=== PATIENT | female | born 1975 | race Caucasian/White ===

== ENCOUNTER 2017-07-15 23:12 | Emergency (ER) | payer MEDICAID, OTHER ==
[2017-07-16] MEDS ORDERED: Aspirin 81 MG Tab.Chew PO ONE (01:04)
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
== END 2017-07-16 01:40 | disposition home or self-care (01) ==
LOC: JP.ED 23:12
DX: G45.9 Transient cerebral ischemic attack, unspecified (principal); F17.210 Nicotine dependence, cigarettes, uncomplicated; Z88.8 Allergy status to other drugs, medicaments and biological substances
CPT/HCPCS: 36415; 70450; 80053; 80305; 81001; 85025; 85610; 85730; 93005; 93010; 99285; A9270; 99284

== ENCOUNTER 2017-07-29 17:49 | Emergency (ER) | payer MEDICAID ==
--- NOTE | 2017-07-29 18:38 | EDM.PDOC ---
ED HPI GENERAL MEDICAL PROBLEM - General Chief Complaint: Back Pain or Injury Stated Complaint: BACK PAIN Time Seen by Provider: 07/29/17 18:10 Source of Information: Reports: Patient, Family History Limitations: Reports: No Limitations - History of Present Illness INITIAL COMMENTS - FREE TEXT/NARRATIVE: 42-year-old female with several chronic medical conditions has apparently an ongoing problem with nephrolithiasis. She has left flank pain for the last 1-2 days, generalized body aches and chills. Nausea but no vomiting. Onset: Gradual (Over the past several days) Location: Reports: Abdomen, Back (Left flank) Quality: Reports: Ache, Pressure Severity: Moderate Associated Symptoms: Reports: Fever/Chills, Malaise, Other (Generalized myalgias ) - Related Data Allergies Allergy/AdvReac Type Severity Reaction Status Date / Time lamotrigine [From Lamictal] Allergy Leg Cramps Verified 07/16/17 00:00 ziprasidone [From Geodon] Allergy Airway Verified 07/16/17 00:00 Tightness Home Meds: Home Meds Albuterol Sulfate 1 ampule INH Q4HR 07/29/17 [History] Calcium Carbonate [Tums] 1 tab PO QID 07/29/17 [History] Cyanocobalamin (Vitamin B-12) [B-12] 1 tab PO DAILY 07/29/17 [History] Ferrous Gluconate 1 tab PO DAILY 07/29/17 [History] Folic Acid 1 tab PO DAILY 07/29/17 [History] Gabapentin [Neurontin] 2 tab PO BID 07/29/17 [History] Hydrocodone/Acetaminophen [Vicodin 5-300 mg Tablet] 1 tab PO Q4HR PRN 07/29/17 [ History] Lactulose 15 ml PO BID 07/29/17 [History] Magnesium Oxide [Magnesium] 1 tab PO BID 07/29/17 [History] Omeprazole 1 tab PO BID 07/29/17 [History] Ondansetron [Zofran ODT] 1 tab PO DAILY 07/29/17 [History] Rifaximin [Xifaxan] 1 tab PO TID 07/29/17 [History] Thiamine [Vitamin B-1] 1 tab PO DAILY 07/29/17 [History] hydrOXYzine Pamoate [Hydroxyzine Pamoate] 1 tab PO TID PRN 07/29/17 [History] levETIRAcetam [Keppra] 1 tab PO BID 07/29/17 [History] Past Medical History Cardiovascular History: Reports: [place], Other (See Below) Other Cardiovascular History: portal hypertension Gastrointestinal History: Reports: Cirrhosis, Other (See Below) Other Gastrointestinal History: ascites, liver disease,cholecystitis hepatic encephalopathy Genitourinary History: Reports: Renal Calculus 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: Other (See Below) Other OB/BYN History: Irregular [place] Neurological History: Reports: Brain Injury, Head Trauma, Seizure, Other (See Below) Other Neuro History: TBI ICH Skull defect Psychiatric History: Reports: Anxiety Hematologic History: Reports: Iron Deficiency, Other (See Below) Other Hematologic History: Hypokelemia,hypomagnesemia,hyponatremia Oncologic (Cancer) History: Reports: Cervix - Past Surgical History Cardiovascular Surgical History: Reports: Coronary Artery Bypass GI Surgical History: Reports: Cholecystectomy Social & Family History - Tobacco Use Smoking Status *Q: Current Every Day Smoker Years of Tobacco use: 35 Packs/Tins Daily: 0.2 Used Tobacco, but Quit: No Second Hand Smoke Exposure: Yes - Caffeine Use Caffeine Use: Reports: Coffee, Soda - Recreational Drug Use Recreational Drug Use: No ED ROS GENERAL - Review of Systems Review Of Systems: See Below Constitutional: Reports: Chills, Malaise HEENT: Reports: No Symptoms Respiratory: Denies: Shortness of Breath Cardiovascular: Reports: Other (History of a cardiac bypass). Denies: Chest Pain GI/Abdominal: Reports: Abdominal Pain. Denies: Vomiting : Reports: Incontinence (Chronic incontinence, some dysuria over the past several days) Neurological: Reports: Other (History of severe brain trauma/stroke) ED EXAM, GENERAL - Physical Exam Exam: See Below Exam Limited By: No Limitations General Appearance: Alert, Mild Distress (Looks uncomfortable but stable) Eye Exam: Bilateral Eye: EOMI Head: Other (Fairly large right-sided postsurgical deficit of the cranium) Respiratory/Chest: No Respiratory Distress, Lungs Clear Cardiovascular: Regular Rate, Rhythm GI/Abdominal: Soft, Tender (Reactive tenderness to palpation across the lower and left abdomen, questionable guarding and rebound is present) Neurological: Alert, Oriented Psychiatric: Flat Affect Skin Exam: Warm, Dry Course - Vital Signs Last Recorded V/S: Last Vital Signs Temp 97.5 F 07/29/17 18:26 Pulse 81 07/29/17 18:26 Resp 18 07/29/17 18:26 BP 137/80 07/29/17 18:26 Pulse Ox 98 07/29/17 18:26 - Orders/Labs/Meds Orders: Active Orders 24 hr Category Date Time Status Abdomen Pelvis wo Cont [CT] Stat Exams 07/29/17 18:34 Taken CULTURE URINE [RM] Stat Lab 07/29/17 19:07 Received Labs: Laboratory Tests 07/29/17 07/29/17 07/29/17 Range/Units 18:49 18:49 19:23 WBC 5.0 (4.5-11.0) K/uL RBC 3.29 L (3.30-5.50) M/uL Hgb 10.2 L (12.0-15.0) g/dL Hct 32.0 L (36.0-48.0) % MCV 97 (80-98) fL MCH 31 (27-31) pg MCHC 32 (32-36) % Plt Count 108 L (150-400) K/uL Neut % (Auto) 31 L (36-66) % Lymph % (Auto) 50 H (24-44) % [place] % (Auto) 11 H (2-6) % Eos % (Auto) 7 H (2-4) % Baso % (Auto) 1 (0-1) % Sodium (140-148) mmol/L Potassium (3.6-5.2) mmol/L Chloride (100-108) mmol/L Carbon Dioxide (21-32) mmol/L Anion Gap (5.0-14.0) mmol/L BUN (7-18) mg/dL Creatinine (0.6-1.0) mg/dL Est Cr Clr Drug Dosing mL/min Estimated GFR (MDRD) (>60) Glucose (74-106) mg/dL Calcium (8.5-10.1) mg/dL Urine Color Yellow Urine Appearance Slightly cloudy Urine pH 6.5 (4.5-8.0) Ur Specific [place] 1.015 (1.008-1.030) Urine Protein 30 H (NEGATIVE) mg/dL Urine Glucose (UA) Normal (NEGATIVE) mg/dL Urine Ketones Negative (NEGATIVE) mg/dL Urine Occult Blood Large (NEGATIVE) Urine Nitrite Negative (NEGATIVE) Urine Bilirubin Negative (NEGATIVE) Urine Urobilinogen Normal (NORMAL) mg/dL Ur Leukocyte Esterase Large (NEGATIVE) Urine RBC Semi-packed H (0-5) Urine WBC >100 H (0-5) Ur Epithelial Cells Few Amorphous Sediment Not seen Urine Bacteria Many Urine Mucus Few Urine Opiates Screen Negative (NEGATIVE) Ur Oxycodone Screen Negative (NEGATIVE) Urine Methadone Screen Negative (NEGATIVE) Ur Propoxyphene Screen Negative (NEGATIVE) Ur Barbiturates Screen Negative (NEGATIVE) Ur Tricyclics Screen Negative (NEGATIVE) Ur Phencyclidine Scrn Negative (NEGATIVE) Ur Amphetamine Screen Negative (NEGATIVE) U Methamphetamines Scrn Negative (NEGATIVE) Urine MDMA Screen Negative (NEGATIVE) U Benzodiazepines Scrn Negative (NEGATIVE) U Cocaine Metab Screen Negative (NEGATIVE) U Marijuana (THC) Screen Negative (NEGATIVE) 07/29/17 Range/Units 19:23 WBC (4.5-11.0) K/uL RBC (3.30-5.50) M/uL Hgb (12.0-15.0) g/dL Hct (36.0-48.0) % MCV (80-98) fL MCH (27-31) pg MCHC (32-36) % Plt Count (150-400) K/uL Neut % (Auto) (36-66) % Lymph % (Auto) (24-44) % [place] % (Auto) (2-6) % Eos % (Auto) (2-4) % Baso % (Auto) (0-1) % Sodium 148 (140-148) mmol/L Potassium 3.5 L (3.6-5.2) mmol/L Chloride 114 H (100-108) mmol/L Carbon Dioxide 26 (21-32) mmol/L Anion Gap 11.5 (5.0-14.0) mmol/L BUN 10 (7-18) mg/dL Creatinine 0.9 (0.6-1.0) mg/dL Est Cr Clr Drug Dosing 65.98 mL/min Estimated GFR (MDRD) > 60 (>60) Glucose 91 (74-106) mg/dL Calcium 8.4 L (8.5-10.1) mg/dL Urine Color Urine Appearance Urine pH (4.5-8.0) Ur Specific [place] (1.008-1.030) Urine Protein (NEGATIVE) mg/dL Urine Glucose (UA) (NEGATIVE) mg/dL Urine Ketones (NEGATIVE) mg/dL Urine Occult Blood (NEGATIVE) Urine Nitrite (NEGATIVE) Urine Bilirubin (NEGATIVE) Urine Urobilinogen (NORMAL) mg/dL Ur Leukocyte Esterase (NEGATIVE) Urine RBC (0-5) Urine WBC (0-5) Ur Epithelial Cells Amorphous Sediment Urine Bacteria Urine Mucus Urine Opiates Screen (NEGATIVE) Ur Oxycodone Screen (NEGATIVE) Urine Methadone Screen (NEGATIVE) Ur Propoxyphene Screen (NEGATIVE) Ur Barbiturates Screen (NEGATIVE) Ur Tricyclics Screen (NEGATIVE) Ur Phencyclidine Scrn (NEGATIVE) Ur Amphetamine Screen (NEGATIVE) U Methamphetamines Scrn (NEGATIVE) Urine MDMA Screen (NEGATIVE) U Benzodiazepines Scrn (NEGATIVE) U Cocaine Metab Screen (NEGATIVE) U Marijuana (THC) Screen (NEGATIVE) Meds: Medications Discontinued Medications Generic Name Dose Route Start Last Admin Trade Name Freq PRN Reason Stop Dose Admin Ciprofloxacin 500 mg 07/29/17 21:52 07/29/17 21:54 Ciprofloxacin Hcl PO 07/29/17 21:53 500 mg ONETIME ONE Administration Ciprofloxacin Confirm 07/29/17 21:52 Ciprofloxacin Hcl Administered 07/29/17 21:53 Dose 500 mg .ROUTE .STK-MED ONE Hydromorphone HCl 0.5 mg 07/29/17 19:12 07/29/17 20:03 Dilaudid IVPUSH 07/29/17 19:13 0.5 mg ONETIME ONE Administration Sodium Chloride 1,000 mls @ 500 mls/hr 07/29/17 19:15 07/29/17 19:42 Normal Saline IV 500 mls/hr ASDIRECTED JOSE Administration Ceftriaxone Sodium 2 gm/ 50 mls @ 100 mls/hr 07/29/17 19:15 07/29/17 19:43 Sodium Chloride IV 07/29/17 19:44 100 mls/hr ONETIME ONE Administration Ondansetron HCl 4 mg 07/29/17 19:57 07/29/17 20:03 Zofran IVPUSH 07/29/17 19:58 4 mg ONETIME ONE Administration Ondansetron HCl Confirm 07/29/17 19:59 07/29/17 20:04 Zofran Administered 07/29/17 20:00 Not Given Dose 4 mg .ROUTE .STK-MED ONE - Re-Assessments/Exams Free Text/Narrative Re-Assessment/Exam: 07/29/17 19:21 Initially a UA was obtained by miniature catheterization, which was packed with RBCs, WBCs and bacteria. A CT of the abdomen and pelvis without contrast was obtained which showed a stent in the left ureter. The patient did not disclose this in her history. When I questioned her about it she said that she had had the stent placed about 2 months ago. She then admitted she was supposed to follow-up in one month but did not make her follow-up appointment because she was in a "bad place". A CBC and BMP were then obtained, a urine culture was initiated and the patient was given 2 g of Rocephin IV. When lab reports return and the CT iss read, urology at [place] will be consulted. 07/29/17 20:21 CT was read with the following findings 1. Left nephroureteral stent appears in satisfactory position but there is moderate dilatation of left renal pelvis and intrarenal collecting system. If clinically desired further evaluation could be done to ensure the left nephro ureteral stent is patent and functioning properly. 2. Small stones in both kidneys. No ureteral stones. 3. Tips procedure. 4. Postsurgical changes mid and upper abdomen. 5. Mild soft tissue stranding about the urinary bladder as well as the left ureter and renal pelvis which could be in part related to the left nephro ureteral stent but cannot exclude cystitis with pyelitis. Clinical and laboratory correlation recommended. Other findings as above. These were discussed with urology. It was asked that she was placed on Cipro 500 twice daily and they will contact her with a fairly urgent recheck appointment this week for stent removal. She'll also be provided with 10 hydrocodone for extra pain control. Departure - Departure Time of Disposition: 21:55 Disposition: Home, Self-Care 01 Condition: Fair Clinical Impression: UTI (urinary tract infection) Qualifiers: Urinary tract infection type: site unspecified Hematuria presence: with hematuria Qualified Code(s): N39.0 - Urinary tract infection, site not specified - Discharge Information Instructions: Urinary Tract Infection, Adult Referrals: PCP,None [Primary Care Provider] - Forms: ED Department Discharge Care Plan Goals: Take antibiotic twice daily as prescribed, starting tonight. Get plenty of fluids and you need a recheck appointment with urology in [place] this week. They will try to contact you but she should also call them if you do not hear from them tomorrow. Dr. Babin is expecting to see you this week. - My Orders Last 24 Hours: My Active Orders 07/29/17 18:34 Abdomen Pelvis wo Cont [CT] Stat 07/29/17 19:07 CULTURE URINE [RM] Stat - Assessment/Plan Last 24 Hours: My Active Orders 07/29/17 18:34 Abdomen Pelvis wo Cont [CT] Stat 07/29/17 19:07 CULTURE URINE [RM] Stat
[2017-07-29] MEDS ORDERED: HYDROmorphone 0.5 MG/0.5 ML Syringe IVPUSH ONE (19:12)
[2017-07-29] MEDS ORDERED: Sodium Chloride 0.9% 1,000 ML IV SCH (19:15)
[2017-07-29] MEDS ORDERED: cefTRIAXone 2 GM in Sodium Chloride 0.9% 50 ML IV ONE (19:15)
[2017-07-29] MEDS ORDERED: Ondansetron 4 MG/2 ML SDV IVPUSH ONE (19:57)
[2017-07-29] MEDS ORDERED: Ondansetron 4 MG/2 ML SDV ONE (19:59)
[2017-07-29] MEDS ORDERED: Ciprofloxacin 500 MG Tab PO ONE (21:52)
[2017-07-29] MEDS ORDERED: Ciprofloxacin 500 MG Tab ONE (21:52)
== END 2017-07-29 21:55 | disposition home or self-care (01) ==
LOC: JP.ED 17:49
DX: N39.0 Urinary tract infection, site not specified (principal); N20.0 Calculus of kidney; F17.210 Nicotine dependence, cigarettes, uncomplicated; Z88.8 Allergy status to other drugs, medicaments and biological substances; Z79.899 Other long term (current) drug therapy
CPT/HCPCS: 36415; 74176; 80048; 80305; 81001; 85025; 87086; 87088; 87186; 96361; 96365; 96375; 99284; A9270; J0696; J1170; J2405; J7040; J7050

== ENCOUNTER 2017-08-08 20:29 | Emergency (ER) | payer MEDICAID ==
--- NOTE | 2017-08-08 20:54 | EDM.PDOC ---
ED HPI GENERAL MEDICAL PROBLEM - General Chief Complaint: Genitourinary Problem Stated Complaint: BLADDER INFECTION??? Time Seen by Provider: 08/08/17 21:10 Source of Information: Reports: Patient, Old Records, RN History Limitations: Reports: No Limitations - History of Present Illness INITIAL COMMENTS - FREE TEXT/NARRATIVE: 42 yo female with a stent on the L for several weeks. Says she hasn't been able to get a ride to [place] to get it out. Placed for a kidney stone. Has a culture of her urine 07/29 that showed infection with Klebsiella. Didn't take her ATB as she doesn't have Medicaid yet. Moved to [facility] from [place] recently. Now dysuria and nausea without vomiting. [place] feverish in the night last night. 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: Other (see below) (none) Lower Abdominal Pain Score (Numeric/FACES): 9 - Related Data Allergies Allergy/AdvReac Type Severity Reaction Status Date / Time Fish Containing Products Allergy Airway Verified 08/08/17 20:58 Tightness lamotrigine [From Lamictal] Allergy Leg Cramps Verified 08/08/17 20:58 tree nut Allergy Hives Verified 08/08/17 20:58 ziprasidone [From Geodon] Allergy Airway Verified 08/08/17 20:58 Tightness Home Meds: Home Meds Albuterol Sulfate 1 ampule INH Q4HR 07/29/17 [History] Calcium Carbonate [Tums] 1 tab PO QID 07/29/17 [History] Cyanocobalamin (Vitamin B-12) [B-12] 1 tab PO DAILY 07/29/17 [History] Ferrous Gluconate 1 tab PO DAILY 07/29/17 [History] Folic Acid 1 tab PO DAILY 07/29/17 [History] Gabapentin [Neurontin] 2 tab PO BID 07/29/17 [History] Hydrocodone/Acetaminophen [Vicodin 5-300 mg Tablet] 1 tab PO Q4HR PRN 07/29/17 [ History] Lactulose 15 ml PO BID 07/29/17 [History] Magnesium Oxide [Magnesium] 1 tab PO BID 07/29/17 [History] Omeprazole 1 tab PO BID 07/29/17 [History] Ondansetron [Zofran ODT] 1 tab PO DAILY 07/29/17 [History] Rifaximin [Xifaxan] 1 tab PO TID 07/29/17 [History] Thiamine [Vitamin B-1] 1 tab PO DAILY 07/29/17 [History] hydrOXYzine Pamoate [Hydroxyzine Pamoate] 1 tab PO TID PRN 07/29/17 [History] levETIRAcetam [Keppra] 1 tab PO BID 07/29/17 [History] Past Medical History Cardiovascular History: Reports: [place], Other (See Below) Other Cardiovascular History: portal hypertension Gastrointestinal History: Reports: Cirrhosis, Other (See Below) Other Gastrointestinal History: ascites, liver disease,cholecystitis hepatic encephalopathy Genitourinary History: Reports: Renal Calculus 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) Other OB/BYN History: Irregular [place] Neurological History: Reports: Brain Injury, Head Trauma, Seizure, Other (See Below) Other Neuro History: TBI ICH Skull defect Psychiatric History: Reports: Anxiety Hematologic History: Reports: Iron Deficiency, Other (See Below) Other Hematologic History: Hypokelemia,hypomagnesemia,hyponatremia Oncologic (Cancer) History: Reports: Cervix - Past Surgical History Cardiovascular Surgical History: Reports: Coronary Artery Bypass GI Surgical History: Reports: Cholecystectomy Social & Family History - Tobacco Use Smoking Status *Q: Current Every Day Smoker Years of Tobacco use: 35 Packs/Tins Daily: 0.2 Used Tobacco, but Quit: No Second Hand Smoke Exposure: Yes - Caffeine Use Caffeine Use: Reports: Coffee, Soda - Recreational Drug Use Recreational Drug Use: No ED ROS GENERAL - Review of Systems Review Of Systems: See Below Constitutional: Reports: Fever, Chills (last night) HEENT: Reports: No Symptoms Respiratory: Reports: No Symptoms Cardiovascular: Reports: No Symptoms GI/Abdominal: Reports: Nausea. Denies: Abdominal Pain, Anorexia, Black Stool, Bloody Stool, Constipation, Diarrhea, Decreased Appetite, Hematemesis, Hematochezia, Melena, Vomiting : Reports: Dysuria. Denies: Flank Pain, Hematuria Musculoskeletal: Reports: No Symptoms Skin: Reports: No Symptoms ED EXAM, RENAL/ - Physical Exam Exam: See Below Exam Limited By: No Limitations General Appearance: Alert, WD/WN, No Apparent Distress Eye Exam: Bilateral Eye: Normal Inspection Ears: Normal External Exam, Normal Canal, Hearing Grossly Normal Nose: Normal Inspection, Normal Mucosa, No Blood Throat/Mouth: Normal Inspection, Normal Lips, Normal Oropharynx, Normal Voice, No Airway Compromise Head: Atraumatic, Normocephalic Neck: Normal Inspection Respiratory/Chest: No Respiratory Distress, Lungs Clear, Normal Breath Sounds, No Accessory Muscle Use Cardiovascular: Regular Rate, Rhythm, No Edema GI/Abdominal: Normal Bowel Sounds, Soft, Non-Tender, No Distention Back Exam: Normal Inspection. No: CVA Tenderness (R), CVA Tenderness (L) Extremities: Normal Inspection, Normal Range of Motion, Non-Tender, No Pedal Edema Neurological: Alert, Oriented, CN II-XII Intact, Normal Cognition, Normal Gait, No Motor/Sensory Deficits Psychiatric: Normal Affect, Normal Mood Skin Exam: Warm, Dry, Intact, Normal Color, No Rash Lymphatic: No Adenopathy Course - Vital Signs Last Recorded V/S: Last Vital Signs Temp 37.1 C 08/08/17 21:04 Pulse 87 08/08/17 21:04 Resp 16 08/08/17 21:04 BP 117/54 L 08/08/17 21:04 Pulse Ox 97 08/08/17 21:04 - Orders/Labs/Meds Orders: Active Orders 24 hr Category Date Time Status CULTURE URINE [RM] Stat Lab 08/08/17 21:10 Received Labs: Laboratory Tests 08/08/17 Range/Units 20:52 Urine Color Yellow Urine Appearance Cloudy Urine pH 6.5 (4.5-8.0) Ur Specific [place] 1.015 (1.008-1.030) Urine Protein 30 H (NEGATIVE) mg/dL Urine Glucose (UA) Normal (NEGATIVE) mg/dL Urine Ketones Negative (NEGATIVE) mg/dL Urine Occult Blood Large (NEGATIVE) Urine Nitrite Negative (NEGATIVE) Urine Bilirubin Negative (NEGATIVE) Urine Urobilinogen Normal (NORMAL) mg/dL Ur Leukocyte Esterase Large (NEGATIVE) Urine RBC Semi-packed H (0-5) Urine WBC Semi-packed H (0-5) Ur Epithelial Cells Few Amorphous Sediment Not seen Urine Bacteria Many Urine Mucus Few Meds: Medications Discontinued Medications Generic Name Dose Route Start Last Admin Trade Name Juan PRN Reason Stop Dose Admin Ceftriaxone Sodium 1 gm 08/08/17 21:17 Rocephin IM 08/08/17 21:18 ONETIME ONE Cephalexin 500 mg 08/08/17 21:11 Keflex PO 08/08/17 21:12 ONETIME ONE Ketorolac Tromethamine 30 mg 08/08/17 21:18 Toradol IM 08/08/17 21:19 ONETIME ONE Ondansetron HCl 4 mg 08/08/17 21:18 Zofran Odt PO 08/08/17 21:19 ONETIME ONE Departure - Departure Time of Disposition: 21:45 Disposition: Home, Self-Care 01 Condition: Fair Clinical Impression: UTI, Urinary tract infectious disease, Non-compliance - Discharge Information Referrals: PCP,None [Primary Care Provider] - Forms: ED Department Discharge - My Orders Last 24 Hours: My Active Orders 08/08/17 21:10 CULTURE URINE [RM] Stat - Assessment/Plan Last 24 Hours: My Active Orders 08/08/17 21:10 CULTURE URINE [RM] Stat
[2017-08-08] MEDS ORDERED: Cephalexin 250 MG Cap PO ONE (21:11)
[2017-08-08] MEDS ORDERED: cefTRIAXone 1 GM Vial IM ONE (21:17)
[2017-08-08] MEDS ORDERED: Ketorolac 30 MG/ML SDV IM ONE (21:18)
[2017-08-08] MEDS ORDERED: Ondansetron 4 MG Tab.DIS PO ONE (21:18)
== END 2017-08-08 22:24 | disposition home or self-care (01) ==
LOC: JP.ED 20:29
DX: N39.0 Urinary tract infection, site not specified (principal); F17.210 Nicotine dependence, cigarettes, uncomplicated; Z91.013 Allergy to seafood; Z91.09 Other allergy status, other than to drugs and biological substances; Z88.8 Allergy status to other drugs, medicaments and biological substances; Z79.899 Other long term (current) drug therapy
CPT/HCPCS: 81001; 87086; 96372; 99284; A9270; J0696; J1885; 99283

== ENCOUNTER 2017-08-11 04:00 | Emergency (ER) | payer MEDICAID ==
[2017-08-11] MEDS ORDERED: Ketorolac 60 MG/2 ML SDV IM ONE (04:44)
[2017-08-11] MEDS ORDERED: cefTRIAXone 1 GM, Lidocaine 1% 2.1 ML IM ONE ×2 (04:45)
--- NOTE | 2017-08-11 04:51 | EDM.PDOC ---
ED HPI GENERAL MEDICAL PROBLEM - General Chief Complaint: Genitourinary Problem Stated Complaint: UTI Time Seen by Provider: 08/11/17 04:46 Source of Information: Reports: Patient, Family, Old Records, RN Notes Reviewed History Limitations: Reports: No Limitations - History of Present Illness INITIAL COMMENTS - FREE TEXT/NARRATIVE: 42-year-old female presents emergency department day complaint of painful urination and blood in urine she was evaluated in the emergency department on the of this month just 3 days prior found to have a urinary tract infection does have a history of a urethral stent is well, she was able to fill the narcotic prescription but was unable to fill the antibiotic prescription she states her symptoms have gotten worse. Bladder Pain Score (Numeric/FACES): 9 - Related Data Allergies Allergy/AdvReac Type Severity Reaction Status Date / Time Fish Containing Products Allergy Airway Verified 08/11/17 04:19 Tightness lamotrigine [From Lamictal] Allergy Leg Cramps Verified 08/11/17 04:19 tree nut Allergy Hives Verified 08/11/17 04:19 ziprasidone [From Geodon] Allergy Airway Verified 08/11/17 04:19 Tightness Home Meds: Home Meds Albuterol Sulfate 1 ampule INH Q4HR 07/29/17 [History] Calcium Carbonate [Tums] 1 tab PO QID 07/29/17 [History] Cyanocobalamin (Vitamin B-12) [B-12] 1 tab PO DAILY 07/29/17 [History] Ferrous Gluconate 1 tab PO DAILY 07/29/17 [History] Folic Acid 1 tab PO DAILY 07/29/17 [History] Gabapentin [Neurontin] 2 tab PO BID 07/29/17 [History] Hydrocodone/Acetaminophen [Vicodin 5-300 mg Tablet] 1 tab PO Q4HR PRN 07/29/17 [ History] Lactulose 15 ml PO BID 07/29/17 [History] Magnesium Oxide [Magnesium] 1 tab PO BID 07/29/17 [History] Omeprazole 1 tab PO BID 07/29/17 [History] Ondansetron [Zofran ODT] 1 tab PO DAILY 07/29/17 [History] Rifaximin [Xifaxan] 1 tab PO TID 07/29/17 [History] Thiamine [Vitamin B-1] 1 tab PO DAILY 07/29/17 [History] hydrOXYzine Pamoate [Hydroxyzine Pamoate] 1 tab PO TID PRN 07/29/17 [History] levETIRAcetam [Keppra] 1 tab PO BID 07/29/17 [History] Past Medical History HEENT History: Reports: Hard of Hearing, Impaired Vision Cardiovascular History: Reports: [place], Other (See Below) Other Cardiovascular History: portal hypertension Gastrointestinal History: Reports: Cirrhosis, Other (See Below) Other Gastrointestinal History: ascites, liver disease,cholecystitis hepatic encephalopathy Genitourinary History: Reports: Renal Calculus 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) Other OB/BYN History: Irregular montes [place] oca Neurological History: Reports: Brain Injury, Head Trauma, Seizure, Other (See Below) Other Neuro History: TBI ICH Skull defect Psychiatric History: Reports: Anxiety Hematologic History: Reports: Iron Deficiency, Other (See Below) Other Hematologic History: Hypokelemia,hypomagnesemia,hyponatremia Oncologic (Cancer) History: Reports: Cervix - Infectious Disease History Infectious Disease History: Reports: Chicken Pox - Past Surgical History Cardiovascular Surgical History: Reports: Coronary Artery Bypass GI Surgical History: Reports: Cholecystectomy Social & Family History - Tobacco Use Smoking Status *Q: Current Every Day Smoker Years of Tobacco use: 35 Packs/Tins Daily: 0.2 Used Tobacco, but Quit: No Second Hand Smoke Exposure: Yes - Caffeine Use Caffeine Use: Reports: Coffee, Soda - Recreational Drug Use Recreational Drug Use: No ED ROS GENERAL - Review of Systems Review Of Systems: See Below Constitutional: Reports: No Symptoms HEENT: Reports: No Symptoms Respiratory: Reports: No Symptoms Cardiovascular: Reports: No Symptoms GI/Abdominal: Reports: Abdominal Pain : Reports: Dysuria, Hematuria Musculoskeletal: Reports: No Symptoms Skin: Reports: No Symptoms ED EXAM, GI/ABD - Physical Exam Exam: See Below Exam Limited By: No Limitations General Appearance: Alert, WD/WN, No Apparent Distress Respiratory/Chest: No Respiratory Distress GI/Abdominal Exam: Soft, Tender (Suprapubic region) Course - Vital Signs Last Recorded V/S: Last Vital Signs Temp 97.1 F 08/11/17 04:30 Pulse 73 08/11/17 04:30 Resp 16 08/11/17 04:30 BP 133/69 08/11/17 04:30 Pulse Ox 99 08/11/17 04:30 - Orders/Labs/Meds Orders: Active Orders 24 hr Category Date Time Status Ketorolac [Toradol] Med 08/11/17 04:44 Once 60 mg IM ONETIME ONE cefTRIAXone 1 GM,Lidocaine 1% 2.1 ML Med 08/11/17 04:45 Ordered cefTRIAXone [Rocephin] 1 gm Lidocaine 1% [Xylocaine-MPF 1%] 2.1 ml IM ONETIME Departure - Departure Time of Disposition: 04:49 Disposition: Home, Self-Care 01 Condition: Poor Clinical Impression: Non-compliance, UTI, Urinary tract infectious disease - Discharge Information Referrals: PCP,None [Primary Care Provider] - Additional Instructions: Filled with your prior written prescriptions complete full course of antibiotics , follow-up with urology for stent removal, Please followup with your primary care provider in 3-5 days if not better, please call return to the emergency department with worsening of symptoms. - My Orders Last 24 Hours: My Active Orders 08/11/17 04:44 Ketorolac [Toradol] 60 mg IM ONETIME ONE 08/11/17 04:45 cefTRIAXone 1 GM,Lidocaine 1% 2.1 ML cefTRIAXone [Rocephin] 1 gm Lidocaine 1% [ Xylocaine-MPF 1%] 2.1 ml IM ONETIME - Assessment/Plan Last 24 Hours: My Active Orders 08/11/17 04:44 Ketorolac [Toradol] 60 mg IM ONETIME ONE 08/11/17 04:45 cefTRIAXone 1 GM,Lidocaine 1% 2.1 ML cefTRIAXone [Rocephin] 1 gm Lidocaine 1% [ Xylocaine-MPF 1%] 2.1 ml IM ONETIME Plan: Assessment Acuity = acute Site and laterality = urinary tract infection complicated patient with poor medical compliance Etiology = probable bacterial cause Manifestations = none Location of injury = Home Lab values = none Plan She states she still has the prescriptions recommended she fill the prescription written for her and complete the course of antibiotics follow up with urology for the stent removal she was provided 1 g Rocephin now and 60 mg of Toradol Patient was in agreement with the plan all questions were answered, they were instructed to return to the emergency department or call for worsening symptoms. This note was dictated using [employer] voice recognition software please call with any questions.
== END 2017-08-11 05:16 | disposition home or self-care (01) ==
LOC: JP.ED 04:00
DX: N39.0 Urinary tract infection, site not specified (principal); Z87.442 Personal history of urinary calculi; Z91.14 Patient's other noncompliance with medication regimen; F17.210 Nicotine dependence, cigarettes, uncomplicated; Z88.8 Allergy status to other drugs, medicaments and biological substances; Z91.013 Allergy to seafood; Z91.018 Allergy to other foods; Z90.49 Acquired absence of other specified parts of digestive tract
CPT/HCPCS: 96372; 99283; J0696; J1885

== ENCOUNTER 2017-08-15 02:21 | Emergency (ER) | payer MEDICAID ==
[2017-08-15] MEDS ORDERED: Acetaminophen/HYDROcodone 325-5 MG Tab PO ONE (03:57)
[2017-08-15] MEDS ORDERED: Sulfamethoxazole/Trimethoprim 200-40 MG/5 ML Susp ML (473 ML Bottle) PO ONE (03:59)
[2017-08-15] MEDS ORDERED: Sulfamethoxazole/Trimethoprim 800-160 MG Tab PO ONE (04:08)
--- NOTE | 2017-08-15 04:10 | EDM.PDOC ---
ED HPI GENERAL MEDICAL PROBLEM - General Chief Complaint: Genitourinary Problem Stated Complaint: UTI Time Seen by Provider: 08/15/17 03:15 Source of Information: Reports: Patient, Old Records, RN Notes Reviewed History Limitations: Reports: No Limitations - History of Present Illness INITIAL COMMENTS - FREE TEXT/NARRATIVE: Brought by friend Chief complaint Flank pain and dysuria History of present illness 42-year-old female with history of hepatic disease with cirrhosis, hepatic encephalopathy, cerebral bleed requiring craniotomy recently moved back to the area She had been treated with left ureteral stent for kidney stones about 2 months ago. Presented to emergency here July 29 with flank pain hematuria positive urinalysis and was prescribed Cipro. Symptoms improved but she was seen again with similar symptoms on August 08 and prescribed cephalexin which she didn't fill because of financial problems. Seen again with similar symptoms August 11 and as she had not filled her prescription she was given an intravenous dose of ceftriaxone and ketorolac for pain and instructed to feel her a prescription of cephalexin. She is still taking cephalexin her pains did improve briefly but lastly 4 hours as her symptoms have relapsed and are worse than ever before. Unable to sleep tonight. Decreased appetite. No vomiting no fever or chills In addition to dysuria she also has fairly severe flank pain she is hematuria and she has incontinence of urine to the point that she wears pads. She still has a stent in place and this could be a focus for infection although she has no fever and previous blood test did not show any elevation of white count Left Flank Pain Score (Numeric/FACES): 10 - Related Data Allergies Allergy/AdvReac Type Severity Reaction Status Date / Time Fish Containing Products Allergy Airway Verified 08/15/17 02:34 Tightness lamotrigine [From Lamictal] Allergy Leg Cramps Verified 08/15/17 02:34 tree nut Allergy Hives Verified 08/15/17 02:34 ziprasidone [From Geodon] Allergy Airway Verified 08/15/17 02:34 Tightness Home Meds: Home Meds Albuterol Sulfate 1 ampule INH Q4HR 07/29/17 [History] Calcium Carbonate [Tums] 1 tab PO QID 07/29/17 [History] Cyanocobalamin (Vitamin B-12) [B-12] 1 tab PO DAILY 07/29/17 [History] Ferrous Gluconate 1 tab PO DAILY 07/29/17 [History] Folic Acid 1 tab PO DAILY 07/29/17 [History] Gabapentin [Neurontin] 2 tab PO BID 07/29/17 [History] Lactulose 15 ml PO BID 07/29/17 [History] Magnesium Oxide [Magnesium] 1 tab PO BID 07/29/17 [History] Omeprazole 1 tab PO BID 07/29/17 [History] Ondansetron [Zofran ODT] 1 tab PO DAILY 07/29/17 [History] Rifaximin [Xifaxan] 1 tab PO TID 07/29/17 [History] Thiamine [Vitamin B-1] 1 tab PO DAILY 07/29/17 [History] hydrOXYzine Pamoate [Hydroxyzine Pamoate] 1 tab PO TID PRN 07/29/17 [History] levETIRAcetam [Keppra] 1 tab PO BID 07/29/17 [History] Acetaminophen/HYDROcodone [[place] 325-5 MG] 1 - 2 tab PO Q4H PRN #10 tab [Rx] Cephalexin 500 mg PO TID 08/15/17 [History] Sulfamethoxazole/Trimethoprim [Septra Susp 200-40 MG/5 ML] 20 ml PO BID 10 Days #200 ml 08/15/17 [Rx] Past Medical History HEENT History: Reports: Hard of Hearing, Impaired Vision Cardiovascular History: Reports: [place], Other (See Below) Other Cardiovascular History: portal hypertension Gastrointestinal History: Reports: Cirrhosis, Other (See Below) Other Gastrointestinal History: ascites, liver disease,cholecystitis hepatic encephalopathy Genitourinary History: Reports: 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 Calculus 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) Other OB/BYN History: Irregular montes de oca Musculoskeletal History: Reports: Fracture Other Musculoskeletal History: colar bone Neurological History: Reports: Brain Injury, Head Trauma, Seizure, Other (See Below) Other Neuro History: TBI ICH Skull defect Psychiatric History: Reports: Anxiety Hematologic History: Reports: Iron Deficiency, Other (See Below) Other Hematologic History: Hypokelemia,hypomagnesemia,hyponatremia Oncologic (Cancer) History: Reports: Cervix - Infectious Disease History Infectious Disease History: Reports: Chicken Pox - Past Surgical History Cardiovascular Surgical History: Reports: Coronary Artery Bypass GI Surgical History: Reports: Cholecystectomy Social & Family History - Tobacco Use Smoking Status *Q: Current Every Day Smoker Years of Tobacco use: 35 Packs/Tins Daily: 0.2 Used Tobacco, but Quit: No Second Hand Smoke Exposure: Yes - Caffeine Use Caffeine Use: Reports: Coffee, Soda - Recreational Drug Use Recreational Drug Use: No ED ROS GENERAL - Review of Systems Review Of Systems: See Below Constitutional: Reports: Malaise. Denies: Fever, Chills HEENT: Reports: No Symptoms Respiratory: Reports: Shortness of Breath, Cough Cardiovascular: Reports: No Symptoms Endocrine: Reports: Fatigue GI/Abdominal: Reports: Abdominal Pain, Diarrhea (on lactulose) : Reports: Dysuria, Flank Pain, Frequency, Hematuria, Incontinence, Pain Musculoskeletal: Reports: Neck Pain Skin: Reports: No Symptoms ED EXAM, RENAL/ - Physical Exam Exam: See Below Exam Limited By: No Limitations General Appearance: Alert, Mild Distress, Other (Afebrile, normal pulse and pressure, no difficulty speaking or breathing) Eye Exam: Bilateral Eye: Normal Inspection Throat/Mouth: Normal Inspection, Normal Lips Head: Atraumatic Neck: Supple Respiratory/Chest: No Respiratory Distress, No Accessory Muscle Use Cardiovascular: Normal Peripheral Pulses, Regular Rate, Rhythm GI/Abdominal: Normal Bowel Sounds, Soft, No Mass, Tender Extremities: Non-Tender, No Pedal Edema Neurological: Alert, Normal Cognition, No Motor/Sensory Deficits Skin Exam: Warm, Dry, Intact, No Rash Lymphatic: No Adenopathy Course - Vital Signs Last Recorded V/S: Last Vital Signs Temp 36.9 C 08/15/17 02:45 Pulse 74 08/15/17 02:45 Resp 16 08/15/17 02:45 BP 136/68 08/15/17 02:45 Pulse Ox 99 08/15/17 02:45 - Orders/Labs/Meds Orders: Active Orders 24 hr Category Date Time Status CULTURE URINE [RM] Stat Lab 08/15/17 04:00 Ordered Labs: Laboratory Tests 08/15/17 Range/Units 03:09 Urine Color Red Urine Appearance Cloudy Urine pH 6.0 (4.5-8.0) Ur Specific [place] 1.020 (1.008-1.030) Urine Protein 500 H (NEGATIVE) mg/dL Urine Glucose (UA) Normal (NEGATIVE) mg/dL Urine Ketones Negative (NEGATIVE) mg/dL Urine Occult Blood Large (NEGATIVE) Urine Nitrite Negative (NEGATIVE) Urine Bilirubin Negative (NEGATIVE) Urine Urobilinogen Normal (NORMAL) mg/dL Ur Leukocyte Esterase Large (NEGATIVE) Urine RBC Packed H (0-5) Urine WBC (0-5) Meds: Medications Discontinued Medications Generic Name Dose Route Start Last Admin Trade Name Freq PRN Reason Stop Dose Admin Hydrocodone Bitart/Acetaminophen 1 tab 08/15/17 03:57 08/15/17 04:20 [place] 325-5 Mg PO 08/15/17 03:58 1 tab ONETIME ONE Administration Trimethoprim/Sulfamethoxazole 20 ml 08/15/17 03:59 Septra PO 08/15/17 04:00 STAT ONE Trimethoprim/Sulfamethoxazole 1 tab 08/15/17 04:08 08/15/17 04:20 Septra Ds PO 08/15/17 04:09 1 tab ONETIME ONE Administration - Re-Assessments/Exams Free Text/Narrative Re-Assessment/Exam: 08/15/17 04:22 42-year-old female with flank pain dysuria frequency and incontinence. Similar symptoms for which she was seen twice earlier in emergency this month. She still has a stent in place which could be contributing to her urinary tract infection Urinalysis here shows pyuria and red cells and bacteria Urine culture is pending Septra DS one tablet by mouth Hydrocodone/acetaminophen 5/325, 2 tablets by mouth See discharge instructions 08/15/17 04:23 Departure - Departure Time of Disposition: 04:15 Disposition: Home, Self-Care 01 Condition: Undetermined Clinical Impression: Urinary tract infection Qualifiers: Urinary tract infection type: site unspecified Hematuria presence: with hematuria Qualified Code(s): N39.0 - Urinary tract infection, site not specified - Discharge Information Prescriptions: Acetaminophen/HYDROcodone [[place] 325-5 MG] 1 - 2 tab PO Q4H PRN #10 tab PRN Reason: Moderate to severe pain Sulfamethoxazole/Trimethoprim [Septra Susp 200-40 MG/5 ML] 20 ml PO BID 10 Days #200 ml Referrals: PCP,None [Primary Care Provider] - Forms: ED Department Discharge Additional Instructions: Continue the finish the cephalexin Continue taking a probiotic or yogurt daily to prevent C. difficile colitis See your physician/clinic for urine recheck Make an appointment with urology for stent removal - My Orders Last 24 Hours: My Active Orders 08/15/17 04:00 CULTURE URINE [RM] Stat - Assessment/Plan Last 24 Hours: My Active Orders 08/15/17 04:00 CULTURE URINE [RM] Stat
== END 2017-08-15 04:30 | disposition home or self-care (01) ==
LOC: JP.ED 02:21
DX: N39.0 Urinary tract infection, site not specified (principal); R31.9 Hematuria, unspecified; F17.210 Nicotine dependence, cigarettes, uncomplicated; Z79.899 Other long term (current) drug therapy; Z88.8 Allergy status to other drugs, medicaments and biological substances; Z91.013 Allergy to seafood; Z91.018 Allergy to other foods
CPT/HCPCS: 81001; 87086; 99284; A9270

== ENCOUNTER 2017-09-02 23:27 | Emergency (ER) | payer MEDICAID ==
[2017-09-03] MEDS ORDERED: Ondansetron 4 MG Tab.DIS PO ONE (00:39)
[2017-09-03] MEDS ORDERED: HYDROmorphone 1 MG/ML Syringe IM ONE (00:39)
--- NOTE | 2017-09-03 00:43 | EDM.PDOC ---
ED HPI GENERAL MEDICAL PROBLEM - General Chief Complaint: Genitourinary Problem Stated Complaint: PAIN WITH STENT Time Seen by Provider: 09/03/17 00:00 Source of Information: Reports: Patient, Family, RN Notes Reviewed History Limitations: Reports: No Limitations - History of Present Illness INITIAL COMMENTS - FREE TEXT/NARRATIVE: 42-year-old female presents emergency department day complaint of renal pain and hematuria she has a known history of kidney stones had urethral stent placed unfortunately she missed her appointment for removal is asking if it can be removed at this time in the emergency department denies any fevers states she is in a lot of pain vaginal pain Pain Score (Numeric/FACES): 10 - Related Data Allergies Allergy/AdvReac Type Severity Reaction Status Date / Time Fish Containing Products Allergy Airway Verified 09/03/17 00:08 Tightness lamotrigine [From Lamictal] Allergy Leg Cramps Verified 09/03/17 00:08 tree nut Allergy Hives Verified 09/03/17 00:08 ziprasidone [From Geodon] Allergy Airway Verified 09/03/17 00:08 Tightness msg Allergy Hives Uncoded 09/03/17 00:08 Home Meds: Home Meds Albuterol Sulfate 1 ampule INH Q4HR 07/29/17 [History] Calcium Carbonate [Tums] 500 tab PO QID PRN 07/29/17 [History] Cyanocobalamin (Vitamin B-12) [B-12] 500 mcg PO DAILY 07/29/17 [History] Ferrous Gluconate 324 mg PO DAILY 07/29/17 [History] Folic Acid 1 mg PO DAILY 07/29/17 [History] Gabapentin [Neurontin] 100 mg PO BID 07/29/17 [History] Lactulose 15 ml PO BID 07/29/17 [History] Magnesium Oxide [Magnesium] 400 mg PO BID 07/29/17 [History] Omeprazole 20 mg PO BID 07/29/17 [History] Ondansetron [Zofran ODT] 4 mg PO DAILY 07/29/17 [History] Rifaximin [Xifaxan] 200 mg PO TID 07/29/17 [History] Thiamine [Vitamin B-1] 100 mg PO DAILY 07/29/17 [History] hydrOXYzine Pamoate [Hydroxyzine Pamoate] 25 mg PO TID PRN 07/29/17 [History] levETIRAcetam [Keppra] 500 mg PO BID 07/29/17 [History] Acetaminophen/HYDROcodone [Salcha 325-5 MG] 1 - 2 tab PO Q4H PRN #10 tab [Rx] Past Medical History HEENT History: Reports: Hard of Hearing, Impaired Vision Cardiovascular History: Reports: CAD, [place], Other (See Below) Other Cardiovascular History: portal hypertension Respiratory History: Reports: Asthma Gastrointestinal History: Reports: Cirrhosis, Other (See Below) Other Gastrointestinal History: ascites, liver disease, cholecystitis, hepatic encephalopathy, stent placed in liver Genitourinary History: Reports: Renal Calculus, Other (See Below) Other Genitourinary History: urethral stent placed that extends to kidney [employer] History: Reports: Other (See Below) Other OB/BYN History: Irregular montes de oca Musculoskeletal History: Reports: Fracture Other Musculoskeletal History: colar bone Neurological History: Reports: Brain Injury, CVA, Head Trauma, Seizure, Other ( See Below) Other Neuro History: TBI ICH Skull defect Psychiatric History: Reports: Anxiety, Depression, Psych Hospitalization(s), Suicide Attempt Hematologic History: Reports: Blood Transfusion(s), Iron Deficiency, Other (See Below) Other Hematologic History: Hypokelemia, hypomagnesemia, hyponatremia Oncologic (Cancer) History: Reports: Cervix - Infectious Disease History Infectious Disease History: Reports: C-Difficile, Chicken Pox - Past Surgical History Cardiovascular Surgical History: Reports: Coronary Artery Bypass GI Surgical History: Reports: Cholecystectomy Female Surgical History: Reports: Other (See Below) Other Female Surgeries/Procedures: removal of abscess from left breast Social & Family History - Tobacco Use Smoking Status *Q: Current Every Day Smoker Years of Tobacco use: 30 Packs/Tins Daily: 0.3 Used Tobacco, but Quit: No Second Hand Smoke Exposure: Yes - Caffeine Use Caffeine Use: Reports: Coffee, Tea - Recreational Drug Use Recreational Drug Use: No ED ROS GENERAL - Review of Systems Review Of Systems: See Below Constitutional: Denies: Fever, Chills HEENT: Reports: No Symptoms Respiratory: Reports: No Symptoms Cardiovascular: Reports: Dyspnea on Exertion GI/Abdominal: Reports: Abdominal Pain : Reports: Flank Pain, Hematuria Skin: Reports: No Symptoms Neurological: Reports: No Symptoms ED EXAM, GI/ABD - Physical Exam Exam: See Below Exam Limited By: No Limitations General Appearance: Alert, WD/WN, No Apparent Distress Eyes: Bilateral: Normal Appearance Throat/Mouth: Normal Inspection, Normal Lips, Normal Teeth, Normal Gums, Normal Oropharynx, Normal Voice, No Airway Compromise Neck: Normal Inspection, Supple, Non-Tender, Full Range of Motion Respiratory/Chest: No Respiratory Distress, Lungs Clear, Normal Breath Sounds, No Accessory Muscle Use Cardiovascular: Regular Rate, Rhythm, No Murmur GI/Abdominal Exam: Normal Bowel Sounds, Soft, Non-Tender Back Exam: Normal Inspection, Full Range of Motion. No: CVA Tenderness (R), CVA Tenderness (L) Course - Vital Signs Last Recorded V/S: Last Vital Signs Temp 99.1 F 09/03/17 00:30 Pulse 85 09/03/17 00:30 Resp 16 09/03/17 00:30 BP 109/61 09/03/17 00:30 Pulse Ox 97 09/03/17 00:30 - Orders/Labs/Meds Orders: Active Orders 24 hr Category Date Time Status CULTURE URINE [RM] Urgent Lab 09/03/17 01:41 Uncollected Labs: Laboratory Tests 09/03/17 09/03/17 09/03/17 Range/Units 00:45 00:45 00:45 WBC 5.1 (4.5-11.0) K/uL RBC 3.69 (3.30-5.50) M/uL Hgb 11.3 L (12.0-15.0) g/dL Hct 34.6 L (36.0-48.0) % MCV 94 (80-98) fL MCH 31 (27-31) pg MCHC 33 (32-36) % Plt Count 129 L (150-400) K/uL Neut % (Auto) 37 (36-66) % Lymph % (Auto) 47 H (24-44) % Morton % (Auto) 10 H (2-6) % Eos % (Auto) 6 H (2-4) % Baso % (Auto) 1 (0-1) % Sodium 145 (140-148) mmol/L Potassium 3.7 (3.6-5.2) mmol/L Chloride 111 H (100-108) mmol/L Carbon Dioxide 28 (21-32) mmol/L Anion Gap 9.7 (5.0-14.0) mmol/L BUN 7 (7-18) mg/dL Creatinine 1.0 (0.6-1.0) mg/dL Est Cr Clr Drug Dosing 61.99 mL/min Estimated GFR (MDRD) > 60 (>60) Glucose 102 (74-106) mg/dL Lactic Acid 1.8 (0.4-2.0) mmol/L Calcium 8.8 (8.5-10.1) mg/dL Total Bilirubin 0.5 (0.2-1.0) mg/dL AST 37 (15-37) U/L ALT 34 (12-78) U/L Alkaline Phosphatase 171 H (46-116) U/L Total Protein 6.7 (6.4-8.2) g/dL Albumin 2.7 L (3.4-5.0) g/dL Globulin 4.0 H (2.3-3.5) g/dL Albumin/Globulin Ratio 0.7 L (1.2-2.2) Lipase 137 (73-393) U/L Urine Color Urine Appearance Urine pH (4.5-8.0) Ur Specific [place] (1.008-1.030) Urine Protein (NEGATIVE) mg/dL Urine Glucose (UA) (NEGATIVE) mg/dL Urine Ketones (NEGATIVE) mg/dL Urine Occult Blood (NEGATIVE) Urine Nitrite (NEGATIVE) Urine Bilirubin (NEGATIVE) Urine Urobilinogen (NORMAL) mg/dL Ur Leukocyte Esterase (NEGATIVE) Urine RBC (0-5) Urine WBC (0-5) Ur Epithelial Cells Amorphous Sediment Urine Bacteria Urine Mucus Urine Opiates Screen (NEGATIVE) Ur Oxycodone Screen (NEGATIVE) Urine Methadone Screen (NEGATIVE) Ur Propoxyphene Screen (NEGATIVE) Ur Barbiturates Screen (NEGATIVE) Ur Tricyclics Screen (NEGATIVE) Ur Phencyclidine Scrn (NEGATIVE) Ur Amphetamine Screen (NEGATIVE) U Methamphetamines Scrn (NEGATIVE) Urine MDMA Screen (NEGATIVE) U Benzodiazepines Scrn (NEGATIVE) U Cocaine Metab Screen (NEGATIVE) U Marijuana (THC) Screen (NEGATIVE) 09/03/17 09/03/17 Range/Units 00:48 00:48 WBC (4.5-11.0) K/uL RBC (3.30-5.50) M/uL Hgb (12.0-15.0) g/dL Hct (36.0-48.0) % MCV (80-98) fL MCH (27-31) pg MCHC (32-36) % Plt Count (150-400) K/uL Neut % (Auto) (36-66) % Lymph % (Auto) (24-44) % Morton % (Auto) (2-6) % Eos % (Auto) (2-4) % Baso % (Auto) (0-1) % Sodium (140-148) mmol/L Potassium (3.6-5.2) mmol/L Chloride (100-108) mmol/L Carbon Dioxide (21-32) mmol/L Anion Gap (5.0-14.0) mmol/L BUN (7-18) mg/dL Creatinine (0.6-1.0) mg/dL Est Cr Clr Drug Dosing mL/min Estimated GFR (MDRD) (>60) Glucose (74-106) mg/dL Lactic Acid (0.4-2.0) mmol/L Calcium (8.5-10.1) mg/dL Total Bilirubin (0.2-1.0) mg/dL AST (15-37) U/L ALT (12-78) U/L Alkaline Phosphatase (46-116) U/L Total Protein (6.4-8.2) g/dL Albumin (3.4-5.0) g/dL Globulin (2.3-3.5) g/dL Albumin/Globulin Ratio (1.2-2.2) Lipase (73-393) U/L Urine Color Red Urine Appearance Turbid Urine pH 7.0 (4.5-8.0) Ur Specific [place] 1.015 (1.008-1.030) Urine Protein 100 H (NEGATIVE) mg/dL Urine Glucose (UA) Normal (NEGATIVE) mg/dL Urine Ketones Negative (NEGATIVE) mg/dL Urine Occult Blood Large (NEGATIVE) Urine Nitrite Positive H (NEGATIVE) Urine Bilirubin Negative (NEGATIVE) Urine Urobilinogen Normal (NORMAL) mg/dL Ur Leukocyte Esterase Large (NEGATIVE) Urine RBC Semi-packed H (0-5) Urine WBC 10-20 H (0-5) Ur Epithelial Cells Few Amorphous Sediment Not seen Urine Bacteria Many Urine Mucus Not seen Urine Opiates Screen Negative (NEGATIVE) Ur Oxycodone Screen Negative (NEGATIVE) Urine Methadone Screen Negative (NEGATIVE) Ur Propoxyphene Screen Negative (NEGATIVE) Ur Barbiturates Screen Negative (NEGATIVE) Ur Tricyclics Screen Negative (NEGATIVE) Ur Phencyclidine Scrn Negative (NEGATIVE) Ur Amphetamine Screen Negative (NEGATIVE) U Methamphetamines Scrn Negative (NEGATIVE) Urine MDMA Screen Negative (NEGATIVE) U Benzodiazepines Scrn Negative (NEGATIVE) U Cocaine Metab Screen Negative (NEGATIVE) U Marijuana (THC) Screen Negative (NEGATIVE) Meds: Medications Discontinued Medications Generic Name Dose Route Start Last Admin Trade Name Freq PRN Reason Stop Dose Admin Hydromorphone HCl 1 mg 09/03/17 00:39 09/03/17 00:53 Dilaudid IM 09/03/17 00:40 1 mg ONETIME ONE Administration Ondansetron HCl 4 mg 09/03/17 00:39 09/03/17 00:53 Zofran Odt PO 09/03/17 00:40 4 mg ONETIME ONE Administration Departure - Departure Time of Disposition: 01:48 Disposition: Home, Self-Care 01 Condition: Fair Clinical Impression: UTI, Urinary tract infectious disease - Discharge Information Referrals: Vicky Ramirez MD [Primary Care Provider] - Forms: ED Department Discharge Additional Instructions: Take full course of antibiotics, use hydrocodone as needed for pain control, Please followup with your primary care provider in 3-5 days if not better, please call return to the emergency department with worsening of symptoms. - My Orders Last 24 Hours: My Active Orders 09/03/17 01:41 CULTURE URINE [RM] Urgent - Assessment/Plan Last 24 Hours: My Active Orders 09/03/17 01:41 CULTURE URINE [RM] Urgent Plan: Assessment Acuity = acute Site and laterality = pyelonephritis complicated patient with known history urethral stent Etiology = probable bacterial cause Manifestations = back pain Location of injury = Home Lab values = hemoglobin low 11.3 consistent with normochromic anemia albumin low at 2.1 consistent with hypoalbuminemia urinalysis reveals 100 proteins consistent proteinuria positive for nitrates rbc's semi packed consistent with hematuria 10-20 WBCs consistent with pyuria cultures pending Plan I did review lab work results with her she received some relief from the Zofran and Dilaudid provided in emergency department she was recently on Bactrim at the end of July for urinary tract infection however culture grew only normal alcon. She'll be placed on Keflex 500 mg 4 times a day 7 days, hydrocodone 5/325 one tab by mouth 3 times a day when necessary for pain control follow up with primary care in 3-5 days for reevaluation This note was dictated using [employer] voice recognition software please call with any questions on syntax or linette.
== END 2017-09-03 02:04 | disposition home or self-care (01) ==
LOC: JP.ED 23:27
DX: N12 Tubulo-interstitial nephritis, not specified as acute or chronic (principal); N39.0 Urinary tract infection, site not specified; R31.9 Hematuria, unspecified; I25.10 Atherosclerotic heart disease of native coronary artery without angina pectoris; F32.9 Major depressive disorder, single episode, unspecified; F17.210 Nicotine dependence, cigarettes, uncomplicated; Z79.899 Other long term (current) drug therapy; Z91.013 Allergy to seafood; Z88.8 Allergy status to other drugs, medicaments and biological substances; Z91.048 Other nonmedicinal substance allergy status; Z96.0 Presence of urogenital implants
CPT/HCPCS: 36415; 80053; 80305; 81001; 83605; 83690; 85025; 87086; 87088; 87186; 96372; 99283; A9270; J1170; 99284

== ENCOUNTER 2017-09-19 18:07 | Emergency (ER) | payer MEDICAID ==
[2017-09-19] MEDS ORDERED: levETIRAcetam 250 MG Tab PO ONE (19:25)
[2017-09-19] MEDS ORDERED: HYDROmorphone 1 MG/ML Syringe IVPUSH ONE (19:26)
[2017-09-19] MEDS ORDERED: Ondansetron 4 MG/2 ML SDV IVPUSH ONE (19:26)
[2017-09-19] MEDS ORDERED: Sodium Chloride 0.9% 1,000 ML IV SCH (19:30)
--- NOTE | 2017-09-19 19:55 | EDM.PDOC ---
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 She fell outside of her home, hit the side of her head and pain in low back. Today at [employer], again felt weak, confused and dizzy, felt like her leg was weak, fell again. denies any complete syncope hx of TBI, with partial removal of the right skull. seizure disorder. reports has not taken Keppra for 6 months. hx of CVA, CAD, Renal stones with stent. Onset Date: 09/18/17 Duration: Day(s): Location: Reports: Head, Back Quality: Reports: Ache (headache), Sharp (back), Throbbing (back) Severity: Moderate Improves with: Reports: Rest Worsens with: Reports: Movement Context: Reports: Other (fall daily x 2 without LOC) Associated Symptoms: Reports: Headaches, Weakness Right Lower Back Pain Score (Numeric/FACES): 10 - Related Data Allergies Allergy/AdvReac Type Severity Reaction Status Date / Time Fish Containing Products Allergy Airway Verified 09/03/17 00:08 Tightness lamotrigine [From Lamictal] Allergy Leg Cramps Verified 09/03/17 00:08 tree nut Allergy Hives Verified 09/03/17 00:08 ziprasidone [From Geodon] Allergy Airway Verified 09/03/17 00:08 Tightness msg Allergy Hives Uncoded 09/03/17 00:08 Home Meds: Home Meds Albuterol Sulfate 1 ampule INH Q4HR 07/29/17 [History] Calcium Carbonate [Tums] 500 tab PO QID PRN 07/29/17 [History] Cyanocobalamin (Vitamin B-12) [B-12] 500 mcg PO DAILY 07/29/17 [History] Ferrous Gluconate 324 mg PO DAILY 07/29/17 [History] Folic Acid 1 mg PO DAILY 07/29/17 [History] Gabapentin [Neurontin] 100 mg PO BID 07/29/17 [History] Lactulose 15 ml PO BID 07/29/17 [History] Magnesium Oxide [Magnesium] 400 mg PO BID 07/29/17 [History] Omeprazole 20 mg PO BID 07/29/17 [History] Ondansetron [Zofran ODT] 4 mg PO DAILY 07/29/17 [History] Thiamine [Vitamin B-1] 100 mg PO DAILY 07/29/17 [History] hydrOXYzine Pamoate [Hydroxyzine Pamoate] 25 mg PO TID PRN 07/29/17 [History] levETIRAcetam [Keppra] 500 mg PO BID 07/29/17 [History] Ciprofloxacin [Ciprofloxacin HCl] 500 mg PO BID 09/19/17 [History] Past Medical History HEENT History: Reports: Hard of Hearing, Impaired Vision Cardiovascular History: Reports: CAD, [place], Other (See Below) Other Cardiovascular History: portal hypertension Respiratory History: Reports: Asthma Gastrointestinal History: Reports: Cirrhosis, Other (See Below) Other Gastrointestinal History: ascites, liver disease, cholecystitis, hepatic encephalopathy, stent placed in liver Genitourinary History: Reports: Renal Calculus, Other (See Below) Other Genitourinary History: urethral stent placed that extends to kidney TONGSMAN History: Reports: Other (See Below) Other OB/BYN History: Irregular montes de oca Musculoskeletal History: Reports: Fracture Other Musculoskeletal History: colar bone Neurological History: Reports: Brain Injury, CVA, Head Trauma, Seizure, Other ( See Below) Other Neuro History: TBI ICH Skull defect Psychiatric History: Reports: Anxiety, Depression, Psych Hospitalization(s), Suicide Attempt Hematologic History: Reports: Blood Transfusion(s), Iron Deficiency, Other (See Below) Other Hematologic History: Hypokelemia, hypomagnesemia, hyponatremia Oncologic (Cancer) History: Reports: Cervix - Infectious Disease History Infectious Disease History: Reports: C-Difficile, Chicken Pox - Past Surgical History Cardiovascular Surgical History: Reports: Coronary Artery Bypass GI Surgical History: Reports: Cholecystectomy Female Surgical History: Reports: Other (See Below) Other Female Surgeries/Procedures: removal of abscess from left breast Social & Family History - Tobacco Use Smoking Status *Q: Current Every Day Smoker Years of Tobacco use: 32 Packs/Tins Daily: 0.1 Used Tobacco, but Quit: No Second Hand Smoke Exposure: Yes - Caffeine Use Caffeine Use: Reports: Coffee - Recreational Drug Use Recreational Drug Use: No - Living Situation & Occupation Living situation: Reports: Single Occupation: Disabled (lives in Apartment, Sister and Uncle live in same building.) ED ROS GENERAL - Review of Systems Review Of Systems: See Below Constitutional: Reports: Weakness, Other (headache) HEENT: Reports: Nosebleed (yesterday, none today), Vertigo Respiratory: Reports: No Symptoms Cardiovascular: Reports: No Symptoms Endocrine: Reports: No Symptoms GI/Abdominal: Reports: No Symptoms : Reports: Other (chronic uti, renal stent in place, hx of renal stones) Musculoskeletal: Reports: Back Pain (lumbar pain since fall. chronic left leg weakness secondary to CVA.), Leg Pain (bialteral), Muscle Pain (bilateral) Skin: Reports: No Symptoms Neurological: Reports: Confusion, Dizziness, Headache, Pre-Existing Deficit (hx of CVA, partial skull removal.) Psychiatric: Reports: No Symptoms Hematologic/Lymphatic: Reports: No Symptoms Immunologic: Reports: No Symptoms ED EXAM, GENERAL - Physical Exam Exam: See Below Exam Limited By: No Limitations General Appearance: Alert, WD/WN, Mild Distress (talkative, when examined cries out in pain.), Other (abnormal shape of head, 1/2 of the left side of head is absent, skull sunken/mis-shapen) Eye Exam: Bilateral Eye: EOMI, Normal Inspection, PERRL Ears: Normal External Exam, Other (excess ear wax noted) Ear Exam: Bilateral Ear: TM Dull Nose: Normal Inspection, Normal Mucosa, No Blood Throat/Mouth: Normal Inspection, Normal Lips, Normal Teeth Head: Other (abnormal shape of skull due to removal of left side skull.) Neck: Normal Inspection, Supple, Non-Tender, Full Range of Motion Respiratory/Chest: No Respiratory Distress, Lungs Clear, Normal Breath Sounds, No Accessory Muscle Use, Chest Non-Tender Cardiovascular: Normal Peripheral Pulses, Regular Rate, Rhythm, No Edema, No Murmur Peripheral Pulses: 2+: Dorsalis Pedis (L), Dorsalis Pedis (R) GI/Abdominal: Normal Bowel Sounds, Soft, Tender (low pelvis, chronic ) (Female) Exam: Deferred Rectal (Female) Exam: Deferred Back Exam: Normal Inspection, Muscle Spasm (lumbar spine) Extremities: Normal Inspection, Other (left leg with pre-exisiting condition. ) Neurological: Sensory/Motor Deficit (left leg) Psychiatric: Anxious, Tearful Skin Exam: Warm, Dry, Intact, Normal Color, No Rash Lymphatic: No Adenopathy Course - Vital Signs Last Recorded V/S: Last Vital Signs Temp 37.0 C 09/19/17 18:52 Pulse 78 09/19/17 18:52 Resp 16 09/19/17 18:52 BP 145/64 H 09/19/17 18:52 Pulse Ox 98 09/19/17 18:52 - Orders/Labs/Meds Orders: Active Orders 24 hr Category Date Time Status Head wo Cont [CT] Stat Exams 09/19/17 19:26 Ordered Lumbar Spine 2 or 3V [CR] Stat Exams 09/19/17 19:28 Ordered Sodium Chloride 0.9% [Normal Saline] 1,000 ml Med 09/19/17 19:30 Active IV ASDIRECTED Medication Orders Sodium Chloride (Normal Saline) 1,000 mls @ 999 mls/hr IV ASDIRECTED JOSE Last Admin: 09/19/17 20:22 Dose: 999 mls/hr Labs: Laboratory Tests 09/19/17 09/19/17 Range/Units 19:36 19:36 Urine Color Yellow Urine Appearance Cloudy Urine pH 7.0 (4.5-8.0) Ur Specific [place] 1.010 (1.008-1.030) Urine Protein Negative (NEGATIVE) mg/dL Urine Glucose (UA) Normal (NEGATIVE) mg/dL Urine Ketones Negative (NEGATIVE) mg/dL Urine Occult Blood Large (NEGATIVE) Urine Nitrite Negative (NEGATIVE) Urine Bilirubin Negative (NEGATIVE) Urine Urobilinogen Normal (NORMAL) mg/dL Ur Leukocyte Esterase Large (NEGATIVE) Urine RBC 5-10 H (0-5) Urine WBC 10-20 H (0-5) Ur Epithelial Cells Rare Amorphous Sediment Not seen Urine Bacteria Rare Urine Mucus Not seen Urine Opiates Screen Negative (NEGATIVE) Ur Oxycodone Screen Negative (NEGATIVE) Urine Methadone Screen Negative (NEGATIVE) Ur Propoxyphene Screen Negative (NEGATIVE) Ur Barbiturates Screen Negative (NEGATIVE) Ur Tricyclics Screen Negative (NEGATIVE) Ur Phencyclidine Scrn Negative (NEGATIVE) Ur Amphetamine Screen Negative (NEGATIVE) U Methamphetamines Scrn Negative (NEGATIVE) Urine MDMA Screen Negative (NEGATIVE) U Benzodiazepines Scrn Positive H (NEGATIVE) U Cocaine Metab Screen Negative (NEGATIVE) U Marijuana (THC) Screen Negative (NEGATIVE) Meds: Medications Generic Name Dose Route Start Last Admin Trade Name Juan PRN Reason Stop Dose Admin Sodium Chloride 1,000 mls @ 999 mls/hr 09/19/17 19:30 09/19/17 20:22 Normal Saline IV 999 mls/hr ASDIRECTED JOSE Administration Discontinued Medications Generic Name Dose Route Start Last Admin Trade Name Juan PRN Reason Stop Dose Admin Hydromorphone HCl 1 mg 09/19/17 19:26 09/19/17 20:26 Dilaudid IVPUSH 09/19/17 19:27 1 mg ONETIME ONE Administration Levetiracetam 500 mg 09/19/17 19:25 09/19/17 20:29 Keppra PO 09/19/17 19:26 500 mg BID ONE Administration Ondansetron HCl 4 mg 09/19/17 19:26 09/19/17 20:22 Zofran IVPUSH 09/19/17 19:27 4 mg ONETIME ONE Administration - Re-Assessments/Exams Free Text/Narrative Re-Assessment/Exam: 09/19/17 20:18 labs; urine micro, urine drug imaging; CT of Head without contrast to rule out any acute injury to head lumbar spine meds; Dilaudid 1 mg IV, Zofran 4mg IV, Keppra 500mg po single dose, reports last dose 6 months ago. IV Fluids; Normal Saline give one liter over one hour will await results of lab testing. 20:21 call from Imaging -Head CT when compared with Jun 2017 scan does not show any new intra cranial pathology. impression; prior right craniectomy. stable right occipital and right parasagittal parietal encephalomalacia. 2. no acute intra cranial pathology or bleed. 09/19/17 20:23 urine micro; large leukocytes and blood, WBC 10-20, Nitrate negative xray; lumbar spine, no acute bony injury noted on wet read. 09/19/17 20:29 -reviewed with patient, will plan to discharge to home. given script for Theresa Liu Keppra, advise to follow up in Primary Care for recheck in 3-5 days, sooner if not improved. Departure - Departure Time of Disposition: 20:43 Disposition: Home, Self-Care 01 Condition: Good Clinical Impression: Strain of fascia of lower back, Fall from standing, Seizure disorder - Discharge Information Referrals: Vicky Ramirez MD [Primary Care Provider] - Forms: ED Department Discharge Care Plan Goals: fall low back pain -Head CT withoout contrast, no acute intracranial injury or bleed. -xray of lumbar spine; no acute findings -Deary one every 4 to 6 hours as needed for pain -Motrin 600mg one every 6 to 8 hours as needed for pain -rest, avoid any prolonged standing, walking, bending or lifting follow up with Primary Care for recheck in 3 to 5 days Seizure disorder -restart Keppra 500mg po bid. given one dose in ER, will need next dose tomorrow. -follow-up with Primary Care Provider. - Problem List & Annotations (1) Fall from standing SNOMED Code(s): 5664790 Code(s): W19.XXXA - UNSPECIFIED FALL, INITIAL ENCOUNTER Status: Acute Priority: High Current Visit: Yes Qualifiers: Encounter type: initial encounter Qualified Code(s): W19.XXXA - Unspecified fall, initial encounter (2) Seizure disorder SNOMED Code(s): 452254603 Code(s): G40.909 - EPILEPSY, UNSP, NOT INTRACTABLE, WITHOUT STATUS EPILEPTICUS Status: Acute Priority: High Current Visit: Yes (3) Strain of fascia of lower back SNOMED Code(s): 521117304 Code(s): S39.012A - STRAIN OF MUSCLE, FASCIA AND TENDON OF LOWER BACK, INIT Status: Acute Priority: High Current Visit: Yes - Problem List Review Problem List Initiated/Reviewed/Updated: Yes - My Orders Last 24 Hours: My Active Orders 09/19/17 19:26 Head wo Cont [CT] Stat 09/19/17 19:28 Lumbar Spine 2 or 3V [CR] Stat 09/19/17 19:30 Sodium Chloride 0.9% [Normal Saline] 1,000 ml IV ASDIRECTED - Assessment/Plan Last 24 Hours: My Active Orders 09/19/17 19:26 Head wo Cont [CT] Stat 09/19/17 19:28 Lumbar Spine 2 or 3V [CR] Stat 09/19/17 19:30 Sodium Chloride 0.9% [Normal Saline] 1,000 ml IV ASDIRECTED Plan: fall low back pain -Head CT withoout contrast, no acute intracranial injury or bleed. -xray of lumbar spine; no acute findings -Deary one every 4 to 6 hours as needed for pain -Motrin 600mg one every 6 to 8 hours as needed for pain -rest, avoid any prolonged standing, walking, bending or lifting follow up with Primary Care for recheck in 3 to 5 days Seizure disorder -restart Keppra 500mg po bid. given one dose in ER, will need next dose tomorrow. -follow-up with Primary Care Provider.
--- NOTE | 2017-09-20 09:38 | CR ---
Lumbar Spine 2 or 3V INDICATION: fall, pain at low back radiates to right leg COMPARISON: None FINDINGS: 3 views. 5 lumbar-type vertebra. No compression deformities or subluxations. Mild disc space narrowing L4-5 and L5-S1. Biliary stent right upper quadrant. Postoperative changes upper abdomen. Left ureteral stent.
== END 2017-09-19 21:36 | disposition home or self-care (01) ==
LOC: JP.ED 18:07
DX: S39.012A Strain of muscle, fascia and tendon of lower back, initial encounter (principal); G40.909 Epilepsy, unspecified, not intractable, without status epilepticus; R53.1 Weakness; F17.210 Nicotine dependence, cigarettes, uncomplicated; Z91.013 Allergy to seafood; Z88.8 Allergy status to other drugs, medicaments and biological substances; Z79.899 Other long term (current) drug therapy; W19.XXXA Unspecified fall, initial encounter
CPT/HCPCS: 70450; 72100; 80305; 81001; 96361; 96374; 96375; 99284; A9270; J1170; J2405; J7040; J7030

== ENCOUNTER 2017-10-04 18:02 | Emergency (ER) | payer MEDICAID ==
[2017-10-04] MEDS ORDERED: HYDROmorphone 1 MG/ML Syringe IM ONE (18:29)
--- NOTE | 2017-10-04 18:33 | EDM.PDOC ---
ED HPI GENERAL MEDICAL PROBLEM - General Chief Complaint: Lower Extremity Injury/Pain Stated Complaint: MEDICAL Time Seen by Provider: 10/04/17 18:26 Source of Information: Reports: Patient, EMS, RN Notes Reviewed History Limitations: Reports: No Limitations - History of Present Illness INITIAL COMMENTS - FREE TEXT/NARRATIVE: 42-year-old female presents emergency department today via EMS services for sudden onset of right leg pain she states the pain started yesterday has progressively gotten worse she is unable to bear weight the pain is so intense she has tried ibuprofen without any relief pain is predominantly in her calf does have a history of a fall 3 weeks ago with a back strain was evaluated in the emergency department at that time Right Leg Pain Score (Numeric/FACES): 10 - Related Data Allergies Allergy/AdvReac Type Severity Reaction Status Date / Time Fish Containing Products Allergy Airway Verified 09/03/17 00:08 Tightness lamotrigine [From Lamictal] Allergy Leg Cramps Verified 09/03/17 00:08 tree nut Allergy Hives Verified 09/03/17 00:08 ziprasidone [From Geodon] Allergy Airway Verified 09/03/17 00:08 Tightness msg Allergy Hives Uncoded 09/03/17 00:08 Home Meds: Home Meds Albuterol Sulfate 1 ampule INH Q4HR 07/29/17 [History] Calcium Carbonate [Tums] 500 tab PO QID PRN 07/29/17 [History] Cyanocobalamin (Vitamin B-12) [B-12] 500 mcg PO DAILY 07/29/17 [History] Ferrous Gluconate 324 mg PO DAILY 07/29/17 [History] Folic Acid 1 mg PO DAILY 07/29/17 [History] Gabapentin [Neurontin] 100 mg PO BID 07/29/17 [History] Lactulose 15 ml PO BID 07/29/17 [History] Magnesium Oxide [Magnesium] 400 mg PO BID 07/29/17 [History] Omeprazole 20 mg PO BID 07/29/17 [History] Ondansetron [Zofran ODT] 4 mg PO DAILY 07/29/17 [History] Thiamine [Vitamin B-1] 100 mg PO DAILY 07/29/17 [History] hydrOXYzine Pamoate [Hydroxyzine Pamoate] 25 mg PO TID PRN 07/29/17 [History] levETIRAcetam [Keppra] 500 mg PO BID 07/29/17 [History] Ciprofloxacin [Ciprofloxacin HCl] 500 mg PO BID 09/19/17 [History] Past Medical History HEENT History: Reports: Hard of Hearing, Impaired Vision Cardiovascular History: Reports: CAD, [place], Other (See Below) Other Cardiovascular History: portal hypertension Respiratory History: Reports: Asthma Gastrointestinal History: Reports: Cirrhosis, Other (See Below) Other Gastrointestinal History: ascites, liver disease, cholecystitis, hepatic encephalopathy, stent placed in liver Genitourinary History: Reports: Renal Calculus, Other (See Below) Other Genitourinary History: urethral stent placed that extends to kidney 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: Other (See Below) Other OB/BYN History: Irregular montes [place] oca Musculoskeletal History: Reports: Fracture Other Musculoskeletal History: colar bone Neurological History: Reports: Brain Injury, CVA, Head Trauma, Seizure, Other ( See Below) Other Neuro History: TBI ICH Skull defect Psychiatric History: Reports: Anxiety, Depression, Psych Hospitalization(s), Suicide Attempt Hematologic History: Reports: Blood Transfusion(s), Iron Deficiency, Other (See Below) Other Hematologic History: Hypokelemia, hypomagnesemia, hyponatremia Oncologic (Cancer) History: Reports: Cervix - Infectious Disease History Infectious Disease History: Reports: C-Difficile, Chicken Pox - Past Surgical History Cardiovascular Surgical History: Reports: Coronary Artery Bypass GI Surgical History: Reports: Cholecystectomy Female Surgical History: Reports: Other (See Below) Other Female Surgeries/Procedures: removal of abscess from left breast Social & Family History - Tobacco Use Smoking Status *Q: Light Tobacco Smoker Years of Tobacco use: 22 Packs/Tins Daily: 0.1 Used Tobacco, but Quit: No Second Hand Smoke Exposure: Yes - Caffeine Use Caffeine Use: Reports: Coffee - Recreational Drug Use Recreational Drug Use: No - Living Situation & Occupation Living situation: Reports: Single Occupation: Disabled (lives in Apartment, Sister and Uncle live in same building.) Review of Systems - Review of Systems Review Of Systems: See Below Musculoskeletal: Reports: Muscle Pain ED EXAM, GENERAL - Physical Exam Exam: See Below Free Text/Narrative:: Examination of the right lower extremity I don't appreciate any erythema there is no edema toes are of good color capillary refill is less than 2 seconds pedal pulses +2 there is no tenderness at the ankle no tenderness at the knee no tenderness at the hip she is tender to palpation mid calf area however calf muscle itself is soft no edema noted Exam Limited By: No Limitations General Appearance: Alert, Moderate Distress Respiratory/Chest: No Respiratory Distress Course - Vital Signs Last Recorded V/S: Last Vital Signs Temp 98.1 F 10/04/17 18:08 Pulse 92 10/04/17 18:08 Resp 16 10/04/17 18:08 BP 154/95 H 10/04/17 18:32 Pulse Ox 99 10/04/17 18:32 - Orders/Labs/Meds Orders: Active Orders 24 hr Category Date Time Status Tibia Fibula Rt [CR] Stat Exams 10/04/17 18:30 Taken Meds: Medications Discontinued Medications Generic Name Dose Route Start Last Admin Trade Name Juan PRN Reason Stop Dose Admin Hydromorphone HCl 1 mg 10/04/17 18:29 10/04/17 18:43 Dilaudid IM 10/04/17 18:30 1 mg ONETIME ONE Administration Departure - Departure Time of Disposition: 18:58 Disposition: Home, Self-Care 01 Condition: Good Clinical Impression: Left leg pain, Left leg pain - Discharge Information Referrals: PCP,None [Primary Care Provider] - Forms: ED Department Discharge Additional Instructions: Continue to use ibuprofen for baseline pain control, use hydrocodone for breakthrough pain, Please followup with your primary care provider in 3-5 days if not better, please call return to the emergency department with worsening of symptoms. - My Orders Last 24 Hours: My Active Orders 10/04/17 18:30 Tibia Fibula Rt [CR] Stat - Assessment/Plan Last 24 Hours: My Active Orders 10/04/17 18:30 Tibia Fibula Rt [CR] Stat Plan: Assessment Acuity = acute Site and laterality = right leg pain Etiology = unclear etiology Manifestations = none Location of injury = Home Lab values = right tib-fib x-ray I did review films myself I cannot appreciate any acute process, the official read from radiology is pending Plan She received good relief from the injection of Dilaudid, will be discharged home with hydrocodone 5/325 one tab by mouth 3 times a day when necessary total #10 tablets there is a possibility this pain may be related to the back injury she had 3 weeks ago vascular follow-up with her primary care for further evaluation next 3-5 days This note was dictated using [employer]hub voice recognition software please call with any questions on syntax or linette.
--- NOTE | 2017-10-05 08:53 | CR ---
Right leg The tibia and fibula demonstrate normal alignment. There is no evidence of fracture. The soft tissues are unremarkable. Impression: 1. No acute findings.
== END 2017-10-04 19:31 | disposition home or self-care (01) ==
LOC: JP.ED 18:02
DX: M79.604 Pain in right leg (principal); J45.909 Unspecified asthma, uncomplicated; F17.210 Nicotine dependence, cigarettes, uncomplicated; Z79.899 Other long term (current) drug therapy; Z91.013 Allergy to seafood; Z88.8 Allergy status to other drugs, medicaments and biological substances
CPT/HCPCS: 73590; 96372; 99284; J1170; 99283

== ENCOUNTER 2017-10-07 20:06 | Emergency (ER) | payer MEDICAID ==
[2017-10-07] MEDS ORDERED: Ketorolac 60 MG/2 ML SDV IM ONE (20:15)
--- NOTE | 2017-10-07 20:17 | EDM.PDOC ---
ED HPI GENERAL MEDICAL PROBLEM - General Stated Complaint: FELL AND HIT HEAD Time Seen by Provider: 10/07/17 20:10 Source of Information: Reports: Patient, RN Notes Reviewed History Limitations: Reports: No Limitations - History of Present Illness INITIAL COMMENTS - FREE TEXT/NARRATIVE: 42-year-old female presents emergency department today via EMS services for complaint of right leg pain, she was in the emergency department 2 days prior complaining of right leg pain lower extremity however this time pain is presenting upper right leg hip area she did have a fall a couple weeks prior she states she was going to the bathroom stood up suddenly onset of pain unable to bear weight - Related Data Allergies Allergy/AdvReac Type Severity Reaction Status Date / Time Fish Containing Products Allergy Airway Verified 10/07/17 20:15 Tightness lamotrigine [From Lamictal] Allergy Leg Cramps Verified 10/07/17 20:15 tree nut Allergy Hives Verified 10/07/17 20:15 ziprasidone [From Geodon] Allergy Airway Verified 10/07/17 20:15 Tightness msg Allergy Hives Uncoded 10/07/17 20:15 Home Meds: Home Meds Albuterol Sulfate 1 ampule INH Q4HR 07/29/17 [History] Calcium Carbonate [Tums] 500 tab PO QID PRN 07/29/17 [History] Cyanocobalamin (Vitamin B-12) [B-12] 500 mcg PO DAILY 07/29/17 [History] Ferrous Gluconate 324 mg PO DAILY 07/29/17 [History] Folic Acid 1 mg PO DAILY 07/29/17 [History] Gabapentin [Neurontin] 100 mg PO BID 07/29/17 [History] Lactulose 15 ml PO BID 07/29/17 [History] Magnesium Oxide [Magnesium] 400 mg PO BID 07/29/17 [History] Omeprazole 20 mg PO BID 07/29/17 [History] Ondansetron [Zofran ODT] 4 mg PO DAILY 07/29/17 [History] Thiamine [Vitamin B-1] 100 mg PO DAILY 07/29/17 [History] hydrOXYzine Pamoate [Hydroxyzine Pamoate] 25 mg PO TID PRN 07/29/17 [History] levETIRAcetam [Keppra] 500 mg PO BID 07/29/17 [History] Ciprofloxacin [Ciprofloxacin HCl] 500 mg PO BID 09/19/17 [History] Past Medical History HEENT History: Reports: Hard of Hearing, Impaired Vision Cardiovascular History: Reports: CAD, [place], Other (See Below) Other Cardiovascular History: portal hypertension Respiratory History: Reports: Asthma Gastrointestinal History: Reports: Cirrhosis, Other (See Below) Other Gastrointestinal History: ascites, liver disease, cholecystitis, hepatic encephalopathy, stent placed in liver Genitourinary History: Reports: Renal Calculus, Other (See Below) Other Genitourinary History: urethral stent placed that extends to kidney 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: Other (See Below) Other OB/BYN History: Irregular montes [place] oca Musculoskeletal History: Reports: Fracture Other Musculoskeletal History: colar bone Neurological History: Reports: Brain Injury, CVA, Head Trauma, Seizure, Other ( See Below) Other Neuro History: TBI ICH Skull defect Psychiatric History: Reports: Anxiety, Depression, Psych Hospitalization(s), Suicide Attempt Hematologic History: Reports: Blood Transfusion(s), Iron Deficiency, Other (See Below) Other Hematologic History: Hypokelemia, hypomagnesemia, hyponatremia Oncologic (Cancer) History: Reports: Cervix - Infectious Disease History Infectious Disease History: Reports: C-Difficile, Chicken Pox - Past Surgical History Cardiovascular Surgical History: Reports: Coronary Artery Bypass GI Surgical History: Reports: Cholecystectomy Female Surgical History: Reports: Other (See Below) Other Female Surgeries/Procedures: removal of abscess from left breast Social & Family History - Tobacco Use Smoking Status *Q: Light Tobacco Smoker Years of Tobacco use: 22 Packs/Tins Daily: 0.1 Used Tobacco, but Quit: No Second Hand Smoke Exposure: Yes - Caffeine Use Caffeine Use: Reports: Coffee - Recreational Drug Use Recreational Drug Use: No - Living Situation & Occupation Living situation: Reports: Single Occupation: Disabled (lives in Apartment, Sister and Uncle live in same building.) Review of Systems - Review of Systems Review Of Systems: See Below Musculoskeletal: Reports: Leg Pain ED EXAM, GENERAL - Physical Exam Exam: See Below Free Text/Narrative:: Examination of the right leg on appreciate any erythema there is no edema there is no internal and external rotation noted she is tender to the touch at the ankle tender to the touch at the knee tender to the touch the hip tender with any movement of the foot difficult to do an exam, pedal pulse is +2 Exam Limited By: No Limitations General Appearance: Moderate Distress Course - Vital Signs Last Recorded V/S: Last Vital Signs Temp 98.2 F 10/07/17 20:20 Pulse 84 10/07/17 20:20 Resp 14 10/07/17 20:20 BP 139/86 10/07/17 20:20 Pulse Ox 97 10/07/17 20:20 - Orders/Labs/Meds Orders: Active Orders 24 hr Category Date Time Status Hip Min 1V w Pelvis Rt [CR] Stat Exams 10/07/17 20:15 Taken Meds: Medications Discontinued Medications Generic Name Dose Route Start Last Admin Trade Name Juan PRN Reason Stop Dose Admin Ketorolac Tromethamine 60 mg 10/07/17 20:15 10/07/17 20:24 Toradol IM 10/07/17 20:16 60 mg ONETIME ONE Administration Departure - Departure Time of Disposition: 21:06 Disposition: Home, Self-Care 01 Condition: Fair Clinical Impression: Right leg pain - Discharge Information Referrals: PCP,None [Primary Care Provider] - Additional Instructions: Use ibuprofen for baseline pain control, use Percocet for breakthrough pain keep your follow-up appointment with physical therapy tomorrow, - My Orders Last 24 Hours: My Active Orders 10/07/17 20:15 Hip Min 1V w Pelvis Rt [CR] Stat - Assessment/Plan Last 24 Hours: My Active Orders 10/07/17 20:15 Hip Min 1V w Pelvis Rt [CR] Stat Plan: Assessment Acuity = acute on chronic Site and laterality = right leg pain Etiology = unclear etiology Manifestations = none Location of injury = Home Lab values = hip x-ray I did review films myself I cannot appreciate any acute process, the official read from radiology is pending Plan She had good relief with Toradol injection, prescription written for Percocet 5/ 325 one tab by mouth 3 times a day when necessary total #10 she does have appointment with physical therapy tomorrow This note was dictated using [employer] voice recognition software please call with any questions on syntax or linette.
--- NOTE | 2017-10-08 09:02 | CR ---
Hip Min 1V w Pelvis Rt INDICATION: pain FINDINGS: Negative pelvis and right hip. No acute fracture.
== END 2017-10-07 21:31 | disposition home or self-care (01) ==
LOC: JP.ED 20:06
DX: M79.604 Pain in right leg (principal); F17.210 Nicotine dependence, cigarettes, uncomplicated; Z91.013 Allergy to seafood; Z88.8 Allergy status to other drugs, medicaments and biological substances; Z79.899 Other long term (current) drug therapy
CPT/HCPCS: 73501; 96372; 99284; J1885; 99283

== ENCOUNTER 2017-10-14 19:48 | Emergency (ER) | payer MEDICAID ==
[2017-10-14] MEDS ORDERED: Ketorolac 60 MG/2 ML SDV IM ONE (21:15)
--- NOTE | 2017-10-14 21:18 | EDM.PDOC ---
ED HPI GENERAL MEDICAL PROBLEM - General Chief Complaint: Lower Extremity Injury/Pain Stated Complaint: MEDICAL VIA [facility] Time Seen by Provider: 10/14/17 21:18 Source of Information: Reports: Patient History Limitations: Reports: No Limitations - History of Present Illness INITIAL COMMENTS - FREE TEXT/NARRATIVE: pt arrived with severe pain in the rt leg. She has come in by ambulance twice with this pain. Dr officer xrayed her lumbar spine and leg and did not find the etiology. s Onset: Gradual Duration: Hour(s): Location: Reports: Lower Extremity, Right Associated Symptoms: Reports: Other (Pain in the rt leg. ) Treatments AUDIO NARRATOR: Reports: NSAIDS Right lower leg Pain Score (Numeric/FACES): 10 - Related Data Allergies Allergy/AdvReac Type Severity Reaction Status Date / Time Fish Containing Products Allergy Airway Verified 10/14/17 19:57 Tightness lamotrigine [From Lamictal] Allergy Leg Cramps Verified 10/14/17 19:57 tree nut Allergy Hives Verified 10/14/17 19:57 ziprasidone [From Geodon] Allergy Airway Verified 10/14/17 19:57 Tightness msg Allergy Hives Uncoded 10/14/17 19:57 Home Meds: Home Meds Albuterol Sulfate 1 ampule INH Q4HR 07/29/17 [History] Calcium Carbonate [Tums] 500 tab PO QID PRN 07/29/17 [History] Cyanocobalamin (Vitamin B-12) [B-12] 500 mcg PO DAILY 07/29/17 [History] Ferrous Gluconate 324 mg PO DAILY 07/29/17 [History] Folic Acid 1 mg PO DAILY 07/29/17 [History] Gabapentin [Neurontin] 100 mg PO BID 07/29/17 [History] Lactulose 15 ml PO BID 07/29/17 [History] Magnesium Oxide [Magnesium] 400 mg PO BID 07/29/17 [History] Ondansetron [Zofran ODT] 4 mg PO DAILY 07/29/17 [History] Thiamine [Vitamin B-1] 100 mg PO DAILY 07/29/17 [History] hydrOXYzine Pamoate [Hydroxyzine Pamoate] 25 mg PO TID PRN 07/29/17 [History] levETIRAcetam [Keppra] 500 mg PO BID 07/29/17 [History] Ciprofloxacin [Ciprofloxacin HCl] 500 mg PO BID 09/19/17 [History] Past Medical History HEENT History: Reports: Hard of Hearing, Impaired Vision Cardiovascular History: Reports: CAD, [place], Other (See Below) Other Cardiovascular History: portal hypertension Respiratory History: Reports: Asthma Gastrointestinal History: Reports: Cirrhosis, Other (See Below) Other Gastrointestinal History: ascites, liver disease, cholecystitis, hepatic encephalopathy, stent placed in liver Genitourinary History: Reports: Renal Calculus, Other (See Below) Other Genitourinary History: urethral stent placed that extends to kidney 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 (See Below) Other OB/BYN History: Irregular montes de oca Musculoskeletal History: Reports: Fracture Other Musculoskeletal History: colar bone Neurological History: Reports: Brain Injury, CVA, Head Trauma, Seizure, Other ( See Below) Other Neuro History: TBI ICH Skull defect Psychiatric History: Reports: Anxiety, Depression, Psych Hospitalization(s), Suicide Attempt Hematologic History: Reports: Blood Transfusion(s), Iron Deficiency, Other (See Below) Other Hematologic History: Hypokelemia, hypomagnesemia, hyponatremia Oncologic (Cancer) History: Reports: Cervix - Infectious Disease History Infectious Disease History: Reports: Chicken Pox, MRSA - Past Surgical History Cardiovascular Surgical History: Reports: Coronary Artery Bypass GI Surgical History: Reports: Cholecystectomy Female Surgical History: Reports: Other (See Below) Other Female Surgeries/Procedures: removal of abscess from left breast Social & Family History - Tobacco Use Smoking Status *Q: Current Some Day Smoker Years of Tobacco use: 30 Packs/Tins Daily: 0.2 Used Tobacco, but Quit: No Second Hand Smoke Exposure: No - Caffeine Use Caffeine Use: Reports: Coffee - Recreational Drug Use Recreational Drug Use: No - Living Situation & Occupation Living situation: Reports: Single Occupation: Disabled (lives in Apartment, Sister and Uncle live in same building.) Review of Systems - Review of Systems Review Of Systems: See Below Constitutional: Reports: No Symptoms Eyes: Reports: No Symptoms Ears: Reports: No Symptoms Nose: Reports: No Symptoms Mouth/Throat: Reports: No Symptoms Respiratory: Reports: No Symptoms Cardiovascular: Reports: No Symptoms GI/Abdominal: Reports: No Symptoms Genitourinary: Reports: Vaginal Bleeding Musculoskeletal: Reports: Other ( severe pain in the rt leg. ) ED EXAM, GENERAL - Physical Exam Exam: See Below Free Text/Narrative:: Pt arrived with pain in the rt leg. She was seen a few days ago with severe leg pain. She was xrayed lumbar spine, and rt hleg which was neg. Exam Limited By: No Limitations General Appearance: Alert, Anxious, Moderate Distress Ears: Normal TMs Nose: Normal Inspection Throat/Mouth: Normal Inspection Head: Atraumatic Neck: Normal Inspection Respiratory/Chest: No Respiratory Distress Cardiovascular: Regular Rate, Rhythm GI/Abdominal: Soft, Non-Tender (Female) Exam: Deferred Rectal (Female) Exam: Deferred Back Exam: Other (pt has tenderness over the rt buttock. She is tender over the rt hip. She was tender in the rt calf. ) Extremities: Other (pt does not have sig swelling. ) Neurological: Alert, Oriented, Normal Cognition Psychiatric: Depressed Mood Course - Vital Signs Last Recorded V/S: Last Vital Signs Temp 37.1 C 10/14/17 21:25 Pulse 68 10/14/17 23:14 Resp 14 10/14/17 23:14 BP 145/80 H 10/14/17 23:14 Pulse Ox 100 10/14/17 23:14 - Orders/Labs/Meds Labs: Laboratory Tests 10/14/17 10/14/17 10/14/17 Range/Units 22:49 22:49 22:55 WBC 5.3 (4.5-11.0) K/uL RBC 3.66 (3.30-5.50) M/uL Hgb 10.5 L (12.0-15.0) g/dL Hct 32.9 L (36.0-48.0) % MCV 90 (80-98) fL MCH 29 (27-31) pg MCHC 32 (32-36) % Plt Count 119 L (150-400) K/uL Neut % (Auto) 33 L (36-66) % Lymph % (Auto) 51 H (24-44) % [place] % (Auto) 12 H (2-6) % Eos % (Auto) 4 (2-4) % Baso % (Auto) 0 (0-1) % Sodium 148 (140-148) mmol/L Potassium 3.9 (3.6-5.2) mmol/L Chloride 116 H (100-108) mmol/L Carbon Dioxide 26 (21-32) mmol/L Anion Gap 9.9 (5.0-14.0) mmol/L BUN 11 D (7-18) mg/dL Creatinine 1.1 H (0.6-1.0) mg/dL Est Cr Clr Drug Dosing 52.80 mL/min Estimated GFR (MDRD) 54 L (>60) Glucose 92 (74-106) mg/dL Calcium 8.6 (8.5-10.1) mg/dL Total Bilirubin 0.5 (0.2-1.0) mg/dL AST 32 (15-37) U/L ALT 28 (12-78) U/L Alkaline Phosphatase 134 H (46-116) U/L Total Protein 5.8 L (6.4-8.2) g/dL Albumin 2.6 L (3.4-5.0) g/dL Globulin 3.2 (2.3-3.5) g/dL Albumin/Globulin Ratio 0.8 L (1.2-2.2) Urine Color Yellow Urine Appearance Cloudy Urine pH 6.5 (4.5-8.0) Ur Specific [place] 1.015 (1.008-1.030) Urine Protein Negative (NEGATIVE) mg/dL Urine Glucose (UA) Normal (NEGATIVE) mg/dL Urine Ketones Negative (NEGATIVE) mg/dL Urine Occult Blood Negative (NEGATIVE) Urine Nitrite Negative (NEGATIVE) Urine Bilirubin Negative (NEGATIVE) Urine Urobilinogen 4 (NORMAL) mg/dL Ur Leukocyte Esterase Negative (NEGATIVE) Urine RBC 0-5 (0-5) Urine WBC 10-20 H (0-5) Ur Epithelial Cells Few Amorphous Sediment Not seen Urine Bacteria Many Urine Mucus Not seen Meds: Medications Discontinued Medications Generic Name Dose Route Start Last Admin Trade Name Juan PRN Reason Stop Dose Admin Hydromorphone HCl 0.5 mg 10/14/17 22:03 10/14/17 22:24 Dilaudid IM 10/14/17 22:04 0.5 mg ONETIME ONE Administration Ketorolac Tromethamine 60 mg 10/14/17 21:15 10/14/17 21:23 Toradol IM 10/14/17 21:16 60 mg ONETIME ONE Administration - Re-Assessments/Exams Free Text/Narrative Re-Assessment/Exam: 10/14/17 23:32 pt had lab work that was normal, Her us on the leg was neg. Departure - Departure Time of Disposition: 23:33 Disposition: Home, Self-Care 01 Condition: Fair Clinical Impression: Leg pain, posterior - Discharge Information Instructions: Muscle Pain, Adult Referrals: PCP,None [Primary Care Provider] - Forms: ED Department Discharge Care Plan Goals: rtc for a lumbar MRI, appt with Dr James gomez or glenn. alternate hot and cold on the rt hip area, percocet 5/325 q6h prn for pain # 6
[2017-10-14] MEDS ORDERED: HYDROmorphone 0.5 MG/0.5 ML Syringe IM ONE (22:03)
--- NOTE | 2017-10-15 10:18 | US ---
VL Duplex Lwr Ext Veins Ltd Rt HISTORY: Pain, fall. FINDINGS: The deep veins of the right lower extremity demonstrate normal augmentation and compressibi lity. No evidence for deep venous thrombosis. IMPRESSION: Normal lower extremity venous Doppler study.
== END 2017-10-14 23:57 | disposition home or self-care (01) ==
LOC: JP.ED 19:48
DX: M79.604 Pain in right leg (principal); F17.210 Nicotine dependence, cigarettes, uncomplicated; J45.909 Unspecified asthma, uncomplicated; Z79.899 Other long term (current) drug therapy; Z91.013 Allergy to seafood; Z88.8 Allergy status to other drugs, medicaments and biological substances
CPT/HCPCS: 36415; 80053; 81001; 85025; 93971; 96372; 99284; J1170; J1885; 99283

== ENCOUNTER 2017-10-19 21:09 | Emergency (ER) | payer MEDICAID ==
--- NOTE | 2017-10-19 23:20 | EDM.PDOC ---
ED HPI GENERAL MEDICAL PROBLEM - General Chief Complaint: General Stated Complaint: LEG IS GOING NUMB Time Seen by Provider: 10/19/17 23:04 Source of Information: Reports: Patient History Limitations: Reports: No Limitations - History of Present Illness INITIAL COMMENTS - FREE TEXT/NARRATIVE: low back pain radiated to right leg; this is a 42 year old female with multi chronic medical conditions, here to have results of MRI done earlier today and medication for her worsen back pain. She reports pain for the past year, but worse the past month. She reports not sleeping well for the past two days due to the pain. denies any changes in bowel or bladder. 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 Medication(s) (out of pain medication) Right Hip Pain Score (Numeric/FACES): 10 - Related Data Allergies Allergy/AdvReac Type Severity Reaction Status Date / Time Fish Containing Products Allergy Airway Verified 10/19/17 22:03 Tightness lamotrigine [From Lamictal] Allergy Leg Cramps Verified 10/19/17 22:03 tree nut Allergy Hives Verified 10/19/17 22:03 ziprasidone [From Geodon] Allergy Airway Verified 10/19/17 22:03 Tightness msg Allergy Hives Uncoded 10/14/17 19:57 Home Meds: Home Meds Cyanocobalamin (Vitamin B-12) [B-12] 500 mcg PO DAILY 07/29/17 [History] Ferrous Gluconate 324 mg PO DAILY 07/29/17 [History] Folic Acid 1 mg PO DAILY 07/29/17 [History] Gabapentin [Neurontin] 100 mg PO BID 07/29/17 [History] Lactulose 15 ml PO BID 07/29/17 [History] Thiamine [Vitamin B-1] 100 mg PO DAILY 07/29/17 [History] hydrOXYzine Pamoate [Hydroxyzine Pamoate] 25 mg PO TID PRN 07/29/17 [History] levETIRAcetam [Keppra] 500 mg PO BID 07/29/17 [History] Omeprazole 10 mg PO DAILY 10/19/17 [History] Past Medical History HEENT History: Reports: Hard of Hearing, Impaired Vision Cardiovascular History: Reports: CAD, [place], Other (See Below) Other Cardiovascular History: portal hypertension Respiratory History: Reports: Asthma Gastrointestinal History: Reports: Cirrhosis, Other (See Below) Other Gastrointestinal History: ascites, liver disease, cholecystitis, hepatic encephalopathy, stent placed in liver Genitourinary History: Reports: Renal Calculus, Other (See Below) Other Genitourinary History: urethral stent placed that extends to kidney 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 (See Below) Other OB/BYN History: Irregular montes de oca Musculoskeletal History: Reports: Fracture Other Musculoskeletal History: colar bone Neurological History: Reports: Brain Injury, CVA, Head Trauma, Seizure, Other ( See Below) Other Neuro History: TBI ICH Skull defect Psychiatric History: Reports: Anxiety, Depression, Psych Hospitalization(s), Suicide Attempt Hematologic History: Reports: Blood Transfusion(s), Iron Deficiency, Other (See Below) Other Hematologic History: Hypokelemia, hypomagnesemia, hyponatremia Oncologic (Cancer) History: Reports: Cervix - Infectious Disease History Infectious Disease History: Reports: Chicken Pox, MRSA - Past Surgical History HEENT Surgical History: Reports: None Cardiovascular Surgical History: Reports: Coronary Artery Bypass Respiratory Surgical History: Reports: None GI Surgical History: Reports: Cholecystectomy Female Surgical History: Reports: Other (See Below) Other Female Surgeries/Procedures: removal of abscess from left breast Neurological Surgical History: Reports: None Oncologic Surgical History: Reports: None Dermatological Surgical History: Reports: None Social & Family History - Tobacco Use Smoking Status *Q: Current Every Day Smoker Years of Tobacco use: 32 Packs/Tins Daily: 0.5 Used Tobacco, but Quit: No Second Hand Smoke Exposure: Yes - Caffeine Use Caffeine Use: Reports: Coffee, Tea - Recreational Drug Use Recreational Drug Use: No - Living Situation & Occupation Living situation: Reports: Single Occupation: Disabled (lives in Apartment, Sister and Uncle live in same building.) ED ROS GENERAL - Review of Systems Review Of Systems: See Below Constitutional: Reports: Fatigue (not sleeping well for the past two nights) Respiratory: Reports: No Symptoms Cardiovascular: Reports: No Symptoms Endocrine: Reports: No Symptoms GI/Abdominal: Reports: No Symptoms : Reports: No Symptoms Musculoskeletal: Reports: Back Pain, Leg Pain, Muscle Pain Skin: Reports: No Symptoms Neurological: Reports: Pre-Existing Deficit Psychiatric: Reports: No Symptoms Hematologic/Lymphatic: Reports: No Symptoms Immunologic: Reports: No Symptoms ED EXAM, GENERAL - Physical Exam Exam: See Below General Appearance: Alert, Moderate Distress, Thin (appears much older than stated age. 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) Head: Other (right side of head sunken deformity due to removal of skull from previous trauma) Neck: Normal Inspection, Supple, Non-Tender, Full Range of Motion Respiratory/Chest: No Respiratory Distress, Lungs Clear, Normal Breath Sounds Cardiovascular: Normal Peripheral Pulses, Regular Rate, Rhythm Back Exam: Normal Inspection, Muscle Spasm, Paraspinal Tenderness, Vertebral Tenderness Extremities: Normal Inspection, Leg Pain (right leg, increased pain with straight leg lift, left leg weakness from old CVA) Neurological: Alert, Oriented, Normal Cognition Psychiatric: Normal Affect, Normal Mood Skin Exam: Warm, Dry, Intact, Normal Color, No Rash Lymphatic: No Adenopathy Course - Vital Signs Last Recorded V/S: Last Vital Signs Temp 36.5 C 10/19/17 22:01 Pulse 74 10/19/17 22:01 Resp 16 10/19/17 22:01 BP 114/46 L 10/19/17 22:01 Pulse Ox 100 10/19/17 22:01 - Re-Assessments/Exams Free Text/Narrative Re-Assessment/Exam: reviewed today MRI report which shows multi bulging disc from L3 to L5 -S1 advised to follow up with Orthopedics for further care and treatment will give Percocet and flexeril for pain control Patient agrees with plan of care, will call for appointment of Sunday, - Departure Time of Disposition: 23:36 Disposition: Home, Self-Care 01 Condition: Good Clinical Impression: Bulging of intervertebral disc between L4 and L5 Acute low back pain Qualifiers: Back pain laterality: bilateral Sciatica laterality: sciatica of right side - Discharge Information Referrals: Vicky Ramirez MD [Primary Care Provider] - Forms: ED Department Discharge Care Plan Goals: back pain due to bulging disc -Percocet 5-325mg take one every 4 to 6 hours as needed for acute pain; #15 -Flexeril 10mg every 8 hours as needed for muscle spasms #15 advised to rest, no lifting, bending or twisting of spine. advised to call Orthopedic Clinic on Sunday for appointment for follow up will need to follow up in no improved or symptoms worsen. - Problem List & Annotations (1) Acute low back pain SNOMED Code(s): 576284167 Code(s): M54.5 - LOW BACK PAIN Status: Acute Current Visit: Yes Qualifiers: Back pain laterality: bilateral Sciatica laterality: sciatica of right side (2) Bulging of intervertebral disc between L4 and L5 SNOMED Code(s): 986877671 Code(s): M51.26 - OTHER INTERVERTEBRAL DISC DISPLACEMENT, LUMBAR REGION Status: Acute Priority: High Current Visit: Yes - Problem List Review Problem List Initiated/Reviewed/Updated: Yes - Assessment/Plan Plan: back pain due to bulging disc -Percocet 5-325mg take one every 4 to 6 hours as needed for acute pain; #15 -Flexeril 10mg every 8 hours as needed for muscle spasms #15 advised to rest, no lifting, bending or twisting of spine. advised to call Orthopedic Clinic on Sunday for appointment for follow up will need to follow up in no improved or symptoms worsen.
== END 2017-10-19 23:38 | disposition home or self-care (01) ==
LOC: JP.ED 21:09
DX: M51.86 Other intervertebral disc disorders, lumbar region (principal); F17.210 Nicotine dependence, cigarettes, uncomplicated; J45.909 Unspecified asthma, uncomplicated; Z88.8 Allergy status to other drugs, medicaments and biological substances; Z91.013 Allergy to seafood; Z91.018 Allergy to other foods
CPT/HCPCS: 99284

== ENCOUNTER 2017-10-25 19:45 | Observation (INO) | payer MEDICAID ==
[2017-10-25] MEDS ORDERED: Ketorolac 30 MG/ML SDV IVPUSH ONE (20:08)
[2017-10-25] MEDS ORDERED: Sodium Chloride 0.9% 10 ML Syringe FLUSH PRN (20:08)
[2017-10-25] MEDS ORDERED: HYDROmorphone 0.5 MG/0.5 ML Syringe IVPUSH ONE (20:09)
[2017-10-25] MEDS ORDERED: methylPREDNISolone Sodium Succinate 125 MG/2 ML SDV IVPUSH ONE (20:09)
--- NOTE | 2017-10-25 20:20 | EDM.PDOC ---
ED HPI GENERAL MEDICAL PROBLEM - General Chief Complaint: Lower Extremity Injury/Pain Stated Complaint: FELL IN SHOWER Time Seen by Provider: 10/25/17 20:00 Source of Information: Reports: Patient, EMS, Old Records History Limitations: Reports: No Limitations - History of Present Illness INITIAL COMMENTS - FREE TEXT/NARRATIVE: 42 yo female who lives alone and who has been having ongoing low back pain and pain radiating down her R leg fell in the shower this evening. She managed to break her fall by grabbing a support bar. However, she now has increased low back pain and radiation down the R leg. Had a recent outpatient MRI for this problem that showed significant disc herniations of the low lumbar spine. A clinic appt is pending for her tomorrow to check on her pain and make a plan for management. Used up her last doses of Percocet and a muscle relaxer earlier today. Has not seen a surgeon or back specialist yet. No bowel or bladder incontinence. Here via EMS after the fall due to her increased pain. Onset: Unknown/Unsure, Other (this evening's fall aggrevated the pre-existing problem) Duration: Week(s):, Getting Worse Location: Reports: Back (low) Quality: Reports: Ache, Burning (down R leg) Severity: Severe Improves with: Reports: Immobilization, Rest Worsens with: Reports: Movement Context: Reports: Other (has known lumbar disc herniations) Associated Symptoms: Reports: No Other Symptoms Treatments CLIENT LEADER: Reports: Other (see below) (none) Right Leg Pain Score (Numeric/FACES): 10 - Related Data Allergies Allergy/AdvReac Type Severity Reaction Status Date / Time Fish Containing Products Allergy Airway Verified 10/25/17 19:52 Tightness lamotrigine [From Lamictal] Allergy Leg Cramps Verified 10/25/17 19:52 tree nut Allergy Hives Verified 10/25/17 19:52 ziprasidone [From Geodon] Allergy Airway Verified 10/25/17 19:52 Tightness msg Allergy Hives Uncoded 10/14/17 19:57 Home Meds: Home Meds Cyanocobalamin (Vitamin B-12) [B-12] 500 mcg PO DAILY 07/29/17 [History] Ferrous Gluconate 324 mg PO DAILY 07/29/17 [History] Folic Acid 1 mg PO DAILY 07/29/17 [History] Gabapentin [Neurontin] 100 mg PO BID 07/29/17 [History] Lactulose 15 ml PO BID 07/29/17 [History] Thiamine [Vitamin B-1] 100 mg PO DAILY 07/29/17 [History] hydrOXYzine Pamoate [Hydroxyzine Pamoate] 25 mg PO TID PRN 07/29/17 [History] levETIRAcetam [Keppra] 500 mg PO BID 07/29/17 [History] Omeprazole 10 mg PO DAILY 10/19/17 [History] Past Medical History HEENT History: Reports: Hard of Hearing, Impaired Vision Cardiovascular History: Reports: CAD, [place], Other (See Below) Other Cardiovascular History: portal hypertension Respiratory History: Reports: Asthma Gastrointestinal History: Reports: Cirrhosis, Other (See Below) Other Gastrointestinal History: ascites, liver disease, cholecystitis, hepatic encephalopathy, stent placed in liver Genitourinary History: Reports: Renal Calculus, Other (See Below) Other Genitourinary History: urethral stent placed that extends to kidney 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 (See Below) Other OB/BYN History: Irregular montes [place] oca Musculoskeletal History: Reports: Fracture Other Musculoskeletal History: colar bone Neurological History: Reports: Brain Injury, CVA, Head Trauma, Seizure, Other ( See Below) Other Neuro History: TBI ICH Skull defect Psychiatric History: Reports: Anxiety, Depression, Psych Hospitalization(s), Suicide Attempt Hematologic History: Reports: Blood Transfusion(s), Iron Deficiency, Other (See Below) Other Hematologic History: Hypokelemia, hypomagnesemia, hyponatremia Oncologic (Cancer) History: Reports: Cervix - Infectious Disease History Infectious Disease History: Reports: Chicken Pox, MRSA - Past Surgical History Head Surgeries/Procedures: Reports: None HEENT Surgical History: Reports: None Cardiovascular Surgical History: Reports: Coronary Artery Bypass Respiratory Surgical History: Reports: None GI Surgical History: Reports: Cholecystectomy Female Surgical History: Reports: Other (See Below) Other Female Surgeries/Procedures: removal of abscess from left breast Neurological Surgical History: Reports: None Oncologic Surgical History: Reports: None Dermatological Surgical History: Reports: None Social & Family History - Tobacco Use Smoking Status *Q: Current Every Day Smoker Years of Tobacco use: 32 Packs/Tins Daily: 0.5 Used Tobacco, but Quit: No Second Hand Smoke Exposure: Yes - Caffeine Use Caffeine Use: Reports: Coffee - Recreational Drug Use Recreational Drug Use: No - Living Situation & Occupation Living situation: Reports: Single Occupation: Disabled (lives in Apartment, Sister and Uncle live in same building.) Review of Systems - Review of Systems Review Of Systems: See Below Constitutional: Reports: No Symptoms Eyes: Reports: No Symptoms Ears: Reports: No Symptoms Nose: Reports: No Symptoms Mouth/Throat: Reports: No Symptoms Respiratory: Reports: No Symptoms Cardiovascular: Reports: No Symptoms GI/Abdominal: Reports: No Symptoms Genitourinary: Reports: No Symptoms Musculoskeletal: Reports: Back Pain Skin: Reports: No Symptoms Neurological: Reports: Other (Pain radiating down her R leg.) ED EXAM, GENERAL - Physical Exam Exam: See Below Exam Limited By: No Limitations General Appearance: Alert, WD/WN, Mild Distress Eye Exam: Bilateral Eye: Normal Inspection Ears: Normal External Exam, Normal Canal, Hearing Grossly Normal Ear Exam: Bilateral Ear: Auricle Normal, Canal Normal, TM normal Nose: Normal Inspection, Normal Mucosa, No Blood Throat/Mouth: Normal Inspection, Normal Lips, Normal Teeth Head: Atraumatic, Normocephalic Neck: Normal Inspection, Supple, Non-Tender Respiratory/Chest: No Respiratory Distress, Lungs Clear, Normal Breath Sounds, No Accessory Muscle Use Cardiovascular: Regular Rate, Rhythm GI/Abdominal: Normal Bowel Sounds, Soft, Non-Tender, No Distention Back Exam: Normal Inspection. No: CVA Tenderness (R), CVA Tenderness (L) Extremities: Normal Inspection, No Pedal Edema, Limited Range of Motion (any movement of the R leg increases her low back pain. ) Neurological: Alert, Oriented, CN II-XII Intact, Normal Cognition, No Motor/ Sensory Deficits Psychiatric: Normal Affect, Normal Mood Skin Exam: Warm, Dry, Intact, Normal Color, No Rash Course - Vital Signs Text/Narrative:: Not able to ambulate with a walker after Solumedrol, Toradol 30 mg IV, and Dilaudid 0.5 mg IV Will stay as an OBS patient for pain control. Last Recorded V/S: Last Vital Signs Temp 36.6 C 10/25/17 19:49 Pulse 101 H 10/25/17 19:49 Resp 16 10/25/17 19:49 BP 149/112 H 10/25/17 19:49 Pulse Ox 100 10/25/17 19:49 - Orders/Labs/Meds Orders: Active Orders 24 hr Category Date Time Status Sodium Chloride 0.9% [Saline Flush] Med 10/25/17 20:08 Active 10 ml FLUSH ASDIRECTED PRN Saline Lock Insert [OM.PC] Routine Oth 10/25/17 20:08 Ordered Medication Orders Sodium Chloride (Saline Flush) 10 ml FLUSH ASDIRECTED PRN PRN Reason: Keep Vein Open Last Admin: 10/25/17 20:25 Dose: 10 ml Meds: Medications Generic Name Dose Route Start Last Admin Trade Name Freq PRN Reason Stop Dose Admin Sodium Chloride 10 ml 10/25/17 20:08 10/25/17 20:25 Saline Flush FLUSH 10 ml ASDIRECTED PRN Administration Keep Vein Open Discontinued Medications Generic Name Dose Route Start Last Admin Trade Name Freq PRN Reason Stop Dose Admin Hydromorphone HCl 0.5 mg 10/25/17 20:09 10/25/17 20:24 Dilaudid IVPUSH 10/25/17 20:10 0.5 mg ONETIME ONE Administration Ketorolac Tromethamine 30 mg 10/25/17 20:08 10/25/17 20:24 Toradol IVPUSH 10/25/17 20:09 30 mg ONETIME ONE Administration Methylprednisolone Sodium Succinate 125 mg 10/25/17 20:09 10/25/17 20:25 Solu-Medrol IVPUSH 10/25/17 20:10 125 mg ONETIME ONE Administration Departure - Departure Time of Disposition: 21:35 Disposition: Refer to Observation Condition: Fair Clinical Impression: Lumbar disc herniation with radiculopathy, Intractable back pain - Discharge Information Referrals: PCP,None [Primary Care Provider] - Forms: ED Department Discharge - My Orders Last 24 Hours: My Active Orders 10/25/17 20:08 Sodium Chloride 0.9% [Saline Flush] 10 ml FLUSH ASDIRECTED PRN Saline Lock Insert [OM.PC] Routine - Assessment/Plan Last 24 Hours: My Active Orders 10/25/17 20:08 Sodium Chloride 0.9% [Saline Flush] 10 ml FLUSH ASDIRECTED PRN Saline Lock Insert [OM.PC] Routine
--- NOTE | 2017-10-25 22:41 | PCM.HP ---
H&P History of Present Illness - General Admit Problem/Dx: Admission Diagnosis/Problem Admission Diagnosis/Problem Intractable back pain Source of Information: Patient, EMS Notes Reviewed, Provider, RN History Limitations: Reports: No Limitations - History of Present Illness Initial Comments - Free Text/Narative: 42 yo female who lives alone and who has been having ongoing low back pain and pain radiating down her R leg fell in the shower this evening. She managed to break her fall by grabbing a support bar. However, she now has increased low back pain and radiation down the R leg. Had a recent outpatient MRI for this problem that showed significant disc herniations of the low lumbar spine. A clinic appt is pending for her tomorrow to check on her pain and make a plan for management. Used up her last doses of Percocet and a muscle relaxer earlier today. Has not seen a surgeon or back specialist yet. No bowel or bladder incontinence. Here via EMS after the fall due to her increased pain. Onset: Unknown/Unsure, Other (this evening's fall aggrevated the pre-existing problem) Duration: Week(s):, Getting Worse Location: Reports: Back (low) Quality: Reports: Ache, Burning (down R leg) Severity: Severe Improves with: Reports: Immobilization, Rest Worsens with: Reports: Movement Context: Reports: Other (has known lumbar disc herniations) Associated Symptoms: Reports: No Other Symptoms Treatments OPTIMIZATION ANALYST: Reports: Other (see below) (none) Right Leg Pain Score (Numeric/FACES): 10 - Onset of Symptoms: Reports: Gradual Duration of Symptoms: Reports: Getting Worse Location: Reports: Back, Lower Extremity, Right Quality: Reports: Sharp, Throbbing Severity: Severe Improves with: Reports: Rest Worsens with: Reports: Movement Associated Symptoms: Reports: No Other Symptoms Right Leg Pain Score (Numeric/FACES): 10 - Related Data Allergies/Adverse Reactions: Allergies Allergy/AdvReac Type Severity Reaction Status Date / Time Fish Containing Products Allergy Airway Verified 10/25/17 19:52 Tightness lamotrigine [From Lamictal] Allergy Leg Cramps Verified 10/25/17 19:52 tree nut Allergy Hives Verified 10/25/17 19:52 ziprasidone [From Geodon] Allergy Airway Verified 10/25/17 19:52 Tightness msg Allergy Hives Uncoded 10/14/17 19:57 Home Medications: Home Meds Cyanocobalamin (Vitamin B-12) [B-12] 500 mcg PO DAILY 07/29/17 [History] Ferrous Gluconate 324 mg PO DAILY 07/29/17 [History] Folic Acid 1 mg PO DAILY 07/29/17 [History] Gabapentin [Neurontin] 100 mg PO BID 07/29/17 [History] Lactulose 15 ml PO BID 07/29/17 [History] Thiamine [Vitamin B-1] 100 mg PO DAILY 07/29/17 [History] hydrOXYzine Pamoate [Hydroxyzine Pamoate] 25 mg PO TID PRN 07/29/17 [History] levETIRAcetam [Keppra] 500 mg PO BID 07/29/17 [History] Omeprazole 10 mg PO DAILY 10/19/17 [History] Past Medical History HEENT History: Reports: Hard of Hearing, Impaired Vision Cardiovascular History: Reports: CAD, VA, Other (See Below) Other Cardiovascular History: portal hypertension Respiratory History: Reports: Asthma Gastrointestinal History: Reports: Cirrhosis, Other (See Below) Other Gastrointestinal History: ascites, liver disease, cholecystitis, hepatic encephalopathy, stent placed in liver Genitourinary History: Reports: Renal Calculus, Other (See Below) Other Genitourinary History: urethral stent placed that extends to kidney SENIOR EDITOR History: Reports: Other (See Below) Other OB/BYN History: Irregular [place] Musculoskeletal History: Reports: Fracture Other Musculoskeletal History: colar bone Neurological History: Reports: Brain Injury, CVA, Head Trauma, Seizure, Other ( See Below) Other Neuro History: TBI ICH Skull defect Psychiatric History: Reports: Anxiety, Depression, Psych Hospitalization(s), Suicide Attempt Hematologic History: Reports: Blood Transfusion(s), Iron Deficiency, Other (See Below) Other Hematologic History: Hypokelemia, hypomagnesemia, hyponatremia Oncologic (Cancer) History: Reports: Cervix - Infectious Disease History Infectious Disease History: Reports: Chicken Pox, MRSA - Past Surgical History Head Surgeries/Procedures: Reports: None HEENT Surgical History: Reports: None Cardiovascular Surgical History: Reports: Coronary Artery Bypass Respiratory Surgical History: Reports: None GI Surgical History: Reports: Cholecystectomy Female Surgical History: Reports: Other (See Below) Other Female Surgeries/Procedures: removal of abscess from left breast Neurological Surgical History: Reports: None Oncologic Surgical History: Reports: None Dermatological Surgical History: Reports: None Social & Family History - Tobacco Use Smoking Status *Q: Current Every Day Smoker Years of Tobacco use: 32 Packs/Tins Daily: 0.5 Used Tobacco, but Quit: No Second Hand Smoke Exposure: Yes - Caffeine Use Caffeine Use: Reports: Coffee - Recreational Drug Use Recreational Drug Use: No - Living Situation & Occupation Living situation: Reports: Single Occupation: Disabled (lives in Apartment, Sister and Uncle live in same building.) H&P Review of Systems - Review of Systems: Review Of Systems: See Below General: Reports: Other (back pain) HEENT: Reports: No Symptoms, Other (hx of TBI with skull deformity right side) Pulmonary: Reports: No Symptoms, Other (tobacco use) Cardiovascular: Reports: No Symptoms Gastrointestinal: Reports: No Symptoms Genitourinary: Reports: No Symptoms Musculoskeletal: Reports: Back Pain, Leg Pain (right) Skin: Reports: Pallor Psychiatric: Reports: Other (TBI) Neurological: Reports: No Symptoms Hematologic/Lymphatic: Reports: No Symptoms Immunologic: Reports: No Symptoms Exam - Exam Exam: See Below - Vital Signs Vital Signs: Last Vital Signs Temp 36.6 C 10/25/17 19:49 Pulse 101 H 10/25/17 19:49 Resp 16 10/25/17 19:49 BP 149/112 H 10/25/17 19:49 Pulse Ox 100 10/25/17 19:49 Weight: 64.864 kg - Exam General: Alert, Oriented, Cooperative, Sedated HEENT: PERRLA, Conjunctiva Clear, EACs Clear, EOMI, Hearing Intact, Mucosa Moist & [place], Nares Patent, Normal Nasal Septum, Posterior Pharynx Clear, TMs Clear, Other (abnormal head shape due to previous trauma) Neck: Supple, Trachea Midline, 2 Lungs: Clear to Auscultation, Normal Respiratory Effort Cardiovascular: Regular Rate, Regular Rhythm GI/Abdominal Exam: Soft, Non-Tender, Distended (Female) Exam: Deferred Rectal (Female) Exam: Deferred Back Exam: Muscle Spasm, Paraspinal Tenderness, Vertebral Tenderness Extremities: Normal Inspection, Normal Range of Motion, Non-Tender, No Pedal Edema, Normal Capillary Refill, Other (patellar reflexes equal bilateral, increased pain with straight leg lift rt) Peripheral Pulses: 2+: Dorsalis Pedis (L), Dorsalis Pedis (R) Skin: Warm, Dry, Intact Neurological: Reflexes Equal Bilateral, Strength Equal Bilateral, Normal Speech , Normal Tone, Sensation Intact Neuro Extensive - Mental Status: Alert, Oriented x3, Normal Mood/Affect, Normal Cognition Neuro Extensive - Motor, Sensory, Reflexes: CN II-XII Intact, Normal Reflexes DTR: 2+: Patella (L), Patella (R) Psychiatric: Alert, Normal Affect, Normal Mood *Q Meaningful Use (ADM) - VTE *Q VTE Criteria *Q: - Stroke *Q Stroke Criteria *Q: - AMI *Q AMI Criteria *Q: - Problem List (1) Hx of cirrhosis SNOMED Code(s): 020316642 ICD Code: Z87.19 - PERSONAL HISTORY OF OTHER DISEASES OF THE DIGESTIVE SYSTEM Status: Acute Priority: Medium Current Visit: Yes (2) Intractable back pain SNOMED Code(s): 265325044 ICD Code: M54.9 - DORSALGIA, UNSPECIFIED Status: Acute Priority: High Current Visit: Yes (3) Lumbar disc herniation with radiculopathy SNOMED Code(s): 721814851 ICD Code: M51.16 - INTERVERTEBRAL DISC DISORDERS W RADICULOPATHY, LUMBAR REGION Status: Acute Priority: High Current Visit: Yes (4) Seizure disorder SNOMED Code(s): 805317426 ICD Code: G40.909 - EPILEPSY, UNSP, NOT INTRACTABLE, WITHOUT STATUS EPILEPTICUS Status: Chronic Priority: High Current Visit: No (5) Tobacco use SNOMED Code(s): 780297381 ICD Code: Z72.0 - TOBACCO USE Status: Acute Priority: Medium Current Visit: Yes Problem List Initiated/Reviewed/Updated: Yes Orders Last 24hrs: Active Orders 24 hr Category Date Time Status Patient Status Manage Transfer [TRANSFER] Routine ADT 10/25/17 22:20 Ordered Sodium Chloride 0.9% [Saline Flush] Med 10/25/17 20:08 Active 10 ml FLUSH ASDIRECTED PRN Saline Lock Insert [OM.PC] Routine Oth 10/25/17 20:08 Ordered Resuscitation Status Routine Resus Stat 10/25/17 22:23 Ordered Medication Orders Sodium Chloride (Saline Flush) 10 ml FLUSH ASDIRECTED PRN PRN Reason: Keep Vein Open Last Admin: 10/25/17 20:25 Dose: 10 ml Assessment/Plan Comment:: ASSESSMENT / PLAN -This is a 42 year old female present to ER with complaints of uncontrolled back pain from fall at home in her shower. She was unable to stand after fall, crawled to her bed then call ambulance. She was seen earlier this week for back pain, she has an appointment with PCP at 10 am tomorrow morning. She will be admitted for pain control. Plan Intractable back pain, hx of herniated disc per MRI -Admit to [address] [place] [id number] for further monitoring -IV fluids for rehydration NS at 125 mL per hour -Advise to notify nurses of any worsen back pain or other symptoms -pain medication ordered -And a.m. labs: CBC, BMP, ammonia level, ua, uds, amylase and lipase Cirrhosis of liver -has not been taking Lactose due to diarrhea -pending ammonia lever, INR, PT, CBC -restart Lactose Seizure disorder, hx of TBI -reorder seizure medication Maintenance issues -Orders home meds: -Nutrition: Regular diet -tobacco use; nicotine gum ordered -Jean catheter not indicated at this time -DVT:SCD -GI Prophalaxis; PO Protonix 40mg daily -consult to PT -consult to OT -consult to Orthopedics CODE STATUS: Full Admission status: Admit to Observation -I expect this patient to stay less than 24 hours, not to exceed 96 hours for evaluation and management of this problem. Disposition: home Primary care provider: Dr. Rodas Hospitalist: Dr. Antonio Garay
[2017-10-25] MEDS ORDERED: Nicotine Polacrilex 2 MG Gum CHEW PRN (23:08)
[2017-10-25] MEDS ORDERED: Albuterol 0.083% 2.5 MG/3 ML Neb Soln NEB PRN (23:08)
[2017-10-25] MEDS ORDERED: Acetaminophen 325 MG Tab PO PRN (23:08)
[2017-10-25] MEDS ORDERED: Ondansetron 4 MG/2 ML SDV IV PRN (23:08)
[2017-10-25] MEDS ORDERED: Temazepam 15 MG Cap PO PRN (23:08)
[2017-10-25] MEDS ORDERED: Ondansetron 4 MG Tab.DIS PO PRN (23:08)
[2017-10-25] MEDS ORDERED: LORazepam 2 MG/ML MDV IV PRN (23:08)
[2017-10-26] MEDS: Sodium Chloride 0.9% 1,000 ML IV SCH ×2 (00:04→07:54)
[2017-10-26] MEDS: HYDROmorphone 0.5 MG/0.5 ML Syringe IVPUSH PRN ×3 (00:08→06:14)
[2017-10-26] MEDS: Gabapentin 100 MG Cap PO SCH ×2 (00:08→08:30)
[2017-10-26] MEDS: Lactulose Soln 10 GM/15 ML 15 ML UD Cup PO SCH ×2 (00:08→08:30)
[2017-10-26] MEDS: levETIRAcetam 250 MG Tab PO SCH ×2 (00:08→08:30)
[2017-10-26] MEDS: oxyCODONE 5 MG Tab PO PRN ×2 (01:24→08:42)
[2017-10-26] MEDS ORDERED: Pantoprazole 40 MG Tab.CR PO SCH (07:30)
[2017-10-26] MEDS ORDERED: Magnesium Oxide 400 MG Tab PO SCH (09:00)
[2017-10-26] MEDS ORDERED: Folic Acid 1 MG Tab PO SCH (09:00)
[2017-10-26] MEDS ORDERED: Sulfamethoxazole/Trimethoprim 800-160 MG Tab PO SCH (09:00)
[2017-10-26] MEDS ORDERED: Thiamine 100 MG Tab PO SCH (09:00)
--- NOTE | 2017-10-26 09:15 | PCM.DCSUM1 ---
Discharge Summary - Hospital Course Brief History: Ms. Leggett is a 42-year-old woman with a known history of chronic low back problems. She developed increased back pain after she fell in the shower, with new radicular pain in the right leg. - Discharge Data Discharge Date: 10/26/17 Discharge Disposition: Home, Self-Care 01 Condition: Fair - Discharge Diagnosis/Problem(s) (1) Lumbar foraminal stenosis SNOMED Code(s): 404561802379 ICD Code: M99.83 - OTHER BIOMECHANICAL LESIONS OF LUMBAR REGION Status: Acute Current Visit: No (2) Lumbar disc herniation with radiculopathy SNOMED Code(s): 297251001 ICD Code: M51.16 - INTERVERTEBRAL DISC DISORDERS W RADICULOPATHY, LUMBAR REGION Status: Acute Priority: High Current Visit: Yes (3) Hx of cirrhosis SNOMED Code(s): 841713301 ICD Code: Z87.19 - PERSONAL HISTORY OF OTHER DISEASES OF THE DIGESTIVE SYSTEM Status: Acute Priority: Medium Current Visit: Yes - Patient Summary/Data Consults: Consultations 10/25/17 23:08 Consult to Physician [CONS] Routine Consulting Provider: Jarrod Herrera Call Completed to Consulting Physician: Yes: eval for back pain Reason for Consult: intractable back pain with herniated disc per mri Person Notified: ApoloniaLux Date Notified: 10/25/17 Time Notified: 22:00 OT Evaluation and Treatment [CONS] Routine Please Evaluate and Treat. OT Reason for Consult: Discharge Planning This query below is only for informational purposes and is not editable. PT Evaluation and Treatment [CONS] Routine Please Evaluate and Treat. PT Reason for Consult: Strengthening Special Instructions: intractable back pain with herniated disc This query below is only for informational purposes and is not editable. Hospital Course: Ms. Leggett has had ongoing difficulty with low back pain, recent MRI did show facet narrowing as well as a bulging disc in the lumbar spine. She was seen and evaluated by Dr. Dagoberto Herrera, referral to spine surgeon in [place] was ordered as well as epidural steroid injections. Last night she fell in the shower and experienced increased back pain as well as pain into her right leg. She was admitted to the hospital on observation status and given pain medication as needed. She is doing better this morning and able to ambulate short distances, pain has not totally resolved. She will be discharged for outpatient follow-up and will see her primary care provider at 10 AM this morning. Epidural steroid injections have been ordered and she plans to follow through with that as well as her appointment with the spine surgeon in [place]. Activity will be as tolerated and she will resume her usual diet. - Patient Instructions Diet: Usual Diet as Tolerated Activity: As Tolerated Other/Special Instructions: Follow-up with primary care provider's previously scheduled later this morning at 10 AM. Follow-up with epidural steroid injections as ordered by Dr. Herrera. Follow-up with spine surgery at [facility] in [place] as previously scheduled by Dr. Herrera. - Discharge Plan Home Medications: Home Meds Cyanocobalamin (Vitamin B-12) [B-12] 500 mcg PO DAILY 07/29/17 [History] Ferrous Gluconate 324 mg PO DAILY 07/29/17 [History] Folic Acid 1 mg PO DAILY 07/29/17 [History] Gabapentin [Neurontin] 100 mg PO BID 07/29/17 [History] Lactulose 15 ml PO BID 07/29/17 [History] Thiamine [Vitamin B-1] 100 mg PO DAILY 07/29/17 [History] hydrOXYzine Pamoate [Hydroxyzine Pamoate] 25 mg PO TID PRN 07/29/17 [History] levETIRAcetam [Keppra] 500 mg PO BID 07/29/17 [History] Omeprazole 10 mg PO DAILY 10/19/17 [History] Referrals: PCP,None [Primary Care Provider] - - Patient Data Vitals - Most Recent: Last Vital Signs Temp 97.9 F 10/26/17 03:00 Pulse 81 10/26/17 03:00 Resp 18 10/26/17 03:00 BP 140/75 10/26/17 03:00 Pulse Ox 97 10/26/17 03:00 Weight - Most Recent: 143 lb I&O - Last 24 hours: Intake & Output 10/25/17 10/26/17 10/26/17 22:59 06:59 14:59 Intake Total 1205 Output Total 450 Balance 755 Lab Results - Last 24 hrs: Laboratory Results - last 24 hr 10/25/17 10/25/17 10/25/17 Range/Units 23:08 23:08 23:19 WBC (4.5-11.0) K/uL RBC (3.30-5.50) M/uL Hgb (12.0-15.0) g/dL Hct (36.0-48.0) % MCV (80-98) fL MCH (27-31) pg MCHC (32-36) % Plt Count (150-400) K/uL Neut % (Auto) (36-66) % Lymph % (Auto) (24-44) % [place] % (Auto) (2-6) % Eos % (Auto) (2-4) % Baso % (Auto) (0-1) % PT (9.5-12.0) sec INR (0.80-1.20) Sodium (140-148) mmol/L Potassium (3.6-5.2) mmol/L Chloride (100-108) mmol/L Carbon Dioxide (21-32) mmol/L Anion Gap (5.0-14.0) mmol/L BUN (7-18) mg/dL Creatinine (0.6-1.0) mg/dL Est Cr Clr Drug Dosing mL/min Estimated GFR (MDRD) (>60) Glucose (74-106) mg/dL Calcium (8.5-10.1) mg/dL Phosphorus (2.5-4.9) mg/dL Magnesium (1.8-2.4) mg/dL Total Bilirubin (0.2-1.0) mg/dL AST (15-37) U/L ALT (12-78) U/L Alkaline Phosphatase (46-116) U/L Ammonia 49 H (11-32) mmol/L Total Protein (6.4-8.2) g/dL Albumin (3.4-5.0) g/dL Globulin (2.3-3.5) g/dL Albumin/Globulin Ratio (1.2-2.2) Amylase (25-115) U/L Lipase (73-393) U/L Urine Color Yellow Urine Appearance Turbid Urine pH 7.0 (4.5-8.0) Ur Specific [place] 1.015 (1.008-1.030) Urine Protein Negative (NEGATIVE) mg/dL Urine Glucose (UA) Normal (NEGATIVE) mg/dL Urine Ketones Negative (NEGATIVE) mg/dL Urine Occult Blood Moderate (NEGATIVE) Urine Nitrite Negative (NEGATIVE) Urine Bilirubin Small (NEGATIVE) Urine Urobilinogen 4 (NORMAL) mg/dL Ur Leukocyte Esterase Small (NEGATIVE) Urine RBC 5-10 H (0-5) Urine WBC 20-30 H (0-5) Ur Epithelial Cells Moderate Amorphous Sediment Not seen Urine Bacteria Many Urine Mucus Few Urine Other Urine Opiates Screen Positive H (NEGATIVE) Ur Oxycodone Screen Positive H (NEGATIVE) Urine Methadone Screen Negative (NEGATIVE) Ur Propoxyphene Screen Negative (NEGATIVE) Ur Barbiturates Screen Negative (NEGATIVE) Ur Tricyclics Screen Positive H (NEGATIVE) Ur Phencyclidine Scrn Negative (NEGATIVE) Ur Amphetamine Screen Negative (NEGATIVE) U Methamphetamines Scrn Negative (NEGATIVE) Urine MDMA Screen Negative (NEGATIVE) U Benzodiazepines Scrn Negative (NEGATIVE) U Cocaine Metab Screen Negative (NEGATIVE) U Marijuana (THC) Screen Negative (NEGATIVE) 10/25/17 10/25/17 10/25/17 Range/Units 23:19 23:19 23:19 WBC 4.2 L (4.5-11.0) K/uL RBC 4.27 (3.30-5.50) M/uL Hgb 12.3 (12.0-15.0) g/dL Hct 37.7 (36.0-48.0) % MCV 88 (80-98) fL MCH 29 (27-31) pg MCHC 33 (32-36) % Plt Count 112 L (150-400) K/uL Neut % (Auto) 77 H (36-66) % Lymph % (Auto) 19 L (24-44) % [place] % (Auto) 2 (2-6) % Eos % (Auto) 1 L (2-4) % Baso % (Auto) 1 (0-1) % PT 12.2 H (9.5-12.0) sec INR 1.13 (0.80-1.20) Sodium 145 (140-148) mmol/L Potassium 4.0 (3.6-5.2) mmol/L Chloride 111 H (100-108) mmol/L Carbon Dioxide 26 (21-32) mmol/L Anion Gap 12.0 (5.0-14.0) mmol/L BUN 14 (7-18) mg/dL Creatinine 0.8 (0.6-1.0) mg/dL Est Cr Clr Drug Dosing 74.23 mL/min Estimated GFR (MDRD) > 60 (>60) Glucose 141 H (74-106) mg/dL Calcium 9.1 (8.5-10.1) mg/dL Phosphorus 1.8 L (2.5-4.9) mg/dL Magnesium 1.4 L (1.8-2.4) mg/dL Total Bilirubin 0.8 D (0.2-1.0) mg/dL AST 35 (15-37) U/L ALT 28 (12-78) U/L Alkaline Phosphatase 158 H (46-116) U/L Ammonia (11-32) mmol/L Total Protein 6.5 (6.4-8.2) g/dL Albumin 2.9 L (3.4-5.0) g/dL Globulin 3.6 H (2.3-3.5) g/dL Albumin/Globulin Ratio 0.8 L (1.2-2.2) Amylase 89 (25-115) U/L Lipase 233 (73-393) U/L Urine Color Urine Appearance Urine pH (4.5-8.0) Ur Specific [place] (1.008-1.030) Urine Protein (NEGATIVE) mg/dL Urine Glucose (UA) (NEGATIVE) mg/dL Urine Ketones (NEGATIVE) mg/dL Urine Occult Blood (NEGATIVE) Urine Nitrite (NEGATIVE) Urine Bilirubin (NEGATIVE) Urine Urobilinogen (NORMAL) mg/dL Ur Leukocyte Esterase (NEGATIVE) Urine RBC (0-5) Urine WBC (0-5) Ur Epithelial Cells Amorphous Sediment Urine Bacteria Urine Mucus Urine Other Urine Opiates Screen (NEGATIVE) Ur Oxycodone Screen (NEGATIVE) Urine Methadone Screen (NEGATIVE) Ur Propoxyphene Screen (NEGATIVE) Ur Barbiturates Screen (NEGATIVE) Ur Tricyclics Screen (NEGATIVE) Ur Phencyclidine Scrn (NEGATIVE) Ur Amphetamine Screen (NEGATIVE) U Methamphetamines Scrn (NEGATIVE) Urine MDMA Screen (NEGATIVE) U Benzodiazepines Scrn (NEGATIVE) U Cocaine Metab Screen (NEGATIVE) U Marijuana (THC) Screen (NEGATIVE) Med Orders - Current: Current Medications Acetaminophen (Tylenol) 650 mg PO Q4H PRN PRN Reason: analgesia/fever Albuterol (Proventil Neb Soln) 2.5 mg NEB Q4H PRN PRN Reason: Shortness Of Breath/wheezing Folic Acid (Folic Acid) 1 mg PO DAILY JOSE Last Admin: 10/26/17 08:30 Dose: 1 mg Gabapentin (Neurontin) 100 mg PO BID [facility] Last Admin: 10/26/17 08:30 Dose: 100 mg Hydromorphone HCl (Dilaudid) 0.5 mg IVPUSH Q2H PRN PRN Reason: Pain (severe 7-10) Last Admin: 10/26/17 06:14 Dose: 0.5 mg Sodium Chloride (Normal Saline) 1,000 mls @ 125 mls/hr IV ASDIRECTED [facility] Last Admin: 10/26/17 07:54 Dose: 125 mls/hr Magnesium Sulfate 2 gm/ Premix 50 mls @ 25 mls/hr IV ONETIME ONE Stop: 10/26/17 11:29 Lactulose (Chronulac) 10 gm PO BID [facility] Last Admin: 10/26/17 08:30 Dose: 10 gm Levetiracetam (Keppra) 500 mg PO BID [facility] Last Admin: 10/26/17 08:30 Dose: 500 mg Lorazepam (Ativan) 1 mg IV Q6H PRN PRN Reason: Nausea/Vomiting Magnesium Oxide (Magnesium Oxide) 400 mg PO BID [facility] Nicotine Polacrilex (Nicorelief) 2 mg CHEW Q1H PRN PRN Reason: Withdrawal Symptoms Last Admin: 10/26/17 07:09 Dose: 2 mg Ondansetron HCl (Zofran Odt) 4 mg PO Q6H PRN PRN Reason: Nausea able to take PO Ondansetron HCl (Zofran) 4 mg IV Q4H PRN PRN Reason: Nausea/Vomiting Oxycodone HCl (Oxycodone) 5 mg PO Q4H PRN PRN Reason: Pain (moderate 4-6) Last Admin: 10/26/17 08:42 Dose: 5 mg Pantoprazole Sodium (Protonix) 40 mg PO ACBREAKFAST [facility] Last Admin: 10/26/17 08:30 Dose: 40 mg Sodium Chloride (Saline Flush) 10 ml FLUSH ASDIRECTED PRN PRN Reason: Keep Vein Open Last Admin: 10/25/17 20:25 Dose: 10 ml Temazepam (Restoril) 15 mg PO BEDTIME PRN PRN Reason: Sleep Thiamine HCl (Vitamin B-1) 100 mg PO DAILY [facility] Last Admin: 10/26/17 08:30 Dose: 100 mg Trimethoprim/Sulfamethoxazole (Septra Ds) 1 tab PO BID JOSE Discontinued Medications Hydromorphone HCl (Dilaudid) 0.5 mg IVPUSH ONETIME ONE Stop: 10/25/17 20:10 Last Admin: 10/25/17 20:24 Dose: 0.5 mg Ketorolac Tromethamine (Toradol) 30 mg IVPUSH ONETIME ONE Stop: 10/25/17 20:09 Last Admin: 10/25/17 20:24 Dose: 30 mg Methylprednisolone Sodium Succinate (Solu-Medrol) 125 mg IVPUSH ONETIME ONE Stop: 10/25/17 20:10 Last Admin: 10/25/17 20:25 Dose: 125 mg *Q Meaningful Use (DIS) - VTE *Q VTE Criteria *Q: - Stroke *Q Stroke Criteria *Q: - AMI *Q AMI Criteria *Q:
[2017-10-26] MEDS ORDERED: Magnesium Sulfate/Water 2 GM in Premix Bag 1 BAG IV ONE (09:30)
== END 2017-10-26 09:50 | disposition home or self-care (01) ==
LOC: JP.ED 19:45 → JP.MS 22:20
PROVIDERS: ADMIT Internal Medicine; ATTEND Internal Medicine
DX: M51.16 Intervertebral disc disorders with radiculopathy, lumbar region (principal); M99.83 Other biomechanical lesions of lumbar region; G89.29 Other chronic pain; M48.061 Spinal stenosis, lumbar region without neurogenic claudication; I25.10 Atherosclerotic heart disease of native coronary artery without angina pectoris; I25.2 Old myocardial infarction; F41.9 Anxiety disorder, unspecified; F32.9 Major depressive disorder, single episode, unspecified; F17.210 Nicotine dependence, cigarettes, uncomplicated; G40.909 Epilepsy, unspecified, not intractable, without status epilepticus; K74.60 Unspecified cirrhosis of liver; K76.6 Portal hypertension; W18.2XXA Fall in (into) shower or empty bathtub, initial encounter; Z87.19 Personal history of other diseases of the digestive system; Z79.899 Other long term (current) drug therapy; Z91.013 Allergy to seafood; Z88.8 Allergy status to other drugs, medicaments and biological substances; Z91.018 Allergy to other foods; Z87.442 Personal history of urinary calculi; Z86.73 Personal history of transient ischemic attack (TIA), and cerebral infarction without residual deficits; Z95.1 Presence of aortocoronary bypass graft; Z90.49 Acquired absence of other specified parts of digestive tract
CPT/HCPCS: 36415; 80053; 80305; 81001; 82140; 82150; 83690; 83735; 84100; 85025; 85610; 96361; 96374; 96375; 96376; 99284; A9270; G0378; J1170; J1885; J2930; J7040; J7050

== ENCOUNTER 2017-10-28 21:56 | Emergency (ER) | payer MEDICAID ==
--- NOTE | 2017-10-28 23:07 | EDM.PDOC ---
ED HPI GENERAL MEDICAL PROBLEM - General Chief Complaint: Lower Extremity Injury/Pain Stated Complaint: RIGHT HIP AND DOWN LEG PAIN Time Seen by Provider: 10/28/17 22:41 Source of Information: Reports: Patient, RN Notes Reviewed History Limitations: Reports: No Limitations - History of Present Illness INITIAL COMMENTS - FREE TEXT/NARRATIVE: 42-year-old female presents emergency department day complaint of right leg pain she was recently discharged from the hospital on the eighth of this month was evaluated by orthopedic surgery, per notes from orthopedic surgery she was set up with consultation for neurosurgery and anesthesia for epidural injections. However she states the pain is so severe she is unable to sleep or function she was discharged with 20 Percocet enough for 4 days filled on the nin however she only has one tablet remaining right hip/leg Pain Score (Numeric/FACES): 10 - Related Data Allergies Allergy/AdvReac Type Severity Reaction Status Date / Time Fish Containing Products Allergy Severe Airway Verified 10/28/17 22:30 Tightness ziprasidone [From Geodon] Allergy Severe Airway Verified 10/28/17 22:30 Tightness tree nut Allergy Hives Verified 10/28/17 22:30 lamotrigine [From Lamictal] AdvReac Leg Cramps Verified 10/28/17 22:30 msg Allergy Hives Uncoded 10/28/17 22:30 Home Meds: Home Meds Cyanocobalamin (Vitamin B-12) [B-12] 500 mcg PO DAILY 07/29/17 [History] Ferrous Gluconate 324 mg PO DAILY 07/29/17 [History] Folic Acid 1 mg PO DAILY 07/29/17 [History] Gabapentin [Neurontin] 100 mg PO BID 07/29/17 [History] Lactulose 15 ml PO BID 07/29/17 [History] Thiamine [Vitamin B-1] 100 mg PO DAILY 07/29/17 [History] hydrOXYzine Pamoate [Hydroxyzine Pamoate] 25 mg PO TID PRN 07/29/17 [History] levETIRAcetam [Keppra] 500 mg PO BID 07/29/17 [History] Omeprazole 10 mg PO DAILY 10/19/17 [History] Past Medical History HEENT History: Reports: Hard of Hearing, Impaired Vision Cardiovascular History: Reports: CAD, [place], Other (See Below) Other Cardiovascular History: portal hypertension Respiratory History: Reports: Asthma Gastrointestinal History: Reports: Cirrhosis, Other (See Below) Other Gastrointestinal History: ascites, liver disease, cholecystitis, hepatic encephalopathy, stent placed in liver Genitourinary History: Reports: Renal Calculus, Other (See Below) Other Genitourinary History: urethral stent placed that extends to kidney 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) Other OB/BYN History: Irregular montes de oca Musculoskeletal History: Reports: Fracture Other Musculoskeletal History: colar bone Neurological History: Reports: Brain Injury, CVA, Head Trauma, Seizure, Other ( See Below) Other Neuro History: TBI ICH Skull defect Psychiatric History: Reports: Anxiety, Depression, Psych Hospitalization(s), Suicide Attempt Hematologic History: Reports: Blood Transfusion(s), Iron Deficiency, Other (See Below) Other Hematologic History: Hypokelemia, hypomagnesemia, hyponatremia Oncologic (Cancer) History: Reports: Cervix - Infectious Disease History Infectious Disease History: Reports: Chicken Pox, MRSA - Past Surgical History Head Surgeries/Procedures: Reports: None HEENT Surgical History: Reports: None Cardiovascular Surgical History: Reports: Coronary Artery Bypass Respiratory Surgical History: Reports: None GI Surgical History: Reports: Cholecystectomy Female Surgical History: Reports: Other (See Below) Other Female Surgeries/Procedures: removal of abscess from left breast Neurological Surgical History: Reports: None Oncologic Surgical History: Reports: None Dermatological Surgical History: Reports: None Social & Family History - Tobacco Use Smoking Status *Q: Never Smoker Years of Tobacco use: 32 Packs/Tins Daily: 0.5 Used Tobacco, but Quit: No Second Hand Smoke Exposure: No - Caffeine Use Caffeine Use: Reports: Coffee - Recreational Drug Use Recreational Drug Use: No - Living Situation & Occupation Living situation: Reports: Single Occupation: Disabled (lives in Apartment, Sister and Uncle live in same building.) Review of Systems - Review of Systems Review Of Systems: See Below Musculoskeletal: Reports: Leg Pain ED EXAM, GENERAL - Physical Exam Exam: See Below Exam Limited By: No Limitations General Appearance: Alert, WD/WN, No Apparent Distress Throat/Mouth: No Airway Compromise Respiratory/Chest: No Respiratory Distress Course - Vital Signs Last Recorded V/S: Last Vital Signs Temp 98.8 F 10/28/17 22:33 Pulse 102 H 10/28/17 22:33 Resp 16 10/28/17 22:33 BP 153/73 H 10/28/17 22:33 Pulse Ox 99 02/11/18 22:33 Departure - Departure Time of Disposition: 23:07 Disposition: Home, Self-Care 01 Condition: Poor Clinical Impression: Lumbar stenosis without neurogenic claudication, Lumbar radicular pain - Discharge Information Referrals: PCP,None [Primary Care Provider] - Additional Instructions: Use ibuprofen for baseline pain control, use oxycodone for breakthrough pain please call to the orthopedic surgery clinic in the morning to follow-up on your referral to anesthesia for epidural injections - Assessment/Plan Plan: Assessment Acuity = chronic Site and laterality = right leg pain with neural claudication spinal stenosis Etiology = unclear etiology Manifestations = none Location of injury = Home Lab values = none Plan Granted prescription for Percocet 5/325 one tab by mouth 3 times a day when necessary total #10 also set up a consultation with physical therapy she should contact orthopedic surgery's office on Sunday to follow-up on the consultations that were ordered This note was dictated using [employer] voice recognition software please call with any questions on syntax or linette.
== END 2017-10-28 23:22 | disposition home or self-care (01) ==
LOC: JP.ED 21:56
DX: M48.061 Spinal stenosis, lumbar region without neurogenic claudication (principal); I25.2 Old myocardial infarction; Z91.018 Allergy to other foods; Z91.013 Allergy to seafood; Z79.899 Other long term (current) drug therapy
CPT/HCPCS: 99283

== ENCOUNTER 2017-11-03 23:01 | Emergency (ER) | payer MEDICAID ==
--- NOTE | 2017-11-04 01:22 | EDM.PDOCBH ---
ED HPI GENERAL MEDICAL PROBLEM - General Chief Complaint: Behavioral/Psych Stated Complaint: MEDICAL VIA NORTH Time Seen by Provider: 11/03/17 23:27 Source of Information: Reports: Patient, Police History Limitations: Reports: Other (This was a very angry patient and I was only able to get much history after she calmed down) - History of Present Illness INITIAL COMMENTS - FREE TEXT/NARRATIVE: This patient was brought in by law enforcement for psych evaluation. The history is that she had made some comments at home that she didn't want to live and so forth and some people present called 911. The patient's problem is that she has a number of medical problems including dementia prior range surgeries. She says she is in constant pain and nobody will help her. She said she just wants the pain to end. She was questioned at length as to whether or not she wants to kill herself or not. She intubated answering that question until finally I insisted that she answer that one question and finally she did say that no she did not want to kill herself she just wants the pain to go away. See treatment course. There was some history given think it was by EMS that she had been cutting at her hands. - Related Data Allergies Allergy/AdvReac Type Severity Reaction Status Date / Time Fish Containing Products Allergy Severe Airway Verified 11/03/17 23:17 Tightness ziprasidone [From Geodon] Allergy Severe Airway Verified 11/03/17 23:17 Tightness tree nut Allergy Hives Verified 11/03/17 23:17 lamotrigine [From Lamictal] AdvReac Leg Cramps Verified 11/03/17 23:17 msg Allergy Hives Uncoded 10/28/17 22:30 Home Meds: Home Meds Cyanocobalamin (Vitamin B-12) [B-12] 500 mcg PO DAILY 07/29/17 [History] Ferrous Gluconate 324 mg PO DAILY 07/29/17 [History] Folic Acid 1 mg PO DAILY 07/29/17 [History] Gabapentin [Neurontin] 100 mg PO BID 07/29/17 [History] Lactulose 15 ml PO BID 07/29/17 [History] Thiamine [Vitamin B-1] 100 mg PO DAILY 07/29/17 [History] hydrOXYzine Pamoate [Hydroxyzine Pamoate] 25 mg PO TID PRN 07/29/17 [History] levETIRAcetam [Keppra] 500 mg PO BID 07/29/17 [History] Omeprazole 10 mg PO DAILY 10/19/17 [History] Past Medical History HEENT History: Reports: Hard of Hearing, Impaired Vision Cardiovascular History: Reports: CAD, [place], Other (See Below) Other Cardiovascular History: portal hypertension Respiratory History: Reports: Asthma Gastrointestinal History: Reports: Cirrhosis, Other (See Below) Other Gastrointestinal History: ascites, liver disease, cholecystitis, hepatic encephalopathy, stent placed in liver Genitourinary History: Reports: Renal Calculus, Other (See Below) Other Genitourinary History: urethral stent placed that extends to kidney 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) Other OB/BYN History: Irregular montes de oca Musculoskeletal History: Reports: Fracture Other Musculoskeletal History: colar bone Neurological History: Reports: Brain Injury, CVA, Head Trauma, Seizure, Other ( See Below) Other Neuro History: TBI ICH Skull defect Psychiatric History: Reports: Anxiety, Depression, Psych Hospitalization(s), Suicide Attempt Hematologic History: Reports: Blood Transfusion(s), Iron Deficiency, Other (See Below) Other Hematologic History: Hypokelemia, hypomagnesemia, hyponatremia Oncologic (Cancer) History: Reports: Cervix - Infectious Disease History Infectious Disease History: Reports: Chicken Pox, MRSA - Past Surgical History Head Surgeries/Procedures: Reports: None HEENT Surgical History: Reports: None Cardiovascular Surgical History: Reports: Coronary Artery Bypass Respiratory Surgical History: Reports: None GI Surgical History: Reports: Cholecystectomy Female Surgical History: Reports: Other (See Below) Other Female Surgeries/Procedures: removal of abscess from left breast Neurological Surgical History: Reports: None Oncologic Surgical History: Reports: None Dermatological Surgical History: Reports: None Social & Family History - Tobacco Use Smoking Status *Q: Current Every Day Smoker Years of Tobacco use: 22 Packs/Tins Daily: 0.5 Used Tobacco, but Quit: No Second Hand Smoke Exposure: No - Caffeine Use Caffeine Use: Reports: Coffee - Recreational Drug Use Recreational Drug Use: No - Living Situation & Occupation Living situation: Reports: Single Occupation: Disabled (lives in Apartment, Sister and Uncle live in same building.) ED ROS GENERAL - Review of Systems Review Of Systems: ROS reveals no pertinent complaints other than HPI. ED EXAM, BEHAVIORAL HEALTH - Physical Exam Exam: See Below Exam Limited By: No Limitations General Appearance: Alert, Other (She looks chronically ill and she is very angry yelling at people that they are holding her against her will and so forth. She does not appear to be intoxicated or under the influence of any drugs ) Eye Exam: Bilateral Eye: Normal Inspection Respiratory/Chest: Lungs Clear Cardiovascular: Regular Rate, Rhythm Extremities: Other (I did not see any kind of damage to her hands or fingers) Neurological: Alert, Other (See above) Psychiatric: Other (She is very angry but I did manage to calm her down. I don' t think she is depressed. I don't think she is suicidal.) Skin Exam: Warm, Dry COURSE, BEHAVIORAL HEALTH COMP - Course Vital Signs: Last Vital Signs Temp 37.0 C 11/03/17 23:19 Pulse 99 11/03/17 23:03 Resp 18 11/03/17 23:19 BP 144/75 H 11/03/17 23:03 Pulse Ox 98 11/03/17 23:03 Orders, Labs, Meds: Laboratory Tests 11/03/17 11/03/17 11/03/17 Range/Units 00:06 00:06 00:06 WBC 7.9 (4.5-11.0) K/uL RBC 4.26 (3.30-5.50) M/uL Hgb 12.4 (12.0-15.0) g/dL Hct 38.0 (36.0-48.0) % MCV 89 (80-98) fL MCH 29 (27-31) pg MCHC 33 (32-36) % Plt Count 133 L (150-400) K/uL Neut % (Auto) 45 (36-66) % Lymph % (Auto) 39 (24-44) % [place] % (Auto) 12 H (2-6) % Eos % (Auto) 3 (2-4) % Baso % (Auto) 1 (0-1) % Sodium 145 (140-148) mmol/L Potassium 4.0 (3.6-5.2) mmol/L Chloride 114 H (100-108) mmol/L Carbon Dioxide 23 (21-32) mmol/L Anion Gap 12.0 (5.0-14.0) mmol/L BUN 12 (7-18) mg/dL Creatinine 1.0 (0.6-1.0) mg/dL Est Cr Clr Drug Dosing 56.78 mL/min Estimated GFR (MDRD) > 60 (>60) Glucose 116 H (74-106) mg/dL Calcium 8.7 (8.5-10.1) mg/dL Total Bilirubin 0.6 (0.2-1.0) mg/dL AST 29 (15-37) U/L ALT 28 (12-78) U/L Alkaline Phosphatase 148 H (46-116) U/L Total Protein 6.5 (6.4-8.2) g/dL Albumin 3.0 L (3.4-5.0) g/dL Globulin 3.5 (2.3-3.5) g/dL Albumin/Globulin Ratio 0.9 L (1.2-2.2) Salicylates (2.0-20.0) mg/dL Acetaminophen 0.0 L (10.0-30.0) ug/mL Ethyl Alcohol < 3 mg/dL 11/03/17 Range/Units 23:50 WBC (4.5-11.0) K/uL RBC (3.30-5.50) M/uL Hgb (12.0-15.0) g/dL Hct (36.0-48.0) % MCV (80-98) fL MCH (27-31) pg MCHC (32-36) % Plt Count (150-400) K/uL Neut % (Auto) (36-66) % Lymph % (Auto) (24-44) % [place] % (Auto) (2-6) % Eos % (Auto) (2-4) % Baso % (Auto) (0-1) % Sodium (140-148) mmol/L Potassium (3.6-5.2) mmol/L Chloride (100-108) mmol/L Carbon Dioxide (21-32) mmol/L Anion Gap (5.0-14.0) mmol/L BUN (7-18) mg/dL Creatinine (0.6-1.0) mg/dL Est Cr Clr Drug Dosing mL/min Estimated GFR (MDRD) (>60) Glucose (74-106) mg/dL Calcium (8.5-10.1) mg/dL Total Bilirubin (0.2-1.0) mg/dL AST (15-37) U/L ALT (12-78) U/L Alkaline Phosphatase (46-116) U/L Total Protein (6.4-8.2) g/dL Albumin (3.4-5.0) g/dL Globulin (2.3-3.5) g/dL Albumin/Globulin Ratio (1.2-2.2) Salicylates 0.8 L (2.0-20.0) mg/dL Acetaminophen (10.0-30.0) ug/mL Ethyl Alcohol mg/dL Departure - Departure Time of Disposition: 01:16 Disposition: Home, Self-Care 01 Condition: Fair (She's 5 signatures no marrow is with her side) Clinical Impression: Self-harm - Discharge Information Instructions: Suicidal Feelings: How to Help Yourself Referrals: PCP,None [Primary Care Provider] - Forms: ED Department Discharge Additional Instructions: By signing this paper you are promising that you will not try to harm yourself. If you do feel like harming yourself then you should either call 911 or asked someone else to make that call for you. Otherwise you should follow-up with your regular doctor as planned.
== END 2017-11-04 01:35 | disposition home or self-care (01) ==
LOC: JP.ED 23:01
DX: R45.4 Irritability and anger (principal); K76.6 Portal hypertension; I25.10 Atherosclerotic heart disease of native coronary artery without angina pectoris; J45.909 Unspecified asthma, uncomplicated; F17.210 Nicotine dependence, cigarettes, uncomplicated; Z85.41 Personal history of malignant neoplasm of cervix uteri; Z95.1 Presence of aortocoronary bypass graft; Z79.899 Other long term (current) drug therapy; Z91.013 Allergy to seafood; Z91.018 Allergy to other foods; Z88.8 Allergy status to other drugs, medicaments and biological substances
CPT/HCPCS: 36415; 80053; 85025; 99285; G0480

== ENCOUNTER 2017-11-06 03:09 | Emergency (ER) | payer MEDICAID ==
[2017-11-06] MEDS ORDERED: Morphine 4 MG/ML Syringe IM ONE (04:11)
[2017-11-06] MEDS ORDERED: Cyclobenzaprine 10 MG Tab PO ONE (04:11)
[2017-11-06] MEDS ORDERED: predniSONE 20 MG Tab PO ONE (04:11)
--- NOTE | 2017-11-06 04:18 | EDM.PDOC ---
ED HPI GENERAL MEDICAL PROBLEM - General Chief Complaint: Lower Extremity Injury/Pain Stated Complaint: MEDICAL VIA NORTH Time Seen by Provider: 11/06/17 03:32 Source of Information: Reports: Patient, EMS, Old Records, RN Notes Reviewed History Limitations: Reports: No Limitations - History of Present Illness INITIAL COMMENTS - FREE TEXT/NARRATIVE: EMS arrival Chief complaint Right hip and leg pain History of present illness 42-year-old female with a history of head injury/traumatic brain injury who fell September 17, injured her right hip. X-rays and MRI negative for fracture but she does have bulging disks and probable neuropathy. Reports that she's had pain shooting all the way down to her foot as well as numbness. Difficulty walking and moving around, weakness in the right leg Has been seen by orthopedics and upcoming therapeutic steroid injections are planned. Several visits to emergency because of the pain She states it's getting worse. Reports that she's having difficulties getting around although at a recent emergency room visit where she was evaluated for psychiatric reason she walked out of the department without difficulty. She uses a walker states she is having greater difficulty moving with it. He is not interested in rehabilitation bed, she was in a rehabilitation bed "after my stroke, and they treated me very badly" "It needs to get fixed" No incontinence No fever Pain aggravated by movement History of alcohol abuse alcohol related liver disease including portal hypertension and cirrhosis, asthma, coronary disease with myocardial infarction and bypass kidney stone anxiety and depression. Right Leg Pain Score (Numeric/FACES): 10 - Related Data Allergies Allergy/AdvReac Type Severity Reaction Status Date / Time Fish Containing Products Allergy Severe Airway Verified 11/03/17 23:17 Tightness ziprasidone [From Geodon] Allergy Severe Airway Verified 11/03/17 23:17 Tightness tree nut Allergy Hives Verified 11/03/17 23:17 lamotrigine [From Lamictal] AdvReac Leg Cramps Verified 11/03/17 23:17 msg Allergy Hives Uncoded 10/28/17 22:30 Home Meds: Home Meds Cyanocobalamin (Vitamin B-12) [B-12] 500 mcg PO DAILY 07/29/17 [History] Ferrous Gluconate 324 mg PO DAILY 07/29/17 [History] Folic Acid 1 mg PO DAILY 07/29/17 [History] Gabapentin [Neurontin] 100 mg PO BID 07/29/17 [History] Lactulose 15 ml PO BID 07/29/17 [History] Thiamine [Vitamin B-1] 100 mg PO DAILY 07/29/17 [History] hydrOXYzine Pamoate [Hydroxyzine Pamoate] 25 mg PO TID PRN 07/29/17 [History] levETIRAcetam [Keppra] 500 mg PO BID 07/29/17 [History] Omeprazole 10 mg PO DAILY 10/19/17 [History] Folic Acid/Multivit-Minerals [Women's Multivitamin Gummies] 200 mcg PO DAILY [History] Past Medical History HEENT History: Reports: Hard of Hearing, Impaired Vision Cardiovascular History: Reports: CAD, [place], Other (See Below) Other Cardiovascular History: portal hypertension Respiratory History: Reports: Asthma Gastrointestinal History: Reports: Cirrhosis, Other (See Below) Other Gastrointestinal History: ascites, liver disease, cholecystitis, hepatic encephalopathy, stent placed in liver Genitourinary History: Reports: Renal Calculus, Other (See Below) Other Genitourinary History: urethral stent placed that extends to kidney 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) Other OB/BYN History: Irregular montes de oca Musculoskeletal History: Reports: Fracture Other Musculoskeletal History: colar bone Neurological History: Reports: Brain Injury, CVA, Head Trauma, Seizure, Other ( See Below) Other Neuro History: TBI ICH Skull defect Psychiatric History: Reports: Anxiety, Depression, Psych Hospitalization(s), Suicide Attempt Hematologic History: Reports: Blood Transfusion(s), Iron Deficiency, Other (See Below) Other Hematologic History: Hypokelemia, hypomagnesemia, hyponatremia Oncologic (Cancer) History: Reports: Cervix - Infectious Disease History Infectious Disease History: Reports: Chicken Pox - Past Surgical History HEENT Surgical History: Reports: None Cardiovascular Surgical History: Reports: Coronary Artery Bypass Respiratory Surgical History: Reports: None GI Surgical History: Reports: Cholecystectomy Female Surgical History: Reports: Other (See Below) Other Female Surgeries/Procedures: removal of abscess from left breast Neurological Surgical History: Reports: None Oncologic Surgical History: Reports: None Social & Family History - Family History Family Medical History: Noncontributory - Tobacco Use Smoking Status *Q: Current Every Day Smoker Years of Tobacco use: 25 Packs/Tins Daily: 0.2 Used Tobacco, but Quit: No Second Hand Smoke Exposure: No - Caffeine Use Caffeine Use: Reports: Coffee - Recreational Drug Use Recreational Drug Use: No - Living Situation & Occupation Living situation: Reports: Single Occupation: Disabled (lives in Apartment, Sister and Uncle live in same building.) Review of Systems - Review of Systems Review Of Systems: ROS reveals no pertinent complaints other than HPI. Musculoskeletal: Reports: Leg Pain (Right leg involving the whole leg). Denies : Back Pain Skin: Reports: Mottled (Reports mottling of her right foot) Neurological: Reports: Numbness (Whole of the right leg from the hip down), Difficulty Walking (Uses walker) Psychiatric: Reports: Depression ED EXAM, GENERAL - Physical Exam Exam: See Below Exam Limited By: Other (Limited movement because of her right leg pain) General Appearance: Alert, Anxious, Moderate Distress, Other (Afebrile, normal pulse, mild elevation pressure normal breathing) Head: Atraumatic, Normocephalic Respiratory/Chest: No Respiratory Distress, No Accessory Muscle Use Cardiovascular: Normal Peripheral Pulses, Regular Rate, Rhythm, Other ( Including pulses to feet and capillary refill normal) Extremities: Normal Inspection, No Pedal Edema, Leg Pain, Other (Hyperesthetic to touch or movement of her right leg). No: Joint Swelling, Mottled Neurological: Alert, Oriented Psychiatric: Anxious, Depressed Mood, Tearful Skin Exam: Warm, Dry, Intact, Normal Color, No Rash Course - Vital Signs Last Recorded V/S: Last Vital Signs Temp 36.3 C 11/06/17 03:12 Pulse 86 11/06/17 03:12 Resp 18 11/06/17 03:12 BP 154/78 H 11/06/17 03:12 Pulse Ox 100 11/06/17 03:12 - Orders/Labs/Meds Meds: Medications Discontinued Medications Generic Name Dose Route Start Last Admin Trade Name Freq PRN Reason Stop Dose Admin Cyclobenzaprine HCl 10 mg 11/06/17 04:11 11/06/17 04:19 Flexeril PO 11/06/17 04:12 10 mg ONETIME ONE Administration Morphine Sulfate 6 mg 11/06/17 04:11 11/06/17 04:18 Morphine IM 11/06/17 04:12 6 mg ONETIME ONE Administration Prednisone 40 mg 11/06/17 04:11 11/06/17 04:19 Prednisone PO 11/06/17 04:12 40 mg ONETIME ONE Administration - Re-Assessments/Exams Free Text/Narrative Re-Assessment/Exam: 11/06/17 04:18 42-year-old female with leg pain since she fell September 17 This is over 7 weeks now. This is not a new condition, she has been investigated, there are no new symptoms but the intensity of pain is worsening Some of the pain is inconsistent and she may have more than one process going on. Limited ability of emergency to be able to help her Follow-up with primary care and with orthopedics as needed. However she could benefit from pain relief States Toradol does nothing for her despite what is reported in previous emergency room visits For pain relief, Flexeril 10 mg by mouth, prednisone 40 mg by mouth and morphine 6 mg IM will be prescribed a muscle relaxer and prednisone but if she needs a renewal of pain medicine she needs to get this to primary care or her regular treating physicians 11/06/17 04:46 Reports some improvement at this time We'll discharge with prescriptions for prednisone and cyclobenzaprine Follow-up primary care for pain medicines in addition if needed Follow-up with orthopedics Departure - Departure Time of Disposition: 05:00 Disposition: Home, Self-Care 01 Condition: Undetermined Clinical Impression: Right sided sciatica, Muscle spasm of right leg, Lumbar disc herniation with myelopathy - Discharge Information Instructions: Sciatica, [id number], Muscle Cramps and Spasms, [id number] Referrals: PCP,None [Primary Care Provider] - Forms: ED Department Discharge Additional Instructions: Keep your appointment with orthopedics as arranged Contact her physician for further management of your pain as we cannot renew pain medications in emergency
== END 2017-11-06 05:14 | disposition home or self-care (01) ==
LOC: JP.ED 03:09
DX: M51.06 Intervertebral disc disorders with myelopathy, lumbar region (principal); M54.41 Lumbago with sciatica, right side; M62.838 Other muscle spasm; F17.210 Nicotine dependence, cigarettes, uncomplicated; Z91.013 Allergy to seafood; Z91.018 Allergy to other foods; Z88.8 Allergy status to other drugs, medicaments and biological substances; Z79.899 Other long term (current) drug therapy
CPT/HCPCS: 96374; 99284; A9270; J2270

== ENCOUNTER 2017-11-07 08:42 | Emergency (ER) | payer MEDICAID ==
[2017-11-07] MEDS: HYDROmorphone 1 MG/ML Syringe IM ONE (09:43)
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
== END 2017-11-07 10:31 | disposition home or self-care (01) ==
LOC: JP.ED 08:42
DX: M54.5 Low back pain (principal); G89.29 Other chronic pain; I25.2 Old myocardial infarction; I10 Essential (primary) hypertension; Z91.013 Allergy to seafood; Z91.018 Allergy to other foods; Z91.048 Other nonmedicinal substance allergy status; Z88.8 Allergy status to other drugs, medicaments and biological substances; Z79.899 Other long term (current) drug therapy
CPT/HCPCS: 80305; 96372; 99284; J1170

== ENCOUNTER 2017-11-07 16:34 | Emergency (ER) | payer MEDICAID ==
--- NOTE | 2017-11-07 16:48 | EDM.PDOCBH ---
<Rui George G - Last Filed: 11/08/17 13:01> ED HPI GENERAL MEDICAL PROBLEM - General Chief Complaint: Behavioral/Psych Stated Complaint: R LEG/HIP PAIN Time Seen by Provider: 11/07/17 16:44 Source of Information: Reports: Patient, Old Records, Provider History Limitations: Reports: No Limitations - History of Present Illness INITIAL COMMENTS - FREE TEXT/NARRATIVE: 42 yo female with chronic pain was here in the ER earlier today alleging that her back pain was worse after an epidural. She got Dilaudid 1 mg IM. She told us she had a 1 pm appt in the clinic with her provider this afternoon. When her primary care provider at that appt indicated she was not going to supply her with narcotics the patient threatened suicide. Dr. Ramirez has now referred Cris back to the ER to find psych placement for her suicide ideation. Was in the ER recently and seen by Dr. Saab for suicidal ideation. She went home from the ER that day. Officers here in the ER today say she's threatened suicide in their presence as well. Onset: Unknown/Unsure Duration: Waxing/Waning Location: Reports: Head Quality: Reports: Other (not clear if she is actually suicidal, or more likely using these threats as manipulation to get narcotics from various sources. 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: Reports: Other (see below) (Had Dilaudid 1 mg IM earlier today.) Right Hip Pain Score (Numeric/FACES): 9 - Related Data Allergies Allergy/AdvReac Type Severity Reaction Status Date / Time Fish Containing Products Allergy Severe Airway Verified 11/07/17 18:27 Tightness ziprasidone [From Geodon] Allergy Severe Airway Verified 11/07/17 18:27 Tightness tree nut Allergy Hives Verified 11/07/17 18:27 lamotrigine [From Lamictal] AdvReac Leg Cramps Verified 11/07/17 18:27 msg Allergy Hives Uncoded 11/07/17 08:57 Home Meds: Home Meds Cyanocobalamin (Vitamin B-12) [B-12] 500 mcg PO DAILY 07/29/17 [History] Ferrous Gluconate 324 mg PO DAILY 07/29/17 [History] Folic Acid 1 mg PO DAILY 07/29/17 [History] Gabapentin [Neurontin] 100 mg PO BID 07/29/17 [History] Lactulose 15 ml PO BID 07/29/17 [History] Thiamine [Vitamin B-1] 100 mg PO DAILY 07/29/17 [History] hydrOXYzine Pamoate [Hydroxyzine Pamoate] 25 mg PO TID PRN 07/29/17 [History] levETIRAcetam [Keppra] 500 mg PO BID 07/29/17 [History] Omeprazole 10 mg PO DAILY 10/19/17 [History] Cyclobenzaprine [Flexeril] 10 mg PO TID PRN #12 tab 11/06/17 [Rx] predniSONE 40 mg PO WITHBREAKFAST #10 tab 11/06/17 [Rx] Past Medical History HEENT History: Reports: Hard of Hearing, Impaired Vision Cardiovascular History: Reports: CAD, [place], Other (See Below) Other Cardiovascular History: portal hypertension Respiratory History: Reports: Asthma Gastrointestinal History: Reports: Cirrhosis, Other (See Below) Other Gastrointestinal History: ascites, liver disease, cholecystitis, hepatic encephalopathy, stent placed in liver Genitourinary History: Reports: Renal Calculus, Other (See Below) Other Genitourinary History: urethral stent placed that extends to kidney 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: Reports: Other (See Below) Other OB/BYN History: Irregular [place] Musculoskeletal History: Reports: Fracture Other Musculoskeletal History: colar bone Neurological History: Reports: Brain Injury, CVA, Head Trauma, Seizure, Other ( See Below) Other Neuro History: TBI ICH Skull defect Psychiatric History: Reports: Anxiety, Depression, Psych Hospitalization(s), Suicide Attempt Hematologic History: Reports: Blood Transfusion(s), Iron Deficiency, Other (See Below) Other Hematologic History: Hypokelemia, hypomagnesemia, hyponatremia Oncologic (Cancer) History: Reports: Cervix - Infectious Disease History Infectious Disease History: Reports: MRSA - Past Surgical History HEENT Surgical History: Reports: None Cardiovascular Surgical History: Reports: Coronary Artery Bypass Respiratory Surgical History: Reports: None GI Surgical History: Reports: Cholecystectomy Female Surgical History: Reports: Other (See Below) Other Female Surgeries/Procedures: removal of abscess from left breast Neurological Surgical History: Reports: None Oncologic Surgical History: Reports: None Dermatological Surgical History: Reports: None Social & Family History - Family History Family Medical History: Noncontributory - Tobacco Use Smoking Status *Q: Unknown Ever Smoked Years of Tobacco use: 25 Packs/Tins Daily: 0.2 Used Tobacco, but Quit: No Second Hand Smoke Exposure: No - Caffeine Use Caffeine Use: Reports: Coffee - Recreational Drug Use Recreational Drug Use: No - Living Situation & Occupation Living situation: Reports: Single Occupation: Disabled (lives in Apartment, Sister and Uncle live in same building.) ED ROS GENERAL - Review of Systems Review Of Systems: See Below Constitutional: Reports: No Symptoms HEENT: Reports: No Symptoms Respiratory: Reports: No Symptoms Cardiovascular: Reports: No Symptoms GI/Abdominal: Reports: No Symptoms : Reports: No Symptoms Musculoskeletal: Reports: Back Pain (chronic) Skin: Reports: No Symptoms ED EXAM, BEHAVIORAL HEALTH - Physical Exam Exam: See Below Exam Limited By: No Limitations General Appearance: Alert, WD/WN, No Apparent Distress, Other (combative initially when she found out she was going to be retrained in the ER to assess her suicidality.) Eye Exam: Bilateral Eye: Normal Inspection Ears: Normal External Exam, Normal Canal, Hearing Grossly Normal Nose: Normal Inspection, Normal Mucosa, No Blood Throat/Mouth: Normal Inspection, Normal Lips, Normal Oropharynx, Normal Voice, No Airway Compromise Head: Other (Cranial deformities from injury/surgery.) Neck: Normal Inspection, Non-Tender Respiratory/Chest: No Respiratory Distress, Lungs Clear, Normal Breath Sounds, No Accessory Muscle Use Cardiovascular: Regular Rate, Rhythm, No Edema GI/Abdominal: Normal Bowel Sounds, Soft, Non-Tender, No Distention Back Exam: Normal Inspection. No: CVA Tenderness (R), CVA Tenderness (L) Extremities: Normal Inspection, Normal Range of Motion, Non-Tender Neurological: Alert, Normal Mood/Affect, CN II-XII Intact, Normal Cognition, No Motor/Sensory Deficits, Oriented x 3 Psychiatric: Alert, Normal Affect, Normal Cognition, Agitated, Uncooperative Skin Exam: Warm, Dry, Intact, Normal color, No rash COURSE, BEHAVIORAL HEALTH COMP - Course Vital Signs: Last Vital Signs Temp 36.7 C 11/09/17 18:57 Pulse 87 11/09/17 18:57 Resp 14 11/09/17 18:57 BP 128/67 11/09/17 18:57 Pulse Ox 100 11/09/17 18:57 Orders, Labs, Meds: Laboratory Tests 11/07/17 11/07/17 11/07/17 Range/Units 16:42 16:42 16:42 WBC 9.2 (4.5-11.0) K/uL RBC 4.08 (3.30-5.50) M/uL Hgb 11.8 L (12.0-15.0) g/dL Hct 36.2 (36.0-48.0) % MCV 89 (80-98) fL MCH 29 (27-31) pg MCHC 33 (32-36) % Plt Count 123 L (150-400) K/uL Sodium 140 (140-148) mmol/L Potassium 3.7 (3.6-5.2) mmol/L Chloride 107 (100-108) mmol/L Carbon Dioxide 22 (21-32) mmol/L Anion Gap 11.1 (5.0-14.0) mmol/L BUN 16 (7-18) mg/dL Creatinine 0.9 (0.6-1.0) mg/dL Est Cr Clr Drug Dosing TNP Estimated GFR (MDRD) > 60 (>60) Glucose 77 (74-106) mg/dL Calcium 9.2 (8.5-10.1) mg/dL TSH, Ultra Sensitive (0.358-3.740) uIU/mL Urine Color Urine Appearance Urine pH (4.5-8.0) Ur Specific [place] (1.008-1.030) Urine Protein (NEGATIVE) mg/dL Urine Glucose (UA) (NEGATIVE) mg/dL Urine Ketones (NEGATIVE) mg/dL Urine Occult Blood (NEGATIVE) Urine Nitrite (NEGATIVE) Urine Bilirubin (NEGATIVE) Urine Urobilinogen (NORMAL) mg/dL Ur Leukocyte Esterase (NEGATIVE) Urine RBC (0-5) Urine WBC (0-5) Ur Epithelial Cells Amorphous Sediment Urine Bacteria Urine Mucus Urine HCG, Qual Salicylates (2.0-20.0) mg/dL Urine Opiates Screen (NEGATIVE) Ur Oxycodone Screen (NEGATIVE) Urine Methadone Screen (NEGATIVE) Ur Propoxyphene Screen (NEGATIVE) Acetaminophen 0.0 L (10.0-30.0) ug/mL Ur Barbiturates Screen (NEGATIVE) Ur Tricyclics Screen (NEGATIVE) Ur Phencyclidine Scrn (NEGATIVE) Ur Amphetamine Screen (NEGATIVE) U Methamphetamines Scrn (NEGATIVE) Urine MDMA Screen (NEGATIVE) U Benzodiazepines Scrn (NEGATIVE) U Cocaine Metab Screen (NEGATIVE) U Marijuana (THC) Screen (NEGATIVE) Ethyl Alcohol mg/dL 11/07/17 11/07/17 11/07/17 Range/Units 16:42 16:42 16:42 WBC (4.5-11.0) K/uL RBC (3.30-5.50) M/uL Hgb (12.0-15.0) g/dL Hct (36.0-48.0) % MCV (80-98) fL MCH (27-31) pg MCHC (32-36) % Plt Count (150-400) K/uL Sodium (140-148) mmol/L Potassium (3.6-5.2) mmol/L Chloride (100-108) mmol/L Carbon Dioxide (21-32) mmol/L Anion Gap (5.0-14.0) mmol/L BUN (7-18) mg/dL Creatinine (0.6-1.0) mg/dL Est Cr Clr Drug Dosing Estimated GFR (MDRD) (>60) Glucose (74-106) mg/dL Calcium (8.5-10.1) mg/dL TSH, Ultra Sensitive 1.677 (0.358-3.740) uIU/mL Urine Color Urine Appearance Urine pH (4.5-8.0) Ur Specific [place] (1.008-1.030) Urine Protein (NEGATIVE) mg/dL Urine Glucose (UA) (NEGATIVE) mg/dL Urine Ketones (NEGATIVE) mg/dL Urine Occult Blood (NEGATIVE) Urine Nitrite (NEGATIVE) Urine Bilirubin (NEGATIVE) Urine Urobilinogen (NORMAL) mg/dL Ur Leukocyte Esterase (NEGATIVE) Urine RBC (0-5) Urine WBC (0-5) Ur Epithelial Cells Amorphous Sediment Urine Bacteria Urine Mucus Urine HCG, Qual Salicylates 0.3 L (2.0-20.0) mg/dL Urine Opiates Screen (NEGATIVE) Ur Oxycodone Screen (NEGATIVE) Urine Methadone Screen (NEGATIVE) Ur Propoxyphene Screen (NEGATIVE) Acetaminophen (10.0-30.0) ug/mL Ur Barbiturates Screen (NEGATIVE) Ur Tricyclics Screen (NEGATIVE) Ur Phencyclidine Scrn (NEGATIVE) Ur Amphetamine Screen (NEGATIVE) U Methamphetamines Scrn (NEGATIVE) Urine MDMA Screen (NEGATIVE) U Benzodiazepines Scrn (NEGATIVE) U Cocaine Metab Screen (NEGATIVE) U Marijuana (THC) Screen (NEGATIVE) Ethyl Alcohol < 3 mg/dL 11/07/17 11/07/17 11/08/17 Range/Units 18:22 18:45 21:24 WBC (4.5-11.0) K/uL RBC (3.30-5.50) M/uL Hgb (12.0-15.0) g/dL Hct (36.0-48.0) % MCV (80-98) fL MCH (27-31) pg MCHC (32-36) % Plt Count (150-400) K/uL Sodium (140-148) mmol/L Potassium (3.6-5.2) mmol/L Chloride (100-108) mmol/L Carbon Dioxide (21-32) mmol/L Anion Gap (5.0-14.0) mmol/L BUN (7-18) mg/dL Creatinine (0.6-1.0) mg/dL Est Cr Clr Drug Dosing Estimated GFR (MDRD) (>60) Glucose (74-106) mg/dL Calcium (8.5-10.1) mg/dL TSH, Ultra Sensitive (0.358-3.740) uIU/mL Urine Color Yellow Urine Appearance Cloudy Urine pH 6.0 (4.5-8.0) Ur Specific [place] 1.020 (1.008-1.030) Urine Protein Negative (NEGATIVE) mg/dL Urine Glucose (UA) Normal (NEGATIVE) mg/dL Urine Ketones Negative (NEGATIVE) mg/dL Urine Occult Blood Trace (NEGATIVE) Urine Nitrite Negative (NEGATIVE) Urine Bilirubin Negative (NEGATIVE) Urine Urobilinogen Normal (NORMAL) mg/dL Ur Leukocyte Esterase Small (NEGATIVE) Urine RBC 0-5 (0-5) Urine WBC 20-30 H (0-5) Ur Epithelial Cells Rare Amorphous Sediment Not seen Urine Bacteria Many Urine Mucus Rare Urine HCG, Qual Negative Salicylates (2.0-20.0) mg/dL Urine Opiates Screen Positive H (NEGATIVE) Ur Oxycodone Screen Positive H (NEGATIVE) Urine Methadone Screen Negative (NEGATIVE) Ur Propoxyphene Screen Negative (NEGATIVE) Acetaminophen (10.0-30.0) ug/mL Ur Barbiturates Screen Negative (NEGATIVE) Ur Tricyclics Screen Negative (NEGATIVE) Ur Phencyclidine Scrn Negative (NEGATIVE) Ur Amphetamine Screen Negative (NEGATIVE) U Methamphetamines Scrn Negative (NEGATIVE) Urine MDMA Screen Negative (NEGATIVE) U Benzodiazepines Scrn Negative (NEGATIVE) U Cocaine Metab Screen Negative (NEGATIVE) U Marijuana (THC) Screen Negative (NEGATIVE) Ethyl Alcohol mg/dL Medications Discontinued Medications Generic Name Dose Route Start Last Admin Trade Name Freq PRN Reason Stop Dose Admin Cyclobenzaprine HCl 5 mg 11/08/17 14:00 11/09/17 14:17 Flexeril PO 5 mg TID JOSE Administration Diphenhydramine HCl 25 mg 11/07/17 17:22 11/07/17 18:51 Benadryl IM 11/07/17 17:23 25 mg ONETIME STA Administration Diphenhydramine HCl 50 mg 11/08/17 13:04 Benadryl IM 11/08/17 13:05 ONETIME ONE Gabapentin 100 mg 11/08/17 11:15 11/09/17 14:16 Neurontin PO 100 mg BID JOSE Administration Gabapentin 300 mg 11/09/17 21:00 Neurontin PO BID JOSE Gabapentin 200 mg 11/09/17 17:15 11/09/17 17:04 Neurontin PO 11/09/17 17:16 200 mg ONETIME ONE Administration Haloperidol Lactate 4 mg 11/07/17 17:21 11/07/17 18:51 Haldol IM 11/07/17 17:22 4 mg ONETIME STA Administration Haloperidol Lactate 5 mg 11/08/17 13:03 Haldol IM 11/08/17 13:04 ONETIME ONE Ketorolac Tromethamine 60 mg 11/09/17 16:56 11/09/17 17:03 Toradol IM 11/09/17 16:57 60 mg ONETIME ONE Administration Levetiracetam 500 mg 11/08/17 11:15 11/08/17 12:55 Keppra PO 500 mg BID JOSE Administration Levetiracetam 500 mg 11/09/17 09:00 11/09/17 14:18 Keppra PO 500 mg BID JOSE Administration Lorazepam 1 mg 11/07/17 17:23 11/07/17 18:51 Ativan IM 11/07/17 17:24 1 mg ONETIME STA Administration Lorazepam 1 mg 11/08/17 13:04 Ativan IM 11/08/17 13:05 ONETIME ONE Magnesium Oxide 800 mg 11/07/17 17:58 11/07/17 20:54 Magnesium Oxide PO 11/07/17 17:59 800 mg ONETIME ONE Administration Magnesium Oxide Confirm 11/07/17 20:52 11/07/17 21:09 Magnesium Oxide Administered 11/07/17 20:53 Not Given Dose 800 mg .ROUTE .STK-MED ONE Magnesium Oxide 400 mg 11/08/17 09:00 11/09/17 14:19 Magnesium Oxide PO 400 mg DAILY JOSE Administration Nitrofurantoin Macrocrystals 100 mg 11/08/17 09:00 11/09/17 14:15 Macrobid PO 100 mg BID JOSE Administration Tramadol HCl 50 mg 11/09/17 16:41 Ultram PO 11/09/17 16:42 ONETIME ONE Departure - Departure Disposition: Home, Self-Care 01 Condition: Good Clinical Impression: Verbalizes suicidal thoughts Chronic pain Qualifiers: Chronic pain type: chronic pain syndrome Qualified Code(s): G89.4 - Chronic pain syndrome - Discharge Information Instructions: Suicidal Feelings: How to Help Yourself, Chronic Pain, Adult Referrals: Vicky Ramirez MD [Primary Care Provider] - Forms: ED Department Discharge Additional Instructions: Continue your regular medications, please follow-up with your primary care in the next 3-5 days for reevaluation, call or return to the emergency department worsening of symptoms <OfficerDeshawn - Last Filed: 11/09/17 19:17> COURSE, BEHAVIORAL HEALTH COMP - Course Re-Assessment/Re-Exam: Took over care from Dr. Gasca at 1900, patient was up ambulating to the bathroom communicative with the nursing staff, was cooperative at that time. Crisis team here to evaluate about 2300 hrs. patient is not cooperative will not arouse for crisis team to evaluate Departure - Departure Time of Disposition: 19:21 Condition: Fair - Assessment/Plan Plan: Assessment Acuity = acute Site and laterality = suicidal ideation complicated in a patient with history of head trauma chronic back pain with recent steroid injections to the back. Etiology = unclear etiology possibly related to pain control issues and prior head injury Manifestations = none Location of injury = Home Lab values = CBC, CMP unremarkable urinalysis does reveal 10-20 WBCs consistent pyuria, beta-hCG is negative urine drug screen positive for opiates for alcohol Plan Initial evaluation by crisis team did recommend inpatient psychiatric treatment for suicidal ideation however we had difficulty with placement she has been in the emergency department now for about 72 hours a hold was placed by Dr. Gasca per recommendations of crisis team. She is calm at this time her demeanor has changed significantly she's pleasant and cooperative admits that she said things that she shouldn't have admits secondary to her head injury she does get upset easily. Therefore I sought a second opinion from Dr. De La Torre psychiatry please see his notes for details she was interviewed by Dr. De La Torre via telemedicine in his opinion she is safe to go home will be discharged to custody of her sister keep her regular follow-up appointments with primary care and counseling This note was dictated using [employer] voice recognition software please call with any questions on syntax or linette. <Susana Godinez - Last Filed: 11/10/17 09:31> COURSE, BEHAVIORAL HEALTH COMP - Course Medical Clearance: 11/09/17 08:38 pt continues to have a somewhat uncooperative attituds. Placement has not been accmoplished. 11/09/17 16:30 pt is requesting a evaluation to reassess her suicidal threats. She claimes she did get very upset because no one was willing to help her with her pain until she could be evaluated in [place] by A back surgeon. She has got a very bad looking Mri with nerve root compression. She Is not someone who has been in and out of the Er looking for pain meds until she started having the severe back pain. She has had alot of other major medical problems in her life and did not come in repeatedly.Pt has had epidurals and she states that they actually made the pain worse. She is scheduled for Pt and she hopes to keep that appt. She hopes still to see the back surgeon and if surgery is her only answer then she is willing to do that. 11/09/17 16:45 a DECISION WAS MADE TO GET A CONSULT FROM dR De La Torre REGARDING WHETHER THE 72 HOUR HOLD CAN BE LIFTED. 11/10/17 09:30
[2017-11-07] MEDS ORDERED: Haloperidol Lactate 5 MG/ML SDV IM STA (17:21)
[2017-11-07] MEDS ORDERED: diphenhydrAMINE 50 MG/ML SDV IM STA (17:22)
[2017-11-07] MEDS ORDERED: LORazepam 2 MG/ML SDV IM STA (17:23)
[2017-11-07] MEDS ORDERED: Magnesium Oxide 400 MG Tab PO ONE (17:58)
[2017-11-07] MEDS ORDERED: Magnesium Oxide 400 MG Tab ONE (20:52)
[2017-11-08] MEDS: Nitrofurantoin Monohydrate/Macrocrystalline 100 MG Cap PO SCH ×2 (08:23→22:34)
[2017-11-08] MEDS: Magnesium Oxide 400 MG Tab PO SCH (08:23)
[2017-11-08] MEDS ORDERED: levETIRAcetam 500 MG/5 ML Solution ML 473 ml Bottle PO SCH (11:15)
[2017-11-08] MEDS: Gabapentin 100 MG Cap PO SCH ×2 (12:55→22:34)
[2017-11-08] MEDS ORDERED: Haloperidol Lactate 5 MG/ML SDV IM ONE (13:03)
[2017-11-08] MEDS ORDERED: diphenhydrAMINE 50 MG/ML SDV IM ONE (13:04)
[2017-11-08] MEDS ORDERED: LORazepam 2 MG/ML SDV IM ONE (13:04)
[2017-11-08] MEDS: Cyclobenzaprine 10 MG Tab PO SCH ×2 (13:17→22:34)
[2017-11-09] MEDS ORDERED: levETIRAcetam 250 MG Tab PO SCH (09:00)
[2017-11-09] MEDS: Nitrofurantoin Monohydrate/Macrocrystalline 100 MG Cap PO SCH (14:15)
[2017-11-09] MEDS: Gabapentin 100 MG Cap PO SCH (14:16)
[2017-11-09] MEDS: Cyclobenzaprine 10 MG Tab PO SCH (14:17)
[2017-11-09] MEDS: Magnesium Oxide 400 MG Tab PO SCH (14:19)
[2017-11-09] MEDS ORDERED: traMADol 50 MG Tab PO ONE (16:41)
[2017-11-09] MEDS ORDERED: Ketorolac 60 MG/2 ML SDV IM ONE (16:56)
[2017-11-09] MEDS ORDERED: Gabapentin 100 MG Cap PO ONE (17:15)
[2017-11-09] MEDS ORDERED: Gabapentin 300 MG Cap PO SCH (21:00)
--- NOTE | 2017-11-13 08:59 | CONS ---
DATE OF SERVICE: 11/09/2017 REFERRING PHYSICIAN: CONSULTING PHYSICIAN: Shady De La Torre MD 60-minute Emergency Room Clinical Event. IDENTIFICATION: The patient is a 42-year-old female, who is presenting to the Emergency Room at [facility] in [place], [place]. She is seen for psychiatric evaluation. CHIEF COMPLAINT: "I came here to get help with my pain.I never said I would kill myself." HISTORY OF PRESENT ILLNESS: The patient is a 42-year-old female, who reports that she originally presented to the emergency room at [facility] in [place], [place], because she was struggling with severe back pain, after receiving some shots that were to help reduce her pain, but instead "were excruciating" to the patient afterwards. The patient was looking for help, and she states that she got very frustrated and she states, "I just don't deal with pain very well." The patient is also reporting that she had a stroke back in 2016 and "they had to do emergency surgery on me." States that she had what appears to be evacuation or a craniotomy at that time. She states that she has noticed that, since she had this neurologic event, it is harder for her to keep her calm in situations where she gets frustrated. That said, the patient is adamantly denying that she is suicidal or homicidal, stating "I definitely don't want to kill myself. I would never do anything like that. I have too much to live for." She also denies that she is psychiatrically delusional or paranoid. She states that she has been sober for over 2 years from alcohol and denies any excessive alcohol use or illicit substance use complicating her clinical picture at this time. She is on seizure medications for seizures, but denies any seizure activity in quite a while. At this point in time, the patient would like to be discharged from the ER and followup with her regular outpatient provider and neurologist to see if she can get a better handle on her pain and also talk to her neurologist about any medications that might help her with impulse control going forward. She states her sister will come and pick her up, and she lives next to her sister in an apartment in [place], [place] and across the street from her uncle, so she has good family support going forward. MEDICATIONS: At the time of presentation: 1. Keppra. 2. Hydroxyzine. 3. Thiamine supplements. 4. Neurontin. 5. Flexeril. ALLERGIES: 1. GEODON, WHICH CAUSES AIRWAY TIGHTNESS. 2. LAMICTAL, WHICH CAUSES LEG CRAMPS AND PRURITUS. PAST MEDICAL HISTORY: 1. Status post stroke in 2016. 2. Status post PA. 3. History of cirrhosis. 4. History of seizures as a sequela to stroke. REVIEW OF SYSTEMS: Aside from neuro, cardiovascular, and GI, all other major organ systems are negative at this point in time for acute difficulties or complications. FAMILY PSYCHIATRIC AND CD HISTORY: The patient reports maternal uncles had a history of bipolar affective disease and ADHD and mother had a history of clinical depression. PAST PSYCHIATRIC AND CD HISTORY: The patient reports past psychiatric hospitalizations, but none recently. Reports 14 chemical dependency treatments for alcohol. States she has been sober x2 years from alcohol. Doing what appears to be a 12-step based self-guided program. She reports some suicide attempts by overdose in the past, but states this was while she was still using alcohol. Denies any recent suicide attempts. SOCIAL HISTORY: The patient was born and raised in [facility]. She spent time in [place], [place] and then also has been living in [facility]. 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 She has been x1, but from her for many years without having a formal divorce. She has been in a current relationship for 7 years with boyfriend, who works at [employer] and at [employer], and he lives over in [place]. She is currently living in [place] in an apartment next to her sister and across from her uncle. She has 6 biological children, one is . She is [employer] in terms of her erica formation. MENTAL STATUS EXAM: The patient is a 42-year-old white female in no apparent distress. Speech is regular rate and rhythm. The patient is cognitively oriented. Psychomotor activity is within normal limits. There are no abnormal motor movements or tics observed. Gait and station are not observed, as the patient is seated on a gurney at the time of emergency room consult. Mood is frustrated over her current situation, but okay overall. Affect is cooperative overall for the purposes of the emergency room consult. There is no behavioral or stated evidence of acute suicidal or homicidal ideation or acute psychiatric delusional or paranoid symptoms. Thought processes are appear organized. There are no manic symptoms or loose associations evident. Judgement and insight appear unimpaired at this point in time. Motivation for help appears good. PHYSICAL EXAMINATION: VITAL SIGNS: 128/67, 87, 14, 98.1 degrees. IMPRESSION: [place] I: 1. Depression, not otherwise specified, F33.9. 2. Rule out bipolar affective disease, mixed type. 3. Rule out cognitive and mood changes secondary to stroke in 2016. [place] II: Rule out personality changes secondary to stroke in 2016. [place] III: 1. Status post stroke in 2016. 2. Status post myocardial infarction. 3. History of seizures in past as a sequela to stroke. 4. History of cirrhosis. [place] IV: Severe. [place] V: 65. PLAN: 1. The patient may be discharged back to community under the care of her sister, if she is medically stable, if she does not appear to be a danger to herself or others at this point in time and, from a psychiatric standpoint, does not appear holdable or in need of treatment at the moment. 2. I recommend the patient followup with outpatient care provider and Neurology to assess her current medication regimen to see if it needs adjusting or to help with pain control and impulse control. 3. We will continue to follow up with patient on an as needed basis while she remains in the emergency room at [facility] in [place], [place] on an as needed basis. 4. We will follow up with patient sooner if there are any complications. 5. Crisis plan is in place. Shady De La Torre MD /[id number]
== END 2017-11-09 19:36 | disposition home or self-care (01) ==
LOC: JP.ED 16:34
DX: R45.851 Suicidal ideations (principal); M54.9 Dorsalgia, unspecified; G89.4 Chronic pain syndrome; Z91.013 Allergy to seafood; Z91.018 Allergy to other foods; Z88.8 Allergy status to other drugs, medicaments and biological substances; Z79.899 Other long term (current) drug therapy; M48.061 Spinal stenosis, lumbar region without neurogenic claudication; M54.5 Low back pain; G89.29 Other chronic pain; I25.2 Old myocardial infarction; I10 Essential (primary) hypertension; Z91.048 Other nonmedicinal substance allergy status
CPT/HCPCS: 36415; 62322; 80048; 80305; 81001; 81025; 84443; 85027; 87086; 87088; 87186; 96372; 99284; A9270; G0480; J1040; J1170; J1200; J1630; J1885; J2060; Q3014

== ENCOUNTER 2017-11-18 23:51 | Emergency (ER) | payer MEDICAID ==
--- NOTE | 2017-11-19 01:41 | EDM.PDOC ---
ED HPI GENERAL MEDICAL PROBLEM - General Chief Complaint: Neck Problem Stated Complaint: MEDICAL VIA [facility] - FALL Time Seen by Provider: 11/19/17 00:16 Source of Information: Reports: Patient History Limitations: Reports: No Limitations - History of Present Illness INITIAL COMMENTS - FREE TEXT/NARRATIVE: This patient arrived by EMS. She was walking around at home using her walker when she apparently lost her balance and fell backwards. She said she hit her head on the ground and complains of neck pain. She thinks maybe she passed out. She herself called 911. She still complains of neck pain. Neck Pain Score (Numeric/FACES): 8 - Related Data Allergies Allergy/AdvReac Type Severity Reaction Status Date / Time Fish Containing Products Allergy Severe Airway Verified 11/07/17 18:27 Tightness ziprasidone [From Geodon] Allergy Severe Airway Verified 11/07/17 18:27 Tightness tree nut Allergy Hives Verified 11/07/17 18:27 lamotrigine [From Lamictal] AdvReac Leg Cramps Verified 11/07/17 18:27 msg Allergy Hives Uncoded 11/07/17 08:57 Home Meds: Home Meds Cyanocobalamin (Vitamin B-12) [B-12] 500 mcg PO DAILY 07/29/17 [History] Ferrous Gluconate 324 mg PO DAILY 07/29/17 [History] Folic Acid 1 mg PO DAILY 07/29/17 [History] Gabapentin [Neurontin] 100 mg PO BID 07/29/17 [History] Lactulose 15 ml PO BID 07/29/17 [History] Thiamine [Vitamin B-1] 100 mg PO DAILY 07/29/17 [History] hydrOXYzine Pamoate [Hydroxyzine Pamoate] 25 mg PO TID PRN 07/29/17 [History] levETIRAcetam [Keppra] 500 mg PO BID 07/29/17 [History] Omeprazole 10 mg PO DAILY 10/19/17 [History] Cyclobenzaprine [Flexeril] 10 mg PO TID PRN #12 tab 11/06/17 [Rx] Past Medical History HEENT History: Reports: Hard of Hearing, Impaired Vision Cardiovascular History: Reports: CAD, CT, Other (See Below) Other Cardiovascular History: portal hypertension Respiratory History: Reports: Asthma Gastrointestinal History: Reports: Cirrhosis, Other (See Below) Other Gastrointestinal History: ascites, liver disease, cholecystitis, hepatic encephalopathy, stent placed in liver Genitourinary History: Reports: Renal Calculus, Other (See Below) Other Genitourinary History: urethral stent placed that extends to kidney SHUTTLE HAND History: Reports: Other (See Below) Other OB/BYN History: Irregular [place] Musculoskeletal History: Reports: Fracture Other Musculoskeletal History: colar bone Neurological History: Reports: Brain Injury, CVA, Head Trauma, Seizure, Other ( See Below) Other Neuro History: TBI ICH Skull defect Psychiatric History: Reports: Anxiety, Depression, Psych Hospitalization(s), Suicide Attempt Hematologic History: Reports: Blood Transfusion(s), Iron Deficiency, Other (See Below) Other Hematologic History: Hypokelemia, hypomagnesemia, hyponatremia Oncologic (Cancer) History: Reports: Cervix - Infectious Disease History Infectious Disease History: Reports: MRSA - Past Surgical History Head Surgeries/Procedures: Reports: None HEENT Surgical History: Reports: None Cardiovascular Surgical History: Reports: Coronary Artery Bypass Respiratory Surgical History: Reports: None GI Surgical History: Reports: Cholecystectomy Female Surgical History: Reports: Other (See Below) Other Female Surgeries/Procedures: removal of abscess from left breast Neurological Surgical History: Reports: None Oncologic Surgical History: Reports: None Dermatological Surgical History: Reports: None Social & Family History - Family History Family Medical History: Noncontributory - Tobacco Use Smoking Status *Q: Light Tobacco Smoker Years of Tobacco use: 30 Packs/Tins Daily: 0.2 Used Tobacco, but Quit: No Second Hand Smoke Exposure: No - Caffeine Use Caffeine Use: Reports: None - Recreational Drug Use Recreational Drug Use: No - Living Situation & Occupation Living situation: Reports: Single Occupation: Disabled (lives in Apartment, Sister and Uncle live in same building.) ED ROS GENERAL - Review of Systems Review Of Systems: ROS reveals no pertinent complaints other than HPI. ED EXAM, UPPER BACK/NECK PAIN - Physical Exam Exam: See Below Exam Limited By: No Limitations General Appearance: Alert, Mild Distress (She's complaining of neck pain. She has on a [place] collar.) Eye Exam: Bilateral Eye: EOMI, Normal Inspection, PERRL Throat/Mouth Exam: Normal Inspection Head Exam: Other (She has surgical changes with the right anterior parietal area being miss shape and) Neck Exam: Other (After CT the c-collar was removed and she has good range of motion of the neck. Neck has no midline tenderness) Cardiovascular/Respiratory: Regular Rate, Rhythm GI/Abdominal: Non-Tender Extremities: Normal Inspection Neurologic: No Motor/Sensory Deficits, Normal Mood/Affect Course - Vital Signs Last Recorded V/S: Last Vital Signs Temp 35.5 C 11/19/17 00:03 Pulse 97 11/19/17 00:03 Resp 16 11/19/17 00:03 BP 160/88 H 11/19/17 00:03 Pulse Ox 97 11/19/17 00:03 - Orders/Labs/Meds Orders: Active Orders 24 hr Category Date Time Status Cervical Spine wo Cont [CT] Stat Exams 11/19/17 00:25 Taken Head wo Cont [CT] Stat Exams 11/19/17 00:25 Taken - Re-Assessments/Exams Free Text/Narrative Re-Assessment/Exam: 11/19/17 05:37 this lady it was initially complaining of a lot of pain in her neck. She was asking for pain medications. I told her that I was not going to give her any pain medications. After returning from CT I went in to examine her and she was sleeping. And on awakening she seemed to be pain-free. The collar was removed and her neck was examined. She does not appear to need any kind of pain medications Departure - Departure Time of Disposition: 01:39 Disposition: Home, Self-Care 01 Condition: Fair Clinical Impression: Neck strain, Minor head injury - Discharge Information Referrals: PCP,None [Primary Care Provider] - Forms: ED Department Discharge Additional Instructions: There is no evidence of any kind of a neck fracture or acute head injury. Continue all your usual medications. Follow-up with your for any more problems - My Orders Last 24 Hours: My Active Orders 11/19/17 00:25 Cervical Spine wo Cont [CT] Stat Head wo Cont [CT] Stat - Assessment/Plan Last 24 Hours: My Active Orders 11/19/17 00:25 Cervical Spine wo Cont [CT] Stat Head wo Cont [CT] Stat
== END 2017-11-19 01:45 | disposition home or self-care (01) ==
LOC: JP.ED 23:51
DX: S09.90XA Unspecified injury of head, initial encounter (principal); S16.1XXA Strain of muscle, fascia and tendon at neck level, initial encounter; F17.210 Nicotine dependence, cigarettes, uncomplicated; Z91.013 Allergy to seafood; Z88.8 Allergy status to other drugs, medicaments and biological substances; Z91.018 Allergy to other foods; Z79.899 Other long term (current) drug therapy; W01.10XA Fall on same level from slipping, tripping and stumbling with subsequent striking against unspecified object, initial encounter; Y93.01 Activity, walking, marching and hiking; Y92.009 Unspecified place in unspecified non-institutional (private) residence as the place of occurrence of the external cause
CPT/HCPCS: 70450; 72125; 99284-25

== ENCOUNTER 2017-11-20 06:18 | Emergency (ER) | payer MEDICAID ==
--- NOTE | 2017-11-20 07:07 | EDM.PDOC ---
<Rojelio Arvizu - Last Filed: 11/20/17 07:02> ED HPI GENERAL MEDICAL PROBLEM - General Chief Complaint: General Stated Complaint: MEDICAL VIA [facility] Time Seen by Provider: 11/20/17 06:45 Source of Information: Reports: Patient, Old Records, RN Notes Reviewed History Limitations: Reports: Uncooperative, Other (Possible malingering possible drug abuse) - History of Present Illness INITIAL COMMENTS - FREE TEXT/NARRATIVE: EMS arrival Chief complaint Found down on the floor, "unresponsive" History of present illness 42-year-old female who has her own apartment but is frequently seen in emergency for primarily complaints of pain related to her back in her right hip. History of traumatic brain injury, seizure disorder, anxiety Frequently complains that "no one will help me" States she's had many falls, refusing to move from her apartment into a facility with higher level of care States she is very tired took an [id number] sleep medication last night Also complaining of pain - Related Data Allergies Allergy/AdvReac Type Severity Reaction Status Date / Time Fish Containing Products Allergy Severe Airway Verified 11/07/17 18:27 Tightness ziprasidone [From Geodon] Allergy Severe Airway Verified 11/07/17 18:27 Tightness tree nut Allergy Hives Verified 11/07/17 18:27 lamotrigine [From Lamictal] AdvReac Leg Cramps Verified 11/07/17 18:27 msg Allergy Hives Uncoded 11/07/17 08:57 Home Meds: Home Meds Cyanocobalamin (Vitamin B-12) [B-12] 500 mcg PO DAILY 07/29/17 [History] Ferrous Gluconate 324 mg PO DAILY 07/29/17 [History] Folic Acid 1 mg PO DAILY 07/29/17 [History] Gabapentin [Neurontin] 100 mg PO BID 07/29/17 [History] Lactulose 15 ml PO BID 07/29/17 [History] Thiamine [Vitamin B-1] 100 mg PO DAILY 07/29/17 [History] hydrOXYzine Pamoate [Hydroxyzine Pamoate] 25 mg PO TID PRN 07/29/17 [History] levETIRAcetam [Keppra] 500 mg PO BID 07/29/17 [History] Omeprazole 10 mg PO DAILY 10/19/17 [History] Cyclobenzaprine [Flexeril] 10 mg PO TID PRN #12 tab 11/06/17 [Rx] Past Medical History HEENT History: Reports: Hard of Hearing, Impaired Vision Cardiovascular History: Reports: CAD, [place], Other (See Below) Other Cardiovascular History: portal hypertension Respiratory History: Reports: Asthma Gastrointestinal History: Reports: Cirrhosis, Other (See Below) Other Gastrointestinal History: ascites, liver disease, cholecystitis, hepatic encephalopathy, stent placed in liver Genitourinary History: Reports: Renal Calculus, Other (See Below) Other Genitourinary History: urethral stent placed that extends to kidney ANESTHESIA RESIDENT History: Reports: Other (See Below) Other OB/BYN History: Irregular [place] Musculoskeletal History: Reports: Fracture Other Musculoskeletal History: colar bone Neurological History: Reports: Brain Injury, CVA, Head Trauma, Seizure, Other ( See Below) Other Neuro History: TBI ICH Skull defect Psychiatric History: Reports: Anxiety, Depression, Psych Hospitalization(s), Suicide Attempt Hematologic History: Reports: Blood Transfusion(s), Iron Deficiency, Other (See Below) Other Hematologic History: Hypokelemia, hypomagnesemia, hyponatremia Oncologic (Cancer) History: Reports: Cervix - Infectious Disease History Infectious Disease History: Reports: MRSA - Past Surgical History Head Surgeries/Procedures: Reports: None HEENT Surgical History: Reports: None Cardiovascular Surgical History: Reports: Coronary Artery Bypass Respiratory Surgical History: Reports: None GI Surgical History: Reports: Cholecystectomy Female Surgical History: Reports: Other (See Below) Other Female Surgeries/Procedures: removal of abscess from left breast Neurological Surgical History: Reports: None Oncologic Surgical History: Reports: None Dermatological Surgical History: Reports: None Social & Family History - Family History Family Medical History: Noncontributory - Tobacco Use Smoking Status *Q: Light Tobacco Smoker Years of Tobacco use: 30 Packs/Tins Daily: 0.2 Used Tobacco, but Quit: No Second Hand Smoke Exposure: No - Caffeine Use Caffeine Use: Reports: Coffee - Recreational Drug Use Recreational Drug Use: Yes - Living Situation & Occupation Living situation: Reports: Single Occupation: Disabled (lives in Apartment, Sister and Uncle live in same building.) ED ROS GENERAL - Review of Systems Review Of Systems: Unable To Obtain (Patient quite drowsy slurring her words, altered level of consciousness) ED EXAM, GENERAL - Physical Exam Exam: See Below Exam Limited By: Other (Odor of alcohol noted on her breath) General Appearance: Lethargic, Other (Slurred speech but rales by shaking her body, vital signs show mild elevation of systolic blood pressure otherwise normal, no difficulty breathing, maintaining her airway) Eye Exam: Bilateral Eye: Normal Inspection Ears: Normal External Exam Nose: Normal Inspection Respiratory/Chest: No Respiratory Distress, No Accessory Muscle Use Cardiovascular: Normal Peripheral Pulses, Regular Rate, Rhythm GI/Abdominal: Non-Tender Back Exam: Other (Not fully examined, complaining of pain in her back and in her legs as per her chronic pain) Extremities: No Pedal Edema Neurological: Slow to Respond, Other (Cranial deformity from previous injury) Skin Exam: Warm, Dry, Normal Color Lymphatic: No Adenopathy Course - Vital Signs Last Recorded V/S: Last Vital Signs Temp 95.7 F 11/20/17 11:44 Pulse 95 11/20/17 11:44 Resp 16 11/20/17 11:44 BP 145/85 H 11/20/17 11:44 Pulse Ox 97 11/20/17 11:44 - Re-Assessments/Exams Free Text/Narrative Re-Assessment/Exam: 11/20/17 07:06 42-year-old female with chronic medical problems including posttraumatic brain injury, seizure disorder, chronic pain and difficulty coping on her own, somewhat vulnerable but refuses to move from her current environment. Found with decreased responsiveness on the floor at her apartment. Does rouse and is not exhibiting any signs of delirium. We'll also rest until she is more alert and coherent and can be discharged home. Transferred to care of Dr. Del Real Departure - Departure Disposition: Home, Self-Care 01 Clinical Impression: Mental status change resolved Alcohol intoxication Qualifiers: Complication of substance-induced condition: uncomplicated Qualified Code(s): F10.920 - Alcohol use, unspecified with intoxication, uncomplicated - Discharge Information Instructions: Alcohol Intoxication, [id number] Referrals: PCP,None [Primary Care Provider] - Forms: ED Department Discharge Care Plan Goals: Continue your medications as prescribed, avoid alcohol in the future, especially mixed with sleeping medications. <Moses Del Real - Last Filed: 11/20/17 14:05> Course - Re-Assessments/Exams Free Text/Narrative Re-Assessment/Exam: 11/20/17 08:03 Patient rested quietly over the next hour, was alert enough to push the nurse call light several times. Discharged without treatment. Departure - Departure Time of Disposition: 13:29 Condition: Good
== END 2017-11-20 12:45 | disposition home or self-care (01) ==
LOC: JP.ED 06:18
DX: F10.120 Alcohol abuse with intoxication, uncomplicated (principal); R41.82 Altered mental status, unspecified; F17.210 Nicotine dependence, cigarettes, uncomplicated; Z91.013 Allergy to seafood; Z88.8 Allergy status to other drugs, medicaments and biological substances; Z79.899 Other long term (current) drug therapy
CPT/HCPCS: 99285

== ENCOUNTER 2017-11-28 16:04 | Emergency (ER) | payer MEDICAID ==
--- NOTE | 2017-11-28 16:46 | EDM.PDOC ---
ED HPI GENERAL MEDICAL PROBLEM - General Chief Complaint: Lower Extremity Injury/Pain Stated Complaint: FALL VIA NORTH Time Seen by Provider: 11/28/17 16:30 Source of Information: Reports: Patient, EMS History Limitations: Reports: Intoxication - History of Present Illness INITIAL COMMENTS - FREE TEXT/NARRATIVE: 42-year-old female arrives by ambulance from falling, she is very intoxicated. She says her legs are weak, she has a UTI for "5 months" and she wants everything fixed. I had to wake her up when I went into the room as she was basically passed out. Onset: Unknown/Unsure Severity: Moderate Associated Symptoms: Reports: Malaise, Weakness Left Leg Pain Score (Numeric/FACES): 10 - Related Data Allergies Allergy/AdvReac Type Severity Reaction Status Date / Time Fish Containing Products Allergy Severe Airway Verified 11/28/17 18:36 Tightness ziprasidone [From Geodon] Allergy Severe Airway Verified 11/28/17 18:36 Tightness tree nut Allergy Hives Verified 11/28/17 18:36 lamotrigine [From Lamictal] AdvReac Leg Cramps Verified 11/28/17 18:36 msg Allergy Hives Uncoded 11/28/17 16:16 Home Meds: Home Meds Cyanocobalamin (Vitamin B-12) [B-12] 500 mcg PO DAILY 07/29/17 [History] Ferrous Gluconate 324 mg PO DAILY 07/29/17 [History] Folic Acid 1 mg PO DAILY 07/29/17 [History] Gabapentin [Neurontin] 100 mg PO BID 07/29/17 [History] Lactulose 15 ml PO BID 07/29/17 [History] Thiamine [Vitamin B-1] 100 mg PO DAILY 07/29/17 [History] hydrOXYzine Pamoate [Hydroxyzine Pamoate] 25 mg PO TID PRN 07/29/17 [History] levETIRAcetam [Keppra] 500 mg PO BID 07/29/17 [History] Omeprazole 10 mg PO DAILY 10/19/17 [History] Cyclobenzaprine [Flexeril] 10 mg PO TID PRN #12 tab 11/06/17 [Rx] Past Medical History HEENT History: Reports: Hard of Hearing, Impaired Vision Cardiovascular History: Reports: CAD, [place], Other (See Below) Other Cardiovascular History: portal hypertension Respiratory History: Reports: Asthma Gastrointestinal History: Reports: Cirrhosis, Other (See Below) Other Gastrointestinal History: ascites, liver disease, cholecystitis, hepatic encephalopathy, stent placed in liver Genitourinary History: Reports: Renal Calculus, Other (See Below) Other Genitourinary History: urethral stent placed that extends to kidney RN CASE MGR History: Reports: Other (See Below) Other OB/BYN History: Irregular [place] Musculoskeletal History: Reports: Fracture Other Musculoskeletal History: colar bone Neurological History: Reports: Brain Injury, CVA, Head Trauma, Seizure, Other ( See Below) Other Neuro History: TBI ICH Skull defect Psychiatric History: Reports: Anxiety, Depression, Psych Hospitalization(s), Suicide Attempt Hematologic History: Reports: Blood Transfusion(s), Iron Deficiency, Other (See Below) Other Hematologic History: Hypokelemia, hypomagnesemia, hyponatremia Oncologic (Cancer) History: Reports: Cervix - Infectious Disease History Infectious Disease History: Reports: MRSA - Past Surgical History Head Surgeries/Procedures: Reports: None HEENT Surgical History: Reports: None Cardiovascular Surgical History: Reports: Coronary Artery Bypass Respiratory Surgical History: Reports: None GI Surgical History: Reports: Cholecystectomy Female Surgical History: Reports: Other (See Below) Other Female Surgeries/Procedures: removal of abscess from left breast Neurological Surgical History: Reports: None Oncologic Surgical History: Reports: None Dermatological Surgical History: Reports: None Social & Family History - Family History Family Medical History: Noncontributory - Tobacco Use Smoking Status *Q: Light Tobacco Smoker Years of Tobacco use: 30 Packs/Tins Daily: 0.2 Used Tobacco, but Quit: No Second Hand Smoke Exposure: No - Caffeine Use Caffeine Use: Reports: Coffee - Alcohol Use Date of Last Drink: 11/28/17 - Recreational Drug Use Recreational Drug Use: Yes - Living Situation & Occupation Living situation: Reports: Single Occupation: Disabled (lives in Apartment, Sister and Uncle live in same building.) Review of Systems - Review of Systems Review Of Systems: Unable To Obtain (Very intoxicated, inconsistent with answers ) Genitourinary: Reports: Other (Has had a UTI for "5 months") ED EXAM, GENERAL - Physical Exam Exam: See Below Exam Limited By: Uncooperative General Appearance: Lethargic Eye Exam: Bilateral Eye: PERRL Head: Other (Right cranial defect from prior surgery) Respiratory/Chest: No Respiratory Distress, Lungs Clear Cardiovascular: Regular Rate, Rhythm Extremities: Other (Moving spontaneously without asymmetry) Skin Exam: Warm, Dry Course - Vital Signs Last Recorded V/S: Last Vital Signs Temp 97.9 F 11/28/17 16:13 Pulse 98 11/28/17 17:34 Resp 16 11/28/17 16:13 BP 121/86 11/28/17 17:34 Pulse Ox 95 11/28/17 16:13 - Orders/Labs/Meds Labs: Laboratory Tests 11/28/17 11/28/17 11/28/17 Range/Units 16:44 16:44 16:44 WBC 6.3 (4.5-11.0) K/uL RBC 4.19 (3.30-5.50) M/uL Hgb 12.5 (12.0-15.0) g/dL Hct 37.8 (36.0-48.0) % MCV 90 (80-98) fL MCH 30 (27-31) pg MCHC 33 (32-36) % Plt Count 108 L (150-400) K/uL Neut % (Auto) 30 L (36-66) % Lymph % (Auto) 53 H (24-44) % Jones % (Auto) 11 H (2-6) % Eos % (Auto) 6 H (2-4) % Baso % (Auto) 1 (0-1) % Sodium 152 H (140-148) mmol/L Potassium 3.6 (3.6-5.2) mmol/L Chloride 116 H (100-108) mmol/L Carbon Dioxide 28 (21-32) mmol/L Anion Gap 11.6 (5.0-14.0) mmol/L BUN 13 (7-18) mg/dL Creatinine 0.8 (0.6-1.0) mg/dL Est Cr Clr Drug Dosing 74.23 mL/min Estimated GFR (MDRD) > 60 (>60) Glucose 93 (74-106) mg/dL Calcium 8.9 (8.5-10.1) mg/dL Urine Color Urine Appearance Urine pH (4.5-8.0) Ur Specific [place] (1.008-1.030) Urine Protein (NEGATIVE) mg/dL Urine Glucose (UA) (NEGATIVE) mg/dL Urine Ketones (NEGATIVE) mg/dL Urine Occult Blood (NEGATIVE) Urine Nitrite (NEGATIVE) Urine Bilirubin (NEGATIVE) Urine Urobilinogen (NORMAL) mg/dL Ur Leukocyte Esterase (NEGATIVE) Urine RBC (0-5) Urine WBC (0-5) Ur Epithelial Cells Amorphous Sediment Urine Bacteria Urine Mucus Ethyl Alcohol 267 mg/dL 11/28/17 Range/Units 16:54 WBC (4.5-11.0) K/uL RBC (3.30-5.50) M/uL Hgb (12.0-15.0) g/dL Hct (36.0-48.0) % MCV (80-98) fL MCH (27-31) pg MCHC (32-36) % Plt Count (150-400) K/uL Neut % (Auto) (36-66) % Lymph % (Auto) (24-44) % Jones % (Auto) (2-6) % Eos % (Auto) (2-4) % Baso % (Auto) (0-1) % Sodium (140-148) mmol/L Potassium (3.6-5.2) mmol/L Chloride (100-108) mmol/L Carbon Dioxide (21-32) mmol/L Anion Gap (5.0-14.0) mmol/L BUN (7-18) mg/dL Creatinine (0.6-1.0) mg/dL Est Cr Clr Drug Dosing mL/min Estimated GFR (MDRD) (>60) Glucose (74-106) mg/dL Calcium (8.5-10.1) mg/dL Urine Color Yellow Urine Appearance Slightly cloudy Urine pH 7.0 (4.5-8.0) Ur Specific [place] 1.015 (1.008-1.030) Urine Protein Negative (NEGATIVE) mg/dL Urine Glucose (UA) Normal (NEGATIVE) mg/dL Urine Ketones Negative (NEGATIVE) mg/dL Urine Occult Blood Trace (NEGATIVE) Urine Nitrite Negative (NEGATIVE) Urine Bilirubin Negative (NEGATIVE) Urine Urobilinogen Normal (NORMAL) mg/dL Ur Leukocyte Esterase Moderate (NEGATIVE) Urine RBC Not seen (0-5) Urine WBC 0-5 (0-5) Ur Epithelial Cells Not seen Amorphous Sediment Not seen Urine Bacteria Few Urine Mucus Not seen Ethyl Alcohol mg/dL - Re-Assessments/Exams Free Text/Narrative Re-Assessment/Exam: CBC and chemistry profile were basically normal other than a very mildly elevated sodium. Blood alcohol repeat return 0.267. Patient was allowed to sleep for 45 minutes, when she woke up she wanted something done about her chronic leg pain. She also is claiming she's having difficulty walking. I told her to go home and sober up and if she was still having difficulty walking she should tell her regular doctor. Departure - Departure Time of Disposition: 18:37 Disposition: Home, Self-Care 01 Condition: Fair Clinical Impression: Weakness Alcohol intoxication Qualifiers: Complication of substance-induced condition: uncomplicated Qualified Code(s): F10.920 - Alcohol use, unspecified with intoxication, uncomplicated - Discharge Information Instructions: Alcohol Intoxication, [id number] Referrals: PCP,None [Primary Care Provider] - Forms: ED Department Discharge Care Plan Goals: Avoid alcohol in the future and stay as active as possible. Recheck with your primary doctor if not improving over the next few days to get scheduled for a physical therapy evaluation.
== END 2017-11-28 18:15 | disposition home or self-care (01) ==
LOC: JP.ED 16:04
DX: F10.120 Alcohol abuse with intoxication, uncomplicated (principal); R53.1 Weakness; F17.210 Nicotine dependence, cigarettes, uncomplicated; J45.909 Unspecified asthma, uncomplicated; Z91.013 Allergy to seafood; Z88.8 Allergy status to other drugs, medicaments and biological substances; Z91.018 Allergy to other foods; Z79.899 Other long term (current) drug therapy; Y90.8 Blood alcohol level of 240 mg/100 ml or more
CPT/HCPCS: 36415; 80048; 81001; 85025; 99284; G0480

== ENCOUNTER 2017-12-06 23:55 | Emergency (ER) | payer MEDICAID ==
[2017-12-07] MEDS ORDERED: Ketorolac 30 MG/ML SDV IM ONE (00:12)
--- NOTE | 2017-12-07 00:17 | EDM.PDOC ---
ED HPI GENERAL MEDICAL PROBLEM - General Chief Complaint: General Stated Complaint: FALL VIA NORTH Time Seen by Provider: 12/07/17 00:05 Source of Information: Reports: Patient, EMS History Limitations: Reports: No Limitations - History of Present Illness INITIAL COMMENTS - FREE TEXT/NARRATIVE: 42 yo female fell in her kitchen tonight with resulting pain to her low back, R hip, and R ankle. Arrives via EMS. Lives alone. 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: Other (see below) (none) right hip/leg Pain Score (Numeric/FACES): 9 - Related Data Allergies Allergy/AdvReac Type Severity Reaction Status Date / Time Fish Containing Products Allergy Severe Airway Verified 12/07/17 00:14 Tightness ziprasidone [From Geodon] Allergy Severe Airway Verified 12/07/17 00:14 Tightness tree nut Allergy Hives Verified 12/07/17 00:14 lamotrigine [From Lamictal] AdvReac Leg Cramps Verified 12/07/17 00:14 msg Allergy Hives Uncoded 12/07/17 00:14 Home Meds: Home Meds Cyanocobalamin (Vitamin B-12) [B-12] 500 mcg PO DAILY 07/29/17 [History] Ferrous Gluconate 324 mg PO DAILY 07/29/17 [History] Folic Acid 1 mg PO DAILY 07/29/17 [History] Gabapentin [Neurontin] 100 mg PO BID 07/29/17 [History] Lactulose 15 ml PO BID 07/29/17 [History] Thiamine [Vitamin B-1] 100 mg PO DAILY 07/29/17 [History] hydrOXYzine Pamoate [Hydroxyzine Pamoate] 25 mg PO TID PRN 07/29/17 [History] levETIRAcetam [Keppra] 500 mg PO BID 07/29/17 [History] Omeprazole 10 mg PO DAILY 10/19/17 [History] Cyclobenzaprine [Flexeril] 10 mg PO TID PRN #12 tab 11/06/17 [Rx] Prednisone [IJD: predniSONE] 20 mg PO BID 12/07/17 [History] Past Medical History HEENT History: Reports: Hard of Hearing, Impaired Vision Cardiovascular History: Reports: CAD, [place], Other (See Below) Other Cardiovascular History: portal hypertension Respiratory History: Reports: Asthma Gastrointestinal History: Reports: Cirrhosis, Other (See Below) Other Gastrointestinal History: ascites, liver disease, cholecystitis, hepatic encephalopathy, stent placed in liver Genitourinary History: Reports: Renal Calculus, Other (See Below) Other Genitourinary History: urethral stent placed that extends to kidney 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 (See Below) Other OB/BYN History: Irregular montes de oca Musculoskeletal History: Reports: Fracture Other Musculoskeletal History: colar bone Neurological History: Reports: Brain Injury, CVA, Head Trauma, Seizure, Other ( See Below) Other Neuro History: TBI ICH Skull defect Psychiatric History: Reports: Anxiety, Depression, Psych Hospitalization(s), Suicide Attempt Hematologic History: Reports: Blood Transfusion(s), Iron Deficiency, Other (See Below) Other Hematologic History: Hypokelemia, hypomagnesemia, hyponatremia Oncologic (Cancer) History: Reports: Cervix - Infectious Disease History Infectious Disease History: Reports: MRSA - Past Surgical History Head Surgeries/Procedures: Reports: None HEENT Surgical History: Reports: None Cardiovascular Surgical History: Reports: Coronary Artery Bypass Respiratory Surgical History: Reports: None GI Surgical History: Reports: Cholecystectomy Female Surgical History: Reports: Other (See Below) Other Female Surgeries/Procedures: removal of abscess from left breast Neurological Surgical History: Reports: None Oncologic Surgical History: Reports: None Dermatological Surgical History: Reports: None Social & Family History - Family History Family Medical History: Noncontributory - Tobacco Use Smoking Status *Q: Light Tobacco Smoker Years of Tobacco use: 30 Packs/Tins Daily: 0.2 Used Tobacco, but Quit: No Second Hand Smoke Exposure: No - Caffeine Use Caffeine Use: Reports: Coffee - Recreational Drug Use Recreational Drug Use: Yes - Living Situation & Occupation Living situation: Reports: Single Occupation: Disabled (lives in Apartment, Sister and Uncle live in same building.) ED ROS GENERAL - Review of Systems Review Of Systems: See Below Constitutional: Reports: No Symptoms HEENT: Reports: No Symptoms Respiratory: Reports: No Symptoms Cardiovascular: Reports: No Symptoms GI/Abdominal: Reports: No Symptoms : Reports: No Symptoms Musculoskeletal: Reports: Back Pain (low, acute on chronic), Leg Pain (R hip and leg and ankle) Skin: Reports: No Symptoms Neurological: Reports: No Symptoms Psychiatric: Reports: No Symptoms ED EXAM, GENERAL - Physical Exam Exam: See Below Exam Limited By: No Limitations General Appearance: Alert, WD/WN, Mild Distress (crying) Eye Exam: Bilateral Eye: Normal Inspection Ears: Normal External Exam, Normal Canal, Hearing Grossly Normal Ear Exam: Bilateral Ear: Auricle Normal, Canal Normal Nose: Normal Inspection, Normal Mucosa, No Blood Throat/Mouth: Normal Inspection, Normal Lips, Normal Oropharynx, Normal Voice, No Airway Compromise Head: Atraumatic, Normocephalic Neck: Normal Inspection, Supple, Non-Tender Respiratory/Chest: No Respiratory Distress, Lungs Clear, Normal Breath Sounds, No Accessory Muscle Use, Chest Non-Tender Cardiovascular: Regular Rate, Rhythm, No Edema GI/Abdominal: Normal Bowel Sounds, Soft, Non-Tender, No Distention Back Exam: Normal Inspection Extremities: Normal Inspection, No Pedal Edema, Limited Range of Motion (due to pain). No: Pedal Edema, Darlene's Sign, Increased Warmth, Redness Neurological: Alert, Oriented, CN II-XII Intact, Normal Cognition, No Motor/ Sensory Deficits Psychiatric: Normal Affect, Normal Mood Skin Exam: Warm, Dry, Intact, Normal Color, No Rash Course - Vital Signs Last Recorded V/S: Last Vital Signs Temp 35.8 C 12/07/17 00:21 Pulse 96 12/07/17 00:21 Resp 16 12/07/17 00:21 BP 156/93 H 12/07/17 00:21 Pulse Ox 98 12/07/17 00:21 - Orders/Labs/Meds Orders: Active Orders 24 hr Category Date Time Status Ankle Min 3V Rt [CR] Stat Exams 12/07/17 00:12 Taken Hip Min 2V or 3V Rt [CR] Stat Exams 12/07/17 00:12 Taken Meds: Medications Discontinued Medications Generic Name Dose Route Start Last Admin Trade Name Freq PRN Reason Stop Dose Admin Ketorolac Tromethamine 30 mg 12/07/17 00:12 Toradol IM 12/07/17 00:13 ONETIME ONE - Radiology Interpretation Free Text/Narrative:: R hip [id number] R ankle [id number] Departure - Departure Time of Disposition: 01:30 Disposition: Home, Self-Care 01 Condition: Good Clinical Impression: Hip pain, right Fall Qualifiers: Encounter type: initial encounter Qualified Code(s): W19.XXXA - Unspecified fall, initial encounter - Discharge Information Referrals: PCP,None [Primary Care Provider] - Forms: ED Department Discharge - My Orders Last 24 Hours: My Active Orders 12/07/17 00:12 Ankle Min 3V Rt [CR] Stat Hip Min 2V or 3V Rt [CR] Stat - Assessment/Plan Last 24 Hours: My Active Orders 12/07/17 00:12 Ankle Min 3V Rt [CR] Stat Hip Min 2V or 3V Rt [CR] Stat
[2017-12-07] MEDS ORDERED: Acetaminophen 325 MG Tab PO ONE (00:59)
--- NOTE | 2017-12-07 08:53 | CR ---
Right ankle There is diffuse demineralization throughout the ankle and foot. There is no evidence of fracture. Th e soft tissues are unremarkable. There is mild degenerative spurring laterally. Impression: 1. No acute findings.
--- NOTE | 2017-12-07 08:54 | CR ---
Right hip There is mild degenerative joint space loss. There is normal alignment. There is no evidence of fract ure. Impression: 1. No acute findings.
== END 2017-12-07 01:43 | disposition home or self-care (01) ==
LOC: JP.ED 23:55
DX: M25.551 Pain in right hip (principal); I25.2 Old myocardial infarction; F17.210 Nicotine dependence, cigarettes, uncomplicated; Z91.013 Allergy to seafood; Z88.8 Allergy status to other drugs, medicaments and biological substances; Z79.899 Other long term (current) drug therapy; W19.XXXA Unspecified fall, initial encounter; Y92.000 Kitchen of unspecified non-institutional (private) residence as the place of occurrence of the external cause
CPT/HCPCS: 73502-26-RT; 73502-RT; 73610-26-RT; 73610-RT; 96372; 99284-25

== ENCOUNTER 2017-12-13 13:59 | Emergency (ER) | payer MEDICAID ==
[2017-12-13] MEDS ORDERED: Ketorolac 30 MG/ML SDV IM ONE (14:56)
--- NOTE | 2017-12-13 15:02 | EDM.PDOC ---
ED HPI GENERAL MEDICAL PROBLEM - General Chief Complaint: Lower Extremity Injury/Pain Stated Complaint: BACK AND RIGHT LEG PAIN Time Seen by Provider: 12/13/17 14:25 Source of Information: Reports: Patient, Old Records, RN History Limitations: Reports: No Limitations - History of Present Illness INITIAL COMMENTS - FREE TEXT/NARRATIVE: 42 yo female was out looking to get blood work previously ordered at [facility] in advance of a planned injection in her back for pain radiating down her R leg. She went to the wrong door and concluded they were closed. She got frustrated and came to the ER to get help sorting out where where she is supposed to go and asks for something for pain. She has nothing new going on today with regards to her health. 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 (see below) (usual meds) Right Hip Pain Score (Numeric/FACES): 10 - Related Data Allergies Allergy/AdvReac Type Severity Reaction Status Date / Time Fish Containing Products Allergy Severe Airway Verified 12/13/17 14:05 Tightness ziprasidone [From Geodon] Allergy Severe Airway Verified 12/13/17 14:05 Tightness tree nut Allergy Hives Verified 12/13/17 14:05 lamotrigine [From Lamictal] AdvReac Leg Cramps Verified 12/13/17 14:05 msg Allergy Hives Uncoded 12/13/17 14:05 Home Meds: Home Meds Cyanocobalamin (Vitamin B-12) [B-12] 500 mcg PO DAILY 07/29/17 [History] Ferrous Gluconate 324 mg PO DAILY 07/29/17 [History] Folic Acid 1 mg PO DAILY 07/29/17 [History] Gabapentin [Neurontin] 100 mg PO BID 07/29/17 [History] Lactulose 15 ml PO BID 07/29/17 [History] Thiamine [Vitamin B-1] 100 mg PO DAILY 07/29/17 [History] hydrOXYzine Pamoate [Hydroxyzine Pamoate] 25 mg PO TID PRN 07/29/17 [History] levETIRAcetam [Keppra] 500 mg PO BID 07/29/17 [History] Omeprazole 10 mg PO DAILY 10/19/17 [History] Cyclobenzaprine [Flexeril] 10 mg PO TID PRN #12 tab 11/06/17 [Rx] Past Medical History HEENT History: Reports: Hard of Hearing, Impaired Vision Cardiovascular History: Reports: CAD, [place], Other (See Below) Other Cardiovascular History: portal hypertension Respiratory History: Reports: Asthma Gastrointestinal History: Reports: Cirrhosis, Other (See Below) Other Gastrointestinal History: ascites, liver disease, cholecystitis, hepatic encephalopathy, stent placed in liver Genitourinary History: Reports: Renal Calculus, Other (See Below) Other Genitourinary History: urethral stent placed that extends to kidney 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 (See Below) Other OB/BYN History: Irregular montes de oca Musculoskeletal History: Reports: Fracture Other Musculoskeletal History: colar bone Neurological History: Reports: Brain Injury, CVA, Head Trauma, Seizure, Other ( See Below) Other Neuro History: TBI ICH Skull defect Psychiatric History: Reports: Anxiety, Depression, Psych Hospitalization(s), Suicide Attempt Hematologic History: Reports: Blood Transfusion(s), Iron Deficiency, Other (See Below) Other Hematologic History: Hypokelemia, hypomagnesemia, hyponatremia Oncologic (Cancer) History: Reports: Cervix - Infectious Disease History Infectious Disease History: Reports: MRSA - Past Surgical History Head Surgeries/Procedures: Reports: None HEENT Surgical History: Reports: None Cardiovascular Surgical History: Reports: Coronary Artery Bypass Respiratory Surgical History: Reports: None GI Surgical History: Reports: Cholecystectomy Female Surgical History: Reports: Other (See Below) Other Female Surgeries/Procedures: removal of abscess from left breast Neurological Surgical History: Reports: None Oncologic Surgical History: Reports: None Dermatological Surgical History: Reports: None Social & Family History - Family History Family Medical History: Noncontributory - Tobacco Use Smoking Status *Q: Light Tobacco Smoker Years of Tobacco use: 30 Packs/Tins Daily: 0.2 Used Tobacco, but Quit: No Second Hand Smoke Exposure: No - Caffeine Use Caffeine Use: Reports: Coffee - Recreational Drug Use Recreational Drug Use: Yes Recreational Drug Type: Reports: Marijuana/Hashish Recreational Drug Use Frequency: Socially - Living Situation & Occupation Living situation: Reports: Single Occupation: Disabled (lives in Apartment, Sister and Uncle live in same building.) Review of Systems - Review of Systems Review Of Systems: See Below Constitutional: Reports: No Symptoms Eyes: Reports: No Symptoms Ears: Reports: No Symptoms Nose: Reports: No Symptoms Mouth/Throat: Reports: No Symptoms Respiratory: Reports: No Symptoms Cardiovascular: Reports: No Symptoms GI/Abdominal: Reports: No Symptoms Genitourinary: Reports: No Symptoms Musculoskeletal: Reports: Leg Pain (R leg and back) Skin: Reports: No Symptoms Neurological: Reports: Numbness (R leg at times) ED EXAM, GENERAL - Physical Exam Exam: See Below Exam Limited By: No Limitations General Appearance: Alert, WD/WN, No Apparent Distress Eye Exam: Bilateral Eye: PERRL Ears: Normal External Exam, Normal Canal, Hearing Grossly Normal Ear Exam: Bilateral Ear: Auricle Normal, Canal Normal Nose: Normal Inspection, Normal Mucosa, No Blood Throat/Mouth: Normal Inspection, Normal Lips, Normal Oropharynx, Normal Voice, No Airway Compromise Head: Atraumatic, Other (skull deformity from an old accident/surgery) Neck: Normal Inspection, Supple Respiratory/Chest: No Respiratory Distress, Lungs Clear, No Accessory Muscle Use Cardiovascular: Regular Rate, Rhythm Extremities: Normal Inspection, Non-Tender Neurological: Alert, Oriented, CN II-XII Intact, Normal Cognition, No Motor/ Sensory Deficits Psychiatric: Normal Affect, Normal Mood Skin Exam: Warm, Dry, Intact, Normal Color, No Rash Course - Vital Signs Last Recorded V/S: Last Vital Signs Temp 36.3 C 12/13/17 14:20 Pulse 91 12/13/17 14:20 Resp 17 12/13/17 14:20 BP 141/78 H 12/13/17 14:20 Pulse Ox 98 12/13/17 14:20 - Orders/Labs/Meds Meds: Medications Discontinued Medications Generic Name Dose Route Start Last Admin Trade Name Freq PRN Reason Stop Dose Admin Ketorolac Tromethamine 30 mg 12/13/17 14:56 Toradol IM 12/13/17 14:57 ONETIME ONE Departure - Departure Time of Disposition: 15:10 Disposition: Home, Self-Care 01 Condition: Good Clinical Impression: Chronic pain Qualifiers: Chronic pain type: chronic pain syndrome Qualified Code(s): G89.4 - Chronic pain syndrome - Discharge Information Referrals: PCP,None [Primary Care Provider] - Forms: ED Department Discharge Additional Instructions: Follow up at [facility] for your blood work and later your injection per plan. See your primary care provider for your pain med needs.
== END 2017-12-13 15:15 | disposition home or self-care (01) ==
LOC: JP.ED 13:59
DX: G89.4 Chronic pain syndrome (principal); M25.551 Pain in right hip; I25.2 Old myocardial infarction; J45.909 Unspecified asthma, uncomplicated; K76.6 Portal hypertension; K72.90 Hepatic failure, unspecified without coma; F41.9 Anxiety disorder, unspecified; F32.9 Major depressive disorder, single episode, unspecified; I25.810 Atherosclerosis of coronary artery bypass graft(s) without angina pectoris; F17.210 Nicotine dependence, cigarettes, uncomplicated; Z91.013 Allergy to seafood; Z91.018 Allergy to other foods; Z88.8 Allergy status to other drugs, medicaments and biological substances; Z87.442 Personal history of urinary calculi; Z95.5 Presence of coronary angioplasty implant and graft; Z86.73 Personal history of transient ischemic attack (TIA), and cerebral infarction without residual deficits; Z86.14 Personal history of Methicillin resistant Staphylococcus aureus infection; Z95.1 Presence of aortocoronary bypass graft
CPT/HCPCS: 96372; 99283; J1885

== ENCOUNTER 2017-12-18 01:39 | Emergency (ER) | payer MEDICAID ==
--- NOTE | 2017-12-18 02:20 | EDM.PDOC ---
ED HPI GENERAL MEDICAL PROBLEM - General Chief Complaint: General Stated Complaint: MEDICAL VIA NORTH Time Seen by Provider: 12/18/17 02:10 Source of Information: Reports: Patient, Old Records History Limitations: Reports: No Limitations - History of Present Illness INITIAL COMMENTS - FREE TEXT/NARRATIVE: 42 yo female fell in her home while intoxicated tonight. Says she hit the R side of her scalp and that is where she has the most pain. Did have a self- limited nose bleed before arrival. Vitals were stable en route via EMS. 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: Other (see below) (none) Headache Pain Score (Numeric/FACES): 9 - Related Data Allergies Allergy/AdvReac Type Severity Reaction Status Date / Time Fish Containing Products Allergy Severe Airway Verified 12/18/17 01:47 Tightness ziprasidone [From Geodon] Allergy Severe Airway Verified 12/18/17 01:47 Tightness tree nut Allergy Hives Verified 12/18/17 01:47 lamotrigine [From Lamictal] AdvReac Leg Cramps Verified 12/18/17 01:47 msg Allergy Hives Uncoded 12/18/17 01:47 Home Meds: Home Meds Cyanocobalamin (Vitamin B-12) [B-12] 500 mcg PO DAILY 07/29/17 [History] Ferrous Gluconate 324 mg PO DAILY 07/29/17 [History] Folic Acid 1 mg PO DAILY 07/29/17 [History] Gabapentin [Neurontin] 100 mg PO BID 07/29/17 [History] Lactulose 15 ml PO BID 07/29/17 [History] hydrOXYzine Pamoate [Hydroxyzine Pamoate] 25 mg PO TID PRN 07/29/17 [History] levETIRAcetam [Keppra] 500 mg PO BID 07/29/17 [History] Omeprazole 10 mg PO DAILY 10/19/17 [History] Past Medical History HEENT History: Reports: Hard of Hearing, Impaired Vision Cardiovascular History: Reports: CAD, [place], Other (See Below) Other Cardiovascular History: portal hypertension Respiratory History: Reports: Asthma Gastrointestinal History: Reports: Cirrhosis, Other (See Below) Other Gastrointestinal History: ascites, liver disease, cholecystitis, hepatic encephalopathy, stent placed in liver Genitourinary History: Reports: Renal Calculus, Other (See Below) Other Genitourinary History: urethral stent placed that extends to kidney 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 (See Below) Other OB/BYN History: Irregular montes de oca Musculoskeletal History: Reports: Fracture Other Musculoskeletal History: colar bone Neurological History: Reports: Brain Injury, CVA, Head Trauma, Seizure, Other ( See Below) Other Neuro History: TBI ICH Skull defect Psychiatric History: Reports: Anxiety, Depression, Psych Hospitalization(s), Suicide Attempt Hematologic History: Reports: Blood Transfusion(s), Iron Deficiency, Other (See Below) Other Hematologic History: Hypokelemia, hypomagnesemia, hyponatremia Oncologic (Cancer) History: Reports: Cervix - Infectious Disease History Infectious Disease History: Reports: MRSA - Past Surgical History Head Surgeries/Procedures: Reports: None HEENT Surgical History: Reports: None Cardiovascular Surgical History: Reports: Coronary Artery Bypass Respiratory Surgical History: Reports: None GI Surgical History: Reports: Cholecystectomy Female Surgical History: Reports: Other (See Below) Other Female Surgeries/Procedures: removal of abscess from left breast Neurological Surgical History: Reports: None Oncologic Surgical History: Reports: None Dermatological Surgical History: Reports: None Social & Family History - Family History Family Medical History: Noncontributory - Tobacco Use Smoking Status *Q: Current Every Day Smoker Years of Tobacco use: 30 Packs/Tins Daily: 0.1 Used Tobacco, but Quit: No Second Hand Smoke Exposure: No - Caffeine Use Caffeine Use: Reports: Coffee - Alcohol Use Days Per Week of Alcohol Use: 4 Number of Drinks Per Day: 3 Total Drinks Per Week: 12 Date of Last Drink: 12/18/17 - Recreational Drug Use Recreational Drug Use: No Recreational Drug Type: Reports: Marijuana/Hashish Recreational Drug Use Frequency: Socially - Living Situation & Occupation Living situation: Reports: Single Occupation: Disabled (lives in Apartment, Sister and Uncle live in same building.) ED ROS GENERAL - Review of Systems Review Of Systems: See Below Constitutional: Reports: No Symptoms HEENT: Reports: Nosebleed (resolved on arrival.) Respiratory: Reports: No Symptoms Cardiovascular: Reports: No Symptoms Endocrine: Reports: No Symptoms GI/Abdominal: Denies: Nausea, Vomiting : Reports: No Symptoms Musculoskeletal: Reports: No Symptoms Skin: Reports: No Symptoms Neurological: Reports: No Symptoms Psychiatric: Reports: No Symptoms ED EXAM, GENERAL - Physical Exam Exam: See Below Exam Limited By: No Limitations General Appearance: Alert, WD/WN, No Apparent Distress Eye Exam: Bilateral Eye: Normal Inspection, PERRL Ears: Normal External Exam, Normal Canal, Hearing Grossly Normal, Normal TMs Ear Exam: Bilateral Ear: Auricle Normal, Canal Normal, TM normal Nose: Other (dried blood R nares). No: No Blood Head: Atraumatic, Other (Has a defect of the right side of her scalp from an old injury with no bony coverage over that portion of her brain. ) Neck: Normal Inspection, Supple, Non-Tender Respiratory/Chest: No Respiratory Distress, Lungs Clear, Normal Breath Sounds, No Accessory Muscle Use Cardiovascular: Regular Rate, Rhythm, No Edema GI/Abdominal: Normal Bowel Sounds, Soft, Non-Tender, No Distention Back Exam: Normal Inspection. No: CVA Tenderness (R), CVA Tenderness (L) Extremities: Normal Inspection, Normal Range of Motion, Non-Tender, No Pedal Edema Neurological: Alert, Oriented, CN II-XII Intact, No Motor/Sensory Deficits Psychiatric: Normal Affect, Normal Mood Skin Exam: Warm, Dry, Intact, Normal Color, No Rash Lymphatic: No Adenopathy Course - Vital Signs Last Recorded V/S: Last Vital Signs Temp 35.1 C L 12/18/17 01:53 Pulse 87 12/18/17 01:53 Resp 20 12/18/17 01:53 BP 142/77 H 12/18/17 01:53 Pulse Ox 100 12/18/17 01:53 Departure - Departure Time of Disposition: 02:59 Disposition: Home, Self-Care 01 Condition: Good Clinical Impression: Alcohol intoxication Qualifiers: Complication of substance-induced condition: uncomplicated Qualified Code(s): F10.920 - Alcohol use, unspecified with intoxication, uncomplicated Minor head injury Qualifiers: Encounter type: initial encounter Qualified Code(s): S09.90XA - Unspecified injury of head, initial encounter - Discharge Information Referrals: PCP,None [Primary Care Provider] - Forms: ED Department Discharge
== END 2017-12-18 03:00 | disposition left against medical advice (07) ==
LOC: JP.ED 01:39
DX: S09.90XA Unspecified injury of head, initial encounter (principal); F10.120 Alcohol abuse with intoxication, uncomplicated; I25.10 Atherosclerotic heart disease of native coronary artery without angina pectoris; I25.2 Old myocardial infarction; F17.210 Nicotine dependence, cigarettes, uncomplicated; Z91.013 Allergy to seafood; Z88.8 Allergy status to other drugs, medicaments and biological substances; Z91.018 Allergy to other foods; Z79.899 Other long term (current) drug therapy; W19.XXXA Unspecified fall, initial encounter; W22.8XXA Striking against or struck by other objects, initial encounter
CPT/HCPCS: 99284

== ENCOUNTER 2017-12-19 02:01 | Emergency (ER) | payer MEDICAID ==
[2017-12-19] MEDS ORDERED: Ketorolac 60 MG/2 ML SDV IM ONE (02:36)
--- NOTE | 2017-12-19 02:41 | EDM.PDOC ---
ED HPI GENERAL MEDICAL PROBLEM - General Chief Complaint: Back Pain or Injury Stated Complaint: FALL - VIA NORTH Time Seen by Provider: 12/19/17 02:27 Source of Information: Reports: Patient History Limitations: Reports: No Limitations - History of Present Illness INITIAL COMMENTS - FREE TEXT/NARRATIVE: This patient fell at home when she was going to the kitchen. She said her right leg hurts so bad that it started just gave out and so she fell. There was no injury when she fell. She just wants something for pain. She was here yesterday morning for the same thing. 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 Right Leg Pain Score (Numeric/FACES): 10 - Related Data Allergies Allergy/AdvReac Type Severity Reaction Status Date / Time Fish Containing Products Allergy Severe Airway Verified 12/19/17 02:32 Tightness ziprasidone [From Geodon] Allergy Severe Airway Verified 12/19/17 02:32 Tightness tree nut Allergy Hives Verified 12/19/17 02:32 lamotrigine [From Lamictal] AdvReac Leg Cramps Verified 12/19/17 02:32 msg Allergy Hives Uncoded 12/19/17 02:32 Home Meds: Home Meds Cyanocobalamin (Vitamin B-12) [B-12] 500 mcg PO DAILY 07/29/17 [History] Ferrous Gluconate 324 mg PO DAILY 07/29/17 [History] Folic Acid 1 mg PO DAILY 07/29/17 [History] Gabapentin [Neurontin] 100 mg PO BID 07/29/17 [History] Lactulose 15 ml PO BID 07/29/17 [History] hydrOXYzine Pamoate [Hydroxyzine Pamoate] 25 mg PO TID PRN 07/29/17 [History] levETIRAcetam [Keppra] 500 mg PO BID 07/29/17 [History] Omeprazole 10 mg PO DAILY 10/19/17 [History] Past Medical History HEENT History: Reports: Hard of Hearing, Impaired Vision Cardiovascular History: Reports: CAD, [place], Other (See Below) Other Cardiovascular History: portal hypertension Respiratory History: Reports: Asthma Gastrointestinal History: Reports: Cirrhosis, Other (See Below) Other Gastrointestinal History: ascites, liver disease, cholecystitis, hepatic encephalopathy, stent placed in liver Genitourinary History: Reports: Renal Calculus, Other (See Below) Other Genitourinary History: urethral stent placed that extends to kidney 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 (See Below) Other OB/BYN History: Irregular [place]ca Musculoskeletal History: Reports: Fracture Other Musculoskeletal History: colar bone Neurological History: Reports: Brain Injury, CVA, Head Trauma, Seizure, Other ( See Below) Other Neuro History: TBI ICH Skull defect Psychiatric History: Reports: Anxiety, Depression, Psych Hospitalization(s), Suicide Attempt Hematologic History: Reports: Blood Transfusion(s), Iron Deficiency, Other (See Below) Other Hematologic History: Hypokelemia, hypomagnesemia, hyponatremia Oncologic (Cancer) History: Reports: Cervix - Infectious Disease History Infectious Disease History: Reports: Chicken Pox - Past Surgical History HEENT Surgical History: Reports: None Cardiovascular Surgical History: Reports: Coronary Artery Bypass Respiratory Surgical History: Reports: None GI Surgical History: Reports: Cholecystectomy Female Surgical History: Reports: Other (See Below) Other Female Surgeries/Procedures: removal of abscess from left breast Neurological Surgical History: Reports: None Oncologic Surgical History: Reports: None Dermatological Surgical History: Reports: None Social & Family History - Family History Family Medical History: Noncontributory - Tobacco Use Smoking Status *Q: Current Every Day Smoker Years of Tobacco use: 20 Packs/Tins Daily: 1 Used Tobacco, but Quit: No Second Hand Smoke Exposure: No - Caffeine Use Caffeine Use: Reports: Coffee, Soda - Alcohol Use Days Per Week of Alcohol Use: 4 Number of Drinks Per Day: 3 Total Drinks Per Week: 12 - Recreational Drug Use Recreational Drug Use: No Recreational Drug Type: Reports: Marijuana/Hashish Recreational Drug Use Frequency: Socially - Living Situation & Occupation Living situation: Reports: Single Occupation: Disabled (lives in Apartment, Sister and Uncle live in same building.) ED ROS GENERAL - Review of Systems Review Of Systems: ROS reveals no pertinent complaints other than HPI. 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 She says that the right leg is numb. That seems to be a chronic problem for her. She says the right leg is getting weaker but that is also chronic.) Skin Exam: Warm, Dry Course - Vital Signs Last Recorded V/S: Last Vital Signs Temp 35.9 C 12/19/17 02:04 Pulse 98 12/19/17 02:04 Resp 18 12/19/17 02:04 BP 144/99 H 12/19/17 02:04 Pulse Ox 99 12/19/17 02:04 - Re-Assessments/Exams Free Text/Narrative Re-Assessment/Exam: 12/19/17 02:40 She received an injection of Toradol 60 mg IM Departure - Departure Time of Disposition: 02:40 Disposition: Home, Self-Care 01 Condition: Fair Clinical Impression: Fall, Chronic low back pain with right-sided sciatica - Discharge Information Referrals: PCP,None [Primary Care Provider] - Additional Instructions: Follow-up with your regular Dr. if you need more medications for pain
== END 2017-12-19 03:30 | disposition home or self-care (01) ==
LOC: JP.ED 02:01
DX: M54.41 Lumbago with sciatica, right side (principal); I25.2 Old myocardial infarction; Z91.09 Other allergy status, other than to drugs and biological substances; Z88.8 Allergy status to other drugs, medicaments and biological substances; Z79.899 Other long term (current) drug therapy; W19.XXXA Unspecified fall, initial encounter; Y92.000 Kitchen of unspecified non-institutional (private) residence as the place of occurrence of the external cause
CPT/HCPCS: 96372; 99284; J1885

== ENCOUNTER 2017-12-20 16:09 | Inpatient (IN) | payer MEDICAID ==
--- NOTE | 2017-12-20 16:50 | EDM.PDOC ---
ED HPI GENERAL MEDICAL PROBLEM - General Chief Complaint: Behavioral/Psych Stated Complaint: INJURY VIA NORTH Time Seen by Provider: 12/20/17 16:42 Source of Information: Reports: Patient History Limitations: Reports: Altered Mental Status - History of Present Illness INITIAL COMMENTS - FREE TEXT/NARRATIVE: pt arrived with a history of falling almost every day in her apartment. She thinks she is having another stroke. She has been drinking today. She states she has had 2 shots. Onset: Other (pt has been having problems for several days. ) Duration: Hour(s): Location: Reports: Head, Other ( She has had weakness in the rt leg. ) Associated Symptoms: Reports: Confusion, Headaches, Other (pt has been drinking . She was on the floor in her apartment. She has multiple bruises. ) Lower Back Pain Score (Numeric/FACES): 8 - Related Data Allergies Allergy/AdvReac Type Severity Reaction Status Date / Time Fish Containing Products Allergy Severe Airway Verified 12/19/17 02:32 Tightness ziprasidone [From Geodon] Allergy Severe Airway Verified 12/19/17 02:32 Tightness tree nut Allergy Hives Verified 12/19/17 02:32 lamotrigine [From Lamictal] AdvReac Leg Cramps Verified 12/19/17 02:32 msg Allergy Hives Uncoded 12/19/17 02:32 Home Meds: Home Meds Cyanocobalamin (Vitamin B-12) [B-12] 500 mcg PO DAILY 07/29/17 [History] Ferrous Gluconate 324 mg PO DAILY 07/29/17 [History] Folic Acid 1 mg PO DAILY 07/29/17 [History] Gabapentin [Neurontin] 100 mg PO BID 07/29/17 [History] Lactulose 15 ml PO BID 07/29/17 [History] hydrOXYzine Pamoate [Hydroxyzine Pamoate] 25 mg PO TID PRN 07/29/17 [History] levETIRAcetam [Keppra] 500 mg PO BID 07/29/17 [History] Omeprazole 10 mg PO DAILY 10/19/17 [History] Past Medical History HEENT History: Reports: Hard of Hearing, Impaired Vision Cardiovascular History: Reports: CAD, [place], Other (See Below) Other Cardiovascular History: portal hypertension Respiratory History: Reports: Asthma Gastrointestinal History: Reports: Cirrhosis, Other (See Below) Other Gastrointestinal History: ascites, liver disease, cholecystitis, hepatic encephalopathy, stent placed in liver Genitourinary History: Reports: Renal Calculus, Other (See Below) Other Genitourinary History: urethral stent placed that extends to kidney 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) Other OB/BYN History: Irregular mont[place] oca Musculoskeletal History: Reports: Fracture Other Musculoskeletal History: colar bone Neurological History: Reports: Brain Injury, CVA, Head Trauma, Seizure, Other ( See Below) Other Neuro History: TBI ICH Skull defect Psychiatric History: Reports: Anxiety, Depression, Psych Hospitalization(s), Suicide Attempt Hematologic History: Reports: Blood Transfusion(s), Iron Deficiency, Other (See Below) Other Hematologic History: Hypokelemia, hypomagnesemia, hyponatremia Oncologic (Cancer) History: Reports: Cervix - Infectious Disease History Infectious Disease History: Reports: Chicken Pox - Past Surgical History HEENT Surgical History: Reports: None Cardiovascular Surgical History: Reports: Coronary Artery Bypass Respiratory Surgical History: Reports: None GI Surgical History: Reports: Cholecystectomy Female Surgical History: Reports: Other (See Below) Other Female Surgeries/Procedures: removal of abscess from left breast Neurological Surgical History: Reports: None Oncologic Surgical History: Reports: None Dermatological Surgical History: Reports: None Social & Family History - Family History Family Medical History: Noncontributory - Tobacco Use Smoking Status *Q: Current Every Day Smoker Years of Tobacco use: 20 Packs/Tins Daily: 1 Used Tobacco, but Quit: No Second Hand Smoke Exposure: No - Caffeine Use Caffeine Use: Reports: Coffee, Soda - Alcohol Use Days Per Week of Alcohol Use: 4 Number of Drinks Per Day: 3 Total Drinks Per Week: 12 - Recreational Drug Use Recreational Drug Use: Yes Recreational Drug Type: Reports: Marijuana/Hashish Recreational Drug Use Frequency: Socially - Living Situation & Occupation Living situation: Reports: Single Occupation: Disabled (lives in Apartment, Sister and Uncle live in same building.) ED ROS GENERAL - Review of Systems Review Of Systems: See Below Constitutional: Reports: Chills HEENT: Reports: No Symptoms Respiratory: Reports: No Symptoms Cardiovascular: Reports: No Symptoms Endocrine: Reports: No Symptoms GI/Abdominal: Reports: No Symptoms : Reports: No Symptoms Musculoskeletal: Reports: Other ( weakness in her rt leg. She has residual weakness in the left side from a subdural hematoma. ) Neurological: Reports: Gait Disturbance, Other (pt has been falling. ) Psychiatric: Reports: Depression, Other (pt has been drinking. ) ED EXAM, NEURO - Physical Exam Exam: See Below Text/Narrative:: pt was down in her apartment. She has had multiple falls. She has obviously been drinking. She does not remember whether she has been taking her medication. Exam Limited By: No Limitations General Appearance: Alert, Other (pain in her back and rt leg. ) Ears: Normal TMs Nose: Normal Inspection Throat/Mouth: Normal Inspection Head Exam: Other (pt has had a previous subdural and part of her skull is missing. ) Neck: Normal Inspection Respiratory/Chest: No Respiratory Distress Cardiovascular: Regular Rate, Rhythm GI/Abdominal: Soft, Non-Tender (Female) Exam: Other ( tovar cath was inserted she has been wearing depends. ) Rectal (Female) Exam: Deferred Neurological: Alert, Other (pt is confused. She states her rt leg is weak and that is why she is falling. 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 She has fallen multiple times. ) Back Exam: Other ( She is tender over the rt lumbar area. She has had a recent MRI of the lumbar area which shows significant disc disease. ) Psychiatric: Other (pt has been drinking. ) Course - Vital Signs Last Recorded V/S: Last Vital Signs Temp 35.2 C 12/20/17 16:22 Pulse 97 12/20/17 16:22 Resp 15 12/20/17 16:22 BP 140/85 12/20/17 16:22 Pulse Ox 98 12/20/17 16:22 - Orders/Labs/Meds Orders: Active Orders 24 hr Category Date Time Status Head wo Cont [CT] Stat Exams 12/20/17 16:23 Taken CREATINE KINASE,CK [CHEM] Urgent Lab 12/20/17 17:39 Ordered CULTURE URINE [RM] Stat Lab 12/20/17 17:41 Ordered DRUG SCREEN, URINE [URCHEM] Stat Lab 12/20/17 17:11 Ordered KEPPRA [REF] Stat Lab 12/20/17 16:51 Received UA W/MICROSCOPIC [URIN] Urgent Lab 12/20/17 17:11 Ordered Sodium Chloride 0.9% [Normal Saline] 1,000 ml Med 12/20/17 17:15 Active IV ASDIRECTED Medication Orders Sodium Chloride (Normal Saline) 1,000 mls @ 999 mls/hr IV ASDIRECTED JOSE Last Admin: 12/20/17 17:20 Dose: 999 mls/hr Labs: Laboratory Tests 12/20/17 12/20/17 12/20/17 Range/Units 16:23 16:23 16:23 WBC 5.4 (4.5-11.0) K/uL RBC 4.09 (3.30-5.50) M/uL Hgb 12.2 (12.0-15.0) g/dL Hct 36.7 (36.0-48.0) % MCV 90 (80-98) fL MCH 30 (27-31) pg MCHC 33 (32-36) % Plt Count 109 L (150-400) K/uL Neut % (Auto) 32 L (36-66) % Lymph % (Auto) 52 H (24-44) % Davidson % (Auto) 8 H (2-6) % Eos % (Auto) 7 H (2-4) % Baso % (Auto) 1 (0-1) % Sodium 151 H (140-148) mmol/L Potassium 3.7 (3.6-5.2) mmol/L Chloride 116 H (100-108) mmol/L Carbon Dioxide 26 (21-32) mmol/L Anion Gap 12.7 (5.0-14.0) mmol/L BUN 9 (7-18) mg/dL Creatinine 0.8 (0.6-1.0) mg/dL Est Cr Clr Drug Dosing 70.98 mL/min Estimated GFR (MDRD) > 60 (>60) Glucose 100 (74-106) mg/dL Calcium 8.3 L (8.5-10.1) mg/dL Total Bilirubin 0.7 (0.2-1.0) mg/dL AST 35 (15-37) U/L ALT 31 (12-78) U/L Alkaline Phosphatase 125 H (46-116) U/L Total Protein 6.5 (6.4-8.2) g/dL Albumin 3.0 L (3.4-5.0) g/dL Globulin 3.5 (2.3-3.5) g/dL Albumin/Globulin Ratio 0.9 L (1.2-2.2) Urine Color Urine Appearance Urine pH (4.5-8.0) Ur Specific [place] (1.008-1.030) Urine Protein (NEGATIVE) mg/dL Urine Glucose (UA) (NEGATIVE) mg/dL Urine Ketones (NEGATIVE) mg/dL Urine Occult Blood (NEGATIVE) Urine Nitrite (NEGATIVE) Urine Bilirubin (NEGATIVE) Urine Urobilinogen (NORMAL) mg/dL Ur Leukocyte Esterase (NEGATIVE) Urine RBC (0-5) Urine WBC (0-5) Ur Epithelial Cells Amorphous Sediment Urine Bacteria Urine Mucus Urine Opiates Screen (NEGATIVE) Ur Oxycodone Screen (NEGATIVE) Urine Methadone Screen (NEGATIVE) Ur Propoxyphene Screen (NEGATIVE) Ur Barbiturates Screen (NEGATIVE) Ur Tricyclics Screen (NEGATIVE) Ur Phencyclidine Scrn (NEGATIVE) Ur Amphetamine Screen (NEGATIVE) U Methamphetamines Scrn (NEGATIVE) Urine MDMA Screen (NEGATIVE) U Benzodiazepines Scrn (NEGATIVE) U Cocaine Metab Screen (NEGATIVE) U Marijuana (THC) Screen (NEGATIVE) Ethyl Alcohol 283 mg/dL 12/20/17 12/20/17 Range/Units 17:11 17:11 WBC (4.5-11.0) K/uL RBC (3.30-5.50) M/uL Hgb (12.0-15.0) g/dL Hct (36.0-48.0) % MCV (80-98) fL MCH (27-31) pg MCHC (32-36) % Plt Count (150-400) K/uL Neut % (Auto) (36-66) % Lymph % (Auto) (24-44) % Davidson % (Auto) (2-6) % Eos % (Auto) (2-4) % Baso % (Auto) (0-1) % Sodium (140-148) mmol/L Potassium (3.6-5.2) mmol/L Chloride (100-108) mmol/L Carbon Dioxide (21-32) mmol/L Anion Gap (5.0-14.0) mmol/L BUN (7-18) mg/dL Creatinine (0.6-1.0) mg/dL Est Cr Clr Drug Dosing mL/min Estimated GFR (MDRD) (>60) Glucose (74-106) mg/dL Calcium (8.5-10.1) mg/dL Total Bilirubin (0.2-1.0) mg/dL AST (15-37) U/L ALT (12-78) U/L Alkaline Phosphatase (46-116) U/L Total Protein (6.4-8.2) g/dL Albumin (3.4-5.0) g/dL Globulin (2.3-3.5) g/dL Albumin/Globulin Ratio (1.2-2.2) Urine Color Yellow Urine Appearance Cloudy Urine pH 7.0 (4.5-8.0) Ur Specific [place] 1.010 (1.008-1.030) Urine Protein Negative (NEGATIVE) mg/dL Urine Glucose (UA) Normal (NEGATIVE) mg/dL Urine Ketones Negative (NEGATIVE) mg/dL Urine Occult Blood Negative (NEGATIVE) Urine Nitrite Positive H (NEGATIVE) Urine Bilirubin Negative (NEGATIVE) Urine Urobilinogen Normal (NORMAL) mg/dL Ur Leukocyte Esterase Negative (NEGATIVE) Urine RBC Not seen (0-5) Urine WBC Not seen (0-5) Ur Epithelial Cells Rare Amorphous Sediment Rare Urine Bacteria Many Urine Mucus Rare Urine Opiates Screen Negative (NEGATIVE) Ur Oxycodone Screen Negative (NEGATIVE) Urine Methadone Screen Negative (NEGATIVE) Ur Propoxyphene Screen Negative (NEGATIVE) Ur Barbiturates Screen Negative (NEGATIVE) Ur Tricyclics Screen Negative (NEGATIVE) Ur Phencyclidine Scrn Negative (NEGATIVE) Ur Amphetamine Screen Negative (NEGATIVE) U Methamphetamines Scrn Negative (NEGATIVE) Urine MDMA Screen Negative (NEGATIVE) U Benzodiazepines Scrn Positive H (NEGATIVE) U Cocaine Metab Screen Negative (NEGATIVE) U Marijuana (THC) Screen Negative (NEGATIVE) Ethyl Alcohol mg/dL Meds: Medications Generic Name Dose Route Start Last Admin Trade Name Freq PRN Reason Stop Dose Admin Sodium Chloride 1,000 mls @ 999 mls/hr 12/20/17 17:15 12/20/17 17:20 Normal Saline IV 999 mls/hr ASDIRECTED JOSE Administration Discontinued Medications Generic Name Dose Route Start Last Admin Trade Name Freq PRN Reason Stop Dose Admin Levetiracetam 250 mg/ Sodium 102.5 mls @ 400 mls/hr 12/20/17 17:15 12/20/17 17:27 Chloride IV 12/20/17 17:30 Not Given ONETIME ONE Lorazepam Confirm 12/20/17 16:50 12/20/17 17:15 Ativan Administered 12/20/17 16:51 0.5 mg Dose Administration 2 mg .ROUTE .STK-MED ONE Lorazepam 0.5 mg 12/20/17 16:51 12/20/17 16:52 Ativan IVPUSH 12/20/17 16:52 0.5 mg ONETIME ONE Administration - Re-Assessments/Exams Free Text/Narrative Re-Assessment/Exam: 12/20/17 17:42 pt has a sodium greater than 150. She had a ct scan which is unchanged form the one on December 18. She has a etoh of .283. She has a neg drug scree, Her urine looks infected. She has a tovar cath in place. Departure - Departure Time of Disposition: 17:44 Disposition: Admitted As Inpatient 64 Condition: Fair Clinical Impression: Hypernatremia, Dehydration, Intoxication, Lumbar disc disease, History of subdural hematoma - Discharge Information Referrals: PCP,None [Primary Care Provider] - Forms: ED Department Discharge Care Plan Goals: admit to Dr Brambila. - My Orders Last 24 Hours: My Active Orders 12/20/17 16:23 Head wo Cont [CT] Stat 12/20/17 16:51 KEPPRA [REF] Stat 12/20/17 17:11 DRUG SCREEN, URINE [URCHEM] Stat UA W/MICROSCOPIC [URIN] Urgent 12/20/17 17:15 Sodium Chloride 0.9% [Normal Saline] 1,000 ml IV ASDIRECTED 12/20/17 17:39 CREATINE KINASE,CK [CHEM] Urgent 12/20/17 17:41 CULTURE URINE [RM] Stat - Assessment/Plan Last 24 Hours: My Active Orders 12/20/17 16:23 Head wo Cont [CT] Stat 12/20/17 16:51 KEPPRA [REF] Stat 12/20/17 17:11 DRUG SCREEN, URINE [URCHEM] Stat UA W/MICROSCOPIC [URIN] Urgent 12/20/17 17:15 Sodium Chloride 0.9% [Normal Saline] 1,000 ml IV ASDIRECTED 12/20/17 17:39 CREATINE KINASE,CK [CHEM] Urgent 12/20/17 17:41 CULTURE URINE [RM] Stat
[2017-12-20] MEDS ORDERED: LORazepam 2 MG/ML SDV IVPUSH ONE (16:51)
[2017-12-20] MEDS: LORazepam 2 MG/ML SDV ONE ×3 (17:00→17:15)
[2017-12-20] MEDS ORDERED: Sodium Chloride 0.9% 1,000 ML IV SCH (17:15)
--- NOTE | 2017-12-20 19:05 | PCM.HP ---
H&P History of Present Illness - General Date of Service: 12/20/17 Admit Problem/Dx: Admission Diagnosis/Problem Admission Diagnosis/Problem Seizure Source of Information: Old Records, Provider, RN Notes Reviewed History Limitations: Reports: Altered Mental Status (Sedated, postictal, intoxicated) - History of Present Illness Initial Comments - Free Text/Narative: Ms. Leggett is a 42-year-old woman who is admitted through the emergency department following a seizure, with alcohol intoxication. She is currently postictal and has received sedating medication, unable to provide significant history concerning recent symptoms or events. Despite her relatively young age she has a complicated extensive past medical history including; traumatic brain injury, large subdural hematoma status post partial skull resection, coronary artery disease status post coronary artery bypass surgery, hepatic cirrhosis with hepatic encephalopathy, chronic low back pain with recent difficulty of right leg weakness and pain. She apparently has been falling frequently over the past few days and is been into the emergency department several times. Fell today and was brought in for further evaluation, shortly after she arrived in the emergency department experienced a generalized tonic-clonic seizure and was given IV lorazepam. CT scan of the head shows chronic changes but no acute abnormalities. She is intoxicated with an alcohol level of 283. Lower Back Pain Score (Numeric/FACES): 8 - Related Data Allergies/Adverse Reactions: Allergies Allergy/AdvReac Type Severity Reaction Status Date / Time Fish Containing Products Allergy Severe Airway Verified 12/19/17 02:32 Tightness ziprasidone [From Geodon] Allergy Severe Airway Verified 12/19/17 02:32 Tightness tree nut Allergy Hives Verified 12/19/17 02:32 lamotrigine [From Lamictal] AdvReac Leg Cramps Verified 12/19/17 02:32 msg Allergy Hives Uncoded 12/19/17 02:32 Home Medications: Home Meds Cyanocobalamin (Vitamin B-12) [B-12] 500 mcg PO DAILY 07/29/17 [History] Ferrous Gluconate 324 mg PO DAILY 07/29/17 [History] Folic Acid 1 mg PO DAILY 07/29/17 [History] Gabapentin [Neurontin] 100 mg PO BID 07/29/17 [History] Lactulose 15 ml PO BID 07/29/17 [History] hydrOXYzine Pamoate [Hydroxyzine Pamoate] 25 mg PO TID PRN 07/29/17 [History] levETIRAcetam [Keppra] 500 mg PO BID 07/29/17 [History] Omeprazole 10 mg PO DAILY 10/19/17 [History] Past Medical History HEENT History: Reports: Hard of Hearing, Impaired Vision Cardiovascular History: Reports: CAD, [place], Other (See Below) Other Cardiovascular History: portal hypertension Respiratory History: Reports: Asthma Gastrointestinal History: Reports: Cirrhosis, Other (See Below) Other Gastrointestinal History: ascites, liver disease, cholecystitis, hepatic encephalopathy, stent placed in liver Genitourinary History: Reports: Renal Calculus, Other (See Below) Other Genitourinary History: urethral stent placed that extends to kidney OB TECH History: Reports: Other (See Below) Other OB/BYN History: Irregular [place] Musculoskeletal History: Reports: Fracture Other Musculoskeletal History: colar bone Neurological History: Reports: Brain Injury, CVA, Head Trauma, Seizure, Other ( See Below) Other Neuro History: TBI ICH Skull defect Psychiatric History: Reports: Anxiety, Depression, Psych Hospitalization(s), Suicide Attempt Hematologic History: Reports: Blood Transfusion(s), Iron Deficiency, Other (See Below) Other Hematologic History: Hypokelemia, hypomagnesemia, hyponatremia Oncologic (Cancer) History: Reports: Cervix - Infectious Disease History Infectious Disease History: Reports: Chicken Pox - Past Surgical History HEENT Surgical History: Reports: None Cardiovascular Surgical History: Reports: Coronary Artery Bypass Respiratory Surgical History: Reports: None GI Surgical History: Reports: Cholecystectomy Female Surgical History: Reports: Other (See Below) Other Female Surgeries/Procedures: removal of abscess from left breast Neurological Surgical History: Reports: None Oncologic Surgical History: Reports: None Dermatological Surgical History: Reports: None Social & Family History - Family History Family Medical History: Noncontributory - Tobacco Use Smoking Status *Q: Current Every Day Smoker Years of Tobacco use: 20 Packs/Tins Daily: 1 Used Tobacco, but Quit: No Second Hand Smoke Exposure: No - Caffeine Use Caffeine Use: Reports: Coffee, Soda - Alcohol Use Days Per Week of Alcohol Use: 4 Number of Drinks Per Day: 3 Total Drinks Per Week: 12 - Recreational Drug Use Recreational Drug Use: Yes Recreational Drug Type: Reports: Marijuana/Hashish Recreational Drug Use Frequency: Socially - Living Situation & Occupation Living situation: Reports: Single Occupation: Disabled (lives in Apartment, Sister and Uncle live in same building.) H&P Review of Systems - Review of Systems: Review Of Systems: Unable To Obtain General: Reports: ROS unobtainable (Postictal, sedating medication) Exam - Exam Exam: See Below - Vital Signs Vital Signs: Last Vital Signs Temp 95.4 F 12/20/17 16:22 Pulse 91 12/20/17 18:22 Resp 15 12/20/17 16:22 BP 145/75 H 12/20/17 18:22 Pulse Ox 99 12/20/17 18:22 Weight: 185 lb - Exam Quality Assessment: DVT Prophylaxis General: Sedated, Lethargic, Other (Postictal) HEENT: Conjunctiva Clear, Mucosa Moist & [place]yline, Posterior Pharynx Clear, Pupils Equal, Pupils Reactive Neck: Supple, Trachea Midline, +2 Carotid Pulse wo Bruit Lungs: Clear to Auscultation, Normal Respiratory Effort Cardiovascular: Regular Rate, Regular Rhythm, Normal S1, Normal S2. No: Systolic Murmur, Diastolic Murmur GI/Abdominal Exam: Soft, Non-Tender, No Organomegaly, No Distention Extremities: Non-Tender, No Pedal Edema Skin: Warm, Dry, Ecchymosis Neurological: Other (Unable to cooperate with detailed exam, moves all 4 extremities to stimulation) - Patient Data Lab Results Last 24 hrs: Laboratory Results - last 24 hr 12/20/17 12/20/17 12/20/17 Range/Units 16:23 16:23 16:23 WBC 5.4 (4.5-11.0) K/uL RBC 4.09 (3.30-5.50) M/uL Hgb 12.2 (12.0-15.0) g/dL Hct 36.7 (36.0-48.0) % MCV 90 (80-98) fL MCH 30 (27-31) pg MCHC 33 (32-36) % Plt Count 109 L (150-400) K/uL Neut % (Auto) 32 L (36-66) % Lymph % (Auto) 52 H (24-44) % Allen % (Auto) 8 H (2-6) % Eos % (Auto) 7 H (2-4) % Baso % (Auto) 1 (0-1) % Sodium 151 H (140-148) mmol/L Potassium 3.7 (3.6-5.2) mmol/L Chloride 116 H (100-108) mmol/L Carbon Dioxide 26 (21-32) mmol/L Anion Gap 12.7 (5.0-14.0) mmol/L BUN 9 (7-18) mg/dL Creatinine 0.8 (0.6-1.0) mg/dL Est Cr Clr Drug Dosing 70.98 mL/min Estimated GFR (MDRD) > 60 (>60) Glucose 100 (74-106) mg/dL Calcium 8.3 L (8.5-10.1) mg/dL Total Bilirubin 0.7 (0.2-1.0) mg/dL AST 35 (15-37) U/L ALT 31 (12-78) U/L Alkaline Phosphatase 125 H (46-116) U/L Creatine Kinase (26-192) U/L Total Protein 6.5 (6.4-8.2) g/dL Albumin 3.0 L (3.4-5.0) g/dL Globulin 3.5 (2.3-3.5) g/dL Albumin/Globulin Ratio 0.9 L (1.2-2.2) Urine Color Urine Appearance Urine pH (4.5-8.0) Ur Specific [place] (1.008-1.030) Urine Protein (NEGATIVE) mg/dL Urine Glucose (UA) (NEGATIVE) mg/dL Urine Ketones (NEGATIVE) mg/dL Urine Occult Blood (NEGATIVE) Urine Nitrite (NEGATIVE) Urine Bilirubin (NEGATIVE) Urine Urobilinogen (NORMAL) mg/dL Ur Leukocyte Esterase (NEGATIVE) Urine RBC (0-5) Urine WBC (0-5) Ur Epithelial Cells Amorphous Sediment Urine Bacteria Urine Mucus Urine Opiates Screen (NEGATIVE) Ur Oxycodone Screen (NEGATIVE) Urine Methadone Screen (NEGATIVE) Ur Propoxyphene Screen (NEGATIVE) Ur Barbiturates Screen (NEGATIVE) Ur Tricyclics Screen (NEGATIVE) Ur Phencyclidine Scrn (NEGATIVE) Ur Amphetamine Screen (NEGATIVE) U Methamphetamines Scrn (NEGATIVE) Urine MDMA Screen (NEGATIVE) U Benzodiazepines Scrn (NEGATIVE) U Cocaine Metab Screen (NEGATIVE) U Marijuana (THC) Screen (NEGATIVE) Ethyl Alcohol 283 mg/dL 12/20/17 12/20/17 12/20/17 Range/Units 17:11 17:11 17:39 WBC (4.5-11.0) K/uL RBC (3.30-5.50) M/uL Hgb (12.0-15.0) g/dL Hct (36.0-48.0) % MCV (80-98) fL MCH (27-31) pg MCHC (32-36) % Plt Count (150-400) K/uL Neut % (Auto) (36-66) % Lymph % (Auto) (24-44) % Allen % (Auto) (2-6) % Eos % (Auto) (2-4) % Baso % (Auto) (0-1) % Sodium (140-148) mmol/L Potassium (3.6-5.2) mmol/L Chloride (100-108) mmol/L Carbon Dioxide (21-32) mmol/L Anion Gap (5.0-14.0) mmol/L BUN (7-18) mg/dL Creatinine (0.6-1.0) mg/dL Est Cr Clr Drug Dosing mL/min Estimated GFR (MDRD) (>60) Glucose (74-106) mg/dL Calcium (8.5-10.1) mg/dL Total Bilirubin (0.2-1.0) mg/dL AST (15-37) U/L ALT (12-78) U/L Alkaline Phosphatase (46-116) U/L Creatine Kinase 252 H (26-192) U/L Total Protein (6.4-8.2) g/dL Albumin (3.4-5.0) g/dL Globulin (2.3-3.5) g/dL Albumin/Globulin Ratio (1.2-2.2) Urine Color Yellow Urine Appearance Cloudy Urine pH 7.0 (4.5-8.0) Ur Specific [place] 1.010 (1.008-1.030) Urine Protein Negative (NEGATIVE) mg/dL Urine Glucose (UA) Normal (NEGATIVE) mg/dL Urine Ketones Negative (NEGATIVE) mg/dL Urine Occult Blood Negative (NEGATIVE) Urine Nitrite Positive H (NEGATIVE) Urine Bilirubin Negative (NEGATIVE) Urine Urobilinogen Normal (NORMAL) mg/dL Ur Leukocyte Esterase Negative (NEGATIVE) Urine RBC Not seen (0-5) Urine WBC Not seen (0-5) Ur Epithelial Cells Rare Amorphous Sediment Rare Urine Bacteria Many Urine Mucus Rare Urine Opiates Screen Negative (NEGATIVE) Ur Oxycodone Screen Negative (NEGATIVE) Urine Methadone Screen Negative (NEGATIVE) Ur Propoxyphene Screen Negative (NEGATIVE) Ur Barbiturates Screen Negative (NEGATIVE) Ur Tricyclics Screen Negative (NEGATIVE) Ur Phencyclidine Scrn Negative (NEGATIVE) Ur Amphetamine Screen Negative (NEGATIVE) U Methamphetamines Scrn Negative (NEGATIVE) Urine MDMA Screen Negative (NEGATIVE) U Benzodiazepines Scrn Positive H (NEGATIVE) U Cocaine Metab Screen Negative (NEGATIVE) U Marijuana (THC) Screen Negative (NEGATIVE) Ethyl Alcohol mg/dL Result Diagrams: 12/20/17 16:23 12/20/17 16:23 *Q Meaningful Use (ADM) - VTE Risk Assess *Q Each Risk Factor Represents 1 Point: Age 41 - 59 years, Obesity ( BMI > 25 kg/m2 ) Total Score 1 Point Risk Factors: 2 Each Risk Factor Represents 2 Points: None Total Score 2 Point Risk Factors: 0 Each Risk Factor Represents 3 Points: None Total Score 3 Point Risk Factors: 0 Each Risk Factor Represents 5 Points: None Total Score 5 Point Risk Factors: 0 Venous Thromboembolism Risk Factor Score *Q: 2 Problem List Initiated/Reviewed/Updated: Yes Orders Last 24hrs: Active Orders 24 hr Category Date Time Status Patient Status Manage Transfer [TRANSFER] Routine ADT 12/20/17 18:12 Active Insert Jean Catheter [Insert Urinary Catheter] [OM.PC] Care 12/20/17 17:15 Ordered Q24H Urinary Catheter Assessment [RC] ASDIRECTED Care 12/20/17 17:42 Active Head wo Cont [CT] Stat Exams 12/20/17 16:23 Taken CULTURE URINE [RM] Stat Lab 12/20/17 17:41 Ordered DRUG SCREEN, URINE [URCHEM] Stat Lab 12/20/17 17:11 Ordered HCG QUALITATIVE,SERUM [CHEM] Stat Lab 12/20/17 18:59 Ordered KEPPRA [REF] Stat Lab 12/20/17 16:51 Received UA W/MICROSCOPIC [URIN] Urgent Lab 12/20/17 17:11 Ordered Sodium Chloride 0.9% [Normal Saline] 1,000 ml Med 12/20/17 17:15 Active IV ASDIRECTED Resuscitation Status Routine Resus Stat 12/20/17 18:16 Ordered Medication Orders Sodium Chloride (Normal Saline) 1,000 mls @ 999 mls/hr IV ASDIRECTED JOSE Last Admin: 12/20/17 17:20 Dose: 999 mls/hr Assessment/Plan Comment:: ASSESSMENT AND PLAN SEIZURE-known history of seizure disorder, unclear if she has been taking her Keppra on a regular basis. Secondary to underlying traumatic brain injury and previous subdural hematoma. Currently is postictal and received IV lorazepam causing some ongoing sedation. In addition to the lorazepam did receive IV Keppra 250 mg in the emergency department. -Admit to ICU -Resume usual dose of Keppra 500 mg twice daily -IV fluids for hydration -seizure precautions -neuro checks every 4 hours ALCOHOL INTOXICATION/DEPENDENCE-history of daily alcohol use, alcohol level on admission 283. -Alcohol withdrawal protocol -Banana bag -gabapentin 400 mg by mouth every 8 hours 4 days, then 200 mg by mouth every 8 hours 4 days HISTORY OF HEPATIC CIRRHOSIS WITH HEPATIC ENCEPHALOPATHY -continue outpatient medical regimen HISTORY OF TRAUMATIC BRAIN INJURY MAINTENANCE ISSUES -DVT prophylaxis; SCUDs -GI prophylaxis;Continue outpatient PPI therapy -Jean catheter; not indicated -Nutrition; REGULAR DIET -Nicotine dependence;not required CODE STATUS- FULL CODE ADMISSION STATUS-patient will be admitted to inpatient status, expect at least a 2 night hospital stay for evaluation and management of problems as outlined above. At the time of this admission I do not reasonably expected evaluation and management of this problem will require more than a 96 hour hospital stay. DISPOSITION-anticipate discharge to home after the hospital stay. PRIMARY CARE PROVIDER-
[2017-12-20] MEDS ORDERED: Sodium Chloride 0.9% 10 ML Syringe FLUSH PRN (19:54)
[2017-12-20] MEDS ORDERED: Ondansetron 4 MG/2 ML SDV IV PRN (19:54)
[2017-12-20] MEDS ORDERED: LORazepam 1 MG Tab PO SCH (19:54)
[2017-12-20] MEDS ORDERED: MVI, Adult with Vitamin K 10 ML, Thiamine 100 MG, Folic Acid 1 MG, Magnesium Sulfate 2 ... IV ONE ×5 (19:54)
[2017-12-20] MEDS ORDERED: oxyCODONE 5 MG Tab PO PRN (19:54)
[2017-12-20] MEDS ORDERED: Albuterol 0.083% 2.5 MG/3 ML Neb Soln NEB PRN (19:54)
[2017-12-20] MEDS ORDERED: Dextrose 5%-0.45% NaCl 1,000 ML IV SCH (19:54)
[2017-12-20] MEDS ORDERED: Magnesium Hydroxide 400 MG/5 ML Susp 30 ML Cup PO PRN (19:54)
[2017-12-20] MEDS ORDERED: LORazepam 2 MG/ML SDV IV SCH (19:54)
[2017-12-20] MEDS ORDERED: LORazepam 2 MG/ML SDV IVPUSH PRN (19:55)
[2017-12-20] MEDS ORDERED: hydrOXYzine HCl 25 MG Tab PO PRN (20:16)
[2017-12-20] MEDS ORDERED: Lactulose Soln 10 GM/15 ML 15 ML UD Cup ONE (21:43)
[2017-12-20] MEDS ORDERED: levETIRAcetam 250 MG Tab ONE (21:45)
[2017-12-20] MEDS: Thiamine 100 MG Tab PO SCH (22:10)
[2017-12-20] MEDS: Lactulose Soln 10 GM/15 ML 15 ML UD Cup PO SCH (22:12)
[2017-12-20] MEDS: levETIRAcetam 250 MG Tab PO SCH (22:12)
[2017-12-20] MEDS: Gabapentin 400 MG Cap PO SCH (22:13)
[2017-12-21] MEDS: Gabapentin 400 MG Cap PO SCH (05:09)
[2017-12-21] MEDS ORDERED: Pantoprazole 40 MG Tab.CR PO SCH (07:30)
[2017-12-21] MEDS: Lactulose Soln 10 GM/15 ML 15 ML UD Cup PO SCH (08:08)
[2017-12-21] MEDS: levETIRAcetam 250 MG Tab PO SCH (08:09)
[2017-12-21] MEDS: Thiamine 100 MG Tab PO SCH (08:09)
[2017-12-21] MEDS ORDERED: Magnesium Sulfate/Water 2 GM in Premix Bag 1 BAG IV ONE (08:30)
[2017-12-21] MEDS ORDERED: Magnesium Oxide 400 MG Tab PO SCH (09:00)
[2017-12-21] MEDS ORDERED: Folic Acid 1 MG Tab PO SCH (09:00)
--- NOTE | 2017-12-21 10:37 | PCM.DCSUM1 ---
Discharge Summary - Hospital Course Brief History: Ms. Leggett is a 42-year-old woman who is admitted through the emergency department with alcohol intoxication and seizure which occurred in the emergency department. - Discharge Data Discharge Date: 12/21/17 Discharge Disposition: Home, Self-Care 01 Condition: Fair - Discharge Diagnosis/Problem(s) (1) Seizure SNOMED Code(s): 98435260 ICD Code: R56.9 - UNSPECIFIED CONVULSIONS Status: Acute Current Visit: Yes (2) Alcohol intoxication SNOMED Code(s): 37441510 ICD Code: F10.929 - ALCOHOL USE, UNSPECIFIED WITH INTOXICATION, UNSPECIFIED Status: Acute Current Visit: No Qualifiers: Complication of substance-induced condition: uncomplicated Qualified Code(s ): F10.920 - Alcohol use, unspecified with intoxication, uncomplicated (3) Chronic pain SNOMED Code(s): 33902247 ICD Code: G89.29 - OTHER CHRONIC PAIN Status: Chronic Current Visit: No Qualifiers: Chronic pain type: chronic pain syndrome Qualified Code(s): G89.4 - Chronic pain syndrome (4) Lumbar disc herniation with radiculopathy SNOMED Code(s): 132066479 ICD Code: M51.16 - INTERVERTEBRAL DISC DISORDERS W RADICULOPATHY, LUMBAR REGION Status: Chronic Priority: High Current Visit: No - Patient Summary/Data Hospital Course: Ms. Leggett is a 42-year-old woman who was admitted through the emergency department following a seizure, with alcohol intoxication. She was postictal and had received sedating medication, unable to provide significant history concerning recent symptoms or events. Despite her relatively young age she has a complicated extensive past medical history including; traumatic brain injury, large subdural hematoma status post partial skull resection, coronary artery disease status post coronary artery bypass surgery, hepatic cirrhosis with hepatic encephalopathy, chronic low back pain with recent difficulty of right leg weakness and pain. She apparently has been falling frequently over the past few days and is been into the emergency department several times. Fell on the day of admission and was brought in for further evaluation, shortly after she arrived in the emergency department experienced a generalized tonic-clonic seizure and was given IV lorazepam. CT scan of the head showed chronic changes but no acute abnormalities. She was intoxicated with an alcohol level of 283. In addition to the IV lorazepam in the emergency department she was given 250 mg of IV Keppra. She was admitted to the hospital, given IV fluids for hydration and started back on oral antiepileptic therapy with Keppra 500 mg twice daily. She was placed on seizure precautions and had neuro checks performed every 4 hours. She had no new neurologic compromise or recurrent seizures during the rest of her hospitalization. She was placed on alcohol withdrawal protocol and started on gabapentin 400 mg by mouth every 8 hours. Following morning she felt she was back to her usual state, denied daily alcohol use but stated that she'd overindulged in alcohol on the day of admission. She has follow-up appointment pending with neurosurgery concerning her ongoing back and right leg pain. Follow-up appointment will be scheduled with her primary care provider within one week. She is encouraged to take her Keppra on a regular basis. Activity will be as tolerated and she will resume her usual diet. She was admitted as an inpatien but because she improved and was feeling well on the day after admission she will be discharge to home earlier than anticipated requiring only a one night hospital stay. - Patient Instructions Diet: Usual Diet as Tolerated Activity: As Tolerated Other/Special Instructions: Please schedule follow-up appointment with Dr. Ramirez within one week - Discharge Plan Home Medications: Home Meds Cyanocobalamin (Vitamin B-12) [B-12] 500 mcg PO DAILY 07/29/17 [History] Ferrous Gluconate 324 mg PO DAILY 07/29/17 [History] Folic Acid 1 mg PO DAILY 07/29/17 [History] Gabapentin [Neurontin] 100 mg PO BID 07/29/17 [History] Lactulose 15 ml PO BID 07/29/17 [History] hydrOXYzine Pamoate [Hydroxyzine Pamoate] 25 mg PO TID PRN 07/29/17 [History] levETIRAcetam [Keppra] 500 mg PO BID 07/29/17 [History] Omeprazole 10 mg PO DAILY 10/19/17 [History] Referrals: Vicky Ramirez MD [Physician] - - Discharge Summary/Plan Comment DC Time >30 min.: No - Patient Data Vitals - Most Recent: Last Vital Signs Temp 99 F 12/21/17 08:47 Pulse 91 12/21/17 04:00 Resp 13 12/21/17 08:47 BP 165/91 H 12/21/17 08:47 Pulse Ox 98 12/21/17 08:47 Weight - Most Recent: 153 lb 6 oz I&O - Last 24 hours: Intake & Output 12/20/17 12/21/17 12/21/17 22:59 06:59 14:59 Intake Total 1960 1960 100 Output Total 600 Balance 1360 1960 100 Lab Results - Last 24 hrs: Laboratory Results - last 24 hr 12/20/17 12/20/17 12/20/17 Range/Units 16:23 16:23 16:23 WBC 5.4 (4.5-11.0) K/uL RBC 4.09 (3.30-5.50) M/uL Hgb 12.2 (12.0-15.0) g/dL Hct 36.7 (36.0-48.0) % MCV 90 (80-98) fL MCH 30 (27-31) pg MCHC 33 (32-36) % Plt Count 109 L (150-400) K/uL Neut % (Auto) 32 L (36-66) % Lymph % (Auto) 52 H (24-44) % [place] % (Auto) 8 H (2-6) % Eos % (Auto) 7 H (2-4) % Baso % (Auto) 1 (0-1) % PT (9.5-12.0) sec INR (0.80-1.20) Sodium 151 H (140-148) mmol/L Potassium 3.7 (3.6-5.2) mmol/L Chloride 116 H (100-108) mmol/L Carbon Dioxide 26 (21-32) mmol/L Anion Gap 12.7 (5.0-14.0) mmol/L BUN 9 (7-18) mg/dL Creatinine 0.8 (0.6-1.0) mg/dL Est Cr Clr Drug Dosing 70.98 mL/min Estimated GFR (MDRD) > 60 (>60) Glucose 100 (74-106) mg/dL Calcium 8.3 L (8.5-10.1) mg/dL Magnesium (1.8-2.4) mg/dL Total Bilirubin 0.7 (0.2-1.0) mg/dL AST 35 (15-37) U/L ALT 31 (12-78) U/L Alkaline Phosphatase 125 H (46-116) U/L Creatine Kinase (26-192) U/L Total Protein 6.5 (6.4-8.2) g/dL Albumin 3.0 L (3.4-5.0) g/dL Globulin 3.5 (2.3-3.5) g/dL Albumin/Globulin Ratio 0.9 L (1.2-2.2) HCG, Qual Urine Color Urine Appearance Urine pH (4.5-8.0) Ur Specific Mcdonald (1.008-1.030) Urine Protein (NEGATIVE) mg/dL Urine Glucose (UA) (NEGATIVE) mg/dL Urine Ketones (NEGATIVE) mg/dL Urine Occult Blood (NEGATIVE) Urine Nitrite (NEGATIVE) Urine Bilirubin (NEGATIVE) Urine Urobilinogen (NORMAL) mg/dL Ur Leukocyte Esterase (NEGATIVE) Urine RBC (0-5) Urine WBC (0-5) Ur Epithelial Cells Amorphous Sediment Urine Bacteria Urine Mucus Urine Opiates Screen (NEGATIVE) Ur Oxycodone Screen (NEGATIVE) Urine Methadone Screen (NEGATIVE) Ur Propoxyphene Screen (NEGATIVE) Ur Barbiturates Screen (NEGATIVE) Ur Tricyclics Screen (NEGATIVE) Ur Phencyclidine Scrn (NEGATIVE) Ur Amphetamine Screen (NEGATIVE) U Methamphetamines Scrn (NEGATIVE) Urine MDMA Screen (NEGATIVE) U Benzodiazepines Scrn (NEGATIVE) U Cocaine Metab Screen (NEGATIVE) U Marijuana (THC) Screen (NEGATIVE) Ethyl Alcohol 283 mg/dL 12/20/17 12/20/17 12/20/17 Range/Units 17:11 17:11 17:39 WBC (4.5-11.0) K/uL RBC (3.30-5.50) M/uL Hgb (12.0-15.0) g/dL Hct (36.0-48.0) % MCV (80-98) fL MCH (27-31) pg MCHC (32-36) % Plt Count (150-400) K/uL Neut % (Auto) (36-66) % Lymph % (Auto) (24-44) % [place] % (Auto) (2-6) % Eos % (Auto) (2-4) % Baso % (Auto) (0-1) % PT (9.5-12.0) sec INR (0.80-1.20) Sodium (140-148) mmol/L Potassium (3.6-5.2) mmol/L Chloride (100-108) mmol/L Carbon Dioxide (21-32) mmol/L Anion Gap (5.0-14.0) mmol/L BUN (7-18) mg/dL Creatinine (0.6-1.0) mg/dL Est Cr Clr Drug Dosing mL/min Estimated GFR (MDRD) (>60) Glucose (74-106) mg/dL Calcium (8.5-10.1) mg/dL Magnesium (1.8-2.4) mg/dL Total Bilirubin (0.2-1.0) mg/dL AST (15-37) U/L ALT (12-78) U/L Alkaline Phosphatase (46-116) U/L Creatine Kinase 252 H (26-192) U/L Total Protein (6.4-8.2) g/dL Albumin (3.4-5.0) g/dL Globulin (2.3-3.5) g/dL Albumin/Globulin Ratio (1.2-2.2) HCG, Qual Urine Color Yellow Urine Appearance Cloudy Urine pH 7.0 (4.5-8.0) Ur Specific Mcdonald 1.010 (1.008-1.030) Urine Protein Negative (NEGATIVE) mg/dL Urine Glucose (UA) Normal (NEGATIVE) mg/dL Urine Ketones Negative (NEGATIVE) mg/dL Urine Occult Blood Negative (NEGATIVE) Urine Nitrite Positive H (NEGATIVE) Urine Bilirubin Negative (NEGATIVE) Urine Urobilinogen Normal (NORMAL) mg/dL Ur Leukocyte Esterase Negative (NEGATIVE) Urine RBC Not seen (0-5) Urine WBC Not seen (0-5) Ur Epithelial Cells Rare Amorphous Sediment Rare Urine Bacteria Many Urine Mucus Rare Urine Opiates Screen Negative (NEGATIVE) Ur Oxycodone Screen Negative (NEGATIVE) Urine Methadone Screen Negative (NEGATIVE) Ur Propoxyphene Screen Negative (NEGATIVE) Ur Barbiturates Screen Negative (NEGATIVE) Ur Tricyclics Screen Negative (NEGATIVE) Ur Phencyclidine Scrn Negative (NEGATIVE) Ur Amphetamine Screen Negative (NEGATIVE) U Methamphetamines Scrn Negative (NEGATIVE) Urine MDMA Screen Negative (NEGATIVE) U Benzodiazepines Scrn Positive H (NEGATIVE) U Cocaine Metab Screen Negative (NEGATIVE) U Marijuana (THC) Screen Negative (NEGATIVE) Ethyl Alcohol mg/dL 12/20/17 12/21/17 12/21/17 Range/Units 18:59 06:10 06:10 WBC 6.0 (4.5-11.0) K/uL RBC 3.67 (3.30-5.50) M/uL Hgb 11.0 L (12.0-15.0) g/dL Hct 33.2 L (36.0-48.0) % MCV 91 (80-98) fL MCH 30 (27-31) pg MCHC 33 (32-36) % Plt Count 100 L (150-400) K/uL Neut % (Auto) 40 (36-66) % Lymph % (Auto) 45 H (24-44) % [place] % (Auto) 11 H (2-6) % Eos % (Auto) 4 (2-4) % Baso % (Auto) 0 (0-1) % PT 12.1 H (9.5-12.0) sec INR 1.13 (0.80-1.20) Sodium (140-148) mmol/L Potassium (3.6-5.2) mmol/L Chloride (100-108) mmol/L Carbon Dioxide (21-32) mmol/L Anion Gap (5.0-14.0) mmol/L BUN (7-18) mg/dL Creatinine (0.6-1.0) mg/dL Est Cr Clr Drug Dosing mL/min Estimated GFR (MDRD) (>60) Glucose (74-106) mg/dL Calcium (8.5-10.1) mg/dL Magnesium (1.8-2.4) mg/dL Total Bilirubin (0.2-1.0) mg/dL AST (15-37) U/L ALT (12-78) U/L Alkaline Phosphatase (46-116) U/L Creatine Kinase (26-192) U/L Total Protein (6.4-8.2) g/dL Albumin (3.4-5.0) g/dL Globulin (2.3-3.5) g/dL Albumin/Globulin Ratio (1.2-2.2) HCG, Qual Negative Urine Color Urine Appearance Urine pH (4.5-8.0) Ur Specific Mcdonald (1.008-1.030) Urine Protein (NEGATIVE) mg/dL Urine Glucose (UA) (NEGATIVE) mg/dL Urine Ketones (NEGATIVE) mg/dL Urine Occult Blood (NEGATIVE) Urine Nitrite (NEGATIVE) Urine Bilirubin (NEGATIVE) Urine Urobilinogen (NORMAL) mg/dL Ur Leukocyte Esterase (NEGATIVE) Urine RBC (0-5) Urine WBC (0-5) Ur Epithelial Cells Amorphous Sediment Urine Bacteria Urine Mucus Urine Opiates Screen (NEGATIVE) Ur Oxycodone Screen (NEGATIVE) Urine Methadone Screen (NEGATIVE) Ur Propoxyphene Screen (NEGATIVE) Ur Barbiturates Screen (NEGATIVE) Ur Tricyclics Screen (NEGATIVE) Ur Phencyclidine Scrn (NEGATIVE) Ur Amphetamine Screen (NEGATIVE) U Methamphetamines Scrn (NEGATIVE) Urine MDMA Screen (NEGATIVE) U Benzodiazepines Scrn (NEGATIVE) U Cocaine Metab Screen (NEGATIVE) U Marijuana (THC) Screen (NEGATIVE) Ethyl Alcohol mg/dL 12/21/17 Range/Units 06:10 WBC (4.5-11.0) K/uL RBC (3.30-5.50) M/uL Hgb (12.0-15.0) g/dL Hct (36.0-48.0) % MCV (80-98) fL MCH (27-31) pg MCHC (32-36) % Plt Count (150-400) K/uL Neut % (Auto) (36-66) % Lymph % (Auto) (24-44) % [place] % (Auto) (2-6) % Eos % (Auto) (2-4) % Baso % (Auto) (0-1) % PT (9.5-12.0) sec INR (0.80-1.20) Sodium 145 (140-148) mmol/L Potassium 4.0 (3.6-5.2) mmol/L Chloride 111 H (100-108) mmol/L Carbon Dioxide 24 (21-32) mmol/L Anion Gap 14.0 (5.0-14.0) mmol/L BUN 8 (7-18) mg/dL Creatinine 0.8 (0.6-1.0) mg/dL Est Cr Clr Drug Dosing 80.75 mL/min Estimated GFR (MDRD) > 60 (>60) Glucose 92 (74-106) mg/dL Calcium 8.3 L (8.5-10.1) mg/dL Magnesium 1.7 L (1.8-2.4) mg/dL Total Bilirubin 0.8 (0.2-1.0) mg/dL AST 35 (15-37) U/L ALT 28 (12-78) U/L Alkaline Phosphatase 115 (46-116) U/L Creatine Kinase (26-192) U/L Total Protein 5.8 L (6.4-8.2) g/dL Albumin 2.6 L (3.4-5.0) g/dL Globulin 3.2 (2.3-3.5) g/dL Albumin/Globulin Ratio 0.8 L (1.2-2.2) HCG, Qual Urine Color Urine Appearance Urine pH (4.5-8.0) Ur Specific Mcdonald (1.008-1.030) Urine Protein (NEGATIVE) mg/dL Urine Glucose (UA) (NEGATIVE) mg/dL Urine Ketones (NEGATIVE) mg/dL Urine Occult Blood (NEGATIVE) Urine Nitrite (NEGATIVE) Urine Bilirubin (NEGATIVE) Urine Urobilinogen (NORMAL) mg/dL Ur Leukocyte Esterase (NEGATIVE) Urine RBC (0-5) Urine WBC (0-5) Ur Epithelial Cells Amorphous Sediment Urine Bacteria Urine Mucus Urine Opiates Screen (NEGATIVE) Ur Oxycodone Screen (NEGATIVE) Urine Methadone Screen (NEGATIVE) Ur Propoxyphene Screen (NEGATIVE) Ur Barbiturates Screen (NEGATIVE) Ur Tricyclics Screen (NEGATIVE) Ur Phencyclidine Scrn (NEGATIVE) Ur Amphetamine Screen (NEGATIVE) U Methamphetamines Scrn (NEGATIVE) Urine MDMA Screen (NEGATIVE) U Benzodiazepines Scrn (NEGATIVE) U Cocaine Metab Screen (NEGATIVE) U Marijuana (THC) Screen (NEGATIVE) Ethyl Alcohol mg/dL ALINA Results - Last 24 hrs: Microbiology 12/20/17 17:41 Urine Culture - Preliminary Urine, Bladder Med Orders - Current: Current Medications Albuterol (Proventil Neb Soln) 2.5 mg NEB Q4H PRN PRN Reason: Shortness Of Breath/wheezing Folic Acid (Folic Acid) 1 mg PO DAILY [facility] Last Admin: 12/21/17 08:09 Dose: 1 mg Gabapentin (Neurontin) 400 mg PO Q8H [facility] Last Admin: 12/21/17 05:09 Dose: 400 mg Hydroxyzine HCl (Atarax) 25 mg PO TID PRN PRN Reason: ANXIETY Dextrose/Sodium Chloride (Dextrose 5%-1/2 Ns) 1,000 mls @ 125 mls/hr IV ASDIRECTED [facility] Last Admin: 12/21/17 08:27 Dose: 125 mls/hr Lactulose (Chronulac) 10 gm PO BID [facility] Last Admin: 12/21/17 08:08 Dose: 10 gm Levetiracetam (Keppra) 500 mg PO BID [facility] Last Admin: 12/21/17 08:09 Dose: 500 mg Lorazepam (Ativan) 0 mg IV ASDIRECTED [facility]; Protocol Lorazepam (Ativan) 0 mg PO ASDIRECTED [facility]SE; Protocol Lorazepam (Ativan) 1 mg IVPUSH ONETIME PRN PRN Reason: Seizures Magnesium Hydroxide (Milk Of Magnesia) 30 ml PO Q12H PRN PRN Reason: Constipation Magnesium Oxide (Magnesium Oxide) 400 mg PO BID [facility] Last Admin: 12/21/17 08:12 Dose: 400 mg Ondansetron HCl (Zofran) 4 mg IV Q4H PRN PRN Reason: Nausea/Vomiting Oxycodone HCl (Oxycodone) 5 mg PO Q4H PRN PRN Reason: Pain (moderate 4-6) Pantoprazole Sodium (Protonix) 40 mg PO ACBREAKFAST [facility] Last Admin: 12/21/17 08:09 Dose: 40 mg Senna/Docusate Sodium (Senna Plus) 1 tab PO BID PRN PRN Reason: Constipation Sodium Chloride (Saline Flush) 10 ml FLUSH ASDIRECTED PRN PRN Reason: Keep Vein Open Thiamine HCl (Vitamin B-1) 100 mg PO DAILY [facility] Last Admin: 12/21/17 08:09 Dose: 100 mg Discontinued Medications Levetiracetam 250 mg/ Sodium (Chloride) 102.5 mls @ 400 mls/hr IV ONETIME ONE Stop: 12/20/17 17:30 Last Admin: 12/20/17 17:27 Dose: Not Given Sodium Chloride (Normal Saline) 1,000 mls @ 999 mls/hr IV ASDIRECTED [facility] Last Admin: 12/20/17 17:20 Dose: 999 mls/hr Multivitamins/Minerals 10 ml/Thiamine HCl 100 mg/ Folic Acid 1 mg/ Magnesium Sulfate 2 gm/ Sodium Chloride 1,015.2 mls @ 100 mls/hr IV ONETIME ONE Stop: 12/21/17 06:03 Last Admin: 12/20/17 22:08 Dose: 100 mls/hr Magnesium Sulfate 2 gm/ Premix 50 mls @ 25 mls/hr IV ONETIME ONE Stop: 12/21/17 10:29 Last Admin: 12/21/17 08:17 Dose: 25 mls/hr Lactulose (Chronulac) Confirm Administered Dose 10 gm .ROUTE .STK-MED ONE Stop: 12/20/17 21:44 Last Admin: 12/20/17 22:13 Dose: Not Given Levetiracetam (Keppra) Confirm Administered Dose 500 mg .ROUTE .STK-MED ONE Stop: 12/20/17 21:46 Last Admin: 12/20/17 22:13 Dose: Not Given Lorazepam (Ativan) Confirm Administered Dose 2 mg .ROUTE .STK-MED ONE Stop: 12/20/17 16:51 Last Admin: 12/20/17 17:00 Dose: Not Given Lorazepam (Ativan) 0.5 mg IVPUSH ONETIME ONE Stop: 12/20/17 16:52 Last Admin: 12/20/17 16:52 Dose: 0.5 mg - Exam General: Reports: Alert, Oriented, Cooperative, No Acute Distress Lungs: Reports: Clear to Auscultation, Normal Respiratory Effort Cardiovascular: Reports: Regular Rate, Regular Rhythm, No Murmurs GI/Abdominal Exam: Soft, Non-Tender, No Organomegaly, No Distention Extremities: Non-Tender, No Pedal Edema Skin: Reports: Warm, Dry, Intact Neurological: Reports: No New Focal Deficit
== END 2017-12-21 11:22 | disposition home or self-care (01) | DRG 101 ==
LOC: JP.ED 16:09 → JP.ICU 18:12
PROVIDERS: ADMIT Hospitalist; ATTEND Hospitalist
DX: G40.909 Epilepsy, unspecified, not intractable, without status epilepticus (principal); Y90.8 Blood alcohol level of 240 mg/100 ml or more; F10.229 Alcohol dependence with intoxication, unspecified; M51.16 Intervertebral disc disorders with radiculopathy, lumbar region; R29.6 Repeated falls; F17.210 Nicotine dependence, cigarettes, uncomplicated; I25.10 Atherosclerotic heart disease of native coronary artery without angina pectoris; Z86.73 Personal history of transient ischemic attack (TIA), and cerebral infarction without residual deficits; Z87.820 Personal history of traumatic brain injury; K74.60 Unspecified cirrhosis of liver; K72.90 Hepatic failure, unspecified without coma; Z95.1 Presence of aortocoronary bypass graft; Z85.41 Personal history of malignant neoplasm of cervix uteri; I25.2 Old myocardial infarction; H54.7 Unspecified visual loss; H91.90 Unspecified hearing loss, unspecified ear; Z91.018 Allergy to other foods; Z88.8 Allergy status to other drugs, medicaments and biological substances; Z91.5 Personal history of self-harm; R53.1 Weakness
CPT/HCPCS: 36415; 70450; 80053; 80177; 80305; 81001; 82550; 83735; 84703; 85025; 85610; 87086; 87088; 87186; 96361; 96374; 99285-25; A9270-GY; G0480; J1953; J2060; J3411; J3475; J3490; J7030

== ENCOUNTER 2017-12-22 05:37 | Emergency (ER) | payer MEDICAID ==
--- NOTE | 2017-12-22 05:49 | EDM.PDOC ---
<[facility] Real - Last Filed: 12/22/17 06:37> ED HPI GENERAL MEDICAL PROBLEM - General Stated Complaint: MEDICAL VIA [facility] Time Seen by Provider: 12/22/17 05:40 Source of Information: Reports: Patient, EMS History Limitations: Reports: Altered Mental Status, Intoxication - History of Present Illness INITIAL COMMENTS - FREE TEXT/NARRATIVE: 42-year-old female pushed her medical alert bracelet to summon the ambulance after taking some extra Keppra and gabapentin. EMS did not bring her bottles in but they said they all looked "full". She is complaining of chronic pain, her speech is very slurred but she is answering questions. Vitals are stable. Onset: Unknown/Unsure Severity: Moderate Generalized Pain Score (Numeric/FACES): 9 - Related Data Allergies Allergy/AdvReac Type Severity Reaction Status Date / Time Fish Containing Products Allergy Severe Airway Verified 12/22/17 05:58 Tightness ziprasidone [From Geodon] Allergy Severe Airway Verified 12/22/17 05:58 Tightness tree nut Allergy Hives Verified 12/22/17 05:58 lamotrigine [From Lamictal] AdvReac Leg Cramps Verified 12/22/17 05:58 msg Allergy Hives Uncoded 12/22/17 05:58 Home Meds: Home Meds Cyanocobalamin (Vitamin B-12) [B-12] 500 mcg PO DAILY 07/29/17 [History] Ferrous Gluconate 324 mg PO DAILY 07/29/17 [History] Folic Acid 1 mg PO DAILY 07/29/17 [History] Gabapentin [Neurontin] 100 mg PO BID 07/29/17 [History] Lactulose 15 ml PO BID 07/29/17 [History] hydrOXYzine Pamoate [Hydroxyzine Pamoate] 25 mg PO TID PRN 07/29/17 [History] levETIRAcetam [Keppra] 500 mg PO BID 07/29/17 [History] Omeprazole 10 mg PO DAILY 10/19/17 [History] Past Medical History HEENT History: Reports: Hard of Hearing, Impaired Vision Cardiovascular History: Reports: CAD, [place], Other (See Below) Other Cardiovascular History: portal hypertension Respiratory History: Reports: Asthma Gastrointestinal History: Reports: Cirrhosis, Other (See Below) Other Gastrointestinal History: ascites, liver disease, cholecystitis, hepatic encephalopathy, stent placed in liver Genitourinary History: Reports: Renal Calculus, Other (See Below) Other Genitourinary History: urethral stent placed that extends to kidney CONTENT DEVELOPER History: Reports: Other (See Below) Other OB/BYN History: Irregular montes de oca Musculoskeletal History: Reports: Fracture Other Musculoskeletal History: colar bone Neurological History: Reports: Brain Injury, CVA, Head Trauma, Seizure, Other ( See Below) Other Neuro History: TBI ICH Skull defect Psychiatric History: Reports: Anxiety, Depression, Psych Hospitalization(s), Suicide Attempt Hematologic History: Reports: Blood Transfusion(s), Iron Deficiency, Other (See Below) Other Hematologic History: Hypokelemia, hypomagnesemia, hyponatremia Oncologic (Cancer) History: Reports: Cervix - Infectious Disease History Infectious Disease History: Reports: Chicken Pox - Past Surgical History HEENT Surgical History: Reports: None Cardiovascular Surgical History: Reports: Coronary Artery Bypass Respiratory Surgical History: Reports: None GI Surgical History: Reports: Cholecystectomy Female Surgical History: Reports: Other (See Below) Other Female Surgeries/Procedures: removal of abscess from left breast Neurological Surgical History: Reports: None Oncologic Surgical History: Reports: None Dermatological Surgical History: Reports: None Social & Family History - Family History Family Medical History: Noncontributory - Tobacco Use Smoking Status *Q: Current Every Day Smoker Years of Tobacco use: 20 Packs/Tins Daily: 1 Used Tobacco, but Quit: No Second Hand Smoke Exposure: No - Caffeine Use Caffeine Use: Reports: Coffee, Soda - Alcohol Use Days Per Week of Alcohol Use: 4 Number of Drinks Per Day: 3 Total Drinks Per Week: 12 - Recreational Drug Use Recreational Drug Use: Yes Recreational Drug Type: Reports: Marijuana/Hashish Recreational Drug Use Frequency: Socially - Living Situation & Occupation Living situation: Reports: Single Occupation: Disabled (lives in Apartment, Sister and Uncle live in same building.) ED ROS GENERAL - Review of Systems Review Of Systems: See Below Constitutional: Denies: Fever Respiratory: Denies: Shortness of Breath Cardiovascular: Denies: Chest Pain GI/Abdominal: Denies: Nausea, Vomiting Musculoskeletal: Reports: Other (Chronic leg and back pain) Neurological: Reports: Seizure (recent). Denies: Headache Psychiatric: Reports: Depression ED EXAM, GENERAL - Physical Exam Exam: See Below Exam Limited By: Physical Impairment General Appearance: Alert, No Apparent Distress Eye Exam: Right Eye: Periorbital Changes (A small amount of ecchymosis around the right eye from a recent fall), Bilateral Eye: EOMI, PERRL Head: Other (right sided chronic calvarium deficit) Neck: Non-Tender Respiratory/Chest: No Respiratory Distress, Lungs Clear Cardiovascular: Regular Rate, Rhythm GI/Abdominal: Non-Tender Extremities: Leg Pain (with movement) Neurological: Slow to Respond Psychiatric: Depressed Mood, Flat Affect Course - Vital Signs Last Recorded V/S: Last Vital Signs Temp 97.8 F 12/22/17 05:48 Pulse 78 12/22/17 12:05 Resp 14 12/22/17 12:05 BP 107/81 12/22/17 12:05 Pulse Ox 98 12/22/17 12:05 - Orders/Labs/Meds Orders: Active Orders 24 hr Category Date Time Status Insert Jean Catheter [Insert Urinary Catheter] [OM.PC] Care 12/22/17 06:45 Ordered Q24H Urinary Catheter Assessment [RC] ASDIRECTED Care 12/22/17 06:35 Active DRUG SCREEN, URINE [URCHEM] Stat Lab 12/22/17 06:59 Ordered UA W/MICROSCOPIC [URIN] Urgent Lab 12/22/17 06:59 Ordered Restraint Initiate Non-VIOL/Non-SD [OM.PC] Stat Oth 12/22/17 06:23 Ordered Labs: Laboratory Tests 12/22/17 12/22/17 12/22/17 Range/Units 05:55 05:55 05:55 WBC 6.6 (4.5-11.0) K/uL RBC 4.15 (3.30-5.50) M/uL Hgb 12.4 (12.0-15.0) g/dL Hct 37.5 (36.0-48.0) % MCV 90 (80-98) fL MCH 30 (27-31) pg MCHC 33 (32-36) % Plt Count 100 L (150-400) K/uL Neut % (Auto) 39 (36-66) % Lymph % (Auto) 46 H (24-44) % Crook % (Auto) 10 H (2-6) % Eos % (Auto) 5 H (2-4) % Baso % (Auto) 1 (0-1) % Sodium 151 H (140-148) mmol/L Potassium 3.5 L (3.6-5.2) mmol/L Chloride 118 H (100-108) mmol/L Carbon Dioxide 21 (21-32) mmol/L Anion Gap 15.5 H (5.0-14.0) mmol/L BUN 13 D (7-18) mg/dL Creatinine 0.9 (0.6-1.0) mg/dL Est Cr Clr Drug Dosing 63.09 mL/min Estimated GFR (MDRD) > 60 (>60) Glucose 98 (74-106) mg/dL Calcium 9.1 (8.5-10.1) mg/dL Ammonia (11-32) mmol/L Urine Color Urine Appearance Urine pH (4.5-8.0) Ur Specific [place] (1.008-1.030) Urine Protein (NEGATIVE) mg/dL Urine Glucose (UA) (NEGATIVE) mg/dL Urine Ketones (NEGATIVE) mg/dL Urine Occult Blood (NEGATIVE) Urine Nitrite (NEGATIVE) Urine Bilirubin (NEGATIVE) Urine Urobilinogen (NORMAL) mg/dL Ur Leukocyte Esterase (NEGATIVE) Urine RBC (0-5) Urine WBC (0-5) Ur Epithelial Cells Urine Bacteria Urine Mucus Salicylates 0.3 L (2.0-20.0) mg/dL Urine Opiates Screen (NEGATIVE) Ur Oxycodone Screen (NEGATIVE) Urine Methadone Screen (NEGATIVE) Ur Propoxyphene Screen (NEGATIVE) Acetaminophen 0.0 L (10.0-30.0) ug/mL Ur Barbiturates Screen (NEGATIVE) Ur Tricyclics Screen (NEGATIVE) Ur Phencyclidine Scrn (NEGATIVE) Ur Amphetamine Screen (NEGATIVE) U Methamphetamines Scrn (NEGATIVE) Urine MDMA Screen (NEGATIVE) U Benzodiazepines Scrn (NEGATIVE) U Cocaine Metab Screen (NEGATIVE) U Marijuana (THC) Screen (NEGATIVE) Ethyl Alcohol mg/dL 12/22/17 12/22/17 12/22/17 Range/Units 05:55 06:06 06:59 WBC (4.5-11.0) K/uL RBC (3.30-5.50) M/uL Hgb (12.0-15.0) g/dL Hct (36.0-48.0) % MCV (80-98) fL MCH (27-31) pg MCHC (32-36) % Plt Count (150-400) K/uL Neut % (Auto) (36-66) % Lymph % (Auto) (24-44) % Crook % (Auto) (2-6) % Eos % (Auto) (2-4) % Baso % (Auto) (0-1) % Sodium (140-148) mmol/L Potassium (3.6-5.2) mmol/L Chloride (100-108) mmol/L Carbon Dioxide (21-32) mmol/L Anion Gap (5.0-14.0) mmol/L BUN (7-18) mg/dL Creatinine (0.6-1.0) mg/dL Est Cr Clr Drug Dosing mL/min Estimated GFR (MDRD) (>60) Glucose (74-106) mg/dL Calcium (8.5-10.1) mg/dL Ammonia 59 H (11-32) mmol/L Urine Color Yellow Urine Appearance Cloudy Urine pH 6.5 (4.5-8.0) Ur Specific [place] 1.010 (1.008-1.030) Urine Protein Negative (NEGATIVE) mg/dL Urine Glucose (UA) Normal (NEGATIVE) mg/dL Urine Ketones Negative (NEGATIVE) mg/dL Urine Occult Blood Negative (NEGATIVE) Urine Nitrite Negative (NEGATIVE) Urine Bilirubin Negative (NEGATIVE) Urine Urobilinogen Normal (NORMAL) mg/dL Ur Leukocyte Esterase Negative (NEGATIVE) Urine RBC Not seen (0-5) Urine WBC Not seen (0-5) Ur Epithelial Cells Rare Urine Bacteria Many Urine Mucus Rare Salicylates (2.0-20.0) mg/dL Urine Opiates Screen (NEGATIVE) Ur Oxycodone Screen (NEGATIVE) Urine Methadone Screen (NEGATIVE) Ur Propoxyphene Screen (NEGATIVE) Acetaminophen (10.0-30.0) ug/mL Ur Barbiturates Screen (NEGATIVE) Ur Tricyclics Screen (NEGATIVE) Ur Phencyclidine Scrn (NEGATIVE) Ur Amphetamine Screen (NEGATIVE) U Methamphetamines Scrn (NEGATIVE) Urine MDMA Screen (NEGATIVE) U Benzodiazepines Scrn (NEGATIVE) U Cocaine Metab Screen (NEGATIVE) U Marijuana (THC) Screen (NEGATIVE) Ethyl Alcohol 309 mg/dL 12/22/17 Range/Units 06:59 WBC (4.5-11.0) K/uL RBC (3.30-5.50) M/uL Hgb (12.0-15.0) g/dL Hct (36.0-48.0) % MCV (80-98) fL MCH (27-31) pg MCHC (32-36) % Plt Count (150-400) K/uL Neut % (Auto) (36-66) % Lymph % (Auto) (24-44) % Crook % (Auto) (2-6) % Eos % (Auto) (2-4) % Baso % (Auto) (0-1) % Sodium (140-148) mmol/L Potassium (3.6-5.2) mmol/L Chloride (100-108) mmol/L Carbon Dioxide (21-32) mmol/L Anion Gap (5.0-14.0) mmol/L BUN (7-18) mg/dL Creatinine (0.6-1.0) mg/dL Est Cr Clr Drug Dosing mL/min Estimated GFR (MDRD) (>60) Glucose (74-106) mg/dL Calcium (8.5-10.1) mg/dL Ammonia (11-32) mmol/L Urine Color Urine Appearance Urine pH (4.5-8.0) Ur Specific [place] (1.008-1.030) Urine Protein (NEGATIVE) mg/dL Urine Glucose (UA) (NEGATIVE) mg/dL Urine Ketones (NEGATIVE) mg/dL Urine Occult Blood (NEGATIVE) Urine Nitrite (NEGATIVE) Urine Bilirubin (NEGATIVE) Urine Urobilinogen (NORMAL) mg/dL Ur Leukocyte Esterase (NEGATIVE) Urine RBC (0-5) Urine WBC (0-5) Ur Epithelial Cells Urine Bacteria Urine Mucus Salicylates (2.0-20.0) mg/dL Urine Opiates Screen Negative (NEGATIVE) Ur Oxycodone Screen Negative (NEGATIVE) Urine Methadone Screen Negative (NEGATIVE) Ur Propoxyphene Screen Negative (NEGATIVE) Acetaminophen (10.0-30.0) ug/mL Ur Barbiturates Screen Negative (NEGATIVE) Ur Tricyclics Screen Negative (NEGATIVE) Ur Phencyclidine Scrn Negative (NEGATIVE) Ur Amphetamine Screen Negative (NEGATIVE) U Methamphetamines Scrn Negative (NEGATIVE) Urine MDMA Screen Negative (NEGATIVE) U Benzodiazepines Scrn Positive H (NEGATIVE) U Cocaine Metab Screen Negative (NEGATIVE) U Marijuana (THC) Screen Negative (NEGATIVE) Ethyl Alcohol mg/dL Meds: Medications Discontinued Medications Generic Name Dose Route Start Last Admin Trade Name Freq PRN Reason Stop Dose Admin Lactated Ringer's 1,000 mls @ 999 mls/hr 12/22/17 07:02 12/22/17 07:11 Ringers, Lactated IV 12/22/17 08:02 999 mls/hr BOLUS ONE Administration - Re-Assessments/Exams Free Text/Narrative Re-Assessment/Exam: 12/22/17 06:38 Over the first 30 minutes the patient became much more alert, uncooperative and trying to crawl off the bed so for her safety she had to be restrained. She repeatedly asked for pain medicine because of her back and hip pain. Her speech continued to be slurred but she was understandable. A Jean was then placed to obtain a UA and urine drug screen. Departure - Departure Disposition: Home, Self-Care 01 Clinical Impression: Alcohol intoxication Qualifiers: Complication of substance-induced condition: uncomplicated Qualified Code(s): F10.920 - Alcohol use, unspecified with intoxication, uncomplicated - Discharge Information Referrals: PCP,None [Primary Care Provider] - Additional Instructions: Please refrain from alcohol use, Please followup with your primary care provider in 3-5 days if not better, please call return to the emergency department with worsening of symptoms. <OfficerDeshawn - Last Filed: 12/22/17 14:46> Course - Re-Assessments/Exams Free Text/Narrative Re-Assessment/Exam: Took over care from Dr. Del Real at 7 AM patient continued to sleep for the next 8 hours, she did arouse was able to tolerate a meal continues to complain of ongoing pain once pain medications she does have a appointment with pain management on the of this month, states she does not like to take pills 12/22/17 14:21 Departure - Departure Time of Disposition: 14:45 Condition: Poor - Assessment/Plan Plan: Assessment Acuity = acute Site and laterality = alcohol intoxication Etiology = EtOH Manifestations = none Location of injury = Home Lab values = sodium elevated 151 consistent hyponatremia sodium low at 3.5 consistent hypokalemia, CBC unremarkable sodium elevated at 59 probably related to alcohol use your direction positive for benzodiazepines Plan after tolerating meals she was able to ambulate down the childs did ride the bus home Continue to ask for pain medications she will be discharged home follow-up primary care 3-5 days for reevaluation to does have appointment with chronic pain on the of this month did recommend increasing her gabapentin from 100 twice a day to 400 twice a day she declined stated she does not like to take pills This note was dictated using [employer] voice recognition software please call with any questions on syntax or linette.
[2017-12-22] MEDS ORDERED: Lactated Ringers 1,000 ML IV ONE (07:02)
== END 2017-12-22 14:59 | disposition home or self-care (01) ==
LOC: JP.ED 05:37
DX: F10.129 Alcohol abuse with intoxication, unspecified (principal); I10 Essential (primary) hypertension; F17.210 Nicotine dependence, cigarettes, uncomplicated; J45.909 Unspecified asthma, uncomplicated; I25.810 Atherosclerosis of coronary artery bypass graft(s) without angina pectoris; K76.6 Portal hypertension; Z87.442 Personal history of urinary calculi; Z95.1 Presence of aortocoronary bypass graft; Z86.73 Personal history of transient ischemic attack (TIA), and cerebral infarction without residual deficits; Y90.8 Blood alcohol level of 240 mg/100 ml or more; Z91.013 Allergy to seafood; Z88.8 Allergy status to other drugs, medicaments and biological substances; Z79.899 Other long term (current) drug therapy
CPT/HCPCS: 36415; 51702; 80048; 80305; 81001; 82140; 85025; 96360; 99284; G0480; J7120

== ENCOUNTER 2019-06-15 20:13 | Emergency (ER) | payer SELFPAY ==
--- NOTE | 2019-06-15 21:18 | EDM.PDOC ---
ED HPI GENERAL MEDICAL PROBLEM - General Chief Complaint: Genitourinary Problem Stated Complaint: UTI, POSSIBLE YEAST INFEC, PAIN IN VAGINAL, NAUSEA Time Seen by Provider: 06/15/19 20:39 Source of Information: Reports: Patient History Limitations: Reports: No Limitations - History of Present Illness INITIAL COMMENTS - FREE TEXT/NARRATIVE: Cris is a 44 year old female who presents to the ED today with concerns for UTI and vaginal yeast infection. Patient reports urinary frequency as well as vaginal itching and white discharge. Uncertain if possible STD. Denies any fever/chills/back pain. Has not taken anything for her symptoms, nothing really makes her symptoms better or worse. Onset: Gradual Bladder Pain Score (Numeric/FACES): 8 - Related Data Allergies Allergy/AdvReac Type Severity Reaction Status Date / Time Fish Containing Products Allergy Severe Airway Verified 06/15/19 20:47 Tightness ziprasidone [From Geodon] Allergy Severe Airway Verified 06/15/19 20:47 Tightness tree nut Allergy Hives Verified 06/15/19 20:47 lamotrigine [From Lamictal] AdvReac Leg Cramps Verified 06/15/19 20:47 msg Allergy Hives Uncoded 06/15/19 20:47 Home Meds: Home Meds Cyanocobalamin (Vitamin B-12) [B-12] 500 mcg PO DAILY 07/29/17 [History] Gabapentin [Neurontin] 100 mg PO BID 07/29/17 [History] Lactulose 15 ml PO BID 07/29/17 [History] levETIRAcetam [Keppra] 500 mg PO BID 07/29/17 [History] Omeprazole 10 mg PO DAILY 10/19/17 [History] Past Medical History HEENT History: Reports: Hard of Hearing, Impaired Vision Cardiovascular History: Reports: CAD, [place], Other (See Below) Other Cardiovascular History: portal hypertension Respiratory History: Reports: Asthma Gastrointestinal History: Reports: Cirrhosis, Other (See Below) Other Gastrointestinal History: ascites, liver disease, cholecystitis, hepatic encephalopathy, stent placed in liver Genitourinary History: Reports: Renal Calculus, Other (See Below) Other Genitourinary History: urethral stent placed that extends to kidney SPD MANAGER History: Reports: Other (See Below) Other SPD MANAGER History: Irregular montes de oca Musculoskeletal History: Reports: Fracture Other Musculoskeletal History: colar bone Neurological History: Reports: Brain Injury, CVA, Head Trauma, Seizure, Other ( See Below) Other Neuro History: TBI ICH Skull defect Psychiatric History: Reports: Anxiety, Depression, Psych Hospitalization(s), Suicide Attempt Hematologic History: Reports: Blood Transfusion(s), Iron Deficiency, Other (See Below) Other Hematologic History: Hypokelemia, hypomagnesemia, hyponatremia Oncologic (Cancer) History: Reports: Cervix - Infectious Disease History Infectious Disease History: Reports: Chicken Pox - Past Surgical History HEENT Surgical History: Reports: None Cardiovascular Surgical History: Reports: Coronary Artery Bypass Respiratory Surgical History: Reports: None GI Surgical History: Reports: Cholecystectomy Female Surgical History: Reports: Other (See Below) Other Female Surgeries/Procedures: removal of abscess from left breast Neurological Surgical History: Reports: None Oncologic Surgical History: Reports: None Dermatological Surgical History: Reports: None Social & Family History - Family History Family Medical History: Noncontributory - Tobacco Use Smoking Status *Q: Current Every Day Smoker Years of Tobacco use: 40 Packs/Tins Daily: 0.2 Used Tobacco, but Quit: No Second Hand Smoke Exposure: Yes - Caffeine Use Caffeine Use: Reports: Coffee - Recreational Drug Use Recreational Drug Use: No - Living Situation & Occupation Living situation: Reports: Single Occupation: Disabled (lives in Apartment, Sister and Uncle live in same building.) ED ROS GENERAL - Review of Systems Review Of Systems: ROS reveals no pertinent complaints other than HPI. ED EXAM, RENAL/ - Physical Exam Exam: See Below Exam Limited By: No Limitations General Appearance: Alert, WD/WN, No Apparent Distress Head: Atraumatic Neck: Normal Inspection, Supple, Non-Tender Respiratory/Chest: No Respiratory Distress, Lungs Clear Cardiovascular: Normal Peripheral Pulses GI/Abdominal: Normal Bowel Sounds (Female) Exam: Normal External Exam, Normal Speculum Exam, Vaginal Discharge (white). No: Cervical Lesions, Vaginal Bleeding Extremities: Normal Inspection Neurological: Alert, Oriented, CN II-XII Intact Psychiatric: Normal Affect, Normal Mood Skin Exam: Warm, Dry, Intact Lymphatic: No Adenopathy Course - Vital Signs Last Recorded V/S: Last Vital Signs Temp 37.0 C 06/15/19 20:56 Pulse 81 06/15/19 20:56 Resp 18 06/15/19 20:56 BP 125/58 L 06/15/19 20:56 Pulse Ox 95 06/15/19 20:56 Cris is a 44 year old female who presents to the ED today with c/o Urinary frequency and vaginal discharge. Please refer to HPI and focused exam. UA negative, culture pending. Pelvic exam done with RN at bedside after obtaining patient verbal consent. White vaginal discharge present in vault. No CMT. Wet prep returns with clue cells, will treat with Metro-gel. Patient can follow up with PCP, reasons to return discussed, patient agreeable and discharged in stable condition - Orders/Labs/Meds Orders: Active Orders 24 hr Category Date Time Status CHLAMYDIA/GC AMPLIFICATION Stat Lab 06/15/19 21:04 Received CULTURE URINE [RM] Stat Lab 06/15/19 20:55 Received Labs: Laboratory Tests 06/15/19 Range/Units 20:38 Urine Color Yellow (YELLOW) Urine Appearance Slightly cloudy A (CLEAR) Urine pH 7.0 (5.0-8.0) Ur Specific [place] 1.025 (1.008-1.030) Urine Protein Negative (NEGATIVE) mg/dL Urine Glucose (UA) Normal (NEGATIVE) mg/dL Urine Ketones Negative (NEGATIVE) mg/dL Urine Occult Blood Trace (NEGATIVE) Urine Nitrite Negative (NEGATIVE) Urine Bilirubin Negative (NEGATIVE) Urine Urobilinogen 1.0 (0.2-1.0) EU/dL Ur Leukocyte Esterase Negative (NEGATIVE) Urine RBC 5-10 H (0-5) Urine WBC 0-5 (0-5) Ur Epithelial Cells Moderate Amorphous Sediment Not seen Urine Bacteria Moderate Urine Mucus Few Departure - Departure Time of Disposition: 22:00 Disposition: Home, Self-Care 01 Condition: Good Clinical Impression: Bacterial vaginosis - Discharge Information Instructions: Bacterial Vaginosis, [id number] Referrals: PCP,None [Primary Care Provider] - Forms: ED Department Discharge Additional Instructions: Cris, Your urine is not infected but I did sent if for a culture, if this return positive, you will be notified. Your wet prep is negative for yeast but does contain clue cells which means you do have Bacterial Vaginosis. I have prescribed you Flagyl for this, it is administered vaginally, you can start this tomorrow as you will have to have filled at a pharmacy. GC/Chlamydia tests are pending as well, again if these return positive you will receive a phone call and appropriate treatment at that time. - My Orders Last 24 Hours: My Active Orders 06/15/19 20:55 CULTURE URINE [RM] Stat 06/15/19 21:04 CHLAMYDIA/GC AMPLIFICATION Stat - Assessment/Plan Last 24 Hours: My Active Orders 06/15/19 20:55 CULTURE URINE [RM] Stat 06/15/19 21:04 CHLAMYDIA/GC AMPLIFICATION Stat
[2019-06-18 11:09] LABS: CHLAMYDIA TRACHOMATIS, NAA Negative (Negative); NEISSERIA GONORRHOEAE, NAA Negative (Negative)
== END 2019-06-15 21:47 | disposition home or self-care (01) ==
LOC: JP.ED 20:13
DX: N76.0 Acute vaginitis (principal); I25.10 Atherosclerotic heart disease of native coronary artery without angina pectoris; I25.2 Old myocardial infarction; F17.210 Nicotine dependence, cigarettes, uncomplicated; Z79.899 Other long term (current) drug therapy; Z95.1 Presence of aortocoronary bypass graft; Z90.49 Acquired absence of other specified parts of digestive tract; Z91.013 Allergy to seafood; Z88.8 Allergy status to other drugs, medicaments and biological substances
CPT/HCPCS: 81001; 87086; 87210; 87491; 87591; 99283

== ENCOUNTER 2019-07-25 16:37 | Emergency (ER) | payer MEDICAID ==
--- NOTE | 2019-07-25 18:32 | EDM.PDOC ---
ED HPI GENERAL MEDICAL PROBLEM - General Chief Complaint: Abdominal Pain Stated Complaint: LIVER FAILURE/NOT FEELING WELL Time Seen by Provider: 07/25/19 18:36 Source of Information: Reports: Patient History Limitations: Reports: No Limitations - History of Present Illness INITIAL COMMENTS - FREE TEXT/NARRATIVE: Not feeling well x 3 days. History of end stage liver disease with hospitalization for encephalopathy. She normally takes high dose lactulose on a regular basis to avoid constipation and also help her liver status. She has not taken her lactulose for seven days and today had a large for her size dark stool. She denies that it was a black stool and refers to it as baby Redmond in size. She's had intermittent abdominal pain with nausea and one episode of vomiting. She's been hospitalized several times this year with delirium and encephalopathy. She is concerned that she is heading that direction at this time and that was the reason for presentation tonight. Onset: Gradual Duration: Day(s): (3) Location: Reports: Abdomen Quality: Reports: Burning, Dull Severity: Mild Improves with: Reports: None Worsens with: Reports: None Associated Symptoms: Denies: Confusion upper abd Pain Score (Numeric/FACES): 9 - Related Data Allergies Allergy/AdvReac Type Severity Reaction Status Date / Time Fish Containing Products Allergy Severe Airway Verified 07/25/19 18:21 Tightness ziprasidone [From Geodon] Allergy Severe Airway Verified 07/25/19 18:21 Tightness tree nut Allergy Hives Verified 07/25/19 18:21 lamotrigine [From Lamictal] AdvReac Leg Cramps Verified 07/25/19 18:21 msg Allergy Hives Uncoded 07/25/19 18:21 Home Meds: Home Meds Cyanocobalamin (Vitamin B-12) [B-12] 500 mcg PO DAILY 07/29/17 [History] Gabapentin [Neurontin] 100 mg PO BID 07/29/17 [History] Lactulose 15 ml PO BID 07/29/17 [History] levETIRAcetam [Keppra] 500 mg PO BID 07/29/17 [History] Omeprazole 10 mg PO DAILY 10/19/17 [History] Past Medical History HEENT History: Reports: Hard of Hearing, Impaired Vision Cardiovascular History: Reports: CAD, [place], Other (See Below) Other Cardiovascular History: portal hypertension Respiratory History: Reports: Asthma Gastrointestinal History: Reports: Cirrhosis, Other (See Below) Other Gastrointestinal History: ascites, liver disease, cholecystitis, hepatic encephalopathy, stent placed in liver Genitourinary History: Reports: Renal Calculus, Other (See Below) Other Genitourinary History: urethral stent placed that extends to kidney 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 MACHINE OPERATOR History: Irregular [place] oca Musculoskeletal History: Reports: Fracture Other Musculoskeletal History: colar bone Neurological History: Reports: Brain Injury, CVA, Head Trauma, Seizure, Other ( See Below) Other Neuro History: TBI ICH Skull defect Psychiatric History: Reports: Anxiety, Depression, Psych Hospitalization(s), Suicide Attempt Hematologic History: Reports: Blood Transfusion(s), Iron Deficiency, Other (See Below) Other Hematologic History: Hypokelemia, hypomagnesemia, hyponatremia Oncologic (Cancer) History: Reports: Cervix - Infectious Disease History Infectious Disease History: Reports: Chicken Pox - Past Surgical History HEENT Surgical History: Reports: None Cardiovascular Surgical History: Reports: Coronary Artery Bypass Respiratory Surgical History: Reports: None GI Surgical History: Reports: Cholecystectomy Female Surgical History: Reports: Other (See Below) Other Female Surgeries/Procedures: removal of abscess from left breast Neurological Surgical History: Reports: None Oncologic Surgical History: Reports: None Dermatological Surgical History: Reports: None Social & Family History - Family History Family Medical History: Noncontributory - Caffeine Use Caffeine Use: Reports: Coffee - Living Situation & Occupation Living situation: Reports: Single Occupation: Disabled (lives in Apartment, Sister and Uncle live in same building.) ED ROS GENERAL - Review of Systems Review Of Systems: See Below Constitutional: Reports: Chills, Malaise. Denies: Fever HEENT: Reports: No Symptoms Respiratory: Reports: No Symptoms Cardiovascular: Reports: No Symptoms GI/Abdominal: Reports: Abdominal Pain, Decreased Appetite : Reports: No Symptoms Musculoskeletal: Reports: No Symptoms Neurological: Reports: Confusion (She states that she feels like she has "early confusion."), Dizziness ED EXAM, GI/ABD - Physical Exam Exam: See Below Exam Limited By: No Limitations General Appearance: Alert, No Apparent Distress, Cachetic Throat/Mouth: Normal Inspection Respiratory/Chest: No Respiratory Distress Cardiovascular: Regular Rate, Rhythm GI/Abdominal Exam: Normal Bowel Sounds, Soft, Tender (LLQ and left flank pain radiating along costal margins). No: No Distention, Guarding, Rigid Extremities: Normal Inspection Skin Exam: Pallor Course - Vital Signs Last Recorded V/S: Last Vital Signs Temp 37.2 C 07/25/19 19:05 Pulse 60 07/25/19 19:05 Resp 15 07/25/19 19:05 BP 108/44 L 07/25/19 19:05 Pulse Ox 99 07/25/19 19:05 - Orders/Labs/Meds Orders: Active Orders 24 hr Category Date Time Status Saline Lock Insert [OM.PC] Routine Oth 07/25/19 18:34 Ordered Labs: Laboratory Tests 07/25/19 07/25/19 07/25/19 Range/Units 18:47 18:47 18:47 WBC 5.0 (4.5-11.0) K/uL RBC 3.97 (3.30-5.50) M/uL Hgb 12.8 (12.0-15.0) g/dL Hct 37.2 (36.0-48.0) % MCV 94 (80-98) fL MCH 32 H (27-31) pg MCHC 34 (32-36) % Plt Count 99 L (150-400) K/uL Neut % (Auto) 35 L (36-66) % Lymph % (Auto) 50 H (24-44) % [place] % (Auto) 10 H (2-6) % Eos % (Auto) 4 (2-4) % Baso % (Auto) 1 (0-1) % Sodium 141 (140-148) mmol/L Potassium 3.7 (3.6-5.2) mmol/L Chloride 109 H (100-108) mmol/L Carbon Dioxide 25 (21-32) mmol/L Anion Gap 10.7 (5.0-14.0) mmol/L BUN 10 (7-18) mg/dL Creatinine 0.7 (0.6-1.0) mg/dL Est Cr Clr Drug Dosing 79.42 mL/min Estimated GFR (MDRD) > 60 (>60) Glucose 98 (74-106) mg/dL Calcium 9.1 (8.5-10.1) mg/dL Total Bilirubin 0.4 (0.2-1.0) mg/dL AST 24 (15-37) U/L ALT 24 (12-78) U/L Alkaline Phosphatase 129 H (46-116) U/L Ammonia 53 H (11-32) mmol/L C-Reactive Protein (0.0-0.3) mg/dL Total Protein 6.6 (6.4-8.2) g/dL Albumin 3.1 L (3.4-5.0) g/dL Globulin 3.5 (2.3-3.5) g/dL Albumin/Globulin Ratio 0.9 L (1.2-2.2) Lipase 156 (73-393) U/L Urine Color (YELLOW) Urine Appearance (CLEAR) Urine pH (5.0-8.0) Ur Specific [place] (1.008-1.030) Urine Protein (NEGATIVE) mg/dL Urine Glucose (UA) (NEGATIVE) mg/dL Urine Ketones (NEGATIVE) mg/dL Urine Occult Blood (NEGATIVE) Urine Nitrite (NEGATIVE) Urine Bilirubin (NEGATIVE) Urine Urobilinogen (0.2-1.0) EU/dL Ur Leukocyte Esterase (NEGATIVE) Urine RBC (0-5) Urine WBC (0-5) Ur Epithelial Cells Amorphous Sediment Urine Bacteria Urine Mucus 07/25/19 07/25/19 Range/Units 18:47 20:23 WBC (4.5-11.0) K/uL RBC (3.30-5.50) M/uL Hgb (12.0-15.0) g/dL Hct (36.0-48.0) % MCV (80-98) fL MCH (27-31) pg MCHC (32-36) % Plt Count (150-400) K/uL Neut % (Auto) (36-66) % Lymph % (Auto) (24-44) % [place] % (Auto) (2-6) % Eos % (Auto) (2-4) % Baso % (Auto) (0-1) % Sodium (140-148) mmol/L Potassium (3.6-5.2) mmol/L Chloride (100-108) mmol/L Carbon Dioxide (21-32) mmol/L Anion Gap (5.0-14.0) mmol/L BUN (7-18) mg/dL Creatinine (0.6-1.0) mg/dL Est Cr Clr Drug Dosing mL/min Estimated GFR (MDRD) (>60) Glucose (74-106) mg/dL Calcium (8.5-10.1) mg/dL Total Bilirubin (0.2-1.0) mg/dL AST (15-37) U/L ALT (12-78) U/L Alkaline Phosphatase (46-116) U/L Ammonia (11-32) mmol/L C-Reactive Protein 0.09 (0.0-0.3) mg/dL Total Protein (6.4-8.2) g/dL Albumin (3.4-5.0) g/dL Globulin (2.3-3.5) g/dL Albumin/Globulin Ratio (1.2-2.2) Lipase (73-393) U/L Urine Color Yellow (YELLOW) Urine Appearance Slightly cloudy A (CLEAR) Urine pH 7.5 (5.0-8.0) Ur Specific [place] 1.020 (1.008-1.030) Urine Protein Negative (NEGATIVE) mg/dL Urine Glucose (UA) Negative (NEGATIVE) mg/dL Urine Ketones Negative (NEGATIVE) mg/dL Urine Occult Blood Trace-intact H (NEGATIVE) Urine Nitrite Negative (NEGATIVE) Urine Bilirubin Negative (NEGATIVE) Urine Urobilinogen 1.0 (0.2-1.0) EU/dL Ur Leukocyte Esterase Negative (NEGATIVE) Urine RBC 0-5 (0-5) Urine WBC Not seen (0-5) Ur Epithelial Cells Rare Amorphous Sediment Many Urine Bacteria Few Urine Mucus Rare Meds: Medications Discontinued Medications Generic Name Dose Route Start Last Admin Trade Name Freq PRN Reason Stop Dose Admin Sodium Chloride 1,000 mls @ 250 mls/hr 07/25/19 18:45 07/25/19 19:03 Normal Saline IV 250 mls/hr ASDIRECTED JOSE Administration Sodium Chloride 10 ml 07/25/19 18:34 07/25/19 19:03 Saline Flush FLUSH 10 ml ASDIRECTED PRN Administration Keep Vein Open - Re-Assessments/Exams Free Text/Narrative Re-Assessment/Exam: 07/25/19 18:38 IV fluids will be given while workup continues. 07/26/19 02:28 I returned later to review test results which look very good. Her ammonia level is minimally elevated and given the fact that she has not taken lactulose for the last week, that makes sense. There is nothing in her clinical presentation at this time that indicates a need for hospitalization. I recommend restarting all of her previous medications that she has stopped. Small amounts of food and liquid regularly will sit better with her system. If she feels worse after several days or is not improving, she should contact primary care or return here Departure - Departure Time of Disposition: 21:07 Disposition: Home, Self-Care 01 Condition: Good Clinical Impression: Gastroenteritis, Abdominal pain - Discharge Information *PRESCRIPTION DRUG MONITORING PROGRAM REVIEWED*: Not Applicable *COPY OF PRESCRIPTION DRUG MONITORING REPORT IN PATIENT NOMAN: Not Applicable Instructions: Abdominal Pain, Adult, [id number] Referrals: PCP,None [Primary Care Provider] - Forms: ED Department Discharge Additional Instructions: Resumed use old medications including lactulose to help with constipation and reduce problems associated with her liver disease. He small amounts frequently and drink adequate fluids also to help it feel better. Recheck with primary care as needed. Return to ER if feeling worse. - My Orders Last 24 Hours: My Active Orders 07/25/19 18:34 Saline Lock Insert [OM.PC] Routine - Assessment/Plan Last 24 Hours: My Active Orders 07/25/19 18:34 Saline Lock Insert [OM.PC] Routine
[2019-07-25] MEDS ORDERED: Sodium Chloride 0.9% 10 ML Syringe FLUSH PRN (18:34)
[2019-07-25] MEDS ORDERED: Sodium Chloride 0.9% 1,000 ML IV SCH (18:45)
== END 2019-07-25 21:21 | disposition home or self-care (01) ==
LOC: JP.ED 16:37
DX: K52.9 Noninfective gastroenteritis and colitis, unspecified (principal); I25.10 Atherosclerotic heart disease of native coronary artery without angina pectoris; I25.2 Old myocardial infarction; J45.909 Unspecified asthma, uncomplicated; Z86.73 Personal history of transient ischemic attack (TIA), and cerebral infarction without residual deficits; Z95.1 Presence of aortocoronary bypass graft; Z91.013 Allergy to seafood; Z88.8 Allergy status to other drugs, medicaments and biological substances; Z91.010 Allergy to peanuts; Z91.02 Food additives allergy status
CPT/HCPCS: 36415; 80053; 81001; 82140; 83690; 85025; 86140; 96360; 96361; 99284; J7030

== ENCOUNTER 2019-09-16 06:03 | Emergency (ER) | payer MEDICAID ==
[2019-09-16] MEDS ORDERED: fentaNYL 100 MCG/2 ML SDV IM ONE (06:37)
--- NOTE | 2019-09-16 06:41 | EDM.PDOC ---
<OfficerDeshawn - Last Filed: 09/16/19 06:39> ED HPI GENERAL MEDICAL PROBLEM - General Chief Complaint: Back Pain or Injury Stated Complaint: FALL VIA NORTH Time Seen by Provider: 09/16/19 06:32 Source of Information: Reports: Patient, EMS, RN Notes Reviewed History Limitations: Reports: No Limitations - History of Present Illness INITIAL COMMENTS - FREE TEXT/NARRATIVE: 44-year-old female presents emergency department today following a fall at home , the power was out it was dark she fell backwards hit her head on the wall she is complaining of headache, neck pain and tailbone pain, there was no loss of consciousness she has no nausea or vomiting no loss of bowel or bladder Lower Back Pain Score (Numeric/FACES): 9 - Related Data Allergies Allergy/AdvReac Type Severity Reaction Status Date / Time Fish Containing Products Allergy Severe Airway Verified 09/16/19 06:12 Tightness ziprasidone [From Geodon] Allergy Severe Airway Verified 09/16/19 06:12 Tightness tree nut Allergy Hives Verified 09/16/19 06:12 lamotrigine [From Lamictal] AdvReac Leg Cramps Verified 09/16/19 06:12 msg Allergy Hives Uncoded 09/16/19 06:12 Home Meds: Home Meds Cyanocobalamin (Vitamin B-12) [B-12] 500 mcg PO DAILY 07/29/17 [History] Gabapentin [Neurontin] 300 mg PO BID 07/29/17 [History] Lactulose 30 ml PO BID 07/29/17 [History] levETIRAcetam [Keppra] 500 mg PO BID 07/29/17 [History] Omeprazole 20 mg PO DAILY 10/19/17 [History] Cholecalciferol (Vitamin D3) [Vitamin D3] 1 tab PO BID 09/16/19 [History] Folic Acid 1 mg PO DAILY 09/16/19 [History] Magnesium 30 mg PO DAILY 09/16/19 [History] Past Medical History HEENT History: Reports: Hard of Hearing, Impaired Vision Cardiovascular History: Reports: CAD, [place], Other (See Below) Other Cardiovascular History: portal hypertension Respiratory History: Reports: Asthma Gastrointestinal History: Reports: Cirrhosis, Other (See Below) Other Gastrointestinal History: ascites, liver disease, cholecystitis, hepatic encephalopathy, stent placed in liver Genitourinary History: Reports: Renal Calculus, Other (See Below) Other Genitourinary History: urethral stent placed that extends to kidney 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 [place] Musculoskeletal History: Reports: Fracture Other Musculoskeletal History: colar bone Neurological History: Reports: Brain Injury, CVA, Head Trauma, Seizure, Other ( See Below) Other Neuro History: TBI ICH Skull defect Psychiatric History: Reports: Anxiety, Depression, Psych Hospitalization(s), Suicide Attempt Hematologic History: Reports: Blood Transfusion(s), Iron Deficiency, Other (See Below) Other Hematologic History: Hypokelemia, hypomagnesemia, hyponatremia Oncologic (Cancer) History: Reports: Cervix - Infectious Disease History Infectious Disease History: Reports: Chicken Pox - Past Surgical History HEENT Surgical History: Reports: None Cardiovascular Surgical History: Reports: Coronary Artery Bypass Respiratory Surgical History: Reports: None GI Surgical History: Reports: Cholecystectomy Female Surgical History: Reports: Other (See Below) Other Female Surgeries/Procedures: removal of abscess from left breast Neurological Surgical History: Reports: None Oncologic Surgical History: Reports: None Dermatological Surgical History: Reports: None Social & Family History - Family History Family Medical History: Noncontributory - Tobacco Use Smoking Status *Q: Current Every Day Smoker Years of Tobacco use: 12 Packs/Tins Daily: 1 Used Tobacco, but Quit: No Tobacco Use Comment: Now smokes 2 cigarettes daily Second Hand Smoke Exposure: No - Caffeine Use Caffeine Use: Reports: Coffee - Alcohol Use Days Per Week of Alcohol Use: 7 Number of Drinks Per Day: 30 Total Drinks Per Week: 210 Date of Last Drink: 01/27/14 - Recreational Drug Use Recreational Drug Use: Yes Drug Use in Last 12 Months: No Recreational Drug Type: Reports: Marijuana/Hashish Recreational Drug Use Frequency: Socially - Living Situation & Occupation Living situation: Reports: Single Occupation: Disabled (lives in Apartment, Sister and Uncle live in same building.) ED ROS GENERAL - Review of Systems Review Of Systems: See Below Constitutional: Reports: No Symptoms HEENT: Reports: No Symptoms Respiratory: Reports: No Symptoms Cardiovascular: Reports: No Symptoms GI/Abdominal: Reports: No Symptoms : Reports: No Symptoms Musculoskeletal: Reports: Neck Pain, Other (Tailbone pain) Neurological: Reports: Headache ED EXAM, HEAD INJURY - Physical Exam Exam: See Below Exam Limited By: No Limitations General Appearance: Alert, WD/WN, No Apparent Distress Head: Atraumatic, Normocephalic Nexus Criteria: Posterior, Midline Cervical Tenderness. No: Evidence of Intoxication, Altered Level of Consciousness, Focal Neurological Deficit, Painful Distraction Injuries Eyes: Bilateral Eye: EOMI, Normal Inspection, PERRL Ears: Normal External Exam, Normal Canal, Hearing Grossly Normal, Normal TMs Nose: Normal Inspection, Normal Mucousa, No Blood Throat/Mouth: Normal Inspection, Normal Lips, Normal Teeth, Normal Gums, Normal Oropharynx, Normal Voice, No Airway Compromise Neck: Tenderness, Tender Midline Respiratory: No Respiratory Distress, Lungs Clear, Normal Breath Sounds, No Accessory Muscle Use, Chest Non-Tender Cardiovascular: Regular Rate, Rhythm, No Murmur GI/Abdominal Exam: Soft, Non-Tender Back Exam: Decreased Range of Motion, Vertebral Tenderness (Coccyx region). No : CVA Tenderness (R), CVA Tenderness (L) Extremities: Normal Inspection, No Pedal Edema Course - Vital Signs Last Recorded V/S: Last Vital Signs Temp 37.7 C 09/16/19 06:31 Pulse 68 09/16/19 06:31 Resp 16 09/16/19 06:31 BP 113/62 09/16/19 06:31 Pulse Ox 98 09/16/19 06:31 - Orders/Labs/Meds Meds: Medications Discontinued Medications Generic Name Dose Route Start Last Admin Trade Name Juan PRN Reason Stop Dose Admin Fentanyl 50 mcg 09/16/19 06:37 09/16/19 07:10 Sublimaze IM 09/16/19 06:38 50 mcg ONETIME ONE Administration Departure - Departure Disposition: Home, Self-Care 01 Clinical Impression: Coccygeal pain Fall Qualifiers: Encounter type: initial encounter Qualified Code(s): W19.XXXA - Unspecified fall, initial encounter - Discharge Information Referrals: PCP,None [Primary Care Provider] - Forms: ED Department Discharge Additional Instructions: We did not identify any injuries during your work up in the ED Please take tylenol as needed for pain. Follow up with your primary doctor as needed. Sepsis Event Note - Evaluation Sepsis Screening Result: No Definite Risk - Focused Exam Vital Signs: Vital Signs Temp Pulse Resp BP Pulse Ox 09/16/19 06:31 37.7 C 68 16 113/62 98 Date Exam was Performed: 09/16/19 Time Exam was Performed: 06:39 <Jason Collins - Last Filed: 09/16/19 08:29> Course - Re-Assessments/Exams Free Text/Narrative Re-Assessment/Exam: I received this patient in signout from Officer pending imaging. CT of the head and neck is negative. Plain films of the coccyx are unremarkable. The patient is feeling well and is safe for discharge with symptomatic treatment as needed. 09/16/19 08:27 Departure - Departure Time of Disposition: 08:28 Sepsis Event Note - Focused Exam Date Exam was Performed: 09/16/19 Time Exam was Performed: 08:27
--- NOTE | 2019-09-16 08:03 | CRLCT ---
INDICATION: Head injury. Patient fell. COMPARISON: Head CT dated 12/20/2017 TECHNIQUE: A CT volumetric acquisition was performed of the brain without IV contrast. FINDINGS: There is stable appearance of a large right craniectomy defect. There are stable focal areas of encephalomalacia within the posterior medial right occipital lobe and at the juncture of the posterior right frontal and anterior right parietal lobes. There is no evidence of a new intraparenchymal hemorrhage and no evidence of epidural or subdural hematoma formation. There is stable ex vacuo dilatation the right lateral ventricle. No focal lesions are noted within the contralateral left cerebral hemisphere. Cerebellum appears intact. Mastoid air cells and middle ear cavities are clear. There is mild inflammation within a few ethmoid air cells. There is no evidence of a fracture within the calvarium. IMPRESSION: Stable postsurgical changes and encephalomalacia within the right cerebral hemisphere. No evidence of acute hemorrhage or mass effect. Dictated by Kiran Harris MD @ 09/16/2019 8:01:00 AM Please note that all CT scans at this facility use dose modulation, iterative reconstruction, and/or weight-based dosing when appropriate to reduce radiation dose to as low as reasonably achievable. Dictated by: Kiran Harris MD @ 09/16/2019 08:01:10 (Electronically Signed)
--- NOTE | 2019-09-16 08:11 | CRLCT ---
INDICATION: Neck pain. Patient fell. TECHNIQUE: A CT volumetric acquisition was performed of the cervical spine without IV contrast. FINDINGS: The cervical vertebra appear anatomically aligned on the sagittal and coronal reformations. There is no evidence of a fracture. There is mild hypertrophic spurring about the articulation of the odontoid process and anterior arch of C1. There is disc degeneration and hypertrophic spurring within the posterior uncovertebral joints and anterior vertebral margins of C4-5, C5-6 and C6-7. The facet joints are anatomically aligned. There is no evidence of ankylosis or significant hypertrophic spurring within the facet joints. The posterior elements and spinous processes appear intact. There is no evidence of a paraspinal or epidural hematoma. IMPRESSION: Disc degeneration evident within the mid and lower cervical spine. No evidence of a fracture or subluxation within the cervical spine. Dictated by Kiran Harris MD @ 09/16/2019 8:09:56 AM Please note that all CT scans at this facility use dose modulation, iterative reconstruction, and/or weight-based dosing when appropriate to reduce radiation dose to as low as reasonably achievable. Dictated by: Kiran Harris MD @ 09/16/2019 08:10:05 (Electronically Signed)
--- NOTE | 2019-09-16 08:14 | CRLCR ---
INDICATION: Pain. Patient fell. TECHNIQUE: 3 view sacrum and coccyx FINDINGS: The sacroiliac joints appear intact. There is no evidence of a fracture or displacement within the sacrum and coccyx. The presacral soft tissues appear normal. IMPRESSION: Normal sacrum and coccyx. Dictated by Kiran Harris MD @ 09/16/2019 8:12:58 AM Dictated by: Kiran Harris MD @ 09/16/2019 08:13:08 (Electronically Signed)
== END 2019-09-16 08:35 | disposition home or self-care (01) ==
LOC: JP.ED 06:03
DX: M53.3 Sacrococcygeal disorders, not elsewhere classified (principal); I10 Essential (primary) hypertension; I25.2 Old myocardial infarction; F17.210 Nicotine dependence, cigarettes, uncomplicated; Z91.018 Allergy to other foods; Z91.013 Allergy to seafood; Z88.8 Allergy status to other drugs, medicaments and biological substances; Z79.899 Other long term (current) drug therapy; W19.XXXA Unspecified fall, initial encounter
CPT/HCPCS: 70450; 72125; 72220; 96372; 99283; 99284; J3010

== ENCOUNTER 2019-09-29 16:03 | Emergency (ER) | payer MEDICAID ==
[2019-09-29] MEDS ORDERED: Ondansetron 4 MG/2 ML SDV IVPUSH ONE (17:12)
[2019-09-29] MEDS ORDERED: HYDROmorphone 0.5 MG/0.5 ML Syringe IVPUSH ONE ×2 (17:13→20:39)
[2019-09-29] MEDS ORDERED: Sodium Chloride 0.9% 1,000 ML IV SCH (17:15)
--- NOTE | 2019-09-29 17:18 | EDM.PDOC ---
<Susana Godinez - Last Filed: 09/29/19 17:56> ED HPI GENERAL MEDICAL PROBLEM - General Chief Complaint: Genitourinary Problem Stated Complaint: INFECTION Time Seen by Provider: 09/29/19 17:13 Source of Information: Reports: Patient History Limitations: Reports: No Limitations - History of Present Illness INITIAL COMMENTS - FREE TEXT/NARRATIVE: pt is having severe pain up in her abdoman when she voids. She has had a increase in her # of stools per day. She has had very liquid stools. These are hard to evaluate because of the laculose therapy. Pt has supraspupic pain and some left lower abdomanal pain. Onset: Other ( This has been going on for the pasr 2-3 days. ) Duration: Hour(s): Location: Reports: Abdomen Associated Symptoms: Reports: Nausea/Vomiting, Weakness Left Flank Pain Score (Numeric/FACES): 8 - Related Data Allergies Allergy/AdvReac Type Severity Reaction Status Date / Time Fish Containing Products Allergy Severe Airway Verified 09/29/19 16:32 Tightness ziprasidone [From Geodon] Allergy Severe Airway Verified 09/29/19 16:32 Tightness tree nut Allergy Hives Verified 09/29/19 16:32 lamotrigine [From Lamictal] AdvReac Leg Cramps Verified 09/29/19 16:32 msg Allergy Hives Uncoded 09/29/19 16:32 Home Meds: Home Meds Cyanocobalamin (Vitamin B-12) [B-12] 250 mcg PO DAILY 07/29/17 [History] Gabapentin [Neurontin] 200 mg PO BID 07/29/17 [History] Lactulose 30 ml PO TID 07/29/17 [History] levETIRAcetam [Keppra] 500 mg PO BID 07/29/17 [History] Omeprazole 20 mg PO BID 10/19/17 [History] Cholecalciferol (Vitamin D3) [Vitamin D3] 1 tab PO DAILY 09/16/19 [History] Folic Acid 1 mg PO DAILY 09/16/19 [History] Magnesium 400 mg PO DAILY 09/16/19 [History] Albuterol Sulfate [Proventil Hfa] 6.7 gm IH Q4H 09/29/19 [History] Albuterol [Proventil Neb Soln] 2.5 mg INH Q4H PRN 09/29/19 [History] Calcium Carbonate [Tums] 500 mg PO QID PRN 09/29/19 [History] Docusate Sodium 200 mg PO BID PRN 09/29/19 [History] Ferrous Gluconate 324 mg PO DAILY 09/29/19 [History] Furosemide 40 mg PO DAILY 09/29/19 [History] Lidocaine/Kinesiology Tape [Lidopure Patch 5% Combo Pack] 1 each TP DAILY [History] Methyl Salicylate/Menthol [Salonpas Patch] 1 each TP Q24H 09/29/19 [History] Multivit with Minerals No.55 [Centrum Flavor Burst Adult] 1 tab PO DAILY [History] Nitrofurantoin Monohyd/M-Cryst [Macrobid 100 mg Capsule] 1 tab PO BID 09/29/19 [ History] Nitroglycerin [Nitrostat] 0.4 mg SL ASDIRECTED PRN 09/29/19 [History] Ondansetron [Zofran ODT] 1 tab PO Q8H PRN 09/29/19 [History] Rifaximin [Xifaxan] 550 mg PO BID 09/29/19 [History] Spironolactone [Aldactone] 100 mg PO DAILY 09/29/19 [History] Thiamine [Vitamin B-1] 1 tab PO DAILY 09/29/19 [History] hydrOXYzine HCL [Hydroxyzine HCl] 100 mg PO QID PRN 09/29/19 [History] oxyCODONE 5 mg PO Q6H PRN 09/29/19 [History] Past Medical History HEENT History: Reports: Hard of Hearing, Impaired Vision Cardiovascular History: Reports: CAD, [place], Other (See Below) Other Cardiovascular History: portal hypertension Respiratory History: Reports: Asthma Gastrointestinal History: Reports: Cirrhosis, Other (See Below) Other Gastrointestinal History: ascites, liver disease, cholecystitis, hepatic encephalopathy, stent placed in liver Genitourinary History: Reports: Renal Calculus, Other (See Below) Other Genitourinary History: urethral stent placed that extends to kidney 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: , Spontaneous , Other (See Below) 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[employer] History: Irregular [place] Musculoskeletal History: Reports: Back Pain, Chronic, Fracture, Other (See Below ) Other Musculoskeletal History: colar bone, carpal tunnel Neurological History: Reports: Brain Injury, CVA, Head Trauma, Seizure, Other ( See Below) Other Neuro History: TBI ICH Skull defect Psychiatric History: Reports: Anxiety, Depression, Psych Hospitalization(s), Suicide Attempt Hematologic History: Reports: Blood Transfusion(s), Iron Deficiency, Other (See Below) Other Hematologic History: Hypokelemia, hypomagnesemia, hyponatremia Oncologic (Cancer) History: Reports: Cervix - Infectious Disease History Infectious Disease History: Reports: Chicken Pox - Past Surgical History Head Surgeries/Procedures: Reports: None HEENT Surgical History: Reports: Adenoidectomy, Tonsillectomy Cardiovascular Surgical History: Reports: Coronary Artery Bypass Respiratory Surgical History: Reports: None GI Surgical History: Reports: Cholecystectomy Female Surgical History: Reports: Other (See Below) Other Female Surgeries/Procedures: removal of abscess from left breast Neurological Surgical History: Reports: None Musculoskeletal Surgical History: Reports: None Oncologic Surgical History: Reports: None Dermatological Surgical History: Reports: None Social & Family History - Family History Family Medical History: Noncontributory - Tobacco Use Smoking Status *Q: Current Every Day Smoker Years of Tobacco use: 35 Packs/Tins Daily: 0.2 Used Tobacco, but Quit: No Second Hand Smoke Exposure: Yes - Caffeine Use Caffeine Use: Reports: Coffee, Soda - Recreational Drug Use Recreational Drug Use: No - Living Situation & Occupation Living situation: Reports: Single Occupation: Disabled (lives in Apartment, Sister and Uncle live in same building.) ED ROS GENERAL - Review of Systems Review Of Systems: See Below Constitutional: Reports: Weakness, Decreased Appetite HEENT: Reports: No Symptoms Respiratory: Reports: No Symptoms Cardiovascular: Reports: No Symptoms Endocrine: Reports: No Symptoms, Other (pt does feel that she is more thirsty. ) GI/Abdominal: Reports: Abdominal Pain, Other (pt has suprapupic pain and pain in the left lower abdoman. ) Musculoskeletal: Reports: No Symptoms Skin: Reports: No Symptoms ED EXAM, RENAL/ - Physical Exam Exam: See Below Text/Narrative:: pt ishaving supra pupic and left lower abdomanal pain for the past 2-3 days. She has known end stasge liver disease. Exam Limited By: No Limitations General Appearance: Alert, Moderate Distress Ears: Normal TMs Nose: Normal Inspection Throat/Mouth: Normal Inspection Head: Atraumatic Neck: Carotid Bruit Respiratory/Chest: No Respiratory Distress Cardiovascular: Regular Rate, Rhythm GI/Abdominal: Tender, Other (pt has supra pupic and left lower abdomanal tenderness. ) (Female) Exam: Deferred Rectal (Female) Exam: Deferred Back Exam: Normal Inspection Extremities: Normal Inspection, Other (pt has very little edema. ) Neurological: Alert, Oriented, Normal Cognition Course - Vital Signs Last Recorded V/S: Last Vital Signs Temp 36.7 C 09/29/19 16:28 Pulse 62 09/29/19 16:28 Resp 18 09/29/19 16:28 BP 137/68 09/29/19 16:28 Pulse Ox 98 09/29/19 16:28 - Orders/Labs/Meds Orders: Active Orders 24 hr Category Date Time Status CULTURE URINE [] Stat Lab 09/29/19 17:10 Received Clostridium [CLOS DIFFICILE PCR W/REFLEX] [] Stat Lab 09/29/19 17:10 Ordered Iopamidol [Isovue-300 (61%)] Med 09/29/19 18:15 Active 100 ml IV . DIRECTED Sodium Chloride 0.9% [Normal Saline] 1,000 ml Med 09/29/19 17:15 Active IV ASDIRECTED Sodium Chloride 0.9% [Normal Saline] 75 ml Med 09/29/19 18:15 Active IV ASDIRECTED Medication Orders Sodium Chloride (Normal Saline) 1,000 mls @ 150 mls/hr IV ASDIRECTED JOSE Last Admin: 09/29/19 17:39 Dose: 150 mls/hr Sodium Chloride (Normal Saline) 75 mls @ 3 mls/sec IV ASDIRECTED JOSE Iopamidol (Isovue-300 (61%)) 100 ml IV . DIRECTED ON LICENSE OF [facility] Labs: Laboratory Tests 09/29/19 09/29/19 09/29/19 Range/Units 16:56 17:00 17:03 WBC 5.3 (4.5-11.0) K/uL RBC 4.07 (3.30-5.50) M/uL Hgb 13.2 (12.0-15.0) g/dL Hct 38.6 (36.0-48.0) % MCV 95 (80-98) fL MCH 32 H (27-31) pg MCHC 34 (32-36) % Plt Count 112 L (150-400) K/uL Neut % (Auto) 41 (36-66) % Lymph % (Auto) 43 (24-44) % Phelps % (Auto) 10 H (2-6) % Eos % (Auto) 5 H (2-4) % Baso % (Auto) 1 (0-1) % Sodium (140-148) mmol/L Potassium (3.6-5.2) mmol/L Chloride (100-108) mmol/L Carbon Dioxide (21-32) mmol/L Anion Gap (5.0-14.0) mmol/L BUN (7-18) mg/dL Creatinine (0.6-1.0) mg/dL Est Cr Clr Drug Dosing mL/min Estimated GFR (MDRD) (>60) Glucose (74-106) mg/dL Calcium (8.5-10.1) mg/dL Total Bilirubin (0.2-1.0) mg/dL AST (15-37) U/L ALT (12-78) U/L Alkaline Phosphatase (46-116) U/L C-Reactive Protein 0.13 (0.0-0.3) mg/dL Total Protein (6.4-8.2) g/dL Albumin (3.4-5.0) g/dL Globulin (2.3-3.5) g/dL Albumin/Globulin Ratio (1.2-2.2) Amylase (25-115) U/L Lipase (73-393) U/L Urine Color Yellow (YELLOW) Urine Appearance Slightly cloudy A (CLEAR) Urine pH 6.0 (5.0-8.0) Ur Specific [place] 1.020 (1.008-1.030) Urine Protein Negative (NEGATIVE) mg/dL Urine Glucose (UA) Negative (NEGATIVE) mg/dL Urine Ketones Negative (NEGATIVE) mg/dL Urine Occult Blood Small H (NEGATIVE) Urine Nitrite Negative (NEGATIVE) Urine Bilirubin Negative (NEGATIVE) Urine Urobilinogen 0.2 (0.2-1.0) EU/dL Ur Leukocyte Esterase Negative (NEGATIVE) Urine RBC 0-5 (0-5) Urine WBC 5-10 H (0-5) Ur Epithelial Cells Few Amorphous Sediment Not seen Urine Bacteria Moderate Urine Mucus Not seen 09/29/19 09/29/19 Range/Units 17:03 17:03 WBC (4.5-11.0) K/uL RBC (3.30-5.50) M/uL Hgb (12.0-15.0) g/dL Hct (36.0-48.0) % MCV (80-98) fL MCH (27-31) pg MCHC (32-36) % Plt Count (150-400) K/uL Neut % (Auto) (36-66) % Lymph % (Auto) (24-44) % Phelps % (Auto) (2-6) % Eos % (Auto) (2-4) % Baso % (Auto) (0-1) % Sodium 144 (140-148) mmol/L Potassium 2.9 L* (3.6-5.2) mmol/L Chloride 106 (100-108) mmol/L Carbon Dioxide 29 (21-32) mmol/L Anion Gap 11.9 (5.0-14.0) mmol/L BUN 17 D (7-18) mg/dL Creatinine 0.9 (0.6-1.0) mg/dL Est Cr Clr Drug Dosing 61.77 mL/min Estimated GFR (MDRD) > 60 (>60) Glucose 138 H (74-106) mg/dL Calcium 8.7 (8.5-10.1) mg/dL Total Bilirubin 0.8 D (0.2-1.0) mg/dL AST 28 (15-37) U/L ALT 27 (12-78) U/L Alkaline Phosphatase 123 H (46-116) U/L C-Reactive Protein (0.0-0.3) mg/dL Total Protein 6.7 (6.4-8.2) g/dL Albumin 3.2 L (3.4-5.0) g/dL Globulin 3.5 (2.3-3.5) g/dL Albumin/Globulin Ratio 0.9 L (1.2-2.2) Amylase 75 (25-115) U/L Lipase 63 L (73-393) U/L Urine Color (YELLOW) Urine Appearance (CLEAR) Urine pH (5.0-8.0) Ur Specific [place] (1.008-1.030) Urine Protein (NEGATIVE) mg/dL Urine Glucose (UA) (NEGATIVE) mg/dL Urine Ketones (NEGATIVE) mg/dL Urine Occult Blood (NEGATIVE) Urine Nitrite (NEGATIVE) Urine Bilirubin (NEGATIVE) Urine Urobilinogen (0.2-1.0) EU/dL Ur Leukocyte Esterase (NEGATIVE) Urine RBC (0-5) Urine WBC (0-5) Ur Epithelial Cells Amorphous Sediment Urine Bacteria Urine Mucus Meds: Medications Generic Name Dose Route Start Last Admin Trade Name Freq PRN Reason Stop Dose Admin Sodium Chloride 1,000 mls @ 150 mls/hr 09/29/19 17:15 09/29/19 17:39 Normal Saline IV 150 mls/hr ASDIRECTED JOSE Administration Sodium Chloride 75 mls @ 3 mls/sec 09/29/19 18:15 Normal Saline IV ASDIRECTED JOSE Iopamidol 100 ml 09/29/19 18:15 Isovue-300 (61%) IV . DIRECTED JOSE Discontinued Medications Generic Name Dose Route Start Last Admin Trade Name Freq PRN Reason Stop Dose Admin Hydromorphone HCl 0.5 mg 09/29/19 17:13 09/29/19 17:41 Dilaudid IVPUSH 09/29/19 17:14 0.5 mg ONETIME ONE Administration Hydromorphone HCl 0.5 mg 09/29/19 20:39 09/29/19 20:46 Dilaudid IVPUSH 09/29/19 20:40 0.5 mg ONETIME ONE Administration Potassium Chloride 20 meq/ 100 mls @ 50 mls/hr 09/29/19 17:54 09/29/19 18:01 Premix IV 09/29/19 19:53 50 mls/hr ONETIME ONE Administration Ondansetron HCl 4 mg 09/29/19 17:12 09/29/19 17:40 Zofran IVPUSH 09/29/19 17:13 4 mg ONETIME ONE Administration Sodium Chloride 10 ml 09/29/19 18:03 09/29/19 20:25 Saline Flush FLUSH 09/29/19 18:04 Not Given ONETIME ONE - Re-Assessments/Exams Free Text/Narrative Re-Assessment/Exam: 09/29/19 17:56 pt has a normal wbc. Her creatnine is good. will get a cat scan of the abdoman. her urine does not look real positive. will obtain a cat scan of the abdoman. 09/29/19 17:58 Departure - Departure Disposition: Home, Self-Care 01 Clinical Impression: Abdominal pain - Discharge Information Referrals: Zelda Rodriguez DO [Primary Care Provider] - Forms: ED Department Discharge Additional Instructions: Rest and stay well-hydrated Follow-up with your primary doctor tomorrow Come back for any concern or any worsening symptom Recheck potassium in 2 or 3 days. Sepsis Event Note - Evaluation Sepsis Screening Result: No Definite Risk - Focused Exam Vital Signs: Vital Signs Temp Pulse Resp BP Pulse Ox 09/29/19 16:28 36.7 C 62 18 137/68 98 09/29/19 16:23 36.7 C 62 18 137/68 98 Date Exam was Performed: 09/29/19 Time Exam was Performed: 17:56 <Reba Floyd - Last Filed: 09/29/19 21:26> Course - Re-Assessments/Exams Free Text/Narrative Re-Assessment/Exam: Resumed patient care from Dr. Godinez at time of shift exchange pending CT result. CT abdomen and pelvis did not show any acute abnormalities. Patient still complaining of pain. Was given another 0.5 mg of IV Dilaudid. Potassium 2.9. Was given 20 mEq IV potassium. Case was discussed with Dr. Rodriguez hospitalist partition assembler and she is a patient primary care provider. She evaluated the patient's. she recommended discharging her as the Patient wanted to be discharged home does not want to be admitted. Dr. Rodriguez will arrange for a follow-up possibly tomorrow, she will also send a prescription for potassium chloride. She will order pelvic ultrasound as well. And further workup. Stated she will contact her tomorrow to recheck on her. Unclear etiology of her symptom of this point. Advised to continue her antibiotic. patient symptoms improved. Stable for discharge. Advised to rest, hydration, close follow-up with PCP tomorrow. Come back for any concern or any worsening symptom. Patient agrees with the plan. Stable for discharge. 09/29/19 21:20 Departure - Departure Time of Disposition: 21:24 Condition: Fair - Discharge Information *PRESCRIPTION DRUG MONITORING PROGRAM REVIEWED*: Not Applicable *COPY OF PRESCRIPTION DRUG MONITORING REPORT IN PATIENT NOMAN: Not Applicable Sepsis Event Note - Focused Exam Date Exam was Performed: 09/29/19 Time Exam was Performed: 21:18 - Assessment/Plan Plan: Rest and stay well-hydrated Follow-up with your primary doctor tomorrow Come back for any concern or any worsening symptom Recheck potassium in 2 or 3 days.
[2019-09-29] MEDS ORDERED: Potassium Chloride 20 MEQ in Premix Bag 1 BAG IV ONE (17:54)
[2019-09-29] MEDS ORDERED: Sodium Chloride 0.9% 10 ML Syringe FLUSH ONE (18:03)
[2019-09-29] MEDS ORDERED: Iopamidol 612 MG/ML 100 ML Bottle IV SCH (18:15)
[2019-09-29] MEDS ORDERED: Sodium Chloride 0.9% 75 ML IV SCH (18:15)
--- NOTE | 2019-09-29 19:06 | CRLCT ---
INDICATION: Left lower quadrant and suprapubic pain TECHNIQUE: CT abdomen and pelvis acquired with 100 cc Isovue-300 IV contrast. COMPARISON: July 29, 2017 FINDINGS: Lower chest: Status post median sternotomy. Liver: A TIPS appears patent. Spleen: Unremarkable. Pancreas: Unremarkable. Gallbladder and bile ducts: S/p cholecystectomy. Common bile duct measures 1.5 cm in diameter, likely due to reservoir effect. Adrenal glands: Unremarkable. Kidneys: 2 mm nonobstructive left renal stone. Scarring in the left kidney. GI tract: Large amount of feces in the colon. Appendix is not seen. Vascular structures: Unremarkable. Lymph nodes: Unremarkable. Miscellaneous: Unremarkable. No free air or significant free fluid. Pelvic Organs: Unremarkable. Bones: Unremarkable for age. IMPRESSION: No acute intra-abdominal inflammatory process. Large amount of feces in the colon. Correlate with symptoms of constipation. Patent TIPS. Nonobstructive left nephrolithiasis. Status post cholecystectomy and median sternotomy. Please note that all CT scans at this facility use dose modulation, iterative reconstruction, and/or weight-based dosing when appropriate to reduce radiation dose to as low as reasonably achievable. Dictated by Kanwal Higginbotham MD @ Sep 29 2019 6:58PM Signed by Dr. Kanwal Higginbotham @ Sep 29 2019 7:04PM
== END 2019-09-29 22:02 | disposition home or self-care (01) ==
LOC: JP.ED 16:03
DX: R10.32 Left lower quadrant pain (principal); I25.10 Atherosclerotic heart disease of native coronary artery without angina pectoris; I25.2 Old myocardial infarction; J45.909 Unspecified asthma, uncomplicated; F17.210 Nicotine dependence, cigarettes, uncomplicated; Z86.73 Personal history of transient ischemic attack (TIA), and cerebral infarction without residual deficits; Z91.013 Allergy to seafood; Z88.8 Allergy status to other drugs, medicaments and biological substances; Z79.899 Other long term (current) drug therapy; Z95.1 Presence of aortocoronary bypass graft
CPT/HCPCS: 36415; 74177; 80053; 81001; 82150; 83690; 85025; 86140; 87086; 96365; 96366; 96375; 96376; 99284; J1170; J2405; J3480; J7030

== ENCOUNTER 2019-10-06 12:52 | Emergency (ER) | payer MEDICAID ==
--- NOTE | 2019-10-06 15:30 | EDM.PDOC ---
ED HPI GENERAL MEDICAL PROBLEM - General Chief Complaint: General Stated Complaint: BURNING IN RIGHT HAND, ADB LEFT SIDE Time Seen by Provider: 10/06/19 15:10 Source of Information: Reports: Patient History Limitations: Reports: No Limitations - History of Present Illness INITIAL COMMENTS - FREE TEXT/NARRATIVE: 44-year-old female with chronic right wrist pain, has an increased pain over the past couple of days. Severe throbbing pain that is relieved mildly with warm water. She was given 40 oxycodone for a 10-day supply 11 days ago, called her doctor who she has a pain contract with and she is "out sick". An EMG is scheduled for the , she is tearful and wants it done sooner so she can get this taken care of. Onset: Unknown/Unsure Duration: Chronic Location: Reports: Upper Extremity, Right hand Pain Score (Numeric/FACES): 8 - Related Data Allergies Allergy/AdvReac Type Severity Reaction Status Date / Time Fish Containing Products Allergy Severe Airway Verified 10/06/19 14:20 Tightness ziprasidone [From Geodon] Allergy Severe Airway Verified 10/06/19 14:20 Tightness tree nut Allergy Hives Verified 10/06/19 14:20 lamotrigine [From Lamictal] AdvReac Leg Cramps Verified 10/06/19 14:20 msg Allergy Hives Uncoded 10/06/19 14:20 Home Meds: Home Meds Cyanocobalamin (Vitamin B-12) [B-12] 250 mcg PO DAILY 07/29/17 [History] Gabapentin [Neurontin] 200 mg PO BID 07/29/17 [History] Lactulose 30 ml PO TID 07/29/17 [History] levETIRAcetam [Keppra] 500 mg PO BID 07/29/17 [History] Omeprazole 20 mg PO BID 10/19/17 [History] Cholecalciferol (Vitamin D3) [Vitamin D3] 1 tab PO DAILY 09/16/19 [History] Folic Acid 1 mg PO DAILY 09/16/19 [History] Magnesium 400 mg PO DAILY 09/16/19 [History] Albuterol Sulfate [Proventil Hfa] 6.7 gm IH Q4H 09/29/19 [History] Albuterol [Proventil Neb Soln] 2.5 mg INH Q4H PRN 09/29/19 [History] Calcium Carbonate [Tums] 500 mg PO QID PRN 09/29/19 [History] Docusate Sodium 200 mg PO BID PRN 09/29/19 [History] Ferrous Gluconate 324 mg PO DAILY 09/29/19 [History] Furosemide 40 mg PO DAILY 09/29/19 [History] Lidocaine/Kinesiology Tape [Lidopure Patch 5% Combo Pack] 1 each TP DAILY [History] Methyl Salicylate/Menthol [Salonpas Patch] 1 each TP Q24H 09/29/19 [History] Multivit with Minerals No.55 [Centrum Flavor Burst Adult] 1 tab PO DAILY [History] Nitrofurantoin Monohyd/M-Cryst [Macrobid 100 mg Capsule] 1 tab PO BID 09/29/19 [ History] Nitroglycerin [Nitrostat] 0.4 mg SL ASDIRECTED PRN 09/29/19 [History] Ondansetron [Zofran ODT] 1 tab PO Q8H PRN 09/29/19 [History] Rifaximin [Xifaxan] 550 mg PO BID 09/29/19 [History] Spironolactone [Aldactone] 100 mg PO DAILY 09/29/19 [History] Thiamine [Vitamin B-1] 1 tab PO DAILY 09/29/19 [History] hydrOXYzine HCL [Hydroxyzine HCl] 100 mg PO QID PRN 09/29/19 [History] oxyCODONE 5 mg PO Q6H PRN 09/29/19 [History] Past Medical History HEENT History: Reports: Hard of Hearing, Impaired Vision Cardiovascular History: Reports: CAD, [place], Other (See Below) Other Cardiovascular History: portal hypertension Respiratory History: Reports: Asthma Gastrointestinal History: Reports: Cirrhosis, Other (See Below) Other Gastrointestinal History: ascites, liver disease, cholecystitis, hepatic encephalopathy, stent placed in liver Genitourinary History: Reports: Renal Calculus, Other (See Below) Other Genitourinary History: urethral stent placed that extends to kidney 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: , Spontaneous , Other (See Below) Other SOLE STITCHER HAND History: Irregular [place] oca Musculoskeletal History: Reports: Back Pain, Chronic, Fracture, Other (See Below ) Other Musculoskeletal History: colar bone, carpal tunnel Neurological History: Reports: Brain Injury, CVA, Head Trauma, Seizure, Other ( See Below) Other Neuro History: TBI ICH Skull defect Psychiatric History: Reports: Anxiety, Depression, Psych Hospitalization(s), Suicide Attempt Hematologic History: Reports: Blood Transfusion(s), Iron Deficiency, Other (See Below) Other Hematologic History: Hypokelemia, hypomagnesemia, hyponatremia Oncologic (Cancer) History: Reports: Cervix - Infectious Disease History Infectious Disease History: Reports: Chicken Pox - Past Surgical History Head Surgeries/Procedures: Reports: None HEENT Surgical History: Reports: Adenoidectomy, Tonsillectomy Cardiovascular Surgical History: Reports: Coronary Artery Bypass Respiratory Surgical History: Reports: None GI Surgical History: Reports: Cholecystectomy Female Surgical History: Reports: Other (See Below) Other Female Surgeries/Procedures: removal of abscess from left breast Neurological Surgical History: Reports: None Musculoskeletal Surgical History: Reports: None Oncologic Surgical History: Reports: None Dermatological Surgical History: Reports: None Social & Family History - Family History Family Medical History: Noncontributory - Tobacco Use Smoking Status *Q: Current Every Day Smoker Years of Tobacco use: 38 Packs/Tins Daily: 0.2 Used Tobacco, but Quit: No Second Hand Smoke Exposure: Yes - Caffeine Use Caffeine Use: Reports: Coffee - Recreational Drug Use Recreational Drug Use: No - Living Situation & Occupation Living situation: Reports: Single Occupation: Disabled (lives in Apartment, Sister and Uncle live in same building.) ED ROS GENERAL - Review of Systems Review Of Systems: See Below Constitutional: Denies: Fever, Chills HEENT: Denies: Dental Pain Respiratory: Denies: Shortness of Breath Cardiovascular: Denies: Chest Pain GI/Abdominal: Reports: Abdominal Pain Skin: Denies: Bruising Neurological: Reports: Confusion Psychiatric: Reports: Anxiety ED EXAM, GENERAL - Physical Exam Exam: See Below Exam Limited By: No Limitations General Appearance: Alert, Anxious, Other (Patient is in no distress but looks very uncomfortable, somewhat tearful) Eye Exam: Bilateral Eye: EOMI Head: Other (Asymmetric cranium due to past surgery for stroke) Neck: Supple Respiratory/Chest: No Respiratory Distress, Lungs Clear Extremities: Other (Exam of the right upper extremity reveals tenderness and increased pain with percussion over the median nerve, and mapping out her painful area of her hand correlates with the median nerve as the lateral ring finger and small finger are less involved.) Course - Vital Signs Last Recorded V/S: Last Vital Signs Temp 97.8 F 10/06/19 14:36 Pulse 73 10/06/19 14:36 Resp 18 10/06/19 14:36 BP 130/75 10/06/19 14:36 Pulse Ox 96 10/06/19 14:36 - Re-Assessments/Exams Free Text/Narrative Re-Assessment/Exam: 10/07/19 11:44 This patient does have significant 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 Because her primary provider is unavailable today, she was provided with 12 oxycodone to take 1 every 4 hours for pain control until she can really establish with Dr. Rodriguez. I did encourage her to wear her splint at all times if possible. Departure - Departure Time of Disposition: 15:36 Disposition: Home, Self-Care 01 Clinical Impression: Carpal tunnel syndrome of right wrist - Discharge Information Instructions: Carpal Tunnel Syndrome, [id number] Referrals: Zelda Rodriguez DO [Primary Care Provider] - Forms: ED Department Discharge Care Plan Goals: It would be very helpful to wear the splint as much as possible, especially at night. Take oxycodone as prescribed and call your primary provider in the next 1 to 2 days for additional pain medication if needed. Sepsis Event Note - Evaluation Sepsis Screening Result: No Definite Risk - Focused Exam Date Exam was Performed: 10/07/19 Time Exam was Performed: 11:42
== END 2019-10-06 15:36 | disposition home or self-care (01) ==
LOC: JP.ED 12:52
DX: G56.01 Carpal tunnel syndrome, right upper limb (principal); I25.10 Atherosclerotic heart disease of native coronary artery without angina pectoris; I25.2 Old myocardial infarction; J45.909 Unspecified asthma, uncomplicated; Z86.73 Personal history of transient ischemic attack (TIA), and cerebral infarction without residual deficits; F41.9 Anxiety disorder, unspecified; F32.9 Major depressive disorder, single episode, unspecified; F17.210 Nicotine dependence, cigarettes, uncomplicated; Z79.899 Other long term (current) drug therapy; Z91.013 Allergy to seafood; Z88.8 Allergy status to other drugs, medicaments and biological substances; Z91.048 Other nonmedicinal substance allergy status
CPT/HCPCS: 99283

== ENCOUNTER 2019-11-09 18:13 | Emergency (ER) | payer MEDICAID ==
--- NOTE | 2019-11-09 19:22 | EDM.PDOC ---
ED HPI GENERAL MEDICAL PROBLEM - General Chief Complaint: Upper Extremity Injury/Pain Stated Complaint: RIGHT HAND PAIN POST SURGERY 11/08 Time Seen by Provider: 11/09/19 19:09 Source of Information: Reports: Patient, RN Notes Reviewed History Limitations: Reports: No Limitations - History of Present Illness INITIAL COMMENTS - FREE TEXT/NARRATIVE: 44-year-old female presents emergency department a complaint of postoperative pain she had carpal tunnel done 3 days prior right wrist she is complaining of pain over the suture area numbness digits 1 3 and 5 no numbness and tingling in digits 2 or 4 right wrist Pain Score (Numeric/FACES): 9 - Related Data Allergies Allergy/AdvReac Type Severity Reaction Status Date / Time Fish Containing Products Allergy Severe Airway Verified 11/09/19 18:46 Tightness ziprasidone [From Geodon] Allergy Severe Airway Verified 11/09/19 18:46 Tightness tree nut Allergy Hives Verified 11/09/19 18:46 lamotrigine [From Lamictal] AdvReac Leg Cramps Verified 11/09/19 18:46 msg Allergy Hives Uncoded 11/09/19 18:46 Home Meds: Home Meds Cyanocobalamin (Vitamin B-12) [B-12] 250 mcg PO DAILY 07/29/17 [History] Gabapentin [Neurontin] 200 mg PO BID 07/29/17 [History] Lactulose 30 ml PO TID 07/29/17 [History] levETIRAcetam [Keppra] 500 mg PO BID 07/29/17 [History] Omeprazole 20 mg PO BID 10/19/17 [History] Cholecalciferol (Vitamin D3) [Vitamin D3] 1 tab PO DAILY 09/16/19 [History] Folic Acid 1 mg PO DAILY 09/16/19 [History] Magnesium 400 mg PO DAILY 09/16/19 [History] Albuterol Sulfate [Proventil Hfa] 6.7 gm IH Q4H 09/29/19 [History] Albuterol [Proventil Neb Soln] 2.5 mg INH Q4H PRN 09/29/19 [History] Ferrous Gluconate 324 mg PO DAILY 09/29/19 [History] Furosemide 40 mg PO DAILY 09/29/19 [History] Lidocaine/Kinesiology Tape [Lidopure Patch 5% Combo Pack] 1 each TP DAILY [History] Methyl Salicylate/Menthol [Salonpas Patch] 1 each TP Q24H 09/29/19 [History] Multivit with Minerals No.55 [Centrum Flavor Burst Adult] 1 tab PO DAILY [History] Nitroglycerin [Nitrostat] 0.4 mg SL ASDIRECTED PRN 09/29/19 [History] Ondansetron [Zofran ODT] 1 tab PO Q8H PRN 09/29/19 [History] Rifaximin [Xifaxan] 550 mg PO BID 09/29/19 [History] Spironolactone [Aldactone] 100 mg PO DAILY 09/29/19 [History] Thiamine [Vitamin B-1] 1 tab PO DAILY 09/29/19 [History] hydrOXYzine HCL [Hydroxyzine HCl] 100 mg PO QID PRN 09/29/19 [History] oxyCODONE 5 mg PO Q6H PRN 09/29/19 [History] Past Medical History HEENT History: Reports: Hard of Hearing, Impaired Vision Cardiovascular History: Reports: CAD, [place], Other (See Below) Other Cardiovascular History: portal hypertension Respiratory History: Reports: Asthma Gastrointestinal History: Reports: Cirrhosis, Other (See Below) Other Gastrointestinal History: ascites, liver disease, cholecystitis, hepatic encephalopathy, stent placed in liver Genitourinary History: Reports: Renal Calculus, Other (See Below) Other Genitourinary History: urethral stent placed that extends to kidney FISHER History: Reports: , Spontaneous , Other (See Below) Other FISHER History: Irregular [place] Musculoskeletal History: Reports: Back Pain, Chronic, Fracture, Other (See Below ) Other Musculoskeletal History: colar bone, carpal tunnel Neurological History: Reports: Brain Injury, CVA, Head Trauma, Seizure, Other ( See Below) Other Neuro History: TBI ICH Skull defect Psychiatric History: Reports: Anxiety, Depression, Psych Hospitalization(s), Suicide Attempt Hematologic History: Reports: Blood Transfusion(s), Iron Deficiency, Other (See Below) Other Hematologic History: Hypokelemia, hypomagnesemia, hyponatremia Oncologic (Cancer) History: Reports: Cervix - Infectious Disease History Infectious Disease History: Reports: Chicken Pox - Past Surgical History Head Surgeries/Procedures: Reports: None HEENT Surgical History: Reports: Adenoidectomy, Tonsillectomy Cardiovascular Surgical History: Reports: Coronary Artery Bypass Respiratory Surgical History: Reports: None GI Surgical History: Reports: Cholecystectomy Female Surgical History: Reports: Other (See Below) Other Female Surgeries/Procedures: removal of abscess from left breast Neurological Surgical History: Reports: None Musculoskeletal Surgical History: Reports: None, Carpal Tunnel Oncologic Surgical History: Reports: None Dermatological Surgical History: Reports: None Social & Family History - Family History Family Medical History: Noncontributory - Tobacco Use Smoking Status *Q: Current Every Day Smoker Years of Tobacco use: 35 Packs/Tins Daily: 0.2 - Caffeine Use Caffeine Use: Reports: Coffee - Recreational Drug Use Recreational Drug Use: No - Living Situation & Occupation Living situation: Reports: Single Occupation: Disabled (lives in Apartment, Sister and Uncle live in same building.) Review of Systems - Review of Systems Review Of Systems: See Below Constitutional: Reports: No Symptoms Musculoskeletal: Reports: Hand Pain Neurological: Reports: Numbness, Tingling ED EXAM, GENERAL - Physical Exam Exam: See Below Free Text/Narrative:: Examination of the wound it is clean dry and intact appears to be healing well there is a strong radial pulse of +2 good capillary refill in all digits sensation appears to be intact limited range of motion of digits and wrist secondary to pain Exam Limited By: No Limitations General Appearance: Alert, WD/WN, No Apparent Distress Respiratory/Chest: No Respiratory Distress Course - Vital Signs Last Recorded V/S: Last Vital Signs Temp 96.2 F L 11/09/19 18:51 Pulse 88 11/09/19 18:51 Resp 16 11/09/19 18:51 BP 118/80 11/09/19 18:51 Pulse Ox 95 11/09/19 18:51 Departure - Departure Time of Disposition: 19:21 Disposition: Home, Self-Care 01 Condition: Fair Clinical Impression: Postoperative pain - Discharge Information Instructions: Acute Pain, Adult Referrals: Zelda Rodriguez DO [Primary Care Provider] - Additional Instructions: Try the Percocet as needed for pain control please contact your surgeon in the morning for further evaluation Sepsis Event Note - Evaluation Sepsis Screening Result: No Definite Risk - Focused Exam Vital Signs: Vital Signs Temp Pulse Resp BP Pulse Ox 11/09/19 18:51 96.2 F L 88 16 118/80 95 11/09/19 18:33 96.2 F L 88 16 118/80 95 Date Exam was Performed: 11/09/19 Time Exam was Performed: 19:16 - Assessment/Plan Plan: Assessment Acuity = acute Site and laterality = postoperative pain secondary to carpal tunnel on the right Etiology = unknown Manifestations = none Location of injury = Home Lab values = none Plan I did offer to change pain medication she asked for the pain medication that begins with deep I told her I do not have that pain medication and instrument pharmacy therefore she is willing to try Percocet therefore prescription written for Percocet 5/325 1 tab p.o. 3 times daily PRN total #6 have her contact her surgeon in the morning for further evaluation This note was dictated using [employer] voice recognition software please call with any questions on syntax or grammar.
[2019-11-09] MEDS ORDERED: Acetaminophen/oxyCODONE 325-5 MG Tab PO PRN (19:30)
== END 2019-11-09 19:40 | disposition home or self-care (01) ==
LOC: JP.ED 18:13
DX: G89.18 Other acute postprocedural pain (principal); F17.210 Nicotine dependence, cigarettes, uncomplicated; I25.10 Atherosclerotic heart disease of native coronary artery without angina pectoris; I25.2 Old myocardial infarction; Z86.73 Personal history of transient ischemic attack (TIA), and cerebral infarction without residual deficits; Z79.899 Other long term (current) drug therapy; Z91.013 Allergy to seafood; Z88.8 Allergy status to other drugs, medicaments and biological substances; Z91.09 Other allergy status, other than to drugs and biological substances
CPT/HCPCS: 99283; A9270

== ENCOUNTER 2019-11-11 20:52 | Emergency (ER) | payer MEDICAID ==
[2019-11-11] MEDS ORDERED: Sodium Chloride 0.9% 10 ML Syringe FLUSH PRN (22:05)
--- NOTE | 2019-11-11 22:11 | EDM.PDOC ---
ED HPI GENERAL MEDICAL PROBLEM - General Chief Complaint: General Stated Complaint: DIZZY Time Seen by Provider: 11/11/19 21:58 Source of Information: Reports: Patient, RN Notes Reviewed History Limitations: Reports: No Limitations - History of Present Illness INITIAL COMMENTS - FREE TEXT/NARRATIVE: 44-year-old female presents emergency department today complaint of dizziness and difficulty walking she has an extensive past medical history including a subdural hematoma. She states the symptoms she is feeling now feels very similar to her prior episode symptoms, early this morning have progressively gotten worse she has difficulty walking as well as nausea and vomiting. She has no focal neurologic deficit Frontal Headache Pain Score (Numeric/FACES): 9 - Related Data Allergies Allergy/AdvReac Type Severity Reaction Status Date / Time Fish Containing Products Allergy Severe Airway Verified 11/11/19 21:32 Tightness ziprasidone [From Geodon] Allergy Severe Airway Verified 11/11/19 21:32 Tightness tree nut Allergy Hives Verified 11/11/19 21:32 lamotrigine [From Lamictal] AdvReac Leg Cramps Verified 11/11/19 21:32 msg Allergy Hives Uncoded 11/11/19 21:32 Home Meds: Home Meds Cyanocobalamin (Vitamin B-12) [B-12] 250 mcg PO DAILY 07/29/17 [History] Gabapentin [Neurontin] 200 mg PO BID 07/29/17 [History] Lactulose 30 ml PO TID 07/29/17 [History] levETIRAcetam [Keppra] 500 mg PO BID 07/29/17 [History] Omeprazole 20 mg PO BID 10/19/17 [History] Cholecalciferol (Vitamin D3) [Vitamin D3] 1 tab PO DAILY 09/16/19 [History] Folic Acid 1 mg PO DAILY 09/16/19 [History] Magnesium 400 mg PO DAILY 09/16/19 [History] Albuterol Sulfate [Proventil Hfa] 6.7 gm IH Q4H 09/29/19 [History] Albuterol [Proventil Neb Soln] 2.5 mg INH Q4H PRN 09/29/19 [History] Ferrous Gluconate 324 mg PO DAILY 09/29/19 [History] Furosemide 40 mg PO DAILY 09/29/19 [History] Lidocaine/Kinesiology Tape [Lidopure Patch 5% Combo Pack] 1 each TP DAILY [History] Methyl Salicylate/Menthol [Salonpas Patch] 1 each TP Q24H 09/29/19 [History] Multivit with Minerals No.55 [Centrum Flavor Burst Adult] 1 tab PO DAILY [History] Nitroglycerin [Nitrostat] 0.4 mg SL ASDIRECTED PRN 09/29/19 [History] Ondansetron [Zofran ODT] 1 tab PO Q8H PRN 09/29/19 [History] Rifaximin [Xifaxan] 550 mg PO BID 09/29/19 [History] Spironolactone [Aldactone] 100 mg PO DAILY 09/29/19 [History] Thiamine [Vitamin B-1] 1 tab PO DAILY 09/29/19 [History] hydrOXYzine HCL [Hydroxyzine HCl] 100 mg PO QID PRN 09/29/19 [History] oxyCODONE 5 mg PO Q6H PRN 09/29/19 [History] Past Medical History HEENT History: Reports: Hard of Hearing, Impaired Vision Cardiovascular History: Reports: CAD, [place], Other (See Below) Other Cardiovascular History: portal hypertension Respiratory History: Reports: Asthma Gastrointestinal History: Reports: Cirrhosis, Other (See Below) Other Gastrointestinal History: ascites, liver disease, cholecystitis, hepatic encephalopathy, stent placed in liver Genitourinary History: Reports: Renal Calculus, Other (See Below) Other Genitourinary History: urethral stent placed that extends to kidney CYBER ENGINEER History: Reports: , Spontaneous , Other (See Below) Other CYBER ENGINEER History: Irregular [place] Musculoskeletal History: Reports: Back Pain, Chronic, Fracture, Other (See Below ) Other Musculoskeletal History: colar bone, carpal tunnel Neurological History: Reports: Brain Injury, CVA, Head Trauma, Seizure, Other ( See Below) Other Neuro History: TBI ICH Skull defect Psychiatric History: Reports: Anxiety, Depression, Psych Hospitalization(s), Suicide Attempt Hematologic History: Reports: Blood Transfusion(s), Iron Deficiency, Other (See Below) Other Hematologic History: Hypokelemia, hypomagnesemia, hyponatremia Oncologic (Cancer) History: Reports: Cervix - Infectious Disease History Infectious Disease History: Reports: Chicken Pox - Past Surgical History Head Surgeries/Procedures: Reports: None HEENT Surgical History: Reports: Adenoidectomy, Tonsillectomy Cardiovascular Surgical History: Reports: Coronary Artery Bypass Respiratory Surgical History: Reports: None GI Surgical History: Reports: Cholecystectomy Female Surgical History: Reports: Other (See Below) Other Female Surgeries/Procedures: removal of abscess from left breast Neurological Surgical History: Reports: None Musculoskeletal Surgical History: Reports: None, Carpal Tunnel Oncologic Surgical History: Reports: None Dermatological Surgical History: Reports: None Social & Family History - Family History Family Medical History: Noncontributory - Tobacco Use Smoking Status *Q: Current Every Day Smoker Years of Tobacco use: 33 Packs/Tins Daily: 0.2 - Caffeine Use Caffeine Use: Reports: Coffee Caffeine Use Comment: 2 cups of coffee per day; 3 diet pops per day - Recreational Drug Use Recreational Drug Use: No - Living Situation & Occupation Living situation: Reports: Single Occupation: Disabled (lives in Apartment, Sister and Uncle live in same building.) ED ROS GENERAL - Review of Systems Review Of Systems: See Below Constitutional: Reports: No Symptoms HEENT: Reports: Vertigo Respiratory: Reports: No Symptoms Cardiovascular: Reports: No Symptoms GI/Abdominal: Reports: Nausea, Vomiting Musculoskeletal: Reports: No Symptoms Skin: Reports: No Symptoms Neurological: Reports: Dizziness, Headache, Difficulty Walking ED EXAM, GENERAL - Physical Exam Exam: See Below (YZ here) Free Text/Narrative:: General: Female, not in any distress, anxious, alert and oriented x3 HEENT: head is portion of skull is missing normocephalic, eyes pupils equal round reactive to light, sclera clear no conjunctivitis appreciated. Ears tympanic membranes clear and cannon landmarks and light reflex are present bilaterally canals are clear. Nose no septal deviation, nares are clear, no blood present. Mouth mucosa is moist and pink no erythema or exudate noted in soft palate, tongue is midline uvula is midline, dentition is intact. Head impulse test: Negative loss of fixation with corrective saccades when head turned to the bilateral Nystagmus: unidirectional, horizontal to-beating nystagmus Skew deviation: grossly absent Neck: Supple no thyromegaly no tracheal deviation. Nodes: Cervical nodes subclavicular nodes nontender no palpable lymphadenopathy noted. Lungs: clear to auscultation bilaterally with symmetrical respirations, no adventitious noise appreciated. CV: Regular rate and rhythm S1 and S2 appreciated no murmurs rubs or gallops noted. Abdomen: Soft, nontender, no palpable masses or organomegaly appreciated, no distention no guarding bowel sounds are present, [scars ]. Neuro: Cranial nerves II test with pupillary light reflex 4 mm to 2 mm bilaterally, CN III test pupillary constriction, lid elevation and eye abduction bilaterally, CN IV downward movement of eyes bilaterally, CN V good jaw movement, CN lateral deviation of the eyes bilaterally to finger movement , CN VII symmetrical smile shows teeth without difficulty, CN VIII pass finger rub to ears bilaterally, CN IX adequate voice and tone, CN X adequate voice and tone no difficulty swallowing, CN XI can shrug shoulders without difficulty, CN XII can stick tongue out without difficulty, cranial nerves II to XII intact as tested, power is 5 x 5 upper and lower extremities has difficulty with ambulation Skin: Warm and dry, intact Extremities: No lower extremity edema appreciated, Course - Vital Signs Last Recorded V/S: Last Vital Signs Temp 97.8 F 11/11/19 21:33 Pulse 72 11/11/19 21:33 Resp 16 11/11/19 21:33 BP 126/73 11/11/19 21:33 Pulse Ox 98 11/11/19 21:33 - Orders/Labs/Meds Orders: Active Orders 24 hr Category Date Time Status Peripheral IV Care [RC] . DIRECTED Care 11/11/19 22:05 Active Sodium Chloride 0.9% [Saline Flush] Med 11/11/19 22:05 Active 10 ml FLUSH ASDIRECTED PRN Peripheral IV Insertion Adult [OM.PC] Urgent Oth 11/11/19 22:05 Ordered Medication Orders Sodium Chloride (Saline Flush) 10 ml FLUSH ASDIRECTED PRN PRN Reason: Keep Vein Open Last Admin: 11/11/19 22:34 Dose: 10 ml Labs: Laboratory Tests 11/11/19 11/11/19 Range/Units 22:10 22:10 WBC 8.1 (4.5-11.0) K/uL RBC 4.34 (3.30-5.50) M/uL Hgb 13.7 (12.0-15.0) g/dL Hct 40.6 (36.0-48.0) % MCV 94 (80-98) fL MCH 32 H (27-31) pg MCHC 34 (32-36) % Plt Count 123 L (150-400) K/uL Neut % (Auto) 38 (36-66) % Lymph % (Auto) 51 H (24-44) % [place] % (Auto) 9 H (2-6) % Eos % (Auto) 3 (2-4) % Baso % (Auto) 0 (0-1) % Sodium 142 (140-148) mmol/L Potassium 3.9 (3.6-5.2) mmol/L Chloride 108 (100-108) mmol/L Carbon Dioxide 23 (21-32) mmol/L Anion Gap 11.2 (5.0-14.0) mmol/L BUN 16 (7-18) mg/dL Creatinine 1.2 H (0.6-1.0) mg/dL Est Cr Clr Drug Dosing 48.46 mL/min Estimated GFR (MDRD) 48 L (>60) Glucose 96 (74-106) mg/dL Calcium 9.2 (8.5-10.1) mg/dL Meds: Medications Generic Name Dose Route Start Last Admin Trade Name Freq PRN Reason Stop Dose Admin Sodium Chloride 10 ml 11/11/19 22:05 11/11/19 22:34 Saline Flush FLUSH 10 ml ASDIRECTED PRN Administration Keep Vein Open Discontinued Medications Generic Name Dose Route Start Last Admin Trade Name Freq PRN Reason Stop Dose Admin Meclizine HCl 12.5 mg 11/11/19 23:15 11/11/19 23:19 Antivert PO 11/11/19 23:16 12.5 mg ONETIME ONE Administration Ondansetron HCl 4 mg 11/11/19 22:07 11/11/19 22:34 Zofran IVPUSH 11/11/19 22:08 4 mg ONETIME ONE Administration Departure - Departure Time of Disposition: 23:47 Disposition: Home, Self-Care 01 Condition: Poor Clinical Impression: Dizziness - Discharge Information Instructions: Dizziness, [id number] Referrals: Zelda Rodriguez DO [Primary Care Provider] - Forms: ED Department Discharge Additional Instructions: Try meclizine as needed for dizzy symptoms, please followup with your primary care provider in 3 to 5 days days if not better, please call return to the emergency department with worsening of symptoms. Sepsis Event Note - Evaluation Sepsis Screening Result: No Definite Risk - Focused Exam Vital Signs: Vital Signs Temp Pulse Resp BP Pulse Ox 11/11/19 21:33 97.8 F 72 16 126/73 98 11/11/19 21:27 97.8 F 72 16 126/73 98 Date Exam was Performed: 11/11/19 Time Exam was Performed: 23:46 - My Orders Last 24 Hours: My Active Orders 11/11/19 22:05 Peripheral IV Care [RC] . DIRECTED Sodium Chloride 0.9% [Saline Flush] 10 ml FLUSH ASDIRECTED PRN Peripheral IV Insertion Adult [OM.PC] Urgent - Assessment/Plan Last 24 Hours: My Active Orders 11/11/19 22:05 Peripheral IV Care [RC] . DIRECTED Sodium Chloride 0.9% [Saline Flush] 10 ml FLUSH ASDIRECTED PRN Peripheral IV Insertion Adult [OM.PC] Urgent Plan: Assessment Acuity = acute Site and laterality = dizzy Etiology = unknown Manifestations = none Location of injury = Home Lab values = CBC unremarkable creatinine elevated 1.2 consistent with chronic renal failure stage G3 a CT scan of the head was negative Plan She had good improvement with meclizine provided in the ED was able to ambulate without difficulty discharged home with meclizine 25 mg 1 tab p.o. 3 times daily as needed total #100 follow-up primary care 3 to 5 days if not better This note was dictated using [employer] voice recognition software please call with any questions on syntax or grammar.
[2019-11-11] MEDS: Ondansetron 4 MG/2 ML SDV IVPUSH ONE (22:34)
--- NOTE | 2019-11-11 23:12 | CRLCT ---
INDICATION: Dizziness and loss of balance TECHNIQUE: CT head without contrast. COMPARISON: 09/15 09/25 FINDINGS: CSF spaces: Within normal limits for age. Brain parenchyma: The cannon-white differentiation is normal. No sign of mass, hemorrhage, or midline shift. Changes of encephalomalacia right posterior occipital lobe. Skull base and calvarium: The visualized paranasal sinuses and mastoid air cells demonstrate no acute or significant findings. The visualized orbits are grossly unremarkable. No skull fractures. Stable large right craniectomy defect. IMPRESSION: No acute intracranial abnormalities. Stable large right craniectomy with stable changes of encephalomalacia right posterior occipital lobe. Dictated by Shady Mendoza MD @ 11/11/2019 11:10:11 PM Please note that all CT scans at this facility use dose modulation, iterative reconstruction, and/or weight-based dosing when appropriate to reduce radiation dose to as low as reasonably achievable. Dictated by: Shady Mendoza MD @ 11/11/2019 23:10:15 (Electronically Signed)
[2019-11-11] MEDS ORDERED: Meclizine 25 MG Tab PO ONE (23:15)
== END 2019-11-11 23:55 | disposition home or self-care (01) ==
LOC: JP.ED 20:52
DX: R42 Dizziness and giddiness (principal); F17.210 Nicotine dependence, cigarettes, uncomplicated; I25.10 Atherosclerotic heart disease of native coronary artery without angina pectoris; I25.2 Old myocardial infarction; J45.909 Unspecified asthma, uncomplicated; F41.9 Anxiety disorder, unspecified; F32.9 Major depressive disorder, single episode, unspecified; Z79.899 Other long term (current) drug therapy; Z91.013 Allergy to seafood; Z91.09 Other allergy status, other than to drugs and biological substances
CPT/HCPCS: 36415; 70450; 80048; 85025; 96374; 99284; A9270; J2405

== ENCOUNTER 2019-11-28 22:16 | Emergency (ER) | payer MEDICAID ==
--- NOTE | 2019-11-28 22:58 | EDM.PDOC ---
ED HPI GENERAL MEDICAL PROBLEM - General Chief Complaint: General Stated Complaint: VERTIGO Time Seen by Provider: 11/28/19 22:30 Source of Information: Reports: Patient History Limitations: Reports: No Limitations - History of Present Illness INITIAL COMMENTS - FREE TEXT/NARRATIVE: 44-year-old female with persistent dizzy spells and vertigo, was seen in the emergency room a couple weeks ago and had a thorough work-up including CT scan which was negative. She was told to follow-up with her primary care to consider physical therapy but she has not done that. She has been using meclizine on a regular basis and it is not working so she came in [facility]. No fevers or chills, no head trauma, no shortness of breath or palpitations. Onset: Gradual (Symptoms are chronic, been ongoing for weeks) Associated Symptoms: Denies: Nausea/Vomiting Head Pain Score (Numeric/FACES): 8 - Related Data Allergies Allergy/AdvReac Type Severity Reaction Status Date / Time Fish Containing Products Allergy Severe Airway Verified 11/28/19 22:30 Tightness ziprasidone [From Geodon] Allergy Severe Airway Verified 11/28/19 22:30 Tightness tree nut Allergy Hives Verified 11/28/19 22:30 lamotrigine [From Lamictal] AdvReac Leg Cramps Verified 11/28/19 22:30 msg Allergy Hives Uncoded 11/28/19 22:30 Home Meds: Home Meds Cyanocobalamin (Vitamin B-12) [B-12] 250 mcg PO DAILY 07/29/17 [History] Gabapentin [Neurontin] 200 mg PO BID 07/29/17 [History] Lactulose 30 ml PO TID 07/29/17 [History] levETIRAcetam [Keppra] 500 mg PO BID 07/29/17 [History] Omeprazole 20 mg PO BID 10/19/17 [History] Cholecalciferol (Vitamin D3) [Vitamin D3] 1 tab PO DAILY 09/16/19 [History] Folic Acid 1 mg PO DAILY 09/16/19 [History] Magnesium 400 mg PO DAILY 09/16/19 [History] Albuterol Sulfate [Proventil Hfa] 6.7 gm IH Q4H 09/29/19 [History] Albuterol [Proventil Neb Soln] 2.5 mg INH Q4H PRN 09/29/19 [History] Ferrous Gluconate 324 mg PO DAILY 09/29/19 [History] Furosemide 40 mg PO DAILY 09/29/19 [History] Lidocaine/Kinesiology Tape [Lidopure Patch 5% Combo Pack] 1 each TP DAILY [History] Methyl Salicylate/Menthol [Salonpas Patch] 1 each TP Q24H 09/29/19 [History] Multivit with Minerals No.55 [Centrum Flavor Burst Adult] 1 tab PO DAILY [History] Nitroglycerin [Nitrostat] 0.4 mg SL ASDIRECTED PRN 09/29/19 [History] Ondansetron [Zofran ODT] 1 tab PO Q8H PRN 09/29/19 [History] Rifaximin [Xifaxan] 550 mg PO BID 09/29/19 [History] Spironolactone [Aldactone] 100 mg PO DAILY 09/29/19 [History] Thiamine [Vitamin B-1] 1 tab PO DAILY 09/29/19 [History] hydrOXYzine HCL [Hydroxyzine HCl] 100 mg PO QID PRN 09/29/19 [History] oxyCODONE 5 mg PO Q6H PRN 09/29/19 [History] Meclizine [Antivert] 12.5 mg PO TID 11/28/19 [History] Past Medical History HEENT History: Reports: Hard of Hearing, Impaired Vision Cardiovascular History: Reports: CAD, [place], Other (See Below) Other Cardiovascular History: portal hypertension Respiratory History: Reports: Asthma Gastrointestinal History: Reports: Cirrhosis, GERD, Other (See Below) Other Gastrointestinal History: ascites, liver disease, cholecystitis, hepatic encephalopathy, stent placed in liver Genitourinary History: Reports: Renal Calculus, Other (See Below) Other Genitourinary History: urethral stent placed that extends to kidney SOLUTIONS CONSULTANT History: Reports: , Spontaneous , Other (See Below) Other SOLUTIONS CONSULTANT History: Irregular [place] Musculoskeletal History: Reports: Back Pain, Chronic, Fracture, Other (See Below ) Other Musculoskeletal History: colar bone, Neurological History: Reports: Brain Injury, CVA, Head Trauma, Seizure, Vertigo , Other (See Below) Other Neuro History: TBI ICH Skull defect Psychiatric History: Reports: Anxiety, Depression, Psych Hospitalization(s), Suicide Attempt Hematologic History: Reports: Blood Transfusion(s), Iron Deficiency, Other (See Below) Other Hematologic History: Hypokelemia, hypomagnesemia, hyponatremia Oncologic (Cancer) History: Reports: Cervix - Infectious Disease History Infectious Disease History: Reports: C-Difficile, Chicken Pox - Past Surgical History Head Surgeries/Procedures: Reports: None HEENT Surgical History: Reports: Adenoidectomy, Tonsillectomy Cardiovascular Surgical History: Reports: Coronary Artery Bypass Respiratory Surgical History: Reports: None GI Surgical History: Reports: Appendectomy, Cholecystectomy Female Surgical History: Reports: Cystectomy, Other (See Below) Other Female Surgeries/Procedures: removal of abscess from left breast Neurological Surgical History: Reports: None Musculoskeletal Surgical History: Reports: None, Carpal Tunnel Oncologic Surgical History: Reports: None Dermatological Surgical History: Reports: None Social & Family History - Family History Family Medical History: Noncontributory - Tobacco Use Smoking Status *Q: Current Every Day Smoker Years of Tobacco use: 32 Packs/Tins Daily: 0.2 - Caffeine Use Caffeine Use: Reports: Coffee Caffeine Use Comment: 2 cups of coffee per day; 3 diet pops per day - Recreational Drug Use Recreational Drug Use: No - Living Situation & Occupation Living situation: Reports: Single Occupation: Disabled (lives in Apartment, Sister and Uncle live in same building.) ED ROS GENERAL - Review of Systems Review Of Systems: See Below Constitutional: Denies: Fever, Chills HEENT: Reports: Other (Claims it is hard to focus her vision at times) Respiratory: Denies: Shortness of Breath, Cough GI/Abdominal: Reports: Nausea (Intermittent mild nausea, no vomiting). Denies: Abdominal Pain Skin: Reports: No Symptoms Neurological: Reports: Dizziness, Difficulty Walking (At times she feels like she is going to fall down when trying to ambulate). 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) Respiratory/Chest: No Respiratory Distress, Lungs Clear Cardiovascular: Regular Rate, Rhythm GI/Abdominal: Soft, Non-Tender Neurological: Alert, Oriented, No Motor/Sensory Deficits Psychiatric: Normal Affect, Normal Mood Skin Exam: Warm, Dry Course - Vital Signs Last Recorded V/S: Last Vital Signs Temp 97.8 F 11/28/19 22:35 Pulse 80 11/28/19 22:35 Resp 15 11/28/19 22:35 BP 109/65 11/28/19 22:35 Pulse Ox 97 11/28/19 22:35 - Orders/Labs/Meds Meds: Medications Discontinued Medications Generic Name Dose Route Start Last Admin Trade Name Freq PRN Reason Stop Dose Admin Docusate Sodium 100 mg 11/28/19 23:12 11/28/19 23:24 Colace 50 Mg/5 Ml Liquid .XX 11/28/19 23:13 100 mg ONETIME ONE Administration Ketorolac Tromethamine 10 mg 11/28/19 23:31 11/28/19 23:37 Toradol PO 11/28/19 23:32 10 mg ONETIME ONE Administration Oxycodone/Acetaminophen 1 tab 11/28/19 23:31 11/28/19 23:37 Percocet 325-10 Mg PO 1 tab ONETIME PRN Administration Pain (moderate 4-6) - Re-Assessments/Exams Free Text/Narrative Re-Assessment/Exam: 11/28/19 22:58 An attempt was made to remove the cerumen from the right ear canal. 11/28/19 23:25 After irrigation was unsuccessful removing the wax, I attempted to remove the wax with a plastic curette under direct visualization. This was very difficult because the patient was not tolerating the procedure even with light touch of the canal she was jerking and wincing. I did manage to dislodge part of the wax but it could not be removed. It appeared there was an abrasion of the ear canal during the attempt at removing the cerumen. I then had the patient lie on her left side and we filled the ear canal with liquid Colace. She remained fairly uncomfortable, hopefully there was no damage or irritation to the eardrum itself with her moving suddenly during the removal attempt. I still could not see the eardrum through the wax 11/28/19 23:32 Patient was given 1 oral 10 mg ketorolac, and 1 10 mg Percocet 03/13/20 23:54 By discharge the patient's symptoms improved significantly. I would like her to put 2 drops of Colace into her right ear 3 times a day through the weekend, then call the clinic on Sunday to see if Dr. Galarza can fit the patient in for a quick exam. Departure - Departure Time of Disposition: 00:06 Disposition: Home, Self-Care 01 Clinical Impression: Otalgia of right ear, Vertigo Cerumen impaction Qualifiers: Laterality: right Qualified Code(s): H61.21 - Impacted cerumen, right ear - Discharge Information Instructions: Vertigo, [id number] Referrals: Zelda Rodriguez DO [Primary Care Provider] - Forms: ED Department Discharge Care Plan Goals: Put 2 to 3 drops of Colace in your right ear and leave for 15 to 20 minutes 3 times a day through the weekend. Ibuprofen will be helpful for pain, and call the clinic on Sunday to see if Dr. Galarza can work you in for a quick exam. Return to the emergency room if worsening or concerns. Sepsis Event Note - Evaluation Sepsis Screening Result: No Definite Risk - Focused Exam Date Exam was Performed: 11/29/19 Time Exam was Performed: 17:46
[2019-11-28] MEDS ORDERED: Docusate Sodium Liquid 50 MG/5 ML ML 473 ML Bottle PO ONE (23:05)
[2019-11-28] MEDS ORDERED: Docusate Sodium Liquid 100 MG/10 ML UD Cup ONE (23:12)
[2019-11-28] MEDS ORDERED: Acetaminophen/oxyCODONE 325-10 MG Tab PO PRN (23:31)
[2019-11-28] MEDS ORDERED: Ketorolac 10 MG Tab PO ONE (23:31)
== END 2019-11-29 00:07 | disposition home or self-care (01) ==
LOC: JP.ED 22:16
DX: H61.21 Impacted cerumen, right ear (principal); R42 Dizziness and giddiness; F41.9 Anxiety disorder, unspecified; F32.9 Major depressive disorder, single episode, unspecified; F17.210 Nicotine dependence, cigarettes, uncomplicated; I25.10 Atherosclerotic heart disease of native coronary artery without angina pectoris; I25.2 Old myocardial infarction; Z91.013 Allergy to seafood; Z88.8 Allergy status to other drugs, medicaments and biological substances; Z91.018 Allergy to other foods; Z79.899 Other long term (current) drug therapy; Z86.73 Personal history of transient ischemic attack (TIA), and cerebral infarction without residual deficits
CPT/HCPCS: 99283; A9270

== ENCOUNTER 2020-01-26 21:01 | Emergency (ER) | payer MEDICAID ==
--- NOTE | 2020-01-26 21:24 | EDM.PDOC ---
ED HPI GENERAL MEDICAL PROBLEM - General Stated Complaint: MED[facility] Time Seen by Provider: 01/26/20 21:01 Source of Information: Reports: Patient, EMS, Police History Limitations: Reports: Intoxication - History of Present Illness INITIAL COMMENTS - FREE TEXT/NARRATIVE: 44-year-old female, chronic substance abuser and alcohol abuse, presents by EMS after a welfare check found her to be intoxicated at home. When they knocked on her door she was yelling at them and said I do not want to go in but then they heard her fall so they forced their way in and insisted she come in. She is very angry she is here, yelling, being very uncooperative and swinging at EMS and the nurses. According to EMS she had 2 empty bottles of vodka and an empty bottle of oxycodone in the room. After trying to talk her down for the first 10 to 15 minutes, it was obvious that she was going to need to be temporarily restrained for her own safety. Onset: Unknown/Unsure Associated Symptoms: Denies: Nausea/Vomiting, Shortness of Breath - Related Data Allergies Allergy/AdvReac Type Severity Reaction Status Date / Time Fish Containing Products Allergy Severe Airway Verified 11/28/19 22:30 Tightness ziprasidone [From Geodon] Allergy Severe Airway Verified 11/28/19 22:30 Tightness tree nut Allergy Hives Verified 11/28/19 22:30 lamotrigine [From Lamictal] AdvReac Leg Cramps Verified 11/28/19 22:30 msg Allergy Hives Uncoded 11/28/19 22:30 Home Meds: Home Meds Cyanocobalamin (Vitamin B-12) [B-12] 250 mcg PO DAILY 07/29/17 [History] Gabapentin [Neurontin] 200 mg PO BID 07/29/17 [History] Lactulose 30 ml PO TID 07/29/17 [History] levETIRAcetam [Keppra] 500 mg PO BID 07/29/17 [History] Omeprazole 20 mg PO BID 10/19/17 [History] Cholecalciferol (Vitamin D3) [Vitamin D3] 1 tab PO DAILY 09/16/19 [History] Folic Acid 1 mg PO DAILY 09/16/19 [History] Magnesium 400 mg PO DAILY 09/16/19 [History] Albuterol Sulfate [Proventil Hfa] 6.7 gm IH Q4H 09/29/19 [History] Albuterol [Proventil Neb Soln] 2.5 mg INH Q4H PRN 09/29/19 [History] Ferrous Gluconate 324 mg PO DAILY 09/29/19 [History] Furosemide 40 mg PO DAILY 09/29/19 [History] Lidocaine/Kinesiology Tape [Lidopure Patch 5% Combo Pack] 1 each TP DAILY [History] Methyl Salicylate/Menthol [Salonpas Patch] 1 each TP Q24H 09/29/19 [History] Multivit with Minerals No.55 [Centrum Flavor Burst Adult] 1 tab PO DAILY [History] Nitroglycerin [Nitrostat] 0.4 mg SL ASDIRECTED PRN 09/29/19 [History] Ondansetron [Zofran ODT] 1 tab PO Q8H PRN 09/29/19 [History] Rifaximin [Xifaxan] 550 mg PO BID 09/29/19 [History] Spironolactone [Aldactone] 100 mg PO DAILY 09/29/19 [History] Thiamine [Vitamin B-1] 1 tab PO DAILY 09/29/19 [History] hydrOXYzine HCL [Hydroxyzine HCl] 100 mg PO QID PRN 09/29/19 [History] oxyCODONE 5 mg PO Q6H PRN 09/29/19 [History] Meclizine [Antivert] 12.5 mg PO TID 11/28/19 [History] Past Medical History HEENT History: Reports: Hard of Hearing, Impaired Vision Cardiovascular History: Reports: CAD, [place], Other (See Below) Other Cardiovascular History: portal hypertension Respiratory History: Reports: Asthma Gastrointestinal History: Reports: Cirrhosis, GERD, Other (See Below) Other Gastrointestinal History: ascites, liver disease, cholecystitis, hepatic encephalopathy, stent placed in liver Genitourinary History: Reports: Renal Calculus, Other (See Below) Other Genitourinary History: urethral stent placed that extends to kidney ENVELOPE FOLDER History: Reports: , Spontaneous , Other (See Below) Other ENVELOPE FOLDER History: Irregular [place] Musculoskeletal History: Reports: Back Pain, Chronic, Fracture, Other (See Below ) Other Musculoskeletal History: colar bone, Neurological History: Reports: Brain Injury, CVA, Head Trauma, Seizure, Vertigo , Other (See Below) Other Neuro History: TBI ICH Skull defect Psychiatric History: Reports: Anxiety, Depression, Psych Hospitalization(s), Suicide Attempt Hematologic History: Reports: Blood Transfusion(s), Iron Deficiency, Other (See Below) Other Hematologic History: Hypokelemia, hypomagnesemia, hyponatremia Oncologic (Cancer) History: Reports: Cervix - Infectious Disease History Infectious Disease History: Reports: C-Difficile, Chicken Pox - Past Surgical History Head Surgeries/Procedures: Reports: None HEENT Surgical History: Reports: Adenoidectomy, Tonsillectomy Cardiovascular Surgical History: Reports: Coronary Artery Bypass Respiratory Surgical History: Reports: None GI Surgical History: Reports: Appendectomy, Cholecystectomy Female Surgical History: Reports: Cystectomy, Other (See Below) Other Female Surgeries/Procedures: removal of abscess from left breast Neurological Surgical History: Reports: None Musculoskeletal Surgical History: Reports: None, Carpal Tunnel Oncologic Surgical History: Reports: None Dermatological Surgical History: Reports: None Social & Family History - Family History Family Medical History: Noncontributory - Caffeine Use Caffeine Use: Reports: Coffee Caffeine Use Comment: 2 cups of coffee per day; 3 diet pops per day - Living Situation & Occupation Living situation: Reports: Single Occupation: Disabled (lives in Apartment, Sister and Uncle live in same building.) ED ROS GENERAL - Review of Systems Review Of Systems: See Below Reason Not Obtained: Patient is not cooperative with only a few questions answered Constitutional: Denies: Fever, Chills Respiratory: Denies: Shortness of Breath Cardiovascular: Denies: Chest Pain GI/Abdominal: Denies: Nausea, Vomiting ED EXAM, GENERAL - Physical Exam Exam: See Below Exam Limited By: Intoxication General Appearance: Alert, Other (Very uncooperative, yelling and insisting she stand up and leave despite being intoxicated) Head: Other (Fairly large right cranial deficit which is chronic, no new trauma seen) Respiratory/Chest: No Respiratory Distress Neurological: Alert, Other (Fairly intoxicated) Skin Exam: Warm, Dry Course - Vital Signs Last Recorded V/S: Last Vital Signs Temp Pulse 90 01/26/20 21:55 Resp 20 01/26/20 21:55 BP 110/90 01/26/20 21:55 Pulse Ox 90 L 01/26/20 21:55 - Orders/Labs/Meds Labs: Laboratory Tests 01/26/20 01/26/20 01/26/20 Range/Units 21:14 21:14 21:14 WBC 9.3 (4.5-11.0) K/uL RBC 5.02 (3.30-5.50) M/uL Hgb 15.4 H (12.0-15.0) g/dL Hct 46.5 (36.0-48.0) % MCV 93 (80-98) fL MCH 31 (27-31) pg MCHC 33 (32-36) % Plt Count 153 (150-400) K/uL Neut % (Auto) 45 (36-66) % Lymph % (Auto) 46 H (24-44) % Kern % (Auto) 6 (2-6) % Eos % (Auto) 2 (2-4) % Baso % (Auto) 1 (0-1) % Sodium 151 H (140-148) mmol/L Potassium 5.0 (3.6-5.2) mmol/L Chloride 115 H (100-108) mmol/L Carbon Dioxide 25 (21-32) mmol/L Anion Gap 16.0 H (5.0-14.0) mmol/L BUN 12 (7-18) mg/dL Creatinine 1.0 (0.6-1.0) mg/dL Est Cr Clr Drug Dosing TNP Estimated GFR (MDRD) 60 (>60) Glucose 95 (74-106) mg/dL Calcium 9.9 (8.5-10.1) mg/dL Total Bilirubin 0.4 (0.2-1.0) mg/dL AST 32 (15-37) U/L ALT 44 (12-78) U/L Alkaline Phosphatase 128 H (46-116) U/L Total Protein 7.9 (6.4-8.2) g/dL Albumin 3.5 (3.4-5.0) g/dL Globulin 4.4 H (2.3-3.5) g/dL Albumin/Globulin Ratio 0.8 L (1.2-2.2) Acetaminophen 0.0 L (10.0-30.0) ug/mL Ethyl Alcohol 324 mg/dL - Re-Assessments/Exams Free Text/Narrative Re-Assessment/Exam: 01/26/20 21:27 She has an empty bottle of oxycodone, 90 total that was prescribed 2 weeks ago. EtOH, acetaminophen, CBC and BMP were obtained. 01/26/20 21:40 EtOH was 0.324, acetaminophen 0. CBC was normal, electrolytes and LFTs also stable and within normal limits. When the patient is presented with going home , she comes down and interacts normally although she has slurred speech. 01/26/20 21:43 There is no need for hospitalization at this time as long as she is cooperative. Her family contact agreed to come and get her and give her a ride home. Hopefully they are able to remove any alcohol that is remaining in the home. She needs to recheck with her primary provider later this week. Dr. Zelda Rodriguez is her primary and was contacted and informed of her situation and will check on her later this week. Departure - Departure Time of Disposition: 22:05 Disposition: Home, Self-Care 01 Clinical Impression: Alcohol intoxication Qualifiers: Complication of substance-induced condition: uncomplicated Qualified Code(s): F10.920 - Alcohol use, unspecified with intoxication, uncomplicated - Discharge Information Instructions: Alcohol Intoxication Referrals: PCP,None [Primary Care Provider] - Forms: ED Department Discharge Care Plan Goals: Drink only water and rehydrate yourself and avoid any further alcohol intake. Recheck with your regular doctor later this week if you are still having concerns. Sepsis Event Note - Focused Exam Vital Signs: Vital Signs Pulse Resp BP Pulse Ox 01/26/20 21:55 90 20 110/90 90 L Date Exam was Performed: 01/26/20 Time Exam was Performed: 22:30
== END 2020-01-26 22:05 | disposition home or self-care (01) ==
LOC: JP.ED 21:01
DX: F10.129 Alcohol abuse with intoxication, unspecified (principal); Y90.8 Blood alcohol level of 240 mg/100 ml or more; I25.10 Atherosclerotic heart disease of native coronary artery without angina pectoris; I25.2 Old myocardial infarction; I10 Essential (primary) hypertension; J45.909 Unspecified asthma, uncomplicated; K21.9 Gastro-esophageal reflux disease without esophagitis; Z86.73 Personal history of transient ischemic attack (TIA), and cerebral infarction without residual deficits; R56.9 Unspecified convulsions; F41.9 Anxiety disorder, unspecified; F32.9 Major depressive disorder, single episode, unspecified; Z91.013 Allergy to seafood; Z88.8 Allergy status to other drugs, medicaments and biological substances; Z91.018 Allergy to other foods
CPT/HCPCS: 36415; 80053; 80307; 85025; 99284

== ENCOUNTER 2020-01-28 11:41 | Emergency (ER) | payer MEDICAID ==
[2020-01-28] MEDS ORDERED: Sodium Chloride 0.9% 1,000 ML IV SCH ×2 (11:45→12:30)
--- NOTE | 2020-01-28 11:50 | EDM.PDOCBH ---
ED HPI GENERAL MEDICAL PROBLEM - General Chief Complaint: Drug or Alcohol Abuse Stated Complaint: MEDICAL VIA [facility] Time Seen by Provider: 01/28/20 11:44 Source of Information: Reports: Patient History Limitations: Reports: No Limitations - History of Present Illness INITIAL COMMENTS - FREE TEXT/NARRATIVE: pt arrived with a history of possibly drinking a liter of vodka this am. She states that she wants to dye. People are dying around her the whole w[place]rld id dying. Onset: Today, Sudden, Other (pt was seen earlier in the week and was very intoxuicated. ) Duration: Hour(s): Location: Reports: Generalized Severity: Moderate Associated Symptoms: Reports: Weakness Generalized Pain Score (Numeric/FACES): 10 - Related Data Allergies Allergy/AdvReac Type Severity Reaction Status Date / Time Fish Containing Products Allergy Severe Airway Verified 01/28/20 11:45 Tightness ziprasidone [From Geodon] Allergy Severe Airway Verified 01/28/20 11:45 Tightness tree nut Allergy Hives Verified 01/28/20 11:45 lamotrigine [From Lamictal] AdvReac Leg Cramps Verified 01/28/20 11:45 msg Allergy Hives Uncoded 01/28/20 11:45 Home Meds: Home Meds Cyanocobalamin (Vitamin B-12) [B-12] 250 mcg PO DAILY 07/29/17 [History] Gabapentin [Neurontin] 200 mg PO BID 07/29/17 [History] Lactulose 30 ml PO TID 07/29/17 [History] levETIRAcetam [Keppra] 500 mg PO BID 07/29/17 [History] Omeprazole 20 mg PO BID 10/19/17 [History] Cholecalciferol (Vitamin D3) [Vitamin D3] 1 tab PO DAILY 09/16/19 [History] Folic Acid 1 mg PO DAILY 09/16/19 [History] Magnesium 400 mg PO DAILY 09/16/19 [History] Albuterol Sulfate [Proventil Hfa] 6.7 gm IH Q4H 09/29/19 [History] Albuterol [Proventil Neb Soln] 2.5 mg INH Q4H PRN 09/29/19 [History] Ferrous Gluconate 324 mg PO DAILY 09/29/19 [History] Furosemide 40 mg PO DAILY 09/29/19 [History] Lidocaine/Kinesiology Tape [Lidopure Patch 5% Combo Pack] 1 each TP DAILY [History] Methyl Salicylate/Menthol [Salonpas Patch] 1 each TP Q24H 09/29/19 [History] Multivit with Minerals No.55 [Centrum Flavor Burst Adult] 1 tab PO DAILY [History] Nitroglycerin [Nitrostat] 0.4 mg SL ASDIRECTED PRN 09/29/19 [History] Ondansetron [Zofran ODT] 1 tab PO Q8H PRN 09/29/19 [History] Rifaximin [Xifaxan] 550 mg PO BID 09/29/19 [History] Spironolactone [Aldactone] 100 mg PO DAILY 09/29/19 [History] Thiamine [Vitamin B-1] 1 tab PO DAILY 09/29/19 [History] hydrOXYzine HCL [Hydroxyzine HCl] 100 mg PO QID PRN 09/29/19 [History] oxyCODONE 5 mg PO Q6H PRN 09/29/19 [History] Meclizine [Antivert] 12.5 mg PO TID 11/28/19 [History] Past Medical History HEENT History: Reports: Hard of Hearing, Impaired Vision Cardiovascular History: Reports: CAD, MS, Other (See Below) Other Cardiovascular History: portal hypertension Respiratory History: Reports: Asthma Gastrointestinal History: Reports: Cirrhosis, GERD, Other (See Below) Other Gastrointestinal History: ascites, liver disease, cholecystitis, hepatic encephalopathy, stent placed in liver Genitourinary History: Reports: Renal Calculus, Other (See Below) Other Genitourinary History: urethral stent placed that extends to kidney DOMESTIC TECHNICIAN History: Reports: , Spontaneous , Other (See Below) Other DOMESTIC TECHNICIAN History: Irregular [place] Musculoskeletal History: Reports: Back Pain, Chronic, Fracture, Other (See Below ) Other Musculoskeletal History: colar bone, Neurological History: Reports: Brain Injury, CVA, Head Trauma, Seizure, Vertigo , Other (See Below) Other Neuro History: TBI ICH Skull defect Psychiatric History: Reports: Anxiety, Depression, Psych Hospitalization(s), Suicide Attempt Hematologic History: Reports: Blood Transfusion(s), Iron Deficiency, Other (See Below) Other Hematologic History: Hypokelemia, hypomagnesemia, hyponatremia Oncologic (Cancer) History: Reports: Cervix - Infectious Disease History Infectious Disease History: Reports: C-Difficile, Chicken Pox - Past Surgical History Head Surgeries/Procedures: Reports: None HEENT Surgical History: Reports: Adenoidectomy, Tonsillectomy Cardiovascular Surgical History: Reports: Coronary Artery Bypass Respiratory Surgical History: Reports: None GI Surgical History: Reports: Appendectomy, Cholecystectomy Female Surgical History: Reports: Cystectomy, Other (See Below) Other Female Surgeries/Procedures: removal of abscess from left breast Neurological Surgical History: Reports: None Musculoskeletal Surgical History: Reports: None, Carpal Tunnel Oncologic Surgical History: Reports: None Dermatological Surgical History: Reports: None Social & Family History - Family History Family Medical History: Noncontributory - Caffeine Use Caffeine Use: Reports: Coffee Caffeine Use Comment: 2 cups of coffee per day; 3 diet pops per day - Living Situation & Occupation Living situation: Reports: Single Occupation: Disabled (lives in Apartment, Sister and Uncle live in same building.) ED ROS GENERAL - Review of Systems Review Of Systems: See Below Constitutional: Reports: Decreased Appetite, Other (pt has been drinking very heavily) HEENT: Reports: No Symptoms Respiratory: Reports: Other (pt is intoxicated and has been vomiting. ) Cardiovascular: Reports: No Symptoms Endocrine: Reports: No Symptoms GI/Abdominal: Reports: Other (pt has been vomiting. ) : Reports: Other (pt is dehydrated. ) Musculoskeletal: Reports: No Symptoms Skin: Reports: No Symptoms ED EXAM, BEHAVIORAL HEALTH - Physical Exam Exam: See Below Text/Narrative:: pt arrived with a history of drinking a liter this am. While she was in ER she pulled out a knife and tried to cut herself. Exam Limited By: No Limitations General Appearance: Alert, Anxious, Other (pt is out of control) Ears: Normal TMs Nose: Normal Inspection Throat/Mouth: Normal Inspection, Other (pt has emesis around her mouith. ) Head: Atraumatic Neck: Normal Inspection Respiratory/Chest: No Respiratory Distress Cardiovascular: Regular Rate, Rhythm GI/Abdominal: Soft, Non-Tender (Female) Exam: Deferred Rectal (Female) Exam: Deferred Back Exam: Normal Inspection Extremities: Normal Inspection Neurological: Alert, Disoriented to Place Psychiatric: Alert, Disoriented, Suicidal Plan, Suicidal Thoughts, Threatening Behavior, Other (pt is very intoxicated. ) COURSE, BEHAVIORAL HEALTH COMP - Course Vital Signs: Last Vital Signs Temp 36.3 C 01/28/20 13:01 Pulse 90 01/28/20 13:01 Resp 22 H 01/28/20 13:01 BP 115/54 L 01/28/20 13:01 Pulse Ox 93 L 01/28/20 13:01 Orders, Labs, Meds: Active Orders 24 hr Category Date Time Status Sodium Chloride 0.9% [Normal Saline] 1,000 ml Med 01/28/20 11:45 Active IV ASDIRECTED Sodium Chloride 0.9% [Normal Saline] 1,000 ml Med 01/28/20 12:30 Active IV ASDIRECTED Suicide Precautions [OM.PC] Routine Oth 01/28/20 13:35 Ordered Medication Orders Sodium Chloride (Normal Saline) 1,000 mls @ 999 mls/hr IV ASDIRECTED JOSE Last Admin: 01/28/20 12:30 Dose: 999 mls/hr Sodium Chloride (Normal Saline) 1,000 mls @ 999 mls/hr IV ASDIRECTED JOSE Laboratory Tests 01/28/20 01/28/20 01/28/20 Range/Units 11:43 11:48 12:12 WBC (4.5-11.0) K/uL RBC (3.30-5.50) M/uL Hgb (12.0-15.0) g/dL Hct (36.0-48.0) % MCV (80-98) fL MCH (27-31) pg MCHC (32-36) % Plt Count (150-400) K/uL Neut % (Auto) (36-66) % Lymph % (Auto) (24-44) % [place] % (Auto) (2-6) % Eos % (Auto) (2-4) % Baso % (Auto) (0-1) % Sodium (140-148) mmol/L Potassium (3.6-5.2) mmol/L Chloride (100-108) mmol/L Carbon Dioxide (21-32) mmol/L Anion Gap (5.0-14.0) mmol/L BUN (7-18) mg/dL Creatinine (0.6-1.0) mg/dL Est Cr Clr Drug Dosing Estimated GFR (MDRD) (>60) Glucose (74-106) mg/dL Calcium (8.5-10.1) mg/dL Total Bilirubin (0.2-1.0) mg/dL AST (15-37) U/L ALT (12-78) U/L Alkaline Phosphatase (46-116) U/L Total Protein (6.4-8.2) g/dL Albumin (3.4-5.0) g/dL Globulin (2.3-3.5) g/dL Albumin/Globulin Ratio (1.2-2.2) Lipase (73-393) U/L Urine Color Yellow (YELLOW) Urine Appearance Cloudy A (CLEAR) Urine pH 6.0 (5.0-8.0) Ur Specific [place] >= 1.030 (1.008-1.030) Urine Protein >=300 H (NEGATIVE) mg/dL Urine Glucose (UA) Negative (NEGATIVE) mg/dL Urine Ketones Negative (NEGATIVE) mg/dL Urine Occult Blood Moderate H (NEGATIVE) Urine Nitrite Negative (NEGATIVE) Urine Bilirubin Negative (NEGATIVE) Urine Urobilinogen 0.2 (0.2-1.0) EU/dL Ur Leukocyte Esterase Negative (NEGATIVE) Urine RBC 10-20 H (0-5) Urine WBC 0-5 (0-5) Ur Epithelial Cells Moderate Amorphous Sediment Rare Urine Bacteria Many Urine Mucus Rare Urine Opiates Screen Negative (NEGATIVE) Ur Oxycodone Screen Presumptive positive H (NEGATIVE) Urine Methadone Screen Negative (NEGATIVE) Ur Propoxyphene Screen Negative (NEGATIVE) Ur Barbiturates Screen Negative (NEGATIVE) Ur Tricyclics Screen Negative (NEGATIVE) Ur Phencyclidine Scrn Negative (NEGATIVE) Ur Amphetamine Screen Negative (NEGATIVE) U Methamphetamines Scrn Negative (NEGATIVE) Urine MDMA Screen Negative (NEGATIVE) U Benzodiazepines Scrn Negative (NEGATIVE) U Cocaine Metab Screen Negative (NEGATIVE) U Marijuana (THC) Screen Negative (NEGATIVE) Ethyl Alcohol 319 mg/dL 01/28/20 01/28/20 01/28/20 Range/Units 12:12 12:12 12:36 WBC 12.6 H (4.5-11.0) K/uL RBC 5.43 (3.30-5.50) M/uL Hgb 16.6 H (12.0-15.0) g/dL Hct 49.8 H (36.0-48.0) % MCV 92 (80-98) fL MCH 31 (27-31) pg MCHC 33 (32-36) % Plt Count 187 (150-400) K/uL Neut % (Auto) 67 H (36-66) % Lymph % (Auto) 27 (24-44) % [place] % (Auto) 5 (2-6) % Eos % (Auto) 0 L (2-4) % Baso % (Auto) 1 (0-1) % Sodium 150 H (140-148) mmol/L Potassium 4.1 (3.6-5.2) mmol/L Chloride 109 H (100-108) mmol/L Carbon Dioxide 25 (21-32) mmol/L Anion Gap 20.1 H (5.0-14.0) mmol/L BUN 23 H D (7-18) mg/dL Creatinine 1.2 H (0.6-1.0) mg/dL Est Cr Clr Drug Dosing TNP Estimated GFR (MDRD) 48 L (>60) Glucose 97 (74-106) mg/dL Calcium 9.8 (8.5-10.1) mg/dL Total Bilirubin 0.7 D (0.2-1.0) mg/dL AST 42 H (15-37) U/L ALT 46 (12-78) U/L Alkaline Phosphatase 128 H (46-116) U/L Total Protein 7.9 (6.4-8.2) g/dL Albumin 3.9 (3.4-5.0) g/dL Globulin 4.0 H (2.3-3.5) g/dL Albumin/Globulin Ratio 1.0 L (1.2-2.2) Lipase 114 (73-393) U/L Urine Color (YELLOW) Urine Appearance (CLEAR) Urine pH (5.0-8.0) Ur Specific [place] (1.008-1.030) Urine Protein (NEGATIVE) mg/dL Urine Glucose (UA) (NEGATIVE) mg/dL Urine Ketones (NEGATIVE) mg/dL Urine Occult Blood (NEGATIVE) Urine Nitrite (NEGATIVE) Urine Bilirubin (NEGATIVE) Urine Urobilinogen (0.2-1.0) EU/dL Ur Leukocyte Esterase (NEGATIVE) Urine RBC (0-5) Urine WBC (0-5) Ur Epithelial Cells Amorphous Sediment Urine Bacteria Urine Mucus Urine Opiates Screen (NEGATIVE) Ur Oxycodone Screen (NEGATIVE) Urine Methadone Screen (NEGATIVE) Ur Propoxyphene Screen (NEGATIVE) Ur Barbiturates Screen (NEGATIVE) Ur Tricyclics Screen (NEGATIVE) Ur Phencyclidine Scrn (NEGATIVE) Ur Amphetamine Screen (NEGATIVE) U Methamphetamines Scrn (NEGATIVE) Urine MDMA Screen (NEGATIVE) U Benzodiazepines Scrn (NEGATIVE) U Cocaine Metab Screen (NEGATIVE) U Marijuana (THC) Screen (NEGATIVE) Ethyl Alcohol mg/dL Medications Generic Name Dose Route Start Last Admin Trade Name Freq PRN Reason Stop Dose Admin Sodium Chloride 1,000 mls @ 999 mls/hr 01/28/20 11:45 01/28/20 12:30 Normal Saline IV 999 mls/hr ASDIRECTED JOSE Administration Sodium Chloride 1,000 mls @ 999 mls/hr 01/28/20 12:30 Normal Saline IV ASDIRECTED JOSE Discontinued Medications Generic Name Dose Route Start Last Admin Trade Name Freq PRN Reason Stop Dose Admin Diphenhydramine HCl 50 mg 01/28/20 13:08 01/28/20 13:48 Benadryl IM 01/28/20 13:09 50 mg ONETIME ONE Administration Haloperidol Lactate 5 mg 01/28/20 13:09 01/28/20 13:48 Haldol IM 01/28/20 13:10 5 mg ONETIME ONE Administration Haloperidol Lactate Confirm 01/28/20 13:10 01/28/20 13:48 Haldol Administered 01/28/20 13:11 Not Given Dose 5 mg .ROUTE .STK-MED ONE Lorazepam 2 mg 01/28/20 13:07 01/28/20 13:15 Ativan IM 01/28/20 13:08 2 mg ONETIME ONE Administration Medical Clearance: 01/28/20 13:47 pt became out of control and she was threatening to kill herself. She had a knife in her purse and she tried to cut herself. She is very intoxicated at this point. She was given a B52 and she has been put in 4 point restrains. She is very dehydrated from her drinking. She has progressively gotten more out of control. 01/28/20 13:56 01/28/20 15:10 once she was somewhat sedated the pt was given iv fluids. Her iv needed to be restarted. She is much calmer than on arrival. Departure - Departure Time of Disposition: 15:12 Disposition: Home, Self-Care 01 Condition: Fair Clinical Impression: Dehydration, Acute alcohol intoxication, Suicidal behavior, Seizure disorder - Discharge Information Referrals: PCP,None [Primary Care Provider] - Forms: ED Department Discharge Care Plan Goals: transfer to -- [place]. Sepsis Event Note - Focused Exam Vital Signs: Vital Signs Temp Pulse Resp BP Pulse Ox 01/28/20 13:01 36.3 C 90 22 H 115/54 L 93 L Date Exam was Performed: 01/28/20 Time Exam was Performed: 15:10 - My Orders Last 24 Hours: My Active Orders 01/28/20 11:45 Sodium Chloride 0.9% [Normal Saline] 1,000 ml IV ASDIRECTED 01/28/20 12:30 Sodium Chloride 0.9% [Normal Saline] 1,000 ml IV ASDIRECTED 01/28/20 13:35 Suicide Precautions [OM.PC] Routine - Assessment/Plan Last 24 Hours: My Active Orders 01/28/20 11:45 Sodium Chloride 0.9% [Normal Saline] 1,000 ml IV ASDIRECTED 01/28/20 12:30 Sodium Chloride 0.9% [Normal Saline] 1,000 ml IV ASDIRECTED 01/28/20 13:35 Suicide Precautions [OM.PC] Routine
--- NOTE | 2020-01-28 12:31 | CR ---
CHEST: Portable 01/28/2020 at 12:21 PM CLINICAL HISTORY:Vomiting COMPARISON:CT 2009 FINDINGS: Patient has had previous sternotomy. The heart size, pulmonary vascularity and hilar structures are normal. No infiltrate effusion or pneumothorax is seen. IMPRESSION: No acute cardiopulmonary process.
[2020-01-28] MEDS ORDERED: LORazepam 2 MG/ML SDV IM ONE (13:07)
[2020-01-28] MEDS ORDERED: diphenhydrAMINE 50 MG/ML SDV IM ONE (13:08)
[2020-01-28] MEDS ORDERED: Haloperidol Lactate 5 MG/ML SDV IM ONE (13:09)
[2020-01-28] MEDS ORDERED: Haloperidol Lactate 5 MG/ML SDV ONE (13:10)
[2020-01-28] MEDS ORDERED: LORazepam 2 MG/ML SDV IVPUSH ONE ×2 (15:15→16:37)
== END 2020-01-28 18:27 | disposition home or self-care (01) ==
LOC: JP.ED 11:41
DX: F10.129 Alcohol abuse with intoxication, unspecified (principal); E86.0 Dehydration; F41.9 Anxiety disorder, unspecified; F32.9 Major depressive disorder, single episode, unspecified; G40.909 Epilepsy, unspecified, not intractable, without status epilepticus; R45.851 Suicidal ideations; I25.10 Atherosclerotic heart disease of native coronary artery without angina pectoris; I25.2 Old myocardial infarction; I10 Essential (primary) hypertension; J45.909 Unspecified asthma, uncomplicated; K21.9 Gastro-esophageal reflux disease without esophagitis; Z86.73 Personal history of transient ischemic attack (TIA), and cerebral infarction without residual deficits; Z91.013 Allergy to seafood; Z88.8 Allergy status to other drugs, medicaments and biological substances; Z91.018 Allergy to other foods; Z79.899 Other long term (current) drug therapy
CPT/HCPCS: 36415; 71045; 80053; 80305; 80307; 81001; 83690; 85025; 96361; 96372; 96374; 96376; 99285; J1200; J1630; J2060; J7030

== ENCOUNTER 2020-02-01 05:22 | Emergency (ER) | payer MEDICAID ==
--- NOTE | 2020-02-01 05:47 | EDM.PDOC ---
ED HPI GENERAL MEDICAL PROBLEM - General Chief Complaint: Chest Pain Stated Complaint: [facility] Time Seen by Provider: 02/01/20 05:35 Source of Information: Reports: Patient, Old Records, RN Notes Reviewed History Limitations: Reports: No Limitations - History of Present Illness INITIAL COMMENTS - FREE TEXT/NARRATIVE: 44-year-old female presents emergency department today via EMS services complaint of chest pain this is her third visit to the emergency department this month initial visit alcohol intoxication refused treatment came in 4 days prior alcohol intoxication with suicidal ideation was transferred to [facility]. She states she does not know when she was discharged from [place] complaints chest pain that started anywhere from an hour to 3 hours prior admits she is only had a couple of alcoholic drinks however she has difficulty speaking in full sentences and her speech is mumbled. Declines alcohol treatment at this time chest pain Pain Score (Numeric/FACES): 8 abd pain Pain Score (Numeric/FACES): 8 headache Pain Score (Numeric/FACES): 9 - Related Data Allergies Allergy/AdvReac Type Severity Reaction Status Date / Time Fish Containing Products Allergy Severe Airway Verified 02/01/20 05:24 Tightness ziprasidone [From Geodon] Allergy Severe Airway Verified 02/01/20 05:24 Tightness tree nut Allergy Hives Verified 02/01/20 05:24 lamotrigine [From Lamictal] AdvReac Leg Cramps Verified 02/01/20 05:24 msg Allergy Hives Uncoded 02/01/20 05:24 Home Meds: Home Meds Cyanocobalamin (Vitamin B-12) [B-12] 250 mcg PO DAILY 07/29/17 [History] Gabapentin [Neurontin] 200 mg PO BID 07/29/17 [History] Lactulose 30 ml PO TID 07/29/17 [History] levETIRAcetam [Keppra] 500 mg PO BID 07/29/17 [History] Omeprazole 20 mg PO BID 10/19/17 [History] Cholecalciferol (Vitamin D3) [Vitamin D3] 1 tab PO DAILY 09/16/19 [History] Folic Acid 1 mg PO DAILY 09/16/19 [History] Magnesium 400 mg PO DAILY 09/16/19 [History] Albuterol Sulfate [Proventil Hfa] 6.7 gm IH Q4H 09/29/19 [History] Albuterol [Proventil Neb Soln] 2.5 mg INH Q4H PRN 09/29/19 [History] Ferrous Gluconate 324 mg PO DAILY 09/29/19 [History] Furosemide 40 mg PO DAILY 09/29/19 [History] Lidocaine/Kinesiology Tape [Lidopure Patch 5% Combo Pack] 1 each TP DAILY [History] Methyl Salicylate/Menthol [Salonpas Patch] 1 each TP Q24H 09/29/19 [History] Multivit with Minerals No.55 [Centrum Flavor Burst Adult] 1 tab PO DAILY [History] Nitroglycerin [Nitrostat] 0.4 mg SL ASDIRECTED PRN 09/29/19 [History] Ondansetron [Zofran ODT] 1 tab PO Q8H PRN 09/29/19 [History] Rifaximin [Xifaxan] 550 mg PO BID 09/29/19 [History] Spironolactone [Aldactone] 100 mg PO DAILY 09/29/19 [History] Thiamine [Vitamin B-1] 1 tab PO DAILY 09/29/19 [History] hydrOXYzine HCL [Hydroxyzine HCl] 100 mg PO QID PRN 09/29/19 [History] oxyCODONE 5 mg PO Q6H PRN 09/29/19 [History] Meclizine [Antivert] 12.5 mg PO TID 11/28/19 [History] Past Medical History HEENT History: Reports: Hard of Hearing, Impaired Vision Cardiovascular History: Reports: CAD, ME, Other (See Below) Other Cardiovascular History: portal hypertension Respiratory History: Reports: Asthma Gastrointestinal History: Reports: Cirrhosis, GERD, Other (See Below) Other Gastrointestinal History: ascites, liver disease, cholecystitis, hepatic encephalopathy, stent placed in liver Genitourinary History: Reports: Renal Calculus, Other (See Below) Other Genitourinary History: urethral stent placed that extends to kidney INFORMATION OFFICER History: Reports: , Spontaneous , Other (See Below) Other INFORMATION OFFICER History: Irregular [place] Musculoskeletal History: Reports: Back Pain, Chronic, Fracture, Other (See Below ) Other Musculoskeletal History: colar bone, Neurological History: Reports: Brain Injury, CVA, Head Trauma, Seizure, Vertigo , Other (See Below) Other Neuro History: TBI ICH Skull defect Psychiatric History: Reports: Anxiety, Depression, Psych Hospitalization(s), Suicide Attempt Hematologic History: Reports: Blood Transfusion(s), Iron Deficiency, Other (See Below) Other Hematologic History: Hypokelemia, hypomagnesemia, hyponatremia Oncologic (Cancer) History: Reports: Cervix - Infectious Disease History Infectious Disease History: Reports: C-Difficile, Chicken Pox - Past Surgical History Head Surgeries/Procedures: Reports: None HEENT Surgical History: Reports: Adenoidectomy, Tonsillectomy Cardiovascular Surgical History: Reports: Coronary Artery Bypass Respiratory Surgical History: Reports: None GI Surgical History: Reports: Appendectomy, Cholecystectomy Female Surgical History: Reports: Cystectomy, Other (See Below) Other Female Surgeries/Procedures: removal of abscess from left breast Neurological Surgical History: Reports: None Musculoskeletal Surgical History: Reports: None, Carpal Tunnel Oncologic Surgical History: Reports: None Dermatological Surgical History: Reports: None Social & Family History - Family History Family Medical History: Noncontributory - Tobacco Use Smoking Status *Q: Current Every Day Smoker Years of Tobacco use: 38 Packs/Tins Daily: 0.1 - Caffeine Use Caffeine Use: Reports: Coffee Caffeine Use Comment: 2 cups of coffee per day; 3 diet pops per day - Recreational Drug Use Recreational Drug Use: No - Living Situation & Occupation Living situation: Reports: Single Occupation: Disabled (lives in Apartment, Sister and Uncle live in same building.) ED ROS GENERAL - Review of Systems Review Of Systems: See Below Constitutional: Reports: No Symptoms HEENT: Reports: No Symptoms Respiratory: Reports: Shortness of Breath Cardiovascular: Reports: Chest Pain GI/Abdominal: Reports: No Symptoms : Reports: No Symptoms Musculoskeletal: Reports: No Symptoms ED EXAM, GENERAL - Physical Exam Exam: See Below Exam Limited By: Intoxication General Appearance: Alert, WD/WN, No Apparent Distress Eye Exam: Bilateral Eye: Normal Inspection Respiratory/Chest: No Respiratory Distress, Lungs Clear, Normal Breath Sounds, No Accessory Muscle Use, Chest Non-Tender Cardiovascular: Regular Rate, Rhythm, No Murmur GI/Abdominal: Soft, Tender (Generalized tenderness to palpation) Extremities: Normal Inspection, No Pedal Edema Course - Vital Signs Last Recorded V/S: Last Vital Signs Temp 97.7 F 02/01/20 05:28 Pulse 100 05/17/20 05:28 Resp 17 02/01/20 05:28 BP 127/71 02/01/20 05:28 Pulse Ox 96 02/01/20 05:28 - Orders/Labs/Meds Orders: Active Orders 24 hr Category Date Time Status Cardiac Monitoring [RC] .As Directed Care 02/01/20 05:42 Active Chest 1V Frontal [CR] Stat Exams 02/01/20 05:42 Taken CULTURE URINE [RM] Urgent Lab 02/01/20 06:22 Ordered fentaNYL [Sublimaze] Med 02/01/20 06:26 Once 50 mcg IM ONETIME ONE Labs: Laboratory Tests 02/01/20 02/01/20 02/01/20 Range/Units 05:52 05:52 05:52 WBC 7.7 (4.5-11.0) K/uL RBC 4.12 (3.30-5.50) M/uL Hgb 12.8 D (12.0-15.0) g/dL Hct 37.8 (36.0-48.0) % MCV 92 (80-98) fL MCH 31 (27-31) pg MCHC 34 (32-36) % Plt Count 124 L (150-400) K/uL Neut % (Auto) 48 (36-66) % Lymph % (Auto) 41 (24-44) % [place] % (Auto) 8 H (2-6) % Eos % (Auto) 3 (2-4) % Baso % (Auto) 1 (0-1) % Sodium 140 (140-148) mmol/L Potassium 4.0 (3.6-5.2) mmol/L Chloride 107 (100-108) mmol/L Carbon Dioxide 20 L (21-32) mmol/L Anion Gap 17.0 H (5.0-14.0) mmol/L BUN 20 H (7-18) mg/dL Creatinine 0.8 (0.6-1.0) mg/dL Est Cr Clr Drug Dosing 69.50 mL/min Estimated GFR (MDRD) > 60 (>60) Glucose 71 L (74-106) mg/dL Lactic Acid 2.0 (0.4-2.0) mmol/L Calcium 8.8 (8.5-10.1) mg/dL Total Bilirubin 0.9 (0.2-1.0) mg/dL AST 51 H (15-37) U/L ALT 52 (12-78) U/L Alkaline Phosphatase 118 H (46-116) U/L Troponin I < 0.017 (0.000-0.056) ng/mL Total Protein 6.6 (6.4-8.2) g/dL Albumin 3.4 (3.4-5.0) g/dL Globulin 3.2 (2.3-3.5) g/dL Albumin/Globulin Ratio 1.1 L (1.2-2.2) Lipase 188 (73-393) U/L Urine Color (YELLOW) Urine Appearance (CLEAR) Urine pH (5.0-8.0) Ur Specific [place] (1.008-1.030) Urine Protein (NEGATIVE) mg/dL Urine Glucose (UA) (NEGATIVE) mg/dL Urine Ketones (NEGATIVE) mg/dL Urine Occult Blood (NEGATIVE) Urine Nitrite (NEGATIVE) Urine Bilirubin (NEGATIVE) Urine Urobilinogen (0.2-1.0) EU/dL Ur Leukocyte Esterase (NEGATIVE) Urine RBC (0-5) Urine WBC (0-5) Ur Epithelial Cells Amorphous Sediment Urine Bacteria Urine Mucus Urine Opiates Screen (NEGATIVE) Ur Oxycodone Screen (NEGATIVE) Urine Methadone Screen (NEGATIVE) Ur Propoxyphene Screen (NEGATIVE) Ur Barbiturates Screen (NEGATIVE) Ur Tricyclics Screen (NEGATIVE) Ur Phencyclidine Scrn (NEGATIVE) Ur Amphetamine Screen (NEGATIVE) U Methamphetamines Scrn (NEGATIVE) Urine MDMA Screen (NEGATIVE) U Benzodiazepines Scrn (NEGATIVE) U Cocaine Metab Screen (NEGATIVE) U Marijuana (THC) Screen (NEGATIVE) Ethyl Alcohol mg/dL 02/01/20 02/01/20 02/01/20 Range/Units 05:52 06:02 06:02 WBC (4.5-11.0) K/uL RBC (3.30-5.50) M/uL Hgb (12.0-15.0) g/dL Hct (36.0-48.0) % MCV (80-98) fL MCH (27-31) pg MCHC (32-36) % Plt Count (150-400) K/uL Neut % (Auto) (36-66) % Lymph % (Auto) (24-44) % [place] % (Auto) (2-6) % Eos % (Auto) (2-4) % Baso % (Auto) (0-1) % Sodium (140-148) mmol/L Potassium (3.6-5.2) mmol/L Chloride (100-108) mmol/L Carbon Dioxide (21-32) mmol/L Anion Gap (5.0-14.0) mmol/L BUN (7-18) mg/dL Creatinine (0.6-1.0) mg/dL Est Cr Clr Drug Dosing mL/min Estimated GFR (MDRD) (>60) Glucose (74-106) mg/dL Lactic Acid (0.4-2.0) mmol/L Calcium (8.5-10.1) mg/dL Total Bilirubin (0.2-1.0) mg/dL AST (15-37) U/L ALT (12-78) U/L Alkaline Phosphatase (46-116) U/L Troponin I (0.000-0.056) ng/mL Total Protein (6.4-8.2) g/dL Albumin (3.4-5.0) g/dL Globulin (2.3-3.5) g/dL Albumin/Globulin Ratio (1.2-2.2) Lipase (73-393) U/L Urine Color Yellow (YELLOW) Urine Appearance Clear (CLEAR) Urine pH 6.0 (5.0-8.0) Ur Specific [place] >= 1.030 (1.008-1.030) Urine Protein 100 H (NEGATIVE) mg/dL Urine Glucose (UA) Negative (NEGATIVE) mg/dL Urine Ketones 15 H (NEGATIVE) mg/dL Urine Occult Blood Moderate H (NEGATIVE) Urine Nitrite Negative (NEGATIVE) Urine Bilirubin Negative (NEGATIVE) Urine Urobilinogen 0.2 (0.2-1.0) EU/dL Ur Leukocyte Esterase Negative (NEGATIVE) Urine RBC 10-20 H (0-5) Urine WBC 0-5 (0-5) Ur Epithelial Cells Few Amorphous Sediment Not seen Urine Bacteria Rare Urine Mucus Moderate Urine Opiates Screen Negative (NEGATIVE) Ur Oxycodone Screen Negative (NEGATIVE) Urine Methadone Screen Negative (NEGATIVE) Ur Propoxyphene Screen Negative (NEGATIVE) Ur Barbiturates Screen Negative (NEGATIVE) Ur Tricyclics Screen Negative (NEGATIVE) Ur Phencyclidine Scrn Negative (NEGATIVE) Ur Amphetamine Screen Presumptive positive H (NEGATIVE) U Methamphetamines Scrn Presumptive positive H (NEGATIVE) Urine MDMA Screen Negative (NEGATIVE) U Benzodiazepines Scrn Presumptive positive H (NEGATIVE) U Cocaine Metab Screen Negative (NEGATIVE) U Marijuana (THC) Screen Negative (NEGATIVE) Ethyl Alcohol 84 mg/dL - Re-Assessments/Exams Free Text/Narrative Re-Assessment/Exam: 02/01/20 06:27 After a period of time she admits she is not having chest pain she is having back pain and she is out of her oxycodone which she can refill today, she has become much more communicative while in the emergency department she also states that she is going to follow-up with her therapist Departure - Departure Time of Disposition: 06:29 Disposition: Home, Self-Care 01 Condition: Poor Clinical Impression: Bulging of intervertebral disc between L4 and L5 Alcohol intoxication Qualifiers: Complication of substance-induced condition: uncomplicated Qualified Code(s): F10.920 - Alcohol use, unspecified with intoxication, uncomplicated Chronic pain Qualifiers: Chronic pain type: chronic pain syndrome Qualified Code(s): G89.4 - Chronic pain syndrome Instructions: Pain Medicine Instructions Referrals: PCP,None [Primary Care Provider] - Forms: ED Department Discharge Additional Instructions: Continue with your regular medications please follow-up with your therapist, call or return to the emergency department worsening of symptoms Sepsis Event Note - Evaluation Sepsis Screening Result: No Definite Risk - Focused Exam Vital Signs: Vital Signs Temp Pulse Resp BP Pulse Ox 02/01/20 05:28 97.7 F 100 17 127/71 96 02/01/20 05:25 97.7 F 100 17 127/71 96 Date Exam was Performed: 02/01/20 Time Exam was Performed: 06:27 - My Orders Last 24 Hours: My Active Orders 02/01/20 05:42 Cardiac Monitoring [RC] .As Directed Chest 1V Frontal [CR] Stat 02/01/20 06:22 CULTURE URINE [RM] Urgent 02/01/20 06:26 fentaNYL [Sublimaze] 50 mcg IM ONETIME ONE - Assessment/Plan Last 24 Hours: My Active Orders 02/01/20 05:42 Cardiac Monitoring [RC] .As Directed Chest 1V Frontal [CR] Stat 02/01/20 06:22 CULTURE URINE [RM] Urgent 02/01/20 06:26 fentaNYL [Sublimaze] 50 mcg IM ONETIME ONE Plan: Assessment Acuity = acute on chronic Site and laterality = back pain Etiology = bulging disks currently of her chronic pain medication Manifestations = none Location of injury = Home Lab values = CBC CMP unremarkable urinalysis reveals 10-20 RBCs consistent with hematuria urinalysis positive for methamphetamine and alcohol at 84 Plan She is provided 50 mcg of fentanyl while in the emergency department she is discharged home she will follow-up with her therapist today and refill her prescription for oxycodone This note was dictated using [employer] voice recognition software please call with any questions on syntax or grammar.
[2020-02-01] MEDS ORDERED: fentaNYL 100 MCG/2 ML SDV IM ONE (06:26)
--- NOTE | 2020-02-01 06:53 | CRLCR ---
Indication: Chest pain. Vomiting Technique: Chest 1 view Comparison: 01/28/2020 Findings/Impression: Cardiovascular and mediastinum: Normal cardiac size. Sternotomy sutures again seen. Lungs and pleural space: Lungs are clear. No sign of infiltrate or mass. No sign of pleural effusion. No pneumothorax. Bones and soft tissues: Metallic coils again seen in the upper abdomen. Stable osseous structures. Dictated by Cory Luna MD @ 02/01/2020 6:51:01 AM Dictated by: Cory Luna MD @ 02/01/2020 06:51:05 (Electronically Signed)
== END 2020-02-01 06:47 | disposition home or self-care (01) ==
LOC: JP.ED 05:22
DX: F10.920 Alcohol use, unspecified with intoxication, uncomplicated (principal); M51.26 Other intervertebral disc displacement, lumbar region; G89.4 Chronic pain syndrome; F17.210 Nicotine dependence, cigarettes, uncomplicated; I25.10 Atherosclerotic heart disease of native coronary artery without angina pectoris; I25.2 Old myocardial infarction; J45.909 Unspecified asthma, uncomplicated; K21.9 Gastro-esophageal reflux disease without esophagitis; F41.9 Anxiety disorder, unspecified; F32.9 Major depressive disorder, single episode, unspecified; Z86.73 Personal history of transient ischemic attack (TIA), and cerebral infarction without residual deficits; Z79.899 Other long term (current) drug therapy; Z91.018 Allergy to other foods; Z88.8 Allergy status to other drugs, medicaments and biological substances; Z91.013 Allergy to seafood
CPT/HCPCS: 36415; 71045; 80053; 80305; 80307; 81001; 83605; 83690; 84484; 85025; 87086; 87088; 87186; 96372; 99285; J3010

== ENCOUNTER 2020-02-03 21:15 | Emergency (ER) | payer MEDICAID ==
--- NOTE | 2020-02-03 21:52 | EDM.PDOCBH ---
ED HPI GENERAL MEDICAL PROBLEM - General Chief Complaint: Drug or Alcohol Abuse Stated Complaint: MEDICAL VIA NORTH Time Seen by Provider: 02/03/20 21:51 Source of Information: Reports: Patient History Limitations: Reports: No Limitations - History of Present Illness INITIAL COMMENTS - FREE TEXT/NARRATIVE: pt arrived stating that she fell out of bed and hit her back. She has a long history of lumbar disc disease. She is chronicly in pain. She was recently in [place] because of suicidal ideation. Onset: Today, Sudden Duration: Hour(s):, Other (pt states she fell out of bed. ) Location: Reports: Back Associated Symptoms: Reports: No Other Symptoms headache Pain Score (Numeric/FACES): 8 back pain Pain Score (Numeric/FACES): 8 - Related Data Allergies Allergy/AdvReac Type Severity Reaction Status Date / Time Fish Containing Products Allergy Severe Airway Verified 02/03/20 21:29 Tightness ziprasidone [From Geodon] Allergy Severe Airway Verified 02/03/20 21:29 Tightness tree nut Allergy Hives Verified 02/03/20 21:29 lamotrigine [From Lamictal] AdvReac Leg Cramps Verified 02/03/20 21:29 msg Allergy Hives Uncoded 02/03/20 21:29 Home Meds: Home Meds Cyanocobalamin (Vitamin B-12) [B-12] 250 mcg PO DAILY 07/29/17 [History] Gabapentin [Neurontin] 200 mg PO BID 07/29/17 [History] Lactulose 30 ml PO TID 07/29/17 [History] levETIRAcetam [Keppra] 500 mg PO BID 07/29/17 [History] Omeprazole 20 mg PO BID 10/19/17 [History] Cholecalciferol (Vitamin D3) [Vitamin D3] 1 tab PO DAILY 09/16/19 [History] Folic Acid 1 mg PO DAILY 09/16/19 [History] Magnesium 400 mg PO DAILY 09/16/19 [History] Albuterol Sulfate [Proventil Hfa] 6.7 gm IH Q4H 09/29/19 [History] Albuterol [Proventil Neb Soln] 2.5 mg INH Q4H PRN 09/29/19 [History] Ferrous Gluconate 324 mg PO DAILY 09/29/19 [History] Furosemide 40 mg PO DAILY 09/29/19 [History] Lidocaine/Kinesiology Tape [Lidopure Patch 5% Combo Pack] 1 each TP DAILY [History] Methyl Salicylate/Menthol [Salonpas Patch] 1 each TP Q24H 09/29/19 [History] Multivit with Minerals No.55 [Centrum Flavor Burst Adult] 1 tab PO DAILY [History] Nitroglycerin [Nitrostat] 0.4 mg SL ASDIRECTED PRN 09/29/19 [History] Ondansetron [Zofran ODT] 1 tab PO Q8H PRN 09/29/19 [History] Rifaximin [Xifaxan] 550 mg PO BID 09/29/19 [History] Spironolactone [Aldactone] 100 mg PO DAILY 09/29/19 [History] Thiamine [Vitamin B-1] 1 tab PO DAILY 09/29/19 [History] hydrOXYzine HCL [Hydroxyzine HCl] 100 mg PO QID PRN 09/29/19 [History] oxyCODONE 5 mg PO Q6H PRN 09/29/19 [History] Meclizine [Antivert] 12.5 mg PO TID 11/28/19 [History] Past Medical History HEENT History: Reports: Hard of Hearing, Impaired Vision Cardiovascular History: Reports: CAD, [place], Other (See Below) Other Cardiovascular History: portal hypertension Respiratory History: Reports: Asthma Gastrointestinal History: Reports: Cirrhosis, GERD, Other (See Below) Other Gastrointestinal History: ascites, liver disease, cholecystitis, hepatic encephalopathy, stent placed in liver Genitourinary History: Reports: Renal Calculus, Other (See Below) Other Genitourinary History: urethral stent placed that extends to kidney 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: , Spontaneous , Other (See Below) Other SUPERVISOR TRUST ACCOUNTS History: Irregular [place] Musculoskeletal History: Reports: Back Pain, Chronic, Fracture, Other (See Below ) Other Musculoskeletal History: colar bone, Neurological History: Reports: Brain Injury, CVA, Head Trauma, Seizure, Vertigo , Other (See Below) Other Neuro History: TBI ICH Skull defect Psychiatric History: Reports: Anxiety, Depression, Psych Hospitalization(s), Suicide Attempt Hematologic History: Reports: Blood Transfusion(s), Iron Deficiency, Other (See Below) Other Hematologic History: Hypokelemia, hypomagnesemia, hyponatremia Oncologic (Cancer) History: Reports: Cervix - Infectious Disease History Infectious Disease History: Reports: C-Difficile, Chicken Pox - Past Surgical History Head Surgeries/Procedures: Reports: None HEENT Surgical History: Reports: Adenoidectomy, Tonsillectomy Cardiovascular Surgical History: Reports: Coronary Artery Bypass Respiratory Surgical History: Reports: None GI Surgical History: Reports: Appendectomy, Cholecystectomy Female Surgical History: Reports: Cystectomy, Other (See Below) Other Female Surgeries/Procedures: removal of abscess from left breast Neurological Surgical History: Reports: None Musculoskeletal Surgical History: Reports: None, Carpal Tunnel Oncologic Surgical History: Reports: None Dermatological Surgical History: Reports: None Social & Family History - Family History Family Medical History: Noncontributory - Caffeine Use Caffeine Use: Reports: Coffee Caffeine Use Comment: 2 cups of coffee per day; 3 diet pops per day - Living Situation & Occupation Living situation: Reports: Single Occupation: Disabled (lives in Apartment, Sister and Uncle live in same building.) ED ROS GENERAL - Review of Systems Review Of Systems: See Below Constitutional: Reports: No Symptoms HEENT: Reports: No Symptoms Respiratory: Reports: No Symptoms Cardiovascular: Reports: No Symptoms Endocrine: Reports: No Symptoms GI/Abdominal: Reports: No Symptoms : Reports: No Symptoms Musculoskeletal: Reports: Other (pt is having chronic pain in her back. She does not feel this is different tonight. ) Skin: Reports: No Symptoms ED EXAM, BEHAVIORAL HEALTH - Physical Exam Exam: See Below Text/Narrative:: pt arrived intoxicated and stating her back is hurting, There evidently is a problem with her pain contract. Exam Limited By: No Limitations General Appearance: Alert, Anxious, Moderate Distress, Other (pt was given torodol and did get good relief. She is seeing Dr silva regarding her pain contract. ) Ears: Normal TMs Nose: Normal Inspection Throat/Mouth: Normal Inspection Head: Atraumatic Neck: Normal Inspection Respiratory/Chest: No Respiratory Distress Cardiovascular: Regular Rate, Rhythm GI/Abdominal: Soft, Non-Tender (Female) Exam: Deferred Rectal (Female) Exam: Deferred Back Exam: Other ( tender over the lower back no signs of injury or bruising. ) COURSE, BEHAVIORAL HEALTH COMP - Course Vital Signs: Last Vital Signs Temp 35.8 C L 02/03/20 21:52 Pulse 88 05/19/20 21:52 Resp 15 02/03/20 21:52 BP 122/76 02/03/20 21:52 Pulse Ox 94 L 02/03/20 21:52 Orders, Labs, Meds: Active Orders 24 hr Category Date Time Status Lumbar Spine Min 4V [CR] Stat Exams 02/03/20 22:40 Stop Req Laboratory Tests 02/03/20 02/03/20 02/03/20 Range/Units 21:52 22:00 22:00 WBC 7.7 (4.5-11.0) K/uL RBC 3.83 (3.30-5.50) M/uL Hgb 12.1 (12.0-15.0) g/dL Hct 35.6 L (36.0-48.0) % MCV 93 (80-98) fL MCH 32 H (27-31) pg MCHC 34 (32-36) % Plt Count 105 L (150-400) K/uL Neut % (Auto) 31 L (36-66) % Lymph % (Auto) 57 H (24-44) % Bay % (Auto) 8 H (2-6) % Eos % (Auto) 3 (2-4) % Baso % (Auto) 1 (0-1) % Sodium 146 (140-148) mmol/L Potassium 4.2 (3.6-5.2) mmol/L Chloride 110 H (100-108) mmol/L Carbon Dioxide 27 (21-32) mmol/L Anion Gap 13.2 (5.0-14.0) mmol/L BUN 12 (7-18) mg/dL Creatinine 0.9 (0.6-1.0) mg/dL Est Cr Clr Drug Dosing 61.77 mL/min Estimated GFR (MDRD) > 60 (>60) Glucose 88 (74-106) mg/dL Calcium 8.6 (8.5-10.1) mg/dL Urine Opiates Screen Negative (NEGATIVE) Ur Oxycodone Screen Negative (NEGATIVE) Urine Methadone Screen Negative (NEGATIVE) Ur Propoxyphene Screen Negative (NEGATIVE) Ur Barbiturates Screen Negative (NEGATIVE) Ur Tricyclics Screen Negative (NEGATIVE) Ur Phencyclidine Scrn Negative (NEGATIVE) Ur Amphetamine Screen Negative (NEGATIVE) U Methamphetamines Scrn Negative (NEGATIVE) Urine MDMA Screen Negative (NEGATIVE) U Benzodiazepines Scrn Negative (NEGATIVE) U Cocaine Metab Screen Negative (NEGATIVE) U Marijuana (THC) Screen Negative (NEGATIVE) Ethyl Alcohol mg/dL 02/03/20 Range/Units 22:00 WBC (4.5-11.0) K/uL RBC (3.30-5.50) M/uL Hgb (12.0-15.0) g/dL Hct (36.0-48.0) % MCV (80-98) fL MCH (27-31) pg MCHC (32-36) % Plt Count (150-400) K/uL Neut % (Auto) (36-66) % Lymph % (Auto) (24-44) % Bay % (Auto) (2-6) % Eos % (Auto) (2-4) % Baso % (Auto) (0-1) % Sodium (140-148) mmol/L Potassium (3.6-5.2) mmol/L Chloride (100-108) mmol/L Carbon Dioxide (21-32) mmol/L Anion Gap (5.0-14.0) mmol/L BUN (7-18) mg/dL Creatinine (0.6-1.0) mg/dL Est Cr Clr Drug Dosing mL/min Estimated GFR (MDRD) (>60) Glucose (74-106) mg/dL Calcium (8.5-10.1) mg/dL Urine Opiates Screen (NEGATIVE) Ur Oxycodone Screen (NEGATIVE) Urine Methadone Screen (NEGATIVE) Ur Propoxyphene Screen (NEGATIVE) Ur Barbiturates Screen (NEGATIVE) Ur Tricyclics Screen (NEGATIVE) Ur Phencyclidine Scrn (NEGATIVE) Ur Amphetamine Screen (NEGATIVE) U Methamphetamines Scrn (NEGATIVE) Urine MDMA Screen (NEGATIVE) U Benzodiazepines Scrn (NEGATIVE) U Cocaine Metab Screen (NEGATIVE) U Marijuana (THC) Screen (NEGATIVE) Ethyl Alcohol 244 mg/dL Medications Discontinued Medications Generic Name Dose Route Start Last Admin Trade Name Freq PRN Reason Stop Dose Admin Baclofen 10 mg 02/03/20 22:29 02/03/20 22:37 Lioresal PO 02/03/20 22:30 10 mg ONETIME ONE Administration Ketorolac Tromethamine 60 mg 02/03/20 22:30 02/03/20 22:36 Toradol IM 02/03/20 22:31 60 mg ONETIME ONE Administration Medical Clearance: 02/03/20 22:56 pt has been coming to the ER nearly daily for pain meds. She states she is on a pain contract and will discuss this further with Dr Silva. She does have a very definite history of severe lumbar disc disease. Cris has wade drinking alot and she is intoxicated when ever she arrives at the [facility]. She was recently evaluated at [facility] and was sent back here to be managed. 02/03/20 23:04 Departure - Departure Time of Disposition: 22:56 Disposition: Home, Self-Care 01 Condition: Fair Clinical Impression: Lumbar back pain, ETOH abuse, Depression - Discharge Information Referrals: PCP,None [Primary Care Provider] - Forms: ED Department Discharge Care Plan Goals: appt with Dr Silva in the next 2-3 days regarding her pain contract and her etoh abuse. Sepsis Event Note - Focused Exam Vital Signs: Vital Signs Temp Pulse Resp BP Pulse Ox 02/03/20 21:52 35.8 C L 88 15 122/76 94 L 02/03/20 21:30 35.8 C L 88 15 122/76 94 L Date Exam was Performed: 02/03/20 Time Exam was Performed: 22:56 - My Orders Last 24 Hours: My Active Orders 02/03/20 22:40 Lumbar Spine Min 4V [CR] Stat - Assessment/Plan Last 24 Hours: My Active Orders 02/03/20 22:40 Lumbar Spine Min 4V [CR] Stat
[2020-02-03] MEDS ORDERED: Baclofen 10 MG Tab PO ONE (22:29)
[2020-02-03] MEDS ORDERED: Ketorolac 60 MG/2 ML SDV IM ONE (22:30)
== END 2020-02-03 23:20 | disposition home or self-care (01) ==
LOC: JP.ED 21:15
DX: M54.5 Low back pain (principal); F10.10 Alcohol abuse, uncomplicated; Y90.8 Blood alcohol level of 240 mg/100 ml or more; I25.10 Atherosclerotic heart disease of native coronary artery without angina pectoris; I25.2 Old myocardial infarction; J45.909 Unspecified asthma, uncomplicated; K21.9 Gastro-esophageal reflux disease without esophagitis; F41.9 Anxiety disorder, unspecified; F32.9 Major depressive disorder, single episode, unspecified; Z91.013 Allergy to seafood; Z86.73 Personal history of transient ischemic attack (TIA), and cerebral infarction without residual deficits; Z91.018 Allergy to other foods; Z88.8 Allergy status to other drugs, medicaments and biological substances; Z79.899 Other long term (current) drug therapy; W06.XXXA Fall from bed, initial encounter
CPT/HCPCS: 36415; 80048; 80305; 80307; 85025; 96372; 99284; A9270; J1885

== ENCOUNTER 2020-02-06 15:24 | Emergency (ER) | payer MEDICAID ==
--- NOTE | 2020-02-06 15:49 | EDM.PDOC ---
ED HPI GENERAL MEDICAL PROBLEM - General Chief Complaint: Drug or Alcohol Abuse Stated Complaint: MEDICAL VIA NORTH Time Seen by Provider: 02/06/20 15:40 Source of Information: Reports: Patient History Limitations: Reports: Intoxication - History of Present Illness INITIAL COMMENTS - FREE TEXT/NARRATIVE: Attempt to speak with patient and completed assessment. She denies, states she is just going to go home. Patient refused vital signs and nursing assessment. Patient to bathroom. Patient exited the emergency room AMA per herself without care. - Related Data Allergies Allergy/AdvReac Type Severity Reaction Status Date / Time Fish Containing Products Allergy Severe Airway Verified 02/03/20 21:29 Tightness ziprasidone [From Geodon] Allergy Severe Airway Verified 02/03/20 21:29 Tightness tree nut Allergy Hives Verified 02/03/20 21:29 lamotrigine [From Lamictal] AdvReac Leg Cramps Verified 02/03/20 21:29 msg Allergy Hives Uncoded 02/03/20 21:29 Home Meds: Home Meds Cyanocobalamin (Vitamin B-12) [B-12] 250 mcg PO DAILY 07/29/17 [History] Gabapentin [Neurontin] 200 mg PO BID 07/29/17 [History] Lactulose 30 ml PO TID 07/29/17 [History] levETIRAcetam [Keppra] 500 mg PO BID 07/29/17 [History] Omeprazole 20 mg PO BID 10/19/17 [History] Cholecalciferol (Vitamin D3) [Vitamin D3] 1 tab PO DAILY 09/16/19 [History] Folic Acid 1 mg PO DAILY 09/16/19 [History] Magnesium 400 mg PO DAILY 09/16/19 [History] Albuterol Sulfate [Proventil Hfa] 6.7 gm IH Q4H 09/29/19 [History] Albuterol [Proventil Neb Soln] 2.5 mg INH Q4H PRN 09/29/19 [History] Ferrous Gluconate 324 mg PO DAILY 09/29/19 [History] Furosemide 40 mg PO DAILY 09/29/19 [History] Lidocaine/Kinesiology Tape [Lidopure Patch 5% Combo Pack] 1 each TP DAILY [History] Methyl Salicylate/Menthol [Salonpas Patch] 1 each TP Q24H 09/29/19 [History] Multivit with Minerals No.55 [Centrum Flavor Burst Adult] 1 tab PO DAILY [History] Nitroglycerin [Nitrostat] 0.4 mg SL ASDIRECTED PRN 09/29/19 [History] Ondansetron [Zofran ODT] 1 tab PO Q8H PRN 09/29/19 [History] Rifaximin [Xifaxan] 550 mg PO BID 09/29/19 [History] Spironolactone [Aldactone] 100 mg PO DAILY 09/29/19 [History] Thiamine [Vitamin B-1] 1 tab PO DAILY 09/29/19 [History] hydrOXYzine HCL [Hydroxyzine HCl] 100 mg PO QID PRN 09/29/19 [History] oxyCODONE 5 mg PO Q6H PRN 09/29/19 [History] Meclizine [Antivert] 12.5 mg PO TID 11/28/19 [History] Past Medical History HEENT History: Reports: Hard of Hearing, Impaired Vision Cardiovascular History: Reports: CAD, [place], Other (See Below) Other Cardiovascular History: portal hypertension Respiratory History: Reports: Asthma Gastrointestinal History: Reports: Cirrhosis, GERD, Other (See Below) Other Gastrointestinal History: ascites, liver disease, cholecystitis, hepatic encephalopathy, stent placed in liver Genitourinary History: Reports: Renal Calculus, Other (See Below) Other Genitourinary History: urethral stent placed that extends to kidney 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: , Spontaneous , Other (See Below) Other MEDIA MARKETING DIRECTOR History: Irregular [place] Musculoskeletal History: Reports: Back Pain, Chronic, Fracture, Other (See Below ) Other Musculoskeletal History: colar bone, Neurological History: Reports: Brain Injury, CVA, Head Trauma, Seizure, Vertigo , Other (See Below) Other Neuro History: TBI ICH Skull defect Psychiatric History: Reports: Addiction, Anxiety, Depression, Psych Hospitalization(s), Suicide Attempt Hematologic History: Reports: Blood Transfusion(s), Iron Deficiency, Other (See Below) Other Hematologic History: Hypokelemia, hypomagnesemia, hyponatremia Oncologic (Cancer) History: Reports: Cervix - Infectious Disease History Infectious Disease History: Reports: C-Difficile, Chicken Pox - Past Surgical History Head Surgeries/Procedures: Reports: None HEENT Surgical History: Reports: Adenoidectomy, Tonsillectomy Cardiovascular Surgical History: Reports: Coronary Artery Bypass Respiratory Surgical History: Reports: None GI Surgical History: Reports: Appendectomy, Cholecystectomy Female Surgical History: Reports: Cystectomy, Other (See Below) Other Female Surgeries/Procedures: removal of abscess from left breast Neurological Surgical History: Reports: None Musculoskeletal Surgical History: Reports: None, Carpal Tunnel Oncologic Surgical History: Reports: None Social & Family History - Family History Family Medical History: Noncontributory - Caffeine Use Caffeine Use: Reports: Coffee Caffeine Use Comment: 2 cups of coffee per day; 3 diet pops per day - Living Situation & Occupation Living situation: Reports: Single Occupation: Disabled (lives in Apartment, Sister and Uncle live in same building.) ED ROS GENERAL - Review of Systems Review Of Systems: Unable To Obtain Reason Not Obtained: Patient left AMA ED EXAM, GENERAL - Physical Exam Exam: See Below Reason Not Obtained: Patient left AMA Departure - Departure Time of Disposition: 16:07 Disposition: Against Medical Advice 07 Clinical Impression: Left against medical advice - Discharge Information Referrals: PCP,None [Primary Care Provider] - Forms: ED Department Discharge Sepsis Event Note - Focused Exam Date Exam was Performed: 02/06/20 Time Exam was Performed: 16:33
== END 2020-02-06 16:07 | disposition left against medical advice (07) ==
LOC: JP.ED 15:24
DX: Z53.20 Procedure and treatment not carried out because of patient's decision for unspecified reasons (principal)

== ENCOUNTER 2020-02-10 12:48 | Emergency (ER) | payer MEDICAID | END 2020-02-10 13:15 | disposition left against medical advice (07) | LOC: JP.ED 12:48 | DX: Z53.21 Procedure and treatment not carried out due to patient leaving prior to being seen by health care provider (principal) ==

== ENCOUNTER 2020-02-10 22:44 | Emergency (ER) | payer MEDICAID ==
[2020-02-10] MEDS ORDERED: Sodium Chloride 0.9% 10 ML Syringe FLUSH PRN (23:11)
[2020-02-10] MEDS ORDERED: Ondansetron 4 MG/2 ML SDV IVPUSH ONE (23:13)
[2020-02-10] MEDS ORDERED: fentaNYL 100 MCG/2 ML SDV IVPUSH ONE (23:13)
[2020-02-10] MEDS ORDERED: cefTRIAXone 1 GM in Sodium Chloride 0.9% 50 ML IV ONE (23:14)
[2020-02-10] MEDS ORDERED: Sodium Chloride 0.9% 1,000 ML IV SCH (23:15)
[2020-02-10] MEDS ORDERED: Lactated Ringers 1,000 ML IV SCH (23:15)
--- NOTE | 2020-02-10 23:17 | EDM.PDOC ---
ED HPI GENERAL MEDICAL PROBLEM - General Chief Complaint: Abdominal Pain Stated Complaint: [facility] Time Seen by Provider: 02/10/20 23:04 Source of Information: Reports: Patient, EMS, Old Records, RN Notes Reviewed History Limitations: Reports: No Limitations - History of Present Illness INITIAL COMMENTS - FREE TEXT/NARRATIVE: 44-year-old female presents emergency department today via EMS services complaint of abdominal pain, she states abdominal pain started today is mainly epigastric region she states it wax and wanes she was recently diagnosed with urinary tract infection urine culture did grow out E. coli she has not started any antibiotics at this time. This is her sixth visit to the emergency department this month LUQ Pain Score (Numeric/FACES): 4 - Related Data Allergies Allergy/AdvReac Type Severity Reaction Status Date / Time Fish Containing Products Allergy Severe Airway Verified 02/10/20 22:53 Tightness ziprasidone [From Geodon] Allergy Severe Airway Verified 02/10/20 22:53 Tightness tree nut Allergy Hives Verified 02/10/20 22:53 lamotrigine [From Lamictal] AdvReac Leg Cramps Verified 02/10/20 22:53 msg Allergy Hives Uncoded 02/10/20 22:53 Home Meds: Home Meds Cyanocobalamin (Vitamin B-12) [B-12] 250 mcg PO DAILY 07/29/17 [History] Gabapentin [Neurontin] 200 mg PO BID 07/29/17 [History] Lactulose 30 ml PO TID 07/29/17 [History] levETIRAcetam [Keppra] 500 mg PO BID 07/29/17 [History] Omeprazole 20 mg PO BID 10/19/17 [History] Cholecalciferol (Vitamin D3) [Vitamin D3] 1 tab PO DAILY 09/16/19 [History] Folic Acid 1 mg PO DAILY 09/16/19 [History] Magnesium 400 mg PO DAILY 09/16/19 [History] Albuterol Sulfate [Proventil Hfa] 6.7 gm IH Q4H 09/29/19 [History] Albuterol [Proventil Neb Soln] 2.5 mg INH Q4H PRN 09/29/19 [History] Ferrous Gluconate 324 mg PO DAILY 09/29/19 [History] Furosemide 40 mg PO DAILY 09/29/19 [History] Lidocaine/Kinesiology Tape [Lidopure Patch 5% Combo Pack] 1 each TP DAILY [History] Methyl Salicylate/Menthol [Salonpas Patch] 1 each TP Q24H 09/29/19 [History] Multivit with Minerals No.55 [Centrum Flavor Burst Adult] 1 tab PO DAILY [History] Nitroglycerin [Nitrostat] 0.4 mg SL ASDIRECTED PRN 09/29/19 [History] Ondansetron [Zofran ODT] 1 tab PO Q8H PRN 09/29/19 [History] Rifaximin [Xifaxan] 550 mg PO BID 09/29/19 [History] Spironolactone [Aldactone] 100 mg PO DAILY 09/29/19 [History] Thiamine [Vitamin B-1] 1 tab PO DAILY 09/29/19 [History] hydrOXYzine HCL [Hydroxyzine HCl] 100 mg PO QID PRN 09/29/19 [History] oxyCODONE 5 mg PO Q6H PRN 09/29/19 [History] Meclizine [Antivert] 12.5 mg PO TID 11/28/19 [History] Past Medical History HEENT History: Reports: Hard of Hearing, Impaired Vision Cardiovascular History: Reports: CAD, [place], Other (See Below) Other Cardiovascular History: portal hypertension Respiratory History: Reports: Asthma Gastrointestinal History: Reports: Cirrhosis, GERD, Other (See Below) Other Gastrointestinal History: ascites, liver disease, cholecystitis, hepatic encephalopathy, stent placed in liver Genitourinary History: Reports: Renal Calculus, Other (See Below) Other Genitourinary History: urethral stent placed that extends to kidney GAME MASTER History: Reports: , Spontaneous , Other (See Below) Other GAME MASTER History: Irregular [place] Musculoskeletal History: Reports: Back Pain, Chronic, Fracture, Other (See Below ) Other Musculoskeletal History: colar bone, Neurological History: Reports: Brain Injury, CVA, Head Trauma, Seizure, Vertigo , Other (See Below) Other Neuro History: TBI ICH Skull defect Psychiatric History: Reports: Addiction, Anxiety, Depression, Psych Hospitalization(s), Suicide Attempt Hematologic History: Reports: Blood Transfusion(s), Iron Deficiency, Other (See Below) Other Hematologic History: Hypokelemia, hypomagnesemia, hyponatremia Oncologic (Cancer) History: Reports: Cervix - Infectious Disease History Infectious Disease History: Reports: C-Difficile, Chicken Pox - Past Surgical History Head Surgeries/Procedures: Reports: None HEENT Surgical History: Reports: Adenoidectomy, Tonsillectomy Cardiovascular Surgical History: Reports: Coronary Artery Bypass Respiratory Surgical History: Reports: None GI Surgical History: Reports: Appendectomy, Cholecystectomy Female Surgical History: Reports: Cystectomy, Other (See Below) Other Female Surgeries/Procedures: removal of abscess from left breast Neurological Surgical History: Reports: None Musculoskeletal Surgical History: Reports: None, Carpal Tunnel Oncologic Surgical History: Reports: None Dermatological Surgical History: Reports: None Social & Family History - Family History Family Medical History: Noncontributory - Tobacco Use Smoking Status *Q: Current Every Day Smoker Years of Tobacco use: 25 Packs/Tins Daily: 1 - Caffeine Use Caffeine Use: Reports: Coffee Caffeine Use Comment: 2 cups of coffee per day; 3 diet pops per day - Recreational Drug Use Recreational Drug Use: No - Living Situation & Occupation Living situation: Reports: Single Occupation: Disabled (lives in Apartment, Sister and Uncle live in same building.) ED ROS GENERAL - Review of Systems Review Of Systems: See Below Constitutional: Reports: No Symptoms HEENT: Reports: No Symptoms Respiratory: Reports: No Symptoms Cardiovascular: Reports: No Symptoms GI/Abdominal: Reports: Abdominal Pain, Nausea. Denies: Vomiting : Reports: Dysuria Musculoskeletal: Reports: No Symptoms Skin: Reports: No Symptoms ED EXAM, GI/ABD - Physical Exam Exam: See Below Exam Limited By: No Limitations General Appearance: Alert, WD/WN, No Apparent Distress Respiratory/Chest: No Respiratory Distress, Lungs Clear, Normal Breath Sounds, No Accessory Muscle Use, Chest Non-Tender Cardiovascular: Regular Rate, Rhythm, No Murmur GI/Abdominal Exam: Soft, Tender (Epigastric region) Course - Vital Signs Last Recorded V/S: Last Vital Signs Temp 98.3 F 02/10/20 22:50 Pulse 84 02/10/20 22:50 Resp 16 02/10/20 22:50 BP 143/76 H 02/10/20 22:50 Pulse Ox 96 02/10/20 22:50 - Orders/Labs/Meds Orders: Active Orders 24 hr Category Date Time Status Peripheral IV Care [RC] . DIRECTED Care 02/10/20 23:12 Active Sodium Chloride 0.9% [Normal Saline] 1,000 ml Med 02/10/20 23:15 Active IV ASDIRECTED Sodium Chloride 0.9% [Saline Flush] Med 02/10/20 23:11 Active 10 ml FLUSH ASDIRECTED PRN Peripheral IV Insertion Adult [OM.PC] Urgent Oth 02/10/20 23:11 Ordered Medication Orders Sodium Chloride (Normal Saline) 1,000 mls @ 500 mls/hr IV ASDIRECTED JOSE Last Admin: 02/10/20 23:37 Dose: 500 mls/hr Sodium Chloride (Saline Flush) 10 ml FLUSH ASDIRECTED PRN PRN Reason: Keep Vein Open Labs: Laboratory Tests 02/10/20 02/10/20 02/10/20 Range/Units 23:29 23:29 23:29 WBC 5.4 (4.5-11.0) K/uL RBC 4.01 (3.30-5.50) M/uL Hgb 12.6 (12.0-15.0) g/dL Hct 37.7 (36.0-48.0) % MCV 94 (80-98) fL MCH 31 (27-31) pg MCHC 33 (32-36) % Plt Count 112 L (150-400) K/uL Neut % (Auto) 30 L (36-66) % Lymph % (Auto) 57 H (24-44) % Cook % (Auto) 9 H (2-6) % Eos % (Auto) 4 (2-4) % Baso % (Auto) 0 (0-1) % Sodium 143 (140-148) mmol/L Potassium 4.0 (3.6-5.2) mmol/L Chloride 108 (100-108) mmol/L Carbon Dioxide 25 (21-32) mmol/L Anion Gap 10.1 (5.0-14.0) mmol/L BUN 7 (7-18) mg/dL Creatinine 0.6 (0.6-1.0) mg/dL Est Cr Clr Drug Dosing 92.66 mL/min Estimated GFR (MDRD) > 60 (>60) Glucose 100 (74-106) mg/dL Lactic Acid 1.2 (0.4-2.0) mmol/L Calcium 8.1 L (8.5-10.1) mg/dL Total Bilirubin 0.6 (0.2-1.0) mg/dL AST 61 H (15-37) U/L ALT 58 (12-78) U/L Alkaline Phosphatase 159 H (46-116) U/L Troponin I < 0.017 (0.000-0.056) ng/mL Total Protein 6.5 (6.4-8.2) g/dL Albumin 2.9 L (3.4-5.0) g/dL Globulin 3.6 H (2.3-3.5) g/dL Albumin/Globulin Ratio 0.8 L (1.2-2.2) Lipase 310 (73-393) U/L Meds: Medications Generic Name Dose Route Start Last Admin Trade Name Freq PRN Reason Stop Dose Admin Sodium Chloride 1,000 mls @ 500 mls/hr 02/10/20 23:15 02/10/20 23:37 Normal Saline IV 500 mls/hr ASDIRECTED JOSE Administration Sodium Chloride 10 ml 02/10/20 23:11 Saline Flush FLUSH ASDIRECTED PRN Keep Vein Open Discontinued Medications Generic Name Dose Route Start Last Admin Trade Name Freq PRN Reason Stop Dose Admin Fentanyl 50 mcg 02/10/20 23:13 02/10/20 23:30 Sublimaze IVPUSH 02/10/20 23:14 50 mcg ONETIME ONE Administration Lactated Ringer's 1,000 mls @ 999 mls/hr 02/10/20 23:15 Ringers, Lactated IV ASDIRECTED JOSE Ceftriaxone Sodium 1 gm/ 50 mls @ 100 mls/hr 02/10/20 23:14 02/10/20 23:31 Sodium Chloride IV 02/10/20 23:43 100 mls/hr ONETIME ONE Administration Sodium Chloride 70 mls @ 3 mls/sec 02/10/20 23:29 02/10/20 23:41 Normal Saline IV 02/10/20 23:30 3 mls/sec ASDIRECTED STA Administration Iopamidol 100 ml 02/10/20 23:29 02/10/20 23:41 Isovue-300 (61%) IV 02/10/20 23:30 100 ml . DIRECTED STA Administration Ondansetron HCl 4 mg 02/10/20 23:13 02/10/20 23:30 Zofran IVPUSH 02/10/20 23:14 4 mg ONETIME ONE Administration Departure - Departure Time of Disposition: 01:40 Disposition: Home, Self-Care 01 Condition: Poor Clinical Impression: Urinary tract infection Qualifiers: Urinary tract infection type: acute cystitis Hematuria presence: with hematuria Qualified Code(s): N30.01 - Acute cystitis with hematuria - Discharge Information Instructions: Urinary Tract Infection, Adult, [id number] Referrals: PCP,None [Primary Care Provider] - Forms: ED Department Discharge Additional Instructions: Take full course of antibiotics, please followup with your primary care provider in 3-5 days if not better, please call return to the emergency department with worsening of symptoms. Sepsis Event Note - Evaluation Sepsis Screening Result: No Definite Risk - Focused Exam Vital Signs: Vital Signs Temp Pulse Resp BP Pulse Ox 02/10/20 22:50 98.3 F 84 16 143/76 H 96 Date Exam was Performed: 02/11/20 Time Exam was Performed: 01:39 - My Orders Last 24 Hours: My Active Orders 02/10/20 23:11 Sodium Chloride 0.9% [Saline Flush] 10 ml FLUSH ASDIRECTED PRN Peripheral IV Insertion Adult [OM.PC] Urgent 02/10/20 23:12 Peripheral IV Care [RC] . DIRECTED 02/10/20 23:15 Sodium Chloride 0.9% [Normal Saline] 1,000 ml IV ASDIRECTED - Assessment/Plan Last 24 Hours: My Active Orders 02/10/20 23:11 Sodium Chloride 0.9% [Saline Flush] 10 ml FLUSH ASDIRECTED PRN Peripheral IV Insertion Adult [OM.PC] Urgent 02/10/20 23:12 Peripheral IV Care [RC] . DIRECTED 02/10/20 23:15 Sodium Chloride 0.9% [Normal Saline] 1,000 ml IV ASDIRECTED Plan: Assessment Acuity = acute Site and laterality = urinary tract infection Etiology = E. coli Manifestations = none Location of injury = Home Lab values = CBC, CMP, troponin lipase all within normal limits CT scan shows no acute process in the abdomen sensitivity to E. coli culture for Rocephin as well as Bactrim Plan She was given 1 g Rocephin while in the emergency department as well as 50 mics of fentanyl was able to rest comfortably she does have antibiotics of Bactrim awaiting at pharmacy discharged to home follow-up with primary care next 3 to 5 days if not better This note was dictated using [employer] voice recognition software please call with any questions on syntax or grammar.
[2020-02-10] MEDS ORDERED: Iopamidol 612 MG/ML 100 ML Bottle IV STA (23:29)
--- NOTE | 2020-02-11 00:26 | CRLCT ---
INDICATION: Epigastric pain TECHNIQUE: Axial images were obtained from the diaphragm to the pubic symphysis. Reformats were obtained in the coronal and sagittal plane. IV Contrast: 100 cc Isovue-300 Oral Contrast: None COMPARISON: Abdomen and pelvis CT 09/29/2019 FINDINGS: Lower chest: Status post median sternotomy. Liver: Cirrhotic morphology of the liver with hypertrophy of the left lobe and atrophy of the right lobe. Indeterminate 4 millimeter hypodense lesion right lobe (3, 62). Patent TIPS extending from the main portal vein to inferior vena cava. Gallbladder and bile ducts: Status post cholecystectomy. Spleen: Unremarkable. Normal in size without mass. Pancreas: Unremarkable. No mass or inflammation. Adrenal glands: Unremarkable. No nodules. Kidneys: No hydronephrosis with left renal scarring. Vasculature: No abdominal aortic aneurysm. Status post coiling in the epigastric region. GI tract: The stomach is decompressed. Proximal small bowel loops are upper normal in caliber (2, 52) and the remainder of the small bowel is decompressed. Colon decompressed. Pelvis: Unremarkable. Bones: Degenerative disc disease lumbar spine, greatest at the L4-5 and L5-S1 levels. IMPRESSION: 1. Cirrhotic morphology of the liver with patent TIPS and status post epigastric coiling. 2. Upper normal diameter loops of proximal small bowel. No evidence of obstruction. This is probably within normal limits although a mild enteritis is possible. Please note that all CT scans at this facility use dose modulation, iterative reconstruction, and/or weight-based dosing when appropriate to reduce radiation dose to as low as reasonably achievable. Dictated by Rolando Mckenna MD @ Feb 11 2020 12:13AM Signed by Dr. Rolando Mckenna @ Feb 11 2020 12:24AM
== END 2020-02-11 01:50 | disposition home or self-care (01) ==
LOC: JP.ED 22:44
DX: N30.01 Acute cystitis with hematuria (principal); I10 Essential (primary) hypertension; K21.9 Gastro-esophageal reflux disease without esophagitis; I25.2 Old myocardial infarction; I25.10 Atherosclerotic heart disease of native coronary artery without angina pectoris; R56.9 Unspecified convulsions; Z91.013 Allergy to seafood; Z91.018 Allergy to other foods; Z88.8 Allergy status to other drugs, medicaments and biological substances; F17.210 Nicotine dependence, cigarettes, uncomplicated; Z86.73 Personal history of transient ischemic attack (TIA), and cerebral infarction without residual deficits; Z79.899 Other long term (current) drug therapy; Z90.49 Acquired absence of other specified parts of digestive tract; Z98.890 Other specified postprocedural states
CPT/HCPCS: 36415; 74177; 80053; 83605; 83690; 84484; 85025; 96365; 96375; 99284; J0696; J2405; J3010; J7030; J7050; Q9967

== ENCOUNTER 2020-03-20 04:52 | Emergency (ER) | payer MEDICAID ==
--- NOTE | 2020-03-20 05:46 | EDM.PDOC ---
ED HPI GENERAL MEDICAL PROBLEM - General Chief Complaint: Laceration Stated Complaint: FELL CUT TO RT SIDE OF HEAD Time Seen by Provider: 03/20/20 05:30 Source of Information: Reports: Patient History Limitations: Reports: Intoxication - History of Present Illness INITIAL COMMENTS - FREE TEXT/NARRATIVE: 45-year-old female who bumped her head I believe on the floor when she fell and has a small 1.5 cm laceration on the right parietal scalp. No loss of consciousness. She has been drinking. Onset: Sudden Duration: Hour(s): (Within the last 2 hours) Location: Reports: Head Associated Symptoms: Reports: No Other Symptoms Head Pain Score (Numeric/FACES): 9 - Related Data Allergies Allergy/AdvReac Type Severity Reaction Status Date / Time Fish Containing Products Allergy Severe Airway Verified 03/20/20 05:02 Tightness ziprasidone [From Geodon] Allergy Severe Airway Verified 03/20/20 05:02 Tightness tree nut Allergy Hives Verified 03/20/20 05:02 lamotrigine [From Lamictal] AdvReac Leg Cramps Verified 03/20/20 05:02 msg Allergy Hives Uncoded 03/20/20 05:02 Home Meds: Home Meds Cyanocobalamin (Vitamin B-12) [B-12] 250 mcg PO DAILY 07/29/17 [History] Gabapentin [Neurontin] 200 mg PO BID 07/29/17 [History] Lactulose 30 ml PO TID 07/29/17 [History] levETIRAcetam [Keppra] 500 mg PO BID 07/29/17 [History] Omeprazole 20 mg PO BID 10/19/17 [History] Cholecalciferol (Vitamin D3) [Vitamin D3] 1 tab PO DAILY 09/16/19 [History] Folic Acid 1 mg PO DAILY 09/16/19 [History] Magnesium 400 mg PO DAILY 09/16/19 [History] Albuterol Sulfate [Proventil Hfa] 6.7 gm IH Q4H 09/29/19 [History] Albuterol [Proventil Neb Soln] 2.5 mg INH Q4H PRN 09/29/19 [History] Ferrous Gluconate 324 mg PO DAILY 09/29/19 [History] Furosemide 40 mg PO DAILY 09/29/19 [History] Lidocaine/Kinesiology Tape [Lidopure Patch 5% Combo Pack] 1 each TP DAILY 09/29/19 [History] Methyl Salicylate/Menthol [Salonpas Patch] 1 each TP Q24H 09/29/19 [History] Multivit with Minerals No.55 [Centrum Flavor Burst Adult] 1 tab PO DAILY 09/29/19 [History] Nitroglycerin [Nitrostat] 0.4 mg SL ASDIRECTED PRN 09/29/19 [History] Ondansetron [Zofran ODT] 1 tab PO Q8H PRN 09/29/19 [History] Rifaximin [Xifaxan] 550 mg PO BID 09/29/19 [History] Spironolactone [Aldactone] 100 mg PO DAILY 09/29/19 [History] Thiamine [Vitamin B-1] 1 tab PO DAILY 09/29/19 [History] hydrOXYzine HCL [Hydroxyzine HCl] 100 mg PO QID PRN 09/29/19 [History] oxyCODONE 5 mg PO Q6H PRN 09/29/19 [History] Meclizine [Antivert] 12.5 mg PO TID 11/28/19 [History] Past Medical History HEENT History: Reports: Hard of Hearing, Impaired Vision Cardiovascular History: Reports: CAD, [place], Other (See Below) Other Cardiovascular History: portal hypertension Respiratory History: Reports: Asthma Gastrointestinal History: Reports: Cirrhosis, GERD, Other (See Below) Other Gastrointestinal History: ascites, liver disease, cholecystitis, hepatic encephalopathy, stent placed in liver Genitourinary History: Reports: Renal Calculus, Other (See Below) Other Genitourinary History: urethral stent placed that extends to kidney MANAGEMENT MANAGER History: Reports: , Spontaneous , Other (See Below) Other MANAGEMENT MANAGER History: Irregular [place] Musculoskeletal History: Reports: Back Pain, Chronic, Fracture, Other (See Below) Other Musculoskeletal History: colar bone, Neurological History: Reports: Brain Injury, CVA, Head Trauma, Seizure, Vertigo, Other (See Below) Other Neuro History: TBI ICH Skull defect Psychiatric History: Reports: Addiction, Anxiety, Depression, Psych Hospitalization(s), Suicide Attempt Hematologic History: Reports: Blood Transfusion(s), Iron Deficiency, Other (See Below) Other Hematologic History: Hypokelemia, hypomagnesemia, hyponatremia Oncologic (Cancer) History: Reports: Cervix - Infectious Disease History Infectious Disease History: Reports: Chicken Pox - Past Surgical History Head Surgeries/Procedures: Reports: None HEENT Surgical History: Reports: Adenoidectomy, Tonsillectomy Cardiovascular Surgical History: Reports: Coronary Artery Bypass Respiratory Surgical History: Reports: None GI Surgical History: Reports: Appendectomy, Cholecystectomy Female Surgical History: Reports: Cystectomy, Other (See Below) Other Female Surgeries/Procedures: removal of abscess from left breast Neurological Surgical History: Reports: None Musculoskeletal Surgical History: Reports: None, Carpal Tunnel Oncologic Surgical History: Reports: None Dermatological Surgical History: Reports: None Social & Family History - Family History Family Medical History: Noncontributory - Tobacco Use Smoking Status *Q: Current Every Day Smoker Years of Tobacco use: 39 Packs/Tins Daily: 0.2 Used Tobacco, but Quit: No Second Hand Smoke Exposure: Yes - Caffeine Use Caffeine Use: Reports: Coffee, Soda Caffeine Use Comment: 2 cups of coffee per day; 3 diet pops per day - Alcohol Use Days Per Week of Alcohol Use: 0 - Recreational Drug Use Recreational Drug Use: No - Living Situation & Occupation Living situation: Reports: Single Occupation: Disabled (lives in Apartment, Sister and Uncle live in same building.) ED ROS GENERAL - Review of Systems Review Of Systems: See Below Constitutional: Denies: Fever, Chills Respiratory: Denies: Shortness of Breath Cardiovascular: Denies: Chest Pain Neurological: Reports: Headache ED EXAM, SKIN/RASH Exam: See Below Exam Limited By: Intoxication General Appearance: Alert, No Apparent Distress Head: Other (1.5 cm straight laceration on the right parietal scalp) Respiratory/Chest: No Respiratory Distress Neurological: Alert, Oriented Course - Vital Signs Last Recorded V/S: Last Vital Signs Temp 98.8 F 03/20/20 05:02 Pulse 77 03/20/20 05:02 Resp 18 03/20/20 05:02 BP 109/36 L 03/20/20 05:02 Pulse Ox 98 03/20/20 05:02 - Re-Assessments/Exams Free Text/Narrative Re-Assessment/Exam: 03/20/20 05:44 Without anesthesia, 2 donny were quickly placed into the scalp to close the laceration, edges approximated well. She will return in 7 days to have these removed. Departure - Departure Time of Disposition: 06:05 Disposition: Home, Self-Care 01 Clinical Impression: Laceration of scalp Qualifiers: Encounter type: initial encounter Qualified Code(s): S01.01XA - Laceration without foreign body of scalp, initial encounter - Discharge Information Instructions: Wound Care, Adult Referrals: Zelda Rodriguez DO [Primary Care Provider] - Forms: ED Department Discharge Care Plan Goals: Keep wound clean while healing, and donny can be removed in 6 or 7 days. Return sooner if concerns of infection or not healing satisfactorily. Sepsis Event Note (ED) - Evaluation Sepsis Screening Result: No Definite Risk - Focused Exam Vital Signs: Vital Signs Temp Pulse Resp BP Pulse Ox 03/20/20 05:02 98.8 F 77 18 109/36 L 98
== END 2020-03-20 06:05 | disposition home or self-care (01) ==
LOC: JP.ED 04:52
DX: S01.01XA Laceration without foreign body of scalp, initial encounter (principal); I25.10 Atherosclerotic heart disease of native coronary artery without angina pectoris; I25.2 Old myocardial infarction; K21.9 Gastro-esophageal reflux disease without esophagitis; F41.9 Anxiety disorder, unspecified; D50.9 Iron deficiency anemia, unspecified; F17.210 Nicotine dependence, cigarettes, uncomplicated; Z91.013 Allergy to seafood; Z91.018 Allergy to other foods; Z88.8 Allergy status to other drugs, medicaments and biological substances; Z79.899 Other long term (current) drug therapy; W19.XXXA Unspecified fall, initial encounter; W22.8XXA Striking against or struck by other objects, initial encounter
CPT/HCPCS: 12001; 99282

== ENCOUNTER 2020-03-27 11:42 | Emergency (ER) | payer MEDICAID ==
[2020-03-27] MEDS ORDERED: Aspirin 81 MG Tab.Chew PO ONE (12:04)
[2020-03-27] MEDS ORDERED: Ondansetron 4 MG/2 ML SDV IVPUSH ONE (12:04)
[2020-03-27] MEDS ORDERED: Ketorolac 30 MG/ML SDV IVPUSH ONE (12:04)
[2020-03-27] MEDS ORDERED: Morphine 2 MG/ML SYRINGE IVPUSH STA (12:05)
[2020-03-27] MEDS ORDERED: Sodium Chloride 0.9% 10 ML Syringe FLUSH PRN (12:06)
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
[2020-03-27] MEDS ORDERED: Alum Hydrox/Mag Hydrox/Simeth 15 ML, Lidocaine 2% 15 ML PO ONE ×2 (13:24)
--- NOTE | 2020-03-29 10:26 | CR ---
CHEST: 2 view CLINICAL HISTORY:Chest pain COMPARISON:02/01/2020 FINDINGS: There has been previous sternotomy. The heart size, pulmonary vascularity and hilar structures are normal. No infiltrate effusion or pneumothorax is seen. IMPRESSION: No acute cardiopulmonary process. Previous sternotomy
== END 2020-03-27 14:35 | disposition home or self-care (01) ==
LOC: JP.ED 11:42
DX: K22.4 Dyskinesia of esophagus (principal); R07.89 Other chest pain; N94.89 Other specified conditions associated with female genital organs and menstrual cycle; I25.10 Atherosclerotic heart disease of native coronary artery without angina pectoris; I25.2 Old myocardial infarction; J45.909 Unspecified asthma, uncomplicated; K21.9 Gastro-esophageal reflux disease without esophagitis; F17.210 Nicotine dependence, cigarettes, uncomplicated; Z86.73 Personal history of transient ischemic attack (TIA), and cerebral infarction without residual deficits; K76.6 Portal hypertension; Z95.5 Presence of coronary angioplasty implant and graft; Z91.013 Allergy to seafood; Z88.8 Allergy status to other drugs, medicaments and biological substances; Z79.899 Other long term (current) drug therapy; Z95.1 Presence of aortocoronary bypass graft
CPT/HCPCS: 36415; 71046; 80053; 81001; 84484; 85025; 85379; 93005; 96374; 96375; 99285; A9270; J1885; J2270; J2405

== ENCOUNTER 2020-04-09 22:10 | Emergency (ER) | payer MEDICAID ==
[2020-04-09] MEDS ORDERED: Albuterol/Ipratropium 3.0-0.5 MG/3 ML Neb Soln NEB ONE (22:11)
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
== END 2020-04-10 00:05 | disposition home or self-care (01) ==
LOC: JP.ED 22:10
DX: G40.909 Epilepsy, unspecified, not intractable, without status epilepticus (principal); I25.10 Atherosclerotic heart disease of native coronary artery without angina pectoris; I25.2 Old myocardial infarction; K21.9 Gastro-esophageal reflux disease without esophagitis; F41.9 Anxiety disorder, unspecified; F32.9 Major depressive disorder, single episode, unspecified; J45.909 Unspecified asthma, uncomplicated; Z95.1 Presence of aortocoronary bypass graft; Z91.013 Allergy to seafood; Z91.018 Allergy to other foods; Z88.8 Allergy status to other drugs, medicaments and biological substances; Z91.048 Other nonmedicinal substance allergy status; Z79.899 Other long term (current) drug therapy
CPT/HCPCS: 94640; 99284-25; J7620-GY

== ENCOUNTER 2020-04-10 14:58 | Emergency (ER) | payer MEDICAID ==
[2020-04-10] MEDS ORDERED: Alum Hydrox/Mag Hydrox/Simeth 15 ML, Lidocaine 2% 15 ML PO ONE ×2 (15:40)
[2020-04-10] MEDS ORDERED: Ondansetron 4 MG/2 ML SDV IVPUSH ONE (15:41)
[2020-04-10] MEDS ORDERED: Sodium Chloride 0.9% 1,000 ML IV SCH (15:45)
--- NOTE | 2020-04-10 15:52 | EDM.PDOC ---
ED HPI GENERAL MEDICAL PROBLEM - General Chief Complaint: Abdominal Pain Stated Complaint: ABD PAIN/DRINKING Time Seen by Provider: 04/10/20 15:14 Source of Information: Reports: Patient History Limitations: Reports: No Limitations - History of Present Illness INITIAL COMMENTS - FREE TEXT/NARRATIVE: 45 yo old female presents to ER with c/o abd pain in association with etOH cons umption last evening. pt was also seen in the ER last evening. Pt states that currently she is having pain in her epigastric area and she feels "confused" she states that she has been forgetful today. She drank etOH until early this AM. She did eat this morning when she took her pain medications. per review of last nights note she has not been taking her keppra and she has a known seizure dis order. She has established care and is restricted to that provider for medication prescriptions. She is end stage liver disease and takes lactulose daily so does have a constant state of diarrhea. - Related Data Allergies Allergy/AdvReac Type Severity Reaction Status Date / Time Fish Containing Products Allergy Severe Airway Verified 04/10/20 15:15 Tightness ziprasidone [From Geodon] Allergy Severe Airway Verified 04/10/20 15:15 Tightness tree nut Allergy Hives Verified 04/10/20 15:15 lamotrigine [From Lamictal] AdvReac Leg Cramps Verified 04/10/20 15:15 msg Allergy Hives Uncoded 04/10/20 15:15 Home Meds: Home Meds Cyanocobalamin (Vitamin B-12) [B-12] 250 mcg PO DAILY 07/29/17 [History] Gabapentin [Neurontin] 200 mg PO BID 07/29/17 [History] Lactulose 30 ml PO TID 07/29/17 [History] levETIRAcetam [Keppra] 500 mg PO BID 07/29/17 [History] Omeprazole 20 mg PO BID 10/19/17 [History] Cholecalciferol (Vitamin D3) [Vitamin D3] 1 tab PO DAILY 09/16/19 [History] Folic Acid 1 mg PO DAILY 09/16/19 [History] Albuterol Sulfate [Proventil Hfa] 6.7 gm IH Q4H 09/29/19 [History] Albuterol [Proventil Neb Soln] 2.5 mg INH Q4H PRN 09/29/19 [History] Ferrous Gluconate 324 mg PO DAILY 09/29/19 [History] Furosemide 40 mg PO DAILY 09/29/19 [History] Lidocaine/Kinesiology Tape [Lidopure Patch 5% Combo Pack] 1 each TP DAILY 09/29/19 [History] Methyl Salicylate/Menthol [Salonpas Patch] 1 each TP Q24H 09/29/19 [History] Multivit with Minerals No.55 [Centrum Flavor Burst Adult] 1 tab PO DAILY [History] Nitroglycerin [Nitrostat] 0.4 mg SL ASDIRECTED PRN 09/29/19 [History] Rifaximin [Xifaxan] 550 mg PO BID 09/29/19 [History] Spironolactone [Aldactone] 100 mg PO DAILY 09/29/19 [History] Thiamine [Vitamin B-1] 1 tab PO DAILY 09/29/19 [History] hydrOXYzine HCL [Hydroxyzine HCl] 100 mg PO TID 09/29/19 [History] oxyCODONE 5 mg PO Q6H PRN 09/29/19 [History] Meclizine [Antivert] 12.5 mg PO TID 11/28/19 [History] Sucralfate [Carafate] 1 gm PO BEDTIME 40 Days #40 tablet 03/27/20 [Rx] Past Medical History HEENT History: Reports: Hard of Hearing, Impaired Vision Cardiovascular History: Reports: CAD, OR, Other (See Below) Other Cardiovascular History: portal hypertension. 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: Irregular [place] Musculoskeletal History: Reports: Back Pain, Chronic, Fracture, Other (See Below) Other Musculoskeletal History: colar bone, Neurological History: Reports: Brain Injury, CVA, Head Trauma, Seizure, Vertigo, Other (See Below) Other Neuro History: TBI ICH Skull defect Psychiatric History: Reports: Addiction, Anxiety, Depression, Psych Hospitalization(s), Suicide Attempt Hematologic History: Reports: Blood Transfusion(s), Iron Deficiency, Other (See Below) Other Hematologic History: Hypokelemia, hypomagnesemia, hyponatremia Oncologic (Cancer) History: Reports: Cervix - Infectious Disease History Infectious Disease History: Reports: Chicken Pox - Past Surgical History Head Surgeries/Procedures: Reports: None HEENT Surgical History: Reports: Adenoidectomy, Tonsillectomy Cardiovascular Surgical History: Reports: Coronary Artery Bypass Other Cardiovascular Surgeries/Procedures: cabg x 1 Respiratory Surgical History: Reports: None GI Surgical History: Reports: Appendectomy, Cholecystectomy Female Surgical History: Reports: Cystectomy, Other (See Below) Other Female Surgeries/Procedures: removal of abscess from left breast Neurological Surgical History: Reports: None Musculoskeletal Surgical History: Reports: None, Carpal Tunnel Oncologic Surgical History: Reports: None Dermatological Surgical History: Reports: None Social & Family History - Family History Family Medical History: Noncontributory - Tobacco Use Smoking Status *Q: Current Every Day Smoker Years of Tobacco use: 39 Packs/Tins Daily: 3 Used Tobacco, but Quit: No Second Hand Smoke Exposure: No - Caffeine Use Caffeine Use: Reports: Coffee, Soda Caffeine Use Comment: 2 cups of coffee per day; 3 diet pops per day - Alcohol Use Number of Drinks Per Day: 1 - Recreational Drug Use Recreational Drug Use: No - Living Situation & Occupation Living situation: Reports: Single Occupation: Disabled (lives in Apartment, Sister and Uncle live in same building.) ED ROS GENERAL - Review of Systems Review Of Systems: See Below Constitutional: Reports: Fatigue. Denies: Fever, Chills Respiratory: Denies: Shortness of Breath, Wheezing Cardiovascular: Denies: Chest Pain Endocrine: Denies: Fatigue GI/Abdominal: Reports: Abdominal Pain, Diarrhea, Distension Skin: Denies: Rash Neurological: Reports: Seizure ED EXAM, GI/ABD - Physical Exam Exam: See Below Exam Limited By: No Limitations General Appearance: Alert, WD/WN Neck: Normal Inspection, Supple, Non-Tender, Full Range of Motion. No: Lymphadenopathy (R), Lymphadenopathy (L) Respiratory/Chest: No Respiratory Distress, Lungs Clear, Normal Breath Sounds, N o Accessory Muscle Use, Chest Non-Tender, Crackles, Rales, Rhonchi, Wheezing Cardiovascular: Regular Rate, Rhythm, No Edema, No Murmur GI/Abdominal Exam: Soft, Distended, Tender (upper) Neurological: Alert, Oriented, Normal Cognition, Normal Gait Psychiatric: Normal Affect, Normal Mood Skin Exam: Warm, Dry, Intact Course - Vital Signs Last Recorded V/S: Last Vital Signs Temp 36.9 C 04/10/20 15:19 Pulse 77 04/10/20 16:10 Resp 16 04/10/20 15:19 BP 122/56 L 04/10/20 16:10 Pulse Ox 92 L 04/10/20 16:10 - Orders/Labs/Meds Orders: Active Orders 24 hr Category Date Time Status Sodium Chloride 0.9% [Normal Saline] 1,000 ml Med 04/10/20 15:45 Active IV ASDIRECTED Medication Orders Sodium Chloride (Normal Saline) 1,000 mls @ 999 mls/hr IV ASDIRECTED JOSE Last Admin: 04/10/20 15:56 Dose: 999 mls/hr Documented by: MORE Labs: Laboratory Tests 04/10/20 Range/Units 15:40 WBC 6.2 (4.5-11.0) K/uL RBC 4.00 (3.30-5.50) M/uL Hgb 13.0 (12.0-15.0) g/dL Hct 38.2 (36.0-48.0) % MCV 96 (80-98) fL MCH 33 H (27-31) pg MCHC 34 (32-36) % Plt Count 102 L (150-400) K/uL Neut % (Auto) 39 (36-66) % Lymph % (Auto) 51 H (24-44) % [place] % (Auto) 8 H (2-6) % Eos % (Auto) 2 (2-4) % Baso % (Auto) 1 (0-1) % Meds: Medications Generic Name Dose Route Start Last Admin Trade Name Freq PRN Reason Stop Dose Admin Sodium Chloride 1,000 mls @ 999 mls/hr 04/10/20 15:45 04/10/20 15:56 Normal Saline IV 999 mls/hr ASDIRECTED JOSE Administration Discontinued Medications Generic Name Dose Route Start Last Admin Trade Name Freq PRN Reason Stop Dose Admin Al Hydroxide/Mg Hydroxide 15 0 ml 04/10/20 15:40 04/10/20 15:56 ml/ Lidocaine HCl 15 ml PO 04/10/20 15:41 15 ml ONETIME ONE Administration Ondansetron HCl 4 mg 04/10/20 15:41 04/10/20 15:55 Zofran IVPUSH 04/10/20 15:42 4 mg ONETIME ONE Administration - Re-Assessments/Exams Free Text/Narrative Re-Assessment/Exam: 04/10/20 16:48 marked improvement in pain with GI cocktail. rehydrated with 1 liter fluids Departure - Departure Time of Disposition: 16:49 Disposition: Home, Self-Care 01 Condition: Good Clinical Impression: Epigastric pain, ETOH abuse - Discharge Information *PRESCRIPTION DRUG MONITORING PROGRAM REVIEWED*: Not Applicable *COPY OF PRESCRIPTION DRUG MONITORING REPORT IN PATIENT NOMAN: Not Applicable Instructions: Alcohol Abuse and Nutrition Referrals: Zelda Rodriguez DO [Primary Care Provider] - Forms: ED Department Discharge Additional Instructions: abstain from alcohol Sepsis Event Note (ED) - Evaluation Sepsis Screening Result: No Definite Risk - Focused Exam Vital Signs: Vital Signs Temp Pulse Resp BP Pulse Ox 04/10/20 16:10 77 122/56 L 92 L 04/10/20 15:19 36.9 C 87 16 140/69 95 04/10/20 15:14 36.9 C 87 16 140/69 95 - My Orders Last 24 Hours: My Active Orders 04/10/20 15:45 Sodium Chloride 0.9% [Normal Saline] 1,000 ml IV ASDIRECTED - Assessment/Plan Last 24 Hours: My Active Orders 04/10/20 15:45 Sodium Chloride 0.9% [Normal Saline] 1,000 ml IV ASDIRECTED
== END 2020-04-10 17:03 | disposition home or self-care (01) ==
LOC: JP.ED 14:58
DX: R10.13 Epigastric pain (principal); F10.10 Alcohol abuse, uncomplicated; I25.10 Atherosclerotic heart disease of native coronary artery without angina pectoris; I25.2 Old myocardial infarction; J45.909 Unspecified asthma, uncomplicated; K21.9 Gastro-esophageal reflux disease without esophagitis; F41.9 Anxiety disorder, unspecified; F32.9 Major depressive disorder, single episode, unspecified; R56.9 Unspecified convulsions; F17.210 Nicotine dependence, cigarettes, uncomplicated; Z91.013 Allergy to seafood; Z88.8 Allergy status to other drugs, medicaments and biological substances; Z91.018 Allergy to other foods; Z86.73 Personal history of transient ischemic attack (TIA), and cerebral infarction without residual deficits
CPT/HCPCS: 36415; 85025; 96361; 96374; 99284; A9270; J2405; J7030

== ENCOUNTER 2020-05-23 18:51 | Emergency (ER) | payer MEDICAID ==
--- NOTE | 2020-05-23 19:00 | EDM.PDOC ---
ED HPI GENERAL MEDICAL PROBLEM - General Chief Complaint: Syncope Stated Complaint: MEDICAL [facility] Time Seen by Provider: 05/23/20 18:52 Source of Information: Reports: Patient, EMS History Limitations: Reports: No Limitations - History of Present Illness INITIAL COMMENTS - FREE TEXT/NARRATIVE: Patient presents by ambulance from home describing feeling dizzy while sitting in a chair and then passing out and falling forward onto her face on the floor. She told EMS that she thought she was "out" for 1 or 2 minutes. She had some forehead pain and neck pain at evaluation at the scene but otherwise denies any other recent changes in her condition. Onset: Sudden Onset Date: 05/23/20 Location: Reports: Head, Neck, Upper Extremity, Left (Left wrist region pain.) Quality: Reports: Dull Severity: Mild Improves with: Reports: None Worsens with: Reports: None Associated Symptoms: Reports: No Other Symptoms right forehead Pain Score (Numeric/FACES): 8 neck Pain Score (Numeric/FACES): 8 - Related Data Allergies Allergy/AdvReac Type Severity Reaction Status Date / Time Fish Containing Products Allergy Severe Airway Verified 05/23/20 18:59 Tightness ziprasidone [From Geodon] Allergy Severe Airway Verified 05/23/20 18:59 Tightness tree nut Allergy Hives Verified 05/23/20 18:59 lamotrigine [From Lamictal] AdvReac Leg Cramps Verified 05/23/20 18:59 msg Allergy Hives Uncoded 05/23/20 18:59 Home Meds: Home Meds Cyanocobalamin (Vitamin B-12) [B-12] 250 mcg PO DAILY 07/29/17 [History] Gabapentin [Neurontin] 200 mg PO BID 07/29/17 [History] Lactulose 30 ml PO TID 07/29/17 [History] levETIRAcetam [Keppra] 500 mg PO BID 07/29/17 [History] Omeprazole 20 mg PO BID 10/19/17 [History] Cholecalciferol (Vitamin D3) [Vitamin D3] 1 tab PO DAILY 09/16/19 [History] Folic Acid 1 mg PO DAILY 09/16/19 [History] Albuterol Sulfate [Proventil Hfa] 6.7 gm IH Q4H 09/29/19 [History] Albuterol [Proventil Neb Soln] 2.5 mg INH Q4H PRN 09/29/19 [History] Ferrous Gluconate 324 mg PO DAILY 09/29/19 [History] Furosemide 40 mg PO DAILY 09/29/19 [History] Lidocaine/Kinesiology Tape [Lidopure Patch 5% Combo Pack] 1 each TP DAILY 09/29/19 [History] Methyl Salicylate/Menthol [Salonpas Patch] 1 each TP Q24H 09/29/19 [History] Multivit with Minerals No.55 [Centrum Flavor Burst Adult] 1 tab PO DAILY 09/29/19 [History] Nitroglycerin [Nitrostat] 0.4 mg SL ASDIRECTED PRN 09/29/19 [History] Rifaximin [Xifaxan] 550 mg PO BID 09/29/19 [History] Spironolactone [Aldactone] 100 mg PO DAILY 09/29/19 [History] Thiamine [Vitamin B-1] 1 tab PO DAILY 09/29/19 [History] hydrOXYzine HCL [Hydroxyzine HCl] 100 mg PO TID 09/29/19 [History] oxyCODONE 5 mg PO Q6H PRN 09/29/19 [History] Meclizine [Antivert] 12.5 mg PO TID 11/28/19 [History] Sucralfate [Carafate] 1 gm PO BEDTIME 40 Days #40 tablet 03/27/20 [Rx] Past Medical History HEENT History: Reports: Hard of Hearing, Impaired Vision Cardiovascular History: Reports: CAD, OR, Other (See Below) Other Cardiovascular History: portal hypertension. 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 [place] Musculoskeletal History: Reports: Back Pain, Chronic, Fracture, Other (See Below) Other Musculoskeletal History: colar bone, Neurological History: Reports: Brain Injury, CVA, Head Trauma, Seizure, Vertigo, Other (See Below) Other Neuro History: TBI ICH Skull defect Psychiatric History: Reports: Addiction, Anxiety, Depression, Psych Hospitalization(s), Suicide Attempt Hematologic History: Reports: Blood Transfusion(s), Iron Deficiency, Other (See Below) Other Hematologic History: Hypokelemia, hypomagnesemia, hyponatremia Oncologic (Cancer) History: Reports: Cervix - Infectious Disease History Infectious Disease History: Reports: Chicken Pox - Past Surgical History Head Surgeries/Procedures: Reports: None HEENT Surgical History: Reports: Adenoidectomy, Tonsillectomy Cardiovascular Surgical History: Reports: Coronary Artery Bypass Other Cardiovascular Surgeries/Procedures: cabg x 1 Respiratory Surgical History: Reports: None GI Surgical History: Reports: Appendectomy, Cholecystectomy Female Surgical History: Reports: Cystectomy, Other (See Below) Other Female Surgeries/Procedures: removal of abscess from left breast Neurological Surgical History: Reports: None Musculoskeletal Surgical History: Reports: None, Carpal Tunnel Oncologic Surgical History: Reports: None Dermatological Surgical History: Reports: None Social & Family History - Family History Family Medical History: Noncontributory - Caffeine Use Caffeine Use: Reports: Coffee, Soda Caffeine Use Comment: 2 cups of coffee per day; 3 diet pops per day - Living Situation & Occupation Living situation: Reports: Single Occupation: Disabled (lives in Apartment, Sister and Uncle live in same building.) ED ROS GENERAL - Review of Systems Review Of Systems: See Below Constitutional: Reports: No Symptoms HEENT: Reports: No Symptoms Respiratory: Reports: No Symptoms Cardiovascular: Reports: No Symptoms GI/Abdominal: Reports: No Symptoms Musculoskeletal: Reports: Neck Pain (Posterior neck pain, she thinks she has whiplash.), Arm Pain (Left distal forearm and wrist region pain, she thinks she hyper flexed her wrist when falling to the floor.) Skin: Denies: Mottled, Erythema, Change in Color Neurological: Denies: Dizziness, Headache - Physical Exam Exam: See Below Text/Narrative:: This is an adult female interviewed while on the cart in room 4. She recalls details of the incident with clarity. Exam Limited By: No Limitations General Appearance: Alert, No Apparent Distress Eye Exam: Bilateral Eye: EOMI Nose: Normal Inspection Throat/Mouth: Normal Inspection Head Exam: Atraumatic, Other (There is some diffuse tenderness across the crown of the skull.) Neck: Supple, Tender Lateral (There is bilateral posterior soft tissue tenderness but no bony vertebral pain.) Respiratory/Chest: No Respiratory Distress Cardiovascular: Regular Rate, Rhythm GI/Abdominal: Soft, Non-Tender Neuro Exam (Abbreviated): Alert, Oriented, No Motor/Sensory Deficits. No: Confused, Disoriented, Slow to Respond, Memory Loss Recent Events Extremities: Arm Pain (There is pain on palpation over the distal left radius and ulna and the left carpal bones. No crepitus is palpable with passive and active wrist manipulation but she feels more sore with flexion of the wrist.) Psychiatric: Flat Affect Skin Exam: Other (No visible bruising. She has purple dye on her hands and areas of the scalp adjacent to her hair from having her sister color her hair earlier today.) Course - Vital Signs Last Recorded V/S: Last Vital Signs Temp 37.3 C 05/23/20 19:04 Pulse 84 05/23/20 19:04 Resp 17 05/23/20 19:04 BP 113/49 L 05/23/20 19:04 Pulse Ox 97 05/23/20 19:04 Orthostatic Blood Pressure [] 127/70 Orthostatic Blood Pressure [] 124/68 Orthostatic Blood Pressure [] 122/65 - Orders/Labs/Meds Orders: Active Orders 24 hr Category Date Time Status Orthostatic Vital Signs [RC] ASDIRECTED Care 05/23/20 19:13 Ordered Forearm 2V Lt [CR] Stat Exams 05/23/20 19:12 Ordered - Re-Assessments/Exams Free Text/Narrative Re-Assessment/Exam: 05/23/20 18:59 We will obtain orthostatic vital signs and an x-ray of the left forearm region. Given her exam and the mechanism of injury, she does not require CT scanning of the head or cervical spine. 05/23/20 19:20 05/23/20 19:41 Left forearm x-rays reviewed personally by myself shows no evidence of fracture or malalignment. I recommend cold packs to painful areas 20 minutes off and on. She should use Tylenol 650 mg 4 times a day regularly for the next 4 days. Pain will gradually improve with time. Departure - Departure Time of Disposition: 19:33 Disposition: Home, Self-Care 01 Clinical Impression: Strain of neck muscle Fall from chair Qualifiers: Encounter type: initial encounter Qualified Code(s): W07.XXXA - Fall from chair, initial encounter Left wrist sprain Qualifiers: Encounter type: initial encounter Qualified Code(s): S63.502A - Unspecified sprain of left wrist, initial encounter - Discharge Information Instructions: Fall Prevention in the Home, Adult, [id number], How to Use Cold Therapy, [id number], Understanding Your Risk for Falls, Wrist Sprain, Adult Referrals: PCP,None [Primary Care Provider] - Forms: ED Department Discharge Additional Instructions: Cold packs to painful areas 20 minutes off and on. Tylenol 650 mg 4 times daily for discomfort regularly for the next 4 days. You will probably have muscle soreness for several days as things begin to improve. Sepsis Event Note (ED) - Focused Exam Vital Signs: Vital Signs Temp Pulse Resp BP Pulse Ox 05/23/20 19:04 37.3 C 84 17 113/49 L 97 05/23/20 19:00 37.3 C 84 17 113/49 L 97 - My Orders Last 24 Hours: My Active Orders 05/23/20 19:12 Forearm 2V Lt [CR] Stat 05/23/20 19:13 Orthostatic Vital Signs [RC] ASDIRECTED - Assessment/Plan Last 24 Hours: My Active Orders 05/23/20 19:12 Forearm 2V Lt [CR] Stat 05/23/20 19:13 Orthostatic Vital Signs [RC] ASDIRECTED
--- NOTE | 2020-05-24 10:48 | CR ---
Forearm 2V Lt CLINICAL HISTORY: Fall FINDINGS: There is no acute fracture within the forearm. IMPRESSION: Negative left forearm.
== END 2020-05-23 19:50 | disposition home or self-care (01) ==
LOC: JP.ED 18:51
DX: S16.1XXA Strain of muscle, fascia and tendon at neck level, initial encounter (principal); S63.502A Unspecified sprain of left wrist, initial encounter; I25.10 Atherosclerotic heart disease of native coronary artery without angina pectoris; I25.2 Old myocardial infarction; J45.909 Unspecified asthma, uncomplicated; K21.9 Gastro-esophageal reflux disease without esophagitis; Z91.013 Allergy to seafood; Z88.8 Allergy status to other drugs, medicaments and biological substances; Z79.899 Other long term (current) drug therapy; Z86.73 Personal history of transient ischemic attack (TIA), and cerebral infarction without residual deficits; W07.XXXA Fall from chair, initial encounter
CPT/HCPCS: 73090-26-LT; 73090-LT; 99283; 99284

== ENCOUNTER 2020-05-28 21:16 | Emergency (ER) | payer MEDICAID ==
[2020-05-28] MEDS: Albuterol/Ipratropium 3.0-0.5 MG/3 ML Neb Soln NEB ONE (22:26)
--- NOTE | 2020-05-28 23:16 | EDM.PDOC ---
ED HPI GENERAL MEDICAL PROBLEM - General Chief Complaint: General Stated Complaint: FELL Time Seen by Provider: 05/28/20 21:24 Source of Information: Reports: Patient History Limitations: Reports: No Limitations - History of Present Illness INITIAL COMMENTS - FREE TEXT/NARRATIVE: Patient presents via private vehicle from her home, dropped off by relative, concerned that she hit her head on a table at home tonight and might have sustained skull or brain damage. She also has been more short of breath and coughing recently and is wheezing. She has what sounds like an albuterol inhaler that she puts in her mouth and fire twice, with what sounds like very poor technique. That helps her breathing somewhat although she seems to get more relief from her nebulizer machine. She was coughing earlier this evening and was standing up. She felt lightheaded and thinks that she dropped to the floor and then hit the right side of her head against a coffee table. She states that she was probably "out" for 1 minute. She has had no bleeding or obvious signs of injury to the head. She feels moderately short of breath as we are talking. Same description of falling and head injury symptoms was provided to me 5 days ago in this department. 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 below) (Albuterol) Head Pain Score (Numeric/FACES): 8 - Related Data Allergies Allergy/AdvReac Type Severity Reaction Status Date / Time Fish Containing Products Allergy Severe Airway Verified 05/23/20 18:59 Tightness ziprasidone [From Geodon] Allergy Severe Airway Verified 05/23/20 18:59 Tightness tree nut Allergy Hives Verified 05/23/20 18:59 lamotrigine [From Lamictal] AdvReac Leg Cramps Verified 05/23/20 18:59 msg Allergy Hives Uncoded 05/23/20 18:59 Home Meds: Home Meds Cyanocobalamin (Vitamin B-12) [B-12] 250 mcg PO DAILY 07/29/17 [History] Gabapentin [Neurontin] 200 mg PO BID 07/29/17 [History] Lactulose 30 ml PO TID 07/29/17 [History] levETIRAcetam [Keppra] 500 mg PO BID 07/29/17 [History] Omeprazole 20 mg PO BID 10/19/17 [History] Cholecalciferol (Vitamin D3) [Vitamin D3] 1 tab PO DAILY 09/16/19 [History] Folic Acid 1 mg PO DAILY 09/16/19 [History] Albuterol Sulfate [Proventil Hfa] 6.7 gm IH Q4H 09/29/19 [History] Albuterol [Proventil Neb Soln] 2.5 mg INH Q4H PRN 09/29/19 [History] Ferrous Gluconate 324 mg PO DAILY 09/29/19 [History] Furosemide 40 mg PO DAILY 09/29/19 [History] Lidocaine/Kinesiology Tape [Lidopure Patch 5% Combo Pack] 1 each TP DAILY 09/29/19 [History] Methyl Salicylate/Menthol [Salonpas Patch] 1 each TP Q24H 09/29/19 [History] Multivit with Minerals No.55 [Centrum Flavor Burst Adult] 1 tab PO DAILY 09/29/19 [History] Nitroglycerin [Nitrostat] 0.4 mg SL ASDIRECTED PRN 09/29/19 [History] Rifaximin [Xifaxan] 550 mg PO BID 09/29/19 [History] Spironolactone [Aldactone] 100 mg PO DAILY 09/29/19 [History] Thiamine [Vitamin B-1] 1 tab PO DAILY 09/29/19 [History] hydrOXYzine HCL [Hydroxyzine HCl] 100 mg PO TID 09/29/19 [History] oxyCODONE 5 mg PO Q6H PRN 09/29/19 [History] Meclizine [Antivert] 12.5 mg PO TID 11/28/19 [History] Sucralfate [Carafate] 1 gm PO BEDTIME 40 Days #40 tablet 03/27/20 [Rx] Past Medical History HEENT History: Reports: Hard of Hearing, Impaired Vision Cardiovascular History: Reports: CAD, [place], Other (See Below) Other Cardiovascular History: portal hypertension. 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: Reports: , Spontaneous , Other (See Below) Other PERFORMANCE ANALYST History: Irregular [place] Musculoskeletal History: Reports: Back Pain, Chronic, Fracture, Other (See Below) Other Musculoskeletal History: colar bone, Neurological History: Reports: Brain Injury, CVA, Head Trauma, Seizure, Vertigo, Other (See Below) Other Neuro History: TBI ICH Skull defect Psychiatric History: Reports: Addiction, Anxiety, Depression, Psych Hospitalization(s), Suicide Attempt Hematologic History: Reports: Blood Transfusion(s), Iron Deficiency, Other (See Below) Other Hematologic History: Hypokelemia, hypomagnesemia, hyponatremia Oncologic (Cancer) History: Reports: Cervix - Infectious Disease History Infectious Disease History: Reports: Chicken Pox - Past Surgical History Head Surgeries/Procedures: Reports: None HEENT Surgical History: Reports: Adenoidectomy, Tonsillectomy Cardiovascular Surgical History: Reports: Coronary Artery Bypass Other Cardiovascular Surgeries/Procedures: cabg x 1 Respiratory Surgical History: Reports: None GI Surgical History: Reports: Appendectomy, Cholecystectomy Female Surgical History: Reports: Cystectomy, Other (See Below) Other Female Surgeries/Procedures: removal of abscess from left breast Neurological Surgical History: Reports: None Musculoskeletal Surgical History: Reports: None, Carpal Tunnel Oncologic Surgical History: Reports: None Dermatological Surgical History: Reports: None Social & Family History - Family History Family Medical History: Noncontributory - Tobacco Use Smoking Status *Q: Current Every Day Smoker Years of Tobacco use: 39 Packs/Tins Daily: 0.1 - Caffeine Use Caffeine Use: Reports: Coffee, Soda Caffeine Use Comment: 2 cups of coffee per day; 3 diet pops per day - Recreational Drug Use Recreational Drug Use: No - Living Situation & Occupation Living situation: Reports: Single Occupation: Disabled (lives in Apartment, Sister and Uncle live in same building.) ED ROS GENERAL - Review of Systems Review Of Systems: See Below Constitutional: Reports: No Symptoms HEENT: Reports: No Symptoms Respiratory: Reports: Shortness of Breath, Wheezing, Cough Cardiovascular: Reports: No Symptoms Endocrine: Reports: No Symptoms GI/Abdominal: Reports: No Symptoms Musculoskeletal: Reports: Muscle Stiffness Skin: Reports: No Symptoms. Denies: Bruising, Pruritis, Lumps Psychiatric: Reports: Anxiety ED EXAM, GENERAL - Physical Exam Exam: See Below Free Text/Narrative:: The patient is curled up on her side covered with blankets and her coat resting comfortably when I arrive. Exam Limited By: No Limitations General Appearance: No Apparent Distress, Anxious Eye Exam: Bilateral Eye: EOMI, Normal Inspection Head: Atraumatic (There is no evidence of abrasion or contusion to the scalp anywhere. No bony shifts or displacement.) Neck: Supple, Non-Tender Respiratory/Chest: Respiratory Distress, Wheezing Cardiovascular: Regular Rate, Rhythm Neurological: Alert, Oriented, Normal Cognition Course - Vital Signs Last Recorded V/S: Last Vital Signs Temp 36.6 C 05/28/20 21:47 Pulse 81 05/28/20 21:47 Resp 19 05/28/20 21:47 BP 128/79 05/28/20 21:47 Pulse Ox 95 05/28/20 21:47 - Orders/Labs/Meds Meds: Medications Discontinued Medications Generic Name Dose Route Start Last Admin Trade Name Juan PRN Reason Stop Dose Admin Albuterol/Ipratropium 3 ml 05/28/20 22:20 05/28/20 22:26 Duoneb 3.0-0.5 Mg/3 Ml NEB 05/28/20 22:21 3 ml ONETIME ONE Administration - Re-Assessments/Exams Free Text/Narrative Re-Assessment/Exam: 05/29/20 00:09 Patient will be given 1 DuoNeb treatment. When I returned later, she was resting/sleeping comfortably on her side and felt much better. There was no residual wheezing. She was sent with a prescription for a metered-dose inhaler spacer and we reviewed its use with albuterol inhaler. I do not believe she needs prednisone. She can use Tylenol for any aches. Continue other current medications and care plans. If she begins to cough, I recommend that she sit down as she may have had an episode of cough syncope or cough near syncope tonight. Risk for injury would be less if she does her coughing while seated. Departure - Departure Time of Disposition: 23:13 Disposition: Home, Self-Care 01 Clinical Impression: Wheezing, Cough syncope Head contusion Qualifiers: Encounter type: initial encounter Contusion of head detail: unspecified part of head Qualified Code(s): S00.93XA - Contusion of unspecified part of head, initial encounter - Discharge Information Instructions: Cough, Adult, [id number], Facial or Scalp Contusion Referrals: Zelda Rodriguez DO [Primary Care Provider] - Forms: ED Department Discharge Additional Instructions: Use Tylenol as needed for headaches. In the morning, go to your pharmacy and car pick up driver the spacer tube to use with your rescue inhaler. When you feel short of breath, have chest tightness, are coughing more, put the spacer in your mouth and the inhaler in the other end. Push the inhaler and draw the contents into your lungs by slow inhalation. Hold them in your chest for 15 seconds before breathing outflow through your nose. Repeat with a second inhalation, breathing and slow holding for 15 seconds and then exhaling slow through the nose. Recheck with primary care as needed. If feeling worse in any way return here. Sepsis Event Note (ED) - Evaluation Sepsis Screening Result: No Definite Risk - Focused Exam Vital Signs: Vital Signs Temp Pulse Resp BP Pulse Ox 05/28/20 21:47 36.6 C 81 19 128/79 95 05/28/20 21:46 36.6 C 81 19 128/79 95
== END 2020-05-28 23:45 | disposition home or self-care (01) ==
LOC: JP.ED 21:16
DX: S00.93XA Contusion of unspecified part of head, initial encounter (principal); R55 Syncope and collapse; R05 Cough; R06.2 Wheezing; I25.2 Old myocardial infarction; I25.10 Atherosclerotic heart disease of native coronary artery without angina pectoris; K21.9 Gastro-esophageal reflux disease without esophagitis; F17.210 Nicotine dependence, cigarettes, uncomplicated; Z91.013 Allergy to seafood; Z88.8 Allergy status to other drugs, medicaments and biological substances; Z91.018 Allergy to other foods; Z79.899 Other long term (current) drug therapy; Z90.49 Acquired absence of other specified parts of digestive tract; Z95.1 Presence of aortocoronary bypass graft; W22.8XXA Striking against or struck by other objects, initial encounter; Y92.009 Unspecified place in unspecified non-institutional (private) residence as the place of occurrence of the external cause
CPT/HCPCS: 94640; 99284-25; J7620-GY

== ENCOUNTER 2020-05-30 20:37 | Emergency (ER) | payer MEDICAID ==
[2020-05-30] MEDS ORDERED: Ketorolac 60 MG/2 ML SDV IM ONE (21:06)
--- NOTE | 2020-05-30 21:19 | EDM.PDOC ---
ED HPI GENERAL MEDICAL PROBLEM - General Chief Complaint: Back Pain or Injury Stated Complaint: ACCIDENT VIA NORT Time Seen by Provider: 05/30/20 21:16 Source of Information: Reports: Patient, EMS, Old Records, RN History Limitations: Reports: Intoxication - History of Present Illness INITIAL COMMENTS - FREE TEXT/NARRATIVE: 45 yo female with chronic low back pain is brought in tonight via EMS for her back pain. EMS states that she ran out of her oxycodone so needs pain relief. She told nursing that she didn't take her oxycodone because she is trying to get off of it. EMS didn't see any alcohol bottles, but said she was acting a bit like she was intoxicated. No new injury was reported. She tells me she fell between her bed and her recliner a couple hrs before arrival injuring her head, R elbow and R low back. Lives alone. 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 (see below) (none) back adn stomache Pain Score (Numeric/FACES): 10 - Related Data Allergies Allergy/AdvReac Type Severity Reaction Status Date / Time Fish Containing Products Allergy Severe Airway Verified 05/30/20 20:48 Tightness ziprasidone [From Geodon] Allergy Severe Airway Verified 05/30/20 20:48 Tightness tree nut Allergy Hives Verified 05/30/20 20:48 lamotrigine [From Lamictal] AdvReac Leg Cramps Verified 05/30/20 20:48 msg Allergy Hives Uncoded 05/30/20 20:48 Home Meds: Home Meds Cyanocobalamin (Vitamin B-12) [B-12] 250 mcg PO DAILY 07/29/17 [History] Gabapentin [Neurontin] 200 mg PO BID 07/29/17 [History] Lactulose 30 ml PO TID 07/29/17 [History] levETIRAcetam [Keppra] 500 mg PO BID 07/29/17 [History] Omeprazole 20 mg PO BID 10/19/17 [History] Cholecalciferol (Vitamin D3) [Vitamin D3] 1 tab PO DAILY 09/16/19 [History] Folic Acid 1 mg PO DAILY 09/16/19 [History] Albuterol Sulfate [Proventil Hfa] 6.7 gm IH Q4H 09/29/19 [History] Albuterol [Proventil Neb Soln] 2.5 mg INH Q4H PRN 09/29/19 [History] Ferrous Gluconate 324 mg PO DAILY 09/29/19 [History] Furosemide 40 mg PO DAILY 09/29/19 [History] Multivit with Minerals No.55 [Centrum Flavor Burst Adult] 1 tab PO DAILY 09/29/19 [History] Nitroglycerin [Nitrostat] 0.4 mg SL ASDIRECTED PRN 09/29/19 [History] Rifaximin [Xifaxan] 550 mg PO BID 09/29/19 [History] Spironolactone [Aldactone] 100 mg PO DAILY 09/29/19 [History] Thiamine [Vitamin B-1] 1 tab PO DAILY 09/29/19 [History] hydrOXYzine HCL [Hydroxyzine HCl] 100 mg PO TID 09/29/19 [History] oxyCODONE 5 mg PO Q6H PRN 09/29/19 [History] Meclizine [Antivert] 0 mg PO TID 11/28/19 [History] Sucralfate [Carafate] 1 gm PO BEDTIME 40 Days #40 tablet 03/27/20 [Rx] Past Medical History HEENT History: Reports: Hard of Hearing, Impaired Vision Cardiovascular History: Reports: CAD, [place], Other (See Below) Other Cardiovascular History: portal hypertension. [place] was 2002 Respiratory History: Reports: Asthma Gastrointestinal History: Reports: Cirrhosis, GERD, Other (See Below) Other Gastrointestinal History: ascites, liver disease, cholecystitis, hepatic encephalopathy, stent placed in liver, voices that she is in last stages of liver failure. Genitourinary History: Reports: Renal Calculus, Other (See Below) Other Genitourinary History: urethral stent placed that extends to kidney PMO LEAD History: Reports: , Spontaneous , Other (See Below) Other PMO LEAD History: Irregular [place] Musculoskeletal History: Reports: Back Pain, Chronic, Fracture, Other (See Below) Other Musculoskeletal History: colar bone, Neurological History: Reports: Brain Injury, CVA, Head Trauma, Seizure, Vertigo, Other (See Below) Other Neuro History: TBI ICH Skull defect Psychiatric History: Reports: Addiction, Anxiety, Depression, Psych Hospitalization(s), Suicide Attempt Hematologic History: Reports: Blood Transfusion(s), Iron Deficiency, Other (See Below) Other Hematologic History: Hypokelemia, hypomagnesemia, hyponatremia Oncologic (Cancer) History: Reports: Cervix - Infectious Disease History Infectious Disease History: Reports: Chicken Pox - Past Surgical History Head Surgeries/Procedures: Reports: None HEENT Surgical History: Reports: Adenoidectomy, Tonsillectomy Cardiovascular Surgical History: Reports: Coronary Artery Bypass Other Cardiovascular Surgeries/Procedures: cabg x 1 Respiratory Surgical History: Reports: None GI Surgical History: Reports: Appendectomy, Cholecystectomy, EGD Female Surgical History: Reports: Cystectomy, Other (See Below) Other Female Surgeries/Procedures: removal of abscess from left breast Neurological Surgical History: Reports: None Musculoskeletal Surgical History: Reports: None, Carpal Tunnel Oncologic Surgical History: Reports: None Dermatological Surgical History: Reports: None Social & Family History - Family History Family Medical History: Noncontributory - Tobacco Use Smoking Status *Q: Current Every Day Smoker Years of Tobacco use: 30 Packs/Tins Daily: 0.3 - Caffeine Use Caffeine Use: Reports: Coffee Caffeine Use Comment: 2 cups of coffee per day; 3 diet pops per day - Recreational Drug Use Recreational Drug Use: No - Living Situation & Occupation Living situation: Reports: Single Occupation: Disabled (lives in Apartment, Sister and Uncle live in same building.) ED ROS GENERAL - Review of Systems Review Of Systems: See Below Constitutional: Reports: No Symptoms HEENT: Reports: No Symptoms Respiratory: Reports: No Symptoms Cardiovascular: Reports: No Symptoms Endocrine: Reports: No Symptoms GI/Abdominal: Reports: No Symptoms : Reports: No Symptoms Musculoskeletal: Reports: Back Pain, Joint Pain (R elbow) Skin: Reports: No Symptoms Neurological: Reports: No Symptoms Psychiatric: Reports: No Symptoms ED EXAM,LOWER BACK PAIN/INJURY - Physical Exam Exam: See Below Exam Limited By: Intoxication General Appearance: WD/WN, No Apparent Distress, Lethargic Eye Exam: Bilateral Eye: Normal Inspection Ears: Normal External Exam, Normal Canal, Hearing Grossly Normal, Normal TMs Nose: Normal Inspection, No Blood Throat/Mouth: Normal Inspection, Normal Lips, Normal Oropharynx, Normal Voice, No Airway Compromise Head: Atraumatic, Normocephalic Neck: Normal Inspection Respiratory/Chest: No Respiratory Distress, Lungs Clear, Normal Breath Sounds, No Accessory Muscle Use Cardiovascular: Regular Rate, Rhythm, No Edema GI/Abdominal: Normal Bowel Sounds, Soft, Non-Tender, No Distention Back Exam: Normal Inspection. No: CVA Tenderness (R), CVA Tenderness (L), Vertebral Tenderness Extremities: Normal Inspection, Normal Range of Motion, Non-Tender, No Pedal Edema Neurological: Normal Mood/Affect, CN II-XII Intact, No Motor/Sensory Deficits, Ataxia, Difficulty Walking (due to intoxication with ETOH), Other (speech somewhat slurred.) Psychiatric: Flat Affect Skin Exam: Warm, Dry, Intact, Normal Color, No Rash Course - Vital Signs Last Recorded V/S: Last Vital Signs Temp 36.7 C 05/30/20 20:56 Pulse 79 05/30/20 20:56 Resp 18 05/30/20 20:56 BP 117/62 05/30/20 20:56 Pulse Ox 95 05/30/20 20:56 - Orders/Labs/Meds Labs: Laboratory Tests 05/30/20 05/30/20 05/30/20 Range/Units 21:15 21:57 21:59 Urine Color Yellow (YELLOW) Urine Appearance Clear (CLEAR) Urine pH 6.5 (5.0-8.0) Ur Specific [place] 1.025 (1.008-1.030) Urine Protein 100 H (NEGATIVE) mg/dL Urine Glucose (UA) Negative (NEGATIVE) mg/dL Urine Ketones Negative (NEGATIVE) mg/dL Urine Occult Blood Moderate H (NEGATIVE) Urine Nitrite Negative (NEGATIVE) Urine Bilirubin Negative (NEGATIVE) Urine Urobilinogen 0.2 (0.2-1.0) EU/dL Ur Leukocyte Esterase Negative (NEGATIVE) Urine RBC Not seen (0-5) Urine WBC 0-5 (0-5) Ur Epithelial Cells Many Urine Bacteria Few Urine Opiates Screen Negative (NEGATIVE) Ur Oxycodone Screen Presumptive positive H (NEGATIVE) Urine Methadone Screen Negative (NEGATIVE) Ur Propoxyphene Screen Negative (NEGATIVE) Ur Barbiturates Screen Negative (NEGATIVE) Ur Tricyclics Screen Negative (NEGATIVE) Ur Phencyclidine Scrn Negative (NEGATIVE) Ur Amphetamine Screen Negative (NEGATIVE) U Methamphetamines Scrn Negative (NEGATIVE) Urine MDMA Screen Negative (NEGATIVE) U Benzodiazepines Scrn Negative (NEGATIVE) U Cocaine Metab Screen Negative (NEGATIVE) U Marijuana (THC) Screen Negative (NEGATIVE) Ethyl Alcohol 322 mg/dL Meds: Medications Discontinued Medications Generic Name Dose Route Start Last Admin Trade Name Freq PRN Reason Stop Dose Admin Ketorolac Tromethamine 60 mg 05/30/20 21:06 05/30/20 21:19 Toradol IM 05/30/20 21:07 60 mg ONETIME ONE Administration Thiamine HCl 100 mg 05/30/20 21:46 05/30/20 21:51 Vitamin B-1 PO 05/30/20 21:47 100 mg ONETIME ONE Administration - Re-Assessments/Exams Free Text/Narrative Re-Assessment/Exam: 05/30/20 23:43 pain is better after Toradol. Agreeable to going to [facility]. Departure - Departure Time of Disposition: 23:42 Disposition: DC/Tfer to Other 70 Condition: Fair Clinical Impression: Multiple contusions Alcohol intoxication Qualifiers: Complication of substance-induced condition: with unspecified complication Qualified Code(s): F10.929 - Alcohol use, unspecified with intoxication, unspecified Alcohol dependence Qualifiers: Substance use status: unspecified alcohol-induced disorder Qualified Code(s): F10.29 - Alcohol dependence with unspecified alcohol-induced disorder - Discharge Information *PRESCRIPTION DRUG MONITORING PROGRAM REVIEWED*: No *COPY OF PRESCRIPTION DRUG MONITORING REPORT IN PATIENT NOMAN: No Referrals: PCP,None [Primary Care Provider] - Forms: ED Department Discharge Additional Instructions: To [facility] for detox. Sepsis Event Note (ED) - Evaluation Sepsis Screening Result: No Definite Risk - Focused Exam Vital Signs: Vital Signs Temp Pulse Resp BP Pulse Ox 05/30/20 20:56 36.7 C 79 18 117/62 95
[2020-05-30] MEDS ORDERED: Thiamine 100 MG Tab PO ONE (21:46)
== END 2020-05-30 23:50 | disposition other institution (70) ==
LOC: JP.ED 20:37
DX: S50.01XA Contusion of right elbow, initial encounter (principal); S30.0XXA Contusion of lower back and pelvis, initial encounter; S00.93XA Contusion of unspecified part of head, initial encounter; F10.29 Alcohol dependence with unspecified alcohol-induced disorder; F17.210 Nicotine dependence, cigarettes, uncomplicated; I25.10 Atherosclerotic heart disease of native coronary artery without angina pectoris; I25.2 Old myocardial infarction; J45.909 Unspecified asthma, uncomplicated; K21.9 Gastro-esophageal reflux disease without esophagitis; Z86.73 Personal history of transient ischemic attack (TIA), and cerebral infarction without residual deficits; F41.9 Anxiety disorder, unspecified; F32.9 Major depressive disorder, single episode, unspecified; Y90.8 Blood alcohol level of 240 mg/100 ml or more; Z79.899 Other long term (current) drug therapy; W17.89XA Other fall from one level to another, initial encounter
CPT/HCPCS: 36415; 80305; 80307; 81001; 96372; 99284; A9270; J1885; 99283

== ENCOUNTER 2020-05-31 15:14 | Emergency (ER) | payer MEDICAID ==
--- NOTE | 2020-05-31 15:57 | EDM.PDOC ---
ED HPI GENERAL MEDICAL PROBLEM - General Chief Complaint: Back Pain or Injury Stated Complaint: FALL, BACK PAIN Time Seen by Provider: 05/31/20 15:45 Source of Information: Reports: Patient History Limitations: Reports: No Limitations - History of Present Illness INITIAL COMMENTS - FREE TEXT/NARRATIVE: Cris is a 45 year old female, presents to the ED today with c/o lower back pain. Patient is well known to this facility, is on chronic oxycodone for her back pain, frequently will drink ETOH for pain control when she runs out of her oxycodone. Patient was at [facility] last night as she was intoxicated and left there to come here. [place] informed us that patient claims she fell while she was in the shower there injuring her back, they report that there was no obvious trauma, patient signed out and presented here. When questioned, patient reports that she fell trying to get her pants on after she put on a Depends which she always wears secondary to being on daily lactulose for her liver failure. Patient reports she fell last night as well and that occasionally her legs give out on her which has been since her stroke. Patient denies any new loss of bowel/bladder control. Lower Back Pain Score (Numeric/FACES): 8 - Related Data Allergies Allergy/AdvReac Type Severity Reaction Status Date / Time Fish Containing Products Allergy Severe Airway Verified 05/31/20 15:45 Tightness ziprasidone [From Geodon] Allergy Severe Airway Verified 05/31/20 15:45 Tightness tree nut Allergy Hives Verified 05/31/20 15:45 lamotrigine [From Lamictal] AdvReac Leg Cramps Verified 05/31/20 15:45 msg Allergy Hives Uncoded 05/31/20 15:45 Home Meds: Home Meds Cyanocobalamin (Vitamin B-12) [B-12] 250 mcg PO DAILY 07/29/17 [History] Gabapentin [Neurontin] 200 mg PO BID 07/29/17 [History] Lactulose 30 ml PO TID 07/29/17 [History] levETIRAcetam [Keppra] 500 mg PO BID 07/29/17 [History] Omeprazole 20 mg PO BID 10/19/17 [History] Cholecalciferol (Vitamin D3) [Vitamin D3] 1 tab PO DAILY 09/16/19 [History] Folic Acid 1 mg PO DAILY 09/16/19 [History] Albuterol Sulfate [Proventil Hfa] 6.7 gm IH Q4H 09/29/19 [History] Albuterol [Proventil Neb Soln] 2.5 mg INH Q4H PRN 09/29/19 [History] Ferrous Gluconate 324 mg PO DAILY 09/29/19 [History] Furosemide 40 mg PO DAILY 09/29/19 [History] Multivit with Minerals No.55 [Centrum Flavor Burst Adult] 1 tab PO DAILY 09/29/19 [History] Nitroglycerin [Nitrostat] 0.4 mg SL ASDIRECTED PRN 09/29/19 [History] Rifaximin [Xifaxan] 550 mg PO BID 09/29/19 [History] Spironolactone [Aldactone] 100 mg PO DAILY 09/29/19 [History] Thiamine [Vitamin B-1] 1 tab PO DAILY 09/29/19 [History] hydrOXYzine HCL [Hydroxyzine HCl] 100 mg PO TID 09/29/19 [History] oxyCODONE 5 mg PO Q6H PRN 09/29/19 [History] Meclizine [Antivert] 0 mg PO TID 11/28/19 [History] Sucralfate [Carafate] 1 gm PO BEDTIME 40 Days #40 tablet 03/27/20 [Rx] Past Medical History HEENT History: Reports: Hard of Hearing, Impaired Vision Cardiovascular History: Reports: CAD, [place], Other (See Below) Other Cardiovascular History: portal hypertension. [place] was 2002 Respiratory History: Reports: Asthma Gastrointestinal History: Reports: Cirrhosis, GERD, Other (See Below) Other Gastrointestinal History: ascites, liver disease, cholecystitis, hepatic encephalopathy, stent placed in liver, voices that she is in last stages of liver failure. Genitourinary History: Reports: Renal Calculus, Other (See Below) Other Genitourinary History: urethral stent placed that extends to kidney INSULATION FOREMAN History: Reports: , Spontaneous , Other (See Below) Other INSULATION FOREMAN History: Irregular [place] Musculoskeletal History: Reports: Back Pain, Chronic, Fracture, Other (See Below) Other Musculoskeletal History: colar bone, Neurological History: Reports: Brain Injury, CVA, Head Trauma, Seizure, Vertigo, Other (See Below) Other Neuro History: TBI ICH Skull defect Psychiatric History: Reports: Addiction, Anxiety, Depression, Psych Hospitalization(s), Suicide Attempt Hematologic History: Reports: Blood Transfusion(s), Iron Deficiency, Other (See Below) Other Hematologic History: Hypokelemia, hypomagnesemia, hyponatremia Oncologic (Cancer) History: Reports: Cervix - Infectious Disease History Infectious Disease History: Reports: Chicken Pox - Past Surgical History Head Surgeries/Procedures: Reports: None HEENT Surgical History: Reports: Adenoidectomy, Tonsillectomy Cardiovascular Surgical History: Reports: Coronary Artery Bypass Other Cardiovascular Surgeries/Procedures: cabg x 1 Respiratory Surgical History: Reports: None GI Surgical History: Reports: Appendectomy, Cholecystectomy, EGD Female Surgical History: Reports: Cystectomy, Other (See Below) Other Female Surgeries/Procedures: removal of abscess from left breast Neurological Surgical History: Reports: None Musculoskeletal Surgical History: Reports: None, Carpal Tunnel Oncologic Surgical History: Reports: None Dermatological Surgical History: Reports: None Social & Family History - Family History Family Medical History: Noncontributory - Tobacco Use Smoking Status *Q: Current Every Day Smoker Years of Tobacco use: 30 Packs/Tins Daily: 0.5 - Caffeine Use Caffeine Use: Reports: Coffee Caffeine Use Comment: 2 cups of coffee per day; 3 diet pops per day - Recreational Drug Use Recreational Drug Use: Yes Recreational Drug Type: Reports: Marijuana/Hashish, Methamphetamine Other Recreational Drug Type: opiods - Living Situation & Occupation Living situation: Reports: Single Occupation: Disabled (lives in Apartment, Sister and Uncle live in same building.) ED ROS GENERAL - Review of Systems Review Of Systems: Comprehensive ROS is negative, except as noted in HPI. ED EXAM,LOWER BACK PAIN/INJURY - Physical Exam Exam: See Below Exam Limited By: No Limitations General Appearance: Alert, No Apparent Distress Eye Exam: Bilateral Eye: EOMI Ears: Normal External Exam Head: Atraumatic Neck: Supple Respiratory/Chest: No Respiratory Distress Cardiovascular: Regular Rate, Rhythm Extremities: Limited Range of Motion, Other (lumbar spinous process and paraspinous process tenderness on exam) Neurological: Alert, Oriented x 3, Other (strength 4/5 bilateral lower extremities, cap refill distal pulses intact) Psychiatric: Normal Affect Lymphatic: No Adenopathy Course - Vital Signs Last Recorded V/S: Last Vital Signs Temp 37.5 C 05/31/20 15:43 Pulse 96 05/31/20 15:43 Resp 16 05/31/20 15:43 BP 122/80 05/31/20 15:43 Pulse Ox 96 05/31/20 15:43 Cris is a 45 year old female who presents to the ED today with c/o lower back pain. Please refer to HPI and focused exam. 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 Her last fill is May 17 [address] her at another refill, I asked patient about this, she reports that she and her PCP are "working on it" and this is why she drinks when she runs out of pain medication. I had a long discussion with patient with regard to her drinking and opioid use. I did inform patient I would not prescribed her any narcotics from the ED today or give her any here. I did offer her a tapering course of Prednisone which may be helpful which patient was agreeable to. Patient has no new neuro/focal deficits. She has inconsistent stories about her fall earlier today and I am not convinced she really sustained an injury. No indication for imaging today. Patient does tell me she has an appt coming up with neurosurgery for an injection which I encouraged her to keep. I did discuss with patient reasons to return to the ED, she is agreeable to plan of care and was discharged in stable condition. Departure - Departure Time of Disposition: 16:15 Disposition: Home, Self-Care 01 Condition: Good Clinical Impression: Chronic low back pain Qualifiers: Back pain laterality: midline Sciatica presence: without sciatica Qualified Code(s): M54.5 - Low back pain - Discharge Information Referrals: Zelda Rodriguez DO [Primary Care Provider] - Forms: ED Department Discharge Additional Instructions: Start prednisone today, take as directed with future doses in the morning so they do not affect your sleep. Stay well hydrated. Follow up with neurosurgery as scheduled for injection. Sepsis Event Note (ED) - Focused Exam Vital Signs: Vital Signs Temp Pulse Resp BP Pulse Ox 05/31/20 15:43 37.5 C 96 16 122/80 96
== END 2020-05-31 16:28 | disposition home or self-care (01) ==
LOC: JP.ED 15:14
DX: G89.29 Other chronic pain (principal); M54.5 Low back pain; I25.10 Atherosclerotic heart disease of native coronary artery without angina pectoris; I25.2 Old myocardial infarction; J45.909 Unspecified asthma, uncomplicated; K21.9 Gastro-esophageal reflux disease without esophagitis; D50.9 Iron deficiency anemia, unspecified; F17.210 Nicotine dependence, cigarettes, uncomplicated; Z91.013 Allergy to seafood; Z88.8 Allergy status to other drugs, medicaments and biological substances; Z91.018 Allergy to other foods; Z79.899 Other long term (current) drug therapy
CPT/HCPCS: 99283

== ENCOUNTER 2020-06-01 19:46 | Emergency (ER) | payer MEDICAID ==
--- NOTE | 2020-06-01 20:54 | EDM.PDOC ---
ED HPI GENERAL MEDICAL PROBLEM - General Chief Complaint: Head Injury Stated Complaint: MEDICAL [facility] Time Seen by Provider: 06/01/20 20:24 - History of Present Illness INITIAL COMMENTS - FREE TEXT/NARRATIVE: Louann is a 45-year-old female presenting to the ED by EMS for evaluation of injuries related to falling. Patient states that she was standing and her legs gave out causing her to fall to the ground and hit her head. She is complaining of head pain with nausea, vision changes, neck pain, thoracic and lumbar back pain. She has past medical history significant for chronic pain syndrome and chronic low back pain. She reports that they have done spinal injections without any improvement. She reports that the pain patch that she has on makes her numb and contributes to her falling but when she does not use the pain patch her pain is uncontrolled and intolerable. It appears the patient may have also started drinking again as she is slurring her words. Patient has a past medical history significant for alcohol abuse which may have contributed to her fall today. Right Temporal Head Pain Score (Numeric/FACES): 9 Lower Neck Pain Score (Numeric/FACES): 9 Lower Back Pain Score (Numeric/FACES): 10 - Related Data Allergies Allergy/AdvReac Type Severity Reaction Status Date / Time Fish Containing Products Allergy Severe Airway Verified 05/31/20 15:45 Tightness ziprasidone [From Geodon] Allergy Severe Airway Verified 05/31/20 15:45 Tightness tree nut Allergy Hives Verified 05/31/20 15:45 lamotrigine [From Lamictal] AdvReac Leg Cramps Verified 05/31/20 15:45 msg Allergy Hives Uncoded 05/31/20 15:45 Home Meds: Home Meds Cyanocobalamin (Vitamin B-12) [B-12] 250 mcg PO DAILY 07/29/17 [History] Gabapentin [Neurontin] 200 mg PO BID 07/29/17 [History] Lactulose 30 ml PO TID 07/29/17 [History] levETIRAcetam [Keppra] 500 mg PO BID 07/29/17 [History] Omeprazole 20 mg PO BID 10/19/17 [History] Cholecalciferol (Vitamin D3) [Vitamin D3] 1 tab PO DAILY 09/16/19 [History] Folic Acid 1 mg PO DAILY 12/31/19 [History] Albuterol Sulfate [Proventil Hfa] 6.7 gm IH Q4H 09/29/19 [History] Albuterol [Proventil Neb Soln] 2.5 mg INH Q4H PRN 09/29/19 [History] Ferrous Gluconate 324 mg PO DAILY 09/29/19 [History] Furosemide 40 mg PO DAILY 09/29/19 [History] Multivit with Minerals No.55 [Centrum Flavor Burst Adult] 1 tab PO DAILY 09/29/19 [History] Nitroglycerin [Nitrostat] 0.4 mg SL ASDIRECTED PRN 09/29/19 [History] Rifaximin [Xifaxan] 550 mg PO BID 09/29/19 [History] Spironolactone [Aldactone] 100 mg PO DAILY 09/29/19 [History] Thiamine [Vitamin B-1] 1 tab PO DAILY 09/29/19 [History] hydrOXYzine HCL [Hydroxyzine HCl] 100 mg PO TID 09/29/19 [History] oxyCODONE 5 mg PO Q6H PRN 09/29/19 [History] Meclizine [Antivert] 0 mg PO TID 11/28/19 [History] Sucralfate [Carafate] 1 gm PO BEDTIME 40 Days #40 tablet 03/27/20 [Rx] Past Medical History HEENT History: Reports: Hard of Hearing, Impaired Vision Cardiovascular History: Reports: CAD, [place], Other (See Below) Other Cardiovascular History: portal hypertension. [place] was 2002 Respiratory History: Reports: Asthma Gastrointestinal History: Reports: Cirrhosis, GERD, Other (See Below) Other Gastrointestinal History: ascites, liver disease, cholecystitis, hepatic encephalopathy, stent placed in liver, voices that she is in last stages of liver failure. 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: Reports: , Spontaneous , Other (See Below) Other SALES OFFICE MANAGER History: Irregular [place] Musculoskeletal History: Reports: Back Pain, Chronic, Fracture, Other (See Below) Other Musculoskeletal History: colar bone, Neurological History: Reports: Brain Injury, CVA, Head Trauma, Seizure, Vertigo, Other (See Below) Other Neuro History: TBI ICH Skull defect Psychiatric History: Reports: Addiction, Anxiety, Depression, Psych Hospitalization(s), Suicide Attempt Hematologic History: Reports: Blood Transfusion(s), Iron Deficiency, Other (See Below) Other Hematologic History: Hypokelemia, hypomagnesemia, hyponatremia Oncologic (Cancer) History: Reports: Cervix - Infectious Disease History Infectious Disease History: Reports: C-Difficile - Past Surgical History Head Surgeries/Procedures: Reports: None HEENT Surgical History: Reports: Adenoidectomy, Tonsillectomy Cardiovascular Surgical History: Reports: Coronary Artery Bypass Other Cardiovascular Surgeries/Procedures: cabg x 1 Respiratory Surgical History: Reports: None GI Surgical History: Reports: Appendectomy, Cholecystectomy, EGD Female Surgical History: Reports: Cystectomy, Other (See Below) Other Female Surgeries/Procedures: removal of abscess from left breast Neurological Surgical History: Reports: None Musculoskeletal Surgical History: Reports: None, Carpal Tunnel Oncologic Surgical History: Reports: None Dermatological Surgical History: Reports: None Social & Family History - Family History Family Medical History: Noncontributory - Tobacco Use Smoking Status *Q: Current Every Day Smoker Years of Tobacco use: 38 Packs/Tins Daily: 0.3 - Caffeine Use Caffeine Use: Reports: Coffee Caffeine Use Comment: 2 cups of coffee per day; 3 diet pops per day - Alcohol Use Days Per Week of Alcohol Use: 2 Number of Drinks Per Day: 3 Total Drinks Per Week: 6 - Recreational Drug Use Recreational Drug Use: No - Living Situation & Occupation Living situation: Reports: Single Occupation: Disabled (lives in Apartment, Sister and Uncle live in same building.) ED ROS GENERAL - Review of Systems Review Of Systems: See Below Constitutional: Reports: Weakness (Generalized), Fatigue HEENT: Reports: Other (Head pain) Respiratory: Reports: No Symptoms Cardiovascular: Reports: No Symptoms Endocrine: Reports: No Symptoms GI/Abdominal: Reports: Nausea : Reports: No Symptoms Musculoskeletal: Reports: Neck Pain, Back Pain Skin: Reports: No Symptoms Neurological: Reports: Headache, Numbness (Chronic ), Difficulty Walking (Chronic) Psychiatric: Reports: Anxiety Hematologic/Lymphatic: Reports: No Symptoms Immunologic: Reports: No Symptoms ED EXAM, HEAD INJURY - Physical Exam Exam: See Below Exam Limited By: No Limitations General Appearance: Alert, Anxious, Mild Distress Head: Other (Baseline skull deformity from . No acute changes on exam). No: Scalp Swelling, Scalp Abrasions, Scalp Hematoma Nexus Criteria: Posterior, Midline Cervical Tenderness (Patient states that hurts everywhere I touch but there is no objective midline tenderness to palpation of the cervical spine.), Evidence of Intoxication. No: Altered Level of Consciousness, Focal Neurological Deficit, Painful Distraction Injuries Eyes: Bilateral Eye: EOMI, PERRL Ears: Normal External Exam, Normal Canal, Hearing Grossly Normal, Normal TMs Nose: Normal Inspection, Normal Mucousa, No Blood Throat/Mouth: Normal Inspection, Normal Lips, Normal Teeth, Normal Gums, Normal Oropharynx, Normal Voice, No Airway Compromise Neck: Normal Alignment, Normal Inspection, Tenderness, Tender Lateral, Tender Midline, Other (Neck is immobilized in a cervical collar) Respiratory: No Respiratory Distress, Lungs Clear, Normal Breath Sounds, No Accessory Muscle Use, Chest Non-Tender Cardiovascular: Normal Peripheral Pulses, Regular Rate, Rhythm, No Edema, No Ga llop GI/Abdominal Exam: Normal Bowel Sounds, Soft, Non-Tender Back Exam: Muscle Spasm, Paraspinal Tenderness, Vertebral Tenderness (Patient complains of midline tenderness through the thorax and lumbar spine. For the most part she is complaining of pain everywhere I touch.) Extremities: Normal Inspection, Normal Range of Motion, Non-Tender, No Pedal Edema, Normal Capillary Refill Neurologic: No Motor/Sensory Deficits, Alert, Oriented x 3, Abnormal equipment installer II-XII, Depressed Affect. No: Aphasia, Facial Droop, Motor Weakness, Sensory Deficit, Disoriented x 3 Skin: Normal Color, Warm/Dry - [place] Coma Score Best Eye Response (Ron): (4) Open Spontaneously Best Verbal Response (Ron): (5) Oriented Best Motor Response ([place]): (6) Obeys Commands [place] Total: 15 Course - Vital Signs Last Recorded V/S: Last Vital Signs Temp 36.7 C 06/01/20 20:04 Pulse 83 06/01/20 22:01 Resp 16 06/01/20 20:04 BP 142/93 H 06/01/20 22:01 Pulse Ox 100 06/01/20 22:01 - Orders/Labs/Meds Orders: Active Orders 24 hr Category Date Time Status Cervical Spine wo Cont [CT] Stat Exams 06/01/20 20:41 Taken Head wo Cont [CT] Stat Exams 06/01/20 20:41 Taken Lumbar Spine 2 or 3V [CR] Stat Exams 09/15/20 20:41 Taken Thoracic Spine 2V [CR] Stat Exams 06/01/20 20:41 Taken Labs: Laboratory Tests 06/01/20 06/01/20 06/01/20 Range/Units 20:44 20:57 20:57 WBC 8.8 (4.5-11.0) K/uL RBC 4.45 (3.30-5.50) M/uL Hgb 14.3 (12.0-15.0) g/dL Hct 41.4 (36.0-48.0) % MCV 93 (80-98) fL MCH 32 H (27-31) pg MCHC 35 (32-36) % Plt Count 126 L (150-400) K/uL Neut % (Auto) 44 (36-66) % Lymph % (Auto) 43 (24-44) % [place] % (Auto) 11 H (2-6) % Eos % (Auto) 2 (2-4) % Baso % (Auto) 1 (0-1) % Sodium 145 (140-148) mmol/L Potassium 3.1 L (3.6-5.2) mmol/L Chloride 107 (100-108) mmol/L Carbon Dioxide 23 (21-32) mmol/L Anion Gap 18.1 H (5.0-14.0) mmol/L BUN 13 (7-18) mg/dL Creatinine 1.0 (0.6-1.0) mg/dL Est Cr Clr Drug Dosing 55.01 mL/min Estimated GFR (MDRD) 59 L (>60) Glucose 85 (74-106) mg/dL Calcium 9.2 (8.5-10.1) mg/dL Total Bilirubin 1.3 H (0.2-1.0) mg/dL AST 54 H (15-37) U/L ALT 47 (12-78) U/L Alkaline Phosphatase 123 H (46-116) U/L Total Protein 6.8 (6.4-8.2) g/dL Albumin 3.3 L (3.4-5.0) g/dL Globulin 3.5 (2.3-3.5) g/dL Albumin/Globulin Ratio 0.9 L (1.2-2.2) Ethyl Alcohol 156 mg/dL Meds: Medications Discontinued Medications Generic Name Dose Route Start Last Admin Trade Name Freq PRN Reason Stop Dose Admin Ketorolac Tromethamine 30 mg 06/01/20 20:56 06/01/20 21:01 Toradol IM 06/01/20 20:57 30 mg ONETIME ONE Administration - Radiology Interpretation Free Text/Narrative:: I reviewed the CT of the brain which shows patient status post craniotomy with part of her skull still absent. There is no acute findings when compared to a previous CT of the head. There is encephalomalacia in the right occipital region from previous stroke. There is no acute intracranial hemorrhage, midline shift, or masses seen. I reviewed the CT of the cervical spine showing normal alignment without evidence for acute fracture or subluxation. There is no pre-cervical soft tissue swelling. I reviewed the x-ray of the thoracic spine demonstrating normal ostial architecture without significant acute abnormalities. I reviewed the x-ray of the lumbar spine demonstrating significant disc narrowing at L4-L5 and L5-S1. This does not appear to be acute. There is no significant spondylolisthesis. There is no evidence for any acute fracture or subluxation. - Re-Assessments/Exams Free Text/Narrative Re-Assessment/Exam: 06/01/20 22:42 reassessment of the patient after undergoing CT of the brain, CT of the cervical spine, and x-rays of the thoracic and lumbar spine. The patient was distracted with conversation when I examined her spine and did not elicit any significant pain response except in the lower lumbar region. The cervical collar was removed and the patient does have intact range of motion of the neck without any significant discomfort. Although the patient is intoxicated with a blood alcohol of 0.154, this is likely her baseline rather than her peak. The patient was given Toradol 30 mg IM for pain control which surprisingly did not contribute to her pain resolution, however, she is on more than adequate amount of oxycodone and I do not feel comfortable giving her any additional opiate pain medicine in her intoxicated state. Departure - Departure Time of Disposition: 22:45 Disposition: Home, Self-Care 01 Condition: Good Clinical Impression: Lumbar foraminal stenosis, Lumbar disc herniation with myelopathy Alcohol dependence Qualifiers: Substance use status: unspecified alcohol-induced disorder Qualified Code(s): F10.29 - Alcohol dependence with unspecified alcohol-induced disorder Alcohol intoxication Qualifiers: Complication of substance-induced condition: with unspecified complication Qualified Code(s): F10.929 - Alcohol use, unspecified with intoxication, unspecified Chronic pain Qualifiers: Chronic pain type: chronic pain syndrome Qualified Code(s): G89.4 - Chronic pain syndrome - Discharge Information *PRESCRIPTION DRUG MONITORING PROGRAM REVIEWED*: Yes *COPY OF PRESCRIPTION DRUG MONITORING REPORT IN PATIENT NOMAN: No Instructions: Opioid Pain Medicine Management, What You Need to Know About Chronic Back Pain, Alcohol Abuse and Dependence Information, Adult, Chronic Back Pain, [id number] Referrals: PCP,None [Primary Care Provider] - Forms: ED Department Discharge Care Plan Goals: You should follow-up with your neurosurgeon for your upcoming spinal injection. At this time, additional pain medication is not warranted especially with the continued use of alcohol. Follow-up with your primary care provider to determine if you need a change in medication for your chronic pain. Sepsis Event Note (ED) - Evaluation Sepsis Screening Result: No Definite Risk - Focused Exam Vital Signs: Vital Signs Temp Pulse Resp BP Pulse Ox 06/01/20 22:01 83 142/93 H 100 06/01/20 20:04 36.7 C 89 16 132/79 94 L 06/01/20 19:49 36.7 C 89 16 132/79 94 L - Problem List & Annotations (1) Chronic low back pain SNOMED Code(s): 013457317 Code(s): M54.5 - LOW BACK PAIN; G89.29 - OTHER CHRONIC PAIN Status: Acute Priority: High Current Visit: No Qualifiers: Back pain laterality: midline Sciatica presence: without sciatica Qualified Code(s): M54.5 - Low back pain; G89.29 - Other chronic pain (2) Alcohol intoxication SNOMED Code(s): 46924539 Code(s): F10.929 - ALCOHOL USE, UNSPECIFIED WITH INTOXICATION, UNSPECIFIED Status: Acute Priority: High Current Visit: Yes Qualifiers: Complication of substance-induced condition: with unspecified complication Qualified Code(s): F10.929 - Alcohol use, unspecified with intoxication, unspecified (3) Alcohol dependence SNOMED Code(s): 75322608 Code(s): F10.20 - ALCOHOL DEPENDENCE, UNCOMPLICATED Status: Acute Priority: High Current Visit: Yes Qualifiers: Substance use status: unspecified alcohol-induced disorder Qualified Code(s): F10.29 - Alcohol dependence with unspecified alcohol-induced disorder (4) Chronic pain SNOMED Code(s): 97318562 Code(s): G89.29 - OTHER CHRONIC PAIN Status: Chronic Priority: High Current Visit: Yes Qualifiers: Chronic pain type: chronic pain syndrome Qualified Code(s): G89.4 - Chronic pain syndrome (5) Lumbar stenosis without neurogenic claudication SNOMED Code(s): 47978704 Code(s): M48.061 - SPINAL STENOSIS, LUMBAR REGION WITHOUT NEUROGENIC ÁLVARO Status: Chronic Priority: High Current Visit: No (6) Lumbar disc herniation with radiculopathy SNOMED Code(s): 079990641 Code(s): M51.16 - INTERVERTEBRAL DISC DISORDERS W RADICULOPATHY, LUMBAR REGION Status: Chronic Priority: High Current Visit: No - My Orders Last 24 Hours: My Active Orders 06/01/20 20:41 Cervical Spine wo Cont [CT] Stat Head wo Cont [CT] Stat Lumbar Spine 2 or 3V [CR] Stat Thoracic Spine 2V [CR] Stat - Assessment/Plan Last 24 Hours: My Active Orders 06/01/20 20:41 Cervical Spine wo Cont [CT] Stat Head wo Cont [CT] Stat Lumbar Spine 2 or 3V [CR] Stat Thoracic Spine 2V [CR] Stat Plan: You should follow-up with your neurosurgeon for your upcoming spinal injection. At this time, additional pain medication is not warranted especially with the continued use of alcohol. Follow-up with your primary care provider to determine if you need a change in medication for your chronic pain.
[2020-06-01] MEDS ORDERED: Ketorolac 30 MG/ML SDV IM ONE (20:56)
--- NOTE | 2020-06-01 22:40 | CRLCT ---
INDICATION: Fall. Pain TECHNIQUE: CT head without contrast. COMPARISON: 11/11/2019 FINDINGS: A large right craniectomy is again seen. Again noted is cortical volume loss for age. The ventricles are stable. There is no mass effect or midline shift. Again seen are areas of encephalomalacia in the paramedian right frontoparietal region and the posteromedial right occipital lobe, as well as a small focus of subcortical encephalomalacia in the lateral right frontoparietal region. There is no loss of cannon-white differentiation. There is no evidence of an acute intracranial hemorrhage. No acute calvarial fracture is seen. The visualized paranasal sinuses and mastoid air cells are clear. The visualized orbits are stable. IMPRESSION: Stable appearance of the brain. No evidence of an acute intracranial hemorrhage, mass effect or loss of cannon-white differentiation. A large right craniectomy and areas of chronic encephalomalacia again seen. Dictated by Cory Luna MD @ 06/01/2020 10:39:02 PM Please note that all CT scans at this facility use dose modulation, iterative reconstruction, and/or weight-based dosing when appropriate to reduce radiation dose to as low as reasonably achievable. Dictated by: Cory Luna MD @ 06/01/2020 22:39:08 (Electronically Signed)
--- NOTE | 2020-06-01 22:48 | CRLCT ---
INDICATION: Fall. Pain TECHNIQUE: CT cervical spine without contrast. COMPARISON: 09/16/2019 FINDINGS: There is straightening of the cervical lordosis. The craniocervical and atlantoaxial alignments are near anatomical. There is no evidence of an acute cervical spine fracture. There is no significant precervical soft tissue swelling. Degenerative changes are again seen in the mid and lower cervical spine. IMPRESSION: No evidence of acute cervical spine fracture. Dictated by Cory Luna MD @ 06/01/2020 10:46:57 PM Please note that all CT scans at this facility use dose modulation, iterative reconstruction, and/or weight-based dosing when appropriate to reduce radiation dose to as low as reasonably achievable. Dictated by: Cory Luna MD @ 06/01/2020 22:48:31 (Electronically Signed)
--- NOTE | 2020-06-02 10:48 | CR ---
Thoracic Spine 2V, Lumbar Spine 2 or 3V CLINICAL HISTORY: Fall, back pain FINDINGS: Thoracic vertebral body heights are maintained. There is some mild disc space narrowing and some minimal spondylosis. There is a minimal levoscoliosis. Lumbar vertebral body heights are maintained. There is disc space narrowing at L4-5 and L5-S1 with accompanying spondylosis. There is some osteoarthropathy in the lower lumbar facets IMPRESSION: No acute fracture Degenerative disc changes with spondylosis Mild thoracic levoscoliosis
== END 2020-06-01 22:58 | disposition home or self-care (01) ==
LOC: JP.ED 19:46
DX: M48.061 Spinal stenosis, lumbar region without neurogenic claudication (principal); M51.06 Intervertebral disc disorders with myelopathy, lumbar region; F10.229 Alcohol dependence with intoxication, unspecified; G89.4 Chronic pain syndrome; I25.10 Atherosclerotic heart disease of native coronary artery without angina pectoris; I25.2 Old myocardial infarction; K76.6 Portal hypertension; J45.909 Unspecified asthma, uncomplicated; K21.9 Gastro-esophageal reflux disease without esophagitis; F41.9 Anxiety disorder, unspecified; F32.9 Major depressive disorder, single episode, unspecified; F17.210 Nicotine dependence, cigarettes, uncomplicated; Z91.018 Allergy to other foods; Z88.8 Allergy status to other drugs, medicaments and biological substances; Z79.899 Other long term (current) drug therapy; Z90.89 Acquired absence of other organs; Z90.49 Acquired absence of other specified parts of digestive tract
CPT/HCPCS: 36415; 70450; 72070; 72100; 72125; 80053; 80307; 85025; 96372; 99284; J1885; 99283

== ENCOUNTER 2020-06-12 05:13 | Emergency (ER) | payer MEDICAID ==
[2020-06-12] MEDS ORDERED: Sodium Chloride 0.9% 1,000 ML IV STA (05:37)
[2020-06-12] MEDS ORDERED: fentaNYL 100 MCG/2 ML SDV IVPUSH ONE (05:39)
[2020-06-12] MEDS ORDERED: fentaNYL 100 MCG/2 ML SDV ONE (05:44)
--- NOTE | 2020-06-12 05:44 | EDM.PDOC ---
ED HPI GENERAL MEDICAL PROBLEM - General Chief Complaint: Abdominal Pain Stated Complaint: ABD PAIN VIA [facility] Time Seen by Provider: 06/12/20 05:33 Source of Information: Reports: Patient, EMS, RN Notes Reviewed History Limitations: Reports: No Limitations - History of Present Illness INITIAL COMMENTS - FREE TEXT/NARRATIVE: 45-year-old female presents emergency department a complaint of abdominal pain with distention, she states she was awoke from sleep about an hour prior sudden onset of right upper quadrant pain with abdominal distention no nausea no vomiting states she is having regular bowel movements she has had surgeries in the past including gallbladder. 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 Right Upper Abdomen Pain Score (Numeric/FACES): 7 - Related Data Allergies Allergy/AdvReac Type Severity Reaction Status Date / Time Fish Containing Products Allergy Severe Airway Verified 06/12/20 05:18 Tightness ziprasidone [From Geodon] Allergy Severe Airway Verified 06/12/20 05:18 Tightness tree nut Allergy Hives Verified 06/12/20 05:18 lamotrigine [From Lamictal] AdvReac Leg Cramps Verified 06/12/20 05:18 msg Allergy Hives Uncoded 06/12/20 05:18 Home Meds: Home Meds Cyanocobalamin (Vitamin B-12) [B-12] 250 mcg PO DAILY 07/29/17 [History] Gabapentin [Neurontin] 200 mg PO BID 07/29/17 [History] Lactulose 30 ml PO TID 07/29/17 [History] levETIRAcetam [Keppra] 500 mg PO BID 07/29/17 [History] Omeprazole 20 mg PO BID 10/19/17 [History] Cholecalciferol (Vitamin D3) [Vitamin D3] 1 tab PO DAILY 09/16/19 [History] Folic Acid 1 mg PO DAILY 09/16/19 [History] Albuterol Sulfate [Proventil Hfa] 6.7 gm IH Q4H 09/29/19 [History] Albuterol [Proventil Neb Soln] 2.5 mg INH Q4H PRN 09/29/19 [History] Ferrous Gluconate 324 mg PO DAILY 09/29/19 [History] Furosemide 40 mg PO DAILY 09/29/19 [History] Multivit with Minerals No.55 [Centrum Flavor Burst Adult] 1 tab PO DAILY 09/29/19 [History] Nitroglycerin [Nitrostat] 0.4 mg SL ASDIRECTED PRN 09/29/19 [History] Rifaximin [Xifaxan] 550 mg PO BID 09/29/19 [History] Spironolactone [Aldactone] 100 mg PO DAILY 09/29/19 [History] Thiamine [Vitamin B-1] 1 tab PO DAILY 09/29/19 [History] hydrOXYzine HCL [Hydroxyzine HCl] 100 mg PO TID 09/29/19 [History] oxyCODONE 5 mg PO Q6H PRN 09/29/19 [History] Meclizine [Antivert] 0 mg PO TID 11/28/19 [History] Sucralfate [Carafate] 1 gm PO BEDTIME 40 Days #40 tablet 03/27/20 [Rx] Past Medical History HEENT History: Reports: Hard of Hearing, Impaired Vision Cardiovascular History: Reports: CAD, VA, Other (See Below) Other Cardiovascular History: portal hypertension. VA was 2002 Respiratory History: Reports: Asthma Gastrointestinal History: Reports: Cirrhosis, GERD, Other (See Below) Other Gastrointestinal History: ascites, liver disease, cholecystitis, hepatic encephalopathy, stent placed in liver, voices that she is in last stages of liver failure. Genitourinary History: Reports: Renal Calculus, Other (See Below) Other Genitourinary History: urethral stent placed that extends to kidney CERTIFIED ORTHOTIST History: Reports: , Spontaneous , Other (See Below) Other CERTIFIED ORTHOTIST History: Irregular [place] Musculoskeletal History: Reports: Back Pain, Chronic, Fracture, Other (See Below) Other Musculoskeletal History: colar bone, Neurological History: Reports: Brain Injury, CVA, Head Trauma, Seizure, Vertigo, Other (See Below) Other Neuro History: TBI ICH Skull defect Psychiatric History: Reports: Addiction, Anxiety, Depression, Psych Hospitalization(s), Suicide Attempt Hematologic History: Reports: Blood Transfusion(s), Iron Deficiency, Other (See Below) Other Hematologic History: Hypokelemia, hypomagnesemia, hyponatremia Oncologic (Cancer) History: Reports: Cervix - Infectious Disease History Infectious Disease History: Reports: Chicken Pox - Past Surgical History Head Surgeries/Procedures: Reports: None HEENT Surgical History: Reports: Adenoidectomy, Tonsillectomy Cardiovascular Surgical History: Reports: Coronary Artery Bypass Other Cardiovascular Surgeries/Procedures: cabg x 1 Respiratory Surgical History: Reports: None GI Surgical History: Reports: Appendectomy, Cholecystectomy, EGD Female Surgical History: Reports: Cystectomy, Other (See Below) Other Female Surgeries/Procedures: removal of abscess from left breast Neurological Surgical History: Reports: None Musculoskeletal Surgical History: Reports: None, Carpal Tunnel Oncologic Surgical History: Reports: None Dermatological Surgical History: Reports: None Social & Family History - Family History Family Medical History: Noncontributory - Tobacco Use Smoking Status *Q: Current Every Day Smoker Years of Tobacco use: 39 Packs/Tins Daily: 0.2 - Caffeine Use Caffeine Use: Reports: Coffee, Tea Caffeine Use Comment: one cup of coffee and one cup of tea - Recreational Drug Use Recreational Drug Use: No - Living Situation & Occupation Living situation: Reports: Single Occupation: Disabled (lives in Apartment, Sister and Uncle live in same building.) ED ROS GENERAL - Review of Systems Review Of Systems: See Below Constitutional: Reports: No Symptoms HEENT: Reports: No Symptoms Respiratory: Reports: No Symptoms Cardiovascular: Reports: No Symptoms GI/Abdominal: Reports: Abdominal Pain, Distension, Flatus. Denies: Constipation, Diarrhea, Nausea, Vomiting : Reports: No Symptoms ED EXAM, GI/ABD - Physical Exam Exam: See Below Exam Limited By: No Limitations General Appearance: Alert, WD/WN, No Apparent Distress Respiratory/Chest: No Respiratory Distress GI/Abdominal Exam: Normal Bowel Sounds, Soft, Distended, Tender (Right upper quadrant) Course - Vital Signs Last Recorded V/S: Last Vital Signs Temp 97.6 F 06/12/20 05:15 Pulse 63 06/12/20 06:30 Resp 16 06/12/20 06:30 BP 133/68 06/12/20 06:30 Pulse Ox 98 06/12/20 06:30 - Orders/Labs/Meds Orders: Active Orders 24 hr Category Date Time Status Sodium Chloride 0.9% [Normal Saline] 1,000 ml Med 06/12/20 05:37 Active IV .BOLUS Sodium Chloride 0.9% [Normal Saline] 100 ml Med 06/12/20 06:15 Active IV ASDIRECTED Sodium Chloride 0.9% [Normal Saline] 72 ml Med 06/12/20 06:00 Active IV ASDIRECTED Medication Orders Sodium Chloride (Normal Saline) 1,000 mls @ 500 mls/hr IV .BOLUS STA Stop: 06/12/20 07:36 Last Admin: 06/12/20 05:46 Dose: 500 mls/hr Documented by: TEDDY Sodium Chloride (Normal Saline) 72 mls @ 3.2 mls/sec IV ASDIRECTED JOSE Last Admin: 06/12/20 06:22 Dose: 3.2 mls/sec Documented by: ESME Sodium Chloride (Normal Saline) 100 mls @ 3.2 mls/sec IV ASDIRECTED JOSE Labs: Laboratory Tests 06/12/20 06/12/20 06/12/20 Range/Units 05:37 05:49 05:49 WBC 5.8 (4.5-11.0) K/uL RBC 3.98 (3.30-5.50) M/uL Hgb 12.9 (12.0-15.0) g/dL Hct 38.4 (36.0-48.0) % MCV 97 (80-98) fL MCH 32 H (27-31) pg MCHC 34 (32-36) % Plt Count 100 L (150-400) K/uL Neut % (Auto) 39 (36-66) % Lymph % (Auto) 43 (24-44) % [place] % (Auto) 13 H (2-6) % Eos % (Auto) 5 H (2-4) % Baso % (Auto) 1 (0-1) % Sodium 140 (140-148) mmol/L Potassium 3.1 L (3.6-5.2) mmol/L Chloride 102 (100-108) mmol/L Carbon Dioxide 33 H (21-32) mmol/L Anion Gap 8.1 (5.0-14.0) mmol/L BUN 20 H D (7-18) mg/dL Creatinine 1.0 (0.6-1.0) mg/dL Est Cr Clr Drug Dosing 62.58 mL/min Estimated GFR (MDRD) 59 L (>60) Glucose 93 (74-106) mg/dL Lactic Acid (0.4-2.0) mmol/L Calcium 9.1 (8.5-10.1) mg/dL Total Bilirubin 0.8 (0.2-1.0) mg/dL AST 24 (15-37) U/L ALT 34 (12-78) U/L Alkaline Phosphatase 93 (46-116) U/L Total Protein 5.9 L (6.4-8.2) g/dL Albumin 2.9 L (3.4-5.0) g/dL Globulin 3.0 (2.3-3.5) g/dL Albumin/Globulin Ratio 1.0 L (1.2-2.2) Lipase 51 L (73-393) U/L Urine Color Yellow (YELLOW) Urine Appearance Slightly cloudy A (CLEAR) Urine pH 6.5 (5.0-8.0) Ur Specific [place] 1.020 (1.008-1.030) Urine Protein Negative (NEGATIVE) mg/dL Urine Glucose (UA) Negative (NEGATIVE) mg/dL Urine Ketones Negative (NEGATIVE) mg/dL Urine Occult Blood Small H (NEGATIVE) Urine Nitrite Negative (NEGATIVE) Urine Bilirubin Negative (NEGATIVE) Urine Urobilinogen 0.2 (0.2-1.0) EU/dL Ur Leukocyte Esterase Trace H (NEGATIVE) Urine RBC 5-10 H (0-5) Urine WBC 5-10 H (0-5) Ur Epithelial Cells Few Amorphous Sediment Not seen Urine Bacteria Moderate Urine Mucus Not seen Ethyl Alcohol mg/dL 06/12/20 06/12/20 Range/Units 05:49 05:49 WBC (4.5-11.0) K/uL RBC (3.30-5.50) M/uL Hgb (12.0-15.0) g/dL Hct (36.0-48.0) % MCV (80-98) fL MCH (27-31) pg MCHC (32-36) % Plt Count (150-400) K/uL Neut % (Auto) (36-66) % Lymph % (Auto) (24-44) % [place] % (Auto) (2-6) % Eos % (Auto) (2-4) % Baso % (Auto) (0-1) % Sodium (140-148) mmol/L Potassium (3.6-5.2) mmol/L Chloride (100-108) mmol/L Carbon Dioxide (21-32) mmol/L Anion Gap (5.0-14.0) mmol/L BUN (7-18) mg/dL Creatinine (0.6-1.0) mg/dL Est Cr Clr Drug Dosing mL/min Estimated GFR (MDRD) (>60) Glucose (74-106) mg/dL Lactic Acid 0.6 (0.4-2.0) mmol/L Calcium (8.5-10.1) mg/dL Total Bilirubin (0.2-1.0) mg/dL AST (15-37) U/L ALT (12-78) U/L Alkaline Phosphatase (46-116) U/L Total Protein (6.4-8.2) g/dL Albumin (3.4-5.0) g/dL Globulin (2.3-3.5) g/dL Albumin/Globulin Ratio (1.2-2.2) Lipase (73-393) U/L Urine Color (YELLOW) Urine Appearance (CLEAR) Urine pH (5.0-8.0) Ur Specific [place] (1.008-1.030) Urine Protein (NEGATIVE) mg/dL Urine Glucose (UA) (NEGATIVE) mg/dL Urine Ketones (NEGATIVE) mg/dL Urine Occult Blood (NEGATIVE) Urine Nitrite (NEGATIVE) Urine Bilirubin (NEGATIVE) Urine Urobilinogen (0.2-1.0) EU/dL Ur Leukocyte Esterase (NEGATIVE) Urine RBC (0-5) Urine WBC (0-5) Ur Epithelial Cells Amorphous Sediment Urine Bacteria Urine Mucus Ethyl Alcohol < 3 mg/dL Meds: Medications Generic Name Dose Route Start Last Admin Trade Name Freq PRN Reason Stop Dose Admin Sodium Chloride 1,000 mls @ 500 mls/hr 06/12/20 05:37 06/12/20 05:46 Normal Saline IV 06/12/20 07:36 500 mls/hr .BOLUS STA Administration Sodium Chloride 72 mls @ 3.2 mls/sec 06/12/20 06:00 06/12/20 06:22 Normal Saline IV 3.2 mls/sec ASDIRECTED JOSE Administration Sodium Chloride 100 mls @ 3.2 mls/sec 06/12/20 06:15 Normal Saline IV ASDIRECTED JOSE Discontinued Medications Generic Name Dose Route Start Last Admin Trade Name Freq PRN Reason Stop Dose Admin Fentanyl 50 mcg 06/12/20 05:39 06/12/20 05:47 Sublimaze IVPUSH 06/12/20 05:40 50 mcg ONETIME ONE Administration Iopamidol 100 ml 06/12/20 06:00 Isovue-300 (61%) IV 06/12/20 06:01 . DIRECTED ONE Iopamidol 100 ml 06/12/20 06:01 06/12/20 06:22 Isovue-300 (61%) IV 06/12/20 06:02 100 ml . DIRECTED ONE Administration Departure - Departure Time of Disposition: 06:56 Disposition: Home, Self-Care 01 Condition: Poor Clinical Impression: Abdominal pain Qualifiers: Abdominal location: right upper quadrant Qualified Code(s): R10.11 - Right upper quadrant pain - Discharge Information Instructions: Abdominal Pain, Adult, [id number], Abdominal Pain, Adult Referrals: PCP,None [Primary Care Provider] - Forms: ED Department Discharge Additional Instructions: Continue with your regular medications, keep your follow-up appointment with your primary care next week, call return to the emergency department worsening of symptoms Sepsis Event Note (ED) - Evaluation Sepsis Screening Result: No Definite Risk - Focused Exam Vital Signs: Vital Signs Temp Pulse Resp BP Pulse Ox 06/12/20 06:30 63 16 133/68 98 06/12/20 05:15 97.6 F 64 16 122/66 94 L - My Orders Last 24 Hours: My Active Orders 06/12/20 05:37 Sodium Chloride 0.9% [Normal Saline] 1,000 ml IV .BOLUS 06/12/20 06:00 Sodium Chloride 0.9% [Normal Saline] 72 ml IV ASDIRECTED 06/12/20 06:15 Sodium Chloride 0.9% [Normal Saline] 100 ml IV ASDIRECTED - Assessment/Plan Last 24 Hours: My Active Orders 06/12/20 05:37 Sodium Chloride 0.9% [Normal Saline] 1,000 ml IV .BOLUS 06/12/20 06:00 Sodium Chloride 0.9% [Normal Saline] 72 ml IV ASDIRECTED 06/12/20 06:15 Sodium Chloride 0.9% [Normal Saline] 100 ml IV ASDIRECTED Plan: Assessment Acuity = acute Site and laterality = abdominal pain complicated patient with known history of liver cirrhosis and ascites Etiology = unknown Manifestations = none Location of injury = Home Lab values = CBC unremarkable potassium low at 3.1 consistent hypokalemia albumin low at 2.[address] scan describes no acute process Plan She remained pain-free while in the emergency department I did review lab work CT scan results with her she has a follow-up appointment with her primary care next week, call or return to the emergency department for worsening of symptoms This note was dictated using ulike voice recognition software please call with any questions on syntax or grammar.
[2020-06-12] MEDS ORDERED: Iopamidol 612 MG/ML 100 ML Bottle IV ONE ×2 (06:00→06:01)
[2020-06-12] MEDS ORDERED: Sodium Chloride 0.9% 100 ML IV SCH (06:15)
--- NOTE | 2020-06-12 06:51 | CRLCT ---
HISTORY: Right upper quadrant abdominal pain. Abdominal distention. TECHNIQUE: Intravenous contrast enhanced CT of the abdomen and pelvis. 100 mL of Isovue-300 intravenous contrast administered. COMPARISON: 02/10/2020. FINDINGS: Cirrhotic liver. There is a TIPS catheter which appears patent. No liver mass seen. Prior cholecystectomy. Dilatation of the extrahepatic bile duct as before may reflect postcholecystectomy reservoir effect changes. Spleen size is within normal limits. Adrenal glands are normal. No focal pancreatic abnormality. On the left, there are areas of renal cortical parenchymal volume loss compatible with remote insult. Nonobstructive calculus within the inferior pole collecting system left kidney as before. No hydronephrosis. No obstructive urinary calculus. Urinary bladder is nondistended. - No small bowel obstruction. No diverticulitis. No fluid collection or free intraperitoneal air. No abdominal aortic aneurysm. - Mild subpleural atelectasis. No consolidation or pleural effusion. Patient is status post sternotomy. - Degenerative changes of the spine. No acute fractures. Degenerative changes of the hips. IMPRESSION: 1. No specific identified cause of the patient`s abdominal pain. 2. Cirrhotic liver. Patent TIPS catheter. No liver mass seen. No ascites. 3. Prior cholecystectomy. Prominent dilatation of the extrahepatic bile duct may relate to postcholecystectomy reservoir effect. 4. Areas of renal cortical parenchymal volume loss the left compatible with remote insult. 5. No bowel obstruction, diverticulitis or fluid collection. Dictated by Kieran Hoang MD @ 06/12/2020 6:49:27 AM Please note that all CT scans at this facility use dose modulation, iterative reconstruction, and/or weight-based dosing when appropriate to reduce radiation dose to as low as reasonably achievable. Dictated by: Kieran Hoang MD @ 06/12/2020 06:49:47 (Electronically Signed)
== END 2020-06-12 07:07 | disposition home or self-care (01) ==
LOC: JP.ED 05:13
DX: R10.11 Right upper quadrant pain (principal); I25.10 Atherosclerotic heart disease of native coronary artery without angina pectoris; I25.2 Old myocardial infarction; K21.9 Gastro-esophageal reflux disease without esophagitis; F17.210 Nicotine dependence, cigarettes, uncomplicated; Z95.1 Presence of aortocoronary bypass graft; Z91.013 Allergy to seafood; Z88.8 Allergy status to other drugs, medicaments and biological substances; Z91.018 Allergy to other foods; Z91.048 Other nonmedicinal substance allergy status; Z79.899 Other long term (current) drug therapy
CPT/HCPCS: 36415; 74177; 80053; 80307; 81001; 83605; 83690; 85025; 96361; 96374; 99285; J3010; J7030; J7050; Q9967; 99284

== ENCOUNTER 2020-07-01 17:22 | Emergency (ER) | payer MEDICAID ==
--- NOTE | 2020-07-01 18:11 | EDM.PDOC ---
ED HPI GENERAL MEDICAL PROBLEM - General Chief Complaint: General Stated Complaint: MEDICAL [facility]IA [facility] Time Seen by Provider: 07/01/20 17:47 - History of Present Illness INITIAL COMMENTS - FREE TEXT/NARRATIVE: Cris is a 45-year-old female who presents via [facility] for evaluation of pain after allegedly having a fall while intoxicated tonight. Patient is known to me from a previous evaluation last month with the same modus operandi. She has a longstanding history of alcoholism, advanced liver cirrhosis, and recurrent falls while intoxicated. Immediately upon transferring over to the [facility], she began requesting narcotic pain medication for her back pain. Patient is on oxycodone 5 mg every 4 hours and does have a history of opiate dependence and sometimes abuse. When nursing did not immediately give her a narcotic medication, the patient became belligerent saying "well I will just F*cking crawl out of this place then." When interviewing the patient, she states that her legs gave out today causing her to fall and resulting in her striking her "soft spot" on the ground causing disorientation and headache. The patient will not admit to being intoxicated or imbibing today. She is on chronic oxycodone for her chronic back pain and states that she has an upcoming procedure on July 16 to ligate a lumbar nerve root. She does state that her leg pain causes her to fall and at times causes incontinence of urine and stool. Onset: Today Location: Reports: Back, Generalized Quality: Reports: Ache Severity: Moderate (Chronic) Improves with: Reports: None Worsens with: Reports: Medication Context: Reports: Other (Fall while intoxicated) Associated Symptoms: Reports: No Other Symptoms Back Pain Score (Numeric/FACES): 9 - Related Data Allergies Allergy/AdvReac Type Severity Reaction Status Date / Time Fish Containing Products Allergy Severe Airway Verified 07/01/20 18:10 Tightness ziprasidone [From Geodon] Allergy Severe Airway Verified 07/01/20 18:10 Tightness tree nut Allergy Hives Verified 07/01/20 18:10 lamotrigine [From Lamictal] AdvReac Leg Cramps Verified 07/01/20 18:10 msg Allergy Hives Uncoded 07/01/20 18:10 Home Meds: Home Meds Cyanocobalamin (Vitamin B-12) [B-12] 250 mcg PO DAILY 07/29/17 [History] Gabapentin [Neurontin] 200 mg PO BID 07/29/17 [History] Lactulose 30 ml PO TID 07/29/17 [History] levETIRAcetam [Keppra] 500 mg PO BID 07/29/17 [History] Omeprazole 20 mg PO BID 10/19/17 [History] Cholecalciferol (Vitamin D3) [Vitamin D3] 1 tab PO DAILY 09/16/19 [History] Folic Acid 1 mg PO DAILY 09/16/19 [History] Albuterol Sulfate [Proventil Hfa] 6.7 gm IH Q4H 09/29/19 [History] Albuterol [Proventil Neb Soln] 2.5 mg INH Q4H PRN 09/29/19 [History] Ferrous Gluconate 324 mg PO DAILY 09/29/19 [History] Furosemide 40 mg PO DAILY 09/29/19 [History] Nitroglycerin [Nitrostat] 0.4 mg SL ASDIRECTED PRN 09/29/19 [History] Rifaximin [Xifaxan] 550 mg PO BID 09/29/19 [History] Spironolactone [Aldactone] 100 mg PO DAILY 09/29/19 [History] Thiamine [Vitamin B-1] 1 tab PO DAILY 09/29/19 [History] hydrOXYzine HCL [Hydroxyzine HCl] 100 mg PO TID 09/29/19 [History] oxyCODONE 10 mg PO Q4H PRN 09/29/19 [History] Meclizine [Antivert] 0 mg PO TID 11/28/19 [History] Sucralfate [Carafate] 1 gm PO BEDTIME 40 Days #40 tablet 03/27/20 [Rx] Past Medical History HEENT History: Reports: Hard of Hearing, Impaired Vision Cardiovascular History: Reports: CAD, NH, Other (See Below) Other Cardiovascular History: portal hypertension. NH was 2002 Respiratory History: Reports: Asthma Gastrointestinal History: Reports: Cirrhosis, GERD, Other (See Below) Other Gastrointestinal History: ascites, liver disease, cholecystitis, hepatic encephalopathy, stent placed in liver, voices that she is in last stages of liver failure. Genitourinary History: Reports: Renal Calculus, Other (See Below) Other Genitourinary History: urethral stent placed that extends to kidney SECURITY STRATEGIST History: Reports: , Spontaneous , Other (See Below) Other SECURITY STRATEGIST History: Irregular [place] Musculoskeletal History: Reports: Back Pain, Chronic, Fracture, Other (See Below) Other Musculoskeletal History: colar bone, Neurological History: Reports: Brain Injury, CVA, Head Trauma, Seizure, Vertigo, Other (See Below) Other Neuro History: TBI ICH Skull defect Psychiatric History: Reports: Addiction, Anxiety, Depression, Psych Hospitalization(s), Suicide Attempt Hematologic History: Reports: Blood Transfusion(s), Iron Deficiency, Other (See Below) Other Hematologic History: Hypokelemia, hypomagnesemia, hyponatremia Oncologic (Cancer) History: Reports: Cervix - Infectious Disease History Infectious Disease History: Reports: Chicken Pox - Past Surgical History Head Surgeries/Procedures: Reports: None HEENT Surgical History: Reports: Adenoidectomy, Tonsillectomy Cardiovascular Surgical History: Reports: Coronary Artery Bypass Other Cardiovascular Surgeries/Procedures: cabg x 1 Respiratory Surgical History: Reports: None GI Surgical History: Reports: Appendectomy, Cholecystectomy, EGD Female Surgical History: Reports: Cystectomy, Other (See Below) Other Female Surgeries/Procedures: removal of abscess from left breast Neurological Surgical History: Reports: None Musculoskeletal Surgical History: Reports: None, Carpal Tunnel Oncologic Surgical History: Reports: None Dermatological Surgical History: Reports: None Social & Family History - Family History Family Medical History: Noncontributory - Caffeine Use Caffeine Use: Reports: Coffee, Tea Caffeine Use Comment: one cup of coffee and one cup of tea - Living Situation & Occupation Living situation: Reports: Single Occupation: Disabled (lives in Apartment, Sister and Uncle live in same building.) ED ROS GENERAL - Review of Systems Review Of Systems: See Below Constitutional: Reports: Weakness HEENT: Reports: No Symptoms Respiratory: Reports: No Symptoms Cardiovascular: Reports: No Symptoms Endocrine: Reports: No Symptoms GI/Abdominal: Reports: Abdominal Pain Musculoskeletal: Reports: Neck Pain (Chronic neck pain), Back Pain (Chronic lumbar pain), Muscle Pain Skin: Reports: No Symptoms Neurological: Reports: Headache (Acute after allegedly striking her head on the ground today after the fall. Patient denies loss of consciousness.), Difficulty Walking (Chronic), Weakness (Chronic) Psychiatric: Reports: Agitation, Anxiety, Mood Lability Hematologic/Lymphatic: Reports: No Symptoms Immunologic: Reports: No Symptoms ED EXAM, GENERAL - Physical Exam Exam: See Below Exam Limited By: Intoxication General Appearance: Anxious, Mild Distress Eye Exam: Bilateral Eye: EOMI, Nystagmus (Horizontal nystagmus), PERRL Ears: Normal External Exam, Normal Canal, Hearing Grossly Normal, Normal TMs Nose: Normal Inspection, Normal Mucosa, No Blood Throat/Mouth: Normal Inspection, Normal Lips, Normal Teeth, Normal Gums, Normal Oropharynx, Normal Voice, No Airway Compromise Head: Normocephalic (Except for the deficit in the skull from prior surgery.) Neck: Normal Inspection, Supple, Full Range of Motion, Tender Lateral (Per patient. There is no detectable spasm and when not prompted the patient moves her neck fine.) Respiratory/Chest: No Respiratory Distress, Lungs Clear, Normal Breath Sounds, No Accessory Muscle Use, Other (Patient reports that she is tender pretty much everywhere I touch on her body.) Cardiovascular: Normal Peripheral Pulses, Regular Rate, Rhythm, No Edema, No Gallop, No JVD, No Murmur, No Rub Peripheral Pulses: 2+: Radial (L), Radial (R), Posterior Tibial (L), Posterior Tibial (R), Dorsalis Pedis (L), Dorsalis Pedis (R) GI/Abdominal: Normal Bowel Sounds, Soft, No Organomegaly, No Distention, No Abnormal Bruit, No Mass, Tender Back Exam: Paraspinal Tenderness (For the most part her entire spine), Vertebral Tenderness (For the most part her entire spine) Extremities: Normal Inspection, Normal Range of Motion, No Pedal Edema, Other (Tender primarily everywhere I touch. No withdrawal to pain.) Neurological: Alert, CN II-XII Intact, Normal Reflexes, Disoriented, Slow to Respond, Sensory/Motor Deficit (Slight decrease in motor strength in the left lower extremity. Son clear whether this is true weakness versus malingering.) Psychiatric: Anxious, Tearful Lymphatic: No Adenopathy Course - Vital Signs Last Recorded V/S: Last Vital Signs Temp 36.9 C 07/01/20 18:09 Pulse 70 07/01/20 18:09 Resp 16 07/01/20 18:09 BP 107/75 07/01/20 18:09 Pulse Ox 96 07/01/20 18:09 - Orders/Labs/Meds Labs: Laboratory Tests 07/01/20 07/01/2020 Range/Units 18:02 18:02 18:02 WBC 7.3 (4.5-11.0) K/uL RBC 4.22 (3.30-5.50) M/uL Hgb 13.5 (12.0-15.0) g/dL Hct 39.4 (36.0-48.0) % MCV 93 (80-98) fL MCH 32 H (27-31) pg MCHC 34 (32-36) % Plt Count 137 L (150-400) K/uL Neut % (Auto) 45 (36-66) % Lymph % (Auto) 40 (24-44) % [place] % (Auto) 13 H (2-6) % Eos % (Auto) 2 (2-4) % Baso % (Auto) 1 (0-1) % PT 12.2 H (9.5-12.0) sec INR 1.12 (0.80-1.20) APTT 26.5 L (27.0-36.0) sec Sodium 149 H (140-148) mmol/L Potassium 2.9 L* (3.6-5.2) mmol/L Chloride 114 H (100-108) mmol/L Carbon Dioxide 23 (21-32) mmol/L Anion Gap 14.9 H (5.0-14.0) mmol/L BUN 9 D (7-18) mg/dL Creatinine 0.9 (0.6-1.0) mg/dL Est Cr Clr Drug Dosing 61.12 mL/min Estimated GFR (MDRD) > 60 (>60) Glucose 88 (74-106) mg/dL Calcium 9.0 (8.5-10.1) mg/dL Total Bilirubin 0.9 (0.2-1.0) mg/dL AST 42 H (15-37) U/L ALT 41 (12-78) U/L Alkaline Phosphatase 159 H (46-116) U/L Total Protein 6.7 (6.4-8.2) g/dL Albumin 3.2 L (3.4-5.0) g/dL Globulin 3.5 (2.3-3.5) g/dL Albumin/Globulin Ratio 0.9 L (1.2-2.2) Lipase 180 (73-393) U/L Ethyl Alcohol mg/dL 07/01/20 Range/Units 18:02 WBC (4.5-11.0) K/uL RBC (3.30-5.50) M/uL Hgb (12.0-15.0) g/dL Hct (36.0-48.0) % MCV (80-98) fL MCH (27-31) pg MCHC (32-36) % Plt Count (150-400) K/uL Neut % (Auto) (36-66) % Lymph % (Auto) (24-44) % [place] % (Auto) (2-6) % Eos % (Auto) (2-4) % Baso % (Auto) (0-1) % PT (9.5-12.0) sec INR (0.80-1.20) APTT (27.0-36.0) sec Sodium (140-148) mmol/L Potassium (3.6-5.2) mmol/L Chloride (100-108) mmol/L Carbon Dioxide (21-32) mmol/L Anion Gap (5.0-14.0) mmol/L BUN (7-18) mg/dL Creatinine (0.6-1.0) mg/dL Est Cr Clr Drug Dosing mL/min Estimated GFR (MDRD) (>60) Glucose (74-106) mg/dL Calcium (8.5-10.1) mg/dL Total Bilirubin (0.2-1.0) mg/dL AST (15-37) U/L ALT (12-78) U/L Alkaline Phosphatase (46-116) U/L Total Protein (6.4-8.2) g/dL Albumin (3.4-5.0) g/dL Globulin (2.3-3.5) g/dL Albumin/Globulin Ratio (1.2-2.2) Lipase (73-393) U/L Ethyl Alcohol 189 mg/dL Cris has a potassium of 2.9. We will give her K-Karin 40 mEq p.o. to treat her hypokalemia. In addition she has a blood ethanol level of 189. Her albumin is 3.2. She has mild elevation of her alkaline phosphatase as well as her ALT. Her CBC is otherwise normal. PT and PTT are within normal limits. Meds: Medications Discontinued Medications Generic Name Dose Route Start Last Admin Trade Name Joseq PRN Reason Stop Dose Admin Ketorolac Tromethamine 30 mg 07/01/20 18:19 07/01/20 18:32 Toradol IM 07/01/20 18:20 30 mg ONETIME ONE Administration Potassium Chloride 40 meq 07/01/20 18:32 07/01/20 18:39 Klor-Con M20 PO 07/01/20 18:33 40 meq ONETIME ONE Administration - Radiology Interpretation Free Text/Narrative:: CT head without contrast Findings: Again seen is a large right craniotomy. Cortical volume loss for age is again noted. The ventricles are stable. There is no mass-effect or midline shift. Areas of encephalomalacia are again seen in the paramedian right frontal parietal region and the posterior medial right occipital lobe, as well as a small focus of subcortical encephalomalacia in the lateral right frontoparietal region. There is no loss of graywhite differentiation. There is no evidence for acute intracranial hemorrhage. No acute calvarial fracture is seen. The visible para sinuses and mastoid air cells are clear. Visualized orbits are stable. Impression: Stable appearance of the brain. No evidence for acute intracranial hemorrhage, mass-effect or loss of graywhite differentiation. Chronic and postsurgical findings again noted as above. Dictated by Cory Luna MD at 07/01/2020 7:[address] Results Date: 07/01/20 CT Results Time: 19:20 - Re-Assessments/Exams Free Text/Narrative Re-Assessment/Exam: 07/01/20 19:29 patient remained stable and pain is improved after receiving Toradol 30 mg IM. Her work-up shows that she does have alcohol on board with the blood alcohol of 189. Although she states that she has disorientation, she is able to have a normal conversation with this level of alcohol. At this time, I think the patient has returned to her baseline. She should follow-up with her primary provider concerning her ongoing issues with her lumbar spine. I have no acute therapies to offer her for this chronic problem and it appears that she is scheduled for July 16 to have a lumbar rhizotomy. Departure - Departure Time of Disposition: 19:47 Disposition: Home, Self-Care 01 Condition: Fair Clinical Impression: Bulging of intervertebral disc between L4 and L5, ETOH abuse, Lumbar disc herniation with myelopathy, Lumbar disc herniation with radiculopathy Alcohol dependence Qualifiers: Substance use status: unspecified alcohol-induced disorder Qualified Code(s): F10.29 - Alcohol dependence with unspecified alcohol-induced disorder Alcohol intoxication Qualifiers: Complication of substance-induced condition: with unspecified complication Qualified Code(s): F10.929 - Alcohol use, unspecified with intoxication, unspecified Chronic low back pain Qualifiers: Back pain laterality: midline Sciatica presence: without sciatica Qualified Code(s): M54.5 - Low back pain; G89.29 - Other chronic pain Fall from standing Qualifiers: Encounter type: initial encounter Qualified Code(s): W19.XXXA - Unspecified fall, initial encounter - Discharge Information *PRESCRIPTION DRUG MONITORING PROGRAM REVIEWED*: Yes *COPY OF PRESCRIPTION DRUG MONITORING REPORT IN PATIENT NOMAN: No Instructions: Alcohol Use Disorder, Chronic Back Pain, [id number], Alcohol Abuse and Dependence Information, Adult, Lumbosacral Radiculopathy Referrals: PCP,None [Primary Care Provider] - Forms: ED Department Discharge Care Plan Goals: Follow-up with your primary provider who is been managing your chronic back pain to discuss other options. You may also consult with them about the possibility of physical therapy for fall prevention and gait stability exercises. Given the increased frequency of falls, your primary provider may instruct you when to go to a skilled care facility to reduce your recurrent fall risk. Sepsis Event Note (ED) - Focused Exam Vital Signs: Vital Signs Temp Pulse Resp BP Pulse Ox 07/01/20 18:09 36.9 C 70 16 107/75 96
[2020-07-01] MEDS ORDERED: Ketorolac 30 MG/ML SDV IM ONE (18:19)
[2020-07-01] MEDS ORDERED: Potassium Chloride 20 MEQ Tab.ER PO ONE (18:32)
--- NOTE | 2020-07-01 19:22 | CRLCT ---
INDICATION: Fall. Injury TECHNIQUE: CT head without contrast. COMPARISON: 06/01/2020 FINDINGS: Again seen is a large right craniectomy. Cortical volume loss for age is again noted. The ventricles are stable. There is no mass effect or midline shift. Areas of encephalomalacia are again seen in the paramedian right frontoparietal region and the posteromedial right occipital lobe, as well as a small focus of subcortical encephalomalacia in the lateral right frontoparietal region. There is no loss of cannon-white differentiation. There is no evidence of an acute intracranial hemorrhage. No acute calvarial fracture is seen. The visualized paranasal sinuses and mastoid air cells are clear. The visualized orbits are stable. IMPRESSION: Stable appearance of the brain. No evidence of an acute intracranial hemorrhage, mass effect or loss of cannon-white differentiation. Chronic and postsurgical findings again noted, as above. Dictated by Cory Luna MD @ 07/01/2020 7:20:15 PM Please note that all CT scans at this facility use dose modulation, iterative reconstruction, and/or weight-based dosing when appropriate to reduce radiation dose to as low as reasonably achievable. Dictated by: Cory Luna MD @ 07/01/2020 19:20:30 (Electronically Signed)
== END 2020-07-01 21:43 | disposition home or self-care (01) ==
LOC: JP.ED 17:22
DX: M51.16 Intervertebral disc disorders with radiculopathy, lumbar region (principal); M51.06 Intervertebral disc disorders with myelopathy, lumbar region; F10.229 Alcohol dependence with intoxication, unspecified; I25.10 Atherosclerotic heart disease of native coronary artery without angina pectoris; I25.2 Old myocardial infarction; J45.909 Unspecified asthma, uncomplicated; K21.9 Gastro-esophageal reflux disease without esophagitis; F41.9 Anxiety disorder, unspecified; Z91.013 Allergy to seafood; Z88.8 Allergy status to other drugs, medicaments and biological substances; Z91.018 Allergy to other foods; Z86.73 Personal history of transient ischemic attack (TIA), and cerebral infarction without residual deficits; Y90.6 Blood alcohol level of 120-199 mg/100 ml
CPT/HCPCS: 36415; 70450; 80053; 80307; 83690; 85025; 85610; 85730; 96372; 99284; A9270; J1885

== ENCOUNTER 2020-07-03 14:52 | Emergency (ER) | payer MEDICAID ==
[2020-07-03] MEDS ORDERED: Ondansetron 4 MG/2 ML SDV IVPUSH ONE (15:44)
[2020-07-03] MEDS ORDERED: Sodium Chloride 0.9% 10 ML Syringe FLUSH PRN (15:44)
[2020-07-03] MEDS ORDERED: Sodium Chloride 0.9% 10 ML SDV IV STA (15:44)
--- NOTE | 2020-07-03 15:48 | EDM.PDOC ---
ED HPI GENERAL MEDICAL PROBLEM - General Chief Complaint: Gastrointestinal Problem Stated Complaint: MEDICAL VIA NORTH Time Seen by Provider: 07/03/20 15:30 Source of Information: Reports: Patient, RN Notes Reviewed History Limitations: Reports: No Limitations - History of Present Illness INITIAL COMMENTS - FREE TEXT/NARRATIVE: Cris presents today with complaints of nausea, vomiting, diarrhea with chills and sneezing for the past three days. She reports she has been exposed to [employer] workers all week who had mcbride virus. She denies fever, body aches, SOB or other concerns. - Related Data Allergies Allergy/AdvReac Type Severity Reaction Status Date / Time Fish Containing Products Allergy Severe Airway Verified 07/03/20 15:05 Tightness ziprasidone [From Geodon] Allergy Severe Airway Verified 07/03/20 15:05 Tightness tree nut Allergy Hives Verified 07/03/20 15:05 lamotrigine [From Lamictal] AdvReac Leg Cramps Verified 07/03/20 15:05 msg Allergy Hives Uncoded 07/03/20 15:05 Home Meds: Home Meds Cyanocobalamin (Vitamin B-12) [B-12] 250 mcg PO DAILY 07/29/17 [History] Gabapentin [Neurontin] 200 mg PO BID 07/29/17 [History] Lactulose 30 ml PO TID 07/29/17 [History] levETIRAcetam [Keppra] 500 mg PO BID 07/29/17 [History] Omeprazole 20 mg PO BID 10/19/17 [History] Cholecalciferol (Vitamin D3) [Vitamin D3] 1 tab PO DAILY 09/16/19 [History] Folic Acid 1 mg PO DAILY 09/16/19 [History] Albuterol Sulfate [Proventil Hfa] 6.7 gm IH Q4H 09/29/19 [History] Albuterol [Proventil Neb Soln] 2.5 mg INH Q4H PRN 09/29/19 [History] Ferrous Gluconate 324 mg PO DAILY 09/29/19 [History] Furosemide 40 mg PO DAILY 09/29/19 [History] Nitroglycerin [Nitrostat] 0.4 mg SL ASDIRECTED PRN 09/29/19 [History] Rifaximin [Xifaxan] 550 mg PO BID 09/29/19 [History] Spironolactone [Aldactone] 100 mg PO DAILY 09/29/19 [History] Thiamine [Vitamin B-1] 1 tab PO DAILY 09/29/19 [History] hydrOXYzine HCL [Hydroxyzine HCl] 100 mg PO TID 09/29/19 [History] oxyCODONE 10 mg PO Q4H PRN 09/29/19 [History] Meclizine [Antivert] 0 mg PO TID 11/28/19 [History] Sucralfate [Carafate] 1 gm PO BEDTIME 40 Days #40 tablet 03/27/20 [Rx] Past Medical History HEENT History: Reports: Hard of Hearing, Impaired Vision Cardiovascular History: Reports: CAD, [place], Other (See Below) Other Cardiovascular History: portal hypertension. [place] was 2002 Respiratory History: Reports: Asthma Gastrointestinal History: Reports: Cirrhosis, GERD, Other (See Below) Other Gastrointestinal History: ascites, liver disease, cholecystitis, hepatic encephalopathy, stent placed in liver, voices that she is in last stages of liver failure. 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: , Spontaneous , Other (See Below) Other SUPER[employer] History: Irregular [place] Musculoskeletal History: Reports: Back Pain, Chronic, Fracture, Other (See Below) Other Musculoskeletal History: colar bone, Neurological History: Reports: Brain Injury, CVA, Head Trauma, Seizure, Vertigo, Other (See Below) Other Neuro History: TBI ICH Skull defect Psychiatric History: Reports: Addiction, Anxiety, Depression, Psych Hospitalization(s), Suicide Attempt Hematologic History: Reports: Blood Transfusion(s), Iron Deficiency, Other (See Below) Other Hematologic History: Hypokelemia, hypomagnesemia, hyponatremia Oncologic (Cancer) History: Reports: Cervix - Infectious Disease History Infectious Disease History: Reports: Chicken Pox - Past Surgical History Head Surgeries/Procedures: Reports: None HEENT Surgical History: Reports: Adenoidectomy, Tonsillectomy Cardiovascular Surgical History: Reports: Coronary Artery Bypass Other Cardiovascular Surgeries/Procedures: cabg x 1 Respiratory Surgical History: Reports: None GI Surgical History: Reports: Appendectomy, Cholecystectomy, EGD Female Surgical History: Reports: Cystectomy, Other (See Below) Other Female Surgeries/Procedures: removal of abscess from left breast Neurological Surgical History: Reports: None Musculoskeletal Surgical History: Reports: None, Carpal Tunnel Oncologic Surgical History: Reports: None Dermatological Surgical History: Reports: None Social & Family History - Family History Family Medical History: Noncontributory - Tobacco Use Tobacco Use Status *Q: Current Every Day Tobacco User Years of Tobacco use: 20 Packs/Tins Daily: 0.5 - Caffeine Use Caffeine Use: Reports: Coffee, Tea Caffeine Use Comment: one cup of coffee and one cup of tea - Living Situation & Occupation Living situation: Reports: Single Occupation: Disabled (lives in Apartment, Sister and Uncle live in same building.) ED ROS GENERAL - Review of Systems Review Of Systems: See Below Constitutional: Reports: No Symptoms HEENT: Reports: No Symptoms Respiratory: Reports: No Symptoms Cardiovascular: Reports: No Symptoms Endocrine: Reports: No Symptoms GI/Abdominal: Reports: Abdominal Pain, Diarrhea, Distension, Nausea, Vomiting. Denies: Black Stool, Bloody Stool, Constipation, Decreased Appetite, Difficulty Swallowing, Flatus, Hematemesis, Hematochezia, Melena, Mucous in Stool : Reports: No Symptoms Musculoskeletal: Reports: No Symptoms Skin: Reports: No Symptoms Neurological: Reports: No Symptoms Psychiatric: Reports: No Symptoms Hematologic/Lymphatic: Reports: No Symptoms Immunologic: Reports: No Symptoms ED EXAM, GI/ABD - Physical Exam Exam: See Below Exam Limited By: No Limitations General Appearance: Alert, WD/WN, Mild Distress Eyes: Bilateral: Normal Appearance Ears: Normal External Exam, Normal Canal, Hearing Grossly Normal, Normal TMs Nose: Normal Inspection, Normal Mucosa, No Blood Throat/Mouth: Normal Lips, Normal Gums, Normal Voice, No Airway Compromise Head: Atraumatic, Normocephalic Neck: Normal Inspection, Supple, Non-Tender, Full Range of Motion. No: Lymphadenopathy (R), Lymphadenopathy (L) Respiratory/Chest: No Respiratory Distress, Lungs Clear, Normal Breath Sounds, No Accessory Muscle Use, Chest Non-Tender. No: Crackles, Rales, Rhonchi, Wheezing Cardiovascular: Normal Peripheral Pulses, Regular Rate, Rhythm, No Edema, No Gallop, No Murmur, No Rub GI/Abdominal Exam: Normal Bowel Sounds, Soft, No Organomegaly, No Mass, Pelvis Stable, Distended, Tender (generalized) Back Exam: Normal Inspection, Full Range of Motion. No: CVA Tenderness (R), CVA Tenderness (L) Extremities: Normal Inspection, Normal Range of Motion, Non-Tender, No Pedal Edema, Normal Capillary Refill Neurological: Alert, Oriented, Normal Gait, Normal Reflexes, No Motor/Sensory Deficits Psychiatric: Normal Affect, Normal Mood Skin Exam: Warm, Dry, Intact, Normal Color, No Rash Lymphatic: No Adenopathy Course - Vital Signs Last Recorded V/S: Last Vital Signs Temp 37.3 C 07/03/20 15:15 Pulse 86 07/03/20 15:15 Resp 16 07/03/20 15:15 BP 137/68 07/03/20 15:15 Pulse Ox 16 L 07/03/20 15:15 - Orders/Labs/Meds Orders: Active Orders 24 hr Category Date Time Status CORONAVIRUS COVID-19, JOSETTE Routine Lab 07/03/20 16:05 Received Saline Lock Insert [OM.PC] Routine Oth 07/03/20 15:44 Ordered Labs: Laboratory Tests 07/03/20 07/03/20 Range/Units 15:29 15:29 WBC 9.0 (4.5-11.0) K/uL RBC 4.52 (3.30-5.50) M/uL Hgb 14.2 (12.0-15.0) g/dL Hct 42.2 (36.0-48.0) % MCV 93 (80-98) fL MCH 31 (27-31) pg MCHC 34 (32-36) % Plt Count 157 (150-400) K/uL Neut % (Auto) 43 (36-66) % Lymph % (Auto) 44 (24-44) % Latimer % (Auto) 11 H (2-6) % Eos % (Auto) 3 (2-4) % Baso % (Auto) 1 (0-1) % Sodium 144 (140-148) mmol/L Potassium 3.5 L (3.6-5.2) mmol/L Chloride 111 H (100-108) mmol/L Carbon Dioxide 20 L (21-32) mmol/L Anion Gap 16.5 H (5.0-14.0) mmol/L BUN 4 L D (7-18) mg/dL Creatinine 1.0 (0.6-1.0) mg/dL Est Cr Clr Drug Dosing 55.01 mL/min Estimated GFR (MDRD) 59 L (>60) Glucose 113 H (74-106) mg/dL Calcium 8.8 (8.5-10.1) mg/dL Patient lab work reviewed, no significant findings. Improvement of nausea, vomiting after IV hydration and antiemetics. Patient will be discharged to home, follow [id number] quarantine instructions and self care. Meds: Medications Discontinued Medications Generic Name Dose Route Start Last Admin Trade Name Freq PRN Reason Stop Dose Admin Famotidine 20 mg 07/03/20 17:07 07/03/20 17:15 Pepcid IVPUSH 07/03/20 17:08 20 mg ONETIME ONE Administration Ketorolac Tromethamine 30 mg 07/03/20 17:06 07/03/20 17:15 Toradol IVPUSH 07/03/20 17:07 30 mg ONETIME ONE Administration Metoclopramide HCl 5 mg 07/03/20 17:05 07/03/20 17:15 Reglan IVPUSH 07/03/20 17:06 5 mg ONETIME ONE Administration Ondansetron HCl 4 mg 07/03/20 15:44 07/03/20 15:59 Zofran IVPUSH 07/03/20 15:45 4 mg ONETIME ONE Administration Sodium Chloride 10 ml 07/03/20 15:44 07/03/20 15:59 Saline Flush FLUSH 10 ml ASDIRECTED PRN Administration Keep Vein Open Sodium Chloride 1,000 ml 07/03/20 15:44 07/03/20 15:59 Normal Saline IV 07/03/20 15:45 1,000 ml NOW STA Administration - Re-Assessments/Exams Free Text/Narrative Re-Assessment/Exam: 07/03/20 17:05 Patient complaints of ongoing nausea, she can have reglan 5mg IV. Ongoing pain, she can have ketorolac 30mg IV. 07/03/20 17:21 Patient resting on ER bed. 07/03/20 17:28 Patient reports she feels better, lab work reviewed with her. All her questions were answered. Departure - Departure Time of Disposition: 17:31 Disposition: Home, Self-Care 01 Clinical Impression: Nausea & vomiting - Discharge Information *PRESCRIPTION DRUG MONITORING PROGRAM REVIEWED*: Not Applicable *COPY OF PRESCRIPTION DRUG MONITORING REPORT IN PATIENT NOMAN: Not Applicable Instructions: Nausea and Vomiting, Adult, [id number] Referrals: PCP,None [Primary Care Provider] - Forms: ED Department Discharge Additional Instructions: Take ondansetron as directed. Push oral fluids as tolerated. Clear liquid diet until no vomiting then advance as tolerated. Follow up with primary as scheduled in 2 to 3 days. Sepsis Event Note (ED) - Evaluation Sepsis Screening Result: No Definite Risk - Focused Exam Vital Signs: Vital Signs Temp Pulse Resp BP Pulse Ox 07/03/20 15:15 37.3 C 86 16 137/68 16 L 07/03/20 15:01 37.3 C 86 16 137/68 16 L - My Orders Last 24 Hours: My Active Orders 07/03/20 15:44 Saline Lock Insert [OM.PC] Routine 07/03/20 16:05 CORONAVIRUS COVID-19, JOSETTE Routine - Assessment/Plan Last 24 Hours: My Active Orders 07/03/20 15:44 Saline Lock Insert [OM.PC] Routine 07/03/20 16:05 CORONAVIRUS COVID-19, JOSETTE Routine Assessment:: Nausea and vomiting Plan: Take ondansetron as directed. Push oral fluids as tolerated. Clear liquid diet until no vomiting then advance as tolerated. Follow up with primary as scheduled in 2 to 3 days. Follow COVID19 quarantine instructions. Patient will be notified of COVID19 test results once completed.
[2020-07-03] MEDS ORDERED: Metoclopramide 10 MG/2 ML SDV IVPUSH ONE (17:05)
[2020-07-03] MEDS ORDERED: Ketorolac 30 MG/ML SDV IVPUSH ONE (17:06)
[2020-07-03] MEDS ORDERED: Famotidine 20 MG/2 ML SDV IVPUSH ONE (17:07)
== END 2020-07-03 18:08 | disposition home or self-care (01) ==
LOC: JP.ED 14:52
DX: R11.2 Nausea with vomiting, unspecified (principal); R19.7 Diarrhea, unspecified; R14.0 Abdominal distension (gaseous); I25.10 Atherosclerotic heart disease of native coronary artery without angina pectoris; I25.2 Old myocardial infarction; J45.909 Unspecified asthma, uncomplicated; K21.9 Gastro-esophageal reflux disease without esophagitis; F41.9 Anxiety disorder, unspecified; D50.9 Iron deficiency anemia, unspecified; F17.210 Nicotine dependence, cigarettes, uncomplicated; Z91.013 Allergy to seafood; Z88.8 Allergy status to other drugs, medicaments and biological substances; Z91.018 Allergy to other foods; Z79.899 Other long term (current) drug therapy; Z20.828 Contact with and (suspected) exposure to other viral communicable diseases
CPT/HCPCS: 36415; 80048; 85025; 87635; 96374; 96375; 99284; J1885; J2405; J2765; J3490; U0002

== ENCOUNTER 2020-07-22 01:39 | Emergency (ER) | payer MEDICAID ==
--- NOTE | 2020-07-22 02:22 | EDM.PDOC ---
ED HPI GENERAL MEDICAL PROBLEM - General Chief Complaint: Behavioral/Psych Stated Complaint: MEDICAL VIA NORTH Time Seen by Provider: 07/22/20 02:00 Source of Information: Reports: Patient, EMS, Old Records, RN History Limitations: Reports: No Limitations - History of Present Illness INITIAL COMMENTS - FREE TEXT/NARRATIVE: 45 yo female with multiple medical problems and who has extensive assistance at home presents via EMS tonight after she had been drinking for varying complaints none of which are new and all of which have been previously addressed. She does live alone. Comes with a 4 pronged cane that she uses to get around with. Says she can only walk as far as her commode. Says she recently got new dentures. Told nursing that she was here for a few weeks of hallucinations, but never mentioned this to me. Told me she is here because of her difficulty walking, thought we could fit her up with a leg brace tonight. Says they are talking about doing back surgery on her. Told me she had 2 shots of liquor tonight, told nursing she had had 4 shots. Onset: Unknown/Unsure Duration: Chronic Location: Reports: Back, Lower Extremity, Left Quality: Reports: Other (unknown) Severity: Moderate Improves with: Reports: None Worsens with: Reports: None Context: Reports: Other (chronic condition) Associated Symptoms: Reports: No Other Symptoms Treatments CLIENT ACCOUNT REPRESENTATIVE: Reports: Other (see below) (usual meds) - Related Data Allergies Allergy/AdvReac Type Severity Reaction Status Date / Time Fish Containing Products Allergy Severe Airway Verified 07/22/20 01:58 Tightness ziprasidone [From Geodon] Allergy Severe Airway Verified 07/22/20 01:58 Tightness tree nut Allergy Hives Verified 07/22/20 01:58 lamotrigine [From Lamictal] AdvReac Leg Cramps Verified 07/22/20 01:58 msg Allergy Hives Uncoded 07/03/20 15:05 Home Meds: Home Meds Cyanocobalamin (Vitamin B-12) [B-12] 250 mcg PO DAILY 07/29/17 [History] Gabapentin [Neurontin] 200 mg PO BID 07/29/17 [History] Lactulose 30 ml PO TID 07/29/17 [History] levETIRAcetam [Keppra] 500 mg PO BID 07/29/17 [History] Omeprazole 20 mg PO BID 02/02/18 [History] Cholecalciferol (Vitamin D3) [Vitamin D3] 1 tab PO DAILY 09/16/19 [History] Folic Acid 1 mg PO DAILY 09/16/19 [History] Albuterol Sulfate [Proventil Hfa] 6.7 gm IH Q4H 09/29/19 [History] Albuterol [Proventil Neb Soln] 2.5 mg INH Q4H PRN 09/29/19 [History] Ferrous Gluconate 324 mg PO DAILY 09/29/19 [History] Furosemide 40 mg PO DAILY 09/29/19 [History] Nitroglycerin [Nitrostat] 0.4 mg SL ASDIRECTED PRN 09/29/19 [History] Rifaximin [Xifaxan] 550 mg PO BID 09/29/19 [History] Spironolactone [Aldactone] 100 mg PO DAILY 09/29/19 [History] Thiamine [Vitamin B-1] 1 tab PO DAILY 09/29/19 [History] hydrOXYzine HCL [Hydroxyzine HCl] 100 mg PO TID 09/29/19 [History] oxyCODONE 10 mg PO Q4H PRN 09/29/19 [History] Meclizine [Antivert] 0 mg PO TID 11/28/19 [History] Sucralfate [Carafate] 1 gm PO BEDTIME 40 Days #40 tablet 03/27/20 [Rx] Nitrofurantoin Monohyd/M-Cryst [Macrobid 100 mg Capsule] 100 mg PO Q12H #9 capsule 07/22/20 [Rx] Topiramate 25 mg PO BID 07/22/20 [History] Past Medical History HEENT History: Reports: Hard of Hearing, Impaired Vision Cardiovascular History: Reports: CAD, [place], Other (See Below) Other Cardiovascular History: portal hypertension. [place] was 2002 Respiratory History: Reports: Asthma Gastrointestinal History: Reports: Cirrhosis, GERD, Other (See Below) Other Gastrointestinal History: ascites, liver disease, cholecystitis, hepatic e ncephalopathy, stent placed in liver, voices that she is in last stages of liver failure. 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: Reports: , Spontaneous , Other (See Below) Other DRAPERY HEAD FORMER History: Irregular [place] Musculoskeletal History: Reports: Back Pain, Chronic, Fracture, Other (See Below) Other Musculoskeletal History: colar bone, Neurological History: Reports: Brain Injury, CVA, Head Trauma, Seizure, Vertigo, Other (See Below) Other Neuro History: TBI ICH Skull defect Psychiatric History: Reports: Addiction, Anxiety, Depression, Psych Hospitalization(s), Suicide Attempt Hematologic History: Reports: Blood Transfusion(s), Iron Deficiency, Other (See Below) Other Hematologic History: Hypokelemia, hypomagnesemia, hyponatremia Oncologic (Cancer) History: Reports: Cervix - Infectious Disease History Infectious Disease History: Reports: Chicken Pox - Past Surgical History Head Surgeries/Procedures: Reports: None HEENT Surgical History: Reports: Adenoidectomy, Tonsillectomy Cardiovascular Surgical History: Reports: Coronary Artery Bypass Other Cardiovascular Surgeries/Procedures: cabg x 1 GI Surgical History: Reports: Appendectomy, Cholecystectomy, EGD Female Surgical History: Reports: Cystectomy, Other (See Below) Other Female Surgeries/Procedures: removal of abscess from left breast Musculoskeletal Surgical History: Reports: None, Carpal Tunnel Oncologic Surgical History: Reports: None Social & Family History - Family History Family Medical History: Noncontributory - Tobacco Use Tobacco Use Status *Q: Light Tobacco User Years of Tobacco use: 39 Packs/Tins Daily: 0.3 - Caffeine Use Caffeine Use: Reports: None Caffeine Use Comment: one cup of coffee and one cup of tea - Recreational Drug Use Recreational Drug Use: No - Living Situation & Occupation Living situation: Reports: Single Occupation: Disabled (lives in Apartment, Sister and Uncle live in same building.) ED ROS GENERAL - Review of Systems Review Of Systems: See Below Constitutional: Reports: No Symptoms HEENT: Reports: No Symptoms Respiratory: Reports: No Symptoms Cardiovascular: Reports: No Symptoms GI/Abdominal: Reports: No Symptoms : Reports: No Symptoms Musculoskeletal: Reports: Back Pain (chronic), Leg Pain (L leg, chronic) Skin: Reports: No Symptoms Neurological: Reports: No Symptoms ED EXAM, GENERAL - Physical Exam Exam: See Below Exam Limited By: No Limitations General Appearance: Alert, WD/WN, No Apparent Distress Eye Exam: Bilateral Eye: Normal Inspection Ears: Normal External Exam, Normal Canal, Hearing Grossly Normal Ear Exam: Bilateral Ear: Auricle Normal, Canal Normal Nose: Normal Inspection, No Blood Throat/Mouth: Normal Inspection, Normal Lips, Normal Oropharynx, Normal Voice, No Airway Compromise, Other (speech somewhat slurred.) Head: Atraumatic, Other (skull deformity from an old injury). No: Normocephalic Neck: Normal Inspection Respiratory/Chest: No Respiratory Distress, Lungs Clear, Normal Breath Sounds, No Accessory Muscle Use Cardiovascular: Regular Rate, Rhythm GI/Abdominal: Normal Bowel Sounds, Soft, Non-Tender, No Distention Back Exam: Normal Inspection Extremities: Normal Inspection, Normal Range of Motion, Non-Tender. No: No Pedal Edema (trace pedal edema below the knees) Neurological: Alert, Oriented, CN II-XII Intact, Normal Cognition, No Motor/Sensory Deficits Psychiatric: Normal Affect, Normal Mood Skin Exam: Warm, Dry, Intact, Normal Color, No Rash Course - Vital Signs Last Recorded V/S: Last Vital Signs Temp 36.4 C 07/22/20 01:43 Pulse 69 07/22/20 01:43 Resp 16 07/22/20 01:43 BP 117/67 07/22/20 01:43 Pulse Ox 96 07/22/20 01:43 - Orders/Labs/Meds Orders: Active Orders 24 hr Category Date Time Status CULTURE URINE [RM] Stat Lab 07/22/20 02:41 Ordered Labs: Laboratory Tests 07/22/20 07/22/20 07/22/20 Range/Units 02:20 02:31 02:31 Urine Color Yellow (YELLOW) Urine Appearance Slightly cloudy A (CLEAR) Urine pH 6.0 (5.0-8.0) Ur Specific Bowie 1.025 (1.008-1.030) Urine Protein Negative (NEGATIVE) mg/dL Urine Glucose (UA) Negative (NEGATIVE) mg/dL Urine Ketones Negative (NEGATIVE) mg/dL Urine Occult Blood Moderate H (NEGATIVE) Urine Nitrite Positive H (NEGATIVE) Urine Bilirubin Negative (NEGATIVE) Urine Urobilinogen 1.0 (0.2-1.0) EU/dL Ur Leukocyte Esterase Negative (NEGATIVE) Urine RBC 0-5 (0-5) Urine WBC 5-10 H (0-5) Ur Epithelial Cells Few Amorphous Sediment Not seen Urine Bacteria Many Urine Mucus Not seen Urine Opiates Screen Negative (NEGATIVE) Ur Oxycodone Screen Presumptive positive H (NEGATIVE) Urine Methadone Screen Negative (NEGATIVE) Ur Propoxyphene Screen Negative (NEGATIVE) Ur Barbiturates Screen Negative (NEGATIVE) Ur Tricyclics Screen Negative (NEGATIVE) Ur Phencyclidine Scrn Negative (NEGATIVE) Ur Amphetamine Screen Negative (NEGATIVE) U Methamphetamines Scrn Negative (NEGATIVE) Urine MDMA Screen Negative (NEGATIVE) U Benzodiazepines Scrn Negative (NEGATIVE) U Cocaine Metab Screen Negative (NEGATIVE) U Marijuana (THC) Screen Negative (NEGATIVE) Ethyl Alcohol 271 mg/dL Meds: Medications Discontinued Medications Generic Name Dose Route Start Last Admin Trade Name Juan PRN Reason Stop Dose Admin Nitrofurantoin Macrocrystals 100 mg 07/22/20 02:42 Macrobid PO 07/22/20 02:43 ONETIME ONE - Re-Assessments/Exams Free Text/Narrative Re-Assessment/Exam: 07/22/20 02:32 What here just a few minutes and stated that she wanted to go home. Asked to call her sister to come and get her. Departure - Departure Time of Disposition: 03:00 Disposition: Home, Self-Care 01 Condition: Fair Clinical Impression: Cystitis Alcohol intoxication Qualifiers: Complication of substance-induced condition: with unspecified complication Qualified Code(s): F10.929 - Alcohol use, unspecified with intoxication, unspecified - Discharge Information *PRESCRIPTION DRUG MONITORING PROGRAM REVIEWED*: Not Applicable *COPY OF PRESCRIPTION DRUG MONITORING REPORT IN PATIENT NOMAN: Not Applicable Prescriptions: Nitrofurantoin Monohyd/M-Cryst [Macrobid 100 mg Capsule] 100 mg PO Q12H #9 capsule Referrals: PCP,None [Primary Care Provider] - Forms: ED Department Discharge Additional Instructions: Stay on your current medications. F/U with your providers as needed. An Rx was sent to [facility] for more Macrobid for your UTI, take it every 12 hrs until gone. See your doctor to have your urine retested when you finish the Macrobid. Sepsis Event Note (ED) - Evaluation Sepsis Screening Result: No Definite Risk - Focused Exam Vital Signs: Vital Signs Temp Pulse Resp BP Pulse Ox 07/22/20 01:43 36.4 C 69 16 117/67 96 - My Orders Last 24 Hours: My Active Orders 07/22/20 02:41 CULTURE URINE [RM] Stat - Assessment/Plan Last 24 Hours: My Active Orders 07/22/20 02:41 CULTURE URINE [RM] Stat
[2020-07-22] MEDS ORDERED: Nitrofurantoin Monohydrate/Macrocrystalline 100 MG Cap PO ONE (02:42)
== END 2020-07-22 02:59 | disposition home or self-care (01) ==
LOC: JP.ED 01:39
DX: N30.90 Cystitis, unspecified without hematuria (principal); F10.129 Alcohol abuse with intoxication, unspecified; I25.10 Atherosclerotic heart disease of native coronary artery without angina pectoris; I25.2 Old myocardial infarction; J45.909 Unspecified asthma, uncomplicated; K21.9 Gastro-esophageal reflux disease without esophagitis; F41.9 Anxiety disorder, unspecified; F32.9 Major depressive disorder, single episode, unspecified; R56.9 Unspecified convulsions; F17.210 Nicotine dependence, cigarettes, uncomplicated; Z91.013 Allergy to seafood; Z88.8 Allergy status to other drugs, medicaments and biological substances; Z91.018 Allergy to other foods; Z79.899 Other long term (current) drug therapy; Z86.73 Personal history of transient ischemic attack (TIA), and cerebral infarction without residual deficits; Y90.8 Blood alcohol level of 240 mg/100 ml or more
CPT/HCPCS: 36415; 80305; 80307; 81001; 87086; 87088; 87186; 99285; A9270

== ENCOUNTER 2020-07-23 15:12 | Emergency (ER) | payer MEDICAID ==
--- NOTE | 2020-07-23 16:27 | EDM.PDOC ---
ED HPI GENERAL MEDICAL PROBLEM - General Stated Complaint: SUICIDAL, BACK PAIN VIA NORTH Time Seen by Provider: 07/23/20 16:23 Source of Information: Reports: Patient History Limitations: Reports: No Limitations - History of Present Illness INITIAL COMMENTS - FREE TEXT/NARRATIVE: pt was brought by ambulance with a possible overdose. She got here and she was talking. The nurse went in to do the workup and she said that she was going to leave. She was not willing to share exactly what had gone on today. - Related Data Allergies Allergy/AdvReac Type Severity Reaction Status Date / Time Fish Containing Products Allergy Severe Airway Verified 07/24/20 18:24 Tightness ziprasidone [From Geodon] Allergy Severe Airway Verified 07/24/20 18:24 Tightness tree nut Allergy Hives Verified 07/24/20 18:24 lamotrigine [From Lamictal] AdvReac Leg Cramps Verified 07/24/20 18:24 msg Allergy Hives Uncoded 07/24/20 18:24 Home Meds: Home Meds Cyanocobalamin (Vitamin B-12) [B-12] 250 mcg PO DAILY 07/29/17 [History] Gabapentin [Neurontin] 200 mg PO BID 07/29/17 [History] Lactulose 30 ml PO TID 07/29/17 [History] levETIRAcetam [Keppra] 500 mg PO BID 07/29/17 [History] Omeprazole 20 mg PO BID 10/19/17 [History] Cholecalciferol (Vitamin D3) [Vitamin D3] 1 tab PO DAILY 09/16/19 [History] Folic Acid 1 mg PO DAILY 09/16/19 [History] Albuterol Sulfate [Proventil Hfa] 6.7 gm IH Q4H 09/29/19 [History] Albuterol [Proventil Neb Soln] 2.5 mg INH Q4H PRN 09/29/19 [History] Ferrous Gluconate 324 mg PO DAILY 09/29/19 [History] Furosemide 40 mg PO DAILY 09/29/19 [History] Nitroglycerin [Nitrostat] 0.4 mg SL ASDIRECTED PRN 09/29/19 [History] Rifaximin [Xifaxan] 550 mg PO BID 09/29/19 [History] Spironolactone [Aldactone] 100 mg PO DAILY 09/29/19 [History] Thiamine [Vitamin B-1] 1 tab PO DAILY 09/29/19 [History] hydrOXYzine HCL [Hydroxyzine HCl] 100 mg PO TID 09/29/19 [History] oxyCODONE 10 mg PO Q4H PRN 09/29/19 [History] Meclizine [Antivert] 0 mg PO TID 11/28/19 [History] Sucralfate [Carafate] 1 gm PO BEDTIME 40 Days #40 tablet 03/27/20 [Rx] Topiramate 25 mg PO BID 07/22/20 [History] nitrofurantoin macrocrystaL [Nitrofurantoin] 100 mg PO BID 07/25/20 [History] Past Medical History HEENT History: Reports: Hard of Hearing, Impaired Vision Cardiovascular History: Reports: CAD, [place], Other (See Below) Other Cardiovascular History: portal hypertension. [place] was 2002 Respiratory History: Reports: Asthma Gastrointestinal History: Reports: Cirrhosis, GERD, Other (See Below) Other Gastrointestinal History: ascites, liver disease, cholecystitis, hepatic encephalopathy, stent placed in liver, voices that she is in last stages of liver failure. 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: Reports: , Spontaneous , Other (See Below) Other SURVEY INSTRUMENT OPERATOR History: Irregular [place] Musculoskeletal History: Reports: Back Pain, Chronic, Fracture, Other (See Below) Other Musculoskeletal History: colar bone, Neurological History: Reports: Brain Injury, CVA, Head Trauma, Seizure, Vertigo, Other (See Below) Other Neuro History: TBI ICH Skull defect Psychiatric History: Reports: Addiction, Anxiety, Depression, Psych Hospitalization(s), Suicide Attempt Hematologic History: Reports: Blood Transfusion(s), Iron Deficiency, Other (See Below) Other Hematologic History: Hypokelemia, hypomagnesemia, hyponatremia Oncologic (Cancer) History: Reports: Cervix - Infectious Disease History Infectious Disease History: Reports: Chicken Pox - Past Surgical History Head Surgeries/Procedures: Reports: None HEENT Surgical History: Reports: Adenoidectomy, Tonsillectomy Cardiovascular Surgical History: Reports: Coronary Artery Bypass Other Cardiovascular Surgeries/Procedures: cabg x 1 GI Surgical History: Reports: Appendectomy, Cholecystectomy, EGD Female Surgical History: Reports: Cystectomy, Other (See Below) Other Female Surgeries/Procedures: removal of abscess from left breast Musculoskeletal Surgical History: Reports: None, Carpal Tunnel Oncologic Surgical History: Reports: None Social & Family History - Family History Family Medical History: Noncontributory - Caffeine Use Caffeine Use: Reports: None Caffeine Use Comment: one cup of coffee and one cup of tea - Living Situation & Occupation Living situation: Reports: Single Occupation: Disabled (lives in Apartment, Sister and Uncle live in same building.) ED ROS GENERAL - Review of Systems Review Of Systems: See Below ED EXAM, GENERAL - Physical Exam Exam: See Below Free Text/Narrative:: pt was not in the room when I went in to work her up. Labs were ordered but I believe she was gone before these were drawn. Course - Vital Signs Last Recorded V/S: Last Vital Signs Temp 36.8 C 07/23/20 15:18 Pulse 89 07/23/20 15:18 Resp 18 07/23/20 15:18 BP 135/70 07/23/20 15:18 Pulse Ox 94 L 07/23/20 15:18 Departure - Departure Time of Disposition: 16:55 Disposition: Eloped 07 Condition: Undetermined Clinical Impression: Drug abuse Referrals: PCP,None [Primary Care Provider] - Care Plan Goals: pt eloped.
== END 2020-07-23 16:30 | disposition left against medical advice (07) ==
LOC: JP.ED 15:12
DX: Z53.21 Procedure and treatment not carried out due to patient leaving prior to being seen by health care provider (principal)

== ENCOUNTER 2020-07-23 18:27 | Emergency (ER) | payer MEDICAID ==
--- NOTE | 2020-07-23 19:20 | EDM.PDOC ---
ED HPI GENERAL MEDICAL PROBLEM - General Chief Complaint: Drug or Alcohol Abuse Stated Complaint: MEDICAL VIA NORTH Time Seen by Provider: 07/23/20 19:04 Source of Information: Reports: Patient, Old Records, RN Notes Reviewed History Limitations: Reports: Intoxication - History of Present Illness INITIAL COMMENTS - FREE TEXT/NARRATIVE: 45-year-old female presents emergency department today via EMS, this is her second visit to the ED first visit was this morning thought to be an overdose however she eloped before evaluation could be completed. This time she states she is having hallucinations both auditory and visual has been going on for months she has brought these up both with her counselor and her primary care provider she is also complaining of burning with urination and foul-smelling urine and would like to have her urine checked. She is intoxicated does admit to using alcohol - Related Data Allergies Allergy/AdvReac Type Severity Reaction Status Date / Time Fish Containing Products Allergy Severe Airway Verified 07/23/20 19:19 Tightness ziprasidone [From Geodon] Allergy Severe Airway Verified 07/23/20 19:19 Tightness tree nut Allergy Hives Verified 07/23/20 19:19 lamotrigine [From Lamictal] AdvReac Leg Cramps Verified 07/23/20 19:19 msg Allergy Hives Uncoded 07/23/20 19:19 Home Meds: Home Meds Cyanocobalamin (Vitamin B-12) [B-12] 250 mcg PO DAILY 07/29/17 [History] Gabapentin [Neurontin] 200 mg PO BID 07/29/17 [History] Lactulose 30 ml PO TID 07/29/17 [History] levETIRAcetam [Keppra] 500 mg PO BID 07/29/17 [History] Omeprazole 20 mg PO BID 10/19/17 [History] Cholecalciferol (Vitamin D3) [Vitamin D3] 1 tab PO DAILY 09/16/19 [History] Folic Acid 1 mg PO DAILY 09/16/19 [History] Albuterol Sulfate [Proventil Hfa] 6.7 gm IH Q4H 09/29/19 [History] Albuterol [Proventil Neb Soln] 2.5 mg INH Q4H PRN 09/29/19 [History] Ferrous Gluconate 324 mg PO DAILY 09/29/19 [History] Furosemide 40 mg PO DAILY 09/29/19 [History] Nitroglycerin [Nitrostat] 0.4 mg SL ASDIRECTED PRN 09/29/19 [History] Rifaximin [Xifaxan] 550 mg PO BID 09/29/19 [History] Spironolactone [Aldactone] 100 mg PO DAILY 09/29/19 [History] Thiamine [Vitamin B-1] 1 tab PO DAILY 09/29/19 [History] hydrOXYzine HCL [Hydroxyzine HCl] 100 mg PO TID 09/29/19 [History] oxyCODONE 10 mg PO Q4H PRN 09/29/19 [History] Meclizine [Antivert] 0 mg PO TID 11/28/19 [History] Sucralfate [Carafate] 1 gm PO BEDTIME 40 Days #40 tablet 03/27/20 [Rx] Nitrofurantoin Monohyd/M-Cryst [Macrobid 100 mg Capsule] 100 mg PO Q12H #9 capsule 07/22/20 [Rx] Topiramate 25 mg PO BID 07/22/20 [History] Past Medical History HEENT History: Reports: Hard of Hearing, Impaired Vision Cardiovascular History: Reports: CAD, [place], Other (See Below) Other Cardiovascular History: portal hypertension. [place] was 2002 Respiratory History: Reports: Asthma Gastrointestinal History: Reports: Cirrhosis, GERD, Other (See Below) Other Gastrointestinal History: ascites, liver disease, cholecystitis, hepatic encephalopathy, stent placed in liver, voices that she is in last stages of liver failure. 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: , Spontaneous , Other (See Below) Other PLANT CULTURE MANAGER History: Irregular [place] Musculoskeletal History: Reports: Back Pain, Chronic, Fracture, Other (See Below) Other Musculoskeletal History: colar bone, Neurological History: Reports: Brain Injury, CVA, Head Trauma, Seizure, Vertigo, Other (See Below) Other Neuro History: TBI ICH Skull defect Psychiatric History: Reports: Addiction, Anxiety, Depression, Psych Hospitalization(s), Suicide Attempt Hematologic History: Reports: Blood Transfusion(s), Iron Deficiency, Other (See Below) Other Hematologic History: Hypokelemia, hypomagnesemia, hyponatremia Oncologic (Cancer) History: Reports: Cervix - Infectious Disease History Infectious Disease History: Reports: Chicken Pox - Past Surgical History Head Surgeries/Procedures: Reports: None HEENT Surgical History: Reports: Adenoidectomy, Tonsillectomy Cardiovascular Surgical History: Reports: Coronary Artery Bypass Other Cardiovascular Surgeries/Procedures: cabg x 1 GI Surgical History: Reports: Appendectomy, Cholecystectomy, EGD Female Surgical History: Reports: Cystectomy, Other (See Below) Other Female Surgeries/Procedures: removal of abscess from left breast Musculoskeletal Surgical History: Reports: None, Carpal Tunnel Oncologic Surgical History: Reports: None Social & Family History - Family History Family Medical History: Noncontributory - Caffeine Use Caffeine Use: Reports: None Caffeine Use Comment: one cup of coffee and one cup of tea - Living Situation & Occupation Living situation: Reports: Single Occupation: Disabled (lives in Apartment, Sister and Uncle live in same building.) ED ROS GENERAL - Review of Systems Review Of Systems: See Below Constitutional: Reports: No Symptoms : Reports: Dysuria, Other (Foul-smelling urine) Psychiatric: Reports: Hallucinations, Homicidal Ideation, Suicidal Ideation, Other (Intoxicated) ED EXAM, RENAL/ - Physical Exam Exam: See Below Exam Limited By: Intoxication General Appearance: Alert, No Apparent Distress GI/Abdominal: Soft, Non-Tender Back Exam: No: CVA Tenderness (R), CVA Tenderness (L) Course - Orders/Labs/Meds Orders: Active Orders 24 hr Category Date Time Status CULTURE URINE [RM] Urgent Lab 07/23/20 19:50 Ordered Labs: Laboratory Tests 07/23/20 07/23/20 Range/Units 19:32 19:32 Urine Color Yellow (YELLOW) Urine Appearance Slightly cloudy A (CLEAR) Urine pH 6.5 (5.0-8.0) Ur Specific [place] 1.015 (1.008-1.030) Urine Protein Negative (NEGATIVE) mg/dL Urine Glucose (UA) Negative (NEGATIVE) mg/dL Urine Ketones Negative (NEGATIVE) mg/dL Urine Occult Blood Moderate H (NEGATIVE) Urine Nitrite Negative (NEGATIVE) Urine Bilirubin Negative (NEGATIVE) Urine Urobilinogen 1.0 (0.2-1.0) EU/dL Ur Leukocyte Esterase Negative (NEGATIVE) Urine RBC Not seen (0-5) Urine WBC 0-5 (0-5) Ur Epithelial Cells Few Urine Bacteria Many Urine Opiates Screen Negative (NEGATIVE) Ur Oxycodone Screen Presumptive positive H (NEGATIVE) Urine Methadone Screen Negative (NEGATIVE) Ur Propoxyphene Screen Negative (NEGATIVE) Ur Barbiturates Screen Negative (NEGATIVE) Ur Tricyclics Screen Negative (NEGATIVE) Ur Phencyclidine Scrn Negative (NEGATIVE) Ur Amphetamine Screen Negative (NEGATIVE) U Methamphetamines Scrn Negative (NEGATIVE) Urine MDMA Screen Negative (NEGATIVE) U Benzodiazepines Scrn Negative (NEGATIVE) U Cocaine Metab Screen Negative (NEGATIVE) U Marijuana (THC) Screen Negative (NEGATIVE) Departure - Departure Time of Disposition: 19:54 Disposition: Home, Self-Care 01 Condition: Poor Clinical Impression: Foul smelling urine Alcohol intoxication Qualifiers: Complication of substance-induced condition: with unspecified complication Qualified Code(s): F10.929 - Alcohol use, unspecified with intoxication, unspecified - Discharge Information Referrals: PCP,None [Primary Care Provider] - Forms: ED Department Discharge Additional Instructions: Please follow-up with your primary care next week for further evaluation your culture results will be available at that time - My Orders Last 24 Hours: My Active Orders 07/23/20 19:50 CULTURE URINE [RM] Urgent - Assessment/Plan Last 24 Hours: My Active Orders 07/23/20 19:50 CULTURE URINE [RM] Urgent Plan: Assessment Acuity = acute Site and laterality = foul-smelling urine Etiology = suspicious for underlying bacterial cause Manifestations = none Location of injury = Home Lab values = urinalysis does show many bacteria moderate amount of blood however no obvious signs of infection Plan Elect to treat empirically Rocephin 1 g IM x1 I because she is restricted patient I cannot write prescriptions for her vascular follow-up with her primary care on Sunday for further evaluation This note was dictated using [employer] voice recognition software please call with any questions on syntax or grammar.
[2020-07-23] MEDS ORDERED: cefTRIAXone 1 GM, Lidocaine 1% 2.1 ML IM ONE ×2 (19:54)
== END 2020-07-23 20:21 | disposition home or self-care (01) ==
LOC: JP.ED 18:27
DX: F10.129 Alcohol abuse with intoxication, unspecified (principal); R82.998 Other abnormal findings in urine; I25.10 Atherosclerotic heart disease of native coronary artery without angina pectoris; I25.2 Old myocardial infarction; J45.909 Unspecified asthma, uncomplicated; K21.9 Gastro-esophageal reflux disease without esophagitis; F41.9 Anxiety disorder, unspecified; F32.9 Major depressive disorder, single episode, unspecified; R56.9 Unspecified convulsions; Z91.013 Allergy to seafood; Z88.8 Allergy status to other drugs, medicaments and biological substances; Z91.018 Allergy to other foods; Z86.73 Personal history of transient ischemic attack (TIA), and cerebral infarction without residual deficits
CPT/HCPCS: 80305-QW; 81001; 87086; 96372; 99283; 99284

== ENCOUNTER 2020-07-24 17:48 | Emergency (ER) | payer MEDICAID ==
--- NOTE | 2020-07-24 18:36 | EDM.PDOCBH ---
<[facility] - Last Filed: 07/25/20 09:12> ED HPI GENERAL MEDICAL PROBLEM - General Chief Complaint: Behavioral/Psych Stated Complaint: EVAL VIA [facility] Time Seen by Provider: 07/24/20 18:20 - Related Data Allergies Allergy/AdvReac Type Severity Reaction Status Date / Time Fish Containing Products Allergy Severe Airway Verified 07/24/20 18:24 Tightness ziprasidone [From Geodon] Allergy Severe Airway Verified 07/24/20 18:24 Tightness tree nut Allergy Hives Verified 07/24/20 18:24 lamotrigine [From Lamictal] AdvReac Leg Cramps Verified 07/24/20 18:24 msg Allergy Hives Uncoded 07/24/20 18:24 Home Meds: Home Meds Cyanocobalamin (Vitamin B-12) [B-12] 250 mcg PO DAILY 07/29/17 [History] Gabapentin [Neurontin] 200 mg PO BID 07/29/17 [History] Lactulose 30 ml PO TID 07/29/17 [History] levETIRAcetam [Keppra] 500 mg PO BID 07/29/17 [History] Omeprazole 20 mg PO BID 10/19/17 [History] Cholecalciferol (Vitamin D3) [Vitamin D3] 1 tab PO DAILY 09/16/19 [History] Folic Acid 1 mg PO DAILY 09/16/19 [History] Albuterol Sulfate [Proventil Hfa] 6.7 gm IH Q4H 09/29/19 [History] Albuterol [Proventil Neb Soln] 2.5 mg INH Q4H PRN 09/29/19 [History] Ferrous Gluconate 324 mg PO DAILY 09/29/19 [History] Furosemide 40 mg PO DAILY 09/29/19 [History] Nitroglycerin [Nitrostat] 0.4 mg SL ASDIRECTED PRN 09/29/19 [History] Rifaximin [Xifaxan] 550 mg PO BID 09/29/19 [History] Spironolactone [Aldactone] 100 mg PO DAILY 09/29/19 [History] Thiamine [Vitamin B-1] 1 tab PO DAILY 09/29/19 [History] hydrOXYzine HCL [Hydroxyzine HCl] 100 mg PO TID 09/29/19 [History] oxyCODONE 10 mg PO Q4H PRN 09/29/19 [History] Meclizine [Antivert] 0 mg PO TID 11/28/19 [History] Sucralfate [Carafate] 1 gm PO BEDTIME 40 Days #40 tablet 03/27/20 [Rx] Topiramate 25 mg PO BID 07/22/20 [History] nitrofurantoin macrocrystaL [Nitrofurantoin] 100 mg PO BID 07/25/20 [History] COURSE, BEHAVIORAL HEALTH COMP - Course Re-Assessment/Re-Exam: Patient care turned over from Dr. Limon while she was sleeping off intoxication. When she awoke she was discharged home with strong recommendations to avoid any further alcohol intake as she makes poor decisions and becomes depressed. Departure - Departure Time of Disposition: 09:06 Disposition: Home, Self-Care 01 Clinical Impression: Alcohol intoxication Qualifiers: Complication of substance-induced condition: with unspecified complication Qualified Code(s): F10.929 - Alcohol use, unspecified with intoxication, unspecified - Discharge Information Instructions: Binge-Drinking Information, Adult Referrals: PCP,None [Primary Care Provider] - Forms: ED Department Discharge Care Plan Goals: Do not drink alcohol, it causes you to become depressed and make poor decisions. Contact your [facility] worker today or tomorrow to discuss your frequent use of EMS services and alcohol abuse. <Margaret Monsivais - Last Filed: 07/25/20 11:11> ED HPI GENERAL MEDICAL PROBLEM - General Source of Information: Reports: Patient, RN Notes Reviewed History Limitations: Reports: Intoxication - History of Present Illness INITIAL COMMENTS - FREE TEXT/NARRATIVE: Cris presents today for "I want to ". Patient states I wanted to drink so I drank a bunch of peach schnapps today. She denies any other plans for suicide or homicide. She denies fever, chills, nausea, vomiting or other concerns. Back Pain Score (Numeric/FACES): 8 Past Medical History HEENT History: Reports: Hard of Hearing, Impaired Vision Cardiovascular History: Reports: CAD, [place], Other (See Below) Other Cardiovascular History: portal hypertension. [place] was 2002 Respiratory History: Reports: Asthma Gastrointestinal History: Reports: Cirrhosis, GERD, Other (See Below) Other Gastrointestinal History: ascites, liver disease, cholecystitis, hepatic encephalopathy, stent placed in liver, voices that she is in last stages of liver failure. Genitourinary History: Reports: Renal Calculus, Other (See Below) Other Genitourinary History: urethral stent placed that extends to kidney ENGINEER SECOND ASSISTANT History: Reports: , Spontaneous , Other (See Below) Other ENGINEER SECOND ASSISTANT History: Irregular [place] Musculoskeletal History: Reports: Back Pain, Chronic, Fracture, Other (See Below) Other Musculoskeletal History: colar bone, Neurological History: Reports: Brain Injury, CVA, Head Trauma, Seizure, Vertigo, Other (See Below) Other Neuro History: TBI ICH Skull defect Psychiatric History: Reports: Addiction, Anxiety, Depression, Psych Hospitalizat ion(s), Suicide Attempt Hematologic History: Reports: Blood Transfusion(s), Iron Deficiency, Other (See Below) Other Hematologic History: Hypokelemia, hypomagnesemia, hyponatremia Oncologic (Cancer) History: Reports: Cervix - Infectious Disease History Infectious Disease History: Reports: Chicken Pox - Past Surgical History Head Surgeries/Procedures: Reports: None HEENT Surgical History: Reports: Adenoidectomy, Tonsillectomy Cardiovascular Surgical History: Reports: Coronary Artery Bypass Other Cardiovascular Surgeries/Procedures: cabg x 1 GI Surgical History: Reports: Appendectomy, Cholecystectomy, EGD Female Surgical History: Reports: Cystectomy, Other (See Below) Other Female Surgeries/Procedures: removal of abscess from left breast Musculoskeletal Surgical History: Reports: None, Carpal Tunnel Oncologic Surgical History: Reports: None Social & Family History - Family History Family Medical History: Noncontributory - Caffeine Use Caffeine Use: Reports: None Caffeine Use Comment: one cup of coffee and one cup of tea - Living Situation & Occupation Living situation: Reports: Single Occupation: Disabled (lives in Apartment, Sister and Uncle live in same building.) ED ROS GENERAL - Review of Systems Review Of Systems: See Below Constitutional: Reports: Other (ETOH on board) HEENT: Reports: No Symptoms Respiratory: Reports: No Symptoms Cardiovascular: Reports: No Symptoms Endocrine: Reports: No Symptoms GI/Abdominal: Reports: No Symptoms : Reports: No Symptoms Musculoskeletal: Reports: No Symptoms Skin: Reports: No Symptoms Neurological: Reports: Other (ETOH on board) Psychiatric: Reports: No Symptoms Hematologic/Lymphatic: Reports: No Symptoms Immunologic: Reports: No Symptoms ED EXAM, BEHAVIORAL HEALTH - Physical Exam Exam: See Below Exam Limited By: Intoxication General Appearance: WD/WN, Mild Distress, Other (tearful at times) Eye Exam: Bilateral Eye: PERRL Ears: Normal External Exam, Normal Canal, Hearing Grossly Normal, Normal TMs Nose: Normal Inspection, Normal Mucosa, No Blood Throat/Mouth: Normal Inspection, Normal Lips, Normal Teeth, Normal Gums, Normal Voice, No Airway Compromise Head: Atraumatic, Other (chronic deformity to skull) Neck: Normal Inspection, Supple, Non-Tender, Full Range of Motion. No: Lymphadenopathy (R), Lymphadenopathy (L) Respiratory/Chest: No Respiratory Distress, Lungs Clear, Normal Breath Sounds, No Accessory Muscle Use, Chest Non-Tender. No: Crackles, Rales, Rhonchi, Wheezing Cardiovascular: Normal Peripheral Pulses, Regular Rate, Rhythm, No Edema, No Gallop, No Murmur, No Rub GI/Abdominal: Normal Bowel Sounds, Soft, Non-Tender, No Organomegaly, No Distention, No Mass. No: Guarding, Rigid, Rebound Back Exam: Normal Inspection, Full Range of Motion. No: CVA Tenderness (R), CVA Tenderness (L) Extremities: Normal Inspection, Normal Range of Motion, Non-Tender, No Pedal Edema, Normal Capillary Refill Neurological: Inattentive, Other (ETOH on board) Psychiatric: Depressed Mood, Poor Eye Contact, Suicidal Thoughts Skin Exam: Warm, Dry, Intact, Normal color, No rash COURSE, BEHAVIORAL HEALTH COMP - Course Vital Signs: Last Vital Signs Temp 36.2 C 07/25/20 08:58 Pulse 84 07/25/20 08:58 Resp 16 07/25/20 08:58 BP 146/95 H 07/25/20 08:58 Pulse Ox 95 07/25/20 08:58 Orders, Labs, Meds: Laboratory Tests 07/24/20 07/24/20 07/24/20 Range/Units 18:50 18:50 18:50 WBC 3.4 L (4.5-11.0) K/uL RBC 4.17 (3.30-5.50) M/uL Hgb 13.7 (12.0-15.0) g/dL Hct 39.7 (36.0-48.0) % MCV 95 (80-98) fL MCH 33 H (27-31) pg MCHC 35 (32-36) % Plt Count 110 L (150-400) K/uL Neut % (Auto) 39 (36-66) % Lymph % (Auto) 44 (24-44) % [place] % (Auto) 15 H (2-6) % Eos % (Auto) 2 (2-4) % Baso % (Auto) 0 (0-1) % Sodium 144 (140-148) mmol/L Potassium 3.0 L (3.6-5.2) mmol/L Chloride 107 (100-108) mmol/L Carbon Dioxide 26 (21-32) mmol/L Anion Gap 14.0 (5.0-14.0) mmol/L BUN 6 L (7-18) mg/dL Creatinine 0.9 (0.6-1.0) mg/dL Est Cr Clr Drug Dosing 61.12 mL/min Estimated GFR (MDRD) > 60 (>60) Glucose 125 H (74-106) mg/dL Calcium 8.3 L (8.5-10.1) mg/dL Total Bilirubin 0.6 (0.2-1.0) mg/dL AST 50 H (15-37) U/L ALT 45 (12-78) U/L Alkaline Phosphatase 175 H (46-116) U/L Total Protein 6.0 L (6.4-8.2) g/dL Albumin 3.0 L (3.4-5.0) g/dL Globulin 3.0 (2.3-3.5) g/dL Albumin/Globulin Ratio 1.0 L (1.2-2.2) Salicylates 1.8 L (2.0-20.0) mg/dL Urine Opiates Screen (NEGATIVE) Ur Oxycodone Screen (NEGATIVE) Urine Methadone Screen (NEGATIVE) Ur Propoxyphene Screen (NEGATIVE) Acetaminophen 0.0 L (10.0-30.0) ug/mL Ur Barbiturates Screen (NEGATIVE) Ur Tricyclics Screen (NEGATIVE) Ur Phencyclidine Scrn (NEGATIVE) Ur Amphetamine Screen (NEGATIVE) U Methamphetamines Scrn (NEGATIVE) Urine MDMA Screen (NEGATIVE) U Benzodiazepines Scrn (NEGATIVE) U Cocaine Metab Screen (NEGATIVE) U Marijuana (THC) Screen (NEGATIVE) Ethyl Alcohol mg/dL 07/24/20 07/24/20 Range/Units 18:50 19:05 WBC (4.5-11.0) K/uL RBC (3.30-5.50) M/uL Hgb (12.0-15.0) g/dL Hct (36.0-48.0) % MCV (80-98) fL MCH (27-31) pg MCHC (32-36) % Plt Count (150-400) K/uL Neut % (Auto) (36-66) % Lymph % (Auto) (24-44) % [place] % (Auto) (2-6) % Eos % (Auto) (2-4) % Baso % (Auto) (0-1) % Sodium (140-148) mmol/L Potassium (3.6-5.2) mmol/L Chloride (100-108) mmol/L Carbon Dioxide (21-32) mmol/L Anion Gap (5.0-14.0) mmol/L BUN (7-18) mg/dL Creatinine (0.6-1.0) mg/dL Est Cr Clr Drug Dosing mL/min Estimated GFR (MDRD) (>60) Glucose (74-106) mg/dL Calcium (8.5-10.1) mg/dL Total Bilirubin (0.2-1.0) mg/dL AST (15-37) U/L ALT (12-78) U/L Alkaline Phosphatase (46-116) U/L Total Protein (6.4-8.2) g/dL Albumin (3.4-5.0) g/dL Globulin (2.3-3.5) g/dL Albumin/Globulin Ratio (1.2-2.2) Salicylates (2.0-20.0) mg/dL Urine Opiates Screen Negative (NEGATIVE) Ur Oxycodone Screen Presumptive positive H (NEGATIVE) Urine Methadone Screen Negative (NEGATIVE) Ur Propoxyphene Screen Negative (NEGATIVE) Acetaminophen (10.0-30.0) ug/mL Ur Barbiturates Screen Negative (NEGATIVE) Ur Tricyclics Screen Negative (NEGATIVE) Ur Phencyclidine Scrn Negative (NEGATIVE) Ur Amphetamine Screen Negative (NEGATIVE) U Methamphetamines Scrn Negative (NEGATIVE) Urine MDMA Screen Negative (NEGATIVE) U Benzodiazepines Scrn Presumptive positive H (NEGATIVE) U Cocaine Metab Screen Negative (NEGATIVE) U Marijuana (THC) Screen Negative (NEGATIVE) Ethyl Alcohol 194 mg/dL Medications Discontinued Medications Generic Name Dose Route Start Last Admin Trade Name Freq PRN Reason Stop Dose Admin Ondansetron HCl 4 mg 07/25/20 05:17 07/25/20 05:21 Zofran Odt PO 07/25/20 05:18 4 mg ONETIME ONE Administration Patient lab work reviewed. No acute/significant findings. We will let patient rest, sober up and re-evaluate. Re-Assessment/Re-Exam: Patient sleeping, respirations even and unlabored. [id number] Limon, he assumes care. Sepsis Event Note (ED) - Evaluation Sepsis Screening Result: No Definite Risk - Focused Exam Vital Signs: Vital Signs Temp Pulse Resp BP Pulse Ox 07/25/20 08:58 36.2 C 84 16 146/95 H 95
[2020-07-25] MEDS ORDERED: Ondansetron 4 MG Tab.DIS PO ONE (05:17)
== END 2020-07-25 09:06 | disposition home or self-care (01) ==
LOC: JP.ED 17:48
DX: F10.129 Alcohol abuse with intoxication, unspecified (principal); J45.909 Unspecified asthma, uncomplicated; K21.9 Gastro-esophageal reflux disease without esophagitis; I25.2 Old myocardial infarction; I25.10 Atherosclerotic heart disease of native coronary artery without angina pectoris; F41.9 Anxiety disorder, unspecified; F32.9 Major depressive disorder, single episode, unspecified; Z91.013 Allergy to seafood; Z88.8 Allergy status to other drugs, medicaments and biological substances; Z91.018 Allergy to other foods; Z79.899 Other long term (current) drug therapy; Z90.49 Acquired absence of other specified parts of digestive tract; Y90.6 Blood alcohol level of 120-199 mg/100 ml
CPT/HCPCS: 36415; 80053; 80305; 80307; 85025; 99284; A9270

== ENCOUNTER 2020-10-06 18:17 | Emergency (ER) | payer MEDICAID ==
[2020-10-06] MEDS ORDERED: Phenazopyridine 95 MG Tab PO ONE (19:08)
--- NOTE | 2020-10-06 19:08 | EDM.PDOC ---
ED HPI GENERAL MEDICAL PROBLEM - General Chief Complaint: General Stated Complaint: UTI Time Seen by Provider: 10/06/20 18:46 Source of Information: Reports: Patient, Old Records, RN Notes Reviewed History Limitations: Reports: No Limitations - History of Present Illness INITIAL COMMENTS - FREE TEXT/NARRATIVE: 45-year-old female presents emergency department the complaint of dysuria, she was evaluated in clinic 2 days prior blood work at that time was fairly unremarkable Abdomen Pain Score (Numeric/FACES): 8 - Related Data Allergies Allergy/AdvReac Type Severity Reaction Status Date / Time Fish Containing Products Allergy Severe Airway Verified 07/24/20 18:24 Tightness ziprasidone [From Geodon] Allergy Severe Airway Verified 07/24/20 18:24 Tightness tree nut Allergy Hives Verified 07/24/20 18:24 lamotrigine [From Lamictal] AdvReac Leg Cramps Verified 07/24/20 18:24 msg Allergy Hives Uncoded 07/24/20 18:24 Home Meds: Home Meds Cyanocobalamin (Vitamin B-12) [B-12] 250 mcg PO DAILY 07/29/17 [History] Gabapentin [Neurontin] 200 mg PO BID 07/29/17 [History] Lactulose 30 ml PO TID 07/29/17 [History] levETIRAcetam [Keppra] 500 mg PO BID 07/29/17 [History] Omeprazole 20 mg PO BID 10/19/17 [History] Cholecalciferol (Vitamin D3) [Vitamin D3] 1 tab PO DAILY 09/16/19 [History] Folic Acid 1 mg PO DAILY 09/16/19 [History] Albuterol Sulfate [Proventil Hfa] 6.7 gm IH Q4H 09/29/19 [History] Albuterol [Proventil Neb Soln] 2.5 mg INH Q4H PRN 09/29/19 [History] Ferrous Gluconate 324 mg PO DAILY 09/29/19 [History] Furosemide 40 mg PO DAILY 09/29/19 [History] Nitroglycerin [Nitrostat] 0.4 mg SL ASDIRECTED PRN 09/29/19 [History] Rifaximin [Xifaxan] 550 mg PO BID 09/29/19 [History] Spironolactone [Aldactone] 100 mg PO DAILY 09/29/19 [History] Thiamine [Vitamin B-1] 1 tab PO DAILY 09/29/19 [History] hydrOXYzine HCL [Hydroxyzine HCl] 100 mg PO TID 09/29/19 [History] oxyCODONE 10 mg PO Q4H PRN 09/29/19 [History] Meclizine [Antivert] 0 mg PO TID 11/28/19 [History] Sucralfate [Carafate] 1 gm PO BEDTIME 40 Days #40 tablet 03/27/20 [Rx] Topiramate 25 mg PO BID 07/22/20 [History] Past Medical History HEENT History: Reports: Hard of Hearing, Impaired Vision Cardiovascular History: Reports: CAD, [place], Other (See Below) Other Cardiovascular History: portal hypertension. [place] was 2002 Respiratory History: Reports: Asthma Gastrointestinal History: Reports: Cirrhosis, GERD, Other (See Below) Other Gastrointestinal History: ascites, liver disease, cholecystitis, hepatic encephalopathy, stent placed in liver, voices that she is in last stages of liver failure. Genitourinary History: Reports: Renal Calculus, Other (See Below) Other Genitourinary History: urethral stent placed that extends to kidney HOSPICE MANAGER History: Reports: , Spontaneous , Other (See Below) Other HOSPICE MANAGER History: Irregular [place] Musculoskeletal History: Reports: Back Pain, Chronic, Fracture, Other (See Below) Other Musculoskeletal History: colar bone, Neurological History: Reports: Brain Injury, CVA, Head Trauma, Seizure, Vertigo, Other (See Below) Other Neuro History: TBI ICH Skull defect Psychiatric History: Reports: Addiction, Anxiety, Depression, Psych Hospitalization(s), Suicide Attempt Hematologic History: Reports: Blood Transfusion(s), Iron Deficiency, Other (See Below) Other Hematologic History: Hypokelemia, hypomagnesemia, hyponatremia Oncologic (Cancer) History: Reports: Cervix - Infectious Disease History Infectious Disease History: Reports: Chicken Pox - Past Surgical History Head Surgeries/Procedures: Reports: None HEENT Surgical History: Reports: Adenoidectomy, Tonsillectomy Cardiovascular Surgical History: Reports: Coronary Artery Bypass Other Cardiovascular Surgeries/Procedures: cabg x 1 Respiratory Surgical History: Reports: None GI Surgical History: Reports: Appendectomy, Cholecystectomy, EGD Female Surgical History: Reports: Cystectomy, Other (See Below) Other Female Surgeries/Procedures: removal of abscess from left breast Neurological Surgical History: Reports: None Musculoskeletal Surgical History: Reports: None, Carpal Tunnel Oncologic Surgical History: Reports: None Dermatological Surgical History: Reports: None Social & Family History - Family History Family Medical History: No Pertinent Family History - Tobacco Use Tobacco Use Status *Q: Current Every Day Tobacco User Years of Tobacco use: 35 Packs/Tins Daily: 0.5 - Caffeine Use Caffeine Use: Reports: Coffee Caffeine Use Comment: one cup of coffee and one cup of tea - Recreational Drug Use Recreational Drug Use: No - Living Situation & Occupation Living situation: Reports: Single Occupation: Disabled (lives in Apartment, Sister and Uncle live in same building.) ED ROS GENERAL - Review of Systems Review Of Systems: See Below Constitutional: Reports: Fever Respiratory: Reports: No Symptoms Cardiovascular: Reports: No Symptoms GI/Abdominal: Reports: Abdominal Pain ED EXAM, GENERAL - Physical Exam Exam: See Below Exam Limited By: No Limitations General Appearance: Alert, WD/WN, No Apparent Distress Respiratory/Chest: No Respiratory Distress, Lungs Clear, Normal Breath Sounds, No Accessory Muscle Use, Chest Non-Tender Cardiovascular: Regular Rate, Rhythm, No Murmur Course - Vital Signs Last Recorded V/S: Last Vital Signs Temp 99.5 F 10/06/20 18:40 Pulse 66 10/06/20 18:40 Resp 16 10/06/20 18:40 BP 117/47 L 10/06/20 18:40 Pulse Ox 98 10/06/20 18:40 - Orders/Labs/Meds Orders: Active Orders 24 hr Category Date Time Status CBC WITH AUTO DIFF [HEME] Stat Lab 10/06/20 18:51 Ordered COMPREHENSIVE METABOLIC PN,CMP [CHEM] Stat Lab 10/06/20 18:51 Ordered UA W/MICROSCOPIC [URIN] Urgent Lab 10/06/20 18:20 Ordered Departure - Departure Time of Disposition: 19:10 Disposition: Home, Self-Care 01 Condition: Fair Clinical Impression: Bladder spasms, Cystitis - Discharge Information Referrals: Zelda Rodriguez DO [Primary Care Provider] - Additional Instructions: Try the Pyridium up to three times a day, please contact your primary care in the morning for possible change in antibiotics Sepsis Event Note (ED) - Evaluation Sepsis Screening Result: No Definite Risk - Focused Exam Vital Signs: Vital Signs Temp Pulse Resp BP Pulse Ox 01/20/21 18:40 99.5 F 66 16 117/47 L 98 10/06/20 18:36 99.5 F 66 16 117/47 L 98 - My Orders Last 24 Hours: My Active Orders 10/06/20 18:20 UA W/MICROSCOPIC [URIN] Urgent 10/06/20 18:51 CBC WITH AUTO DIFF [HEME] Stat COMPREHENSIVE METABOLIC PN,CMP [CHEM] Stat - Assessment/Plan Last 24 Hours: My Active Orders 10/06/20 18:20 UA W/MICROSCOPIC [URIN] Urgent 10/06/20 18:51 CBC WITH AUTO DIFF [HEME] Stat COMPREHENSIVE METABOLIC PN,CMP [CHEM] Stat Plan: Assessment Acuity = acute Site and laterality = urinary spasm Etiology = urinary tract infection Manifestations = none Location of injury = Home Lab values = none I did review CBC CMP urinalysis urine culture from clinic visit 2 days ago with her, Covid negative Plan She is restricted patient so I cannot provide any medications for her unless her primary care approves them elected to try Pyridium she received a dose 190 mg x 1 now she will contact her clinic provider in the morning This note was dictated using [employer] voice recognition software please call with any questions on syntax or grammar.
== END 2020-10-06 19:19 | disposition home or self-care (01) ==
LOC: JP.ED 18:17
DX: N30.90 Cystitis, unspecified without hematuria (principal); N32.89 Other specified disorders of bladder; I25.10 Atherosclerotic heart disease of native coronary artery without angina pectoris; I25.2 Old myocardial infarction; J45.909 Unspecified asthma, uncomplicated; K21.9 Gastro-esophageal reflux disease without esophagitis; R56.9 Unspecified convulsions; Z72.0 Tobacco use; Z91.013 Allergy to seafood; Z88.8 Allergy status to other drugs, medicaments and biological substances; Z91.018 Allergy to other foods; Z79.899 Other long term (current) drug therapy
CPT/HCPCS: 99283

== ENCOUNTER 2020-10-22 22:52 | Emergency (ER) | payer MEDICAID ==
--- NOTE | 2020-10-23 00:21 | EDM.PDOC ---
ED HPI GENERAL MEDICAL PROBLEM - General Chief Complaint: Exposure to Heat or Cold Stated Complaint: MEDICAL VIA MAGALIA Time Seen by Provider: 10/22/20 22:56 Source of Information: Reports: EMS History Limitations: Reports: Altered Mental Status, Intoxication - History of Present Illness INITIAL COMMENTS - FREE TEXT/NARRATIVE: Cris is a 45-year-old female presenting to the ED via [facility] for evaluation of possible hypothermia. Patient was found lying outside of her apartment on the concrete. It was unclear how long she was in the elements, however, it is - 20 with wind chill outside tonight. The patient was brought into the ED code 3 although she was responsive. The patient is well-known to me from prior evaluations. She is not able to answer questions but it does appear that she may have ethanol on board. She is moving all extremities. Her rectal temperature was 97.8 F. - Related Data Allergies Allergy/AdvReac Type Severity Reaction Status Date / Time Fish Containing Products Allergy Severe Airway Verified 07/24/20 18:24 Tightness ziprasidone [From Geodon] Allergy Severe Airway Verified 07/24/20 18:24 Tightness tree nut Allergy Hives Verified 07/24/20 18:24 lamotrigine [From Lamictal] AdvReac Leg Cramps Verified 07/24/20 18:24 msg Allergy Hives Uncoded 07/24/20 18:24 Home Meds: Home Meds Cyanocobalamin (Vitamin B-12) [B-12] 250 mcg PO DAILY 07/29/17 [History] Gabapentin [Neurontin] 200 mg PO BID 07/29/17 [History] Lactulose 30 ml PO TID 07/29/17 [History] levETIRAcetam [Keppra] 500 mg PO BID 07/29/17 [History] Omeprazole 20 mg PO BID 10/19/17 [History] Cholecalciferol (Vitamin D3) [Vitamin D3] 1 tab PO DAILY 09/16/19 [History] Folic Acid 1 mg PO DAILY 09/16/19 [History] Albuterol Sulfate [Proventil Hfa] 6.7 gm IH Q4H 09/29/19 [History] Albuterol [Proventil Neb Soln] 2.5 mg INH Q4H PRN 09/29/19 [History] Ferrous Gluconate 324 mg PO DAILY 09/29/19 [History] Furosemide 40 mg PO DAILY 09/29/19 [History] Nitroglycerin [Nitrostat] 0.4 mg SL ASDIRECTED PRN 09/29/19 [History] Rifaximin [Xifaxan] 550 mg PO BID 09/29/19 [History] Spironolactone [Aldactone] 100 mg PO DAILY 09/29/19 [History] Thiamine [Vitamin B-1] 1 tab PO DAILY 09/29/19 [History] hydrOXYzine HCL [Hydroxyzine HCl] 100 mg PO TID 09/29/19 [History] oxyCODONE 10 mg PO Q4H PRN 09/29/19 [History] Meclizine [Antivert] 0 mg PO TID 11/28/19 [History] Sucralfate [Carafate] 1 gm PO BEDTIME 40 Days #40 tablet 03/27/20 [Rx] Topiramate 25 mg PO BID 07/22/20 [History] Past Medical History HEENT History: Reports: Hard of Hearing, Impaired Vision Cardiovascular History: Reports: CAD, [place], Other (See Below) Other Cardiovascular History: portal hypertension. [place] was 2002 Respiratory History: Reports: Asthma Gastrointestinal History: Reports: Cirrhosis, GERD, Other (See Below) Other Gastrointestinal History: ascites, liver disease, cholecystitis, hepatic encephalopathy, stent placed in liver, voices that she is in last stages of liver failure. 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: Reports: , Spontaneous , Other (See Below) Other LEARNING AND DEVELOPMENT ANALYST History: Irregular [place] Musculoskeletal History: Reports: Back Pain, Chronic, Fracture, Other (See Below) Other Musculoskeletal History: colar bone, Neurological History: Reports: Brain Injury, CVA, Head Trauma, Seizure, Vertigo, Other (See Below) Other Neuro History: TBI ICH Skull defect Psychiatric History: Reports: Addiction, Anxiety, Depression, Psych Hospitalization(s), Suicide Attempt Hematologic History: Reports: Blood Transfusion(s), Iron Deficiency, Other (See Below) Other Hematologic History: Hypokelemia, hypomagnesemia, hyponatremia Oncologic (Cancer) History: Reports: Cervix - Infectious Disease History Infectious Disease History: Reports: Chicken Pox - Past Surgical History Head Surgeries/Procedures: Reports: None HEENT Surgical History: Reports: Adenoidectomy, Tonsillectomy Cardiovascular Surgical History: Reports: Coronary Artery Bypass Other Cardiovascular Surgeries/Procedures: cabg x 1 Respiratory Surgical History: Reports: None GI Surgical History: Reports: Appendectomy, Cholecystectomy, EGD Female Surgical History: Reports: Cystectomy, Other (See Below) Other Female Surgeries/Procedures: removal of abscess from left breast Neurological Surgical History: Reports: None Musculoskeletal Surgical History: Reports: None, Carpal Tunnel Oncologic Surgical History: Reports: None Dermatological Surgical History: Reports: None Social & Family History - Family History Family Medical History: No Pertinent Family History - Tobacco Use Tobacco Use Status *Q: Current Every Day Tobacco User Years of Tobacco use: 30 Packs/Tins Daily: 0.5 - Caffeine Use Caffeine Use: Reports: Coffee Caffeine Use Comment: one cup of coffee and one cup of tea - Alcohol Use Days Per Week of Alcohol Use: 7 Number of Drinks Per Day: 3 Total Drinks Per Week: 21 Date of Last Drink: 10/22/20 Time of Last Drink: 21:00 - Recreational Drug Use Recreational Drug Use: Yes Drug Use in Last 12 Months: No - Living Situation & Occupation Living situation: Reports: Single Occupation: Disabled (lives in Apartment, Sister and Uncle live in same building.) ED ROS GENERAL - Review of Systems Review Of Systems: Unable To Obtain Reason Not Obtained: Due to intoxication and limited ability to answer questions. Respiratory: Reports: No Symptoms Cardiovascular: Reports: No Symptoms GI/Abdominal: Reports: No Symptoms : Reports: No Symptoms Musculoskeletal: Reports: No Symptoms Skin: Reports: No Symptoms. Denies: Change in Color Psychiatric: Reports: Other (Alcohol intoxication. Patient reports that she drinks 3 wine coolers tonight.) ED EXAM, GENERAL - Physical Exam Exam: See Below Exam Limited By: Intoxication General Appearance: Anxious, Mild Distress Eye Exam: Bilateral Eye: EOMI, PERRL Throat/Mouth: Normal Inspection, Normal Lips, Normal Oropharynx, Other (Slurring of her words.) Head: Atraumatic, Other (Patient has a substantial craniotomy with loss of part of the cranium over the right parietal region.) Neck: Normal Inspection, Supple Respiratory/Chest: No Respiratory Distress, Lungs Clear, Normal Breath Sounds Cardiovascular: Normal Peripheral Pulses, Regular Rate, Rhythm, No Murmur Peripheral Pulses: 2+: Radial (L), Radial (R), Posterior Tibial (L), Posterior Tibial (R) GI/Abdominal: Normal Bowel Sounds, Soft, Non-Tender Back Exam: Normal Inspection, Full Range of Motion Extremities: Normal Inspection, Normal Range of Motion, Normal Capillary Refill Neurological: Alert, No Motor/Sensory Deficits Skin Exam: Warm, Dry, Intact, Normal Color, Other (No evidence for frostbite) Lymphatic: No Adenopathy Course - Vital Signs Last Recorded V/S: Last Vital Signs Temp 36.9 C 10/22/20 23:13 Pulse 65 10/22/20 23:13 Resp 15 10/22/20 23:13 BP 111/63 10/22/20 23:13 Pulse Ox 98 10/22/20 23:13 - Orders/Labs/Meds Orders: Active Orders 24 hr Category Date Time Status EKG Documentation Completion [RC] ASDIRECTED Care 10/22/20 22:58 Active EKG 12 Lead [EK] Routine Ther 10/22/20 22:57 Ordered Labs: Laboratory Tests 10/22/20 10/22/20 10/22/20 Range/Units 23:01 23:01 23:07 WBC 4.5 (4.5-11.0) K/uL RBC 3.61 (3.30-5.50) M/uL Hgb 11.8 L (12.0-15.0) g/dL Hct 34.5 L (36.0-48.0) % MCV 96 (80-98) fL MCH 33 H (27-31) pg MCHC 34 (32-36) % Plt Count 95 L (150-400) K/uL Neut % (Auto) 26 L (36-66) % Lymph % (Auto) 61 H (24-44) % [place] % (Auto) 10 H (2-6) % Eos % (Auto) 3 (2-4) % Baso % (Auto) 1 (0-1) % Sodium (140-148) mmol/L Potassium (3.6-5.2) mmol/L Chloride (100-108) mmol/L Carbon Dioxide (21-32) mmol/L Anion Gap (5.0-14.0) mmol/L BUN (7-18) mg/dL Creatinine (0.6-1.0) mg/dL Est Cr Clr Drug Dosing mL/min Estimated GFR (MDRD) (>60) Glucose (74-106) mg/dL Calcium (8.5-10.1) mg/dL Total Bilirubin (0.2-1.0) mg/dL AST (15-37) U/L ALT (12-78) U/L Alkaline Phosphatase (46-116) U/L Total Protein (6.4-8.2) g/dL Albumin (3.4-5.0) g/dL Globulin (2.3-3.5) g/dL Albumin/Globulin Ratio (1.2-2.2) Urine Color Yellow (YELLOW) Urine Appearance Clear (CLEAR) Urine pH 7.0 (5.0-8.0) Ur Specific [place] 1.010 (1.008-1.030) Urine Protein Negative (NEGATIVE) mg/dL Urine Glucose (UA) Negative (NEGATIVE) mg/dL Urine Ketones Negative (NEGATIVE) mg/dL Urine Occult Blood Trace-intact H (NEGATIVE) Urine Nitrite Negative (NEGATIVE) Urine Bilirubin Negative (NEGATIVE) Urine Urobilinogen 0.2 (0.2-1.0) EU/dL Ur Leukocyte Esterase Negative (NEGATIVE) Urine RBC 0-5 (0-5) Urine WBC 0-5 (0-5) Ur Epithelial Cells Rare Amorphous Sediment Not seen Urine Bacteria Not seen Urine Mucus Not seen Urine Opiates Screen Negative (NEGATIVE) Ur Oxycodone Screen Presumptive positive H (NEGATIVE) Urine Methadone Screen Negative (NEGATIVE) Ur Propoxyphene Screen Negative (NEGATIVE) Ur Barbiturates Screen Negative (NEGATIVE) Ur Tricyclics Screen Negative (NEGATIVE) Ur Phencyclidine Scrn Negative (NEGATIVE) Ur Amphetamine Screen Negative (NEGATIVE) U Methamphetamines Scrn Negative (NEGATIVE) Urine MDMA Screen Negative (NEGATIVE) U Benzodiazepines Scrn Negative (NEGATIVE) U Cocaine Metab Screen Negative (NEGATIVE) U Marijuana (THC) Screen Negative (NEGATIVE) Ethyl Alcohol mg/dL 10/22/20 10/22/20 Range/Units 23:07 23:07 WBC (4.5-11.0) K/uL RBC (3.30-5.50) M/uL Hgb (12.0-15.0) g/dL Hct (36.0-48.0) % MCV (80-98) fL MCH (27-31) pg MCHC (32-36) % Plt Count (150-400) K/uL Neut % (Auto) (36-66) % Lymph % (Auto) (24-44) % [place] % (Auto) (2-6) % Eos % (Auto) (2-4) % Baso % (Auto) (0-1) % Sodium 145 (140-148) mmol/L Potassium 3.3 L (3.6-5.2) mmol/L Chloride 111 H (100-108) mmol/L Carbon Dioxide 24 (21-32) mmol/L Anion Gap 13.3 (5.0-14.0) mmol/L BUN 7 (7-18) mg/dL Creatinine 0.8 (0.6-1.0) mg/dL Est Cr Clr Drug Dosing 78.23 mL/min Estimated GFR (MDRD) > 60 (>60) Glucose 137 H (74-106) mg/dL Calcium 8.4 L (8.5-10.1) mg/dL Total Bilirubin 0.2 D (0.2-1.0) mg/dL AST 23 (15-37) U/L ALT 19 (12-78) U/L Alkaline Phosphatase 126 H (46-116) U/L Total Protein 5.8 L (6.4-8.2) g/dL Albumin 2.8 L (3.4-5.0) g/dL Globulin 3.0 (2.3-3.5) g/dL Albumin/Globulin Ratio 0.9 L (1.2-2.2) Urine Color (YELLOW) Urine Appearance (CLEAR) Urine pH (5.0-8.0) Ur Specific [place] (1.008-1.030) Urine Protein (NEGATIVE) mg/dL Urine Glucose (UA) (NEGATIVE) mg/dL Urine Ketones (NEGATIVE) mg/dL Urine Occult Blood (NEGATIVE) Urine Nitrite (NEGATIVE) Urine Bilirubin (NEGATIVE) Urine Urobilinogen (0.2-1.0) EU/dL Ur Leukocyte Esterase (NEGATIVE) Urine RBC (0-5) Urine WBC (0-5) Ur Epithelial Cells Amorphous Sediment Urine Bacteria Urine Mucus Urine Opiates Screen (NEGATIVE) Ur Oxycodone Screen (NEGATIVE) Urine Methadone Screen (NEGATIVE) Ur Propoxyphene Screen (NEGATIVE) Ur Barbiturates Screen (NEGATIVE) Ur Tricyclics Screen (NEGATIVE) Ur Phencyclidine Scrn (NEGATIVE) Ur Amphetamine Screen (NEGATIVE) U Methamphetamines Scrn (NEGATIVE) Urine MDMA Screen (NEGATIVE) U Benzodiazepines Scrn (NEGATIVE) U Cocaine Metab Screen (NEGATIVE) U Marijuana (THC) Screen (NEGATIVE) Ethyl Alcohol 198 mg/dL - Re-Assessments/Exams Free Text/Narrative Re-Assessment/Exam: 10/23/20 00:24 the patient is normothermic upon arrival to the ED. We did keep her under the bear hugger warmer and warm blankets as well as give her IV fluid hydration. Her labs look very similar to previous labs with mild hypokalemia. She is intoxicated with a blood alcohol of 0.198. At this time, I do not believe that we need to keep her in the ER for intoxication. We will contact her sister to retrieve her and ensure that she gets back in her apartment. Departure - Departure Time of Disposition: 00:25 Disposition: Home, Self-Care 01 Condition: Fair Clinical Impression: Alcohol intoxication Qualifiers: Complication of substance-induced condition: with unspecified complication Qualified Code(s): F10.929 - Alcohol use, unspecified with intoxication, unspecified - Discharge Information *PRESCRIPTION DRUG MONITORING PROGRAM REVIEWED*: Not Applicable *COPY OF PRESCRIPTION DRUG MONITORING REPORT IN PATIENT NOMAN: Not Applicable Instructions: Alcohol Intoxication Referrals: PCP,None [Primary Care Provider] - Care Plan Goals: I would be very careful drinking alcohol and going outside in this extremely cold weather. You could get left out of your apartment again and succumb to freezing in a short period of time. Sepsis Event Note (ED) - Evaluation Sepsis Screening Result: No Definite Risk - Focused Exam Vital Signs: Vital Signs Temp Temp Pulse Resp BP Pulse Ox 10/22/20 23:13 36.9 C 65 15 111/63 98 10/22/20 23:01 36.1 C 65 12 101/52 L 96 - Problem List & Annotations (1) Alcohol intoxication SNOMED Code(s): 32571630 Code(s): F10.929 - ALCOHOL USE, UNSPECIFIED WITH INTOXICATION, UNSPECIFIED Status: Acute Priority: High Current Visit: Yes Qualifiers: Complication of substance-induced condition: with unspecified complication Qualified Code(s): F10.929 - Alcohol use, unspecified with intoxication, unspecified - Problem List Review Problem List Initiated/Reviewed/Updated: Yes - My Orders Last 24 Hours: My Active Orders 10/22/20 22:57 EKG 12 Lead [EK] Routine 10/22/20 22:58 EKG Documentation Completion [RC] ASDIRECTED - Assessment/Plan Last 24 Hours: My Active Orders 10/22/20 22:57 EKG 12 Lead [EK] Routine 10/22/20 22:58 EKG Documentation Completion [RC] ASDIRECTED
== END 2020-10-23 01:12 | disposition home or self-care (01) ==
LOC: JP.ED 22:52
DX: F10.129 Alcohol abuse with intoxication, unspecified (principal); I25.10 Atherosclerotic heart disease of native coronary artery without angina pectoris; J45.909 Unspecified asthma, uncomplicated; K21.9 Gastro-esophageal reflux disease without esophagitis; I25.2 Old myocardial infarction; D50.9 Iron deficiency anemia, unspecified; Y90.6 Blood alcohol level of 120-199 mg/100 ml; Z72.0 Tobacco use; Z91.013 Allergy to seafood; Z88.8 Allergy status to other drugs, medicaments and biological substances; Z91.018 Allergy to other foods; Z79.899 Other long term (current) drug therapy; Z98.890 Other specified postprocedural states
CPT/HCPCS: 36415; 80053; 80305-QW; 80307; 81001; 85025; 93005; 99283; 99284-25

== ENCOUNTER 2020-10-25 01:00 | Emergency (ER) | payer MEDICAID ==
--- NOTE | 2020-10-25 01:25 | EDM.PDOC ---
ED HPI GENERAL MEDICAL PROBLEM - General Chief Complaint: Respiratory Problem Stated Complaint: BREATHING TROUBLE Time Seen by Provider: 10/25/20 01:20 Source of Information: Reports: Patient, Old Records, RN History Limitations: Reports: Physical Impairment - History of Present Illness INITIAL COMMENTS - FREE TEXT/NARRATIVE: 45 yo female presents with spells of waking of transiently SOB for about a week. Has not been to the clinic. No fever. Is fine between spells. Only happens when she is sound asleep. Has no dx of sleep apnea. Does not feel like it is her GERD. Onset: Sudden (each episode) Onset Date: 10/18/20 Duration: Day(s): (7), Waxing/Waning Location: Reports: Chest Quality: Reports: Other (minimal sternal tenderness, not related to her chief complaint tonight. ) Severity: Moderate Improves with: Reports: Other (waking up and catching her breath. ) Worsens with: Reports: Other (deep sleep) Context: Reports: Other (see HPI) Associated Symptoms: Reports: Shortness of Breath Treatments DISTRIBUTION TECH: Reports: Other (see below) (none) Chest Pain Score (Numeric/FACES): 8 - Related Data Allergies Allergy/AdvReac Type Severity Reaction Status Date / Time Fish Containing Products Allergy Severe Airway Verified 07/24/20 18:24 Tightness ziprasidone [From Geodon] Allergy Severe Airway Verified 07/24/20 18:24 Tightness tree nut Allergy Hives Verified 07/24/20 18:24 lamotrigine [From Lamictal] AdvReac Leg Cramps Verified 07/24/20 18:24 msg Allergy Hives Uncoded 07/24/20 18:24 Home Meds: Home Meds Cyanocobalamin (Vitamin B-12) [B-12] 250 mcg PO DAILY 07/29/17 [History] Gabapentin [Neurontin] 200 mg PO BID 07/29/17 [History] Lactulose 30 ml PO TID 07/29/17 [History] levETIRAcetam [Keppra] 500 mg PO BID 07/29/17 [History] Omeprazole 20 mg PO BID 10/19/17 [History] Cholecalciferol (Vitamin D3) [Vitamin D3] 1 tab PO DAILY 09/16/19 [History] Folic Acid 1 mg PO DAILY 09/16/19 [History] Albuterol Sulfate [Proventil Hfa] 6.7 gm IH Q4H 09/29/19 [History] Albuterol [Proventil Neb Soln] 2.5 mg INH Q4H PRN 09/29/19 [History] Ferrous Gluconate 324 mg PO DAILY 09/29/19 [History] Furosemide 40 mg PO DAILY 09/29/19 [History] Nitroglycerin [Nitrostat] 0.4 mg SL ASDIRECTED PRN 09/29/19 [History] Rifaximin [Xifaxan] 550 mg PO BID 09/29/19 [History] Spironolactone [Aldactone] 100 mg PO DAILY 09/29/19 [History] Thiamine [Vitamin B-1] 1 tab PO DAILY 09/29/19 [History] hydrOXYzine HCL [Hydroxyzine HCl] 100 mg PO TID 09/29/19 [History] oxyCODONE 10 mg PO Q4H PRN 09/29/19 [History] Meclizine [Antivert] 0 mg PO TID 11/28/19 [History] Sucralfate [Carafate] 1 gm PO BEDTIME 40 Days #40 tablet 03/27/20 [Rx] Topiramate 25 mg PO BID 07/22/20 [History] Past Medical History HEENT History: Reports: Hard of Hearing, Impaired Vision Cardiovascular History: Reports: CAD, [place], Other (See Below) Other Cardiovascular History: portal hypertension. [place] was 2002 Respiratory History: Reports: Asthma Gastrointestinal History: Reports: Cirrhosis, GERD, Other (See Below) Other Gastrointestinal History: ascites, liver disease, cholecystitis, hepatic encephalopathy, stent placed in liver, voices that she is in last stages of liver failure. 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: , Spontaneous , Other (See Below) Other PUPPET ENGINEER History: Irregular [place] Musculoskeletal History: Reports: Back Pain, Chronic, Fracture, Other (See Below) Other Musculoskeletal History: colar bone, Neurological History: Reports: Brain Injury, CVA, Head Trauma, Seizure, Vertigo, Other (See Below) Other Neuro History: TBI ICH Skull defect Psychiatric History: Reports: Addiction, Anxiety, Depression, Psych Hospitalization(s), Suicide Attempt Hematologic History: Reports: Blood Transfusion(s), Iron Deficiency, Other (See Below) Other Hematologic History: Hypokelemia, hypomagnesemia, hyponatremia Oncologic (Cancer) History: Reports: Cervix - Infectious Disease History Infectious Disease History: Reports: Chicken Pox - Past Surgical History Head Surgeries/Procedures: Reports: None HEENT Surgical History: Reports: Adenoidectomy, Tonsillectomy Cardiovascular Surgical History: Reports: Coronary Artery Bypass Other Cardiovascular Surgeries/Procedures: cabg x 1 Respiratory Surgical History: Reports: None GI Surgical History: Reports: Appendectomy, Cholecystectomy, EGD Female Surgical History: Reports: Cystectomy, Other (See Below) Other Female Surgeries/Procedures: removal of abscess from left breast Neurological Surgical History: Reports: None Musculoskeletal Surgical History: Reports: None, Carpal Tunnel Oncologic Surgical History: Reports: None Dermatological Surgical History: Reports: None Social & Family History - Family History Family Medical History: No Pertinent Family History - Tobacco Use Tobacco Use Status *Q: Current Every Day Tobacco User Years of Tobacco use: 27 Packs/Tins Daily: 0.5 - Caffeine Use Caffeine Use: Reports: Coffee Caffeine Use Comment: one cup of coffee and one cup of tea - Recreational Drug Use Recreational Drug Use: No - Living Situation & Occupation Living situation: Reports: Single Occupation: Disabled (lives in Apartment, Sister and Uncle live in same [facility]) ED ROS GENERAL - Review of Systems Review Of Systems: See Below Constitutional: Reports: No Symptoms HEENT: Reports: No Symptoms Respiratory: Reports: Shortness of Breath Cardiovascular: Reports: No Symptoms GI/Abdominal: Reports: No Symptoms Musculoskeletal: Reports: No Symptoms Skin: Reports: No Symptoms Neurological: Reports: No Symptoms Psychiatric: Reports: No Symptoms ED EXAM, GENERAL - Physical Exam Exam: See Below Exam Limited By: No Limitations General Appearance: Alert, WD/WN, No Apparent Distress Eye Exam: Bilateral Eye: Normal Inspection Ears: Normal External Exam, Normal Canal, Hearing Grossly Normal Ear Exam: Bilateral Ear: Auricle Normal, Canal Normal Nose: Normal Inspection, No Blood Throat/Mouth: Normal Inspection, Normal Lips, Normal Oropharynx, Normal Voice, No Airway Compromise Head: Atraumatic, Normocephalic Neck: Normal Inspection Respiratory/Chest: No Respiratory Distress, Lungs Clear, Normal Breath Sounds, No Accessory Muscle Use. No: Chest Non-Tender (minimal sternal tenderness present) Cardiovascular: Regular Rate, Rhythm, No Edema GI/Abdominal: Soft, Non-Tender Extremities: Normal Inspection Neurological: Alert, Oriented, CN II-XII Intact, Normal Cognition, No Motor/Sensory Deficits Psychiatric: Normal Affect, Normal Mood Skin Exam: Warm, Dry, Intact, Normal Color, No Rash Course - Vital Signs Last Recorded V/S: Last Vital Signs Temp 36.9 C 10/25/20 01:11 Pulse 62 10/25/20 01:11 Resp 16 10/25/20 01:11 BP 109/45 L 10/25/20 01:11 Pulse Ox 98 10/25/20 01:11 Departure - Departure Time of Disposition: 01:39 Disposition: Home, Self-Care 01 Condition: Good Clinical Impression: Sleep apnea Qualifiers: Sleep apnea type: unspecified type Qualified Code(s): G47.30 - Sleep apnea, unspecified - Discharge Information *PRESCRIPTION DRUG MONITORING PROGRAM REVIEWED*: Not Applicable *COPY OF PRESCRIPTION DRUG MONITORING REPORT IN PATIENT NOMAN: Not Applicable Instructions: Sleep Apnea, [id number] Referrals: Zelda Rodriguez DO [Primary Care Provider] - Forms: ED Department Discharge Additional Instructions: Someone will contact you Sunday about an appt with Dr. Rodriguez to discuss whether a sleep study would be right for you. Sepsis Event Note (ED) - Evaluation Sepsis Screening Result: No Definite Risk - Focused Exam Vital Signs: Vital Signs Temp Pulse Resp BP Pulse Ox 10/25/20 01:11 36.9 C 62 16 109/45 L 98
== END 2020-10-25 01:50 | disposition home or self-care (01) ==
LOC: JP.ED 01:00
DX: G47.30 Sleep apnea, unspecified (principal); I25.10 Atherosclerotic heart disease of native coronary artery without angina pectoris; I25.2 Old myocardial infarction; J45.909 Unspecified asthma, uncomplicated; K21.9 Gastro-esophageal reflux disease without esophagitis; Z86.73 Personal history of transient ischemic attack (TIA), and cerebral infarction without residual deficits; Z72.0 Tobacco use; Z91.013 Allergy to seafood; Z88.8 Allergy status to other drugs, medicaments and biological substances; Z79.899 Other long term (current) drug therapy
CPT/HCPCS: 99282; 99283-25

== ENCOUNTER 2020-11-13 05:58 | Emergency (ER) | payer MEDICAID ==
--- NOTE | 2020-11-13 06:09 | EDM.PDOC ---
ED HPI GENERAL MEDICAL PROBLEM - General Chief Complaint: Abdominal Pain Stated Complaint: AMMONIA LEVELS HIGH VIA [facility] Time Seen by Provider: 11/13/20 06:01 Source of Information: Reports: Patient, EMS, Old Records History Limitations: Reports: No Limitations - History of Present Illness INITIAL COMMENTS - FREE TEXT/NARRATIVE: Claudia is a 45-year-old female who is well-known to me from previous encounters who presents via [facility] for evaluation of right lower quadrant abdominal pain and "an elevated ammonia level" causing her to hallucinate. The patient reports that she is seeing her sister sitting in the chair which she has reported on previous occasions. Patient denies any alcohol or illicit drug use. She states that she has not used alcohol in over a month, however, I saw her on 10/23/2020 where she was found outside of her front door laying in a snow bank and brought in by EMS as a possible hypothermic exposure and at that time her alcohol level was 198. 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 She also has a history of chronic alcoholism, vascular dementia with behavioral disturbance, mixed vascular and neurodegenerative dementia, cirrhosis with hepatic encephalopathy, portal hypertension, GERD, and intermittent constipation. Patient last had labs done at the [facility] on 10/11/2020 at which time her creatinine was 1.0. Her last ammonia level was drawn on 10/11/2020 was 63. The year prior it was 44. The patient is on lactulose, however, she is complaining of constipation which would make me question whether or not she actually is taking her lactulose. She is also on oxycodone 10 g every 4 hours as needed which is long-term. She denies any fever but says that she has chills. Again she denies any alcohol use. She states that her abdominal pain started at 0700 hrs. yesterday. She reportedly tried to contact Dr. Rodriguez but left a message. Had not heard back from Dr. Rodriguez. RLQ Pain Score (Numeric/FACES): 5 - Related Data Allergies Allergy/AdvReac Type Severity Reaction Status Date / Time Fish Containing Products Allergy Severe Airway Verified 11/13/20 06:00 Tightness ziprasidone [From Geodon] Allergy Severe Airway Verified 11/13/20 06:00 Tightness tree nut Allergy Hives Verified 11/13/20 06:00 lamotrigine [From Lamictal] AdvReac Leg Cramps Verified 11/13/20 06:00 msg Allergy Hives Uncoded 11/13/20 06:00 Home Meds: Home Meds Cyanocobalamin (Vitamin B-12) [B-12] 250 mcg PO DAILY 07/29/17 [History] Gabapentin [Neurontin] 200 mg PO BID 07/29/17 [History] Lactulose 30 ml PO TID 07/29/17 [History] levETIRAcetam [Keppra] 500 mg PO BID 07/29/17 [History] Omeprazole 20 mg PO BID 10/19/17 [History] Cholecalciferol (Vitamin D3) [Vitamin D3] 1 tab PO DAILY 09/16/19 [History] Folic Acid 1 mg PO DAILY 09/16/19 [History] Albuterol Sulfate [Proventil Hfa] 6.7 gm IH Q4H 09/29/19 [History] Albuterol [Proventil Neb Soln] 2.5 mg INH Q4H PRN 09/29/19 [History] Ferrous Gluconate 324 mg PO DAILY 09/29/19 [History] Furosemide 40 mg PO DAILY 09/29/19 [History] Nitroglycerin [Nitrostat] 0.4 mg SL ASDIRECTED PRN 09/29/19 [History] Rifaximin [Xifaxan] 550 mg PO BID 09/29/19 [History] Spironolactone [Aldactone] 100 mg PO DAILY 09/29/19 [History] Thiamine [Vitamin B-1] 1 tab PO DAILY 09/29/19 [History] hydrOXYzine HCL [Hydroxyzine HCl] 100 mg PO TID 09/29/19 [History] oxyCODONE 10 mg PO Q4H PRN 09/29/19 [History] Meclizine [Antivert] 0 mg PO TID 11/28/19 [History] Sucralfate [Carafate] 1 gm PO BEDTIME 40 Days #40 tablet 03/27/20 [Rx] Topiramate 25 mg PO BID 07/22/20 [History] Past Medical History HEENT History: Reports: Hard of Hearing, Impaired Vision Cardiovascular History: Reports: CAD, NH, Other (See Below) Other Cardiovascular History: portal hypertension. NH was 2002 Respiratory History: Reports: Asthma Gastrointestinal History: Reports: Cirrhosis, GERD, Other (See Below) Other Gastrointestinal History: ascites, liver disease, cholecystitis, hepatic encephalopathy, stent placed in liver, voices that she is in last stages of liver failure. Genitourinary History: Reports: Renal Calculus, Other (See Below) Other Genitourinary History: urethral stent placed that extends to kidney SENIOR ACCOUNT REPRESENTATIVE History: Reports: , Spontaneous , Other (See Below) Other SENIOR ACCOUNT REPRESENTATIVE History: Irregular [place] Musculoskeletal History: Reports: Back Pain, Chronic, Fracture, Other (See Below) Other Musculoskeletal History: colar bone, Neurological History: Reports: Brain Injury, CVA, Head Trauma, Seizure, Vertigo, Other (See Below) Other Neuro History: TBI ICH Skull defect Psychiatric History: Reports: Addiction, Anxiety, Depression, Psych Hospitalization(s), Suicide Attempt Hematologic History: Reports: Blood Transfusion(s), Iron Deficiency, Other (See Below) Other Hematologic History: Hypokelemia, hypomagnesemia, hyponatremia Oncologic (Cancer) History: Reports: Cervix - Infectious Disease History Infectious Disease History: Reports: Chicken Pox - Past Surgical History Head Surgeries/Procedures: Reports: None HEENT Surgical History: Reports: Adenoidectomy, Tonsillectomy Cardiovascular Surgical History: Reports: Coronary Artery Bypass Other Cardiovascular Surgeries/Procedures: cabg x 1 Respiratory Surgical History: Reports: None GI Surgical History: Reports: Appendectomy, Cholecystectomy, EGD Female Surgical History: Reports: Cystectomy, Other (See Below) Other Female Surgeries/Procedures: removal of abscess from left breast Neurological Surgical History: Reports: None Musculoskeletal Surgical History: Reports: None, Carpal Tunnel Oncologic Surgical History: Reports: None Dermatological Surgical History: Reports: None Social & Family History - Family History Family Medical History: No Pertinent Family History - Caffeine Use Caffeine Use: Reports: Coffee Caffeine Use Comment: one cup of coffee and one cup of tea - Living Situation & Occupation Living situation: Reports: Single Occupation: Disabled (lives in Apartment, Sister and Uncle live in same building.) ED ROS GENERAL - Review of Systems Review Of Systems: See Below Constitutional: Reports: Chills, Malaise HEENT: Reports: No Symptoms Respiratory: Reports: No Symptoms Cardiovascular: Reports: No Symptoms Endocrine: Reports: No Symptoms GI/Abdominal: Reports: Abdominal Pain (Right lower quadrant since 7 AM yesterday (23 hours ago) has not changed during that time.), Nausea : Reports: No Symptoms Musculoskeletal: Reports: No Symptoms Skin: Reports: No Symptoms Neurological: Reports: No Symptoms Psychiatric: Reports: Anxiety, Hallucinations (She states that she sees her sister sitting in a chair across from her and a cat.), Other (Is questionable whether she continues to use alcohol.) Hematologic/Lymphatic: Reports: No Symptoms Immunologic: Reports: No Symptoms ED EXAM, GENERAL - Physical Exam Exam: See Below Exam Limited By: No Limitations General Appearance: Alert, No Apparent Distress Eye Exam: Bilateral Eye: PERRL Head: Atraumatic, Other (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 No acute abnormalities.) Neck: Normal Inspection, Supple Respiratory/Chest: No Respiratory Distress, Lungs Clear, Normal Breath Sounds Cardiovascular: Normal Peripheral Pulses, Regular Rate, Rhythm, No Murmur Peripheral Pulses: 2+: Radial (L), Radial (R), Posterior Tibial (L), Posterior T ibial (R) GI/Abdominal: Normal Bowel Sounds, Soft, Tender (Minimal tenderness to palpation). No: Guarding, Rigid, Rebound Extremities: Normal Inspection Neurological: Alert, Oriented, Normal Cognition, No Motor/Sensory Deficits, Other (No asterixis or tremor.) Psychiatric: Normal Affect, Normal Mood Skin Exam: Warm, Dry, Intact, Normal Color. No: Jaundice Lymphatic: No Adenopathy Course - Vital Signs Last Recorded V/S: Last Vital Signs Temp 36.7 C 11/13/20 06:02 Pulse 66 11/13/20 06:02 Resp 16 11/13/20 06:02 BP 110/54 L 11/13/20 06:02 Pulse Ox 96 11/13/20 06:02 - Orders/Labs/Meds Orders: Active Orders 24 hr Category Date Time Status Abdomen 2V AP Flat Upright [CR] Stat Exams 11/13/20 06:07 Taken Labs: Laboratory Tests 11/13/20 11/13/20 11/13/20 Range/Units 06:17 06:17 06:17 WBC 6.5 (4.5-11.0) K/uL RBC 4.03 (3.30-5.50) M/uL Hgb 12.7 (12.0-15.0) g/dL Hct 38.0 (36.0-48.0) % MCV 94 (80-98) fL MCH 32 H (27-31) pg MCHC 33 (32-36) % Plt Count 104 L (150-400) K/uL Neut % (Auto) 44 (36-66) % Lymph % (Auto) 43 (24-44) % Alfalfa % (Auto) 11 H (2-6) % Eos % (Auto) 2 (2-4) % Baso % (Auto) 0 (0-1) % Sodium 143 (140-148) mmol/L Potassium 3.5 L (3.6-5.2) mmol/L Chloride 109 H (100-108) mmol/L Carbon Dioxide 22 (21-32) mmol/L Anion Gap 15.5 H (5.0-14.0) mmol/L BUN 12 D (7-18) mg/dL Creatinine 1.0 (0.6-1.0) mg/dL Est Cr Clr Drug Dosing 55.01 mL/min Estimated GFR (MDRD) 59 L (>60) Glucose 96 (74-106) mg/dL Calcium 9.3 (8.5-10.1) mg/dL Total Bilirubin 1.0 D (0.2-1.0) mg/dL AST 23 (15-37) U/L ALT 20 (12-78) U/L Alkaline Phosphatase 129 H (46-116) U/L Ammonia 35 H (11-32) mmol/L Total Protein 6.5 (6.4-8.2) g/dL Albumin 3.3 L (3.4-5.0) g/dL Globulin 3.2 (2.3-3.5) g/dL Albumin/Globulin Ratio 1.0 L (1.2-2.2) Lipase 39 L (73-393) U/L Ethyl Alcohol mg/dL 11/13/20 Range/Units 06:17 WBC (4.5-11.0) K/uL RBC (3.30-5.50) M/uL Hgb (12.0-15.0) g/dL Hct (36.0-48.0) % MCV (80-98) fL MCH (27-31) pg MCHC (32-36) % Plt Count (150-400) K/uL Neut % (Auto) (36-66) % Lymph % (Auto) (24-44) % Alfalfa % (Auto) (2-6) % Eos % (Auto) (2-4) % Baso % (Auto) (0-1) % Sodium (140-148) mmol/L Potassium (3.6-5.2) mmol/L Chloride (100-108) mmol/L Carbon Dioxide (21-32) mmol/L Anion Gap (5.0-14.0) mmol/L BUN (7-18) mg/dL Creatinine (0.6-1.0) mg/dL Est Cr Clr Drug Dosing mL/min Estimated GFR (MDRD) (>60) Glucose (74-106) mg/dL Calcium (8.5-10.1) mg/dL Total Bilirubin (0.2-1.0) mg/dL AST (15-37) U/L ALT (12-78) U/L Alkaline Phosphatase (46-116) U/L Ammonia (11-32) mmol/L Total Protein (6.4-8.2) g/dL Albumin (3.4-5.0) g/dL Globulin (2.3-3.5) g/dL Albumin/Globulin Ratio (1.2-2.2) Lipase (73-393) U/L Ethyl Alcohol < 3 mg/dL - Radiology Interpretation Free Text/Narrative:: I reviewed the two-view abdomen x-ray demonstrating sternotomy wires. There is normal distribution of stool and flatus throughout the abdomen. There is no free air in the abdomen. Status post tips procedure with stent, status post cholecystectomy and what appears to be gastric banding with clips around the stomach. There are no apparent air-fluid levels, nor is there any evidence for obstruction or obstipation. - Re-Assessments/Exams Free Text/Narrative Re-Assessment/Exam: 11/13/20 06:43 reviewed her labs and her ammonia level is 35 which is the lowest it has been in over a year. In addition her alcohol level is less than 3. Lipase is not elevated. Emanates the likelihood of pancreatitis. Remainder of her labs are not very impressive. With the x-ray not showing any significant abnormalities to suggest constipation or obstruction and her labs not showing any significant abnormalities warranting admission, I will instruct her to continue taking her lactulose and to follow-up with Dr. Rodriguez on Sunday. Hallucinations are likely due to multitude of things including her previous head trauma, neuro degenerative changes, and hepatic encephalopathy. Again there is nothing at this time that would indicate that she needs to be admitted. Departure - Departure Time of Disposition: 06:45 Disposition: Home, Self-Care 01 Condition: Fair Clinical Impression: Right lower quadrant abdominal pain, Hx of cirrhosis - Discharge Information *PRESCRIPTION DRUG MONITORING PROGRAM REVIEWED*: Not Applicable *COPY OF PRESCRIPTION DRUG MONITORING REPORT IN PATIENT NOMAN: Not Applicable Referrals: PCP,None [Primary Care Provider] - Forms: ED Department Discharge Care Plan Goals: Continue to take your medications as prescribed including the lactulose. Try to avoid any further alcohol intake. Follow-up with Dr. Rodriguez on Sunday. Ammonia level is 35 today which is the best that is been since we recorded it. Your enclosing a copy of your labs for your review. Sepsis Event Note (ED) - Focused Exam Vital Signs: Vital Signs Temp Pulse Resp BP Pulse Ox 11/13/20 06:02 36.7 C 66 16 110/54 L 96 - Problem List & Annotations (1) Right lower quadrant abdominal pain SNOMED Code(s): 002619978 Code(s): R10.31 - RIGHT LOWER QUADRANT PAIN Status: Acute Priority: Medium Current Visit: Yes (2) Hx of cirrhosis SNOMED Code(s): 672739473 Code(s): Z87.19 - PERSONAL HISTORY OF OTHER DISEASES OF THE DIGESTIVE SYSTEM Status: Chronic Priority: Medium Current Visit: Yes - Problem List Review Problem List Initiated/Reviewed/Updated: Yes - My Orders Last 24 Hours: My Active Orders 11/13/20 06:07 Abdomen 2V AP Flat Upright [CR] Stat - Assessment/Plan Last 24 Hours: My Active Orders 11/13/20 06:07 Abdomen 2V AP Flat Upright [CR] Stat
--- NOTE | 2020-11-15 09:15 | CR ---
Abdomen 2V AP Flat Upright CLINICAL HISTORY: Right lower quadrant pain FINDINGS: No free air is identified. Small intestinal configuration is nonacute. There is gas and feces throughout the colon. There has been previous TIPS procedure. There is also surgical clips in the right upper quadrant and epigastric region. There has been previous sternotomy Impression: Nonacute intestinal gas pattern
== END 2020-11-13 06:57 | disposition home or self-care (01) ==
LOC: JP.ED 05:58
DX: R10.31 Right lower quadrant pain (principal); I25.10 Atherosclerotic heart disease of native coronary artery without angina pectoris; I25.2 Old myocardial infarction; J45.909 Unspecified asthma, uncomplicated; K21.9 Gastro-esophageal reflux disease without esophagitis; D50.9 Iron deficiency anemia, unspecified; Z87.19 Personal history of other diseases of the digestive system; Z88.8 Allergy status to other drugs, medicaments and biological substances; Z91.018 Allergy to other foods; Z91.013 Allergy to seafood; Z91.048 Other nonmedicinal substance allergy status; Z79.899 Other long term (current) drug therapy
CPT/HCPCS: 36415; 74019; 74019-26; 80053; 80307; 82140; 83690; 85025; 99282; 99284

== ENCOUNTER 2020-11-23 14:18 | Observation (INO) | payer MEDICAID ==
[2020-11-23] MEDS ORDERED: Sodium Chloride 0.9% 10 ML Syringe FLUSH PRN (15:52)
--- NOTE | 2020-11-23 16:18 | PCM.HP.2 ---
H&P History of Present Illness - General Date of Service: 11/23/20 Admit Problem/Dx: Admission Diagnosis/Problem Admission Diagnosis/Problem Weakness Source of Information: Patient History Limitations: Reports: No Limitations - History of Present Illness Initial Comments - Free Text/Narative: 45-year-old female with a known past medical history of cirrhosis and hepatic encephalopathy on scheduled lactulose. She has a history of chronic pain for which he takes oxycodone as neededtypically 2-3 times per day. She has a history of traumatic brain injury with large subdural hematoma and seizure disorder. The patient is on scheduled Keppra, Topamax, and Neurontin. The patient is on Lunesta in the evenings for sleep and takes twice daily Prilosec along with nightly Carafate for GERD. She is on scheduled with spironolactone and Lasix for her history of cirrhosis and ascites. She is on a chronic potassium and magnesium supplement as well. The patient was directly admitted from clinic earlier today at her seeing Dr. Zelda Rodriguez. The patient reportedly had an elevated ammonia when seen in the ER this past Sunday. Report that this ammonia level was 113 though on my review the patient's ammonia was only 35 which is actually one of her lower numbers. Spite this, the patient reports increasing weakness at home. She went and obtained a bedside commode but states that she has been too weak to even manage that. She reports stools have not significantly changed. She continues to report 3 loose stools per day and reports taking her lactulose as prescribed. She denies any recent fevers. She has chronic abdominal pain which may be slightly worse. She reports her chronic nausea is near baseline. She does report some increased burning with urination for which she took Pyridium that had improved her symptoms. She otherwise reports taking all of her medications as prescribed. Due to the patient's weakness and perceived elevated ammonia level, admission was requested. Onset of Symptoms: Reports: Gradual Symptom Onset Date: 11/20/20 Duration of Symptoms: Reports: Day(s): - Related Data Allergies/Adverse Reactions: Allergies Allergy/AdvReac Type Severity Reaction Status Date / Time Fish Containing Products Allergy Severe Airway Verified 11/13/20 06:00 Tightness ziprasidone [From Geodon] Allergy Severe Airway Verified 11/13/20 06:00 Tightness tree nut Allergy Hives Verified 11/13/20 06:00 lamotrigine [From Lamictal] AdvReac Leg Cramps Verified 11/13/20 06:00 msg Allergy Hives Uncoded 11/13/20 06:00 Home Medications: Home Meds Cyanocobalamin (Vitamin B-12) [B-12] 250 mcg PO DAILY 07/29/17 [History] Gabapentin [Neurontin] 200 mg PO BID 07/29/17 [History] Lactulose 30 ml PO TID 07/29/17 [History] levETIRAcetam [Keppra] 500 mg PO BID 07/29/17 [History] Omeprazole 40 mg PO BID 10/19/17 [History] Cholecalciferol (Vitamin D3) [Vitamin D3] 1 tab PO DAILY 09/16/19 [History] Folic Acid 1 mg PO DAILY 09/16/19 [History] Albuterol Sulfate [Proventil Hfa] 6.7 gm IH Q4H 09/29/19 [History] Albuterol [Proventil Neb Soln] 2.5 mg INH Q4H PRN 09/29/19 [History] Ferrous Gluconate 324 mg PO DAILY 09/29/19 [History] Furosemide 40 mg PO DAILY 09/29/19 [History] Nitroglycerin [Nitrostat] 0.4 mg SL ASDIRECTED PRN 09/29/19 [History] Rifaximin [Xifaxan] 550 mg PO BID 09/29/19 [History] Spironolactone [Aldactone] 100 mg PO DAILY 09/29/19 [History] Thiamine [Vitamin B-1] 1 tab PO DAILY 09/29/19 [History] oxyCODONE 10 mg PO Q4H PRN 09/29/19 [History] Meclizine [Antivert] 12.5 mg PO TID 11/28/19 [History] Topiramate 100 mg PO BID 07/22/20 [History] Calcium Carbonate [Tums] 500 mg PO 11/23/20 [History] Eszopiclone [Lunesta] 1 mg PO BEDTIME 11/23/20 [History] Magnesium Oxide 400 mg PO DAILY 11/23/20 [History] Potassium Chloride 20 meq PO DAILY 11/23/20 [History] ondansetron HCL [Zofran] 4 mg PO Q8HR PRN 11/23/20 [History] Past Medical History HEENT History: Reports: Hard of Hearing, Impaired Vision Cardiovascular History: Reports: CAD, NH, Other (See Below) Other Cardiovascular History: portal hypertension. NH was 2002 Respiratory History: Reports: Asthma Gastrointestinal History: Reports: Cirrhosis, GERD, Other (See Below) Other Gastrointestinal History: ascites, liver disease, cholecystitis, hepatic encephalopathy, stent placed in liver, voices that she is in last stages of liver failure. 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: , Spontaneous , Other (See Below) Other OB/BYN History: Irregular [place] Musculoskeletal History: Reports: Back Pain, Chronic, Fracture, Other (See Below) Other Musculoskeletal History: colar bone, Neurological History: Reports: Brain Injury, CVA, Head Trauma, Seizure, Vertigo, Other (See Below) Other Neuro History: TBI ICH Skull defect Psychiatric History: Reports: Addiction, Anxiety, Depression, Psych Hospitalization(s), Suicide Attempt Hematologic History: Reports: Blood Transfusion(s), Iron Deficiency, Other (See Below) Other Hematologic History: Hypokelemia, hypomagnesemia, hyponatremia Oncologic (Cancer) History: Reports: Cervix - Infectious Disease History Infectious Disease History: Reports: Chicken Pox - Past Surgical History Head Surgeries/Procedures: Reports: None HEENT Surgical History: Reports: Adenoidectomy, Tonsillectomy Cardiovascular Surgical History: Reports: Coronary Artery Bypass Other Cardiovascular Surgeries/Procedures: cabg x 1 Respiratory Surgical History: Reports: None GI Surgical History: Reports: Appendectomy, Cholecystectomy, EGD Female Surgical History: Reports: Cystectomy, Other (See Below) Other Female Surgeries/Procedures: removal of abscess from left breast Neurological Surgical History: Reports: None Musculoskeletal Surgical History: Reports: None, Carpal Tunnel Oncologic Surgical History: Reports: None Dermatological Surgical History: Reports: None Social & Family History - Family History Family Medical History: No Pertinent Family History - Tobacco Use Tobacco Use Status *Q: Current Every Day Tobacco User Years of Tobacco use: 39 Packs/Tins Daily: 0.2 Used Tobacco, but Quit: No Second Hand Smoke Exposure: No - Caffeine Use Caffeine Use: Reports: Coffee Caffeine Use Comment: one cup of coffee and one cup of tea - Recreational Drug Use Recreational Drug Use: No - Living Situation & Occupation Living situation: Reports: Single Occupation: Disabled (lives in Apartment, Sister and Uncle live in same building.) H&P Review of Systems - Review of Systems: Review Of Systems: See Below General: Reports: Weakness, Weight Gain. Denies: Fever, Chills HEENT: Reports: No Symptoms Pulmonary: Reports: No Symptoms Cardiovascular: Reports: No Symptoms Gastrointestinal: Reports: Abdominal Pain, Nausea. Denies: Black Stool Genitourinary: Reports: Dysuria, Frequency, Burning Musculoskeletal: Reports: No Symptoms Skin: Reports: No Symptoms Psychiatric: Reports: No Symptoms Neurological: Denies: Seizure Hematologic/Lymphatic: Reports: No Symptoms Immunologic: Reports: No Symptoms Exam - Exam Exam: See Below - Vital Signs Vital Signs: Last Vital Signs Temp 97.1 F 11/23/20 14:51 Pulse 59 L 11/23/20 14:51 Resp 16 11/23/20 14:51 BP 97/50 L 11/23/20 14:51 Pulse Ox 98 11/23/20 14:51 Weight: 151 lb 12.8 oz - Exam Quality Assessment: No: Supplemental Oxygen General: Alert, Oriented, Cooperative HEENT: PERRLA, Conjunctiva Clear Neck: Supple, Trachea Midline Lungs: Clear to Auscultation Cardiovascular: Regular Rate GI/Abdominal Exam: Soft, Tender Extremities: Normal Range of Motion Skin: Warm, Dry Neuro Extensive - Mental Status: Alert, Oriented x3 Psychiatric: Normal Affect, Normal Mood Sepsis Event Note - Focused Exam Vital Signs: Vital Signs Temp Pulse Resp BP Pulse Ox 11/23/20 14:51 97.1 F 59 L 16 97/50 L 98 - Problem List (1) Weakness generalized SNOMED Code(s): 03851213 ICD Code: R53.1 - WEAKNESS Status: Acute Current Visit: Yes Onset Date: ~11/20/20 Problem Details: Patient notes progressive weakness particularly over the weekend. She now states that she has difficulty even getting up and transferring to the commode. Requested physical and Occupational Therapy assessments to make appropriate disposition. (2) Liver cirrhosis SNOMED Code(s): 80823440 ICD Code: K74.60 - UNSPECIFIED CIRRHOSIS OF LIVER Status: Acute Current Visit: Yes Problem Details: Patient with known history of hepatic cirrhosis and encephalopathy in the past. She is alert and oriented as well as appropriate now. Report from clinic that the patient had elevated ammonia level to 113 though on my lab review the patient had an ammonia of 35 on her prior visit to the emergency department. Requested repeat ammonia level. We will continue lactulose and adjust to maintain 2-3 bowel movements daily. Continue usual spironolactone and Lasix for ascites related to hepatic cirrhosis. Qualifiers: Hepatic cirrhosis type: alcoholic cirrhosis Ascites presence: with ascites Qualified Code(s): K70.31 - Alcoholic cirrhosis of liver with ascites (3) History of seizure SNOMED Code(s): 931141153 ICD Code: Z87.898 - PERSONAL HISTORY OF OTHER SPECIFIED CONDITIONS Status: Acute Current Visit: Yes Problem Details: No recent seizure activity. We will continue patient's usual Keppra, Topamax, and Neurontin per [employer] regimen. (4) Insomnia SNOMED Code(s): 639781599 ICD Code: G47.00 - INSOMNIA, UNSPECIFIED Status: Acute Current Visit: Yes Problem Details: Reported history of insomnia. Continue Lunesta in the evenings as needed for sleep. Qualifiers: Insomnia type: unspecified Qualified Code(s): G47.00 - Insomnia, unspecified (5) GERD (gastroesophageal reflux disease) SNOMED Code(s): 134440069 ICD Code: K21.9 - GASTRO-ESOPHAGEAL REFLUX DISEASE WITHOUT ESOPHAGITIS Status: Acute Current Visit: Yes Problem Details: Continue [employer] Prilosec and scheduled Carafate (6) Chronic pain SNOMED Code(s): 40302405 ICD Code: G89.29 - OTHER CHRONIC PAIN Status: Chronic Priority: High Current Visit: No Problem Details: Patient reports taking oxycodone 2-3 times daily. Will continue oxycodone every 4 hours as needed here in the hospital. Qualifiers: Chronic pain type: chronic pain syndrome Qualified Code(s): G89.4 - Chronic pain syndrome Problem List Initiated/Reviewed/Updated: Yes Orders Last 24hrs: Active Orders 24 hr Category Date Time Status Patient Status [ADT] Routine ADT 11/23/20 15:52 Ordered Height and Weight [RC] DAILY Care 11/23/20 15:52 Ordered Intake and Output [RC] QSHIFT Care 11/23/20 15:53 Ordered Oxygen Therapy [RC] PRN Care 11/23/20 15:52 Ordered Peripheral IV Care [RC] . DIRECTED Care 11/23/20 15:55 Ordered Up to Chair [RC] QID Care 11/23/20 15:52 Ordered VTE/DVT Education [RC] Per Unit Routine Care 11/23/20 15:52 Ordered Vital Signs [RC] Q4H Care 11/23/20 15:52 Ordered Consult to Occupational Therapy [OT Evaluation and Cons 11/23/20 16:10 Ordered Treatment] [CONS] Routine Consult to Physical Therapy [PT Evaluation and Cons 11/23/20 16:10 Ordered Treatment] [CONS] Routine Regular Diet [DIET] Diet 11/23/20 Dinner Ordered AMMONIA VENOUS [CHEM] Routine Lab 11/23/20 16:08 Ordered BASIC METABOLIC PANEL,BMP [CHEM] Routine Lab 11/23/20 16:08 Ordered HEPATIC FUNCTION PANEL,HFP [CHEM] Routine Lab 11/23/20 16:08 Ordered MAGNESIUM [CHEM] Routine Lab 11/23/20 16:11 Ordered PHOSPHORUS [CHEM] Routine Lab 11/23/20 16:11 Ordered UA W/MICROSCOPIC [URIN] Routine Lab 11/23/20 16:08 Ordered Eszopiclone [Lunesta] Med 11/23/20 15:57 Ordered 1 mg PO BEDTIME PRN Furosemide [Lasix] Med 11/24/20 09:00 Ordered 40 mg PO DAILY Gabapentin [Neurontin] Med 11/23/20 21:00 Ordered 200 mg PO BID Lactulose [Chronulac] Med 11/23/20 17:00 Ordered 30 gm PO TID Magnesium Oxide Med 11/24/20 09:00 Ordered 400 mg PO DAILY Meclizine [Antivert] Med 11/23/20 21:00 Ordered 12.5 mg PO TID Ondansetron [Zofran ODT] Med 11/23/20 15:52 Ordered 4 mg PO Q6H PRN Pantoprazole [ProTONIX] Med 11/23/20 16:30 Ordered 40 mg PO BIDAC Potassium Chloride [Klor-Con M20] Med 11/24/20 09:00 Ordered 20 meq PO DAILY Sodium Chloride 0.9% [Saline Flush] Med 11/23/20 15:52 Ordered 10 ml FLUSH ASDIRECTED PRN Spironolactone [Aldactone] Med 11/24/20 09:00 Ordered 100 mg PO DAILY Sucralfate [Carafate] Med 11/23/20 17:00 Ordered 1 gm PO QIDACANDBED Thiamine [Vitamin B-1] Med 11/23/20 21:00 Ordered 100 mg PO BEDTIME Topiramate [Topamax] Med 11/23/20 21:00 Ordered 100 mg PO BID levETIRAcetam [Keppra] Med 11/23/20 21:00 Ordered 500 mg PO BID oxyCODONE Med 11/23/20 15:57 Ordered 10 mg PO Q4H PRN Peripheral IV Insertion Adult [OM.PC] Routine Oth 11/23/20 15:52 Ordered Saline Lock Insert [OM.PC] Routine Oth 11/23/20 15:52 Ordered Resuscitation Status Routine Resus Stat 11/23/20 15:52 Ordered Medication Orders Eszopiclone (Eszopiclone 1 Mg Tab) 1 mg PO BEDTIME PRN PRN Reason: Insomnia Furosemide (Furosemide 40 Mg Tab) 40 mg PO DAILY JOSE Gabapentin (Gabapentin 100 Mg Cap) 200 mg PO BID JOSE Lactulose (Lactulose Soln 10 Gm/15 Ml 15 Ml Ud Cup) 30 gm PO TID JOSE Levetiracetam (Levetiracetam 250 Mg Tab) 500 mg PO BID JOSE Magnesium Oxide (Magnesium Oxide 400 Mg Tab) 400 mg PO DAILY JOSE Meclizine HCl (Meclizine 25 Mg Tab) 12.5 mg PO TID JOSE Ondansetron HCl (Ondansetron 4 Mg Tab.Dis) 4 mg PO Q6H PRN PRN Reason: Nausea able to take PO Oxycodone HCl (Oxycodone 5 Mg Tab) 10 mg PO Q4H PRN PRN Reason: Pain Pantoprazole Sodium (Pantoprazole 40 Mg Tab.Cr) 40 mg PO BIDAC JOSE Potassium Chloride (Potassium Chloride 20 Meq Tab.Er) 20 meq PO DAILY JOSE Sodium Chloride (Sodium Chloride 0.9% 10 Ml Syringe) 10 ml FLUSH ASDIRECTED PRN PRN Reason: Keep Vein Open Spironolactone (Spironolactone 25 Mg Tab) 100 mg PO DAILY JOSE Sucralfate (Sucralfate 1 Gm Tab) 1 gm PO QIDACANDBED JOSE Thiamine HCl (Thiamine 100 Mg Tab) 100 mg PO BEDTIME JOSE Topiramate (Topiramate 100 Mg Tab) 100 mg PO BID JOSE
[2020-11-23] MEDS: Pantoprazole 40 MG Tab.CR PO SCH (16:34)
[2020-11-23] MEDS: Ondansetron 4 MG Tab.DIS PO PRN ×2 (16:34→22:38)
[2020-11-23] MEDS: oxyCODONE 5 MG Tab PO PRN ×2 (16:34→21:52)
[2020-11-23] MEDS ORDERED: Lactulose Soln 10 GM/15 ML 15 ML UD Cup PO SCH (17:00)
[2020-11-23] MEDS ORDERED: Sucralfate 1 GM Tab PO SCH (17:00)
[2020-11-23] MEDS: Lactulose Soln 10 GM/15 ML 15 ML UD Cup PO SCH ×2 (17:53→21:51)
[2020-11-23] MEDS ORDERED: Nicotine Polacrilex 2 MG Gum CHEW PRN (19:17)
[2020-11-23] MEDS ORDERED: Thiamine 100 MG Tab PO SCH (21:00)
[2020-11-23] MEDS: Gabapentin 100 MG Cap PO SCH (21:50)
[2020-11-23] MEDS: Topiramate 100 MG Tab PO SCH (21:50)
[2020-11-23] MEDS: levETIRAcetam 250 MG Tab PO SCH (21:51)
[2020-11-23] MEDS: Meclizine 25 MG Tab PO SCH (21:51)
--- NOTE | 2020-11-23 22:59 | PCM.SN.2 ---
- Free Text/Narrative Note: O: urine sample with many bacteria A: uti P: Rocephin 1 gram IV urine culture pending
[2020-11-23] MEDS ORDERED: cefTRIAXone 1 GM in Sodium Chloride 0.9% 50 ML IV SCH (23:00)
[2020-11-24] MEDS: oxyCODONE 5 MG Tab PO PRN ×2 (02:12→08:04)
[2020-11-24] MEDS: Pantoprazole 40 MG Tab.CR PO SCH (07:52)
[2020-11-24] MEDS: Gabapentin 100 MG Cap PO SCH (08:08)
[2020-11-24] MEDS: Meclizine 25 MG Tab PO SCH ×2 (08:09→14:06)
[2020-11-24] MEDS: Lactulose Soln 10 GM/15 ML 15 ML UD Cup PO SCH ×2 (08:11→14:06)
[2020-11-24] MEDS: levETIRAcetam 250 MG Tab PO SCH (08:13)
[2020-11-24] MEDS: Topiramate 100 MG Tab PO SCH (08:14)
[2020-11-24] MEDS: Ondansetron 4 MG Tab.DIS PO PRN (08:28)
[2020-11-24] MEDS ORDERED: Magnesium Oxide 400 MG Tab PO SCH (09:00)
[2020-11-24] MEDS ORDERED: Furosemide 40 MG Tab PO SCH (09:00)
[2020-11-24] MEDS ORDERED: Potassium Chloride 20 MEQ Tab.ER PO SCH (09:00)
[2020-11-24] MEDS ORDERED: Spironolactone 25 MG Tab PO SCH (09:00)
--- NOTE | 2020-11-24 12:27 | PCM.DCSUM1 ---
Discharge Summary - Hospital Course Brief History: A 45-year-old female admitted for observation on 11/23 with weakness. - Discharge Data Discharge Date: 11/24/20 Discharge Disposition: Home, Self-Care 01 Condition: Good - Referral to Home Health Primary Care Physician: Zelda Rodriguez DO - Discharge Diagnosis/Problem(s) (1) Weakness generalized SNOMED Code(s): 44372270 ICD Code: R53.1 - WEAKNESS Status: Acute Current Visit: Yes Onset Date: ~11/20/20 Problem Details: Weakness improved. Patient up ambulating on her own and does not require further PT/OT assessment. (2) Liver cirrhosis SNOMED Code(s): 61242137 ICD Code: K74.60 - UNSPECIFIED CIRRHOSIS OF LIVER Status: Acute Current Visit: Yes Problem Details: Repeat ammonia level obtained and returned at 26. Patient's previous ammonia level was only 35. Sounds to be misinterpretation from patient's primary care provider reported level in the 110s. Qualifiers: Hepatic cirrhosis type: alcoholic cirrhosis Ascites presence: with ascites Qualified Code(s): K70.31 - Alcoholic cirrhosis of liver with ascites (3) History of seizure SNOMED Code(s): 507724182 ICD Code: Z87.898 - PERSONAL HISTORY OF OTHER SPECIFIED CONDITIONS Status: Acute Current Visit: Yes Problem Details: No recent seizure activity. We will continue patient's usual Keppra, Topamax, and Neurontin per REFUSE COLLECTOR regimen. (4) Insomnia SNOMED Code(s): 273883751 ICD Code: G47.00 - INSOMNIA, UNSPECIFIED Status: Acute Current Visit: Yes Problem Details: Reported history of insomnia. Continue Lunesta in the evenings as needed for sleep. Qualifiers: Insomnia type: unspecified Qualified Code(s): G47.00 - Insomnia, unspecified (5) GERD (gastroesophageal reflux disease) SNOMED Code(s): 663103436 ICD Code: K21.9 - GASTRO-ESOPHAGEAL REFLUX DISEASE WITHOUT ESOPHAGITIS Status: Acute Current Visit: Yes Problem Details: Continue REFUSE COLLECTOR Prilosec and scheduled Carafate (6) Chronic pain SNOMED Code(s): 03080442 ICD Code: G89.29 - OTHER CHRONIC PAIN Status: Chronic Priority: High Current Visit: No Problem Details: Continue oxycodone as needed for pain Qualifiers: Chronic pain type: chronic pain syndrome Qualified Code(s): G89.4 - Chronic pain syndrome - Patient Summary/Data Consults: Consultations 11/23/20 16:10 Consult to Occupational Therapy [OT Evaluation and Treatment] [CONS] Routine Please Evaluate and Treat. OT Reason for Consult: WEAKNESS This query below is only for informational purposes and is not editable. Admission Diagnosis/Problem: Weakness Consult to Physical Therapy [PT Evaluation and Treatment] [CONS] Routine Please Evaluate and Treat. PT Reason for Consult: WEAKNESS This query below is only for informational purposes and is not editable. Admission Diagnosis/Problem: Weakness - Patient Instructions Diet: Low Sodium - Discharge Plan *PRESCRIPTION DRUG MONITORING PROGRAM REVIEWED*: Not Applicable *COPY OF PRESCRIPTION DRUG MONITORING REPORT IN PATIENT NOMAN: Not Applicable Home Medications: Home Meds Cyanocobalamin (Vitamin B-12) [B-12] 250 mcg PO DAILY 07/29/17 [History] Gabapentin [Neurontin] 200 mg PO BID 07/29/17 [History] Lactulose 30 ml PO TID 07/29/17 [History] levETIRAcetam [Keppra] 500 mg PO BID 07/29/17 [History] Omeprazole 40 mg PO BID 10/19/17 [History] Cholecalciferol (Vitamin D3) [Vitamin D3] 1 tab PO DAILY 09/16/19 [History] Folic Acid 1 mg PO DAILY 09/16/19 [History] Albuterol Sulfate [Proventil Hfa] 6.7 gm IH Q4H 09/29/19 [History] Albuterol [Proventil Neb Soln] 2.5 mg INH Q4H PRN 09/29/19 [History] Ferrous Gluconate 324 mg PO DAILY 09/29/19 [History] Furosemide 40 mg PO DAILY 09/29/19 [History] Nitroglycerin [Nitrostat] 0.4 mg SL ASDIRECTED PRN 09/29/19 [History] Rifaximin [Xifaxan] 550 mg PO BID 09/29/19 [History] Spironolactone [Aldactone] 100 mg PO DAILY 09/29/19 [History] Thiamine [Vitamin B-1] 1 tab PO DAILY 09/29/19 [History] oxyCODONE 10 mg PO Q4H PRN 09/29/19 [History] Meclizine [Antivert] 12.5 mg PO TID 11/28/19 [History] Topiramate 100 mg PO BID 07/22/20 [History] Calcium Carbonate [Tums] 500 mg PO 11/23/20 [History] Eszopiclone [Lunesta] 1 mg PO BEDTIME 11/23/20 [History] Magnesium Oxide 400 mg PO DAILY 11/23/20 [History] Potassium Chloride 20 meq PO DAILY 11/23/20 [History] ondansetron HCL [Zofran] 4 mg PO Q8HR PRN 11/23/20 [History] Referrals: Zelda Rodriguez DO [Primary Care Provider] - 12/02/20 1:40 pm (Arrive 15 minutes early to register for your appointment.) - Discharge Summary/Plan Comment DC Time >30 min.: No (26 minutes) Discharge Summary/Plan Comment: 45-year-old female with a known medical history of hepatic cirrhosis was admitted for observation on 11/23 due to generalized weakness and report of elevated ammonia level in the clinic. The patient had an ammonia level in the 30s on last available review in [facility]. Repeat ammonia level upon admission was only 26. The patient reported improvement in her ambulation overnight and did not require PT/OT assessment. She was comfortable with and requested discharge home. She was discharged in stable condition with recommendations to follow-up with her primary care provider. - Patient Data Vitals - Most Recent: Last Vital Signs Temp 98.3 F 11/24/20 11:00 Pulse 52 L 11/24/20 11:00 Resp 18 11/24/20 11:00 BP 106/59 L 11/24/20 11:00 Pulse Ox 96 11/24/20 11:00 Weight - Most Recent: 154 lb I&O - Last 24 hours: Intake & Output 11/23/20 11/24/20 11/24/20 22:59 06:59 14:59 Intake Total 1190 50 680 Output Total 550 200 Balance 640 50 480 Lab Results - Last 24 hrs: Laboratory Results - last 24 hr 11/23/20 11/23/20 11/23/20 Range/Units 16:08 16:20 16:20 Sodium 142 (140-148) mmol/L Potassium 4.1 (3.6-5.2) mmol/L Chloride 107 (100-108) mmol/L Carbon Dioxide 23 (21-32) mmol/L Anion Gap 11.8 (5.0-14.0) mmol/L BUN 16 (7-18) mg/dL Creatinine 1.0 (0.6-1.0) mg/dL Est Cr Clr Drug Dosing 55.01 mL/min Estimated GFR (MDRD) 59 L (>60) Glucose 93 (74-106) mg/dL Calcium 9.2 (8.5-10.1) mg/dL Phosphorus (2.5-4.9) mg/dL Magnesium (1.8-2.4) mg/dL Total Bilirubin 0.3 D (0.2-1.0) mg/dL Direct Bilirubin 0.15 (0.0-0.2) mg/dL Indirect Bilirubin 0.15 AST 21 (15-37) U/L ALT 19 (12-78) U/L Alkaline Phosphatase 150 H (46-116) U/L Ammonia 26 (11-32) mmol/L Total Protein 6.3 L (6.4-8.2) g/dL Albumin 3.4 (3.4-5.0) g/dL Globulin 2.9 (2.3-3.5) g/dL Albumin/Globulin Ratio 1.2 (1.2-2.2) Urine Color Yellow (YELLOW) Urine Appearance Slightly cloudy A (CLEAR) Urine pH 7.5 (5.0-8.0) Ur Specific [place] 1.015 (1.008-1.030) Urine Protein Negative (NEGATIVE) mg/dL Urine Glucose (UA) Negative (NEGATIVE) mg/dL Urine Ketones Negative (NEGATIVE) mg/dL Urine Occult Blood Negative (NEGATIVE) Urine Nitrite Negative (NEGATIVE) Urine Bilirubin Negative (NEGATIVE) Urine Urobilinogen 0.2 (0.2-1.0) EU/dL Ur Leukocyte Esterase Negative (NEGATIVE) Urine RBC 0-5 (0-5) Urine WBC 0-5 (0-5) Ur Epithelial Cells Few Amorphous Sediment Moderate Urine Bacteria Many Urine Mucus Not seen 11/23/20 Range/Units 16:20 Sodium (140-148) mmol/L Potassium (3.6-5.2) mmol/L Chloride (100-108) mmol/L Carbon Dioxide (21-32) mmol/L Anion Gap (5.0-14.0) mmol/L BUN (7-18) mg/dL Creatinine (0.6-1.0) mg/dL Est Cr Clr Drug Dosing mL/min Estimated GFR (MDRD) (>60) Glucose (74-106) mg/dL Calcium (8.5-10.1) mg/dL Phosphorus 3.7 (2.5-4.9) mg/dL Magnesium 1.8 (1.8-2.4) mg/dL Total Bilirubin (0.2-1.0) mg/dL Direct Bilirubin (0.0-0.2) mg/dL Indirect Bilirubin AST (15-37) U/L ALT (12-78) U/L Alkaline Phosphatase (46-116) U/L Ammonia (11-32) mmol/L Total Protein (6.4-8.2) g/dL Albumin (3.4-5.0) g/dL Globulin (2.3-3.5) g/dL Albumin/Globulin Ratio (1.2-2.2) Urine Color (YELLOW) Urine Appearance (CLEAR) Urine pH (5.0-8.0) Ur Specific [place] (1.008-1.030) Urine Protein (NEGATIVE) mg/dL Urine Glucose (UA) (NEGATIVE) mg/dL Urine Ketones (NEGATIVE) mg/dL Urine Occult Blood (NEGATIVE) Urine Nitrite (NEGATIVE) Urine Bilirubin (NEGATIVE) Urine Urobilinogen (0.2-1.0) EU/dL Ur Leukocyte Esterase (NEGATIVE) Urine RBC (0-5) Urine WBC (0-5) Ur Epithelial Cells Amorphous Sediment Urine Bacteria Urine Mucus Med Orders - Current: Current Medications Eszopiclone (Eszopiclone 1 Mg Tab) 1 mg PO BEDTIME PRN PRN Reason: Insomnia Furosemide (Furosemide 40 Mg Tab) 40 mg PO DAILY [facility] Last Admin: 11/24/20 08:10 Dose: 40 mg Documented by: Gabapentin (Gabapentin 100 Mg Cap) 200 mg PO BID [facility] Last Admin: 11/24/20 08:08 Dose: 200 mg Documented by: Ceftriaxone Sodium 1 gm/ (Sodium Chloride) 50 mls @ 100 mls/hr IV Q24H [facility] Last Admin: 11/23/20 23:50 Dose: 100 mls/hr Documented by: Lactulose (Lactulose Soln 10 Gm/15 Ml 15 Ml Ud Cup) 20 gm PO TID [facility] Last Admin: 11/24/20 08:11 Dose: 20 gm Documented by: Levetiracetam (Levetiracetam 250 Mg Tab) 500 mg PO BID [facility] Last Admin: 11/24/20 08:13 Dose: 500 mg Documented by: Magnesium Oxide (Magnesium Oxide 400 Mg Tab) 400 mg PO DAILY [facility] Last Admin: 11/24/20 08:15 Dose: 400 mg Documented by: Meclizine HCl (Meclizine 25 Mg Tab) 12.5 mg PO TID [facility] Last Admin: 11/24/20 08:09 Dose: 12.5 mg Documented by: Nicotine Polacrilex (Nicotine Polacrilex 2 Mg Gum) 2 mg CHEW Q2H PRN PRN Reason: Withdrawal Symptoms Ondansetron HCl (Ondansetron 4 Mg Tab.Dis) 4 mg PO Q6H PRN PRN Reason: Nausea able to take PO Last Admin: 11/24/20 08:28 Dose: 4 mg Documented by: Oxycodone HCl (Oxycodone 5 Mg Tab) 10 mg PO Q4H PRN PRN Reason: Pain Last Admin: 11/24/20 08:04 Dose: 10 mg Documented by: Pantoprazole Sodium (Pantoprazole 40 Mg Tab.Cr) 40 mg PO BIDAC [facility] Last Admin: 11/24/20 07:52 Dose: 40 mg Documented by: Potassium Chloride (Potassium Chloride 20 Meq Tab.Er) 20 meq PO DAILY [facility] Last Admin: 11/24/20 08:07 Dose: 20 meq Documented by: Sodium Chloride (Sodium Chloride 0.9% 10 Ml Syringe) 10 ml FLUSH ASDIRECTED PRN PRN Reason: Keep Vein Open Spironolactone (Spironolactone 25 Mg Tab) 100 mg PO DAILY [facility] Last Admin: 11/24/20 08:10 Dose: 100 mg Documented by: Thiamine HCl (Thiamine 100 Mg Tab) 100 mg PO BEDTIME [facility] Last Admin: 11/23/20 21:50 Dose: 100 mg Documented by: Topiramate (Topiramate 100 Mg Tab) 100 mg PO BID [facility] Last Admin: 11/24/20 08:14 Dose: 100 mg Documented by: Discontinued Medications Lactulose (Lactulose Soln 10 Gm/15 Ml 15 Ml Ud Cup) 30 gm PO TID [facility] Sucralfate (Sucralfate 1 Gm Tab) 1 gm PO QIDACANDBED [facility] Last Admin: 11/23/20 16:32 Dose: Not Given Documented by:
== END 2020-11-24 14:35 | disposition home or self-care (01) ==
LOC: JP.MS 14:18 → INTOOBSV 14:18
PROVIDERS: ADMIT Internal Medicine; ATTEND Internal Medicine
DX: R53.1 Weakness (principal); K74.60 Unspecified cirrhosis of liver; K72.90 Hepatic failure, unspecified without coma; K21.9 Gastro-esophageal reflux disease without esophagitis; G89.29 Other chronic pain; I25.10 Atherosclerotic heart disease of native coronary artery without angina pectoris; I25.2 Old myocardial infarction; F17.210 Nicotine dependence, cigarettes, uncomplicated; G47.00 Insomnia, unspecified; Z88.8 Allergy status to other drugs, medicaments and biological substances; Z91.018 Allergy to other foods; Z79.899 Other long term (current) drug therapy; Z86.73 Personal history of transient ischemic attack (TIA), and cerebral infarction without residual deficits; Z98.890 Other specified postprocedural states
CPT/HCPCS: 36415; 80048; 80076; 81001; 82140; 83735; 84100; 87086; 96365; 97162-GP; 99217; 99219; A9270-GY; G0378; G0379; J0696

== ENCOUNTER 2020-12-06 21:53 | Emergency (ER) | payer MEDICAID ==
--- NOTE | 2020-12-06 23:05 | EDM.PDOC ---
ED HPI GENERAL MEDICAL PROBLEM - General Chief Complaint: General Stated Complaint: NOT FEELING WELL, WAS TOLD TO COME IN Time Seen by Provider: 12/06/20 22:38 Source of Information: Reports: Patient, Old Records, RN Notes Reviewed History Limitations: Reports: No Limitations - History of Present Illness INITIAL COMMENTS - FREE TEXT/NARRATIVE: 45-year-old female presents emergency department day sent in from clinic. She had ammonia level drawn today it was 102. She was contacted by the clinic recommended report to the emergency department for further evaluation. She states she has been feeling poorly she has been taking her lactulose she was recently admitted the hospital November 23 for elevated lactulose level consistent with hepatic encephalopathy and generalized weakness did improve with treatment overnight. She states she continues to feel weak she is having abdominal pain mainly in the right upper quadrant she has some mental confusion. Is very tearful during the interview - Related Data Allergies Allergy/AdvReac Type Severity Reaction Status Date / Time Fish Containing Products Allergy Severe Airway Verified 11/13/20 06:00 Tightness ziprasidone [From Geodon] Allergy Severe Airway Verified 11/13/20 06:00 Tightness cefazolin Allergy Cannot Verified 12/06/20 22:19 Remember shellfish derived Allergy Swelling Verified 12/06/20 22:19 tree nut Allergy Hives Verified 11/13/20 06:00 lamotrigine [From Lamictal] AdvReac Leg Cramps Verified 11/13/20 06:00 msg Allergy Hives Uncoded 11/13/20 06:00 Home Meds: Home Meds Cyanocobalamin (Vitamin B-12) [B-12] 250 mcg PO DAILY 07/29/17 [History] Gabapentin [Neurontin] 200 mg PO BID 07/29/17 [History] Lactulose 45 ml PO QID 07/29/17 [History] levETIRAcetam [Keppra] 500 mg PO BID 07/29/17 [History] Omeprazole 40 mg PO BID 10/19/17 [History] Cholecalciferol (Vitamin D3) [Vitamin D3] 1 tab PO DAILY 09/16/19 [History] Folic Acid 1 mg PO DAILY 09/16/19 [History] Albuterol Sulfate [Proventil Hfa] 6.7 gm IH Q4H 09/29/19 [History] Albuterol [Proventil Neb Soln] 2.5 mg INH Q4H PRN 09/29/19 [History] Ferrous Gluconate 324 mg PO DAILY 09/29/19 [History] Furosemide 40 mg PO DAILY 09/29/19 [History] Nitroglycerin [Nitrostat] 0.4 mg SL ASDIRECTED PRN 09/29/19 [History] Rifaximin [Xifaxan] 550 mg PO BID 09/29/19 [History] Spironolactone [Aldactone] 100 mg PO DAILY 09/29/19 [History] Thiamine [Vitamin B-1] 1 tab PO DAILY 09/29/19 [History] oxyCODONE 10 mg PO Q4H PRN 09/29/19 [History] Meclizine [Antivert] 12.5 mg PO TID 11/28/19 [History] Topiramate 100 mg PO BID 07/22/20 [History] Calcium Carbonate [Tums] 500 mg PO ASDIRECTED 11/23/20 [History] Eszopiclone [Lunesta] 1 mg PO BEDTIME 11/23/20 [History] Magnesium Oxide 400 mg PO DAILY 11/23/20 [History] Potassium Chloride 20 meq PO DAILY 11/23/20 [History] ondansetron HCL [Zofran] 4 mg PO Q8HR PRN 11/23/20 [History] Sucralfate [Carafate] 1 gm PO QID 12/06/20 [History] Vortioxetine Hydrobromide [Brintellix] 10 mg PO DAILY 12/06/20 [History] Past Medical History HEENT History: Reports: Hard of Hearing, Impaired Vision Cardiovascular History: Reports: CAD, NM, Other (See Below) Other Cardiovascular History: portal hypertension. NM was 2002 Respiratory History: Reports: Asthma Gastrointestinal History: Reports: Cirrhosis, GERD, Other (See Below) Other Gastrointestinal History: ascites, liver disease, cholecystitis, hepatic encephalopathy, stent placed in liver, voices that she is in last stages of liver failure. Genitourinary History: Reports: Renal Calculus, Other (See Below) Other Genitourinary History: urethral stent placed that extends to kidney TRUST VAULT CLERK History: Reports: , Spontaneous , Other (See Below) Other TRUST VAULT CLERK History: Irregular [place] Musculoskeletal History: Reports: Back Pain, Chronic, Fracture, Other (See Below) Other Musculoskeletal History: colar bone, Neurological History: Reports: Brain Injury, CVA, Head Trauma, Seizure, Vertigo, Other (See Below) Other Neuro History: TBI ICH Skull defect Psychiatric History: Reports: Addiction, Anxiety, Depression, Psych Hospitalization(s), Suicide Attempt Hematologic History: Reports: Blood Transfusion(s), Iron Deficiency, Other (See Below) Other Hematologic History: Hypokelemia, hypomagnesemia, hyponatremia Oncologic (Cancer) History: Reports: Cervix - Infectious Disease History Infectious Disease History: Reports: Chicken Pox - Past Surgical History Head Surgeries/Procedures: Reports: None HEENT Surgical History: Reports: Adenoidectomy, Tonsillectomy Cardiovascular Surgical History: Reports: Coronary Artery Bypass Other Cardiovascular Surgeries/Procedures: cabg x 1 Respiratory Surgical History: Reports: None GI Surgical History: Reports: Appendectomy, Cholecystectomy, EGD Female Surgical History: Reports: Cystectomy, Other (See Below) Other Female Surgeries/Procedures: removal of abscess from left breast Neurological Surgical History: Reports: None Musculoskeletal Surgical History: Reports: None, Carpal Tunnel Oncologic Surgical History: Reports: None Dermatological Surgical History: Reports: None Social & Family History - Family History Family Medical History: No Pertinent Family History - Tobacco Use Tobacco Use Status *Q: Current Every Day Tobacco User Years of Tobacco use: 39 Packs/Tins Daily: 0.1 - Caffeine Use Caffeine Use: Reports: Coffee Caffeine Use Comment: one cup of coffee and one cup of tea - Living Situation & Occupation Living situation: Reports: Single Occupation: Disabled (lives in Apartment, Sister and Uncle live in same building.) ED ROS GENERAL - Review of Systems Review Of Systems: See Below Constitutional: Reports: Weakness, Fatigue HEENT: Reports: No Symptoms Respiratory: Reports: No Symptoms Cardiovascular: Reports: No Symptoms GI/Abdominal: Reports: Abdominal Pain, Diarrhea. Denies: Nausea, Vomiting Neurological: Reports: Confusion ED EXAM, GENERAL - Physical Exam Exam: See Below Exam Limited By: No Limitations General Appearance: Alert, WD/WN, Mild Distress (Tearful) Respiratory/Chest: No Respiratory Distress, Lungs Clear, Normal Breath Sounds, No Accessory Muscle Use, Chest Non-Tender Cardiovascular: Regular Rate, Rhythm, No Murmur GI/Abdominal: Normal Bowel Sounds, Soft, Distended, Tender (Right upper quadrant) Course - Vital Signs Last Recorded V/S: Last Vital Signs Temp 98.1 F 03/22/21 22:33 Pulse 66 12/06/20 22:33 Resp 19 12/06/20 22:33 BP 112/66 12/06/20 22:33 Pulse Ox 97 12/06/20 22:33 - Orders/Labs/Meds Labs: Laboratory Tests 12/06/20 12/06/20 12/06/20 Range/Units 23:10 23:10 23:10 WBC 4.6 (4.5-11.0) K/uL RBC 4.09 (3.30-5.50) M/uL Hgb 13.2 (12.0-15.0) g/dL Hct 38.7 (36.0-48.0) % MCV 95 (80-98) fL MCH 32 H (27-31) pg MCHC 34 (32-36) % Plt Count 133 L (150-400) K/uL Neut % (Auto) 32 L (36-66) % Lymph % (Auto) 54 H (24-44) % [place] % (Auto) 10 H (2-6) % Eos % (Auto) 4 (2-4) % Baso % (Auto) 0 (0-1) % Sodium 146 (140-148) mmol/L Potassium 3.6 (3.6-5.2) mmol/L Chloride 110 H (100-108) mmol/L Carbon Dioxide 22 (21-32) mmol/L Anion Gap 17.6 H (5.0-14.0) mmol/L BUN 10 (7-18) mg/dL Creatinine 0.9 (0.6-1.0) mg/dL Est Cr Clr Drug Dosing 61.12 mL/min Estimated GFR (MDRD) > 60 (>60) Glucose 83 (74-106) mg/dL Lactic Acid (0.4-2.0) mmol/L Calcium 9.5 (8.5-10.1) mg/dL Total Bilirubin 0.6 D (0.2-1.0) mg/dL AST 7 L (15-37) U/L ALT 27 (12-78) U/L Alkaline Phosphatase 131 H (46-116) U/L Ammonia < 17 (11-32) mmol/L Total Protein 6.9 (6.4-8.2) g/dL Albumin 3.6 (3.4-5.0) g/dL Globulin 3.3 (2.3-3.5) g/dL Albumin/Globulin Ratio 1.1 L (1.2-2.2) 12/06/ Range/Units 23:10 WBC (4.5-11.0) K/uL RBC (3.30-5.50) M/uL Hgb (12.0-15.0) g/dL Hct (36.0-48.0) % MCV (80-98) fL MCH (27-31) pg MCHC (32-36) % Plt Count (150-400) K/uL Neut % (Auto) (36-66) % Lymph % (Auto) (24-44) % [place] % (Auto) (2-6) % Eos % (Auto) (2-4) % Baso % (Auto) (0-1) % Sodium (140-148) mmol/L Potassium (3.6-5.2) mmol/L Chloride (100-108) mmol/L Carbon Dioxide (21-32) mmol/L Anion Gap (5.0-14.0) mmol/L BUN (7-18) mg/dL Creatinine (0.6-1.0) mg/dL Est Cr Clr Drug Dosing mL/min Estimated GFR (MDRD) (>60) Glucose (74-106) mg/dL Lactic Acid 0.6 (0.4-2.0) mmol/L Calcium (8.5-10.1) mg/dL Total Bilirubin (0.2-1.0) mg/dL AST (15-37) U/L ALT (12-78) U/L Alkaline Phosphatase (46-116) U/L Ammonia (11-32) mmol/L Total Protein (6.4-8.2) g/dL Albumin (3.4-5.0) g/dL Globulin (2.3-3.5) g/dL Albumin/Globulin Ratio (1.2-2.2) Departure - Departure Time of Disposition: 00:10 Disposition: Home, Self-Care 01 Condition: Poor Clinical Impression: Weakness generalized - Discharge Information Instructions: Weakness, Fpsw-[id number] Referrals: Zelda Rodriguez DO [Primary Care Provider] - Forms: ED Department Discharge Additional Instructions: Please contact your primary care provider for consultation with a environmental monitoring technician call return to the emergency department worsening of symptom s, Sepsis Event Note (ED) - Evaluation Sepsis Screening Result: No Definite Risk - Focused Exam Vital Signs: Vital Signs Temp Pulse Resp BP Pulse Ox 12/06/20 22:33 98.1 F 66 19 112/66 97 12/06/20 22:32 98.1 F 66 112/ 97 - Assessment/Plan Plan: Assessment Acuity = acute Site and laterality = weakness complicated patient with known history of hepatic encephalopathy Etiology = unknown Manifestations = none Location of injury = Home Lab values = lab value reported from clinic at noon today was 102, recheck lab work at this time approximately 12 hours later CBC CMP unremarkable ammonia level less than 17 lactic acid normal level Plan I did review lab work with her have asked her to contact her primary physician locums urgent care for consultation with a environmental monitoring technician for further review of her GI history This note was dictated using voxapp voice recognition software please call with any questions on syntax or grammar.
== END 2020-12-07 00:14 | disposition home or self-care (01) ==
LOC: JP.ED 21:53
DX: R53.1 Weakness (principal); R10.11 Right upper quadrant pain; R19.7 Diarrhea, unspecified; R53.83 Other fatigue; R41.0 Disorientation, unspecified; I25.10 Atherosclerotic heart disease of native coronary artery without angina pectoris; I25.2 Old myocardial infarction; J45.909 Unspecified asthma, uncomplicated; K21.9 Gastro-esophageal reflux disease without esophagitis; D50.9 Iron deficiency anemia, unspecified; Z72.0 Tobacco use; Z79.899 Other long term (current) drug therapy; Z91.013 Allergy to seafood; Z88.8 Allergy status to other drugs, medicaments and biological substances; Z88.1 Allergy status to other antibiotic agents; Z91.018 Allergy to other foods
CPT/HCPCS: 36415; 80053; 82140; 83605; 85025; 99282; 99284

== ENCOUNTER 2020-12-17 21:41 | Emergency (ER) | payer MEDICAID ==
--- NOTE | 2020-12-17 21:52 | EDM.PDOC ---
ED HPI GENERAL MEDICAL PROBLEM - General Chief Complaint: General Stated Complaint: MED[facility] Time Seen by Provider: 12/17/20 21:48 Source of Information: Reports: Patient, EMS, Old Records History Limitations: Reports: No Limitations - History of Present Illness INITIAL COMMENTS - FREE TEXT/NARRATIVE: Claudia is a 45-year-old female who is well-known to me presenting to the ED via [facility] for evaluation of an elevated ammonia level. Patient is well-known to me from previous experience with hepatic encephalopathy. She presented to the ED 12/06/2020 with a similar report and at the time the clinic had a lab ammonia level of 102 and recheck in the ED was 17. She is complaining of generalized body aches and right upper quadrant pain. The patient states that she has not been seen by gastroenterology but she is waiting for a letter in the mail from the you who is also going to evaluate her head. She states despite being on the lactulose she has not pooped. She is complaining of generalized body aches. She does not appear to be confused. Generalized Pain Score (Numeric/FACES): 8 - Related Data Allergies Allergy/AdvReac Type Severity Reaction Status Date / Time Fish Containing Products Allergy Severe Airway Verified 12/17/20 21:49 Tightness ziprasidone [From Geodon] Allergy Severe Airway Verified 12/17/20 21:49 Tightness cefazolin Allergy Cannot Verified 12/17/20 21:49 Remember shellfish derived Allergy Swelling Verified 12/17/20 21:49 tree nut Allergy Hives Verified 12/17/20 21:49 lamotrigine [From Lamictal] AdvReac Leg Cramps Verified 12/17/20 21:49 msg Allergy Hives Uncoded 12/17/20 21:49 Home Meds: Home Meds Cyanocobalamin (Vitamin B-12) [B-12] 250 mcg PO DAILY 07/29/17 [History] Gabapentin [Neurontin] 200 mg PO BID 07/29/17 [History] Lactulose 15 ml PO QID 07/29/17 [History] levETIRAcetam [Keppra] 500 mg PO BID 07/29/17 [History] Omeprazole 40 mg PO BID 10/19/17 [History] Cholecalciferol (Vitamin D3) [Vitamin D3] 1 tab PO DAILY 09/16/19 [History] Folic Acid 1 mg PO DAILY 09/16/19 [History] Albuterol Sulfate [Proventil Hfa] 6.7 gm IH Q4H 09/29/19 [History] Albuterol [Proventil Neb Soln] 2.5 mg INH Q4H PRN 09/29/19 [History] Ferrous Gluconate 324 mg PO DAILY 09/29/19 [History] Furosemide 40 mg PO DAILY 09/29/19 [History] Nitroglycerin [Nitrostat] 0.4 mg SL ASDIRECTED PRN 09/29/19 [History] Rifaximin [Xifaxan] 550 mg PO BID 09/29/19 [History] Spironolactone [Aldactone] 100 mg PO DAILY 09/29/19 [History] Thiamine [Vitamin B-1] 1 tab PO DAILY 09/29/19 [History] oxyCODONE 10 mg PO Q4H PRN 09/29/19 [History] Meclizine [Antivert] 12.5 mg PO TID 11/28/19 [History] Topiramate 100 mg PO BID 07/22/20 [History] Calcium Carbonate [Tums] 500 mg PO ASDIRECTED 11/23/20 [History] Eszopiclone [Lunesta] 1 mg PO BEDTIME 11/23/20 [History] Magnesium Oxide 400 mg PO DAILY 11/23/20 [History] Potassium Chloride 20 meq PO DAILY 11/23/20 [History] ondansetron HCL [Zofran] 4 mg PO Q8HR PRN 11/23/20 [History] Sucralfate [Carafate] 1 gm PO QID 12/06/20 [History] Vortioxetine Hydrobromide [Brintellix] 10 mg PO DAILY 12/06/20 [History] Past Medical History HEENT History: Reports: Hard of Hearing, Impaired Vision Cardiovascular History: Reports: CAD, SD, Other (See Below) Other Cardiovascular History: portal hypertension. SD was 2002 Respiratory History: Reports: Asthma Gastrointestinal History: Reports: Cirrhosis, GERD, Other (See Below) Other Gastrointestinal History: ascites, liver disease, cholecystitis, hepatic encephalopathy, stent placed in liver, voices that she is in last stages of liver failure. Genitourinary History: Reports: Renal Calculus, Other (See Below) Other Genitourinary History: urethral stent placed that extends to kidney ZIPPER IRONER History: Reports: , Spontaneous , Other (See Below) Other ZIPPER IRONER History: Irregular [place] Musculoskeletal History: Reports: Back Pain, Chronic, Fracture, Other (See Below) Other Musculoskeletal History: colar bone, Neurological History: Reports: Brain Injury, CVA, Head Trauma, Seizure, Vertigo, Other (See Below) Other Neuro History: TBI ICH Skull defect Psychiatric History: Reports: Addiction, Anxiety, Depression, Psych Hospitalization(s), Suicide Attempt Hematologic History: Reports: Blood Transfusion(s), Iron Deficiency, Other (See Below) Other Hematologic History: Hypokelemia, hypomagnesemia, hyponatremia Oncologic (Cancer) History: Reports: Cervix - Infectious Disease History Infectious Disease History: Reports: Chicken Pox - Past Surgical History Head Surgeries/Procedures: Reports: None HEENT Surgical History: Reports: Adenoidectomy, Tonsillectomy Cardiovascular Surgical History: Reports: Coronary Artery Bypass Other Cardiovascular Surgeries/Procedures: cabg x 1 Respiratory Surgical History: Reports: None GI Surgical History: Reports: Appendectomy, Cholecystectomy, EGD Female Surgical History: Reports: Cystectomy, Other (See Below) Other Female Surgeries/Procedures: removal of abscess from left breast Neurological Surgical History: Reports: None Musculoskeletal Surgical History: Reports: None, Carpal Tunnel Oncologic Surgical History: Reports: None Dermatological Surgical History: Reports: None Social & Family History - Family History Family Medical History: No Pertinent Family History - Caffeine Use Caffeine Use: Reports: Coffee Caffeine Use Comment: one cup of coffee and one cup of tea - Living Situation & Occupation Living situation: Reports: Single Occupation: Disabled (lives in Apartment, Sister and Uncle live in same building.) ED ROS GENERAL - Review of Systems Review Of Systems: See Below Constitutional: Reports: Malaise HEENT: Reports: No Symptoms Respiratory: Reports: No Symptoms Cardiovascular: Reports: No Symptoms Endocrine: Reports: No Symptoms GI/Abdominal: Reports: Abdominal Pain (Chronic right upper quadrant abdominal pain), Constipation : Reports: No Symptoms Musculoskeletal: Reports: Muscle Pain Skin: Reports: No Symptoms Neurological: Reports: No Symptoms Psychiatric: Reports: Anxiety Hematologic/Lymphatic: Reports: No Symptoms Immunologic: Reports: No Symptoms ED EXAM, GENERAL - Physical Exam Exam: See Below Exam Limited By: No Limitations General Appearance: Alert, Mild Distress Eye Exam: Bilateral Eye: EOMI, PERRL Throat/Mouth: Normal Oropharynx, Normal Voice, No Airway Compromise Head: 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 No: Guarding, Rebound, Hepatomegaly, Splenomegaly Back Exam: Normal Inspection, Full Range of Motion Extremities: Normal Inspection, Normal Range of Motion Neurological: Alert, Oriented, Normal Cognition, No Motor/Sensory Deficits Psychiatric: Normal Affect, Anxious Skin Exam: Warm, Dry, Intact, Normal Color Lymphatic: No Adenopathy Course - Vital Signs Last Recorded V/S: Last Vital Signs Temp 36.8 C 12/17/20 21:55 Pulse 73 12/17/20 21:55 Resp 14 12/17/20 21:55 BP 103/58 L 12/17/20 21:55 Pulse Ox 98 12/17/20 21:55 - Orders/Labs/Meds Orders: Active Orders 24 hr Category Date Time Status Abdomen 2V AP Flat Upright [CR] Stat Exams 12/17/20 22:11 Ordered Labs: Laboratory Tests 12/17/20 12/17/20 12/17/20 Range/Units 22:00 22:01 22:01 WBC 6.2 (4.5-11.0) K/uL RBC 4.13 (3.30-5.50) M/uL Hgb 12.8 (12.0-15.0) g/dL Hct 38.9 (36.0-48.0) % MCV 94 (80-98) fL MCH 31 (27-31) pg MCHC 33 (32-36) % Plt Count 101 L (150-400) K/uL Neut % (Auto) 36 (36-66) % Lymph % (Auto) 51 H (24-44) % [place] % (Auto) 11 H (2-6) % Eos % (Auto) 2 (2-4) % Baso % (Auto) 0 (0-1) % Sodium 146 (140-148) mmol/L Potassium 4.5 (3.6-5.2) mmol/L Chloride 108 (100-108) mmol/L Carbon Dioxide 24 (21-32) mmol/L Anion Gap 14.4 H (5.0-14.0) mmol/L BUN 14 (7-18) mg/dL Creatinine 1.2 H (0.6-1.0) mg/dL Est Cr Clr Drug Dosing 45.84 mL/min Estimated GFR (MDRD) 48 L (>60) Glucose 99 (74-106) mg/dL Calcium 9.4 (8.5-10.1) mg/dL Total Bilirubin 0.6 (0.2-1.0) mg/dL AST 34 D (15-37) U/L ALT 46 (12-78) U/L Alkaline Phosphatase 140 H (46-116) U/L Ammonia (11-32) umol/L Total Protein 6.4 (6.4-8.2) g/dL Albumin 3.3 L (3.4-5.0) g/dL Globulin 3.1 (2.3-3.5) g/dL Albumin/Globulin Ratio 1.1 L (1.2-2.2) Lipase 53 L (73-393) U/L Urine Color (YELLOW) Urine Appearance (CLEAR) Urine pH (5.0-8.0) Ur Specific [place] (1.008-1.030) Urine Protein (NEGATIVE) mg/dL Urine Glucose (UA) (NEGATIVE) mg/dL Urine Ketones (NEGATIVE) mg/dL Urine Occult Blood (NEGATIVE) Urine Nitrite (NEGATIVE) Urine Bilirubin (NEGATIVE) Urine Urobilinogen (0.2-1.0) EU/dL Ur Leukocyte Esterase (NEGATIVE) Urine RBC (0-5) Urine WBC (0-5) Ur Epithelial Cells Amorphous Sediment Urine Bacteria Urine Mucus Urine Opiates Screen (NEGATIVE) Ur Oxycodone Screen (NEGATIVE) Urine Methadone Screen (NEGATIVE) Ur Propoxyphene Screen (NEGATIVE) Ur Barbiturates Screen (NEGATIVE) Ur Tricyclics Screen (NEGATIVE) Ur Phencyclidine Scrn (NEGATIVE) Ur Amphetamine Screen (NEGATIVE) U Methamphetamines Scrn (NEGATIVE) Urine MDMA Screen (NEGATIVE) U Benzodiazepines Scrn (NEGATIVE) U Cocaine Metab Screen (NEGATIVE) U Marijuana (THC) Screen (NEGATIVE) Ethyl Alcohol < 3 mg/dL 12/17/20 12/17/20 12/17/20 Range/Units 22:01 22:24 22:24 WBC (4.5-11.0) K/uL RBC (3.30-5.50) M/uL Hgb (12.0-15.0) g/dL Hct (36.0-48.0) % MCV (80-98) fL MCH (27-31) pg MCHC (32-36) % Plt Count (150-400) K/uL Neut % (Auto) (36-66) % Lymph % (Auto) (24-44) % [place] % (Auto) (2-6) % Eos % (Auto) (2-4) % Baso % (Auto) (0-1) % Sodium (140-148) mmol/L Potassium (3.6-5.2) mmol/L Chloride (100-108) mmol/L Carbon Dioxide (21-32) mmol/L Anion Gap (5.0-14.0) mmol/L BUN (7-18) mg/dL Creatinine (0.6-1.0) mg/dL Est Cr Clr Drug Dosing mL/min Estimated GFR (MDRD) (>60) Glucose (74-106) mg/dL Calcium (8.5-10.1) mg/dL Total Bilirubin (0.2-1.0) mg/dL AST (15-37) U/L ALT (12-78) U/L Alkaline Phosphatase (46-116) U/L Ammonia 59 H (11-32) umol/L Total Protein (6.4-8.2) g/dL Albumin (3.4-5.0) g/dL Globulin (2.3-3.5) g/dL Albumin/Globulin Ratio (1.2-2.2) Lipase (73-393) U/L Urine Color Yellow (YELLOW) Urine Appearance Cloudy A (CLEAR) Urine pH 7.5 (5.0-8.0) Ur Specific [place] 1.020 (1.008-1.030) Urine Protein Negative (NEGATIVE) mg/dL Urine Glucose (UA) Negative (NEGATIVE) mg/dL Urine Ketones Negative (NEGATIVE) mg/dL Urine Occult Blood Trace-intact H (NEGATIVE) Urine Nitrite Negative (NEGATIVE) Urine Bilirubin Negative (NEGATIVE) Urine Urobilinogen 0.2 (0.2-1.0) EU/dL Ur Leukocyte Esterase Negative (NEGATIVE) Urine RBC 0-5 (0-5) Urine WBC 0-5 (0-5) Ur Epithelial Cells Few Amorphous Sediment Few Urine Bacteria Many Urine Mucus Rare Urine Opiates Screen Negative (NEGATIVE) Ur Oxycodone Screen Presumptive positive H (NEGATIVE) Urine Methadone Screen Negative (NEGATIVE) Ur Propoxyphene Screen Negative (NEGATIVE) Ur Barbiturates Screen Negative (NEGATIVE) Ur Tricyclics Screen Negative (NEGATIVE) Ur Phencyclidine Scrn Negative (NEGATIVE) Ur Amphetamine Screen Negative (NEGATIVE) U Methamphetamines Scrn Negative (NEGATIVE) Urine MDMA Screen Negative (NEGATIVE) U Benzodiazepines Scrn Negative (NEGATIVE) U Cocaine Metab Screen Negative (NEGATIVE) U Marijuana (THC) Screen Negative (NEGATIVE) Ethyl Alcohol mg/dL Departure - Departure Time of Disposition: 22:34 Disposition: Home, Self-Care 01 Clinical Impression: Increased ammonia level Liver cirrhosis Qualifiers: Hepatic cirrhosis type: alcoholic cirrhosis Ascites presence: with ascites Qualified Code(s): K70.31 - Alcoholic cirrhosis of liver with ascites - Discharge Information Instructions: Cirrhosis Referrals: PCP,None [Primary Care Provider] - Forms: ED Department Discharge Care Plan Goals: Increase your lactulose to 30 g 3 times a day. Follow-up with your primary care provider, Dr. Rodriguez next week. Continue with other medication as before. Sepsis Event Note (ED) - Focused Exam Vital Signs: Vital Signs Temp Pulse Resp BP Pulse Ox 12/17/20 21:55 36.8 C 73 14 103/58 L 98 12/17/20 21:44 36.8 C 73 14 103/58 L 98 - Problem List & Annotations (1) Liver cirrhosis SNOMED Code(s): 90717964 Code(s): K74.60 - UNSPECIFIED CIRRHOSIS OF LIVER Status: Chronic Priority: High Current Visit: Yes Annotation/Comment:: Repeat ammonia level obtained and returned at 26. Patient's previous ammonia level was only 35. Sounds to be misinterpretation from patient's primary care provider reported level in the 110s. Qualifiers: Hepatic cirrhosis type: alcoholic cirrhosis Ascites presence: with ascites Qualified Code(s): K70.31 - Alcoholic cirrhosis of liver with ascites (2) Increased ammonia level SNOMED Code(s): 591907849, 504368044, 674473288 Code(s): R79.89 - OTHER SPECIFIED ABNORMAL FINDINGS OF BLOOD CHEMISTRY Status: Acute Priority: High Current Visit: Yes - Problem List Review Problem List Initiated/Reviewed/Updated: Yes - My Orders Last 24 Hours: My Active Orders 12/17/20 22:11 Abdomen 2V AP Flat Upright [CR] Stat - Assessment/Plan Last 24 Hours: My Active Orders 12/17/20 22:11 Abdomen 2V AP Flat Upright [CR] Stat
--- NOTE | 2020-12-20 09:09 | CR ---
Abdomen 2V AP Flat Upright CLINICAL HISTORY: Constipation FINDINGS: No free air is identified. Small intestinal configuration is nonacute. There is gas and feces throughout the colon. Patient has had previous TIPS procedure. There appears to been a previous ventral hernia repair in the epigastric region IMPRESSION: Nonacute intestinal gas pattern
== END 2020-12-17 23:00 | disposition home or self-care (01) ==
LOC: JP.ED 21:41
DX: K70.31 Alcoholic cirrhosis of liver with ascites (principal); E72.20 Disorder of urea cycle metabolism, unspecified; I25.10 Atherosclerotic heart disease of native coronary artery without angina pectoris; I25.2 Old myocardial infarction; J45.909 Unspecified asthma, uncomplicated; K21.9 Gastro-esophageal reflux disease without esophagitis; R56.9 Unspecified convulsions; Z91.018 Allergy to other foods; Z88.1 Allergy status to other antibiotic agents; Z88.8 Allergy status to other drugs, medicaments and biological substances; Z79.899 Other long term (current) drug therapy; Z86.73 Personal history of transient ischemic attack (TIA), and cerebral infarction without residual deficits
CPT/HCPCS: 36415; 74019; 74019-26; 80053; 80305-QW; 80307; 81001; 82140; 83690; 85025; 99284

== ENCOUNTER 2020-12-26 15:09 | Emergency (ER) | payer MEDICAID ==
[2020-12-26] MEDS ORDERED: Sodium Chloride 0.9% 10 ML Syringe FLUSH PRN (16:13)
[2020-12-26] MEDS ORDERED: Lactated Ringers 1,000 ML IV SCH (16:15)
--- NOTE | 2020-12-26 16:17 | EDM.PDOC ---
ED HPI GENERAL MEDICAL PROBLEM - General Chief Complaint: General Stated Complaint: MEDICAL [facility]IA [facility] Time Seen by Provider: 12/26/20 16:10 Source of Information: Reports: Patient, Old Records, RN Notes Reviewed History Limitations: Reports: No Limitations - History of Present Illness INITIAL COMMENTS - FREE TEXT/NARRATIVE: 45-year-old female presents emergency department today with complaint of weakness, she states it really started today she is also complaining some abdominal pain no nausea vomiting no shortness of breath generalized feeling poorly back and stomach Pain Score (Numeric/FACES): 5 - Related Data Allergies Allergy/AdvReac Type Severity Reaction Status Date / Time Fish Containing Products Allergy Severe Airway Verified 12/26/20 15:11 Tightness ziprasidone [From Geodon] Allergy Severe Airway Verified 12/26/20 15:11 Tightness cefazolin Allergy Cannot Verified 12/26/20 15:11 Remember shellfish derived Allergy Swelling Verified 12/26/20 15:11 tree nut Allergy Hives Verified 12/26/20 15:11 lamotrigine [From Lamictal] AdvReac Leg Cramps Verified 12/26/20 15:11 msg Allergy Hives Uncoded 12/26/20 15:11 Home Meds: Home Meds Cyanocobalamin (Vitamin B-12) [B-12] 250 mcg PO DAILY 07/29/17 [History] Gabapentin [Neurontin] 200 mg PO BID 07/29/17 [History] Lactulose 15 ml PO QID 07/29/17 [History] levETIRAcetam [Keppra] 500 mg PO BID 07/29/17 [History] Omeprazole 40 mg PO BID 10/19/17 [History] Cholecalciferol (Vitamin D3) [Vitamin D3] 1 tab PO DAILY 09/16/19 [History] Folic Acid 1 mg PO DAILY 09/16/19 [History] Albuterol Sulfate [Proventil Hfa] 6.7 gm IH Q4H 09/29/19 [History] Albuterol [Proventil Neb Soln] 2.5 mg INH Q4H PRN 09/29/19 [History] Ferrous Gluconate 324 mg PO DAILY 09/29/19 [History] Nitroglycerin [Nitrostat] 0.4 mg SL ASDIRECTED PRN 09/29/19 [History] Rifaximin [Xifaxan] 550 mg PO BID 09/29/19 [History] Spironolactone [Aldactone] 100 mg PO DAILY 09/29/19 [History] Thiamine [Vitamin B-1] 1 tab PO DAILY 09/29/19 [History] oxyCODONE 10 mg PO Q4H PRN 09/29/19 [History] Meclizine [Antivert] 12.5 mg PO TID 11/28/19 [History] Topiramate 100 mg PO BID 07/22/20 [History] Eszopiclone [Lunesta] 1 mg PO BEDTIME 11/23/20 [History] ondansetron HCL [Zofran] 4 mg PO Q8HR PRN 11/23/20 [History] Vortioxetine Hydrobromide [Brintellix] 10 mg PO DAILY 12/06/20 [History] Past Medical History HEENT History: Reports: Hard of Hearing, Impaired Vision Cardiovascular History: Reports: CAD, CA, Other (See Below) Other Cardiovascular History: portal hypertension. CA was 2002 Respiratory History: Reports: Asthma Gastrointestinal History: Reports: Cirrhosis, GERD, Other (See Below) Other Gastrointestinal History: ascites, liver disease, cholecystitis, hepatic encephalopathy, stent placed in liver, voices that she is in last stages of liver failure. Genitourinary History: Reports: Renal Calculus, Other (See Below) Other Genitourinary History: urethral stent placed that extends to kidney AUTOMATIC TOE LASTER History: Reports: , Spontaneous , Other (See Below) Other AUTOMATIC TOE LASTER History: Irregular [place] Musculoskeletal History: Reports: Back Pain, Chronic, Fracture, Other (See Below) Other Musculoskeletal History: collar bone, Neurological History: Reports: Brain Injury, CVA, Head Trauma, Seizure, Vertigo, Other (See Below) Other Neuro History: TBI ICH Skull defect Psychiatric History: Reports: Addiction, Anxiety, Depression, Psych Hospitalization(s), Suicide Attempt Hematologic History: Reports: Blood Transfusion(s), Iron Deficiency, Other (See Below) Other Hematologic History: Hypokelemia, hypomagnesemia, hyponatremia Oncologic (Cancer) History: Reports: Cervix - Infectious Disease History Infectious Disease History: Reports: Chicken Pox - Past Surgical History Head Surgeries/Procedures: Reports: Craniotomy HEENT Surgical History: Reports: Adenoidectomy, Tonsillectomy Cardiovascular Surgical History: Reports: Coronary Artery Bypass Other Cardiovascular Surgeries/Procedures: cabg x 1 Respiratory Surgical History: Reports: None GI Surgical History: Reports: Appendectomy, Cholecystectomy, EGD Female Surgical History: Reports: Cystectomy, Other (See Below) Other Female Surgeries/Procedures: removal of abscess from left breast Neurological Surgical History: Reports: None Musculoskeletal Surgical History: Reports: Carpal Tunnel Oncologic Surgical History: Reports: None Dermatological Surgical History: Reports: None Social & Family History - Family History Family Medical History: No Pertinent Family History - Tobacco Use Tobacco Use Status *Q: Current Every Day Tobacco User Years of Tobacco use: 30 Packs/Tins Daily: 0.5 - Caffeine Use Caffeine Use: Reports: Coffee, Tea Caffeine Use Comment: one cup of coffee and one cup of tea - Alcohol Use Date of Last Drink: 11/22/18 - Recreational Drug Use Recreational Drug Use: No - Living Situation & Occupation Living situation: Reports: Single Occupation: Disabled (lives in Apartment, Sister and Uncle live in same building.) ED ROS GENERAL - Review of Systems Review Of Systems: See Below Constitutional: Reports: Weakness, Fatigue. Denies: Fever, Chills HEENT: Reports: No Symptoms Respiratory: Reports: No Symptoms Cardiovascular: Reports: No Symptoms GI/Abdominal: Reports: Abdominal Pain. Denies: Diarrhea, Nausea, Vomiting : Reports: No Symptoms ED EXAM, GENERAL - Physical Exam Exam: See Below Exam Limited By: No Limitations General Appearance: Alert, WD/WN, No Apparent Distress Respiratory/Chest: No Respiratory Distress, Lungs Clear, Normal Breath Sounds, No Accessory Muscle Use, Chest Non-Tender Cardiovascular: Regular Rate, Rhythm, No Murmur GI/Abdominal: Soft, Non-Tender Course - Vital Signs Last Recorded V/S: Last Vital Signs Temp 97.6 F 12/26/20 15:29 Pulse 62 12/26/20 17:28 Resp 12 12/26/20 17:28 BP 119/60 12/26/20 17:28 Pulse Ox 100 12/26/20 17:28 - Orders/Labs/Meds Orders: Active Orders 24 hr Category Date Time Status Peripheral IV Care [RC] . DIRECTED Care 12/26/20 16:13 Active Abdomen 1V Upright [CR] Urgent Exams 12/26/20 16:13 Taken CULTURE URINE [RM] Urgent Lab 12/26/20 16:14 Received Lactated Ringers [Ringers, Lactated] 1,000 ml Med 12/26/20 16:15 Active IV ASDIRECTED Sodium Chloride 0.9% [Saline Flush] Med 12/26/20 16:13 Active 10 ml FLUSH ASDIRECTED PRN Peripheral IV Insertion Adult [OM.PC] Urgent Oth 12/26/20 16:13 Ordered Medication Orders Lactated Ringer's (Ringers, Lactated) 1,000 mls @ 999 mls/hr IV ASDIRECTED JOSE Last Admin: 12/26/20 16:27 Dose: 999 mls/hr Documented by: NATHANAEL Sodium Chloride (Sodium Chloride 0.9% 10 Ml Syringe) 10 ml FLUSH ASDIRECTED PRN PRN Reason: Keep Vein Open Last Admin: 12/26/20 16:27 Dose: 10 ml Documented by: NATHANAEL Labs: Laboratory Tests 12/26/20 12/26/20 12/26/20 Range/Units 15:47 16:15 16:20 WBC (4.5-11.0) K/uL RBC (3.30-5.50) M/uL Hgb (12.0-15.0) g/dL Hct (36.0-48.0) % MCV (80-98) fL MCH (27-31) pg MCHC (32-36) % Plt Count (150-400) K/uL Neut % (Auto) (36-66) % Lymph % (Auto) (24-44) % [place] % (Auto) (2-6) % Eos % (Auto) (2-4) % Baso % (Auto) (0-1) % Sodium (140-148) mmol/L Potassium (3.6-5.2) mmol/L Chloride (100-108) mmol/L Carbon Dioxide (21-32) mmol/L Anion Gap (5.0-14.0) mmol/L BUN (7-18) mg/dL Creatinine (0.6-1.0) mg/dL Est Cr Clr Drug Dosing mL/min Estimated GFR (MDRD) (>60) Glucose (74-106) mg/dL Lactic Acid (0.4-2.0) mmol/L Calcium (8.5-10.1) mg/dL Total Bilirubin (0.2-1.0) mg/dL AST (15-37) U/L ALT (12-78) U/L Alkaline Phosphatase (46-116) U/L Ammonia (11-32) umol/L Troponin I (0.000-0.056) ng/mL Total Protein (6.4-8.2) g/dL Albumin (3.4-5.0) g/dL Globulin (2.3-3.5) g/dL Albumin/Globulin Ratio (1.2-2.2) Lipase (73-393) U/L Urine Color Yellow (YELLOW) Urine Appearance Slightly cloudy A (CLEAR) Urine pH 6.0 (5.0-8.0) Ur Specific [place] >= 1.030 (1.008-1.030) Urine Protein Negative (NEGATIVE) mg/dL Urine Glucose (UA) Negative (NEGATIVE) mg/dL Urine Ketones Trace H (NEGATIVE) mg/dL Urine Occult Blood Small H (NEGATIVE) Urine Nitrite Negative (NEGATIVE) Urine Bilirubin Small H (NEGATIVE) Urine Urobilinogen 0.2 (0.2-1.0) EU/dL Ur Leukocyte Esterase Negative (NEGATIVE) Urine RBC 5-10 H (0-5) Urine WBC 0-5 (0-5) Ur Epithelial Cells Moderate Amorphous Sediment Not seen Urine Bacteria Many Urine Mucus Few Urine Opiates Screen Presumptive positive H (NEGATIVE) Ur Oxycodone Screen Presumptive positive H (NEGATIVE) Urine Methadone Screen Negative (NEGATIVE) Ur Propoxyphene Screen Negative (NEGATIVE) Ur Barbiturates Screen Negative (NEGATIVE) Ur Tricyclics Screen Negative (NEGATIVE) Ur Phencyclidine Scrn Negative (NEGATIVE) Ur Amphetamine Screen Negative (NEGATIVE) U Methamphetamines Scrn Negative (NEGATIVE) Urine MDMA Screen Negative (NEGATIVE) U Benzodiazepines Scrn Negative (NEGATIVE) U Cocaine Metab Screen Negative (NEGATIVE) U Marijuana (THC) Screen Negative (NEGATIVE) Influenza Type A RNA Negative (NEGATIVE) RSV RNA (INAAT) Negative (NEGATIVE) Influenza Type B RNA Negative (NEGATIVE) SARS-CoV-2 RNA (JOSETTE) Negative (NEGATIVE) 12/26/20 12/26/20 12/26/20 Range/Units 16:27 16:27 16:27 WBC 5.1 (4.5-11.0) K/uL RBC 3.84 (3.30-5.50) M/uL Hgb 12.2 (12.0-15.0) g/dL Hct 36.4 (36.0-48.0) % MCV 95 (80-98) fL MCH 32 H (27-31) pg MCHC 34 (32-36) % Plt Count 73 L (150-400) K/uL Neut % (Auto) 49 (36-66) % Lymph % (Auto) 38 (24-44) % [place]ett[place] % (Auto) 10 H (2-6) % Eos % (Auto) 2 (2-4) % Baso % (Auto) 0 (0-1) % Sodium 148 (140-148) mmol/L Potassium 3.5 L (3.6-5.2) mmol/L Chloride 113 H (100-108) mmol/L Carbon Dioxide 22 (21-32) mmol/L Anion Gap 16.5 H (5.0-14.0) mmol/L BUN 11 (7-18) mg/dL Creatinine 1.0 (0.6-1.0) mg/dL Est Cr Clr Drug Dosing 55.01 mL/min Estimated GFR (MDRD) 59 L (>60) Glucose 77 (74-106) mg/dL Lactic Acid 0.8 (0.4-2.0) mmol/L Calcium 9.1 (8.5-10.1) mg/dL Total Bilirubin 0.5 (0.2-1.0) mg/dL AST 28 (15-37) U/L ALT 31 (12-78) U/L Alkaline Phosphatase 134 H (46-116) U/L Ammonia (11-32) umol/L Troponin I < 0.017 (0.000-0.056) ng/mL Total Protein 6.1 L (6.4-8.2) g/dL Albumin 3.2 L (3.4-5.0) g/dL Globulin 2.9 (2.3-3.5) g/dL Albumin/Globulin Ratio 1.1 L (1.2-2.2) Lipase 57 L (73-393) U/L Urine Color (YELLOW) Urine Appearance (CLEAR) Urine pH (5.0-8.0) Ur Specific [place] (1.008-1.030) Urine Protein (NEGATIVE) mg/dL Urine Glucose (UA) (NEGATIVE) mg/dL Urine Ketones (NEGATIVE) mg/dL Urine Occult Blood (NEGATIVE) Urine Nitrite (NEGATIVE) Urine Bilirubin (NEGATIVE) Urine Urobilinogen (0.2-1.0) EU/dL Ur Leukocyte Esterase (NEGATIVE) Urine RBC (0-5) Urine WBC (0-5) Ur Epithelial Cells Amorphous Sediment Urine Bacteria Urine Mucus Urine Opiates Screen (NEGATIVE) Ur Oxycodone Screen (NEGATIVE) Urine Methadone Screen (NEGATIVE) Ur Propoxyphene Screen (NEGATIVE) Ur Barbiturates Screen (NEGATIVE) Ur Tricyclics Screen (NEGATIVE) Ur Phencyclidine Scrn (NEGATIVE) Ur Amphetamine Screen (NEGATIVE) U Methamphetamines Scrn (NEGATIVE) Urine MDMA Screen (NEGATIVE) U Benzodiazepines Scrn (NEGATIVE) U Cocaine Metab Screen (NEGATIVE) U Marijuana (THC) Screen (NEGATIVE) Influenza Type A RNA (NEGATIVE) RSV RNA (INAAT) (NEGATIVE) Influenza Type B RNA (NEGATIVE) SARS-CoV-2 RNA (JOSETTE) (NEGATIVE) 12/26/20 Range/Units 17:58 WBC (4.5-11.0) K/uL RBC (3.30-5.50) M/uL Hgb (12.0-15.0) g/dL Hct (36.0-48.0) % MCV (80-98) fL MCH (27-31) pg MCHC (32-36) % Plt Count (150-400) K/uL Neut % (Auto) (36-66) % Lymph % (Auto) (24-44) % Pett[place] % (Auto) (2-6) % Eos % (Auto) (2-4) % Baso % (Auto) (0-1) % Sodium (140-148) mmol/L Potassium (3.6-5.2) mmol/L Chloride (100-108) mmol/L Carbon Dioxide (21-32) mmol/L Anion Gap (5.0-14.0) mmol/L BUN (7-18) mg/dL Creatinine (0.6-1.0) mg/dL Est Cr Clr Drug Dosing mL/min Estimated GFR (MDRD) (>60) Glucose (74-106) mg/dL Lactic Acid (0.4-2.0) mmol/L Calcium (8.5-10.1) mg/dL Total Bilirubin (0.2-1.0) mg/dL AST (15-37) U/L ALT (12-78) U/L Alkaline Phosphatase (46-116) U/L Ammonia 61 H (11-32) umol/L Troponin I (0.000-0.056) ng/mL Total Protein (6.4-8.2) g/dL Albumin (3.4-5.0) g/dL Globulin (2.3-3.5) g/dL Albumin/Globulin Ratio (1.2-2.2) Lipase (73-393) U/L Urine Color (YELLOW) Urine Appearance (CLEAR) Urine pH (5.0-8.0) Ur Specific [place] (1.008-1.030) Urine Protein (NEGATIVE) mg/dL Urine Glucose (UA) (NEGATIVE) mg/dL Urine Ketones (NEGATIVE) mg/dL Urine Occult Blood (NEGATIVE) Urine Nitrite (NEGATIVE) Urine Bilirubin (NEGATIVE) Urine Urobilinogen (0.2-1.0) EU/dL Ur Leukocyte Esterase (NEGATIVE) Urine RBC (0-5) Urine WBC (0-5) Ur Epithelial Cells Amorphous Sediment Urine Bacteria Urine Mucus Urine Opiates Screen (NEGATIVE) Ur Oxycodone Screen (NEGATIVE) Urine Methadone Screen (NEGATIVE) Ur Propoxyphene Screen (NEGATIVE) Ur Barbiturates Screen (NEGATIVE) Ur Tricyclics Screen (NEGATIVE) Ur Phencyclidine Scrn (NEGATIVE) Ur Amphetamine Screen (NEGATIVE) U Methamphetamines Scrn (NEGATIVE) Urine MDMA Screen (NEGATIVE) U Benzodiazepines Scrn (NEGATIVE) U Cocaine Metab Screen (NEGATIVE) U Marijuana (THC) Screen (NEGATIVE) Influenza Type A RNA (NEGATIVE) RSV RNA (INAAT) (NEGATIVE) Influenza Type B RNA (NEGATIVE) SARS-CoV-2 RNA (JOSETTE) (NEGATIVE) Meds: Medications Generic Name Dose Route Start Last Admin Trade Name Freq PRN Reason Stop Dose Admin Lactated Ringer's 1,000 mls @ 999 mls/hr 12/26/20 16:15 12/26/20 16:27 Ringers, Lactated IV 999 mls/hr ASDIRECTED JOSE Administration Sodium Chloride 10 ml 12/26/20 16:13 12/26/20 16:27 Sodium Chloride 0.9% 10 Ml Syringe FLUSH 10 ml ASDIRECTED PRN Administration Keep Vein Open Departure - Departure Time of Disposition: 18:20 Disposition: Home, Self-Care 01 Condition: Fair Clinical Impression: Weakness - Discharge Information Instructions: Weakness, [id number] Referrals: PCP,None [Primary Care Provider] - Forms: ED Department Discharge Additional Instructions: Please keep your follow-up appointment with gastroenterology in the morning call or return to the emergency department worsening of symptoms Sepsis Event Note (ED) - Evaluation Sepsis Screening Result: No Definite Risk - Focused Exam Vital Signs: Vital Signs Temp Pulse Resp BP Pulse Ox 12/26/20 17:28 62 12 119/60 100 12/26/20 16:27 62 12 110/57 L 100 12/26/20 16:07 62 12 90/47 L 99 12/26/20 15:29 97.6 F 87 16 131/73 96 12/26/20 15:11 97.6 F 87 16 131/73 96 - My Orders Last 24 Hours: My Active Orders 12/26/20 16:13 Peripheral IV Care [RC] . DIRECTED Abdomen 1V Upright [CR] Urgent Sodium Chloride 0.9% [Saline Flush] 10 ml FLUSH ASDIRECTED PRN Peripheral IV Insertion Adult [OM.PC] Urgent 12/26/20 16:14 CULTURE URINE [RM] Urgent 12/26/20 16:15 Lactated Ringers [Ringers, Lactated] 1,000 ml IV ASDIRECTED - Assessment/Plan Last 24 Hours: My Active Orders 12/26/20 16:13 Peripheral IV Care [RC] . DIRECTED Abdomen 1V Upright [CR] Urgent Sodium Chloride 0.9% [Saline Flush] 10 ml FLUSH ASDIRECTED PRN Peripheral IV Insertion Adult [OM.PC] Urgent 12/26/20 16:14 CULTURE URINE [RM] Urgent 12/26/20 16:15 Lactated Ringers [Ringers, Lactated] 1,000 ml IV ASDIRECTED Plan: Assessment Acuity = acute Site and laterality = weakness Etiology = unknown possibly related to elevated ammonia level Manifestations = none Location of injury = Home Lab values = CBC CMP unremarkable ammonia level is elevated at 61, urinalysis does have 5-10 RBCs consistent hematuria specific gravity 1.03 Plan I did review lab work options with her she states she has taken her lactulose she does have an appointment with gastroenterology tomorrow therefore she will be discharged home follow-up with GI in the morning This note was dictated using [employer] voice recognition software please call with any questions on syntax or grammar.
[2020-12-26 17:07] LABS: CORONAVIRUS COVID-19 NAA NEGATIVE (NEGATIVE)
--- NOTE | 2020-12-27 10:25 | CR ---
Abdomen 1V Upright CLINICAL HISTORY: Pain FINDINGS: No free air is identified. There is been upper abdominal surgery including TIPS procedure. Patient has had a previous ventral hernia repair. Small intestinal gas pattern is nonacute. There is moderate to stool throughout the colon IMPRESSION: Nonacute intestinal gas pattern Moderate fecal retention
== END 2020-12-26 18:34 | disposition home or self-care (01) ==
LOC: JP.ED 15:09
DX: R53.1 Weakness (principal); I25.10 Atherosclerotic heart disease of native coronary artery without angina pectoris; I25.2 Old myocardial infarction; J45.909 Unspecified asthma, uncomplicated; I10 Essential (primary) hypertension; Z95.1 Presence of aortocoronary bypass graft; Z72.0 Tobacco use; Z79.899 Other long term (current) drug therapy; Z20.822 Contact with and (suspected) exposure to COVID-19; Z91.013 Allergy to seafood; Z91.018 Allergy to other foods; Z88.8 Allergy status to other drugs, medicaments and biological substances
CPT/HCPCS: 0241U; 36415; 74018; 80053; 80305; 81001; 82140; 83605; 83690; 84484; 85025; 87086; 99283; 99285; J7120

== ENCOUNTER 2021-01-10 08:22 | Emergency (ER) | payer MEDICAID ==
--- NOTE | 2021-01-10 08:46 | EDM.PDOC ---
ED HPI GENERAL MEDICAL PROBLEM - General Chief Complaint: Cardiovascular Problem Stated Complaint: CHEST PAIN, SOB, HIGH BP Time Seen by Provider: 01/10/21 09:17 Source of Information: Reports: Patient, RN Notes Reviewed History Limitations: Reports: No Limitations - History of Present Illness INITIAL COMMENTS - FREE TEXT/NARRATIVE: 45-year-old female with multiple medical problems presents emergency department a complaint of not feeling well, she states is been feeling ill for the last 3 days states she has been taking all of her medications she has had multiple syncopal events she believes that her blood pressure may be dropping or she is having palpitations. At this time she has no nausea or vomiting she does complain of some shortness of breath no GI symptoms Back Pain Score (Numeric/FACES): 8 - Related Data Allergies Allergy/AdvReac Type Severity Reaction Status Date / Time Fish Containing Products Allergy Severe Airway Verified 01/10/21 08:58 Tightness ziprasidone [From Geodon] Allergy Severe Airway Verified 01/10/21 08:58 Tightness cefazolin Allergy Cannot Verified 01/10/21 08:58 Remember shellfish derived Allergy Swelling Verified 01/10/21 08:58 tree nut Allergy Hives Verified 01/10/21 08:58 lamotrigine [From Lamictal] AdvReac Leg Cramps Verified 01/10/21 08:58 msg Allergy Hives Uncoded 01/10/21 08:58 Home Meds: Home Meds Cyanocobalamin (Vitamin B-12) [B-12] 250 mcg PO DAILY 07/29/17 [History] Gabapentin [Neurontin] 200 mg PO BID 07/29/17 [History] Lactulose 15 ml PO QID 07/29/17 [History] levETIRAcetam [Keppra] 500 mg PO BID 07/29/17 [History] Omeprazole 40 mg PO BID 10/19/17 [History] Cholecalciferol (Vitamin D3) [Vitamin D3] 1 tab PO DAILY 09/16/19 [History] Folic Acid 1 mg PO DAILY 09/16/19 [History] Albuterol Sulfate [Proventil Hfa] 6.7 gm IH Q4H 09/29/19 [History] Albuterol [Proventil Neb Soln] 2.5 mg INH Q4H PRN 09/29/19 [History] Ferrous Gluconate 324 mg PO DAILY 09/29/19 [History] Nitroglycerin [Nitrostat] 0.4 mg SL ASDIRECTED PRN 09/29/19 [History] Rifaximin [Xifaxan] 550 mg PO BID 09/29/19 [History] Spironolactone [Aldactone] 100 mg PO DAILY 09/29/19 [History] Thiamine [Vitamin B-1] 1 tab PO DAILY 09/29/19 [History] oxyCODONE 10 mg PO Q4H PRN 09/29/19 [History] Meclizine [Antivert] 12.5 mg PO TID 11/28/19 [History] Topiramate 100 mg PO BID 07/22/20 [History] Eszopiclone [Lunesta] 1 mg PO BEDTIME 11/23/20 [History] ondansetron HCL [Zofran] 4 mg PO Q8HR PRN 11/23/20 [History] Vortioxetine Hydrobromide [Brintellix] 10 mg PO DAILY 12/06/20 [History] Past Medical History HEENT History: Reports: Hard of Hearing, Impaired Vision Cardiovascular History: Reports: CAD, PR, Other (See Below) Other Cardiovascular History: portal hypertension. PR was 2002 Respiratory History: Reports: Asthma Gastrointestinal History: Reports: Cirrhosis, GERD, Other (See Below) Other Gastrointestinal History: ascites, liver disease, cholecystitis, hepatic encephalopathy, stent placed in liver, voices that she is in last stages of liver failure. 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: Irregular [place] Musculoskeletal History: Reports: Back Pain, Chronic, Fracture, Other (See Below) Other Musculoskeletal History: collar bone, Neurological History: Reports: Brain Injury, CVA, Head Trauma, Seizure, Vertigo, Other (See Below) Other Neuro History: TBI ICH Skull defect Psychiatric History: Reports: Addiction, Anxiety, Depression, Psych Hospitalization(s), Suicide Attempt Hematologic History: Reports: Blood Transfusion(s), Iron Deficiency, Other (See Below) Other Hematologic History: Hypokelemia, hypomagnesemia, hyponatremia Oncologic (Cancer) History: Reports: Cervix - Infectious Disease History Infectious Disease History: Reports: Chicken Pox - Past Surgical History Head Surgeries/Procedures: Reports: Craniotomy HEENT Surgical History: Reports: Adenoidectomy, Tonsillectomy Cardiovascular Surgical History: Reports: Coronary Artery Bypass Other Cardiovascular Surgeries/Procedures: cabg x 1 Respiratory Surgical History: Reports: None GI Surgical History: Reports: Appendectomy, Cholecystectomy, EGD Female Surgical History: Reports: Cystectomy, Other (See Below) Other Female Surgeries/Procedures: removal of abscess from left breast Neurological Surgical History: Reports: None Musculoskeletal Surgical History: Reports: Carpal Tunnel Oncologic Surgical History: Reports: None Dermatological Surgical History: Reports: None Social & Family History - Family History Family Medical History: No Pertinent Family History - Tobacco Use Tobacco Use Status *Q: Current Every Day Tobacco User Years of Tobacco use: 30 Packs/Tins Daily: 0.5 - Caffeine Use Caffeine Use: Reports: Coffee, Tea Caffeine Use Comment: one cup of coffee and one cup of tea - Recreational Drug Use Recreational Drug Use: No - Living Situation & Occupation Living situation: Reports: Single Occupation: Disabled (lives in Apartment, Sister and Uncle live in same [facility]) ED ROS GENERAL - Review of Systems Review Of Systems: See Below Constitutional: Reports: Fever (Feverish at home), Chills, Weakness HEENT: Reports: No Symptoms Respiratory: Reports: Shortness of Breath Cardiovascular: Reports: Chest Pain, Dyspnea on Exertion GI/Abdominal: Reports: No Symptoms Musculoskeletal: Reports: Back Pain Neurological: Reports: No Symptoms Psychiatric: Reports: Anxiety ED EXAM, GENERAL - Physical Exam Exam: See Below Exam Limited By: No Limitations General Appearance: Alert, WD/WN, No Apparent Distress Eye Exam: Bilateral Eye: Normal Inspection, PERRL Ears: Normal External Exam, Normal Canal, Hearing Grossly Normal, Normal TMs Nose: Normal Inspection, Normal Mucosa, No Blood Throat/Mouth: Normal Inspection, Normal Lips, Normal Teeth, Normal Gums, Normal Oropharynx, Normal Voice, No Airway Compromise Neck: Normal Inspection, Supple, Non-Tender, Full Range of Motion Respiratory/Chest: No Respiratory Distress, Lungs Clear, Normal Breath Sounds, No Accessory Muscle Use, Chest Non-Tender Cardiovascular: Regular Rate, Rhythm, No Murmur GI/Abdominal: Soft, Non-Tender Extremities: No Pedal Edema #1 Interpretation EKG Date: 01/10/21 Time: 08:46 Rhythm: NSR [place]: Normal P-Wave: Present QRS: Normal ST-T: Normal QT: Normal Comparison: No Change Course - Orders/Labs/Meds Orders: Active Orders 24 hr Category Date Time Status Cardiac Monitoring [RC] .As Directed Care 01/10/21 09:16 Active EKG Documentation Completion [RC] ASDIRECTED Care 01/10/21 09:17 Active EKG 12 Lead [EK] Stat Ther 01/10/21 09:16 Ordered Labs: Laboratory Tests 01/10/21 01/10/21 01/10/21 Range/Units 09:25 09:25 09:25 WBC 4.7 (4.5-11.0) K/uL RBC 3.91 (3.30-5.50) M/uL Hgb 12.4 (12.0-15.0) g/dL Hct 36.8 (36.0-48.0) % MCV 94 (80-98) fL MCH 32 H (27-31) pg MCHC 34 (32-36) % Plt Count 126 L (150-400) K/uL Neut % (Auto) 34 L (36-66) % Lymph % (Auto) 47 H (24-44) % [place] % (Auto) 14 H (2-6) % Eos % (Auto) 5 H (2-4) % Baso % (Auto) 1 (0-1) % Sodium 143 (140-148) mmol/L Potassium 4.3 (3.6-5.2) mmol/L Chloride 110 H (100-108) mmol/L Carbon Dioxide 22 (21-32) mmol/L Anion Gap 15.3 H (5.0-14.0) mmol/L BUN 9 (7-18) mg/dL Creatinine 0.9 (0.6-1.0) mg/dL Est Cr Clr Drug Dosing TNP Estimated GFR (MDRD) > 60 (>60) Glucose 84 (74-106) mg/dL Lactic Acid (0.4-2.0) mmol/L Calcium 9.1 (8.5-10.1) mg/dL Total Bilirubin 0.5 (0.2-1.0) mg/dL AST 22 (15-37) U/L ALT 25 (12-78) U/L Alkaline Phosphatase 120 H (46-116) U/L Ammonia 31 (11-32) umol/L Troponin I < 0.017 (0.000-0.056) ng/mL Total Protein 6.5 (6.4-8.2) g/dL Albumin 3.2 L (3.4-5.0) g/dL Globulin 3.3 (2.3-3.5) g/dL Albumin/Globulin Ratio 1.0 L (1.2-2.2) Lipase 50 L (73-393) U/L Ethyl Alcohol mg/dL 01/10/21 01/10/21 Range/Units 09:25 09:25 WBC (4.5-11.0) K/uL RBC (3.30-5.50) M/uL Hgb (12.0-15.0) g/dL Hct (36.0-48.0) % MCV (80-98) fL MCH (27-31) pg MCHC (32-36) % Plt Count (150-400) K/uL Neut % (Auto) (36-66) % Lymph % (Auto) (24-44) % [place] % (Auto) (2-6) % Eos % (Auto) (2-4) % Baso % (Auto) (0-1) % Sodium (140-148) mmol/L Potassium (3.6-5.2) mmol/L Chloride (100-108) mmol/L Carbon Dioxide (21-32) mmol/L Anion Gap (5.0-14.0) mmol/L BUN (7-18) mg/dL Creatinine (0.6-1.0) mg/dL Est Cr Clr Drug Dosing Estimated GFR (MDRD) (>60) Glucose (74-106) mg/dL Lactic Acid 0.8 (0.4-2.0) mmol/L Calcium (8.5-10.1) mg/dL Total Bilirubin (0.2-1.0) mg/dL AST (15-37) U/L ALT (12-78) U/L Alkaline Phosphatase (46-116) U/L Ammonia (11-32) umol/L Troponin I (0.000-0.056) ng/mL Total Protein (6.4-8.2) g/dL Albumin (3.4-5.0) g/dL Globulin (2.3-3.5) g/dL Albumin/Globulin Ratio (1.2-2.2) Lipase (73-393) U/L Ethyl Alcohol < 3 mg/dL Departure - Departure Time of Disposition: 10:40 Disposition: Home, Self-Care 01 Condition: Fair Clinical Impression: Ill feeling Referrals: Zelda Rodriguez DO [Primary Care Provider] - Forms: ED Department Discharge Additional Instructions: Continue with your regular medications, please follow-up with your primary care in the next 3 to 5 days if not better - My Orders Last 24 Hours: My Active Orders 01/10/21 09:16 Cardiac Monitoring [RC] .As Directed EKG 12 Lead [EK] Stat 01/10/21 09:17 EKG Documentation Completion [RC] ASDIRECTED - Assessment/Plan Last 24 Hours: My Active Orders 01/10/21 09:16 Cardiac Monitoring [RC] .As Directed EKG 12 Lead [EK] Stat 01/10/21 09:17 EKG Documentation Completion [RC] ASDIRECTED Plan: Assessment Acuity = acute Site and laterality = feeling ill Etiology = unknown Manifestations = none Location of injury = Home Lab values = CBC CMP troponin lipase ammonia level all within normal limits EKG demonstrates sinus rhythm chest x-ray shows no acute process Plan I did review lab work EKG chest x-ray results with her aspirin follow-up with your primary care in the next 3 to 5 days if not better This note was dictated using [employer] voice recognition software please call with any questions on syntax or grammar.
--- NOTE | 2021-01-10 10:03 | CR ---
CHEST: 2 view CLINICAL HISTORY:Chest pain COMPARISON:2020 FINDINGS: There has been previous sternotomy. The heart size, pulmonary vascularity and hilar structures are normal. No infiltrate effusion or pneumothorax is seen. IMPRESSION: No acute cardiopulmonary process.
== END 2021-01-10 10:51 | disposition home or self-care (01) ==
LOC: JP.ED 08:22
DX: R69 Illness, unspecified (principal); I25.10 Atherosclerotic heart disease of native coronary artery without angina pectoris; I25.2 Old myocardial infarction; J45.909 Unspecified asthma, uncomplicated; K21.9 Gastro-esophageal reflux disease without esophagitis; R56.9 Unspecified convulsions; Z72.0 Tobacco use; Z91.013 Allergy to seafood; Z88.8 Allergy status to other drugs, medicaments and biological substances; Z88.1 Allergy status to other antibiotic agents; Z91.018 Allergy to other foods; Z86.73 Personal history of transient ischemic attack (TIA), and cerebral infarction without residual deficits
CPT/HCPCS: 36415; 71046; 71046-26; 80053; 80307; 82140; 83605; 83690; 84484; 85025; 99285-25

== ENCOUNTER 2021-01-30 15:50 | Emergency (ER) | payer MEDICAID ==
[2021-01-30] MEDS ORDERED: Alum Hydrox/Mag Hydrox/Simeth 15 ML, Lidocaine 2% 15 ML PO ONE ×2 (16:17)
--- NOTE | 2021-01-30 16:23 | EDM.PDOC ---
ED HPI GENERAL MEDICAL PROBLEM - General Chief Complaint: Abdominal Pain Stated Complaint: MEDICAL VIA [place]TH Time Seen by Provider: 01/30/21 16:00 Source of Information: Reports: Patient, Old Records, RN History Limitations: Reports: No Limitations - History of Present Illness INITIAL COMMENTS - FREE TEXT/NARRATIVE: 45 yo female presents with LUQ abdominal pain. 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 Is currently not drinking. Was recently told she had splenomegaly. Pain began a few days ago and is getting worse. No vomiting. BM's chronically somewhat loose from her Lactulose. No fever. Eating makes her pain worse. Lying down reduces her pain. Standing and sitting worsens her pain. Her abdominal girth has not changed. No chills. No black or bloody stools. Onset: Gradual Duration: Day(s):, Getting Worse Location: Reports: Abdomen Quality: Reports: Ache Severity: Moderate Improves with: Reports: Other (lying). Denies: Eating Worsens with: Reports: Eating, Other (or being vertical) Context: Reports: Other (See HPI) Associated Symptoms: Reports: Loss of Appetite. 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) (none) - Related Data Allergies Allergy/AdvReac Type Severity Reaction Status Date / Time Fish Containing Products Allergy Severe Airway Verified 01/30/21 15:52 Tightness ziprasidone [From Geodon] Allergy Severe Airway Verified 01/30/21 15:52 Tightness cefazolin Allergy Cannot Verified 01/30/21 15:52 Remember shellfish derived Allergy Swelling Verified 01/30/21 15:52 tree nut Allergy Hives Verified 01/30/21 15:52 lamotrigine [From Lamictal] AdvReac Leg Cramps Verified 01/30/21 15:52 msg Allergy Hives Uncoded 01/30/21 15:52 Home Meds: Home Meds Cyanocobalamin (Vitamin B-12) [B-12] 250 mcg PO DAILY 07/29/17 [History] Gabapentin [Neurontin] 200 mg PO BID 07/29/17 [History] Lactulose 15 ml PO QID 07/29/17 [History] levETIRAcetam [Keppra] 500 mg PO BID 07/29/17 [History] Omeprazole 40 mg PO BID 10/19/17 [History] Cholecalciferol (Vitamin D3) [Vitamin D3] 1 tab PO DAILY 09/16/19 [History] Folic Acid 1 mg PO DAILY 09/16/19 [History] Albuterol Sulfate [Proventil Hfa] 6.7 gm IH Q4H 09/29/19 [History] Albuterol [Proventil Neb Soln] 2.5 mg INH Q4H PRN 09/29/19 [History] Ferrous Gluconate 324 mg PO DAILY 09/29/19 [History] Nitroglycerin [Nitrostat] 0.4 mg SL ASDIRECTED PRN 09/29/19 [History] Rifaximin [Xifaxan] 550 mg PO BID 09/29/19 [History] Spironolactone [Aldactone] 100 mg PO DAILY 09/29/19 [History] Thiamine [Vitamin B-1] 1 tab PO DAILY 09/29/19 [History] oxyCODONE 10 mg PO Q4H PRN 09/29/19 [History] Meclizine [Antivert] 12.5 mg PO TID 11/28/19 [History] Topiramate 100 mg PO BID 07/22/20 [History] Eszopiclone [Lunesta] 1 mg PO BEDTIME 11/23/20 [History] ondansetron HCL [Zofran] 4 mg PO Q8HR PRN 11/23/20 [History] Vortioxetine Hydrobromide [Brintellix] 10 mg PO DAILY 12/06/20 [History] Past Medical History HEENT History: Reports: Hard of Hearing, Impaired Vision Cardiovascular History: Reports: CAD, [place], Other (See Below) Other Cardiovascular History: portal hypertension. [place] was 2002 Respiratory History: Reports: Asthma Gastrointestinal History: Reports: Cirrhosis, GERD, Other (See Below) Other Gastrointestinal History: ascites, liver disease, cholecystitis, hepatic encephalopathy, stent placed in liver, voices that she is in last stages of liver failure. 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 [place] Musculoskeletal History: Reports: Back Pain, Chronic, Fracture, Other (See Below) Other Musculoskeletal History: collar bone, Neurological History: Reports: Brain Injury, CVA, Head Trauma, Seizure, Vertigo, Other (See Below) Other Neuro History: TBI ICH Skull defect Psychiatric History: Reports: Addiction, Anxiety, Depression, Psych Hospitalization(s), Suicide Attempt Hematologic History: Reports: Blood Transfusion(s), Iron Deficiency, Other (See Below) Other Hematologic History: Hypokelemia, hypomagnesemia, hyponatremia Oncologic (Cancer) History: Reports: Cervix - Infectious Disease History Infectious Disease History: Reports: Chicken Pox - Past Surgical History Head Surgeries/Procedures: Reports: Craniotomy HEENT Surgical History: Reports: Adenoidectomy, Tonsillectomy Cardiovascular Surgical History: Reports: Coronary Artery Bypass Other Cardiovascular Surgeries/Procedures: cabg x 1 Respiratory Surgical History: Reports: None GI Surgical History: Reports: Appendectomy, Cholecystectomy, EGD Female Surgical History: Reports: Cystectomy, Other (See Below) Other Female Surgeries/Procedures: removal of abscess from left breast Neurological Surgical History: Reports: None Musculoskeletal Surgical History: Reports: Carpal Tunnel Oncologic Surgical History: Reports: None Dermatological Surgical History: Reports: None Social & Family History - Family History Family Medical History: No Pertinent Family History - Tobacco Use Tobacco Use Status *Q: Current Every Day Tobacco User Years of Tobacco use: 30 Packs/Tins Daily: 0.3 Used Tobacco, but Quit: No Second Hand Smoke Exposure: No - Caffeine Use Caffeine Use: Reports: Coffee Caffeine Use Comment: one cup of coffee and one cup of tea - Recreational Drug Use Recreational Drug Use: No - Living Situation & Occupation Living situation: Reports: Single Occupation: Disabled (lives in Apartment, Sister and Uncle live in same building.) ED ROS GENERAL - Review of Systems Review Of Systems: See Below Constitutional: Reports: No Symptoms HEENT: Reports: No Symptoms Respiratory: Reports: No Symptoms GI/Abdominal: Reports: Abdominal Pain, Decreased Appetite. Denies: Black Stool, Bloody Stool, Constipation, Diarrhea, Hematemesis, Hematochezia, Nausea, Vomiting : Reports: No Symptoms Musculoskeletal: Reports: No Symptoms Skin: Reports: No Symptoms ED EXAM, GI/ABD - Physical Exam Exam: See Below Exam Limited By: No Limitations General Appearance: Alert, WD/WN, No Apparent Distress Eyes: Bilateral: Normal Appearance Ears: Normal External Exam, Normal Canal, Hearing Grossly Normal Nose: Normal Inspection, No Blood Throat/Mouth: Normal Inspection, Normal Lips, Normal Oropharynx, Normal Voice, No Airway Compromise Head: Atraumatic, Normocephalic Neck: Normal Inspection Respiratory/Chest: No Respiratory Distress, Lungs Clear, Normal Breath Sounds, No Accessory Muscle Use Cardiovascular: Regular Rate, Rhythm, No Edema GI/Abdominal Exam: Normal Bowel Sounds, Soft, No Distention, Tender (epigastrium and LUQ). No: Non-Tender, Distended, Guarding, Rigid, Rebound, Abnormal Bowel Sounds Extremities: Normal Inspection Neurological: Alert, Oriented, CN II-XII Intact, Normal Cognition, No Motor/Sensory Deficits Psychiatric: Normal Affect, Normal Mood Skin Exam: Warm, Dry, Intact, Normal Color, No Rash Course - Vital Signs Last Recorded V/S: Last Vital Signs Temp 37.7 C 01/30/21 16:00 Pulse 56 L 01/30/21 16:00 Resp 16 01/30/21 16:00 BP 104/55 L 01/30/21 16:00 Pulse Ox 98 01/30/21 16:00 - Orders/Labs/Meds Labs: Laboratory Tests 01/30/21 01/30/21 01/30/21 Range/Units 16:29 16:29 16:29 WBC 4.0 L (4.5-11.0) K/uL RBC 3.84 (3.30-5.50) M/uL Hgb 12.1 (12.0-15.0) g/dL Hct 36.0 (36.0-48.0) % MCV 94 (80-98) fL MCH 32 H (27-31) pg MCHC 34 (32-36) % Plt Count 76 L (150-400) K/uL Sodium 147 (140-148) mmol/L Potassium 3.7 (3.6-5.2) mmol/L Chloride 113 H (100-108) mmol/L Carbon Dioxide 23 (21-32) mmol/L Anion Gap 14.7 H (5.0-14.0) mmol/L BUN 10 (7-18) mg/dL Creatinine 0.9 (0.6-1.0) mg/dL Est Cr Clr Drug Dosing 62.52 mL/min Estimated GFR (MDRD) > 60 (>60) Glucose 93 (74-106) mg/dL Calcium 9.2 (8.5-10.1) mg/dL Lipase 47 L (73-393) U/L Meds: Medications Discontinued Medications Generic Name Dose Route Start Last Admin Trade Name Juan PRN Reason Stop Dose Admin Al Hydroxide/Mg Hydroxide 15 0 ml 01/30/21 16:17 01/30/21 16:21 ml/ Lidocaine HCl 15 ml PO 01/30/21 16:18 15 ml ONETIME ONE Administration Oxycodone HCl 5 mg 01/30/21 16:40 01/30/21 16:45 Oxycodone 5 Mg Tab PO 01/30/21 16:41 5 mg ONETIME ONE Administration - Re-Assessments/Exams Free Text/Narrative Re-Assessment/Exam: 01/30/21 17:06 No significant change in her pain with the GI cocktail. Free Text/Narrative Re-Assessment/Exam: 01/30/21 17:15 Got relief with the extra 5 mg of oxycodone. Departure - Departure Time of Disposition: 17:15 Disposition: Home, Self-Care 01 Condition: Fair Clinical Impression: Splenomegaly, End stage liver disease - Discharge Information *PRESCRIPTION DRUG MONITORING PROGRAM REVIEWED*: No *COPY OF PRESCRIPTION DRUG MONITORING REPORT IN PATIENT NOMAN: No Referrals: Zelda Rodriguez DO [Primary Care Provider] - Forms: ED Department Discharge Additional Instructions: Increase your oxycodone to 15 mg every 4 hrs if needed. F/U with Dr. Rodriguez as sc heduled to discuss the best option for managing your spleen problem. Sepsis Event Note (ED) - Evaluation Sepsis Screening Result: No Definite Risk - Focused Exam Vital Signs: Vital Signs Temp Pulse Resp BP Pulse Ox 01/30/21 16:00 37.7 C 56 L 16 104/55 L 98 01/30/21 15:57 37.7 C 56 L 16 104/55 L 98
[2021-01-30] MEDS ORDERED: oxyCODONE 5 MG Tab PO ONE (16:40)
== END 2021-01-30 17:31 | disposition home or self-care (01) ==
LOC: JP.ED 15:50
DX: K76.9 Liver disease, unspecified (principal); R16.1 Splenomegaly, not elsewhere classified; I25.10 Atherosclerotic heart disease of native coronary artery without angina pectoris; I25.2 Old myocardial infarction; I10 Essential (primary) hypertension; J45.909 Unspecified asthma, uncomplicated; K21.9 Gastro-esophageal reflux disease without esophagitis; Z72.0 Tobacco use; Z91.013 Allergy to seafood; Z88.5 Allergy status to narcotic agent; Z91.048 Other nonmedicinal substance allergy status; Z88.8 Allergy status to other drugs, medicaments and biological substances; Z91.09 Other allergy status, other than to drugs and biological substances
CPT/HCPCS: 36415; 80048; 83690; 85027; 99283; 99284; A9270

== ENCOUNTER 2021-03-15 17:41 | Emergency (ER) | payer MEDICAID ==
[2021-03-15] MEDS ORDERED: Sodium Chloride 0.9% 10 ML Syringe FLUSH PRN (18:35)
--- NOTE | 2021-03-15 18:41 | EDM.PDOC ---
ED HPI GENERAL MEDICAL PROBLEM - General Chief Complaint: Syncope Stated Complaint: no energy, weak, fatigued Time Seen by Provider: 03/15/21 18:30 Source of Information: Reports: Patient, Old Records, RN Notes Reviewed History Limitations: Reports: No Limitations - History of Present Illness INITIAL COMMENTS - FREE TEXT/NARRATIVE: 46-year-old female presents emergency department with a complaint of syncope or near passing out, she states been going on for 2 days it only happens when she stands up. She does admit she has been eating and drinking as well as she should because she recently had a procedure to dilate her esophagus and it still hurts. She has not fallen and hurt herself she describes the event as standing up her eyelids become very heavy and then she feels like she is in a pass out when she has acid. No chest pain no nausea vomiting, No shortness of breath no new medications Abdomen Pain Score (Numeric/FACES): 8 - Related Data Allergies Allergy/AdvReac Type Severity Reaction Status Date / Time Fish Containing Products Allergy Severe Airway Verified 03/15/21 18:09 Tightness ziprasidone [From Geodon] Allergy Severe Airway Verified 03/15/21 18:09 Tightness cefazolin Allergy Cannot Verified 03/15/21 18:09 Remember shellfish derived Allergy Swelling Verified 03/15/21 18:09 tree nut Allergy Hives Verified 03/15/21 18:09 lamotrigine [From Lamictal] AdvReac Leg Cramps Verified 03/15/21 18:09 msg Allergy Hives Uncoded 03/15/21 18:09 Home Meds: Home Meds Cyanocobalamin (Vitamin B-12) [B-12] 250 mcg PO DAILY 07/29/17 [History] Gabapentin [Neurontin] 200 mg PO BID 07/29/17 [History] Lactulose 15 ml PO QID 07/29/17 [History] levETIRAcetam [Keppra] 500 mg PO BID 07/29/17 [History] Omeprazole 40 mg PO BID 10/19/17 [History] Cholecalciferol (Vitamin D3) [Vitamin D3] 1 tab PO DAILY 09/16/19 [History] Folic Acid 1 mg PO DAILY 09/16/19 [History] Albuterol Sulfate [Proventil Hfa] 6.7 gm IH Q4H 09/29/19 [History] Albuterol [Proventil Neb Soln] 2.5 mg INH Q4H PRN 09/29/19 [History] Ferrous Gluconate 324 mg PO DAILY 09/29/19 [History] Nitroglycerin [Nitrostat] 0.4 mg SL ASDIRECTED PRN 09/29/19 [History] Rifaximin [Xifaxan] 550 mg PO BID 09/29/19 [History] Thiamine [Vitamin B-1] 1 tab PO DAILY 09/29/19 [History] oxyCODONE 10 mg PO Q4H PRN 09/29/19 [History] Meclizine [Antivert] 12.5 mg PO TID 11/28/19 [History] Topiramate 100 mg PO BID 07/22/20 [History] Eszopiclone [Lunesta] 1 mg PO BEDTIME 11/23/20 [History] ondansetron HCL [Zofran] 4 mg PO Q8HR PRN 11/23/20 [History] Vortioxetine Hydrobromide [Brintellix] 10 mg PO DAILY 12/06/20 [History] Past Medical History HEENT History: Reports: Hard of Hearing, Impaired Vision Cardiovascular History: Reports: CAD, [place], Other (See Below) Other Cardiovascular History: portal hypertension. [place] was 2002 Respiratory History: Reports: Asthma Gastrointestinal History: Reports: Cirrhosis, GERD, Other (See Below) Other Gastrointestinal History: ascites, liver disease, cholecystitis, hepatic encephalopathy, stent placed in liver, voices that she is in last stages of liver failure. 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 History: Reports: , Spontaneous , Other (See Below) Other JAMB CUTTER History: Irregular [place] Musculoskeletal History: Reports: Back Pain, Chronic, Fracture, Other (See Below) Other Musculoskeletal History: collar bone, Neurological History: Reports: Brain Injury, CVA, Head Trauma, Seizure, Vertigo, Other (See Below) Other Neuro History: TBI ICH Skull defect Psychiatric History: Reports: Addiction, Anxiety, Depression, Psych Hospitalization(s), Suicide Attempt Hematologic History: Reports: Blood Transfusion(s), Iron Deficiency, Other (See Below) Other Hematologic History: Hypokelemia, hypomagnesemia, hyponatremia Oncologic (Cancer) History: Reports: Cervix - Infectious Disease History Infectious Disease History: Reports: Chicken Pox - Past Surgical History Head Surgeries/Procedures: Reports: Craniotomy HEENT Surgical History: Reports: Adenoidectomy, Tonsillectomy Cardiovascular Surgical History: Reports: Coronary Artery Bypass Other Cardiovascular Surgeries/Procedures: cabg x 1 Respiratory Surgical History: Reports: None GI Surgical History: Reports: Appendectomy, Cholecystectomy, EGD, Other (See Below) Other GI Surgeries/Procedures: esophagus stretched at [facility] few days ago. Female Surgical History: Reports: Cystectomy, Other (See Below) Other Female Surgeries/Procedures: removal of abscess from left breast Neurological Surgical History: Reports: None Musculoskeletal Surgical History: Reports: Carpal Tunnel Oncologic Surgical History: Reports: None Dermatological Surgical History: Reports: None Social & Family History - Family History Family Medical History: No Pertinent Family History - Tobacco Use Tobacco Use Status *Q: Current Every Day Tobacco User Years of Tobacco use: 40 Packs/Tins Daily: 0.2 Used Tobacco, but Quit: No Second Hand Smoke Exposure: Yes - Caffeine Use Caffeine Use: Reports: Coffee Caffeine Use Comment: one cup of coffee and one cup of tea - Alcohol Use Days Per Week of Alcohol Use: 0 - Recreational Drug Use Recreational Drug Use: No - Living Situation & Occupation Living situation: Reports: Single Occupation: Disabled (lives in Apartment, Sister and Uncle live in same building.) ED ROS GENERAL - Review of Systems Review Of Systems: See Below Constitutional: Reports: No Symptoms HEENT: Reports: No Symptoms Respiratory: Reports: No Symptoms Cardiovascular: Reports: Lightheadedness GI/Abdominal: Reports: No Symptoms : Reports: No Symptoms ED EXAM, DIZZINESS - Physical Exam Exam: See Below Exam Limited By: No Limitations General Appearance: Alert, WD/WN, No Apparent Distress Head Exam: Atraumatic, Normocephalic Vertigo: short duration. No: worsens with head to L, worsens with head to R, reproducible (intermitant) Neck: Normal Inspection, Supple, Non-Tender, Full Range of Motion Respiratory/Chest: No Respiratory Distress, Lungs Clear, Normal Breath Sounds, No Accessory Muscle Use, Chest Non-Tender Cardiovascular: Regular Rate, Rhythm, No Murmur GI/Abdominal: Soft, Non-Tender #1 Interpretation EKG Date: 03/15/21 Rhythm: NSR [place]: Normal P-Wave: Present QRS: Normal ST-T: Normal QT: Normal Comparison: No Change Course - Vital Signs Last Recorded V/S: Last Vital Signs Temp 98.0 F 03/15/21 18:25 Pulse 62 03/15/21 18:25 Resp 16 03/15/21 18:25 BP 116/70 03/15/21 18:25 Pulse Ox 95 03/15/21 18:25 Orthostatic Blood Pressure [ 119/75 Standing] Orthostatic Blood Pressure [ 127/69 Sitting] Orthostatic Blood Pressure [ 117/63 Supine] - Orders/Labs/Meds Orders: Active Orders 24 hr Category Date Time Status Cardiac Monitoring [RC] .As Directed Care 03/15/21 18:36 Active EKG Documentation Completion [RC] ASDIRECTED Care 03/15/21 18:36 Active Peripheral IV Care [RC] . DIRECTED Care 03/15/21 18:36 Active LEVETIRACETAM (KEPPRA), S Stat Lab 03/15/21 18:55 Received Lactated Ringers [Ringers, Lactated] 1,000 ml Med 03/15/21 18:45 Active IV ASDIRECTED Sodium Chloride 0.9% [Saline Flush] Med 03/15/21 18:35 Active 10 ml FLUSH ASDIRECTED PRN Peripheral IV Insertion Adult [OM.PC] Stat Oth 03/15/21 18:35 Ordered EKG 12 Lead [EK] Stat Ther 03/15/21 18:36 Ordered Medication Orders Lactated Ringer's (Ringers, Lactated) 1,000 mls @ 999 mls/hr IV ASDIRECTED JOSE Last Admin: 03/15/21 18:59 Dose: 999 mls/hr Documented by: EMY Sodium Chloride (Sodium Chloride 0.9% 10 Ml Syringe) 10 ml FLUSH ASDIRECTED PRN PRN Reason: Keep Vein Open Last Admin: 03/15/21 18:58 Dose: 10 ml Documented by: EMY Labs: Laboratory Tests 03/15/21 03/15/21 03/15/21 Range/Units 18:55 18:55 18:55 WBC 5.0 (4.5-11.0) K/uL RBC 3.91 (3.30-5.50) M/uL Hgb 12.4 (12.0-15.0) g/dL Hct 36.5 (36.0-48.0) % MCV 93 (80-98) fL MCH 32 H (27-31) pg MCHC 34 (32-36) % Plt Count 85 L (150-400) K/uL Neut % (Auto) 34.0 L (36-66) % Lymph % (Auto) 52.5 H (24-44) % Bureau % (Auto) 10.3 H (2-6) % Eos % (Auto) 2.8 (2-4) % Baso % (Auto) 0.4 (0-1) % Sodium 144 (140-148) mmol/L Potassium 3.7 (3.6-5.2) mmol/L Chloride 109 H (100-108) mmol/L Carbon Dioxide 26 (21-32) mmol/L Anion Gap 12.7 (5.0-14.0) mmol/L BUN 11 (7-18) mg/dL Creatinine 1.0 (0.6-1.0) mg/dL Est Cr Clr Drug Dosing 55.66 mL/min Estimated GFR (MDRD) 59 L (>60) Glucose 87 (74-106) mg/dL Lactic Acid 1.0 (0.4-2.0) mmol/L Calcium 8.8 (8.5-10.1) mg/dL Total Bilirubin 0.5 (0.2-1.0) mg/dL AST 22 (15-37) U/L ALT 22 (12-78) U/L Alkaline Phosphatase 141 H (46-116) U/L Ammonia (11-32) umol/L Troponin I < 0.017 (0.000-0.056) ng/mL Total Protein 6.0 L (6.4-8.2) g/dL Albumin 3.1 L (3.4-5.0) g/dL Globulin 2.9 (2.3-3.5) g/dL Albumin/Globulin Ratio 1.1 L (1.2-2.2) Urine Opiates Screen (NEGATIVE) Ur Oxycodone Screen (NEGATIVE) Urine Methadone Screen (NEGATIVE) Ur Propoxyphene Screen (NEGATIVE) Ur Barbiturates Screen (NEGATIVE) Ur Tricyclics Screen (NEGATIVE) Ur Phencyclidine Scrn (NEGATIVE) Ur Amphetamine Screen (NEGATIVE) U Methamphetamines Scrn (NEGATIVE) Urine MDMA Screen (NEGATIVE) U Benzodiazepines Scrn (NEGATIVE) U Cocaine Metab Screen (NEGATIVE) U Marijuana (THC) Screen (NEGATIVE) Ethyl Alcohol mg/dL 03/15/21 03/15/21 03/15/21 Range/Units 18:55 18:55 19:49 WBC (4.5-11.0) K/uL RBC (3.30-5.50) M/uL Hgb (12.0-15.0) g/dL Hct (36.0-48.0) % MCV (80-98) fL MCH (27-31) pg MCHC (32-36) % Plt Count (150-400) K/uL Neut % (Auto) (36-66) % Lymph % (Auto) (24-44) % Bureau % (Auto) (2-6) % Eos % (Auto) (2-4) % Baso % (Auto) (0-1) % Sodium (140-148) mmol/L Potassium (3.6-5.2) mmol/L Chloride (100-108) mmol/L Carbon Dioxide (21-32) mmol/L Anion Gap (5.0-14.0) mmol/L BUN (7-18) mg/dL Creatinine (0.6-1.0) mg/dL Est Cr Clr Drug Dosing mL/min Estimated GFR (MDRD) (>60) Glucose (74-106) mg/dL Lactic Acid (0.4-2.0) mmol/L Calcium (8.5-10.1) mg/dL Total Bilirubin (0.2-1.0) mg/dL AST (15-37) U/L ALT (12-78) U/L Alkaline Phosphatase (46-116) U/L Ammonia 45 H (11-32) umol/L Troponin I (0.000-0.056) ng/mL Total Protein (6.4-8.2) g/dL Albumin (3.4-5.0) g/dL Globulin (2.3-3.5) g/dL Albumin/Globulin Ratio (1.2-2.2) Urine Opiates Screen Negative (NEGATIVE) Ur Oxycodone Screen Presumptive positive H (NEGATIVE) Urine Methadone Screen Negative (NEGATIVE) Ur Propoxyphene Screen Negative (NEGATIVE) Ur Barbiturates Screen Negative (NEGATIVE) Ur Tricyclics Screen Negative (NEGATIVE) Ur Phencyclidine Scrn Negative (NEGATIVE) Ur Amphetamine Screen Negative (NEGATIVE) U Methamphetamines Scrn Negative (NEGATIVE) Urine MDMA Screen Negative (NEGATIVE) U Benzodiazepines Scrn Negative (NEGATIVE) U Cocaine Metab Screen Negative (NEGATIVE) U Marijuana (THC) Screen Negative (NEGATIVE) Ethyl Alcohol < 3 mg/dL Meds: Medications Generic Name Dose Route Start Last Admin Trade Name Freq PRN Reason Stop Dose Admin Lactated Ringer's 1,000 mls @ 999 mls/hr 03/15/21 18:45 03/15/21 18:59 Ringers, Lactated IV 999 mls/hr ASDIRECTED JOSE Administration Sodium Chloride 10 ml 03/15/21 18:35 03/15/21 18:58 Sodium Chloride 0.9% 10 Ml Syringe FLUSH 10 ml ASDIRECTED PRN Administration Keep Vein Open Departure - Departure Time of Disposition: 20:39 Disposition: Home, Self-Care 01 Condition: Poor Clinical Impression: Syncope Qualifiers: Syncope type: unspecified Qualified Code(s): R55 - Syncope and collapse - Discharge Information Instructions: Near-Syncope, [id number] Referrals: Zelda Rodriguez DO [Primary Care Provider] - Forms: ED Department Discharge Additional Instructions: Continue with regular medications, please followup with your primary care provider in 3-5 days if not better, please call return to the emergency departme nt with worsening of symptoms. Sepsis Event Note (ED) - Evaluation Sepsis Screening Result: No Definite Risk - Focused Exam Vital Signs: Vital Signs Temp Pulse Resp BP Pulse Ox 03/15/21 18:25 98.0 F 62 16 116/70 95 03/15/21 18:04 98.0 F 62 16 116/70 95 - My Orders Last 24 Hours: My Active Orders 03/15/21 18:35 Sodium Chloride 0.9% [Saline Flush] 10 ml FLUSH ASDIRECTED PRN Peripheral IV Insertion Adult [OM.PC] Stat 03/15/21 18:36 Cardiac Monitoring [RC] .As Directed EKG Documentation Completion [RC] ASDIRECTED Peripheral IV Care [RC] . DIRECTED EKG 12 Lead [EK] Stat 03/15/21 18:45 Lactated Ringers [Ringers, Lactated] 1,000 ml IV ASDIRECTED 03/15/21 18:55 LEVETIRACETAM (KEPPRA), S Stat - Assessment/Plan Last 24 Hours: My Active Orders 03/15/21 18:35 Sodium Chloride 0.9% [Saline Flush] 10 ml FLUSH ASDIRECTED PRN Peripheral IV Insertion Adult [OM.PC] Stat 03/15/21 18:36 Cardiac Monitoring [RC] .As Directed EKG Documentation Completion [RC] ASDIRECTED Peripheral IV Care [RC] . DIRECTED EKG 12 Lead [EK] Stat 03/15/21 18:45 Lactated Ringers [Ringers, Lactated] 1,000 ml IV ASDIRECTED 03/15/21 18:55 LEVETIRACETAM (KEPPRA), S Stat Plan: Assessment Acuity = acute Site and laterality = near syncope Etiology = unknown Manifestations = none Location of injury = Home Lab values = CBC CMP unremarkable troponin was negative EKG demonstrates sinus rhythm there is no ST elevations or depressions, urine drug screen positive for opiates alcohol was negative Plan I did review lab work EKG results with her plan is to follow-up with her primary she is on several medications that have the potential for dizziness as a side effect Keppra level is pending This note was dictated using [employer] voice recognition software please call with any questions on syntax or grammar.
[2021-03-15] MEDS ORDERED: Lactated Ringers 1,000 ML IV SCH (18:45)
== END 2021-03-15 20:55 | disposition home or self-care (01) ==
LOC: JP.ED 17:41
DX: R55 Syncope and collapse (principal); I10 Essential (primary) hypertension; I25.2 Old myocardial infarction; K21.9 Gastro-esophageal reflux disease without esophagitis; I25.10 Atherosclerotic heart disease of native coronary artery without angina pectoris; Z79.899 Other long term (current) drug therapy; Z91.013 Allergy to seafood; Z91.09 Other allergy status, other than to drugs and biological substances; Z88.5 Allergy status to narcotic agent; Z95.1 Presence of aortocoronary bypass graft; Z72.0 Tobacco use
CPT/HCPCS: 36415; 80053; 80177; 80305; 80307; 82140; 83605; 84484; 85025; 93005; 93010; 99283; 99284; J7120

== ENCOUNTER 2021-03-29 13:53 | Emergency (ER) | payer MEDICAID ==
[2021-03-29] MEDS ORDERED: fentaNYL 100 MCG/2 ML SDV IM ONE (14:35)
--- NOTE | 2021-03-29 14:37 | EDM.PDOC ---
ED HPI GENERAL MEDICAL PROBLEM - General Chief Complaint: Lower Extremity Injury/Pain Stated Complaint: POSSIBLE BROKEN TOES ON RIGHT FOOT Time Seen by Provider: 03/29/21 14:32 Source of Information: Reports: Patient, RN Notes Reviewed History Limitations: Reports: No Limitations - History of Present Illness INITIAL COMMENTS - FREE TEXT/NARRATIVE: 46-year-old female presents emergency department day complaint of right foot pain, she accidentally dropped a gallon jug of pickles and a glass jar onto her foot initially had some bleeding is controlled by the time she presents e mergency department, she is complaining of pain in the foot difficult for her to ambulate. - Related Data Allergies Allergy/AdvReac Type Severity Reaction Status Date / Time Fish Containing Products Allergy Severe Airway Verified 03/29/21 14:55 Tightness ziprasidone [From Geodon] Allergy Severe Airway Verified 03/29/21 14:55 Tightness cefazolin Allergy Cannot Verified 03/29/21 14:55 Remember shellfish derived Allergy Swelling Verified 03/29/21 14:55 tree nut Allergy Hives Verified 03/29/21 14:55 lamotrigine [From Lamictal] AdvReac Leg Cramps Verified 03/29/21 14:55 msg Allergy Hives Uncoded 03/29/21 14:55 Home Meds: Home Meds Cyanocobalamin (Vitamin B-12) [B-12] 250 mcg PO DAILY 07/29/17 [History] Gabapentin [Neurontin] 200 mg PO BID 07/29/17 [History] Lactulose 15 ml PO QID 07/29/17 [History] levETIRAcetam [Keppra] 500 mg PO BID 07/29/17 [History] Omeprazole 40 mg PO BID 10/19/17 [History] Cholecalciferol (Vitamin D3) [Vitamin D3] 1 tab PO DAILY 09/16/19 [History] Folic Acid 1 mg PO DAILY 09/16/19 [History] Albuterol Sulfate [Proventil Hfa] 6.7 gm IH Q4H 09/29/19 [History] Albuterol [Proventil Neb Soln] 2.5 mg INH Q4H PRN 09/29/19 [History] Ferrous Gluconate 324 mg PO DAILY 09/29/19 [History] Nitroglycerin [Nitrostat] 0.4 mg SL ASDIRECTED PRN 09/29/19 [History] Rifaximin [Xifaxan] 550 mg PO BID 09/29/19 [History] Thiamine [Vitamin B-1] 1 tab PO DAILY 09/29/19 [History] oxyCODONE 10 mg PO Q4H PRN 09/29/19 [History] Meclizine [Antivert] 12.5 mg PO TID 11/28/19 [History] Topiramate 100 mg PO BID 07/22/20 [History] Eszopiclone [Lunesta] 1 mg PO BEDTIME 11/23/20 [History] ondansetron HCL [Zofran] 4 mg PO Q8HR PRN 11/23/20 [History] Vortioxetine Hydrobromide [Brintellix] 10 mg PO DAILY 12/06/20 [History] Past Medical History HEENT History: Reports: Hard of Hearing, Impaired Vision Cardiovascular History: Reports: CAD, [place], Other (See Below) Other Cardiovascular History: portal hypertension. [place] was 2002 Respiratory History: Reports: Asthma Gastrointestinal History: Reports: Cirrhosis, GERD, Other (See Below) Other Gastrointestinal History: ascites, liver disease, cholecystitis, hepatic encephalopathy, stent placed in liver, voices that she is in last stages of liver failure. 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 History: Reports: , Spontaneous , Other (See Below) Other SALESPERSON B[employer]IAL PLOTS History: Irregular [place] Musculoskeletal History: Reports: Back Pain, Chronic, Fracture, Other (See Below) Other Musculoskeletal History: collar bone, Neurological History: Reports: Brain Injury, CVA, Head Trauma, Seizure, Vertigo, Other (See Below) Other Neuro History: TBI ICH Skull defect Psychiatric History: Reports: Addiction, Anxiety, Depression, Psych Hospitalization(s), Suicide Attempt Hematologic History: Reports: Blood Transfusion(s), Iron Deficiency, Other (See Below) Other Hematologic History: Hypokelemia, hypomagnesemia, hyponatremia Oncologic (Cancer) History: Reports: Cervix - Infectious Disease History Infectious Disease History: Reports: Chicken Pox - Past Surgical History GI Surgical History: Reports: Appendectomy, Cholecystectomy, EGD, Other (See Below) Other GI Surgeries/Procedures: esophagus stretched at [facility] few days ago. Social & Family History - Family History Family Medical History: No Pertinent Family History - Caffeine Use Caffeine Use: Reports: Coffee Caffeine Use Comment: one cup of coffee and one cup of tea - Living Situation & Occupation Living situation: Reports: Single Occupation: Disabled (lives in Apartment, Sister and Uncle live in same building.) Review of Systems - Review of Systems Review Of Systems: See Below Constitutional: Reports: No Symptoms Musculoskeletal: Reports: Foot Pain Skin: Reports: Wound ED EXAM, GENERAL - Physical Exam Exam: See Below Free Text/Narrative:: Examination of the foot I do appreciate a superficial puncture wound middle foot right side, she can move all her digits however the exam is limited by pain does not tolerate any palpation at all for range of motion ankle, pedal pulses +2 Exam Limited By: No Limitations Course - Vital Signs Last Recorded V/S: Last Vital Signs Temp 98.2 F 03/29/21 14:55 Pulse 65 03/29/21 14:55 Resp 18 03/29/21 14:55 BP 140/55 L 03/29/21 14:55 Pulse Ox 99 03/29/21 14:55 - Orders/Labs/Meds Meds: Medications Discontinued Medications Generic Name Dose Route Start Last Admin Trade Name Juan PRN Reason Stop Dose Admin Fentanyl 50 mcg 03/29/21 14:35 03/29/21 15:17 Fentanyl 100 Mcg/2 Ml Sdv IM 03/29/21 14:36 50 mcg ONETIME ONE Administration Departure - Departure Time of Disposition: 15:22 Disposition: Home, Self-Care 01 Condition: Fair Clinical Impression: Contusion of right foot Qualifiers: Encounter type: initial encounter Qualified Code(s): S90.31XA - Contusion of right foot, initial encounter - Discharge Information Instructions: Foot Contusion, [id number] Referrals: Zelda Rodriguez DO [Primary Care Provider] - Forms: ED Department Discharge Additional Instructions: Use Motrin, Aleve naproxen some type of nonsteroidal anti-inflammatory for pain control, please followup with your primary care provider in 3-5 days if not better, please call return to the emergency department with worsening of symptoms. Sepsis Event Note (ED) - Focused Exam Vital Signs: Vital Signs Temp Pulse Resp BP Pulse Ox 03/29/21 14:55 98.2 F 65 18 140/55 L 99 03/29/21 14:07 98.2 F 65 18 140/55 L 99 - Assessment/Plan Plan: Assessment Acuity = acute Site and laterality = bone contusion right foot Etiology = trauma Manifestations = pain Location of injury = Home Lab values = x-ray reveals no fracture Plan She had good relief with fentanyl provided in the emergency department today plan is to use NSAIDs at home follow-up primary care 3 to 5 days if not better This note was dictated using [employer] voice recognition software please call with any questions on syntax or grammar.
--- NOTE | 2021-03-29 15:06 | CR ---
FOOT RIGHT 3 views CLINICAL HISTORY:Trauma, pain FINDINGS:No fracture or dislocation identified. There is some subcortical sclerosis at the talonavicular joint and navicular cuneiform. Impression: No fracture There is some degenerative changes in the tarsal junctions
== END 2021-03-29 15:38 | disposition home or self-care (01) ==
LOC: JP.ED 13:53
DX: S90.31XA Contusion of right foot, initial encounter (principal); I25.10 Atherosclerotic heart disease of native coronary artery without angina pectoris; I25.2 Old myocardial infarction; J45.909 Unspecified asthma, uncomplicated; K21.9 Gastro-esophageal reflux disease without esophagitis; R56.9 Unspecified convulsions; Z91.018 Allergy to other foods; Z88.8 Allergy status to other drugs, medicaments and biological substances; Z88.1 Allergy status to other antibiotic agents; Z91.013 Allergy to seafood; Z86.73 Personal history of transient ischemic attack (TIA), and cerebral infarction without residual deficits; W20.8XXA Other cause of strike by thrown, projected or falling object, initial encounter
CPT/HCPCS: 73630; 96372; 99283; J3010

== ENCOUNTER 2021-04-30 11:29 | Emergency (ER) | payer MEDICAID ==
[2021-04-30] MEDS ORDERED: Ondansetron 4 MG Tab.DIS PO ONE (12:13)
--- NOTE | 2021-04-30 12:26 | EDM.PDOC ---
ED HPI GENERAL MEDICAL PROBLEM - General Chief Complaint: Genitourinary Problem Stated Complaint: POSSIBLE UTI Time Seen by Provider: 04/30/21 12:00 Source of Information: Reports: Patient History Limitations: Reports: No Limitations - History of Present Illness INITIAL COMMENTS - FREE TEXT/NARRATIVE: 46-year-old female with suspected UTI over the past 48 to 72 hours, lower pelvic pressure, dysuria, nausea and vomiting. Denies fever or back pain. Onset: Gradual Duration: Day(s): (3 days) Location: Reports: Abdomen Associated Symptoms: Reports: Malaise, Weakness. Denies: Confusion, Chest Pain - Related Data Allergies Allergy/AdvReac Type Severity Reaction Status Date / Time Fish Containing Products Allergy Severe Airway Verified 04/30/21 11:54 Tightness ziprasidone [From Geodon] Allergy Severe Airway Verified 04/30/21 11:54 Tightness cefazolin Allergy Cannot Verified 04/30/21 11:54 Remember shellfish derived Allergy Swelling Verified 04/30/21 11:54 tree nut Allergy Hives Verified 04/30/21 11:54 lamotrigine [From Lamictal] AdvReac Leg Cramps Verified 04/30/21 11:54 msg Allergy Hives Uncoded 04/30/21 11:54 Home Meds: Home Meds Cyanocobalamin (Vitamin B-12) [B-12] 250 mcg PO DAILY 07/29/17 [History] Gabapentin [Neurontin] 200 mg PO BID 07/29/17 [History] Lactulose 15 ml PO QID 07/29/17 [History] levETIRAcetam [Keppra] 500 mg PO BID 07/29/17 [History] Omeprazole 40 mg PO BID 10/19/17 [History] Cholecalciferol (Vitamin D3) [Vitamin D3] 1 tab PO DAILY 09/16/19 [History] Folic Acid 1 mg PO DAILY 09/16/19 [History] Albuterol Sulfate [Proventil Hfa] 6.7 gm IH Q4H 09/29/19 [History] Albuterol [Proventil Neb Soln] 2.5 mg INH Q4H PRN 09/29/19 [History] Ferrous Gluconate 324 mg PO DAILY 09/29/19 [History] Nitroglycerin [Nitrostat] 0.4 mg SL ASDIRECTED PRN 09/29/19 [History] Rifaximin [Xifaxan] 550 mg PO BID 09/29/19 [History] Thiamine [Vitamin B-1] 1 tab PO DAILY 09/29/19 [History] oxyCODONE 10 mg PO Q4H PRN 09/29/19 [History] Meclizine [Antivert] 12.5 mg PO TID 11/28/19 [History] Topiramate 100 mg PO BID 07/22/20 [History] Eszopiclone [Lunesta] 1 mg PO BEDTIME 11/23/20 [History] ondansetron HCL [Zofran] 4 mg PO Q8HR PRN 11/23/20 [History] Vortioxetine Hydrobromide [Brintellix] 10 mg PO DAILY 12/06/20 [History] Past Medical History HEENT History: Reports: Hard of Hearing, Impaired Vision Cardiovascular History: Reports: CAD, [place], Other (See Below) Other Cardiovascular History: portal hypertension. [place] was 2002 Respiratory History: Reports: Asthma Gastrointestinal History: Reports: Cirrhosis, GERD, Other (See Below) Other Gastrointestinal History: ascites, liver disease, cholecystitis, hepatic encephalopathy, stent placed in liver, voices that she is in last stages of liver failure. 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: Irregular [place] Musculoskeletal History: Reports: Back Pain, Chronic, Fracture, Other (See Below) Other Musculoskeletal History: collar bone, Neurological History: Reports: Brain Injury, CVA, Head Trauma, Seizure, Vertigo, Other (See Below) Other Neuro History: TBI ICH Skull defect Psychiatric History: Reports: Addiction, Anxiety, Depression, Psych Hospitalization(s), Suicide Attempt Hematologic History: Reports: Blood Transfusion(s), Iron Deficiency, Other (See Below) Other Hematologic History: Hypokelemia, hypomagnesemia, hyponatremia Oncologic (Cancer) History: Reports: Cervix - Infectious Disease History Infectious Disease History: Reports: Chicken Pox - Past Surgical History Head Surgeries/Procedures: Reports: Craniotomy HEENT Surgical History: Reports: Adenoidectomy, Tonsillectomy Cardiovascular Surgical History: Reports: Coronary Artery Bypass Other Cardiovascular Surgeries/Procedures: cabg x 1 Respiratory Surgical History: Reports: None GI Surgical History: Reports: Appendectomy, Cholecystectomy, EGD, Other (See Below) Other GI Surgeries/Procedures: esophagus stretched at [facility] few days ago. Female Surgical History: Reports: Cystectomy, Other (See Below) Other Female Surgeries/Procedures: removal of abscess from left breast Neurological Surgical History: Reports: None Musculoskeletal Surgical History: Reports: Carpal Tunnel Oncologic Surgical History: Reports: None Dermatological Surgical History: Reports: None Social & Family History - Family History Family Medical History: No Pertinent Family History - Caffeine Use Caffeine Use: Reports: Coffee Caffeine Use Comment: one cup of coffee and one cup of tea - Living Situation & Occupation Living situation: Reports: Single Occupation: Disabled (lives in Apartment, Sister and Uncle live in same building.) ED ROS GENERAL - Review of Systems Review Of Systems: See Below Constitutional: Reports: Malaise. Denies: Fever, Chills Respiratory: Reports: No Symptoms. Denies: Shortness of Breath Cardiovascular: Denies: Chest Pain GI/Abdominal: Reports: Nausea, Vomiting : Reports: Dysuria, Frequency, Urgency Musculoskeletal: Reports: Back Pain (Chronic) Neurological: Reports: Headache (Chronic recurring headaches) Psychiatric: Reports: Depression ED EXAM, RENAL/ - Physical Exam Exam: See Below Exam Limited By: No Limitations General Appearance: Alert, No Apparent Distress (Looks uncomfortable but not distressed) Head: Other (Chronic cranial defect from previous surgery) Neck: Supple, Non-Tender Respiratory/Chest: Lungs Clear Cardiovascular: Regular Rate, Rhythm GI/Abdominal: Tender (Reacts with tenderness to palpation across lower abdomen) Extremities: No: Pedal Edema Neurological: Alert, Oriented Psychiatric: Depressed Mood, Flat Affect Course - Vital Signs Last Recorded V/S: Last Vital Signs Temp 97.8 F 04/30/21 12:15 Pulse 64 04/30/21 12:15 Resp 16 04/30/21 12:15 BP 114/72 04/30/21 12:15 Pulse Ox 97 04/30/21 12:15 - Orders/Labs/Meds Orders: Active Orders 24 hr Category Date Time Status CULTURE URINE [RM] Stat Lab 04/30/21 12:36 Received Labs: Laboratory Tests 04/30/21 Range/Units 12:12 Urine Color Yellow (YELLOW) Urine Appearance Clear (CLEAR) Urine pH 6.0 (5.0-8.0) Ur Specific [place] 1.025 (1.008-1.030) Urine Protein Negative (NEGATIVE) mg/dL Urine Glucose (UA) Negative (NEGATIVE) mg/dL Urine Ketones Negative (NEGATIVE) mg/dL Urine Occult Blood Moderate H (NEGATIVE) Urine Nitrite Negative (NEGATIVE) Urine Bilirubin Negative (NEGATIVE) Urine Urobilinogen 0.2 (0.2-1.0) EU/dL Ur Leukocyte Esterase Negative (NEGATIVE) Urine RBC 10-20 H (0-5) Urine WBC 0-5 (0-5) Ur Epithelial Cells Few Amorphous Sediment Few Urine Bacteria Few Urine Mucus Not seen Meds: Medications Discontinued Medications Generic Name Dose Route Start Last Admin Trade Name Freq PRN Reason Stop Dose Admin Ondansetron HCl 4 mg 04/30/21 12:13 04/30/21 12:18 Ondansetron 4 Mg Tab.Dis PO 04/30/21 12:14 4 mg ONETIME ONE Administration - Re-Assessments/Exams Free Text/Narrative Re-Assessment/Exam: 04/30/21 12:28 Patient was given 4 mg of oral Zofran, a UA was obtained. This returned actually looking fairly good with 5-10 RBCs per high-power field and a few WBCs and bacteria. A culture was initiated. 04/30/21 12:33 UA returned with 5-10 RBCs, few bacteria and WBCs but really not too dramatic. A culture was initiated, I discussed further evaluation with a CT scan to assess for possible kidney stones but they really do not present as such. Patient agreed to try an antibiotic and nausea medication for 48 hours and will return if not improving, at that time we will have the culture report. She was placed on Macrobid 100 mg twice daily and given 5 doses of Zofran. Departure - Departure Time of Disposition: 12:46 Disposition: Home, Self-Care 01 Clinical Impression: Dysuria UTI (urinary tract infection) Qualifiers: Urinary tract infection type: acute cystitis Hematuria presence: with hematuria Qualified Code(s): N30.01 - Acute cystitis with hematuria - Discharge Information Instructions: Dysuria Referrals: Zelda Rodriguez DO [Primary Care Provider] - Forms: ED Department Discharge Care Plan Goals: Continue your current medications, take antibiotic twice daily as prescribed and use Zofran for nausea if needed. Return in 48 to 72 hours if not improving sa tisfactorily, you can return anytime if worsening such as increased pain, fever, or difficulty breathing. Sepsis Event Note (ED) - Evaluation Sepsis Screening Result: No Definite Risk - Focused Exam Vital Signs: Vital Signs Temp Pulse Resp BP Pulse Ox 04/30/21 12:15 97.8 F 64 16 114/72 97 04/30/21 11:56 97.8 F 64 16 114/72 97 - My Orders Last 24 Hours: My Active Orders 04/30/21 12:36 CULTURE URINE [RM] Stat - Assessment/Plan Last 24 Hours: My Active Orders 04/30/21 12:36 CULTURE URINE [RM] Stat
== END 2021-04-30 12:46 | disposition home or self-care (01) ==
LOC: JP.ED 11:29
DX: N30.01 Acute cystitis with hematuria (principal); I25.10 Atherosclerotic heart disease of native coronary artery without angina pectoris; I25.2 Old myocardial infarction; K21.9 Gastro-esophageal reflux disease without esophagitis; Z79.899 Other long term (current) drug therapy; Z86.73 Personal history of transient ischemic attack (TIA), and cerebral infarction without residual deficits; Z91.013 Allergy to seafood; Z91.09 Other allergy status, other than to drugs and biological substances; Z88.8 Allergy status to other drugs, medicaments and biological substances
CPT/HCPCS: 81001; 87086; 87088; 87186; 99284; A9270

== ENCOUNTER 2021-05-09 13:00 | Emergency (ER) | payer MEDICAID ==
[2021-05-09] MEDS ORDERED: Lactated Ringers 1,000 ML IV ONE (13:56)
[2021-05-09] MEDS ORDERED: Midodrine 5 MG Tab PO ONE (13:56)
[2021-05-09] MEDS ORDERED: Phenazopyridine 95 MG Tab PO ONE (14:12)
--- NOTE | 2021-05-09 14:12 | EDM.PDOC ---
ED HPI GENERAL MEDICAL PROBLEM - General Chief Complaint: Cardiovascular Problem Stated Complaint: MEDICAL VIA [facility] Time Seen by Provider: 05/09/21 13:45 Source of Information: Reports: Patient History Limitations: Reports: No Limitations - History of Present Illness INITIAL COMMENTS - FREE TEXT/NARRATIVE: This is a 46-year-old female with an extensive medical history including cirrhosis, TIPS procedure, orthostatic hypotension who presents with concerns of dizziness. She reports that for last few days she has felt dizzy whenever she stands up. She went to see your primary care doctor today and was noted to be having orthostatic symptoms and was therefore referred to the ER. She was seen here approximately 2 days ago for urinary discomfort, diagnosed with a UTI. She just recently picked up her antibiotic and is now on her second day of treatment. She reports that she used to be managed on midodrine, and feels that she needs to be restarted on this. She continues to have urinary discomfort. She notes some pain in her right flank as well. Chest Pain Score (Numeric/FACES): 7 - Related Data Allergies Allergy/AdvReac Type Severity Reaction Status Date / Time Fish Containing Products Allergy Severe Airway Verified 05/09/21 13:08 Tightness ziprasidone [From Geodon] Allergy Severe Airway Verified 05/09/21 13:08 Tightness cefazolin Allergy Cannot Verified 05/09/21 13:08 Remember shellfish derived Allergy Swelling Verified 05/09/21 13:08 tree nut Allergy Hives Verified 05/09/21 13:08 lamotrigine [From Lamictal] AdvReac Leg Cramps Verified 05/09/21 13:08 msg Allergy Hives Uncoded 04/30/21 11:54 Home Meds: Home Meds Cyanocobalamin (Vitamin B-12) [B-12] 250 mcg PO DAILY 07/29/17 [History] Gabapentin [Neurontin] 200 mg PO BID 07/29/17 [History] Lactulose 15 ml PO QID 07/29/17 [History] levETIRAcetam [Keppra] 500 mg PO BID 07/29/17 [History] Omeprazole 40 mg PO BID 10/19/17 [History] Cholecalciferol (Vitamin D3) [Vitamin D3] 1 tab PO DAILY 09/16/19 [History] Folic Acid 1 mg PO DAILY 09/16/19 [History] Albuterol Sulfate [Proventil Hfa] 6.7 gm IH Q4H 09/29/19 [History] Albuterol [Proventil Neb Soln] 2.5 mg INH Q4H PRN 09/29/19 [History] Ferrous Gluconate 324 mg PO DAILY 09/29/19 [History] Nitroglycerin [Nitrostat] 0.4 mg SL ASDIRECTED PRN 09/29/19 [History] Rifaximin [Xifaxan] 550 mg PO BID 09/29/19 [History] Thiamine [Vitamin B-1] 1 tab PO DAILY 09/29/19 [History] oxyCODONE 10 mg PO Q4H PRN 09/29/19 [History] Meclizine [Antivert] 12.5 mg PO TID 11/28/19 [History] Topiramate 100 mg PO BID 07/22/20 [History] Eszopiclone [Lunesta] 1 mg PO BEDTIME 11/23/20 [History] ondansetron HCL [Zofran] 4 mg PO Q8HR PRN 11/23/20 [History] Vortioxetine Hydrobromide [Brintellix] 10 mg PO DAILY 12/06/20 [History] Midodrine 5 mg PO TID #30 tab 05/09/21 [Rx] Past Medical History HEENT History: Reports: Hard of Hearing, Impaired Vision Cardiovascular History: Reports: CAD, [place], Other (See Below) Other Cardiovascular History: portal hypertension. [place] was 2002 Respiratory History: Reports: Asthma Gastrointestinal History: Reports: Cirrhosis, GERD, Other (See Below) Other Gastrointestinal History: ascites, liver disease, cholecystitis, hepatic encephalopathy, stent placed in liver, voices that she is in last stages of liver failure. 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 [place] Musculoskeletal History: Reports: Back Pain, Chronic, Fracture, Other (See Below) Other Musculoskeletal History: collar bone, Neurological History: Reports: Brain Injury, CVA, Head Trauma, Seizure, Vertigo, Other (See Below) Other Neuro History: TBI ICH Skull defect Psychiatric History: Reports: Addiction, Anxiety, Depression, Psych Hospitalization(s), Suicide Attempt Hematologic History: Reports: Blood Transfusion(s), Iron Deficiency, Other (See Below) Other Hematologic History: Hypokelemia, hypomagnesemia, hyponatremia Oncologic (Cancer) History: Reports: Cervix Dermatologic History: Reports: None - Infectious Disease History Infectious Disease History: Reports: Chicken Pox - Past Surgical History Head Surgeries/Procedures: Reports: Craniotomy HEENT Surgical History: Reports: Adenoidectomy, Tonsillectomy Cardiovascular Surgical History: Reports: Coronary Artery Bypass Other Cardiovascular Surgeries/Procedures: cabg x 1 Respiratory Surgical History: Reports: None GI Surgical History: Reports: Appendectomy, Cholecystectomy, EGD, Other (See Below) Other GI Surgeries/Procedures: esophagus stretched at [facility] few days ago. Female Surgical History: Reports: Cystectomy, Other (See Below) Other Female Surgeries/Procedures: removal of abscess from left breast Neurological Surgical History: Reports: None Musculoskeletal Surgical History: Reports: Carpal Tunnel Oncologic Surgical History: Reports: None Dermatological Surgical History: Reports: None Social & Family History - Family History Family Medical History: No Pertinent Family History - Tobacco Use Tobacco Use Status *Q: Former Tobacco User Years of Tobacco use: 40 Used Tobacco, but Quit: No - Caffeine Use Caffeine Use: Reports: Coffee, Soda, Tea Caffeine Use Comment: one cup of coffee and one cup of tea - Recreational Drug Use Recreational Drug Use: No - Living Situation & Occupation Living situation: Reports: Single Occupation: Disabled (lives in Apartment, Sister and Uncle live in same building.) ED ROS GENERAL - Review of Systems Review Of Systems: See Below Constitutional: Reports: No Symptoms HEENT: Reports: No Symptoms Respiratory: Reports: No Symptoms Cardiovascular: Reports: Lightheadedness. Denies: Syncope Endocrine: Reports: No Symptoms GI/Abdominal: Reports: No Symptoms : Reports: Dysuria, Flank Pain Musculoskeletal: Reports: No Symptoms Skin: Reports: No Symptoms Neurological: Reports: No Symptoms Psychiatric: Reports: No Symptoms Hematologic/Lymphatic: Reports: No Symptoms Immunologic: Reports: No Symptoms ED EXAM, GENERAL - Physical Exam Exam: See Below Exam Limited By: No Limitations General Appearance: Alert, No Apparent Distress Ears: Normal External Exam Nose: Normal Inspection Throat/Mouth: Normal Inspection Head: Atraumatic, Normocephalic Neck: Normal Inspection Respiratory/Chest: Lungs Clear Cardiovascular: Regular Rate, Rhythm GI/Abdominal: Normal Bowel Sounds, Tender (Suprapubic tenderness noted, remainder of abdominal exam benign) Back Exam: Normal Inspection Neurological: Alert, Oriented Psychiatric: Normal Affect, Normal Mood Skin Exam: Warm, Dry Course - Vital Signs Last Recorded V/S: Last Vital Signs Temp Pulse 41 L 05/09/21 15:06 Resp 15 05/09/21 15:06 BP 131/73 05/09/21 15:06 Pulse Ox 100 05/09/21 15:06 - Orders/Labs/Meds Labs: Laboratory Tests 05/09/21 05/09/21 05/09/21 Range/Units 14:36 14:36 14:36 WBC 4.6 (4.5-11.0) K/uL RBC 3.65 (3.30-5.50) M/uL Hgb 11.7 L (12.0-15.0) g/dL Hct 34.8 L (36.0-48.0) % MCV 95 (80-98) fL MCH 32 H (27-31) pg MCHC 34 (32-36) % Plt Count 79 L (150-400) K/uL Neut % (Auto) 34.8 L (36-66) % Lymph % (Auto) 52.7 H (24-44) % Robertson % (Auto) 9.0 H (2-6) % Eos % (Auto) 3.1 (2-4) % Baso % (Auto) 0.4 (0-1) % Sodium 145 (140-148) mmol/L Potassium 4.5 (3.6-5.2) mmol/L Chloride 112 H (100-108) mmol/L Carbon Dioxide 24 (21-32) mmol/L Anion Gap 13.5 (5.0-14.0) mmol/L BUN 9 (7-18) mg/dL Creatinine 0.8 (0.6-1.0) mg/dL Est Cr Clr Drug Dosing 68.02 mL/min Estimated GFR (MDRD) > 60 (>60) Glucose 74 (74-106) mg/dL Lactic Acid 0.9 (0.4-2.0) mmol/L Calcium 8.3 L (8.5-10.1) mg/dL Meds: Medications Discontinued Medications Generic Name Dose Route Start Last Admin Trade Name Freq PRN Reason Stop Dose Admin Lactated Ringer's 1,000 mls @ 999 mls/hr 05/09/21 13:56 05/09/21 14:03 Ringers, Lactated IV 05/09/21 14:56 999 mls/hr BOLUS ONE Administration Midodrine 5 mg 05/09/21 13:56 05/09/21 14:15 Midodrine 5 Mg Tab PO 05/09/21 13:57 5 mg TIDAC ONE Administration Phenazopyridine HCl 95 mg 05/09/21 14:12 05/09/21 14:17 Phenazopyridine 95 Mg Tab PO 05/09/21 14:13 95 mg ONETIME ONE Administration - Re-Assessments/Exams Free Text/Narrative Re-Assessment/Exam: This is a 46-year-old female with history of liver disease, orthostatic hypotension who presents with concerns of orthostatic symptoms, urinary discomfort, right flank pain. Physical exam is notable for some suprapubic tenderness as well as episodes of hypotension with systolic blood pressures in the 90s. Going back to her multiple recent ED visits this year does look like her blood pressure quite labile, and will range from as low as 80s up to the 140s systolically. Suspect much of this is due to her known liver disease. She does endorse a history of orthostatic symptoms where she is frequently dizzy when standing. Previously was managed on midodrine as noted. Screening labs were obtained and are overall unremarkable. Her lactate is normal. I do not think her blood pressures today are significant departure from her baseline. The patient is looking to restart her midodrine which I think is reasonable, so she was given a dose of this along with a liter of IV fluids. She was able to ambulate around the department with a steady gait and feels well. With her ongoing flank pain and hematuria she had concerns for possible right renal stone as was discussed with her at her visit 2 days ago. For this reason we obtained a repeat CT of the abdomen and pelvis which was reassuring without any ureteral stones. She is only been on antibiotics for less than 2 days, stressed the importance of continuing this. Overall, I think she is safe for discharge as she has now had multiple normal blood pressure readings and is comfortably ambulating around the department. Do not think that her low BPs at this time represent early sepsis or septic shock. Have written a short script to restart her midodrine, referral placed to follow-up with Dr. Rodriguez, stressed importance of completing her course of antibiotics for her urinary tract infection. She was discharged with return precautions. 05/09/21 16:14 Departure - Departure Time of Disposition: 16:15 Disposition: Home, Self-Care 01 Clinical Impression: Orthostatic dizziness Prescriptions: Midodrine 5 mg PO TID #30 tab Instructions: Dizziness Referrals: PCP,None [Primary Care Provider] - Forms: ED Department Discharge Additional Instructions: As discussed, your work-up today was reassuring. Your CT scan looks good. It is important that you finish your course of antibiotics for your urinary infection. We have written you for a short course of your midodrine so you can restart this, but you need to discuss ongoing use with your primary doctor. We have placed a referral to Dr. Correia's clinic for you to follow-up. Thank you for trusting us to care for you today. Sepsis Event Note (ED) - Evaluation Sepsis Screening Result: No Definite Risk - Focused Exam Vital Signs: Vital Signs Pulse Resp BP Pulse Ox 05/09/21 15:06 41 L 15 131/73 100 05/09/21 14:03 51 L 19 100/55 L 96 05/09/21 13:51 50 L 14 108/59 L 100 05/09/21 13:32 50 L 14 98/52 L 99 05/09/21 13:08 56 L 16 96/42 L 98 05/09/21 13:06 56 L 16 96/42 L 98 05/09/21 13:02 56 L 16 96/42 L 96
--- NOTE | 2021-05-09 15:45 | CT ---
Abdomen Pelvis wo Cont CLINICAL HISTORY: Hematuria and right flank pain COMPARISON: 2019. TECHNIQUE: Axial tomographic images are obtained from the dome of the diaphragm to the pubic symphysis without IV contrast enhancement. No oral contrast was used. The dosage reduction and iterative reconstruction techniques employed. FINDINGS: The lung bases are clear. The liver is free of focal mass or biliary dilatation. Patient has undergone previous TIPS procedure. The gallbladder has been removed. The spleen is upper limits of normal size and has increased in size slightly since prior study. The pancreas is free of mass or inflammatory change. The adrenal glands appear normal bilaterally. The kidneys show punctate calcifications in the lower pole bilaterally. There is no hydronephrosis. Both ureters have a normal course and caliber. The bladder is nondistended The aorta has a normal contour. There are a few scattered small lymph nodes in the mesentery and periaortic region similar to prior study. Small intestinal configuration is nonacute. There is gas and feces are the colon. The appendix is not definitively identified. There is no evidence of appendicitis. IMPRESSION: There are a few punctate nonobstructing calcifications in the lower pole of both kidneys Previous TIPS procedure Minimal increase in size of the spleen since the 2019 study. It is upper limits of normal size
== END 2021-05-09 16:39 | disposition home or self-care (01) ==
LOC: JP.ED 13:00
DX: R42 Dizziness and giddiness (principal); I95.1 Orthostatic hypotension; K21.9 Gastro-esophageal reflux disease without esophagitis; I25.10 Atherosclerotic heart disease of native coronary artery without angina pectoris; I10 Essential (primary) hypertension; I25.2 Old myocardial infarction; Z91.013 Allergy to seafood; Z88.8 Allergy status to other drugs, medicaments and biological substances; Z88.1 Allergy status to other antibiotic agents; Z91.018 Allergy to other foods; Z87.891 Personal history of nicotine dependence
CPT/HCPCS: 36415; 74176; 80048; 83605; 85025; 99284; A9270; J7120

== ENCOUNTER 2021-06-16 11:16 | Emergency (ER) | payer MEDICAID ==
[2021-06-16] MEDS ORDERED: Ondansetron 4 MG/2 ML SDV IVPUSH ONE (14:08)
[2021-06-16] MEDS ORDERED: Phenazopyridine 95 MG Tab PO ONE (14:09)
--- NOTE | 2021-06-16 14:15 | EDM.PDOC ---
ED HPI GENERAL MEDICAL PROBLEM - General Chief Complaint: Genitourinary Problem Stated Complaint: UTI ??? Time Seen by Provider: 06/16/21 14:00 Source of Information: Reports: Patient, Old Records, RN History Limitations: Reports: No Limitations - History of Present Illness INITIAL COMMENTS - FREE TEXT/NARRATIVE: 46 yo female was seen in the clinic yesterday and an Rx was called to [facility] for a UTI. That antibiotic was on back order so it was called to a different pharmacy that Cris cannot use. She didn't get through right away to the clinic today to discuss this so came to the ER. She has AZO at home. Does mention some nausea without vomiting. Onset: Gradual Duration: Day(s):, Getting Worse Location: Reports: Pelvis (bladder) Quality: Reports: Pressure Severity: Mild Improves with: Reports: Medication Worsens with: Reports: Other (infection) Context: Reports: Other (See HPI) Associated Symptoms: Reports: Nausea/Vomiting (no vomiting). Denies: Fever/Chills Treatments HAND CLIPPER: Reports: Other (see below) (none) Left Flank Pain Score (Numeric/FACES): 8 - Related Data Allergies Allergy/AdvReac Type Severity Reaction Status Date / Time Fish Containing Products Allergy Severe Airway Verified 06/16/21 12:23 Tightness ziprasidone [From Geodon] Allergy Severe Airway Verified 06/16/21 12:23 Tightness cefazolin Allergy Cannot Verified 06/16/21 12:23 Remember shellfish derived Allergy Swelling Verified 06/16/21 12:23 tree nut Allergy Hives Verified 06/16/21 12:23 lamotrigine [From Lamictal] AdvReac Leg Cramps Verified 06/16/21 12:23 msg Allergy Hives Uncoded 06/16/21 12:23 Home Meds: Home Meds Cyanocobalamin (Vitamin B-12) [B-12] 250 mcg PO DAILY 07/29/17 [History] Gabapentin [Neurontin] 200 mg PO BID 07/29/17 [History] Lactulose 15 ml PO QID 07/29/17 [History] levETIRAcetam [Keppra] 500 mg PO BID 07/29/17 [History] Omeprazole 40 mg PO BID 10/19/17 [History] Cholecalciferol (Vitamin D3) [Vitamin D3] 1 tab PO DAILY 09/16/19 [History] Folic Acid 1 mg PO DAILY 09/16/19 [History] Albuterol Sulfate [Proventil Hfa] 6.7 gm IH Q4H 09/29/19 [History] Albuterol [Proventil Neb Soln] 2.5 mg INH Q4H PRN 09/29/19 [History] Ferrous Gluconate 324 mg PO DAILY 09/29/19 [History] Nitroglycerin [Nitrostat] 0.4 mg SL ASDIRECTED PRN 09/29/19 [History] Rifaximin [Xifaxan] 550 mg PO BID 09/29/19 [History] Thiamine [Vitamin B-1] 1 tab PO DAILY 09/29/19 [History] oxyCODONE 10 mg PO Q4H PRN 09/29/19 [History] Meclizine [Antivert] 12.5 mg PO TID 11/28/19 [History] Topiramate 100 mg PO BID 07/22/20 [History] Eszopiclone [Lunesta] 1 mg PO BEDTIME 11/23/20 [History] ondansetron HCL [Zofran] 4 mg PO Q8HR PRN 11/23/20 [History] Vortioxetine Hydrobromide [Brintellix] 10 mg PO DAILY 12/06/20 [History] Midodrine 5 mg PO TID #30 tab 05/09/21 [Rx] Past Medical History HEENT History: Reports: Hard of Hearing, Impaired Vision Cardiovascular History: Reports: CAD, PA, Other (See Below) Other Cardiovascular History: portal hypertension. PA was 2002 Respiratory History: Reports: Asthma Gastrointestinal History: Reports: Cirrhosis, GERD, Other (See Below) Other Gastrointestinal History: ascites, liver disease, cholecystitis, hepatic encephalopathy, stent placed in liver, voices that she is in last stages of liver failure. Genitourinary History: Reports: Renal Calculus, Other (See Below) Other Genitourinary History: urethral stent placed that extends to kidney RN CLINICAL QUALITY History: Reports: , Spontaneous , Other (See Below) Other RN CLINICAL QUALITY History: Irregular [place] oca Musculoskeletal History: Reports: Back Pain, Chronic, Fracture, Other (See Below) Other Musculoskeletal History: collar bone, Neurological History: Reports: Brain Injury, CVA, Head Trauma, Seizure, Vertigo, Other (See Below) Other Neuro History: TBI ICH Skull defect Psychiatric History: Reports: Addiction, Anxiety, Depression, Psych Hospitalization(s), Suicide Attempt Hematologic History: Reports: Blood Transfusion(s), Iron Deficiency, Other (See Below) Other Hematologic History: Hypokelemia, hypomagnesemia, hyponatremia Oncologic (Cancer) History: Reports: Cervix Dermatologic History: Reports: None - Infectious Disease History Infectious Disease History: Reports: Chicken Pox - Past Surgical History Head Surgeries/Procedures: Reports: Craniotomy HEENT Surgical History: Reports: Adenoidectomy, Tonsillectomy Cardiovascular Surgical History: Reports: Coronary Artery Bypass Other Cardiovascular Surgeries/Procedures: cabg x 1 Respiratory Surgical History: Reports: None GI Surgical History: Reports: Appendectomy, Cholecystectomy, EGD, Other (See Below) Other GI Surgeries/Procedures: esophagus stretched at [facility] few days ago. Female Surgical History: Reports: Cystectomy, Other (See Below) Other Female Surgeries/Procedures: removal of abscess from left breast Neurological Surgical History: Reports: None Musculoskeletal Surgical History: Reports: Carpal Tunnel Oncologic Surgical History: Reports: None Dermatological Surgical History: Reports: None Social & Family History - Family History Family Medical History: No Pertinent Family History - Tobacco Use Tobacco Use Status *Q: Current Every Day Tobacco User Years of Tobacco use: 40 Packs/Tins Daily: 0.5 - Caffeine Use Caffeine Use: Reports: Coffee, Soda, Tea Caffeine Use Comment: one cup of coffee and one cup of tea - Recreational Drug Use Recreational Drug Use: No - Living Situation & Occupation Living situation: Reports: Single Occupation: Disabled (lives in Apartment, Sister and Uncle live in same building.) ED ROS GENERAL - Review of Systems Review Of Systems: See Below Constitutional: Reports: No Symptoms HEENT: Reports: No Symptoms Respiratory: Reports: No Symptoms Cardiovascular: Reports: No Symptoms GI/Abdominal: Reports: Nausea. Denies: Vomiting : Reports: Dysuria Skin: Reports: No Symptoms ED EXAM, RENAL/ - Physical Exam Exam: See Below Exam Limited By: No Limitations General Appearance: Alert, WD/WN, No Apparent Distress Eye Exam: Bilateral Eye: Normal Inspection Ears: Normal External Exam, Normal Canal, Hearing Grossly Normal Nose: Normal Inspection, No Blood Throat/Mouth: Normal Inspection, Normal Lips, Normal Voice, No Airway Compromise Head: Atraumatic Neck: Normal Inspection Respiratory/Chest: No Respiratory Distress, Lungs Clear, Normal Breath Sounds, No Accessory Muscle Use Extremities: Normal Inspection Neurological: Alert, Oriented, CN II-XII Intact, Normal Cognition, No Motor/Sensory Deficits Psychiatric: Normal Affect, Normal Mood Skin Exam: Warm, Dry, Intact, Normal Color, No Rash Course - Vital Signs Last Recorded V/S: Last Vital Signs Temp 36.5 C 06/16/21 12:21 Pulse 58 L 06/16/21 12:21 Resp 20 06/16/21 12:21 BP 119/47 L 06/16/21 12:21 Pulse Ox 98 06/16/21 12:21 - Orders/Labs/Meds Orders: Active Orders 24 hr Category Date Time Status Ondansetron [Zofran] Med 06/16/21 14:08 Once 4 mg IVPUSH ONETIME ONE Phenazopyridine [Urinary Pain Relief] Med 06/16/21 14:09 Once 190 mg PO ONETIME ONE - Re-Assessments/Exams Free Text/Narrative Re-Assessment/Exam: 06/16/21 14:13 We called the clinic for Cris and a new Rx [facility] be [facility] to [facility] Departure - Departure Time of Disposition: 14:13 Disposition: Home, Self-Care 01 Condition: Good Clinical Impression: Cystitis - Discharge Information *PRESCRIPTION DRUG MONITORING PROGRAM REVIEWED*: Not Applicable *COPY OF PRESCRIPTION DRUG MONITORING REPORT IN PATIENT NOMAN: Not Applicable Referrals: Zelda Rodriguez DO [Primary Care Provider] - Additional Instructions: Your new Rx will be called by the [facility] to [facility] for your. Use Zofran as needed for nausea and AZO for bladder pain. F/U with your provider as needed. Sepsis Event Note (ED) - Evaluation Sepsis Screening Result: No Definite Risk - Focused Exam Vital Signs: Vital Signs Temp Pulse Resp BP Pulse Ox 06/16/21 12:21 36.5 C 58 L 20 119/47 L 98 - My Orders Last 24 Hours: My Active Orders 06/16/21 14:08 Ondansetron [Zofran] 4 mg IVPUSH ONETIME ONE 06/16/21 14:09 Phenazopyridine [Urinary Pain Relief] 190 mg PO ONETIME ONE - Assessment/Plan Last 24 Hours: My Active Orders 06/16/21 14:08 Ondansetron [Zofran] 4 mg IVPUSH ONETIME ONE 06/16/21 14:09 Phenazopyridine [Urinary Pain Relief] 190 mg PO ONETIME ONE
[2021-06-16] MEDS ORDERED: Ondansetron 4 MG Tab.DIS PO ONE (14:17)
== END 2021-06-16 14:29 | disposition home or self-care (01) ==
LOC: JP.ED 11:16
DX: N30.90 Cystitis, unspecified without hematuria (principal); I25.10 Atherosclerotic heart disease of native coronary artery without angina pectoris; I25.2 Old myocardial infarction; K21.9 Gastro-esophageal reflux disease without esophagitis; J45.909 Unspecified asthma, uncomplicated; Z72.0 Tobacco use; Z86.73 Personal history of transient ischemic attack (TIA), and cerebral infarction without residual deficits; Z91.013 Allergy to seafood; Z91.09 Other allergy status, other than to drugs and biological substances
CPT/HCPCS: 99283; A9270

== ENCOUNTER 2021-06-24 13:57 | Emergency (ER) | payer MEDICAID ==
[2021-06-24] MEDS ORDERED: Prochlorperazine 10 MG/2 ML SDV IVPUSH ONE (14:40)
[2021-06-24] MEDS ORDERED: Ketorolac 30 MG/ML SDV IVPUSH ONE (14:41)
--- NOTE | 2021-06-24 14:43 | EDM.PDOC ---
<Susana Godinez - Last Filed: 06/24/21 17:45> ED HPI GENERAL MEDICAL PROBLEM - General Chief Complaint: Headache Stated Complaint: MED[facility] Time Seen by Provider: 06/24/21 14:43 Source of Information: Reports: Patient, EMS History Limitations: Reports: No Limitations - History of Present Illness INITIAL COMMENTS - FREE TEXT/NARRATIVE: pt has a history of substance abuse but sttes she is doing much better. She developed a headache today which was very severe. She had had the headache for 1.5 hours prior to arrival. She is concerned that she could be having another stroke. She has had a recwnt Uti and is just finishing her last antibiotic. Onset: Today, Sudden, Other ( headache developed today. ) Duration: Hour(s): Location: Reports: Head Associated Symptoms: Reports: Headaches, Nausea/Vomiting Headache Pain Score (Numeric/FACES): 10 - Related Data Allergies Allergy/AdvReac Type Severity Reaction Status Date / Time Fish Containing Products Allergy Severe Airway Verified 06/24/21 14:04 Tightness ziprasidone [From Geodon] Allergy Severe Airway Verified 06/24/21 14:04 Tightness cefazolin Allergy Cannot Verified 06/24/21 14:04 Remember shellfish derived Allergy Swelling Verified 06/24/21 14:04 tree nut Allergy Hives Verified 06/24/21 14:04 lamotrigine [From Lamictal] AdvReac Leg Cramps Verified 06/24/21 14:04 msg Allergy Hives Uncoded 06/24/21 14:04 Home Meds: Home Meds Cyanocobalamin (Vitamin B-12) [B-12] 250 mcg PO DAILY 07/29/17 [History] Gabapentin [Neurontin] 200 mg PO BID 07/29/17 [History] Lactulose 15 ml PO QID 07/29/17 [History] levETIRAcetam [Keppra] 500 mg PO BID 07/29/17 [History] Omeprazole 40 mg PO BID 10/19/17 [History] Cholecalciferol (Vitamin D3) [Vitamin D3] 1 tab PO DAILY 09/16/19 [History] Folic Acid 1 mg PO DAILY 09/16/19 [History] Albuterol Sulfate [Proventil Hfa] 6.7 gm IH Q4H 09/29/19 [History] Albuterol [Proventil Neb Soln] 2.5 mg INH Q4H PRN 09/29/19 [History] Ferrous Gluconate 324 mg PO DAILY 09/29/19 [History] Nitroglycerin [Nitrostat] 0.4 mg SL ASDIRECTED PRN 09/29/19 [History] Rifaximin [Xifaxan] 550 mg PO BID 09/29/19 [History] Thiamine [Vitamin B-1] 1 tab PO DAILY 09/29/19 [History] oxyCODONE 10 mg PO Q4H PRN 09/29/19 [History] Meclizine [Antivert] 12.5 mg PO TID 11/28/19 [History] Topiramate 100 mg PO BID 07/22/20 [History] Eszopiclone [Lunesta] 1 mg PO BEDTIME 11/23/20 [History] ondansetron HCL [Zofran] 4 mg PO Q8HR PRN 11/23/20 [History] Vortioxetine Hydrobromide [Brintellix] 10 mg PO DAILY 12/06/20 [History] Midodrine 5 mg PO TID #30 tab 05/09/21 [Rx] Past Medical History HEENT History: Reports: Hard of Hearing, Impaired Vision Cardiovascular History: Reports: CAD, CA, Other (See Below) Other Cardiovascular History: portal hypertension. CA was 2002 Respiratory History: Reports: Asthma Gastrointestinal History: Reports: Cirrhosis, GERD, Other (See Below) Other Gastrointestinal History: ascites, liver disease, cholecystitis, hepatic encephalopathy, stent placed in liver, voices that she is in last stages of liver failure. 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 History: Reports: , Spontaneous , Other (See Below) Other PLATE GRAINER History: Irregular [place] Musculoskeletal History: Reports: Back Pain, Chronic, Fracture, Other (See Below) Other Musculoskeletal History: collar bone, Neurological History: Reports: Brain Injury, CVA, Head Trauma, Seizure, Vertigo, Other (See Below) Other Neuro History: TBI ICH Skull defect Psychiatric History: Reports: Addiction, Anxiety, Depression, Psych Hospitalization(s), Suicide Attempt Hematologic History: Reports: Blood Transfusion(s), Iron Deficiency, Other (See Below) Other Hematologic History: Hypokelemia, hypomagnesemia, hyponatremia Oncologic (Cancer) History: Reports: Cervix Dermatologic History: Reports: None - Infectious Disease History Infectious Disease History: Reports: Chicken Pox - Past Surgical History Head Surgeries/Procedures: Reports: Craniotomy HEENT Surgical History: Reports: Adenoidectomy, Tonsillectomy Cardiovascular Surgical History: Reports: Coronary Artery Bypass Other Cardiovascular Surgeries/Procedures: cabg x 1 Respiratory Surgical History: Reports: None GI Surgical History: Reports: Appendectomy, Cholecystectomy, EGD, Other (See Below) Other GI Surgeries/Procedures: esophagus stretched at [facility] few days ago. Female Surgical History: Reports: Cystectomy, Other (See Below) Other Female Surgeries/Procedures: removal of abscess from left breast Neurological Surgical History: Reports: None Musculoskeletal Surgical History: Reports: Carpal Tunnel Oncologic Surgical History: Reports: None Social & Family History - Family History Family Medical History: No Pertinent Family History - Tobacco Use Tobacco Use Status *Q: Current Every Day Tobacco User Years of Tobacco use: 30 Packs/Tins Daily: 0.2 - Caffeine Use Caffeine Use: Reports: Coffee, Soda Caffeine Use Comment: one cup of coffee and one cup of tea - Recreational Drug Use Recreational Drug Use: No - Living Situation & Occupation Living situation: Reports: Single Occupation: Disabled (lives in Apartment, Sister and Uncle live in same building.) ED ROS GENERAL - Review of Systems Review Of Systems: See Below Constitutional: Reports: Weakness HEENT: Reports: No Symptoms Respiratory: Reports: No Symptoms Cardiovascular: Reports: No Symptoms Endocrine: Reports: No Symptoms GI/Abdominal: Reports: Nausea Musculoskeletal: Reports: No Symptoms Neurological: Reports: Headache - Physical Exam Exam: See Below Text/Narrative:: pt arrived with a severe headache. She has had these 2-3 times in the past. Exam Limited By: No Limitations General Appearance: Alert, Anxious, Moderate Distress, Other (pupils are small but equal) Ears: Normal TMs Nose: Normal Inspection Throat/Mouth: Normal Inspection Head Exam: Other (no new trauma. ) Neck: Normal Inspection Respiratory/Chest: No Respiratory Distress Cardiovascular: Regular Rate, Rhythm GI/Abdominal: Soft, Non-Tender (Female) Exam: Deferred Rectal (Female) Exam: Deferred Neuro Exam (Abbreviated): Alert, Oriented, Normal Cognition Back Exam: Normal Inspection Extremities: Normal Inspection Psychiatric: Anxious Course - Re-Assessments/Exams Free Text/Narrative Re-Assessment/Exam: 06/24/21 17:51 cat scan of the head showed no new findings. Her lab work looks like the UTI is clearing. She does appear to be quite dehydrated Pt is being hydratd with 2 liters of fluid. . 06/24/21 17:52 Departure - Departure Disposition: Home, Self-Care 01 Clinical Impression: Migraine - Discharge Information Instructions: Migraine Headache, [id number] Referrals: PCP,None [Primary Care Provider] - Forms: ED Department Discharge Sepsis Event Note (ED) - Evaluation Sepsis Screening Result: No Definite Risk <Luisito Contreras - Last Filed: 06/24/21 19:59> Course - Vital Signs Last Recorded V/S: Last Vital Signs Temp 36.9 C 06/24/21 14:09 Pulse 46 L 06/24/21 19:33 Resp 14 06/24/21 14:09 BP 108/56 L 06/24/21 19:33 Pulse Ox 93 L 06/24/21 19:33 - Orders/Labs/Meds Orders: Active Orders 24 hr Category Date Time Status CULTURE URINE [RM] Stat Lab 06/24/21 18:08 Received Sodium Chloride 0.9% [Normal Saline] 1,000 ml Med 06/24/21 14:45 Active IV ASDIRECTED Sodium Chloride 0.9% [Normal Saline] 1,000 ml Med 06/24/21 17:45 Active IV ASDIRECTED Medication Orders Sodium Chloride (Normal Saline) 1,000 mls @ 999 mls/hr IV ASDIRECTED [facility] Last Admin: 06/24/21 15:22 Dose: 999 mls/hr Documented by: ANDRES Sodium Chloride (Normal Saline) 1,000 mls @ 999 mls/hr IV ASDIRECTED JOSE Last Admin: 06/24/21 17:47 Dose: 999 mls/hr Documented by: ANDRES Labs: Laboratory Tests 06/24/21 06/24/21 06/24/21 Range/Units 14:39 14:53 15:04 WBC 5.2 (4.5-11.0) K/uL RBC 3.87 (3.30-5.50) M/uL Hgb 12.1 (12.0-15.0) g/dL Hct 36.2 (36.0-48.0) % MCV 94 (80-98) fL MCH 31 (27-31) pg MCHC 33 (32-36) % Plt Count 103 L (150-400) K/uL Neut % (Auto) 40.5 (36-66) % Lymph % (Auto) 46.4 H (24-44) % [place] % (Auto) 9.5 H (2-6) % Eos % (Auto) 3.4 (2-4) % Baso % (Auto) 0.2 (0-1) % Sodium 143 (140-148) mmol/L Potassium 4.3 (3.6-5.2) mmol/L Chloride 109 H (100-108) mmol/L Carbon Dioxide 27 (21-32) mmol/L Anion Gap 11.3 (5.0-14.0) mmol/L BUN 10 (7-18) mg/dL Creatinine 0.9 (0.6-1.0) mg/dL Est Cr Clr Drug Dosing 63.24 mL/min Estimated GFR (MDRD) > 60 (>60) Glucose 104 (74-106) mg/dL Calcium 8.7 (8.5-10.1) mg/dL Total Bilirubin 0.5 (0.2-1.0) mg/dL AST 30 (15-37) U/L ALT 27 (12-78) U/L Alkaline Phosphatase 106 (46-116) U/L Total Protein 5.5 L (6.4-8.2) g/dL Albumin 3.0 L (3.4-5.0) g/dL Globulin 2.5 (2.3-3.5) g/dL Albumin/Globulin Ratio 1.2 (1.2-2.2) Urine Color Yellow (YELLOW) Urine Appearance Clear (CLEAR) Urine pH 6.0 (5.0-8.0) Ur Specific [place] >= 1.030 (1.008-1.030) Urine Protein 30 H (NEGATIVE) mg/dL Urine Glucose (UA) Negative (NEGATIVE) mg/dL Urine Ketones Negative (NEGATIVE) mg/dL Urine Occult Blood Trace-intact H (NEGATIVE) Urine Nitrite Negative (NEGATIVE) Urine Bilirubin Negative (NEGATIVE) Urine Urobilinogen 0.2 (0.2-1.0) EU/dL Ur Leukocyte Esterase Negative (NEGATIVE) Urine RBC 0-5 (0-5) Urine WBC 0-5 (0-5) Ur Epithelial Cells Moderate Amorphous Sediment Few Urine Bacteria Few Urine Mucus Few Urine Opiates Screen (NEGATIVE) Ur Oxycodone Screen (NEGATIVE) Urine Methadone Screen (NEGATIVE) Ur Propoxyphene Screen (NEGATIVE) Ur Barbiturates Screen (NEGATIVE) Ur Tricyclics Screen (NEGATIVE) Ur Phencyclidine Scrn (NEGATIVE) Ur Amphetamine Screen (NEGATIVE) U Methamphetamines Scrn (NEGATIVE) Urine MDMA Screen (NEGATIVE) U Benzodiazepines Scrn (NEGATIVE) U Cocaine Metab Screen (NEGATIVE) U Marijuana (THC) Screen (NEGATIVE) 06/24/21 Range/Units 15:04 WBC (4.5-11.0) K/uL RBC (3.30-5.50) M/uL Hgb (12.0-15.0) g/dL Hct (36.0-48.0) % MCV (80-98) fL MCH (27-31) pg MCHC (32-36) % Plt Count (150-400) K/uL Neut % (Auto) (36-66) % Lymph % (Auto) (24-44) % [place] % (Auto) (2-6) % Eos % (Auto) (2-4) % Baso % (Auto) (0-1) % Sodium (140-148) mmol/L Potassium (3.6-5.2) mmol/L Chloride (100-108) mmol/L Carbon Dioxide (21-32) mmol/L Anion Gap (5.0-14.0) mmol/L BUN (7-18) mg/dL Creatinine (0.6-1.0) mg/dL Est Cr Clr Drug Dosing mL/min Estimated GFR (MDRD) (>60) Glucose (74-106) mg/dL Calcium (8.5-10.1) mg/dL Total Bilirubin (0.2-1.0) mg/dL AST (15-37) U/L ALT (12-78) U/L Alkaline Phosphatase (46-116) U/L Total Protein (6.4-8.2) g/dL Albumin (3.4-5.0) g/dL Globulin (2.3-3.5) g/dL Albumin/Globulin Ratio (1.2-2.2) Urine Color (YELLOW) Urine Appearance (CLEAR) Urine pH (5.0-8.0) Ur Specific [place] (1.008-1.030) Urine Protein (NEGATIVE) mg/dL Urine Glucose (UA) (NEGATIVE) mg/dL Urine Ketones (NEGATIVE) mg/dL Urine Occult Blood (NEGATIVE) Urine Nitrite (NEGATIVE) Urine Bilirubin (NEGATIVE) Urine Urobilinogen (0.2-1.0) EU/dL Ur Leukocyte Esterase (NEGATIVE) Urine RBC (0-5) Urine WBC (0-5) Ur Epithelial Cells Amorphous Sediment Urine Bacteria Urine Mucus Urine Opiates Screen Negative (NEGATIVE) Ur Oxycodone Screen Presumptive positive H (NEGATIVE) Urine Methadone Screen Negative (NEGATIVE) Ur Propoxyphene Screen Negative (NEGATIVE) Ur Barbiturates Screen Negative (NEGATIVE) Ur Tricyclics Screen Negative (NEGATIVE) Ur Phencyclidine Scrn Negative (NEGATIVE) Ur Amphetamine Screen Presumptive positive H (NEGATIVE) U Methamphetamines Scrn Negative (NEGATIVE) Urine MDMA Screen Negative (NEGATIVE) U Benzodiazepines Scrn Negative (NEGATIVE) U Cocaine Metab Screen Negative (NEGATIVE) U Marijuana (THC) Screen Negative (NEGATIVE) Meds: Medications Generic Name Dose Route Start Last Admin Trade Name Freq PRN Reason Stop Dose Admin Sodium Chloride 1,000 mls @ 999 mls/hr 06/24/21 14:45 06/24/21 15:22 Normal Saline IV 999 mls/hr ASDIRECTED JOSE Administration Sodium Chloride 1,000 mls @ 999 mls/hr 06/24/21 17:45 06/24/21 17:47 Normal Saline IV 999 mls/hr ASDIRECTED JOSE Administration Discontinued Medications Generic Name Dose Route Start Last Admin Trade Name Freq PRN Reason Stop Dose Admin Ketorolac Tromethamine 30 mg 06/24/21 14:41 06/24/21 15:33 Ketorolac 30 Mg/Ml Sdv IVPUSH 06/24/21 14:42 30 mg ONETIME ONE Administration Prochlorperazine Edisylate 10 mg 06/24/21 14:40 06/24/21 15:30 Prochlorperazine 10 Mg/2 Ml Sdv IVPUSH 06/24/21 14:41 10 mg ONETIME ONE Administration - Re-Assessments/Exams Free Text/Narrative Re-Assessment/Exam: 06/24/21 19:58 is now awake and doing better. She did have a episode of urinary incontinence because she couldn't find her call light. We did get a new clothing. At this time she is suitable for discharge in satisfactory condition. Departure - Departure Time of Disposition: 19:59 Sepsis Event Note (ED) - Focused Exam Vital Signs: Vital Signs Temp Pulse Resp BP Pulse Ox 06/24/21 19:33 46 L 108/56 L 93 L 06/24/21 18:21 39 L 96/50 L 97 06/24/21 15:51 42 L 80/40 L 97 06/24/21 15:12 44 L 88/35 L 97 06/24/21 14:09 36.9 C 56 L 14 103/70 97 06/24/21 14:06 36.9 C 56 L 14 103/70 97
[2021-06-24] MEDS ORDERED: Sodium Chloride 0.9% 1,000 ML IV SCH ×2 (14:45→17:45)
--- NOTE | 2021-06-24 17:11 | CRLCT ---
For Patients: As a result of the Century Cures Act, medical imaging exams and procedure reports are released immediately into your electronic medical record. You may view this report before your referring provider. If you have questions, please contact your health care provider. Indication: Pain severe headache Technique: Volumetric multidetector CT images of the head were obtained without the administration of low osmolar intravenous contrast. Comparison: CT head July 01, 2020 Findings: There is no intra-axial or extra-axial fluid collection. There is moderate effacement of the right cerebral convexity secondary to increasing ex vacuo intracranial pressure changes. There is again seen encephalomalacia of the right occipital lobe as well as the mesial right frontal lobe. There is mild ex vacuo dilatation of the right lateral ventricle with somewhat increased effacement of the right lateral ventricle from comparison. There is mildly increased [id number] midline shift of 4 millimeters from comparison. The remaining brain parenchyma is otherwise stable in attenuation and cannon-white differentiation. The orbits and their contents are grossly within normal limits. There is redemonstration of prior right craniectomy with an open calvarial defect with overall increasing concave appearance of the underlying dura. The paranasal sinuses are clear. The mastoid air cells are well aerated. Impression: Redemonstration of right craniectomy with overall increasing ex vacuo changes of the underlying dura with dural thickening as well as increasing dural concavity with mildly increased effacement of the right cerebral hemisphere with minimal [id number] midline shift somewhat increased from comparison. 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 Otherwise stable encephalomalacia of the mesial frontal lobe and right occipital lobes without evidence of additional acute intracranial abnormality. Please note that all CT scans at this facility use dose modulation, iterative reconstruction, and/or weight-based dosing when appropriate to reduce radiation dose to as low as reasonably achievable. Dictated by Denny Smith MD @ 06/24/2021 5:11:01 PM (Electronically Signed)
== END 2021-06-24 20:24 | disposition home or self-care (01) ==
LOC: JP.ED 13:57
DX: G43.909 Migraine, unspecified, not intractable, without status migrainosus (principal); I25.10 Atherosclerotic heart disease of native coronary artery without angina pectoris; I25.2 Old myocardial infarction; K21.9 Gastro-esophageal reflux disease without esophagitis; I10 Essential (primary) hypertension; J45.909 Unspecified asthma, uncomplicated; Z91.013 Allergy to seafood; Z88.8 Allergy status to other drugs, medicaments and biological substances; Z91.09 Other allergy status, other than to drugs and biological substances; Z95.5 Presence of coronary angioplasty implant and graft; Z72.0 Tobacco use; Z95.1 Presence of aortocoronary bypass graft
CPT/HCPCS: 36415; 70450; 80053; 80305; 81001; 85025; 87086; 96374; 96375; 99284; J0780; J1885; J7030

== ENCOUNTER 2021-07-05 14:57 | Emergency (ER) | payer MEDICAID | END 2021-07-05 15:44 | disposition left against medical advice (07) | LOC: JP.ED 14:57 | DX: Z53.21 Procedure and treatment not carried out due to patient leaving prior to being seen by health care provider (principal) ==

== ENCOUNTER 2021-07-15 15:30 | Emergency (ER) | payer MEDICAID ==
--- NOTE | 2021-07-15 16:31 | EDM.PDOC ---
ED HPI GENERAL MEDICAL PROBLEM - General Chief Complaint: General Stated Complaint: MEDICAL VIA [facility] Time Seen by Provider: 07/15/21 16:25 Source of Information: Reports: Patient, EMS, RN Notes Reviewed History Limitations: Reports: No Limitations - History of Present Illness INITIAL COMMENTS - FREE TEXT/NARRATIVE: 46-year-old female presents emergency department today concerned about increasing weakness. She has a known history of hepatic encephalopathy use usually well controlled on lactulose however she states on the she was call from clinic that her ammonia level was at 78 and they are very concerned however she states she has continued with her normal regiment but today she felt significantly worse and is really interested know what her ammonia level is. - Related Data Allergies Allergy/AdvReac Type Severity Reaction Status Date / Time Fish Containing Products Allergy Severe Airway Verified 07/15/21 15:55 Tightness ziprasidone [From Geodon] Allergy Severe Airway Verified 07/15/21 15:55 Tightness cefazolin Allergy Cannot Verified 07/15/21 15:55 Remember shellfish derived Allergy Swelling Verified 07/15/21 15:55 tree nut Allergy Hives Verified 07/15/21 15:55 lamotrigine [From Lamictal] AdvReac Leg Cramps Verified 07/15/21 15:55 msg Allergy Hives Uncoded 07/15/21 15:55 Home Meds: Home Meds Cyanocobalamin (Vitamin B-12) [B-12] 250 mcg PO DAILY 07/29/17 [History] Gabapentin [Neurontin] 200 mg PO BID 07/29/17 [History] Lactulose 15 ml PO QID 07/29/17 [History] levETIRAcetam [Keppra] 500 mg PO BID 07/29/17 [History] Omeprazole 40 mg PO BID 10/19/17 [History] Cholecalciferol (Vitamin D3) [Vitamin D3] 1 tab PO DAILY 09/16/19 [History] Folic Acid 1 mg PO DAILY 09/16/19 [History] Albuterol Sulfate [Proventil Hfa] 6.7 gm IH Q4H 09/29/19 [History] Albuterol [Proventil Neb Soln] 2.5 mg INH Q4H PRN 09/29/19 [History] Ferrous Gluconate 324 mg PO DAILY 09/29/19 [History] Nitroglycerin [Nitrostat] 0.4 mg SL ASDIRECTED PRN 09/29/19 [History] Rifaximin [Xifaxan] 550 mg PO BID 09/29/19 [History] Thiamine [Vitamin B-1] 1 tab PO DAILY 09/29/19 [History] oxyCODONE 10 mg PO Q4H PRN 09/29/19 [History] Meclizine [Antivert] 12.5 mg PO TID 11/28/19 [History] Topiramate 100 mg PO BID 07/22/20 [History] Eszopiclone [Lunesta] 1 mg PO BEDTIME 11/23/20 [History] ondansetron HCL [Zofran] 4 mg PO Q8HR PRN 11/23/20 [History] Vortioxetine Hydrobromide [Brintellix] 10 mg PO DAILY 12/06/20 [History] Midodrine 5 mg PO TID #30 tab 05/09/21 [Rx] Calcium Carbonate [Calcium] 500 mg PO DAILY 07/15/21 [History] Furosemide 1.5 tab PO DAILY 07/15/21 [History] Magnesium Oxide 400 mg PO DAILY 07/15/21 [History] Sucralfate [Carafate] 1 tab PO QID 07/15/21 [History] levETIRAcetam [Keppra] 500 mg PO BID 07/15/21 [History] Past Medical History HEENT History: Reports: Hard of Hearing, Impaired Vision Cardiovascular History: Reports: CAD, MA, Other (See Below) Other Cardiovascular History: portal hypertension. MA was 2002 Respiratory History: Reports: Asthma Gastrointestinal History: Reports: Cirrhosis, GERD, Other (See Below) Other Gastrointestinal History: ascites, liver disease, cholecystitis, hepatic encephalopathy, stent placed in liver, voices that she is in last stages of liver failure. Genitourinary History: Reports: Renal Calculus, Other (See Below) Other Genitourinary History: urethral stent placed that extends to kidney DOCK BOSS History: Reports: , Spontaneous , Other (See Below) Other DOCK BOSS History: Irregular [place] Musculoskeletal History: Reports: Back Pain, Chronic, Fracture, Other (See Below) Other Musculoskeletal History: collar bone, Neurological History: Reports: Brain Injury, CVA, Head Trauma, Seizure, Vertigo, Other (See Below) Other Neuro History: TBI ICH Skull defect Psychiatric History: Reports: Addiction, Anxiety, Depression, Psych Hospitalization(s), Suicide Attempt Hematologic History: Reports: Blood Transfusion(s), Iron Deficiency, Other (See Below) Other Hematologic History: Hypokelemia, hypomagnesemia, hyponatremia Oncologic (Cancer) History: Reports: Cervix Dermatologic History: Reports: None - Infectious Disease History Infectious Disease History: Reports: Chicken Pox - Past Surgical History Head Surgeries/Procedures: Reports: Craniotomy HEENT Surgical History: Reports: Adenoidectomy, Tonsillectomy Cardiovascular Surgical History: Reports: Coronary Artery Bypass Other Cardiovascular Surgeries/Procedures: cabg x 1 Respiratory Surgical History: Reports: None GI Surgical History: Reports: Appendectomy, Cholecystectomy, EGD, Other (See Below) Other GI Surgeries/Procedures: esophagus stretched at [facility] few days ago. Female Surgical History: Reports: Cystectomy, Other (See Below) Other Female Surgeries/Procedures: removal of abscess from left breast Neurological Surgical History: Reports: None Musculoskeletal Surgical History: Reports: Carpal Tunnel Oncologic Surgical History: Reports: None Dermatological Surgical History: Reports: None Social & Family History - Family History Family Medical History: No Pertinent Family History - Tobacco Use Tobacco Use Status *Q: Current Every Day Tobacco User Years of Tobacco use: 40 Packs/Tins Daily: 0.1 - Caffeine Use Caffeine Use: Reports: Coffee, Soda Caffeine Use Comment: one cup of coffee and one cup of tea - Living Situation & Occupation Living situation: Reports: Single Occupation: Disabled (lives in Apartment, Sister and Uncle live in same building.) ED ROS GENERAL - Review of Systems Review Of Systems: See Below Constitutional: Reports: Weakness, Fatigue HEENT: Reports: No Symptoms Respiratory: Reports: No Symptoms Cardiovascular: Reports: No Symptoms GI/Abdominal: Reports: No Symptoms ED EXAM, GENERAL - Physical Exam Exam: See Below Exam Limited By: No Limitations General Appearance: Alert, WD/WN, No Apparent Distress Respiratory/Chest: No Respiratory Distress, Lungs Clear, Normal Breath Sounds, No Accessory Muscle Use, Chest Non-Tender Cardiovascular: Regular Rate, Rhythm, No Murmur GI/Abdominal: Soft, Non-Tender Course - Vital Signs Last Recorded V/S: Last Vital Signs Temp 98.2 F 07/15/21 16:00 Pulse 65 07/15/21 16:00 Resp 16 07/15/21 16:00 BP 149/70 H 07/15/21 16:00 Pulse Ox 97 07/15/21 16:00 - Orders/Labs/Meds Labs: Laboratory Tests 07/15/21 07/15/21 07/15/21 Range/Units 16:39 16:39 16:39 WBC 6.4 (4.5-11.0) K/uL RBC 4.06 (3.30-5.50) M/uL Hgb 12.7 (12.0-15.0) g/dL Hct 37.5 (36.0-48.0) % MCV 92 (80-98) fL MCH 31 (27-31) pg MCHC 34 (32-36) % Plt Count 95 L (150-400) K/uL Neut % (Auto) 48.7 (36-66) % Lymph % (Auto) 38.7 (24-44) % [place] % (Auto) 10.4 H (2-6) % Eos % (Auto) 1.9 L (2-4) % Baso % (Auto) 0.3 (0-1) % Sodium 143 (140-148) mmol/L Potassium 3.8 (3.6-5.2) mmol/L Chloride 109 H (100-108) mmol/L Carbon Dioxide 24 (21-32) mmol/L Anion Gap 13.8 (5.0-14.0) mmol/L BUN 11 (7-18) mg/dL Creatinine 1.0 (0.6-1.0) mg/dL Est Cr Clr Drug Dosing 55.66 mL/min Estimated GFR (MDRD) 59 L (>60) Glucose 91 (74-106) mg/dL Calcium 8.8 (8.5-10.1) mg/dL Total Bilirubin 0.6 (0.2-1.0) mg/dL AST 82 H D (15-37) U/L ALT 83 H (12-78) U/L Alkaline Phosphatase 118 H (46-116) U/L Ammonia < 11 L (11-32) umol/L Total Protein 6.0 L (6.4-8.2) g/dL Albumin 3.2 L (3.4-5.0) g/dL Globulin 2.8 (2.3-3.5) g/dL Albumin/Globulin Ratio 1.1 L (1.2-2.2) Lipase 80 (73-393) U/L Ethyl Alcohol mg/dL 07/15/21 Range/Units 16:39 WBC (4.5-11.0) K/uL RBC (3.30-5.50) M/uL Hgb (12.0-15.0) g/dL Hct (36.0-48.0) % MCV (80-98) fL MCH (27-31) pg MCHC (32-36) % Plt Count (150-400) K/uL Neut % (Auto) (36-66) % Lymph % (Auto) (24-44) % [place] % (Auto) (2-6) % Eos % (Auto) (2-4) % Baso % (Auto) (0-1) % Sodium (140-148) mmol/L Potassium (3.6-5.2) mmol/L Chloride (100-108) mmol/L Carbon Dioxide (21-32) mmol/L Anion Gap (5.0-14.0) mmol/L BUN (7-18) mg/dL Creatinine (0.6-1.0) mg/dL Est Cr Clr Drug Dosing mL/min Estimated GFR (MDRD) (>60) Glucose (74-106) mg/dL Calcium (8.5-10.1) mg/dL Total Bilirubin (0.2-1.0) mg/dL AST (15-37) U/L ALT (12-78) U/L Alkaline Phosphatase (46-116) U/L Ammonia (11-32) umol/L Total Protein (6.4-8.2) g/dL Albumin (3.4-5.0) g/dL Globulin (2.3-3.5) g/dL Albumin/Globulin Ratio (1.2-2.2) Lipase (73-393) U/L Ethyl Alcohol < 3 mg/dL Departure - Departure Time of Disposition: 17:33 Disposition: Home, Self-Care 01 Condition: Fair Clinical Impression: Evaluation by medical service required - Discharge Information Referrals: PCP,None [Primary Care Provider] - Forms: ED Department Discharge Additional Instructions: Continue with your current medications, please followup with your primary care provider in 3-5 days if not better, please call return to the emergency department with worsening of symptoms. Sepsis Event Note (ED) - Evaluation Sepsis Screening Result: No Definite Risk - Focused Exam Vital Signs: Vital Signs Temp Pulse Resp BP Pulse Ox 07/15/21 16:00 98.2 F 65 16 149/70 H 97 07/15/21 15:41 98.2 F 65 16 149/70 H 97 - Assessment/Plan Plan: Assessment Acuity = acute Site and laterality = medical evaluation Etiology = concern for elevated ammonia levels Manifestations = none Location of injury = Home Lab values = CBC unremarkable AST slightly elevated 82 ALT at 83 consistent elevated liver enzymes ammonia less than 11 Plan Continue with current care of lactulose follow-up with primary care as needed This note was dictated using [employer] voice recognition software please call with any questions on syntax or grammar.
== END 2021-07-15 17:56 | disposition home or self-care (01) ==
LOC: JP.ED 15:30
DX: Z00.00 Encounter for general adult medical examination without abnormal findings (principal); I25.10 Atherosclerotic heart disease of native coronary artery without angina pectoris; I25.2 Old myocardial infarction; J45.909 Unspecified asthma, uncomplicated; K21.9 Gastro-esophageal reflux disease without esophagitis; R56.9 Unspecified convulsions; Z72.0 Tobacco use; Z91.013 Allergy to seafood; Z88.8 Allergy status to other drugs, medicaments and biological substances; Z88.1 Allergy status to other antibiotic agents; Z91.018 Allergy to other foods; Z79.899 Other long term (current) drug therapy
CPT/HCPCS: 36415; 80053; 80307; 82140; 83690; 85025; 99284

== ENCOUNTER 2021-08-20 14:51 | Emergency (ER) | payer MEDICAID ==
--- NOTE | 2021-08-20 16:29 | EDM.PDOC ---
ED HPI GENERAL MEDICAL PROBLEM - General Chief Complaint: Flank Pain Stated Complaint: KIDNEY PAIN Time Seen by Provider: 08/20/21 16:15 Source of Information: Reports: Patient, Old Records, RN History Limitations: Reports: No Limitations - History of Present Illness INITIAL COMMENTS - FREE TEXT/NARRATIVE: 46 yo female presents with R flank pain since yesterday that has been constant. Has been tx'd on and off for the past month for a UTI. Is currently on cefdinir 300 mg daily for it. Thinks she's had a fever to 100F. No nausea. Has burning with urination. The clinics UA from 3 d ago showed 10-20 wbc/hpf, but her culture showed mixed alcon and only 25,000 colonies at 3 days. Onset: Gradual Onset Date: 08/19/21 Duration: Day(s): (1+), Getting Worse Location: Reports: Back (R flank) Quality: Reports: Ache Severity: Moderate Improves with: Reports: None Worsens with: Reports: Other (time) Context: Reports: Other (See HPI) Associated Symptoms: Reports: Fever/Chills. 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) (cefdinir) Right Flank Pain Score (Numeric/FACES): 7 - Related Data Allergies Allergy/AdvReac Type Severity Reaction Status Date / Time Fish Containing Products Allergy Severe Airway Verified 08/20/21 15:07 Tightness ziprasidone [From Geodon] Allergy Severe Airway Verified 08/20/21 15:07 Tightness cefazolin Allergy Cannot Verified 08/20/21 15:07 Remember shellfish derived Allergy Swelling Verified 08/20/21 15:07 tree nut Allergy Hives Verified 08/20/21 15:07 lamotrigine [From Lamictal] AdvReac Leg Cramps Verified 08/20/21 15:07 msg Allergy Hives Uncoded 08/20/21 15:07 Home Meds: Home Meds Cyanocobalamin (Vitamin B-12) [B-12] 250 mcg PO DAILY 07/29/17 [History] Gabapentin [Neurontin] 200 mg PO BID 07/29/17 [History] Lactulose 15 ml PO QID 07/29/17 [History] levETIRAcetam [Keppra] 500 mg PO BID 07/29/17 [History] Omeprazole 40 mg PO BID 10/19/17 [History] Cholecalciferol (Vitamin D3) [Vitamin D3] 1 tab PO DAILY 09/16/19 [History] Folic Acid 1 mg PO DAILY 09/16/19 [History] Albuterol Sulfate [Proventil Hfa] 6.7 gm IH Q4H 09/29/19 [History] Albuterol [Proventil Neb Soln] 2.5 mg INH Q4H PRN 09/29/19 [History] Ferrous Gluconate 324 mg PO DAILY 09/29/19 [History] Nitroglycerin [Nitrostat] 0.4 mg SL ASDIRECTED PRN 09/29/19 [History] Rifaximin [Xifaxan] 550 mg PO BID 09/29/19 [History] Thiamine [Vitamin B-1] 1 tab PO DAILY 09/29/19 [History] oxyCODONE 10 mg PO Q4H PRN 09/29/19 [History] Meclizine [Antivert] 12.5 mg PO TID 11/28/19 [History] Topiramate 100 mg PO BID 07/22/20 [History] Eszopiclone [Lunesta] 1 mg PO BEDTIME 11/23/20 [History] ondansetron HCL [Zofran] 4 mg PO Q8HR PRN 11/23/20 [History] Vortioxetine Hydrobromide [Brintellix] 10 mg PO DAILY 12/06/20 [History] Midodrine 5 mg PO TID #30 tab 05/09/21 [Rx] Calcium Carbonate [Calcium] 500 mg PO DAILY 07/15/21 [History] Furosemide 1.5 tab PO DAILY 07/15/21 [History] Magnesium Oxide 400 mg PO DAILY 07/15/21 [History] Sucralfate [Carafate] 1 tab PO QID 07/15/21 [History] Cefdinir [Omnicef] 300 mg PO Q12HR 08/20/21 [History] Past Medical History HEENT History: Reports: Hard of Hearing, Impaired Vision Cardiovascular History: Reports: CAD, PA, Other (See Below) Other Cardiovascular History: portal hypertension. PA was 2002 Respiratory History: Reports: Asthma Gastrointestinal History: Reports: Cirrhosis, GERD, Other (See Below) Other Gastrointestinal History: ascites, liver disease, cholecystitis, hepatic encephalopathy, stent placed in liver, voices that she is in last stages of liver failure. Genitourinary History: Reports: Renal Calculus, Other (See Below) Other Genitourinary History: urethral stent placed that extends to kidney OLIVE GROWER History: Reports: , Spontaneous , Other (See Below) Other OLIVE GROWER History: Irregular [place] oca Musculoskeletal History: Reports: Back Pain, Chronic, Fracture, Other (See Below) Other Musculoskeletal History: collar bone, Neurological History: Reports: Brain Injury, CVA, Head Trauma, Seizure, Vertigo, Other (See Below) Other Neuro History: TBI ICH Skull defect Psychiatric History: Reports: Addiction, Anxiety, Depression, Psych Hospitalization(s), Suicide Attempt Hematologic History: Reports: Blood Transfusion(s), Iron Deficiency, Other (See Below) Other Hematologic History: Hypokelemia, hypomagnesemia, hyponatremia Oncologic (Cancer) History: Reports: Cervix Dermatologic History: Reports: None - Infectious Disease History Infectious Disease History: Reports: Chicken Pox - Past Surgical History Head Surgeries/Procedures: Reports: Craniotomy HEENT Surgical History: Reports: Adenoidectomy, Tonsillectomy Cardiovascular Surgical History: Reports: Coronary Artery Bypass Other Cardiovascular Surgeries/Procedures: cabg x 1 Respiratory Surgical History: Reports: None GI Surgical History: Reports: Appendectomy, Cholecystectomy, EGD, Other (See Below) Other GI Surgeries/Procedures: esophagus stretched at few days ago. Female Surgical History: Reports: Cystectomy, Other (See Below) Other Female Surgeries/Procedures: removal of abscess from left breast Neurological Surgical History: Reports: None Musculoskeletal Surgical History: Reports: Carpal Tunnel Oncologic Surgical History: Reports: None Dermatological Surgical History: Reports: None Social & Family History - Family History Family Medical History: No Pertinent Family History - Caffeine Use Caffeine Use: Reports: Coffee, Soda Caffeine Use Comment: one cup of coffee and one cup of tea - Living Situation & Occupation Living situation: Reports: Single Occupation: Disabled (lives in Apartment, Sister and Uncle live in same building.) ED ROS GENERAL - Review of Systems Review Of Systems: See Below Constitutional: Reports: Fever, Malaise HEENT: Reports: No Symptoms Respiratory: Reports: No Symptoms Cardiovascular: Reports: No Symptoms GI/Abdominal: Reports: No Symptoms : Reports: Dysuria, Flank Pain (right) Skin: Reports: No Symptoms Neurological: Reports: Headache (intermittent) ED EXAM, RENAL/ - Physical Exam Exam: See Below Exam Limited By: No Limitations General Appearance: Alert, WD/WN, No Apparent Distress Eye Exam: Bilateral Eye: Normal Inspection Ears: Normal External Exam, Normal Canal, Hearing Grossly Normal Nose: Normal Inspection, No Blood Throat/Mouth: Normal Inspection, Normal Lips, Normal Oropharynx, Normal Voice, No Airway Compromise Head: Atraumatic, Normocephalic Neck: Normal Inspection Respiratory/Chest: No Respiratory Distress, Lungs Clear, Normal Breath Sounds, No Accessory Muscle Use Cardiovascular: Regular Rate, Rhythm, No Edema GI/Abdominal: Normal Bowel Sounds, Soft, Non-Tender, No Distention. No: Distended Back Exam: Normal Inspection, CVA Tenderness (R). No: CVA Tenderness (L) Extremities: Normal Inspection Neurological: Alert, Oriented, CN II-XII Intact, Normal Cognition, No Motor/Sensory Deficits Psychiatric: Normal Affect, Normal Mood Skin Exam: Warm, Dry, Intact, Normal Color, No Rash Course - Vital Signs Last Recorded V/S: Last Vital Signs Temp 36.8 C 08/20/21 15:02 Pulse 62 08/20/21 15:02 Resp 18 08/20/21 15:02 BP 118/69 08/20/21 15:02 Pulse Ox 100 08/20/21 15:02 - Orders/Labs/Meds Labs: Laboratory Tests 08/20/21 08/20/21 08/20/21 Range/Units 16:19 16:38 16:38 WBC 6.1 (4.5-11.0) K/uL RBC 4.07 (3.30-5.50) M/uL Hgb 12.7 (12.0-15.0) g/dL Hct 37.8 (36.0-48.0) % MCV 93 (80-98) fL MCH 31 (27-31) pg MCHC 34 (32-36) % Plt Count 101 L (150-400) K/uL C-Reactive Protein < 0.05 (0.0-0.3) mg/dL Urine Color Yellow (YELLOW) Urine Appearance Cloudy A (CLEAR) Urine pH 7.0 (5.0-8.0) Ur Specific Justice 1.025 (1.008-1.030) Urine Protein Negative (NEGATIVE) mg/dL Urine Glucose (UA) Negative (NEGATIVE) mg/dL Urine Ketones Negative (NEGATIVE) mg/dL Urine Occult Blood Trace-intact H (NEGATIVE) Urine Nitrite Negative (NEGATIVE) Urine Bilirubin Negative (NEGATIVE) Urine Urobilinogen 0.2 (0.2-1.0) EU/dL Ur Leukocyte Esterase Moderate H (NEGATIVE) Urine RBC 5-10 H (0-5) Urine WBC 5-10 H (0-5) Ur Epithelial Cells Many Amorphous Sediment Many Urine Bacteria Moderate Urine Mucus Moderate Urinalysis Comment See note Departure - Departure Time of Disposition: 17:01 Disposition: Home, Self-Care 01 Condition: Good Clinical Impression: Muscular pain - Discharge Information *PRESCRIPTION DRUG MONITORING PROGRAM REVIEWED*: Not Applicable *COPY OF PRESCRIPTION DRUG MONITORING REPORT IN PATIENT NOMAN: Not Applicable Instructions: Muscle Pain, Adult Referrals: Zelda Rodriguez DO [Primary Care Provider] - Forms: ED Department Discharge Additional Instructions: Try hot water bottles, Icy Hot, or massage. Avoid lifting, bending or twisting for a couple days. Your lab tests today were all normal so you do not have an active current kidney infection. Recheck with your doctor as needed. Sepsis Event Note (ED) - Focused Exam Vital Signs: Vital Signs Temp Pulse Resp BP Pulse Ox 08/20/21 15:02 36.8 C 62 18 118/69 100
== END 2021-08-20 17:13 | disposition home or self-care (01) ==
LOC: JP.ED 14:51
DX: M79.10 Myalgia, unspecified site (principal); I25.10 Atherosclerotic heart disease of native coronary artery without angina pectoris; I25.2 Old myocardial infarction; I10 Essential (primary) hypertension; K21.9 Gastro-esophageal reflux disease without esophagitis; Z91.013 Allergy to seafood; Z91.010 Allergy to peanuts; Z88.8 Allergy status to other drugs, medicaments and biological substances; Z88.1 Allergy status to other antibiotic agents; Z79.899 Other long term (current) drug therapy
CPT/HCPCS: 36415; 81001; 85027; 86140; 99284

== ENCOUNTER 2021-08-31 15:34 | Emergency (ER) | payer MEDICAID ==
[2021-08-31] MEDS ORDERED: Ketorolac 30 MG/ML SDV IM ONE (16:57)
[2021-08-31] MEDS ORDERED: Ondansetron 4 MG Tab.DIS PO ONE (16:57)
--- NOTE | 2021-08-31 17:03 | EDM.PDOC ---
ED HPI GENERAL MEDICAL PROBLEM - General Chief Complaint: Head Injury Stated Complaint: MEDICAL VIA NORTH Time Seen by Provider: 08/31/21 16:45 Source of Information: Reports: Patient, Old Records, RN History Limitations: Reports: No Limitations - History of Present Illness INITIAL COMMENTS - FREE TEXT/NARRATIVE: 46 yo female here after falling off her toilet last night sometime between 3 and 5 am. She thinks she vomited once since then. Has a KOO and some mild persistent nausea since. Has a PHx of surgical removal of the right half of her skull. Thinks she fell off the toilet due to diarrhea from her lactulose that she uses for her otherwise elevated ammonia level from her liver dz. 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: Other (see below) (none) Head Pain Score (Numeric/FACES): 10 - Related Data Allergies Allergy/AdvReac Type Severity Reaction Status Date / Time Fish Containing Products Allergy Severe Airway Verified 08/31/21 16:33 Tightness ziprasidone [From Geodon] Allergy Severe Airway Verified 08/31/21 16:33 Tightness cefazolin Allergy Cannot Verified 08/31/21 16:33 Remember shellfish derived Allergy Swelling Verified 08/31/21 16:33 tree nut Allergy Hives Verified 08/31/21 16:33 lamotrigine [From Lamictal] AdvReac Leg Cramps Verified 08/31/21 16:33 msg Allergy Hives Uncoded 08/20/21 15:07 Home Meds: Home Meds Cyanocobalamin (Vitamin B-12) [B-12] 250 mcg PO DAILY 07/29/17 [History] Gabapentin [Neurontin] 200 mg PO BID 07/29/17 [History] Lactulose 15 ml PO QID 07/29/17 [History] levETIRAcetam [Keppra] 500 mg PO BID 07/29/17 [History] Omeprazole 40 mg PO BID 10/19/17 [History] Cholecalciferol (Vitamin D3) [Vitamin D3] 1 tab PO DAILY 09/16/19 [History] Folic Acid 1 mg PO DAILY 09/16/19 [History] Albuterol Sulfate [Proventil Hfa] 6.7 gm IH Q4H 09/29/19 [History] Albuterol [Proventil Neb Soln] 2.5 mg INH Q4H PRN 09/29/19 [History] Ferrous Gluconate 324 mg PO DAILY 09/29/19 [History] Nitroglycerin [Nitrostat] 0.4 mg SL ASDIRECTED PRN 09/29/19 [History] Rifaximin [Xifaxan] 550 mg PO BID 09/29/19 [History] Thiamine [Vitamin B-1] 1 tab PO DAILY 09/29/19 [History] oxyCODONE 10 mg PO Q4H PRN 09/29/19 [History] Meclizine [Antivert] 12.5 mg PO TID 11/28/19 [History] Topiramate 100 mg PO BID 07/22/20 [History] Eszopiclone [Lunesta] 1 mg PO BEDTIME 11/23/20 [History] ondansetron HCL [Zofran] 4 mg PO Q8HR PRN 11/23/20 [History] Vortioxetine Hydrobromide [Brintellix] 10 mg PO DAILY 12/06/20 [History] Midodrine 5 mg PO TID #30 tab 05/09/21 [Rx] Calcium Carbonate [Calcium] 500 mg PO DAILY 07/15/21 [History] Furosemide 1.5 tab PO DAILY 07/15/21 [History] Magnesium Oxide 400 mg PO DAILY 07/15/21 [History] Sucralfate [Carafate] 1 tab PO QID 07/15/21 [History] Past Medical History HEENT History: Reports: Hard of Hearing, Impaired Vision, Other (See Below) 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 [place] was 2002 Respiratory History: Reports: Asthma Gastrointestinal History: Reports: Cirrhosis, GERD, Other (See Below) Other Gastrointestinal History: ascites, liver disease, cholecystitis, hepatic encephalopathy, stent placed in liver, voices that she is in last stages of liver failure. 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: Reports: , Spontaneous , Other (See Below) Other PLANE RUNNER History: Irregular [place] Musculoskeletal History: Reports: Back Pain, Chronic, Fracture, Other (See Below) Other Musculoskeletal History: collar bone, Neurological History: Reports: Brain Injury, CVA, Head Trauma, Seizure, Vertigo, Other (See Below) Other Neuro History: TBI ICH Skull defect Psychiatric History: Reports: Addiction, Anxiety, Depression, Psych Hosp italization(s), Suicide Attempt Hematologic History: Reports: Blood Transfusion(s), Iron Deficiency, Other (See Below) Other Hematologic History: Hypokelemia, hypomagnesemia, hyponatremia Oncologic (Cancer) History: Reports: Cervix Dermatologic History: Reports: None - Infectious Disease History Infectious Disease History: Reports: Chicken Pox - Past Surgical History Head Surgeries/Procedures: Reports: Craniotomy HEENT Surgical History: Reports: Adenoidectomy, Tonsillectomy Cardiovascular Surgical History: Reports: Coronary Artery Bypass Other Cardiovascular Surgeries/Procedures: cabg x 1 Respiratory Surgical History: Reports: None GI Surgical History: Reports: Appendectomy, Cholecystectomy, EGD, Other (See Below) Other GI Surgeries/Procedures: esophagus stretched at [facility] few days ago. Female Surgical History: Reports: Cystectomy, Other (See Below) Other Female Surgeries/Procedures: removal of abscess from left breast Neurological Surgical History: Reports: None Musculoskeletal Surgical History: Reports: Carpal Tunnel Oncologic Surgical History: Reports: None Social & Family History - Family History Family Medical History: No Pertinent Family History - Tobacco Use Tobacco Use Status *Q: Current Every Day Tobacco User Years of Tobacco use: 36 Packs/Tins Daily: 0.5 - Caffeine Use Caffeine Use: Reports: Coffee, Tea Caffeine Use Comment: one cup of coffee and one cup of tea - Recreational Drug Use Recreational Drug Use: No - Living Situation & Occupation Living situation: Reports: Single Occupation: Disabled (lives in Apartment, Sister and Uncle live in same building.) ED ROS GENERAL - Review of Systems Review Of Systems: See Below Constitutional: Reports: No Symptoms HEENT: Reports: No Symptoms Respiratory: Reports: No Symptoms Endocrine: Reports: No Symptoms GI/Abdominal: Reports: Nausea, Vomiting (once) : Reports: No Symptoms Musculoskeletal: Reports: Neck Pain Skin: Reports: No Symptoms Neurological: Reports: Headache ED EXAM, HEAD INJURY - Physical Exam Exam: See Below Exam Limited By: No Limitations General Appearance: Alert, WD/WN, No Apparent Distress Head: Atraumatic, Normocephalic Eyes: Bilateral Eye: EOMI, PERRL Ears: Normal External Exam, Normal Canal, Hearing Grossly Normal, Normal TMs Nose: Normal Inspection, No Blood Throat/Mouth: Normal Inspection, Normal Lips, Normal Oropharynx, Normal Voice, No Airway Compromise Neck: Normal Alignment, Normal Inspection, Painful Range of Motion. No: Non- Tender Respiratory: No Respiratory Distress, Lungs Clear, Normal Breath Sounds, No Accessory Muscle Use Cardiovascular: Regular Rate, Rhythm, No Edema GI/Abdominal Exam: Soft, Non-Tender, No Distention. 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 nml As Tested, No Motor/Sensory Deficits, Normal Mood/Affect, Oriented x 3 Skin: Normal Color, Warm/Dry - S[place]ord Coma Score Best Eye Response (Safford): (4) Open Spontaneously Best Verbal Response (Safford): (5) Oriented Best Motor Response (Ron): (6) Obeys Commands Ron Total: 15 Course - Vital Signs Last Recorded V/S: Last Vital Signs Temp 36.3 C 08/31/21 16:40 Pulse 50 L 08/31/21 17:52 Resp 16 08/31/21 16:40 BP 96/42 L 08/31/21 17:52 Pulse Ox 99 08/31/21 17:52 - Orders/Labs/Meds Orders: Active Orders 24 hr Category Date Time Status Cervical Spine wo Cont [CT] Stat Exams 08/31/21 16:57 Taken Head wo Cont [CT] Stat Exams 08/31/21 16:57 Taken Meds: Medications Discontinued Medications Generic Name Dose Route Start Last Admin Trade Name Freq PRN Reason Stop Dose Admin Ketorolac Tromethamine 30 mg 08/31/21 16:57 08/31/21 17:03 Ketorolac 30 Mg/Ml Sdv IM 08/31/21 16:58 30 mg ONETIME ONE Administration Ondansetron HCl 4 mg 08/31/21 16:57 08/31/21 17:04 Ondansetron 4 Mg Tab.Dis PO 08/31/21 16:58 4 mg ONETIME ONE Administration - Radiology Interpretation Free Text/Narrative:: Head CT scan- IMPRESSION: 1. No CT evidence of acute intracranial abnormality or closed-head injury. 2. 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 3. Stable encephalomalacia within the right occipital and parasagittal frontal lobes. Please note that all CT scans at this facility use dose modulation, iterative reconstruction, and/or weight-based dosing when appropriate to reduce radiation dose to as low as reasonably achievable. Dictated by Isael Villareal MD @ 08/31/2021 6:07:[address]-nothing acute CT Results Date: 08/31/21 Departure - Departure Time of Disposition: 18:18 Disposition: Home, Self-Care 01 Condition: Fair Clinical Impression: Concussion Qualifiers: Encounter type: initial encounter Loss of consciousness presence/duration: without LOC Qualified Code(s): S06.0X0A - Concussion without loss of consciousness, initial encounter Neck strain Qualifiers: Encounter type: initial encounter Qualified Code(s): S16.1XXA - Strain of muscle, fascia and tendon at neck level, initial encounter - Discharge Information *PRESCRIPTION DRUG MONITORING PROGRAM REVIEWED*: Not Applicable *COPY OF PRESCRIPTION DRUG MONITORING REPORT IN PATIENT NOMAN: Not Applicable Instructions: Concussion, Adult, [id number] Referrals: PCP,Unknown [Primary Care Provider] - Forms: ED Department Discharge Additional Instructions: Low dose ibuprofen as needed. Rest. Recheck if worse. Sepsis Event Note (ED) - Focused Exam Vital Signs: Vital Signs Temp Pulse Resp BP Pulse Ox 08/31/21 17:52 50 L 96/42 L 99 08/31/21 17:02 54 L 99/49 L 98 08/31/21 16:40 36.3 C 55 L 16 101/46 L 99 08/31/21 16:32 36.3 C 55 L 16 101/46 L 99 - My Orders Last 24 Hours: My Active Orders 08/31/21 16:57 Cervical Spine wo Cont [CT] Stat Head wo Cont [CT] Stat - Assessment/Plan Last 24 Hours: My Active Orders 08/31/21 16:57 Cervical Spine wo Cont [CT] Stat Head wo Cont [CT] Stat
--- NOTE | 2021-08-31 18:09 | CRLCT ---
For Patients: As a result of the Century Cures Act, medical imaging exams and procedure reports are released immediately into your electronic medical record. You may view this report before your referring provider. If you have questions, please contact your health care provider. DATE: 08/31/2021. CLINICAL HISTORY: Fall. TECHNIQUE: Standard helical CT image acquisition of the brain was performed. COMPARISON: 07/01/2020. FINDINGS: No significant interval change in the appearance or degree of effacement of the right cerebral convexity secondary to sinking skin syndrome/syndrome of the trephined. Stable appearance of encephalomalacia within the right occipital lobe as well as the parasagittal right frontal lobe with ex vacuo dilatation of the right lateral ventricle. No substantial interval change in the approximately 4 mm of right to left midline shift at the level of the septum pellucidum. No acute intracranial hemorrhage. Bull-white matter differentiation is preserved. No displaced calvarial fracture. Stable right craniectomy with open calvarial defect. The orbits are unremarkable. The paranasal sinuses are unremarkable. The mastoid air cells are unremarkable. IMPRESSION: 1. No CT evidence of acute intracranial abnormality or closed-head injury. 2. 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 3. Stable encephalomalacia within the right occipital and parasagittal frontal lobes. Please note that all CT scans at this facility use dose modulation, iterative reconstruction, and/or weight-based dosing when appropriate to reduce radiation dose to as low as reasonably achievable. Dictated by Isael Villareal MD @ 08/31/2021 6:07:42 PM (Electronically Signed)
--- NOTE | 2021-08-31 18:17 | CRLCT ---
For Patients: As a result of the Century Cures Act, medical imaging exams and procedure reports are released immediately into your electronic medical record. You may view this report before your referring provider. If you have questions, please contact your health care provider. DATE: 08/31/2021. CLINICAL HISTORY: Fall. TECHNIQUE: Helical CT acquisition of the cervical spine was performed. Coronal and sagittal reformations were performed and interpreted. COMPARISON: 06/01/2020. FINDINGS: There is no evidence of acute displaced fracture or traumatic malalignment of the cervical spine. The facets are well aligned. Vertebral body heights are maintained without evidence of significant compression deformity. No evidence of significant trauma at the craniocervical junction. Multilevel cervical spondylosis with straightening of the alignment of the cervical spine. Degenerative disc and endplate changes most pronounced at C5-6 and C6-7. At least mild central canal stenosis at C5-6 and probable moderate central canal stenosis at C6-7. Varying degrees of multilevel foraminal narrowing. The visualized prevertebral soft tissues are unremarkable. The visualized lung apices are unremarkable. IMPRESSION: 1. No acute displaced fracture or traumatic malalignment of the cervical spine. 2. Multilevel cervical spondylosis with straightening of the alignment of the cervical spine. 3. Probable mild central canal stenosis at C5-6 and moderate central canal stenosis at C6-7. This is not significantly changed from the comparison examination 4. Varying degrees of multilevel foraminal narrowing. Please note that all CT scans at this facility use dose modulation, iterative reconstruction, and/or weight-based dosing when appropriate to reduce radiation dose to as low as reasonably achievable. Dictated by Isael Villareal MD @ 08/31/2021 6:15:51 PM (Electronically Signed)
== END 2021-08-31 18:35 | disposition home or self-care (01) ==
LOC: JP.ED 15:34
DX: S06.0X0A Concussion without loss of consciousness, initial encounter (principal); S16.1XXA Strain of muscle, fascia and tendon at neck level, initial encounter; I25.2 Old myocardial infarction; I25.10 Atherosclerotic heart disease of native coronary artery without angina pectoris; Z72.0 Tobacco use; Z86.73 Personal history of transient ischemic attack (TIA), and cerebral infarction without residual deficits; Z91.013 Allergy to seafood; Z91.048 Other nonmedicinal substance allergy status; Z88.8 Allergy status to other drugs, medicaments and biological substances; Z88.5 Allergy status to narcotic agent; Z79.899 Other long term (current) drug therapy; W18.39XA Other fall on same level, initial encounter; Y92.002 Bathroom of unspecified non-institutional (private) residence as the place of occurrence of the external cause
CPT/HCPCS: 70450; 72125; 96372; 99283; A9270; J1885

== ENCOUNTER 2021-09-22 10:30 | Emergency (ER) | payer MEDICAID ==
--- NOTE | 2021-09-22 10:46 | EDM.PDOC ---
ED HPI GENERAL MEDICAL PROBLEM - General Chief Complaint: Chest Pain Stated Complaint: MEDICAL VIA NORTH Time Seen by Provider: 09/22/21 10:30 Source of Information: Reports: Patient, EMS History Limitations: Reports: No Limitations - History of Present Illness INITIAL COMMENTS - FREE TEXT/NARRATIVE: 46-year-old female was outside in the very cold air smoking a cigarette when she developed a very sudden knifelike sharp pain substernally. It hurts to breathe, she became nauseous, so went in the house and laid down. The pain persisted and she could not find her nitroglycerin or her Zofran so called the ambulance. In route she had consistent pain so they gave her IV fentanyl and IV Zofran, she now feels better. EKG shows no acute findings. She has been having intermit tent chest pain over the past several months and her primary provider has her set up with a cardiology consultation for palpitations intermittent chest pain. Onset: Sudden Duration: Other (Pain lasted at least 20 minutes) Location: Reports: Chest (Substernal and epigastric) Quality: Reports: Sharp, Stabbing Improves with: Reports: Other (Improved with fentanyl and Zofran) Worsens with: Reports: Breathing (Breathing was painful when the pain was more intense) Associated Symptoms: Reports: Chest Pain, Malaise, Nausea/Vomiting, Shortness of Breath. 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: Other (see below) (Patient received fentanyl and Zofran in route) Chest Pain Score (Numeric/FACES): 5 - Related Data Allergies Allergy/AdvReac Type Severity Reaction Status Date / Time Fish Containing Products Allergy Severe Airway Verified 09/22/21 10:46 Tightness ziprasidone [From Geodon] Allergy Severe Airway Verified 09/22/21 10:46 Tightness cefazolin Allergy Cannot Verified 09/22/21 10:46 Remember shellfish derived Allergy Swelling Verified 09/22/21 10:46 tree nut Allergy Hives Verified 09/22/21 10:46 lamotrigine [From Lamictal] AdvReac Leg Cramps Verified 09/22/21 10:46 msg Allergy Hives Uncoded 09/22/21 10:46 Home Meds: Home Meds Cyanocobalamin (Vitamin B-12) [B-12] 250 mcg PO DAILY 07/29/17 [History] Gabapentin [Neurontin] 200 mg PO BID 07/29/17 [History] Lactulose 15 ml PO QID 07/29/17 [History] levETIRAcetam [Keppra] 500 mg PO BID 07/29/17 [History] Omeprazole 40 mg PO BID 10/19/17 [History] Cholecalciferol (Vitamin D3) [Vitamin D3] 1 tab PO DAILY 09/16/19 [History] Folic Acid 1 mg PO DAILY 09/16/19 [History] Albuterol Sulfate [Proventil Hfa] 6.7 gm IH Q4H 09/29/19 [History] Albuterol [Proventil Neb Soln] 2.5 mg INH Q4H PRN 09/29/19 [History] Ferrous Gluconate 324 mg PO DAILY 09/29/19 [History] Nitroglycerin [Nitrostat] 0.4 mg SL ASDIRECTED PRN 09/29/19 [History] Rifaximin [Xifaxan] 550 mg PO BID 09/29/19 [History] Thiamine [Vitamin B-1] 1 tab PO DAILY 09/29/19 [History] oxyCODONE 10 mg PO Q4H PRN 09/29/19 [History] Meclizine [Antivert] 12.5 mg PO TID 11/28/19 [History] Topiramate 100 mg PO BID 07/22/20 [History] Eszopiclone [Lunesta] 1 mg PO BEDTIME 11/23/20 [History] ondansetron HCL [Zofran] 4 mg PO Q8HR PRN 11/23/20 [History] Vortioxetine Hydrobromide [Brintellix] 10 mg PO DAILY 12/06/20 [History] Midodrine 5 mg PO TID #30 tab 05/09/21 [Rx] Calcium Carbonate [Calcium] 500 mg PO DAILY 07/15/21 [History] Furosemide 1.5 tab PO DAILY 07/15/21 [History] Magnesium Oxide 400 mg PO DAILY 07/15/21 [History] Sucralfate [Carafate] 1 tab PO QID 07/15/21 [History] Past Medical History HEENT History: Reports: Hard of Hearing, Impaired Vision, Other (See Below) 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 [place] was 2002 Respiratory History: Reports: Asthma Gastrointestinal History: Reports: Cirrhosis, GERD, Other (See Below) Other Gastrointestinal History: ascites, liver disease, cholecystitis, hepatic encephalopathy, stent placed in liver, voices that she is in last stages of liver failure. Genitourinary History: Reports: Renal Calculus, Other (See Below) Other Genitourinary History: urethral stent placed that extends to kidney SECURITY GUARD History: Reports: , Spontaneous , Other (See Below) Other SECURITY GUARD History: Irregular [place] oca Musculoskeletal History: Reports: Back Pain, Chronic, Fracture, Other (See Below) Other Musculoskeletal History: collar bone, Neurological History: Reports: Brain Injury, CVA, Head Trauma, Seizure, Vertigo, Other (See Below) Other Neuro History: TBI ICH Skull defect Psychiatric History: Reports: Addiction, Anxiety, Depression, Psych Hospitalization(s), Suicide Attempt Hematologic History: Reports: Blood Transfusion(s), Iron Deficiency, Other (See Below) Other Hematologic History: Hypokelemia, hypomagnesemia, hyponatremia Oncologic (Cancer) History: Reports: Cervix Dermatologic History: Reports: None - Infectious Disease History Infectious Disease History: Reports: Chicken Pox - Past Surgical History Head Surgeries/Procedures: Reports: Craniotomy HEENT Surgical History: Reports: Adenoidectomy, Tonsillectomy Cardiovascular Surgical History: Reports: Coronary Artery Bypass Other Cardiovascular Surgeries/Procedures: cabg x 1 Respiratory Surgical History: Reports: None GI Surgical History: Reports: Appendectomy, Cholecystectomy, EGD, Other (See Below) Other GI Surgeries/Procedures: esophagus stretched at [facility] few days ago. Female Surgical History: Reports: Cystectomy, Other (See Below) Other Female Surgeries/Procedures: removal of abscess from left breast Neurological Surgical History: Reports: None Musculoskeletal Surgical History: Reports: Carpal Tunnel Oncologic Surgical History: Reports: None Social & Family History - Family History Family Medical History: No Pertinent Family History - Caffeine Use Caffeine Use: Reports: Coffee, Tea Caffeine Use Comment: one cup of coffee and one cup of tea - Living Situation & Occupation Living situation: Reports: Single Occupation: Disabled (lives in Apartment, Sister and Uncle live in same building.) ED ROS GENERAL - Review of Systems Review Of Systems: See Below Constitutional: Reports: Malaise. Denies: Fever, Chills HEENT: Reports: No Symptoms Respiratory: Reports: Pleuritic Chest Pain Cardiovascular: Reports: Chest Pain, Palpitations (No palpitations today but has been complaining about intermittent palpitations to her primary provider recently) GI/Abdominal: Reports: Abdominal Pain (Epigastric area only, sharp stabbing pa in) : Reports: No Symptoms Skin: Reports: No Symptoms Neurological: Reports: Syncope (He had an episode of syncope after being on the toilet a few days ago) Psychiatric: Reports: Anxiety ED EXAM, GENERAL - Physical Exam Exam: See Below Exam Limited By: No Limitations General Appearance: Alert, No Apparent Distress Eye Exam: Bilateral Eye: Normal Inspection Head: Other (No acute evidence of trauma) Neck: Non-Tender Respiratory/Chest: Lungs Clear Cardiovascular: Regular Rate, Rhythm, No Murmur. No: Extra Beats GI/Abdominal: Normal Bowel Sounds, Soft, Non-Tender (80) Extremities: No: Pedal Edema Neurological: Alert, Oriented Psychiatric: Normal Affect, Normal Mood Skin Exam: Warm, Dry Course - Vital Signs Last Recorded V/S: Last Vital Signs Temp 98.3 F 09/22/21 10:36 Pulse 62 09/22/21 10:36 Resp 16 09/22/21 10:36 BP 117/63 09/22/21 10:36 Pulse Ox 98 09/22/21 10:36 - Orders/Labs/Meds Labs: Laboratory Tests 09/22/21 09/22/21 Range/Units 10:59 10:59 WBC 5.4 (4.5-11.0) K/uL RBC 4.00 (3.30-5.50) M/uL Hgb 12.7 (12.0-15.0) g/dL Hct 37.0 (36.0-48.0) % MCV 93 (80-98) fL MCH 32 H (27-31) pg MCHC 34 (32-36) % Plt Count 95 L (150-400) K/uL Neut % (Auto) 51.4 (36-66) % Lymph % (Auto) 37.5 (24-44) % Ida % (Auto) 8.3 H (2-6) % Eos % (Auto) 2.2 (2-4) % Baso % (Auto) 0.4 (0-1) % Sodium 140 (140-148) mmol/L Potassium 3.5 L (3.6-5.2) mmol/L Chloride 108 (100-108) mmol/L Carbon Dioxide 23 (21-32) mmol/L Anion Gap 12.5 (5.0-14.0) mmol/L BUN 8 (7-18) mg/dL Creatinine 0.7 (0.6-1.0) mg/dL Est Cr Clr Drug Dosing 79.52 mL/min Estimated GFR (MDRD) > 60 (>60) Glucose 97 (74-106) mg/dL Calcium 8.7 (8.5-10.1) mg/dL Troponin I High Sens 7.0 (<=60.3) pg/mL - Re-Assessments/Exams Free Text/Narrative Re-Assessment/Exam: 09/22/21 10:48 EKG shows no acute findings, explained the patient that this does not act like cardiac pain and is more likely esophageal spasm or bronchospasm from smoking in the cold air. CBC BMP and troponin were drawn for reassurance and she will be kept on cardiac monitoring pending results. 09/22/21 11:38 Labs were all normal, cardiac monitoring was stable. Patient had a couple more episodes of brief chest pain while in the emergency room but she declined antacid or any further treatment. She will be discharged with atypical chest pain and will follow up as scheduled. Departure - Departure Time of Disposition: 12:05 Disposition: Home, Self-Care 01 Clinical Impression: Chest pain, atypical - Discharge Information Instructions: Nonspecific Chest Pain, Adult, [id number] Referrals: PCP,None [Primary Care Provider] - Forms: ED Department Discharge Care Plan Goals: Continue your current medications, increase activity as tolerated and try to decrease smoking as much as possible. Recheck for further testing as scheduled, or return sooner if pain is worsening or you develop other concerns. Sepsis Event Note (ED) - Focused Exam Vital Signs: Vital Signs Temp Pulse Resp BP Pulse Ox 09/22/21 10:36 98.3 F 62 16 117/63 98
== END 2021-09-22 12:05 | disposition home or self-care (01) ==
LOC: JP.ED 10:30
DX: R07.89 Other chest pain (principal); I10 Essential (primary) hypertension; I25.10 Atherosclerotic heart disease of native coronary artery without angina pectoris; I25.2 Old myocardial infarction; K21.9 Gastro-esophageal reflux disease without esophagitis; Z86.73 Personal history of transient ischemic attack (TIA), and cerebral infarction without residual deficits; Z91.013 Allergy to seafood; Z91.09 Other allergy status, other than to drugs and biological substances; Z88.8 Allergy status to other drugs, medicaments and biological substances; Z79.899 Other long term (current) drug therapy
CPT/HCPCS: 36415; 80048; 84484; 85025; 93010; 99284; 99285

== ENCOUNTER 2021-11-13 14:13 | Emergency (ER) | payer MEDICAID ==
[2021-11-13] MEDS ORDERED: HYDROmorphone 1 MG/ML Syringe IM ONE (15:10)
== END 2021-11-13 17:17 | disposition home or self-care (01) ==
LOC: JP.ED 14:13
DX: R31.9 Hematuria, unspecified (principal); I25.10 Atherosclerotic heart disease of native coronary artery without angina pectoris; I25.2 Old myocardial infarction; K21.9 Gastro-esophageal reflux disease without esophagitis; Z72.0 Tobacco use; Z91.013 Allergy to seafood; Z91.048 Other nonmedicinal substance allergy status; Z79.899 Other long term (current) drug therapy
CPT/HCPCS: 81001; 96372; 99282; 99284; J1170

== ENCOUNTER 2021-11-15 14:14 | Emergency (ER) | payer MEDICAID ==
[2021-11-15] MEDS ORDERED: LORazepam 1 MG Tab PO ONE (14:51)
== END 2021-11-15 16:46 | disposition home or self-care (01) ==
LOC: JP.ED 14:14
DX: F32.A Depression, unspecified (principal); I25.10 Atherosclerotic heart disease of native coronary artery without angina pectoris; I25.2 Old myocardial infarction; K21.9 Gastro-esophageal reflux disease without esophagitis; J45.909 Unspecified asthma, uncomplicated; Z86.73 Personal history of transient ischemic attack (TIA), and cerebral infarction without residual deficits; Z91.013 Allergy to seafood; Z91.048 Other nonmedicinal substance allergy status; Z88.8 Allergy status to other drugs, medicaments and biological substances; Z79.899 Other long term (current) drug therapy; Z72.0 Tobacco use
CPT/HCPCS: 36415; 80053; 82140; 85027; 99282; 99284; A9270-GY

== ENCOUNTER 2021-11-17 16:52 | Emergency (ER) | payer MEDICAID ==
[2021-11-17] MEDS ORDERED: Sodium Chloride 0.9% 10 ML Syringe FLUSH PRN (17:38)
[2021-11-17] MEDS ORDERED: LORazepam 2 MG/ML SDV IVPUSH ONE ×2 (17:38→19:22)
[2021-11-17] MEDS ORDERED: Lactated Ringers 1,000 ML IV SCH (17:45)
[2021-11-17] MEDS ORDERED: Morphine 2 MG/ML SYRINGE IVPUSH ONE (18:08)
[2021-11-17] MEDS ORDERED: Haloperidol Lactate 5 MG/ML SDV IVPUSH ONE (18:56)
[2021-11-17] MEDS ORDERED: Haloperidol Lactate 5 MG/ML SDV ONE (18:56)
[2021-11-17] MEDS ORDERED: diphenhydrAMINE 50 MG/ML SDV IVPUSH ONE (19:22)
== END 2021-11-18 12:55 | disposition home or self-care (01) ==
LOC: JP.ED 16:52
DX: F32.A Depression, unspecified (principal); F17.210 Nicotine dependence, cigarettes, uncomplicated; I25.2 Old myocardial infarction; K21.9 Gastro-esophageal reflux disease without esophagitis; I25.10 Atherosclerotic heart disease of native coronary artery without angina pectoris; Z79.899 Other long term (current) drug therapy; Z91.013 Allergy to seafood; Z91.048 Other nonmedicinal substance allergy status; Z88.8 Allergy status to other drugs, medicaments and biological substances
CPT/HCPCS: 36415; 80053; 80305-QW; 80307; 82140; 85025; 96374; 96375; 96376; 99282; 99284-25; J1200; J1630; J2060; J2270; J7120

== ENCOUNTER 2021-11-20 14:00 | Emergency (ER) | payer MEDICAID | END 2021-11-20 14:07 | disposition left against medical advice (07) | LOC: JP.ED 14:00 | DX: Z53.21 Procedure and treatment not carried out due to patient leaving prior to being seen by health care provider (principal) ==

== ENCOUNTER 2021-11-23 16:18 | Emergency (ER) | payer MEDICAID | END 2021-11-23 17:41 | disposition home or self-care (01) | LOC: JP.ED 16:18 | DX: R10.12 Left upper quadrant pain (principal); F10.10 Alcohol abuse, uncomplicated; I25.10 Atherosclerotic heart disease of native coronary artery without angina pectoris; I25.2 Old myocardial infarction; Z88.8 Allergy status to other drugs, medicaments and biological substances; Z91.09 Other allergy status, other than to drugs and biological substances; Z79.899 Other long term (current) drug therapy; Z91.013 Allergy to seafood; Z86.73 Personal history of transient ischemic attack (TIA), and cerebral infarction without residual deficits; Z72.0 Tobacco use; Y90.3 Blood alcohol level of 60-79 mg/100 ml | CPT/HCPCS: 36415; 80053; 80307; 83690; 85025; 99282; 99284 ==

== ENCOUNTER 2021-12-01 11:01 | Emergency (ER) | payer MEDICAID ==
[2021-12-01] MEDS ORDERED: Ketorolac 30 MG/ML SDV IVPUSH ONE (11:36)
[2021-12-01] MEDS ORDERED: Ketorolac 30 MG/ML SDV IM ONE (11:40)
[2021-12-01] MEDS ORDERED: Levofloxacin 500 MG Tab PO ONE (12:38)
== END 2021-12-01 13:40 | disposition home or self-care (01) ==
LOC: JP.ED 11:01
DX: S50.01XA Contusion of right elbow, initial encounter (principal); N39.0 Urinary tract infection, site not specified; I25.10 Atherosclerotic heart disease of native coronary artery without angina pectoris; I25.2 Old myocardial infarction; K21.9 Gastro-esophageal reflux disease without esophagitis; Z91.013 Allergy to seafood; Z88.8 Allergy status to other drugs, medicaments and biological substances; Z79.899 Other long term (current) drug therapy; Z72.0 Tobacco use; Z86.73 Personal history of transient ischemic attack (TIA), and cerebral infarction without residual deficits; W18.09XA Striking against other object with subsequent fall, initial encounter
CPT/HCPCS: 36415; 72100; 72100-26; 73080-26-RT; 73080-RT; 80307; 81001; 87086; 87088; 87186; 96372; 99282; 99284; J1885

== ENCOUNTER 2021-12-02 14:30 | Emergency (ER) | payer MEDICAID ==
[2021-12-02] MEDS ORDERED: Ketorolac 10 MG Tab PO ONE (16:01)
== END 2021-12-02 16:34 | disposition home or self-care (01) ==
LOC: JP.ED 14:30
DX: S40.011A Contusion of right shoulder, initial encounter (principal); I25.10 Atherosclerotic heart disease of native coronary artery without angina pectoris; I10 Essential (primary) hypertension; K21.9 Gastro-esophageal reflux disease without esophagitis; Z91.013 Allergy to seafood; Z88.8 Allergy status to other drugs, medicaments and biological substances; Z91.048 Other nonmedicinal substance allergy status; Z79.899 Other long term (current) drug therapy; W18.30XA Fall on same level, unspecified, initial encounter
CPT/HCPCS: 73030-26-RT; 73030-RT; 73060-26-RT; 73060-RT; 99282; 99283-25

== ENCOUNTER 2021-12-10 17:43 | Emergency (ER) | payer MEDICAID | END 2021-12-10 19:25 | disposition home or self-care (01) | LOC: JP.ED 17:43 | DX: F10.920 Alcohol use, unspecified with intoxication, uncomplicated (principal); R41.0 Disorientation, unspecified; E72.20 Disorder of urea cycle metabolism, unspecified; I10 Essential (primary) hypertension; I25.10 Atherosclerotic heart disease of native coronary artery without angina pectoris; I25.2 Old myocardial infarction; J45.909 Unspecified asthma, uncomplicated; K21.9 Gastro-esophageal reflux disease without esophagitis; Z91.013 Allergy to seafood; Z88.8 Allergy status to other drugs, medicaments and biological substances; Z91.018 Allergy to other foods; Z88.1 Allergy status to other antibiotic agents; Z86.73 Personal history of transient ischemic attack (TIA), and cerebral infarction without residual deficits; Z90.49 Acquired absence of other specified parts of digestive tract; Z79.899 Other long term (current) drug therapy | CPT/HCPCS: 36415; 80053; 80305-QW; 80307; 81001; 82140; 83690; 85025; 99283; 99284 ==

== ENCOUNTER 2021-12-22 09:20 | Emergency (ER) | payer MEDICAID | END 2021-12-22 10:51 | disposition home or self-care (01) | LOC: JP.ED 09:20 | DX: S90.122A Contusion of left lesser toe(s) without damage to nail, initial encounter (principal); F10.129 Alcohol abuse with intoxication, unspecified; I25.10 Atherosclerotic heart disease of native coronary artery without angina pectoris; I25.2 Old myocardial infarction; K21.9 Gastro-esophageal reflux disease without esophagitis; Z86.73 Personal history of transient ischemic attack (TIA), and cerebral infarction without residual deficits; Z91.013 Allergy to seafood; Z88.8 Allergy status to other drugs, medicaments and biological substances; Z79.899 Other long term (current) drug therapy; Z72.0 Tobacco use; Y90.8 Blood alcohol level of 240 mg/100 ml or more; W22.09XA Striking against other stationary object, initial encounter | CPT/HCPCS: 36415; 73660-26-T4; 73660-T4; 80307; 99283; 99284 ==

== ENCOUNTER 2021-12-22 21:01 | Emergency (ER) | payer MEDICAID ==
[2021-12-22] MEDS ORDERED: LORazepam 2 MG/ML SDV IM ONE (21:04)
[2021-12-22] MEDS ORDERED: Haloperidol Lactate 5 MG/ML SDV IM STA (21:04)
[2021-12-22] MEDS ORDERED: diphenhydrAMINE 50 MG/ML SDV IM ONE (21:04)
[2021-12-23] MEDS ORDERED: Potassium Chloride 20 MEQ Tab.ER PO ONE (06:14)
== END 2021-12-23 08:33 | disposition home or self-care (01) ==
LOC: JP.ED 21:01
DX: K72.10 Chronic hepatic failure without coma (principal); R44.0 Auditory hallucinations; R44.1 Visual hallucinations; R45.1 Restlessness and agitation; E87.6 Hypokalemia; F10.129 Alcohol abuse with intoxication, unspecified; I25.10 Atherosclerotic heart disease of native coronary artery without angina pectoris; I25.2 Old myocardial infarction; K21.9 Gastro-esophageal reflux disease without esophagitis; Z91.013 Allergy to seafood; Z91.09 Other allergy status, other than to drugs and biological substances; Z88.8 Allergy status to other drugs, medicaments and biological substances; Z79.899 Other long term (current) drug therapy; Z86.73 Personal history of transient ischemic attack (TIA), and cerebral infarction without residual deficits; Y90.8 Blood alcohol level of 240 mg/100 ml or more
CPT/HCPCS: 36415; 80053; 80307; 82140; 85025; 96372; 99284; 99285; A9270-GY; J1200; J1630; J2060

== ENCOUNTER 2021-12-24 15:30 | Emergency (ER) | payer MEDICAID | END 2021-12-24 17:05 | disposition home or self-care (01) | LOC: JP.ED 15:30 | DX: F10.120 Alcohol abuse with intoxication, uncomplicated (principal); F17.210 Nicotine dependence, cigarettes, uncomplicated; I25.10 Atherosclerotic heart disease of native coronary artery without angina pectoris; I25.2 Old myocardial infarction; K21.9 Gastro-esophageal reflux disease without esophagitis; J45.909 Unspecified asthma, uncomplicated; Z86.73 Personal history of transient ischemic attack (TIA), and cerebral infarction without residual deficits; Z79.899 Other long term (current) drug therapy; Z91.013 Allergy to seafood; Z91.018 Allergy to other foods; Z91.09 Other allergy status, other than to drugs and biological substances | CPT/HCPCS: 99281; 99284 ==

== ENCOUNTER 2022-01-18 16:20 | Emergency (ER) | payer MEDICAID ==
[2022-01-18] MEDS ORDERED: Ondansetron 4 MG/2 ML SDV IVPUSH ONE ×2 (16:48→17:49)
[2022-01-18] MEDS ORDERED: Sodium Chloride 0.9% 1,000 ML IV SCH ×2 (17:00→17:45)
[2022-01-18] MEDS ORDERED: Pantoprazole 40 MG Vial IVPUSH ONE (17:41)
[2022-01-18] MEDS ORDERED: Ketorolac 30 MG/ML SDV IVPUSH ONE (18:24)
== END 2022-01-18 19:25 | disposition home or self-care (01) ==
LOC: JP.ED 16:20
DX: K52.9 Noninfective gastroenteritis and colitis, unspecified (principal); R11.2 Nausea with vomiting, unspecified; I25.10 Atherosclerotic heart disease of native coronary artery without angina pectoris; I25.2 Old myocardial infarction; K21.9 Gastro-esophageal reflux disease without esophagitis; Z86.73 Personal history of transient ischemic attack (TIA), and cerebral infarction without residual deficits; Z91.013 Allergy to seafood; Z88.8 Allergy status to other drugs, medicaments and biological substances; Z72.0 Tobacco use
CPT/HCPCS: 36415; 80053; 81001; 85025; 96374; 96375; 96376; 99282; 99284-25; C9113; J1885; J2405; J7030

== ENCOUNTER 2022-01-19 09:44 | Emergency (ER) | payer MEDICAID ==
[2022-01-19] MEDS ORDERED: Sodium Chloride 0.9% 10 ML Syringe FLUSH PRN (10:05)
[2022-01-19] MEDS ORDERED: Ondansetron 4 MG/2 ML SDV IVPUSH ONE (10:06)
[2022-01-19] MEDS ORDERED: Sodium Chloride 0.9% 1,000 ML IV ONE (10:10)
[2022-01-19] MEDS ORDERED: HYDROmorphone 0.5 MG/0.5 ML Syringe IVPUSH ONE (10:28)
[2022-01-19] MEDS ORDERED: Promethazine 12.5 MG in Sodium Chloride 0.9% 50 ML IV ONE (10:28)
[2022-01-19 11:14] LABS: CORONAVIRUS COVID-19 NAA NEGATIVE (NEGATIVE)
[2022-01-19] MEDS ORDERED: Potassium Chloride 20 MEQ Tab.ER PO ONE (11:35)
[2022-01-19] MEDS ORDERED: Nitrofurantoin Monohydrate/Macrocrystalline 100 MG Cap PO ONE (11:36)
== END 2022-01-19 12:20 | disposition home or self-care (01) ==
LOC: JP.ED 09:44
DX: K52.9 Noninfective gastroenteritis and colitis, unspecified (principal); E87.6 Hypokalemia; I25.10 Atherosclerotic heart disease of native coronary artery without angina pectoris; I25.2 Old myocardial infarction; K21.9 Gastro-esophageal reflux disease without esophagitis; Z86.73 Personal history of transient ischemic attack (TIA), and cerebral infarction without residual deficits; Z91.013 Allergy to seafood; Z88.8 Allergy status to other drugs, medicaments and biological substances; Z91.048 Other nonmedicinal substance allergy status; Z72.0 Tobacco use; Z20.822 Contact with and (suspected) exposure to COVID-19
CPT/HCPCS: 0241U; 36415; 80053; 81001; 83735; 85025; 87086; 96365; 96375; 99284; A9270; J1170; J2550; J3490; J7030

== ENCOUNTER 2022-01-30 13:57 | Emergency (ER) | payer MEDICAID ==
[2022-01-30] MEDS ORDERED: Sodium Chloride 0.9% 10 ML Syringe FLUSH PRN (14:18)
[2022-01-30 15:11] LABS: TROPONIN I HIGH SENSITIVITY 8.3 pg/mL (<=60.3)
[2022-01-30] MEDS ORDERED: Lactulose Soln 10 GM/15 ML 15 ML UD Cup PO ONE ×2 (16:43→18:07)
[2022-01-30] MEDS ORDERED: Naloxone 0.4 MG/ML SDV IVPUSH ONE (16:43)
[2022-01-30] MEDS ORDERED: Lactulose Soln 10 GM/15 ML ML 473 ML Bottle RECTAL ONE (17:00)
[2022-01-30] MEDS ORDERED: Sulfamethoxazole/Trimethoprim 10 ML in Dextrose 5% in Water 250 ML IV SCH ×2 (17:15)
[2022-01-30] MEDS ORDERED: Lactated Ringers 1,000 ML IV ONE (18:04)
== END 2022-01-30 22:21 | disposition home or self-care (01) ==
LOC: JP.ED 13:57
DX: E72.20 Disorder of urea cycle metabolism, unspecified (principal); F10.929 Alcohol use, unspecified with intoxication, unspecified; I25.10 Atherosclerotic heart disease of native coronary artery without angina pectoris; I25.2 Old myocardial infarction; J45.909 Unspecified asthma, uncomplicated; I10 Essential (primary) hypertension; K21.9 Gastro-esophageal reflux disease without esophagitis; Z91.19 Patient's noncompliance with other medical treatment and regimen; Z86.73 Personal history of transient ischemic attack (TIA), and cerebral infarction without residual deficits; Z90.49 Acquired absence of other specified parts of digestive tract; Z79.899 Other long term (current) drug therapy; Z20.822 Contact with and (suspected) exposure to COVID-19
CPT/HCPCS: 36415; 80053; 80305-QW; 80307; 81001; 82140; 83605; 84484; 85025; 93005; 93010; 96365; 96375; 99285; 99285-25; A9270-GY; J2310; J3490; J7060; J7120; U0002

== ENCOUNTER 2022-02-06 13:09 | Emergency (ER) | payer MEDICAID | END 2022-02-06 17:10 | disposition home or self-care (01) | LOC: JP.ED 13:09 | DX: R53.1 Weakness (principal); I25.10 Atherosclerotic heart disease of native coronary artery without angina pectoris; I25.2 Old myocardial infarction; K21.9 Gastro-esophageal reflux disease without esophagitis; F17.210 Nicotine dependence, cigarettes, uncomplicated; Z86.73 Personal history of transient ischemic attack (TIA), and cerebral infarction without residual deficits; Z91.013 Allergy to seafood; Z91.048 Other nonmedicinal substance allergy status; Z88.8 Allergy status to other drugs, medicaments and biological substances; Z79.899 Other long term (current) drug therapy | CPT/HCPCS: 36415; 80048; 82140; 82150; 83690; 85025; 99282; 99284 ==

== ENCOUNTER 2022-02-11 14:20 | Emergency (ER) | payer MEDICAID ==
[2022-02-11] MEDS ORDERED: MVI, Adult with Vitamin K 10 ML, Thiamine 200 MG, Folic Acid 1 MG, Magnesium Sulfate 2 ... IV ONE ×5 (14:57)
[2022-02-11] MEDS ORDERED: Sodium Chloride 0.9% 10 ML Syringe FLUSH PRN (14:57)
[2022-02-11] MEDS: Acetaminophen 325 MG Tab PO ONE ×2 (16:46→16:52)
[2022-02-11] MEDS ORDERED: fentaNYL 100 MCG/2 ML SDV IVPUSH ONE (16:49)
== END 2022-02-11 18:30 | disposition home or self-care (01) ==
LOC: JP.ED 14:20
DX: F10.929 Alcohol use, unspecified with intoxication, unspecified (principal); I25.10 Atherosclerotic heart disease of native coronary artery without angina pectoris; I25.2 Old myocardial infarction; J45.909 Unspecified asthma, uncomplicated; K21.9 Gastro-esophageal reflux disease without esophagitis; Z86.73 Personal history of transient ischemic attack (TIA), and cerebral infarction without residual deficits; Z90.49 Acquired absence of other specified parts of digestive tract; Z87.891 Personal history of nicotine dependence; Z79.899 Other long term (current) drug therapy; Z91.013 Allergy to seafood; Z88.8 Allergy status to other drugs, medicaments and biological substances; Z91.018 Allergy to other foods
CPT/HCPCS: 36415; 80305; 80307; 96365; 96366; 96375; 99284; J3010; J3411; J3475; J7121; A9270-GY; J3490

== ENCOUNTER 2022-02-21 09:46 | Emergency (ER) | payer MEDICAID ==
[2022-02-21] MEDS ORDERED: Ketamine 500 MG/5 ML MDV IM ONE (09:51)
[2022-02-21] MEDS ORDERED: LORazepam 2 MG/ML SDV IM ONE (13:56)
[2022-02-21] MEDS ORDERED: Haloperidol Lactate 5 MG/ML SDV IVPUSH ONE (13:56)
[2022-02-21] MEDS ORDERED: diphenhydrAMINE 50 MG/ML SDV IM ONE (13:57)
[2022-02-21 14:11] LABS: ESTIMATED GFR > 60 (>60)
== END 2022-02-22 01:46 | disposition home or self-care (01) ==
LOC: JP.ED 09:46
DX: F10.221 Alcohol dependence with intoxication delirium (principal); E87.1 Hypo-osmolality and hyponatremia; R45.1 Restlessness and agitation; I25.10 Atherosclerotic heart disease of native coronary artery without angina pectoris; I25.2 Old myocardial infarction; K21.9 Gastro-esophageal reflux disease without esophagitis; F17.210 Nicotine dependence, cigarettes, uncomplicated; Z86.73 Personal history of transient ischemic attack (TIA), and cerebral infarction without residual deficits; Z91.013 Allergy to seafood; Z88.8 Allergy status to other drugs, medicaments and biological substances; Z91.048 Other nonmedicinal substance allergy status; Z79.899 Other long term (current) drug therapy; Y90.8 Blood alcohol level of 240 mg/100 ml or more
CPT/HCPCS: 36415; 80053; 80305; 80307; 85025; 96372; 96374; 99285; J1200; J1630; J2060

== ENCOUNTER 2022-03-07 17:43 | Emergency (ER) | payer MEDICAID ==
[2022-03-07 18:59] LABS: ESTIMATED GFR 106 mL/min (>60)
== END 2022-03-08 10:05 | disposition other institution (70) ==
LOC: JP.ED 17:43
DX: F33.1 Major depressive disorder, recurrent, moderate (principal); S50.819A Abrasion of unspecified forearm, initial encounter; I25.10 Atherosclerotic heart disease of native coronary artery without angina pectoris; I25.2 Old myocardial infarction; I10 Essential (primary) hypertension; K21.9 Gastro-esophageal reflux disease without esophagitis; Z91.013 Allergy to seafood; Z88.8 Allergy status to other drugs, medicaments and biological substances; Z91.048 Other nonmedicinal substance allergy status; Z79.899 Other long term (current) drug therapy
CPT/HCPCS: 36415; 80053; 80305-QW; 80307; 81001; 85025; 99283; 99285

== ENCOUNTER 2022-03-23 15:22 | Emergency (ER) | payer MEDICAID ==
[2022-03-23] MEDS ORDERED: oxyCODONE 5 MG Tab PO ONE (15:54)
[2022-03-23] MEDS ORDERED: fentaNYL 100 MCG/2 ML SDV IM ONE (16:23)
[2022-03-23] MEDS ORDERED: Ondansetron 4 MG Tab.DIS PO ONE (16:23)
[2022-03-23] MEDS ORDERED: Doxycycline 100 MG Cap PO ONE (18:23)
[2022-03-23] MEDS ORDERED: cefTRIAXone 0.5 GM, Lidocaine 1% 1 ML IM ONE ×2 (18:23)
[2022-03-23] MEDS ORDERED: metroNIDAZOLE 250 MG Tab PO ONE (18:30)
[2022-03-23] MEDS ORDERED: metroNIDAZOLE 250 MG Tab ONE ×2 (18:43→18:47)
[2022-03-23] MEDS ORDERED: Diphtheria,Pertussis(Acell),Tetanus Vaccine 0.5 ML Syringe IM ONE (19:14)
== END 2022-03-23 19:49 | disposition home or self-care (01) ==
LOC: JP.ED 15:22
DX: T76.21XA Adult sexual abuse, suspected, initial encounter (principal); I25.10 Atherosclerotic heart disease of native coronary artery without angina pectoris; J45.909 Unspecified asthma, uncomplicated; K21.9 Gastro-esophageal reflux disease without esophagitis; I25.2 Old myocardial infarction; I10 Essential (primary) hypertension; Z91.013 Allergy to seafood; Z88.8 Allergy status to other drugs, medicaments and biological substances; Z88.1 Allergy status to other antibiotic agents; Z91.018 Allergy to other foods; Z79.899 Other long term (current) drug therapy; Z86.73 Personal history of transient ischemic attack (TIA), and cerebral infarction without residual deficits; Z90.49 Acquired absence of other specified parts of digestive tract; Z23 Encounter for immunization
CPT/HCPCS: 36415; 87449; 90471; 90715; 96372; 99283; 99285; A9270; J0696; J3010; Q0162

== ENCOUNTER 2022-03-29 13:04 | Emergency (ER) | payer MEDICAID | END 2022-03-29 15:38 | disposition home or self-care (01) | LOC: JP.ED 13:04 | DX: F10.120 Alcohol abuse with intoxication, uncomplicated (principal); I25.10 Atherosclerotic heart disease of native coronary artery without angina pectoris; I25.2 Old myocardial infarction; I10 Essential (primary) hypertension; Z86.73 Personal history of transient ischemic attack (TIA), and cerebral infarction without residual deficits; Z91.013 Allergy to seafood; Z88.8 Allergy status to other drugs, medicaments and biological substances; Z91.09 Other allergy status, other than to drugs and biological substances; Z79.899 Other long term (current) drug therapy; Y90.8 Blood alcohol level of 240 mg/100 ml or more | CPT/HCPCS: 36415; 80048; 80305-QW; 80307; 81001; 85025; 99284 ==

== ENCOUNTER 2022-04-02 19:33 | Emergency (ER) | payer MEDICAID ==
[2022-04-02] MEDS ORDERED: Sodium Chloride 0.9% 10 ML Syringe FLUSH PRN (20:04)
[2022-04-02] MEDS ORDERED: Prochlorperazine 10 MG/2 ML SDV IVPUSH ONE (20:04)
[2022-04-02] MEDS ORDERED: Morphine 2 MG/ML SYRINGE IVPUSH ONE (20:06)
[2022-04-02 21:06] LABS: ESTIMATED GFR 90 mL/min (>60)
[2022-04-02] MEDS ORDERED: Sodium Chloride 0.9% 500 ML IV ONE (21:18)
== END 2022-04-02 23:05 | disposition home or self-care (01) ==
LOC: JP.ED 19:33
DX: I25.10 Atherosclerotic heart disease of native coronary artery without angina pectoris (principal); D69.3 Immune thrombocytopenic purpura; I25.2 Old myocardial infarction; I10 Essential (primary) hypertension; Z91.013 Allergy to seafood; Z88.8 Allergy status to other drugs, medicaments and biological substances; Z91.018 Allergy to other foods; Z79.899 Other long term (current) drug therapy; Z86.73 Personal history of transient ischemic attack (TIA), and cerebral infarction without residual deficits; Z20.822 Contact with and (suspected) exposure to COVID-19
CPT/HCPCS: 36415; 80053; 83690; 84484; 85025; 85379; 85651; 87635; 93005; 96361; 96374; 96375; 99285; J0780; J2270; J3490; J7040; U0002

== ENCOUNTER 2022-04-21 18:24 | Emergency (ER) | payer MEDICAID ==
[2022-04-21] MEDS ORDERED: Acetaminophen/HYDROcodone 325-5 MG Tab PO ONE (18:33)
[2022-04-21] MEDS ORDERED: oxyCODONE 5 MG Tab PO ONE (18:40)
[2022-04-21 19:06] LABS: ESTIMATED GFR 90 mL/min (>60)
== END 2022-04-21 20:53 | disposition home or self-care (01) ==
LOC: JP.ED 18:24
DX: S70.01XA Contusion of right hip, initial encounter (principal); S70.11XA Contusion of right thigh, initial encounter; F10.29 Alcohol dependence with unspecified alcohol-induced disorder; I25.10 Atherosclerotic heart disease of native coronary artery without angina pectoris; J45.909 Unspecified asthma, uncomplicated; I25.2 Old myocardial infarction; F17.210 Nicotine dependence, cigarettes, uncomplicated; Z91.013 Allergy to seafood; Z88.8 Allergy status to other drugs, medicaments and biological substances; Z88.1 Allergy status to other antibiotic agents; Z91.018 Allergy to other foods; Z79.899 Other long term (current) drug therapy; Z90.49 Acquired absence of other specified parts of digestive tract; W18.39XA Other fall on same level, initial encounter
CPT/HCPCS: 36415; 73502; 80053; 82550; 85025; 99284; A9270

== ENCOUNTER 2022-04-24 21:59 | Emergency (ER) | payer MEDICAID ==
[2022-04-24] MEDS ORDERED: LORazepam 1 MG Tab PO ONE (23:29)
== END 2022-04-25 08:37 | disposition home or self-care (01) ==
LOC: JP.ED 21:59
DX: N39.0 Urinary tract infection, site not specified (principal); R42 Dizziness and giddiness; I25.10 Atherosclerotic heart disease of native coronary artery without angina pectoris; I25.2 Old myocardial infarction; K21.9 Gastro-esophageal reflux disease without esophagitis; Z86.73 Personal history of transient ischemic attack (TIA), and cerebral infarction without residual deficits; Z91.013 Allergy to seafood; Z91.09 Other allergy status, other than to drugs and biological substances; Z88.8 Allergy status to other drugs, medicaments and biological substances; Z79.899 Other long term (current) drug therapy
CPT/HCPCS: 81001; 87086; 87088; 87186; 99283; 99284; A9270

== ENCOUNTER 2022-04-27 15:15 | Emergency (ER) | payer MEDICAID | END 2022-04-27 15:48 | disposition left against medical advice (07) | LOC: JP.ED 15:15 | DX: J06.9 Acute upper respiratory infection, unspecified (principal); I25.10 Atherosclerotic heart disease of native coronary artery without angina pectoris; K21.9 Gastro-esophageal reflux disease without esophagitis; I25.2 Old myocardial infarction; I10 Essential (primary) hypertension; Z91.013 Allergy to seafood; Z88.8 Allergy status to other drugs, medicaments and biological substances; Z91.018 Allergy to other foods; Z79.899 Other long term (current) drug therapy; Z90.49 Acquired absence of other specified parts of digestive tract; Z20.822 Contact with and (suspected) exposure to COVID-19 | CPT/HCPCS: 99283; U0002 ==

== ENCOUNTER 2022-04-28 12:12 | Emergency (ER) | payer MEDICAID | END 2022-04-28 13:52 | disposition home or self-care (01) | LOC: JP.ED 12:12 | DX: B34.9 Viral infection, unspecified (principal); I25.10 Atherosclerotic heart disease of native coronary artery without angina pectoris; I25.2 Old myocardial infarction; Z91.013 Allergy to seafood; Z88.8 Allergy status to other drugs, medicaments and biological substances; Z91.018 Allergy to other foods; Z79.899 Other long term (current) drug therapy; Z86.73 Personal history of transient ischemic attack (TIA), and cerebral infarction without residual deficits; Z90.49 Acquired absence of other specified parts of digestive tract | CPT/HCPCS: 99283 ==

== ENCOUNTER 2022-04-29 18:50 | Emergency (ER) | payer MEDICAID ==
[2022-04-29 19:25] LABS: ESTIMATED GFR 90 mL/min (>60)
== END 2022-04-29 21:19 | disposition home or self-care (01) ==
LOC: JP.ED 18:50
DX: S16.1XXA Strain of muscle, fascia and tendon at neck level, initial encounter (principal); S09.90XA Unspecified injury of head, initial encounter; F10.920 Alcohol use, unspecified with intoxication, uncomplicated; I25.10 Atherosclerotic heart disease of native coronary artery without angina pectoris; I25.2 Old myocardial infarction; K21.9 Gastro-esophageal reflux disease without esophagitis; Z91.013 Allergy to seafood; Z91.048 Other nonmedicinal substance allergy status; Z86.73 Personal history of transient ischemic attack (TIA), and cerebral infarction without residual deficits; Y90.8 Blood alcohol level of 240 mg/100 ml or more; Z86.011 Personal history of benign neoplasm of the brain; W18.09XA Striking against other object with subsequent fall, initial encounter
CPT/HCPCS: 36415; 70450; 72125; 80053; 80307; 85025; 99285

== ENCOUNTER 2022-05-01 15:32 | Emergency (ER) | payer MEDICAID | END 2022-05-01 17:44 | disposition left against medical advice (07) | LOC: JP.ED 15:32 | DX: Z53.21 Procedure and treatment not carried out due to patient leaving prior to being seen by health care provider (principal) | CPT/HCPCS: 81001 ==

== ENCOUNTER 2022-05-02 15:17 | Emergency (ER) | payer MEDICAID | END 2022-05-02 16:08 | disposition left against medical advice (07) | LOC: JP.ED 15:17 | DX: S70.01XA Contusion of right hip, initial encounter (principal); F10.920 Alcohol use, unspecified with intoxication, uncomplicated; I25.10 Atherosclerotic heart disease of native coronary artery without angina pectoris; I25.2 Old myocardial infarction; I10 Essential (primary) hypertension; K21.9 Gastro-esophageal reflux disease without esophagitis; F17.210 Nicotine dependence, cigarettes, uncomplicated; Z86.73 Personal history of transient ischemic attack (TIA), and cerebral infarction without residual deficits; Z91.013 Allergy to seafood; Z88.8 Allergy status to other drugs, medicaments and biological substances; Z88.5 Allergy status to narcotic agent; Z91.048 Other nonmedicinal substance allergy status; Z79.899 Other long term (current) drug therapy; Y90.8 Blood alcohol level of 240 mg/100 ml or more; W18.30XA Fall on same level, unspecified, initial encounter | CPT/HCPCS: 36415; 72040; 72040-26; 73502-26-RT; 73502-RT; 80307; 99284 ==

== ENCOUNTER 2022-05-03 17:07 | Emergency (ER) | payer MEDICAID | END 2022-05-03 18:00 | disposition left against medical advice (07) | LOC: JP.ED 17:07 | DX: Z53.21 Procedure and treatment not carried out due to patient leaving prior to being seen by health care provider (principal) ==

== ENCOUNTER 2022-05-04 19:26 | Emergency (ER) | payer MEDICAID ==
[2022-05-04] MEDS ORDERED: Meclizine 25 MG Tab PO ONE (20:52)
[2022-05-04 21:41] LABS: TROPONIN I HIGH SENSITIVITY 10.7 pg/mL (<=60.3)
[2022-05-04] MEDS: Meclizine 25 MG Tab ONE ×2 (21:58→22:38)
== END 2022-05-05 03:02 | disposition home or self-care (01) ==
LOC: JP.ED 19:26
DX: F10.920 Alcohol use, unspecified with intoxication, uncomplicated (principal); I25.10 Atherosclerotic heart disease of native coronary artery without angina pectoris; I25.2 Old myocardial infarction; K21.9 Gastro-esophageal reflux disease without esophagitis; F17.210 Nicotine dependence, cigarettes, uncomplicated; Z91.013 Allergy to seafood; Z88.1 Allergy status to other antibiotic agents; Z91.018 Allergy to other foods; Z88.8 Allergy status to other drugs, medicaments and biological substances; Z79.899 Other long term (current) drug therapy; Z86.73 Personal history of transient ischemic attack (TIA), and cerebral infarction without residual deficits; Z90.49 Acquired absence of other specified parts of digestive tract
CPT/HCPCS: 36415; 80048; 84484; 85025; 93005; 99285; A9270

== ENCOUNTER 2022-05-14 23:38 | Emergency (ER) | payer MEDICAID ==
[2022-05-14] MEDS ORDERED: Sodium Chloride 0.9% 10 ML Syringe FLUSH PRN (23:56)
[2022-05-14] MEDS ORDERED: Sodium Chloride 0.9% 500 ML IV ONE (23:57)
[2022-05-14] MEDS ORDERED: Nitroglycerin 0.4 MG Tab.SL SL ONE (23:57)
[2022-05-15 00:24] LABS: ESTIMATED GFR 55 mL/min (>60)
[2022-05-15] MEDS ORDERED: Alum Hydrox/Mag Hydrox/Simeth 15 ML, Lidocaine 2% 15 ML PO ONE ×2 (00:24)
[2022-05-15] MEDS ORDERED: Magnesium Sulfate/Water 2 GM in Premix Bag 1 BAG IV ONE (00:29)
[2022-05-15] MEDS ORDERED: Morphine 2 MG/ML SYRINGE IVPUSH ONE (00:56)
== END 2022-05-15 03:03 | disposition home or self-care (01) ==
LOC: JP.ED 23:38
DX: I25.10 Atherosclerotic heart disease of native coronary artery without angina pectoris (principal); K21.9 Gastro-esophageal reflux disease without esophagitis; D69.6 Thrombocytopenia, unspecified; E87.6 Hypokalemia; F10.29 Alcohol dependence with unspecified alcohol-induced disorder; I25.2 Old myocardial infarction; I10 Essential (primary) hypertension; F17.210 Nicotine dependence, cigarettes, uncomplicated; Z91.013 Allergy to seafood; Z88.8 Allergy status to other drugs, medicaments and biological substances; Z88.1 Allergy status to other antibiotic agents; Z91.018 Allergy to other foods; Z79.899 Other long term (current) drug therapy; Z90.49 Acquired absence of other specified parts of digestive tract
CPT/HCPCS: 36415; 71045; 80053; 80307; 81001; 83735; 84484; 85025; 85610; 85730; 93005; 96361; 96365; 96366; 96375; 99285; A9270; J2270; J3475; J3490; J7040

== ENCOUNTER 2022-05-16 09:45 | Emergency (ER) | payer MEDICAID ==
[2022-05-16 10:48] LABS: ESTIMATED GFR 62 mL/min (>60)
== END 2022-05-16 11:30 | disposition home or self-care (01) ==
LOC: JP.ED 09:45
DX: F22 Delusional disorders (principal); F41.9 Anxiety disorder, unspecified; I25.10 Atherosclerotic heart disease of native coronary artery without angina pectoris; I25.2 Old myocardial infarction; K21.9 Gastro-esophageal reflux disease without esophagitis; Z86.73 Personal history of transient ischemic attack (TIA), and cerebral infarction without residual deficits; Z91.013 Allergy to seafood; Z91.048 Other nonmedicinal substance allergy status; Z88.8 Allergy status to other drugs, medicaments and biological substances; Z79.899 Other long term (current) drug therapy; Z87.19 Personal history of other diseases of the digestive system
CPT/HCPCS: 36415; 80053; 82140; 99285

== ENCOUNTER 2022-05-24 22:04 | Emergency (ER) | payer MEDICAID ==
[2022-05-24 23:12] LABS: ESTIMATED GFR 90 mL/min (>60)
== END 2022-05-25 00:23 | disposition home or self-care (01) ==
LOC: JP.ED 22:04
DX: F10.920 Alcohol use, unspecified with intoxication, uncomplicated (principal); F15.10 Other stimulant abuse, uncomplicated; I25.10 Atherosclerotic heart disease of native coronary artery without angina pectoris; I25.2 Old myocardial infarction; Z91.013 Allergy to seafood; Z88.8 Allergy status to other drugs, medicaments and biological substances; Z88.1 Allergy status to other antibiotic agents; Z91.018 Allergy to other foods; Z79.899 Other long term (current) drug therapy; Z90.49 Acquired absence of other specified parts of digestive tract
CPT/HCPCS: 36415; 36600; 80053; 80305-QW; 80307; 81001; 82803; 84484; 85025; 85379; 86140; 93005; 99284

== ENCOUNTER 2022-05-25 11:57 | Emergency (ER) | payer MEDICAID | END 2022-05-25 13:12 | disposition home or self-care (01) | LOC: JP.ED 11:57 | DX: R07.89 Other chest pain (principal); F41.9 Anxiety disorder, unspecified; F19.10 Other psychoactive substance abuse, uncomplicated; I25.2 Old myocardial infarction; Z91.013 Allergy to seafood; Z88.8 Allergy status to other drugs, medicaments and biological substances; Z88.1 Allergy status to other antibiotic agents; Z91.018 Allergy to other foods; Z79.899 Other long term (current) drug therapy; Z90.49 Acquired absence of other specified parts of digestive tract | CPT/HCPCS: 93005; 99285 ==

== ENCOUNTER 2022-06-23 15:00 | Emergency (ER) | payer MEDICAID ==
[2022-06-23] MEDS ORDERED: Potassium Chloride 10 MEQ Cap.ER ONE (16:20)
[2022-06-23] MEDS ORDERED: Ondansetron 4 MG Tab.DIS ONE (16:20)
[2022-07-18 19:09] LABS: ESTIMATED GFR 69 mL/min (>60)
== END 2022-06-23 16:25 | disposition home or self-care (01) ==
LOC: JP.ED 15:00
DX: E87.6 Hypokalemia (principal); F15.10 Other stimulant abuse, uncomplicated; F10.10 Alcohol abuse, uncomplicated
CPT/HCPCS: 36415; 80053; 80305; 80307; 81001; 85027; 93005; 99284; A9270; Q0162

== ENCOUNTER 2022-06-25 20:51 | Emergency (ER) | payer MEDICAID ==
[2022-06-25] MEDS ORDERED: Potassium Chloride 20 MEQ Tab.ER PO ONE (23:00)
[2022-06-25] MEDS ORDERED: Potassium Chloride 100 ML IV SCH (23:00)
[2022-06-25] MEDS ORDERED: Magnesium Sulfate/Water 50 ML IV ONE (23:30)
[2022-06-26] MEDS ORDERED: diphenhydrAMINE 50 MG/ML SDV IVPUSH ONE (03:00)
[2022-06-26] MEDS ORDERED: Ondansetron 4 MG/2 ML SDV IVPUSH ONE (03:30)
[2022-06-26] MEDS ORDERED: Prochlorperazine 10 MG/2 ML SDV IV ONE ×2 (04:00→10:30)
[2022-06-26] MEDS ORDERED: Potassium Chloride 20 MEQ Tab.ER PO ONE (06:00)
[2022-06-26] MEDS ORDERED: Ondansetron 4 MG Tab.DIS PO ONE (09:00)
[2022-06-26] MEDS ORDERED: Promethazine 25 MG Tab PO PRN (22:30)
[2022-06-26] MEDS ORDERED: Ondansetron 4 MG Tab.DIS PO PRN (22:30)
[2022-06-26] MEDS ORDERED: oxyCODONE 5 MG Tab PO PRN (22:30)
[2022-06-26] MEDS ORDERED: Albuterol 90 MCG/6.7 GM Inhaler INH PRN (22:30)
[2022-06-26] MEDS ORDERED: Topiramate 100 MG Tab PO SCH (22:30)
[2022-06-27] MEDS ORDERED: Sucralfate 1 GM Tab PO SCH (07:00)
[2022-06-27] MEDS ORDERED: Folic Acid 1 MG Tab PO SCH (09:00)
[2022-06-27] MEDS ORDERED: Lactulose Soln 10 GM/15 ML 15 ML UD Cup PO SCH (09:00)
[2022-06-27] MEDS ORDERED: Thiamine 100 MG Tab PO SCH (09:00)
[2022-06-27] MEDS ORDERED: Pantoprazole 40 MG Tab.CR PO SCH (09:00)
[2022-06-27] MEDS ORDERED: Cetirizine 10 MG Tab PO SCH (09:00)
[2022-06-27] MEDS ORDERED: levETIRAcetam 250 MG Tab PO SCH (09:00)
[2022-06-27] MEDS ORDERED: Gabapentin 100 MG Cap PO SCH (09:00)
[2022-06-27] MEDS ORDERED: Midodrine 5 MG Tab PO SCH (09:00)
[2022-06-27] MEDS ORDERED: Furosemide 20 MG Tab PO SCH (09:00)
[2022-07-20 19:32] LABS: ESTIMATED GFR 69 mL/min (>60)
== END 2022-06-27 16:45 | disposition home or self-care (01) ==
LOC: JP.ED 20:51
DX: R45.851 Suicidal ideations (principal); K70.9 Alcoholic liver disease, unspecified; E87.6 Hypokalemia; E87.1 Hypo-osmolality and hyponatremia; I25.10 Atherosclerotic heart disease of native coronary artery without angina pectoris; F10.129 Alcohol abuse with intoxication, unspecified
CPT/HCPCS: 36415; 80048; 80143; 80179; 80305; 80307; 82140; 82803; 84075; 84132; 84450; 84460; 85014; 85018; 85027; 85610; 86850; 86900; 86901; 87635; 96365; 96367; 96368; 96375; 96376; 99285; A9270; J0780; J1200; J2405; J3475; J3480; Q0162; U0002

== ENCOUNTER 2022-09-01 21:55 | Emergency (ER) | payer MEDICAID ==
[2022-09-01 22:50] LABS: ESTIMATED GFR 78 mL/min (>60); TROPONIN I HIGH SENSITIVITY 27.5 pg/mL (<=60.3)
[2022-09-01] MEDS ORDERED: Ketorolac 30 MG/ML SDV IVPUSH ONE (23:27)
[2022-09-01] MEDS ORDERED: Acetaminophen/HYDROcodone 325-5 MG Tab PO ONE (23:28)
[2022-09-01] MEDS ORDERED: Potassium Chloride 20 MEQ Tab.ER PO ONE (23:28)
[2022-09-01] MEDS ORDERED: Ketorolac 30 MG/ML SDV IM ONE (23:29)
== END 2022-09-02 09:31 | disposition home or self-care (01) ==
LOC: JP.ED 21:55
DX: S93.401A Sprain of unspecified ligament of right ankle, initial encounter (principal); R07.89 Other chest pain; F10.929 Alcohol use, unspecified with intoxication, unspecified; I25.10 Atherosclerotic heart disease of native coronary artery without angina pectoris; I25.2 Old myocardial infarction; J45.909 Unspecified asthma, uncomplicated; K21.9 Gastro-esophageal reflux disease without esophagitis; Y90.8 Blood alcohol level of 240 mg/100 ml or more; Z91.013 Allergy to seafood; Z88.8 Allergy status to other drugs, medicaments and biological substances; Z88.1 Allergy status to other antibiotic agents; Z91.018 Allergy to other foods; Z79.899 Other long term (current) drug therapy
CPT/HCPCS: 36415; 71045; 72100; 73610; 80053; 80305; 80307; 81001; 84484; 85025; 93005; 96372; 99285; A9270; J1885

== ENCOUNTER 2022-09-08 22:20 | Emergency (ER) | payer MEDICAID ==
[2022-09-08] MEDS ORDERED: OLANZapine 5 MG Tab PO ONE (23:01)
[2022-09-08 23:04] LABS: ESTIMATED GFR 78 mL/min (>60)
== END 2022-09-08 23:15 | disposition home or self-care (01) ==
LOC: JP.ED 22:20
DX: R44.1 Visual hallucinations (principal); F10.121 Alcohol abuse with intoxication delirium; I25.10 Atherosclerotic heart disease of native coronary artery without angina pectoris; I25.2 Old myocardial infarction; K21.9 Gastro-esophageal reflux disease without esophagitis; Z91.013 Allergy to seafood; Z88.8 Allergy status to other drugs, medicaments and biological substances; Z79.899 Other long term (current) drug therapy; Z95.1 Presence of aortocoronary bypass graft; Z87.820 Personal history of traumatic brain injury
CPT/HCPCS: 36415; 80053; 80305; 81001; 83690; 85025; 99284; A9270

== ENCOUNTER 2022-09-25 20:30 | Emergency (ER) | payer MEDICAID | END 2022-09-25 21:30 | disposition left against medical advice (07) | LOC: JP.ED 20:30 | DX: R60.0 Localized edema (principal); F10.129 Alcohol abuse with intoxication, unspecified; I25.10 Atherosclerotic heart disease of native coronary artery without angina pectoris; I25.2 Old myocardial infarction; I10 Essential (primary) hypertension; Z91.013 Allergy to seafood; Z88.1 Allergy status to other antibiotic agents; Z91.018 Allergy to other foods; Z88.8 Allergy status to other drugs, medicaments and biological substances; Z79.899 Other long term (current) drug therapy; Z90.49 Acquired absence of other specified parts of digestive tract | CPT/HCPCS: 36415; 80307; 99282; 99284 ==

== ENCOUNTER 2022-09-28 10:29 | Emergency (ER) | payer MEDICAID ==
[2022-09-28] MEDS ORDERED: Prochlorperazine 10 MG/2 ML SDV IVPUSH ONE (11:06)
[2022-09-28] MEDS ORDERED: Magnesium Sulfate/Water 2 GM in Premix Bag 1 BAG IV ONE (12:25)
[2022-09-28] MEDS ORDERED: Nitrofurantoin Monohydrate/Macrocrystalline 100 MG Cap PO ONE (13:30)
== END 2022-09-28 17:00 | disposition home or self-care (01) ==
LOC: JP.ED 10:29
DX: S00.03XA Contusion of scalp, initial encounter (principal); N30.01 Acute cystitis with hematuria; F10.229 Alcohol dependence with intoxication, unspecified; E83.42 Hypomagnesemia; F15.90 Other stimulant use, unspecified, uncomplicated; I25.10 Atherosclerotic heart disease of native coronary artery without angina pectoris; I25.2 Old myocardial infarction; I10 Essential (primary) hypertension; F17.210 Nicotine dependence, cigarettes, uncomplicated; Z86.73 Personal history of transient ischemic attack (TIA), and cerebral infarction without residual deficits; Z91.013 Allergy to seafood; Z88.8 Allergy status to other drugs, medicaments and biological substances; Y90.8 Blood alcohol level of 240 mg/100 ml or more; W18.09XA Striking against other object with subsequent fall, initial encounter
CPT/HCPCS: 36415; 70450; 80305; 80307; 81001; 83735; 85025; 87086; 87088; 87186; 96365; 96366; 96375; 99284; A9270; J0780; J3475; 99283

== ENCOUNTER 2022-09-30 09:17 | Emergency (ER) | payer MEDICAID ==
[2022-09-30] MEDS ORDERED: Sodium Chloride 0.9% 10 ML Syringe FLUSH PRN (09:39)
[2022-09-30] MEDS ORDERED: Lactated Ringers 1,000 ML IV SCH (09:45)
[2022-09-30 10:16] LABS: ESTIMATED GFR 78 mL/min (>60)
== END 2022-09-30 13:56 | disposition home or self-care (01) ==
LOC: JP.ED 09:17
DX: F10.920 Alcohol use, unspecified with intoxication, uncomplicated (principal); I25.10 Atherosclerotic heart disease of native coronary artery without angina pectoris; I25.2 Old myocardial infarction; J45.909 Unspecified asthma, uncomplicated; K21.9 Gastro-esophageal reflux disease without esophagitis; Y90.8 Blood alcohol level of 240 mg/100 ml or more; Z72.0 Tobacco use; Z91.013 Allergy to seafood; Z88.8 Allergy status to other drugs, medicaments and biological substances; Z88.1 Allergy status to other antibiotic agents; Z91.018 Allergy to other foods; Z91.048 Other nonmedicinal substance allergy status; Z79.899 Other long term (current) drug therapy
CPT/HCPCS: 36415; 80053; 80305-QW; 80307; 85025; 96360; 99283; 99284-25; J3490; J7120

== ENCOUNTER 2022-10-07 04:40 | Emergency (ER) | payer MEDICAID ==
[2022-10-07 05:29] LABS: ESTIMATED GFR 90 mL/min (>60)
[2022-10-07] MEDS ORDERED: Potassium Chloride 20 MEQ Tab.ER PO ONE (05:29)
[2022-10-07] MEDS ORDERED: Magnesium Oxide 400 MG Tab PO ONE (05:37)
[2022-10-07] MEDS ORDERED: Calcium Carbonate/Vitamin D3 1500 MG-400 Units Tab PO STA (05:37)
[2022-10-07] MEDS ORDERED: MVI, Adult with Vitamin K 10 ML, Thiamine 100 MG, Folic Acid 1 MG, Magnesium Sulfate 3 ... IV SCH ×5 (05:45)
== END 2022-10-07 08:21 | disposition home or self-care (01) ==
LOC: JP.ED 04:40
DX: M79.641 Pain in right hand (principal); M79.642 Pain in left hand; E87.6 Hypokalemia; D69.6 Thrombocytopenia, unspecified; E83.42 Hypomagnesemia; N39.0 Urinary tract infection, site not specified; F10.220 Alcohol dependence with intoxication, uncomplicated; I25.10 Atherosclerotic heart disease of native coronary artery without angina pectoris; I25.2 Old myocardial infarction; J45.909 Unspecified asthma, uncomplicated; K21.9 Gastro-esophageal reflux disease without esophagitis; Y90.8 Blood alcohol level of 240 mg/100 ml or more; Z91.013 Allergy to seafood; Z88.8 Allergy status to other drugs, medicaments and biological substances; Z91.018 Allergy to other foods; Z79.899 Other long term (current) drug therapy
CPT/HCPCS: 36415; 80053; 80305-QW; 80307; 81001; 83735; 85025; 86140; 87086; 87088; 87186; 96365; 99283-25; 99284; A9270-GY; J3411; J3475; J3490; J7030

== ENCOUNTER 2022-10-26 18:25 | Emergency (ER) | payer MEDICAID ==
[2022-10-26] MEDS ORDERED: Sodium Chloride 0.9% 10 ML Syringe FLUSH PRN (18:27)
[2022-10-26] MEDS ORDERED: Thiamine 100 MG Tab PO ONE (18:28)
[2022-10-26] MEDS ORDERED: Pantoprazole 40 MG Tab.CR PO ONE (18:29)
[2022-10-26] MEDS ORDERED: Ondansetron 4 MG Tab.DIS PO ONE (18:29)
[2022-10-26 19:20] LABS: ESTIMATED GFR 90 mL/min (>60)
[2022-10-26] MEDS ORDERED: Potassium Chloride 20 MEQ Tab.ER PO ONE (19:23)
[2022-10-26] MEDS ORDERED: Magnesium Sulfate/Water 2 GM in Premix Bag 1 BAG IV ONE (19:24)
[2022-10-26] MEDS: Potassium Chloride 10 MEQ in Premix Bag 1 BAG IV SCH ×2 (20:33→22:04)
[2022-10-26] MEDS ORDERED: Nitrofurantoin Monohydrate/Macrocrystalline 100 MG Cap PO ONE (21:35)
[2022-10-26] MEDS ORDERED: levETIRAcetam 250 MG Tab PO ONE (22:27)
== END 2022-10-27 08:10 | disposition home or self-care (01) ==
LOC: JP.ED 18:25
DX: K29.20 Alcoholic gastritis without bleeding (principal); F10.920 Alcohol use, unspecified with intoxication, uncomplicated; E87.6 Hypokalemia; E83.42 Hypomagnesemia; D69.6 Thrombocytopenia, unspecified; R82.71 Bacteriuria; R82.81 Pyuria; I25.10 Atherosclerotic heart disease of native coronary artery without angina pectoris; I25.2 Old myocardial infarction; K21.9 Gastro-esophageal reflux disease without esophagitis; Z86.73 Personal history of transient ischemic attack (TIA), and cerebral infarction without residual deficits; Z91.013 Allergy to seafood; Z88.8 Allergy status to other drugs, medicaments and biological substances; Z91.048 Other nonmedicinal substance allergy status; Z88.5 Allergy status to narcotic agent; Z79.899 Other long term (current) drug therapy
CPT/HCPCS: 36415; 80053; 80305-QW; 80307; 81001; 82803; 83605; 83690; 83735; 85025; 87086; 87088; 87186; 96365; 96366; 96367; 96368; 99284-25; 99285; A9270-GY; J3475; J3480; J3490; Q0162

== ENCOUNTER 2022-11-07 10:24 | Emergency (ER) | payer MEDICAID | END 2022-11-07 12:37 | disposition home or self-care (01) | LOC: JP.ED 10:24 | DX: S62.615A Displaced fracture of proximal phalanx of left ring finger, initial encounter for closed fracture (principal); I25.10 Atherosclerotic heart disease of native coronary artery without angina pectoris; I25.2 Old myocardial infarction; K21.9 Gastro-esophageal reflux disease without esophagitis; Z91.013 Allergy to seafood; Z88.8 Allergy status to other drugs, medicaments and biological substances; Z86.73 Personal history of transient ischemic attack (TIA), and cerebral infarction without residual deficits; Z72.0 Tobacco use; W19.XXXA Unspecified fall, initial encounter | CPT/HCPCS: 73090-26-LT; 73090-LT; 73130-26-LT; 73130-LT; 99282; 99284 ==

== ENCOUNTER 2022-11-13 15:03 | Emergency (ER) | payer MEDICAID | END 2022-11-13 18:26 | disposition home or self-care (01) | LOC: JP.ED 15:03 | DX: S90.02XA Contusion of left ankle, initial encounter (principal); J45.909 Unspecified asthma, uncomplicated; I25.10 Atherosclerotic heart disease of native coronary artery without angina pectoris; I25.2 Old myocardial infarction; I10 Essential (primary) hypertension; K21.9 Gastro-esophageal reflux disease without esophagitis; Z86.73 Personal history of transient ischemic attack (TIA), and cerebral infarction without residual deficits; Z91.013 Allergy to seafood; Z91.048 Other nonmedicinal substance allergy status; Z88.8 Allergy status to other drugs, medicaments and biological substances; Z79.899 Other long term (current) drug therapy; Z72.0 Tobacco use; W18.30XA Fall on same level, unspecified, initial encounter | CPT/HCPCS: 73610-26-LT; 73610-LT; 73630-26-LT; 73630-LT; 99283 ==